=== PATIENT | female | born 1955 | race Caucasian/White ===

== ENCOUNTER 2016-08-08 06:25 | Inpatient (IN) | payer OTHER ==
[2016-07-27 15:34] VITALS: BMI 27.0
[~2016-08-08] VITALS: Ht 154.9 cm; Wt 65.5 kg
[2016-08-08] VITALS (11 sets, daily range): BP systolic 124–140; BP diastolic 70–83; PULSE 58–100; TEMP 36.5–37.1; O2SAT 94–99; Ht 154.9 cm; Wt 65.5 kg
[~2016-08-08 06:25] MED LIST: ALBU1AER9 INH; ASPEC81 PO; CEFAZOLIN 1000MG/55 ML D5W IV SCH; CEFAZOLIN 2000 MG/60 ML D5W IV SCH; DIAZ-165 PO; HYDR500C3 PO; IBUP-1050 PO; LACTATED RINGER'S 1000ML 1,000 ML IV SCH; LACTATED RINGER'S 1000ML 500 ML IV ONE; MOME200A INH; PARO1TAB27 PO; PRMVC TOP; TIOT1SPR INH; TRMO2580 TOP; [UNRECOGNIZED DRUG - CODE] TOP
[2016-08-08] MEDS ORDERED: EYE OPB (07:01)
[2016-08-08] MEDS ORDERED: FENTANYL CITRATE INJ 50 MCG/1 ML 2 ML VIAL ONE (07:54)
[2016-08-08] MEDS ORDERED: MIDAZOLAM HCL 1 MG/ML 2ML VIAL ONE (07:54)
[2016-08-08] MEDS ORDERED: MEPERIDINE HCL 25 MG/ML CARP IV PRN (08:15)
[2016-08-08] MEDS ORDERED: ATROPINE SULFATE 0.1 MG/ML 5ML SYR IV PRN (08:15)
[2016-08-08] MEDS ORDERED: EpHEDrine SULFATE INJ 50 MG/ML AMP IV PRN (08:15)
[2016-08-08] MEDS ORDERED: FENTANYL CITRATE INJ 50 MCG/1 ML 2 ML VIAL IV PRN (08:15)
[2016-08-08] MEDS ORDERED: LABETALOL HCL IV 5 MG/ML 20ML IV PRN (08:15)
[2016-08-08] MEDS ORDERED: ONDANSETRON INJ 2 MG/ML 2 ML VIAL IV PRN (08:15)
[2016-08-08] MEDS ORDERED: HYDROmorphone INJ 1 MG/ML SYR IV PRN (08:15)
--- NOTE | 2016-08-08 08:16 | History & Physical Bridge Note ---
H&P Re-Evaluation Bridge Note: I have examined the patient, reviewed the History & Physical and in the interval since the performance of the History & Physical I have noted the following changes of clinical significance: No changes noted
[2016-08-08] MEDS ORDERED: LIDOCAINE HCL 1% 20 ML VIAL ONE (09:05)
[2016-08-08] MEDS ORDERED: BUPIVACAINE 0.5 % 5 MG/1 ML MPF 30ML VIAL ONE (09:05)
[2016-08-08] MEDS ORDERED: BACITRACIN OINT 15 GM TUBE ONE (09:06)
[2016-08-08] MEDS ORDERED: METRONIDAZOLE / NSS 500 MG in PREMIXED NSS 100 ML IV STA (09:11)
[2016-08-08] MEDS ORDERED: LIDOCAINE HCL 2% 2 ML VIAL (20MG/ML) ONE (09:15)
[2016-08-08] MEDS ORDERED: DEXAMETHASONE SOD INJ 4 MG/ML VIAL ONE (09:15)
[2016-08-08] MEDS ORDERED: NEOSTIGMINE METHYLSULFATE 5 MG/5 ML SYR ONE (09:16)
[2016-08-08] MEDS ORDERED: ROCURONIUM BROMIDE 10 MG/ML 5 ML VIAL ONE ×2 (09:16→12:00)
[2016-08-08] MEDS ORDERED: ONDANSETRON INJ 2 MG/ML 2 ML VIAL ONE (09:16)
[2016-08-08] MEDS ORDERED: PROPOFOL IV EMULSION 10 MG/ML 20 ML VIAL IV ONE (09:16)
[2016-08-08] MEDS ORDERED: MoRPHine SULFATE PF 1 MG/ML 10 ML AMP/VIAL ONE (09:16)
[2016-08-08] MEDS ORDERED: GLYCOPYRROLATE INJ 0.2 MG/ML VIAL ONE (09:16)
[2016-08-08] MEDS ORDERED: LARYING-O-JET KIT (LTA) EXT ONE ×2 (09:16)
[2016-08-08] MEDS ORDERED: METRONIDAZOLE 500MG / NSS IV SCH (09:30)
[2016-08-08] MEDS ORDERED: NURSING VERBAL MED ORDER ONE (10:00)
--- NOTE | 2016-08-08 10:51 | [facility] Post Operative Brief Note ---
Immediate Operative Summary Operative Date August 08, 2016. Pre-Operative Diagnosis Cecum mass Post-Operative Diagnosis same Procedure(s) Performed Exploratory Laparotomy, Small bowel to colon Anastomosis Surgeon Dr. Kaufman Assistant Professor Of Biochemistry Surgeon(s) Tamela Contreras PA-C Estimated Blood Loss 20ml Findings large cecal mass and mesenteric mass fix on back of abdominal wall, could not resection the the masses, Fluids (cc crystalloids) 2800ml Specimens A. small bowel-colon anastomosis Drains none Anesthesia general Complication(s) None Disposition Recovery Room / PACU
--- NOTE | 2016-08-08 11:40 | DIAGNOSTIC IMAGING REPORT ---
KUB CLINICAL HISTORY: NGT Placement COMPARISON STUDY: No previous studies for comparison. FINDINGS: 2 portable studies are provided for interpretation. A nasogastric tube projects over the gastric cardia. There is no pathologic bowel dilatation. Multiple skin cathy are visualized demonstrating a vertical course. IMPRESSION: The recently placed nasogastric tube is positioned with its tip in the stomach Electronically signed by: Deepak Diaz M.D. 08/08/2016 11:39 AM Dictated Date/Time: 08/08/2016 11:38 AM
--- NOTE | 2016-08-08 11:54 | OPERATIVE REPORT ---
DATE OF OPERATION: 08/08/2016 PREOPERATIVE DIAGNOSIS: Cecum cancer, mesenteric mass. POSTOPERATIVE DIAGNOSIS: Cecum cancer with mesenteric mass. OPERATION: Exploratory laparotomy, ileo-small bowel to transverse colon with gykg-ak-elal anastomosis. SURGEON: Dr. Sarah Kaufman. MANAGER RESPIRATORY: Tamela Contreras PA-C. ANESTHESIA: General. ESTIMATED BLOOD LOSS: About 20 mL. IV FLUIDS: 2800 mL. URINE OUTPUT: 500 mL. FINDINGS: Large cecal mass with mesenteric mass fixed on the posterior abdominal wall. The tumor could not resection the bowel. COMPLICATIONS: None. INDICATIONS OF THE PROCEDURE: This is a 61-year-old female who referred for cecum cancer with mesenteric mass and the patient required to do right hemicolectomy, mesenteric measures resection. I did talk to the patient about the benefit and risk, alternate procedure. I indicated the risks may include but not limited such as bleeding, infection, anastomosis leak, myocardial infarction, DVT, stroke, even , could not resect the tumor. The patient understands. She signed informed consent and I answered all questions. OPERATION AND FINDINGS: DETAILS OF PROCEDURE: We brought the patient to the OR, put the patient in the supine position. The patient received SCD on bilateral legs to prevent DVT. Also, the patient received 2 grams Ancef IV for prophylactic antibiotic. The patient received general anesthesia without difficulty. Also, the patient received Pleitez catheter after general anesthesia, the patient's abdomen was prepped and draped in routine sterile fashion. After time out, I made a midline incision about 12 cm, opened fascia, opened peritoneum under direct vision and then once we get abdominal cavity we exposed the abdomen shows no more findings on the liver, diaphragm, ovarian, peritoneal, no free fluid on the peritoneum; however, we found the patient has a large mass of the cecum connected to the mesenteric mass around 8 x 10 cm. The mass is fixed on the posterior wall and we tried to resect the mass but we could not because it was fixed to the posterior wall. There was high risk of injury to the aorta and inferior vena cava if attemp to resection the tumor. At this moment we decided that because the patient thickened tumor is near obstruction and we decided to do ileo small bowel to the transverse bowel [id number] anastomosis, made a small opening on the small bowel about 10 cm from terminal ileum and transverse colon after right branch artery of middle colic artery, passed the 80 mm Endo-KATI staple to create a [id number]-zk-[id number] anastomosis, small bowel to colon and the opening small bowel by closing by the TIA 60 staple. Rechecked no active bleeding, no leak, and then I put a couple of 3-0 Vicryl to secure the anastomosis and rechecked no active bleeding, no leak. At this moment because of the tumor huge could not resection and I feel patient maybe benefit from small bowel to large bowel bypass and get chemo. If chemo can shrink the tumor risk and may take the patient back to do the resection of the tumor. At this moment, hemostasis obtained. I closed the abdominal fascial layer by using #1 PDS continuous running, closed subcutaneous layer by using 2-0 Vicryl, closed skin by using staple. We put the dressing on. The patient tolerated the procedure well and after the procedure the patient transferred to recovery room in stable condition. All the instrument, needle and sponge count correct x2 at the end of case. Anastomosis stoma was sent to pathology and also after procedure, I did talk to the patient and her and daughter about the OR finding and could not resect the tumor, we only did bypass, small bowel to large bowel. They understand. I attest to the content of the Intraoperative Record and any orders documented therein. Any exceptions are noted below. AHSAND
--- NOTE | 2016-08-08 12:15 | Anesthesiology Progress Note ---
Anesthesia Post Op Note Date & Time August 08, 2016 at 12:15 Vital Signs Pain Intensity: 4 Vital Signs Past 12 Hours Date Time Temp Pulse Resp B/P Pulse Ox O2 Delivery O2 Flow Rate FiO2 08/08/16 12:04 36.9 83 20 138/83 96 Nasal Cannula 2.0 08/08/16 11:40 36.4 83 17 140/85 96 Nasal Cannula 2 08/08/16 11:30 84 20 149/85 94 Nasal Cannula 2 08/08/16 11:20 89 16 135/69 93 Nasal Cannula 2 08/08/16 11:10 78 30 138/82 97 Nasal Cannula 2 08/08/16 11:00 85 21 142/87 96 Nasal Cannula 2 08/08/16 10:50 79 14 140/82 96 Mask 10 08/08/16 10:40 86 18 151/86 98 Mask 10 08/08/16 10:33 36.2 89 16 149/97 97 Mask 10 08/08/16 06:50 36.6 58 20 140/79 99 Room Air Notes Mental Status: alert / awake / arousable, participated in evaluation Pt Amnestic to Procedure: Yes Nausea / Vomiting: adequately controlled Pain: adequately controlled Airway Patency, RR, SpO2: stable & adequate BP & HR: stable & adequate Hydration State: stable & adequate Anesthetic Complications: no major complications apparent
[2016-08-08] MEDS: HYDROmorphone INJ 1 MG/ML SYR IV PRN ×3 (13:27→22:42)
[2016-08-08] MEDS: D5W AND 1/2NSS + 20MEQ KCL 1,000 ML IV SCH (13:28)
[2016-08-08] MEDS: CEFAZOLIN IV 1,000 MG in DEXTROSE 5% 50ML 50 ML IV SCH (15:52)
[2016-08-08] MEDS: METRONIDAZOLE / NSS 500 MG in PREMIXED NSS 100 ML IV SCH (17:22)
[2016-08-09] MEDS: D5W AND 1/2NSS + 20MEQ KCL 1,000 ML IV SCH ×3 (00:08→18:45)
[2016-08-09] MEDS: CEFAZOLIN IV 1,000 MG in DEXTROSE 5% 50ML 50 ML IV SCH ×2 (00:08→08:59)
[2016-08-09] MEDS: METRONIDAZOLE / NSS 500 MG in PREMIXED NSS 100 ML IV SCH ×2 (02:24→10:43)
[2016-08-09] MEDS: HYDROmorphone INJ 1 MG/ML SYR IV PRN ×6 (02:27→21:45)
[2016-08-09 04:05] VITALS: BP 125/74; PULSE 78; TEMP 36.9; O2SAT 96
[2016-08-09] MEDS ORDERED: CEFAZOLIN IV 2,000 MG/60 ML D5W IV ONE (06:00)
[2016-08-09 08:27] LABS: BASO % 0.2 %; BASO ABS # 0.01 K/uL (0-0.2); EOS % 0.3 %; IG% 0.3 %; LYMPH % 8.3 %; LYMPH ABS # 0.53 K/uL (1.2-3.4); MEAN CELL VOLUME 116.2 fL (80-100); MEAN CORPUSCULAR HEMOGLOBIN 36.4 pg (25-34); MEAN CORPUSCULAR HGB CONC 31.3 g/dl (32-36); MEAN PLATELET VOLUME 9.3 fL (7.4-10.4); NEUT % 81.9 %; PLATELET COUNT 389 K/uL (130-400); RED BLOOD COUNT 3.27 M/uL (4.2-5.4); WHITE BLOOD COUNT 6.35 K/uL (4.8-10.8)
[2016-08-09 08:30] VITALS: BP 129/78; PULSE 80; TEMP 37.2; O2SAT 93
[2016-08-09 08:57] LABS: CALCIUM 7.8 mg/dl (8.5-10.1)
[2016-08-09 08:58] LABS: CREATININE 0.75 mg/dl (0.60-1.20)
[2016-08-09 08:59] LABS: BUN/CREATININE RATIO 8.3 (10-20); POTASSIUM 3.8 mmol/L (3.5-5.1)
[2016-08-09 09:19] LABS: COMPLETE YES; GIANT PLATELETS 1+
[2016-08-09] MEDS ORDERED: NURSING VERBAL MED ORDER ONE (10:30)
--- NOTE | 2016-08-09 12:10 | Surgery Progress Note ---
Surgery Progress Note Date of Service August 09, 2016. Subjective Post OP Day: 1 + feeling well pt is stable over night, pt denies nausea, no vomiting, good urine output, NG 400ml, Objective Vital Signs: Date Time Temp Pulse Resp B/P Pulse Ox O2 Delivery O2 Flow Rate FiO2 08/09/16 08:30 37.2 80 18 129/78 93 Nasal Cannula 2.0 08/09/16 08:00 Nasal Cannula 2.0 08/09/16 04:05 36.9 78 16 125/74 96 Nasal Cannula 2.0 08/08/16 23:59 Nasal Cannula 2.0 08/08/16 22:55 36.9 85 16 133/79 94 Nasal Cannula 2.0 08/08/16 19:15 37.1 88 16 124/72 95 Nasal Cannula 2.0 08/08/16 16:22 36.5 94 18 130/79 95 Nasal Cannula 2.0 08/08/16 16:00 95 Room Air 2.0 08/08/16 13:57 100 18 138/74 95 Room Air 08/08/16 13:31 36.9 94 20 124/70 95 Room Air 2.0 08/08/16 12:52 96 Room Air 2.0 08/08/16 12:45 36.9 88 20 128/75 96 Nasal Cannula 2.0 General Appearance: WD/WN Head: normocephalic Neck: supple Respiratory/Chest: chest non-tender, lungs clear, normal breath sounds Cardiovascular: regular rate, rhythm, no edema, no gallop, no JVD Abdomen: normal bowel sounds, non distended, soft, + tenderness Incision(s): clean, dry, intact Extremities: normal range of motion, non-tender, normal inspection Laboratory Results: Results Past 24 Hours Test 08/09/16 07:51 Range/Units White Blood Count 6.35 4.8-10.8 K/uL Red Blood Count 3.27 4.2-5.4 M/uL Hemoglobin 11.9 12.0-16.0 g/dL Hematocrit 38.0 37-47 % Mean Corpuscular Volume 116.2 80-100 fL Mean Corpuscular Hemoglobin 36.4 25-34 pg Mean Corpuscular Hemoglobin Concent 31.3 32-36 g/dl Platelet Count 389 130-400 K/uL Mean Platelet Volume 9.3 7.4-10.4 fL Neutrophils (%) (Auto) 81.9 % Lymphocytes (%) (Auto) 8.3 % Monocytes (%) (Auto) 9.0 % Eosinophils (%) (Auto) 0.3 % Basophils (%) (Auto) 0.2 % Neutrophils # (Auto) 5.20 1.4-6.5 K/uL Lymphocytes # (Auto) 0.53 1.2-3.4 K/uL Monocytes # (Auto) 0.57 0.11-0.59 K/uL Eosinophils # (Auto) 0.02 0-0.5 K/uL Basophils # (Auto) 0.01 0-0.2 K/uL RDW Standard Deviation 57.9 36.4-46.3 fL RDW Coefficient of Variation 13.7 11.5-14.5 % Immature Granulocyte % (Auto) 0.3 % Immature Granulocyte # (Auto) 0.02 0.00-0.02 K/uL Giant Platelets 1+ Macrocytosis PRESENT Sodium Level 143 136-145 mmol/L Potassium Level 3.8 3.5-5.1 mmol/L Chloride Level 108 98-107 mmol/L Carbon Dioxide Level 28 21-32 mmol/L Anion Gap 7.0 3-11 mmol/L Blood Urea Nitrogen 6 7-18 mg/dl Creatinine 0.75 0.60-1.20 mg/dl Est Creatinine Clear Calc Drug Dose 69.9 ml/min Estimated GFR () 101.1 Estimated GFR (Non- 87.2 BUN/Creatinine Ratio 8.3 10-20 Random Glucose 121 70-99 mg/dl Calcium Level 7.8 8.5-10.1 mg/dl Total Bilirubin 0.7 0.2-1 mg/dl Aspartate Amino Transf (AST/SGOT) 15 15-37 U/L Alanine Aminotransferase (ALT/SGPT) 24 12-78 U/L Alkaline Phosphatase 65 45-117 U/L Total Protein 5.8 6.4-8.2 gm/dl Albumin 2.9 3.4-5.0 gm/dl Globulin 2.9 2.5-4.0 gm/dl Albumin/Globulin Ratio 1.0 0.9-2 Assessment & Plan S/P Exp lap, small bowel to colon side to side anastomosis, unresectable colon and mesenteric tumors, POD 1, I update information to pt and her about or finding and the procedure pt had, they understood, I answered all questions, pt is doing fine continue treatment, will F/U,
[2016-08-09 13:32] VITALS: BP 114/67; PULSE 76; TEMP 36.8; O2SAT 95
[2016-08-09 15:01] VITALS: BP 108/69; PULSE 73; TEMP 36.9; O2SAT 95
[2016-08-09 18:50] VITALS: BP 96/92; PULSE 81; TEMP 36.5; O2SAT 96
[2016-08-09 23:15] VITALS: BP 116/69; PULSE 81; TEMP 36.6; O2SAT 96
[2016-08-10] VITALS (7 sets, daily range): BP systolic 113–143; BP diastolic 63–84; PULSE 47–80; TEMP 36.6–36.8; O2SAT 91–100
[2016-08-10] MEDS: HYDROmorphone INJ 1 MG/ML SYR IV PRN ×5 (02:45→23:28)
[2016-08-10] MEDS: D5W AND 1/2NSS + 20MEQ KCL 1,000 ML IV SCH ×2 (04:46→14:23)
--- NOTE | 2016-08-10 07:32 | Surgery Progress Note ---
Surgery Progress Note Date of Service Aug 10, 2016. Subjective Post OP Day: 2 + feeling well doing better, no C/O, not pass gas yet, Objective Vital Signs: Date Time Temp Pulse Resp B/P (MAP) Pulse Ox O2 Delivery O2 Flow Rate FiO2 08/09/16 23:15 36.6 81 16 116/69 (85) 96 Nasal Cannula 2.0 08/09/16 22:45 Nasal Cannula 2.0 08/09/16 18:50 36.5 81 18 96/92 (93) 96 Nasal Cannula 2.0 08/09/16 16:10 Nasal Cannula 2.0 08/09/16 15:01 36.9 73 20 108/69 (82) 95 Nasal Cannula 2.0 08/09/16 13:32 36.8 76 18 114/67 (83) 95 Nasal Cannula 2.0 08/09/16 08:30 37.2 80 18 129/78 (95) 93 Nasal Cannula 2.0 08/09/16 08:00 Nasal Cannula 2.0 General Appearance: WD/WN Head: normocephalic Neck: supple, no JVD Respiratory/Chest: chest non-tender, lungs clear, normal breath sounds Cardiovascular: regular rate, rhythm, no edema, no gallop, no JVD Abdomen: normal bowel sounds, non tender, non distended, soft Incision(s): clean, dry, intact Extremities: normal range of motion, non-tender, normal inspection Laboratory Results: Results Past 24 Hours Test 08/09/16 07:51 Range/Units White Blood Count 6.35 4.8-10.8 K/uL Red Blood Count 3.27 4.2-5.4 M/uL Hemoglobin 11.9 12.0-16.0 g/dL Hematocrit 38.0 37-47 % Mean Corpuscular Volume 116.2 80-100 fL Mean Corpuscular Hemoglobin 36.4 25-34 pg Mean Corpuscular Hemoglobin Concent 31.3 32-36 g/dl Platelet Count 389 130-400 K/uL Mean Platelet Volume 9.3 7.4-10.4 fL Neutrophils (%) (Auto) 81.9 % Lymphocytes (%) (Auto) 8.3 % Monocytes (%) (Auto) 9.0 % Eosinophils (%) (Auto) 0.3 % Basophils (%) (Auto) 0.2 % Neutrophils # (Auto) 5.20 1.4-6.5 K/uL Lymphocytes # (Auto) 0.53 1.2-3.4 K/uL Monocytes # (Auto) 0.57 0.11-0.59 K/uL Eosinophils # (Auto) 0.02 0-0.5 K/uL Basophils # (Auto) 0.01 0-0.2 K/uL RDW Standard Deviation 57.9 36.4-46.3 fL RDW Coefficient of Variation 13.7 11.5-14.5 % Immature Granulocyte % (Auto) 0.3 % Immature Granulocyte # (Auto) 0.02 0.00-0.02 K/uL Giant Platelets 1+ Macrocytosis PRESENT Sodium Level 143 136-145 mmol/L Potassium Level 3.8 3.5-5.1 mmol/L Chloride Level 108 98-107 mmol/L Carbon Dioxide Level 28 21-32 mmol/L Anion Gap 7.0 3-11 mmol/L Blood Urea Nitrogen 6 7-18 mg/dl Creatinine 0.75 0.60-1.20 mg/dl Est Creatinine Clear Calc Drug Dose 69.9 ml/min Estimated GFR () 101.1 Estimated GFR (Non- 87.2 BUN/Creatinine Ratio 8.3 10-20 Random Glucose 121 70-99 mg/dl Calcium Level 7.8 8.5-10.1 mg/dl Total Bilirubin 0.7 0.2-1 mg/dl Aspartate Amino Transf (AST/SGOT) 15 15-37 U/L Alanine Aminotransferase (ALT/SGPT) 24 12-78 U/L Alkaline Phosphatase 65 45-117 U/L Total Protein 5.8 6.4-8.2 gm/dl Albumin 2.9 3.4-5.0 gm/dl Globulin 2.9 2.5-4.0 gm/dl Albumin/Globulin Ratio 1.0 0.9-2 Assessment & Plan S/P Exp lap, small bowel to colon side to side anastomosis, unresectable colon and mesenteric tumors, POD 1, I update information to pt and her about or finding and the procedure pt had, they understood, I answered all questions, pt is doing fine continue treatment, will F/U, 08/10/2016 doing better, continue treatment will F/U S/P Exp lap, small bowel to colon side to side anastomosis, unresectable colon and mesenteric tumors, POD 1, I update information to pt and her about or finding and the procedure pt had, they understood, I answered all questions, pt is doing fine continue treatment, will F/U,
[2016-08-10] MEDS: TIOTROPIUM BROMIDE 5 PUFF/90 MCG INH INH SCH (09:15)
[2016-08-10] MEDS: MOMETASONE FUROATE-FORMOTEROL (DULERA) 200mcg/5mcg per inh INH SCH (11:22)
[2016-08-10] MEDS: ONDANSETRON INJ 2 MG/ML 2 ML VIAL IV PRN (23:23)
[2016-08-11] MEDS: D5W AND 1/2NSS + 20MEQ KCL 1,000 ML IV SCH ×3 (00:08→20:37)
[2016-08-11] MEDS: ONDANSETRON INJ 2 MG/ML 2 ML VIAL IV PRN (05:22)
[2016-08-11 07:35] VITALS: BP 126/85; PULSE 90; TEMP 36.5; O2SAT 91
[2016-08-11] MEDS: TIOTROPIUM BROMIDE 5 PUFF/90 MCG INH INH SCH (08:21)
[2016-08-11] MEDS: MOMETASONE FUROATE-FORMOTEROL (DULERA) 200mcg/5mcg per inh INH SCH (08:21)
[2016-08-11 08:58] LABS: HEMATOCRIT 37.9 % (37-47); MEAN CELL VOLUME 117.3 fL (80-100); MEAN CORPUSCULAR HEMOGLOBIN 38.4 pg (25-34); MEAN CORPUSCULAR HGB CONC 32.7 g/dl (32-36); MEAN PLATELET VOLUME 9.5 fL (7.4-10.4); PLATELET COUNT 373 K/uL (130-400); RED BLOOD COUNT 3.23 M/uL (4.2-5.4); WHITE BLOOD COUNT 7.38 K/uL (4.8-10.8)
--- NOTE | 2016-08-11 09:12 | Surgery Progress Note ---
Surgery Progress Note Date of Service Aug 11, 2016. Subjective Post OP Day: 3 + pain controlled, No chest pain, No SOB, No bowel movement, No flatus, No nausea, No vomiting does not like the NGT Objective Vital Signs: Date Time Temp Pulse Resp B/P (MAP) Pulse Ox O2 Delivery O2 Flow Rate FiO2 08/11/16 07:35 36.5 90 18 126/85 (99) 91 Room Air 08/11/16 00:01 Room Air 08/10/16 22:57 36.6 80 17 134/81 (98) 93 Room Air 08/10/16 19:53 36.7 80 16 128/83 (98) 91 Room Air 08/10/16 16:04 94 Room Air 08/10/16 15:30 Nasal Cannula 2.0 08/10/16 15:28 36.8 72 16 120/77 (91) 98 Room Air 08/10/16 12:07 36.6 78 16 113/74 (87) 98 Nasal Cannula 2.0 Physical Exam: nasogastric drainage (greenish brown output) General Appearance: WD/WN, no apparent distress Head: normocephalic, atraumatic Neck: trachea midline Respiratory/Chest: lungs clear, normal breath sounds, no respiratory distress, no accessory muscle use Abdomen: non distended, soft, + tenderness (appropriate post op) Incision(s): clean, dry, intact, no erythema, findings (cathy present) Laboratory Results: Results Past 24 Hours Test 08/11/16 08:30 Range/Units White Blood Count 7.38 4.8-10.8 K/uL Red Blood Count 3.23 4.2-5.4 M/uL Hemoglobin 12.4 12.0-16.0 g/dL Hematocrit 37.9 37-47 % Mean Corpuscular Volume 117.3 80-100 fL Mean Corpuscular Hemoglobin 38.4 25-34 pg Mean Corpuscular Hemoglobin Concent 32.7 32-36 g/dl RDW Standard Deviation 58.4 36.4-46.3 fL RDW Coefficient of Variation 13.5 11.5-14.5 % Platelet Count 373 130-400 K/uL Mean Platelet Volume 9.5 7.4-10.4 fL Assessment & Plan POD # 3 s/p small bowel to colonic side to side ansatomosis bypass, unresectable cecal and mesenteric mass -vitals stable - no return of bowel function yet - NGT with 300 mls output last shift - abdominal pain controlled Plan: D/C NGT today Keep NPO, may start liquids tomorrow continue IV fluids Continue IV pain medication as needed Repeat am labs Dr. Kaufman has seen and examined patient, agrees with above
[2016-08-11 09:35] LABS: BUN/CREATININE RATIO 5.7 (10-20); CREATININE 0.56 mg/dl (0.60-1.20); POTASSIUM 3.9 mmol/L (3.5-5.1)
[2016-08-11 09:36] VITALS: BP 127/78; PULSE 77; TEMP 37; O2SAT 96
[2016-08-11 09:40] LABS: CALCIUM 8.7 mg/dl (8.5-10.1)
[2016-08-11] MEDS ORDERED: PANTOprazole INJ 80 MG in DEXTROSE 5% 100ML 100 ML IV ONE (12:30)
[2016-08-11 14:59] VITALS: BP 116/72; PULSE 80; TEMP 36.9; O2SAT 94
[2016-08-11 19:28] VITALS: BP 138/71; PULSE 92; TEMP 36.7; O2SAT 93
[2016-08-11] MEDS: HYDROmorphone INJ 1 MG/ML SYR IV PRN (19:37)
[2016-08-11] MEDS: PANTOprazole INJ 40 MG in SYRINGE 0 ML IV SCH (20:37)
[2016-08-11 23:11] VITALS: BP 111/71; PULSE 73; TEMP 36.7; O2SAT 93
[2016-08-12] MEDS: HYDROmorphone INJ 1 MG/ML SYR IV PRN ×3 (01:47→20:07)
[2016-08-12] MEDS: D5W AND 1/2NSS + 20MEQ KCL 1,000 ML IV SCH ×2 (06:17→16:57)
[2016-08-12 08:01] VITALS: BP 114/70; PULSE 73; TEMP 36.6; O2SAT 92
[2016-08-12] MEDS: MOMETASONE FUROATE-FORMOTEROL (DULERA) 200mcg/5mcg per inh INH SCH (08:51)
[2016-08-12] MEDS: TIOTROPIUM BROMIDE 5 PUFF/90 MCG INH INH SCH (08:51)
[2016-08-12] MEDS: PANTOprazole INJ 40 MG in SYRINGE 0 ML IV SCH ×2 (08:51→21:01)
[2016-08-12 10:36] VITALS: O2SAT 92
[2016-08-12 11:35] VITALS: BP 120/78; PULSE 73; TEMP 36.5; O2SAT 94
--- NOTE | 2016-08-12 11:52 | Surgery Progress Note ---
Surgery Progress Note Date of Service Aug 12, 2016. Subjective Post OP Day: 4 + feeling well pt is doing better, passed gas, no abdominal pain, no nausea, no vomiting, Objective Vital Signs: Date Time Temp Pulse Resp B/P (MAP) Pulse Ox O2 Delivery O2 Flow Rate FiO2 08/12/16 11:35 36.5 73 16 120/78 (92) 94 Room Air 08/12/16 10:36 92 Room Air 08/12/16 08:01 36.6 73 16 114/70 (85) 92 Room Air 08/12/16 07:20 Room Air 08/11/16 23:30 Room Air 08/11/16 23:11 36.7 73 18 111/71 (84) 93 Room Air 08/11/16 19:28 36.7 92 16 138/71 (93) 93 Room Air 08/11/16 15:45 Room Air 08/11/16 14:59 36.9 80 16 116/72 (87) 94 Room Air General Appearance: WD/WN, no apparent distress Head: normocephalic Neck: supple, no adenopathy, no JVD Respiratory/Chest: chest non-tender, lungs clear Cardiovascular: regular rate, rhythm, no edema, no gallop, no JVD Abdomen: normal bowel sounds, non tender, non distended, soft Incision(s): clean, dry, intact Extremities: normal range of motion, non-tender, normal inspection Assessment & Plan S/P Exp lap, small bowel to colon side to side anastomosis, unresectable colon and mesenteric tumors, POD 1, I update information to pt and her about or finding and the procedure pt had, they understood, I answered all questions, pt is doing fine continue treatment, will F/U, 08/10/2016 doing better, continue treatment will F/U 08/12/2016 pt is doing better, clear diet, will F/U clear liquids S/P Exp lap, small bowel to colon side to side anastomosis, unresectable colon and mesenteric tumors, POD 1, I update information to pt and her about or finding and the procedure pt had, they understood, I answered all questions, pt is doing fine continue treatment, will F/U, 08/10/2016 doing better, continue treatment will F/U
[2016-08-12 15:26] VITALS: BP 120/80; PULSE 79; TEMP 36.6; O2SAT 94
[2016-08-12 22:56] VITALS: BP 121/73; PULSE 76; TEMP 36.6; O2SAT 94
[2016-08-13] MEDS: HYDROmorphone INJ 1 MG/ML SYR IV PRN ×5 (00:06→13:54)
[2016-08-13] MEDS: D5W AND 1/2NSS + 20MEQ KCL 1,000 ML IV SCH ×2 (02:31→13:50)
[2016-08-13 07:35] VITALS: O2SAT 92
[2016-08-13 07:55] VITALS: BP 134/76; PULSE 77; TEMP 36.8; O2SAT 93
[2016-08-13] MEDS: TIOTROPIUM BROMIDE 5 PUFF/90 MCG INH INH SCH (09:03)
[2016-08-13] MEDS: MOMETASONE FUROATE-FORMOTEROL (DULERA) 200mcg/5mcg per inh INH SCH (09:03)
[2016-08-13] MEDS: PANTOprazole INJ 40 MG in SYRINGE 0 ML IV SCH ×2 (09:03→21:26)
--- NOTE | 2016-08-13 10:44 | Surgery Progress Note ---
Surgery Progress Note Date of Service Aug 13, 2016. Subjective Post OP Day: 5 + feeling well pt is doing better, no nausea, no vomiting, she tolerated clear diet, Objective Vital Signs: Date Time Temp Pulse Resp B/P (MAP) Pulse Ox O2 Delivery O2 Flow Rate FiO2 08/13/16 07:55 36.8 77 19 134/76 (95) 93 Room Air 08/13/16 07:35 92 Room Air 08/13/16 00:14 Room Air 08/12/16 22:56 36.6 76 14 121/73 (89) 94 Room Air 08/12/16 15:45 Room Air 08/12/16 15:26 36.6 79 16 120/80 (93) 94 Room Air 08/12/16 11:35 36.5 73 16 120/78 (92) 94 Room Air General Appearance: WD/WN Head: normocephalic Neck: supple, no JVD Respiratory/Chest: chest non-tender, lungs clear Cardiovascular: regular rate, rhythm, no edema, no gallop, no JVD Abdomen: normal bowel sounds, non tender, non distended, soft Incision(s): clean, dry, intact Extremities: normal range of motion, non-tender, normal inspection Assessment & Plan S/P Exp lap, small bowel to colon side to side anastomosis, unresectable colon and mesenteric tumors, POD 1, I update information to pt and her about or finding and the procedure pt had, they understood, I answered all questions, pt is doing fine continue treatment, will F/U, 08/10/2016 doing better, continue treatment will F/U 08/12/2016 pt is doing better, clear diet, will F/U 08/13/2016 doing well, decrease iv fluid full liquid diet labs in am will F/U possible D/C home tomorrow, oncologist consult, S/P Exp lap, small bowel to colon side to side anastomosis, unresectable colon and mesenteric tumors, POD 1, I update information to pt and her about or finding and the procedure pt had, they understood, I answered all questions, pt is doing fine continue treatment, will F/U, 08/10/2016 doing better, continue treatment will F/U 08/12/2016 pt is doing better, clear diet, will F/U
[2016-08-13 15:11] VITALS: BP 143/80; PULSE 78; TEMP 36.6; O2SAT 93
[2016-08-13] MEDS: OXYCODONE/ACETAMINOPHEN 5-325 TAB PO PRN ×2 (17:01→23:11)
[2016-08-13 23:03] VITALS: BP 111/70; PULSE 80; TEMP 36.3; O2SAT 93
[2016-08-14 07:05] VITALS: BP 158/87; PULSE 77; TEMP 36.4; O2SAT 91
[2016-08-14 07:10] VITALS: O2SAT 94
[2016-08-14 07:23] LABS: BASO % 0.4 %; BASO ABS # 0.02 K/uL (0-0.2); EOS % 2.4 %; HEMATOCRIT 35.6 % (37-47); IG% 0.2 %; LYMPH % 11.2 %; LYMPH ABS # 0.56 K/uL (1.2-3.4); MEAN CELL VOLUME 111.9 fL (80-100); MEAN CORPUSCULAR HEMOGLOBIN 35.8 pg (25-34); MEAN PLATELET VOLUME 9.7 fL (7.4-10.4); MONO % 10.4 %; NEUT % 75.4 %; PLATELET COUNT 355 K/uL (130-400); RED BLOOD COUNT 3.18 M/uL (4.2-5.4); WHITE BLOOD COUNT 4.98 K/uL (4.8-10.8)
[2016-08-14 07:52] LABS: BUN/CREATININE RATIO 6.7 (10-20); CALCIUM 8.5 mg/dl (8.5-10.1); CREATININE 0.57 mg/dl (0.60-1.20); POTASSIUM 3.8 mmol/L (3.5-5.1)
[2016-08-14 07:54] LABS: ALB/GLOB RATIO 0.8 (0.9-2)
[2016-08-14 07:55] LABS: COMPLETE YES; LARGE PLATELETS 1+
[2016-08-14] MEDS: MOMETASONE FUROATE-FORMOTEROL (DULERA) 200mcg/5mcg per inh INH SCH (08:37)
[2016-08-14] MEDS: TIOTROPIUM BROMIDE 5 PUFF/90 MCG INH INH SCH (08:38)
[2016-08-14] MEDS: PANTOprazole INJ 40 MG in SYRINGE 0 ML IV SCH (08:40)
[2016-08-14] MEDS: D5W AND 1/2NSS + 20MEQ KCL 1,000 ML IV SCH (09:24)
--- NOTE | 2016-08-14 10:57 | Surgery Progress Note ---
Surgery Progress Note Date of Service Aug 14, 2016. Subjective + feeling well pt is doing better, no nausea, no vomiting, she tolerataed clear diet, pt wants to go home today, oncologist DR. Chung will see pt today, Objective Vital Signs: Date Time Temp Pulse Resp B/P (MAP) Pulse Ox O2 Delivery O2 Flow Rate FiO2 08/14/16 07:10 94 Room Air 08/14/16 07:05 36.4 77 16 158/87 (110) 91 Room Air 08/13/16 23:15 Room Air 08/13/16 23:03 36.3 80 18 111/70 (84) 93 Room Air 08/13/16 15:45 Room Air 08/13/16 15:11 36.6 78 16 143/80 (101) 93 Room Air General Appearance: WD/WN, no apparent distress Head: normocephalic Neck: supple, no JVD Respiratory/Chest: chest non-tender, lungs clear, normal breath sounds Cardiovascular: regular rate, rhythm, no edema, no gallop, no JVD Abdomen: normal bowel sounds, non tender, non distended, soft Incision(s): clean, dry, intact Extremities: normal range of motion, non-tender, normal inspection Laboratory Results: Results Past 24 Hours Test 08/14/16 06:41 Range/Units White Blood Count 4.98 4.8-10.8 K/uL Red Blood Count 3.18 4.2-5.4 M/uL Hemoglobin 11.4 12.0-16.0 g/dL Hematocrit 35.6 37-47 % Mean Corpuscular Volume 111.9 80-100 fL Mean Corpuscular Hemoglobin 35.8 25-34 pg Mean Corpuscular Hemoglobin Concent 32.0 32-36 g/dl Platelet Count 355 130-400 K/uL Mean Platelet Volume 9.7 7.4-10.4 fL Neutrophils (%) (Auto) 75.4 % Lymphocytes (%) (Auto) 11.2 % Monocytes (%) (Auto) 10.4 % Eosinophils (%) (Auto) 2.4 % Basophils (%) (Auto) 0.4 % Neutrophils # (Auto) 3.75 1.4-6.5 K/uL Lymphocytes # (Auto) 0.56 1.2-3.4 K/uL Monocytes # (Auto) 0.52 0.11-0.59 K/uL Eosinophils # (Auto) 0.12 0-0.5 K/uL Basophils # (Auto) 0.02 0-0.2 K/uL RDW Standard Deviation 53.0 36.4-46.3 fL RDW Coefficient of Variation 12.9 11.5-14.5 % Immature Granulocyte % (Auto) 0.2 % Immature Granulocyte # (Auto) 0.01 0.00-0.02 K/uL Large Platelets 1+ Macrocytosis PRESENT Sodium Level 143 136-145 mmol/L Potassium Level 3.8 3.5-5.1 mmol/L Chloride Level 107 98-107 mmol/L Carbon Dioxide Level 28 21-32 mmol/L Anion Gap 8.0 3-11 mmol/L Blood Urea Nitrogen 4 7-18 mg/dl Creatinine 0.57 0.60-1.20 mg/dl Est Creatinine Clear Calc Drug Dose 92.0 ml/min Estimated GFR () 117.6 Estimated GFR (Non- 101.5 BUN/Creatinine Ratio 6.7 10-20 Random Glucose 100 70-99 mg/dl Calcium Level 8.5 8.5-10.1 mg/dl Total Bilirubin 0.6 0.2-1 mg/dl Aspartate Amino Transf (AST/SGOT) 11 15-37 U/L Alanine Aminotransferase (ALT/SGPT) 16 12-78 U/L Alkaline Phosphatase 69 45-117 U/L Total Protein 6.1 6.4-8.2 gm/dl Albumin 2.8 3.4-5.0 gm/dl Globulin 3.3 2.5-4.0 gm/dl Albumin/Globulin Ratio 0.8 0.9-2 Assessment & Plan S/P Exp lap, small bowel to colon side to side anastomosis, unresectable colon and mesenteric tumors, POD 1, I update information to pt and her about or finding and the procedure pt had, they understood, I answered all questions, pt is doing fine continue treatment, will F/U, 08/10/2016 doing better, continue treatment will F/U 08/12/2016 pt is doing better, clear diet, will F/U 08/13/2016 doing well, decrease iv fluid full liquid diet labs in am will F/U possible D/C home tomorrow, oncologist consult, 08/14/2016 D/C home today I gave pt post-op care instruction, F/U 1 week, full liquids S/P Exp lap, small bowel to colon side to side anastomosis, unresectable colon and mesenteric tumors, POD 1, I update information to pt and her about or finding and the procedure pt had, they understood, I answered all questions, pt is doing fine continue treatment, will F/U, 08/10/2016 doing better, continue treatment will F/U 08/12/2016 pt is doing better, clear diet, will F/U 08/13/2016 doing well, decrease iv fluid full liquid diet labs in am will F/U possible D/C home tomorrow, oncologist consult,
[2016-08-14] MEDS ORDERED: DOCU-94 PO (11:03)
[2016-08-14] MEDS ORDERED: OXYC-57 PO (11:03)
--- NOTE | 2016-08-14 11:09 | Discharge Instructions ---
Discharge Instructions Date of Service Aug 14, 2016. Admission Reason for Admission: Colon Cancer Discharge Discharge Diagnosis / Problem: exploratory laparotomy, small bowel-colon naastomosis, Discharge Goals Goal(s): Decrease discomfort, Improve function Activity Recommendations Activity Limitations: per Instructions/Follow-up section Lifting Limitations: no more than 25 pounds Exercise/Sports Limitations: gradually increase as tolerated May Resume Sexual Activity: when tolerated Shower/Bathe: may shower/bathe in 3 days . Instructions / Follow-Up Instructions / Follow-Up keep crow dressing on foe a day, she can take a shower on 08/15/2016, no driving while taking pain medicine, follow up 1 week, Current Hospital Diet Patient's current hospital diet: Full Liquid Diet Discharge Diet Recommended Diet: Full Liquid Diet (full liquid diet today, soft diet tomorrow , ) Procedures Procedures Performed: Exploratory Laparotomy, Small bowel to colon Anastomosis Pending Studies Studies pending at discharge: no Medical Emergencies . Who to Call and When: Medical Emergencies: If at any time you feel your situation is an emergency, please call 911 immediately. . Non-Emergent Contact Non-Emergency issues call your: Surgeon Call Non-Emergent contact if: you have a fever, temperature is above 100.5, your pain is not controlled, your pain is worsening, wound has increased drainage, wound has increased redness . "Provider Documentation" section prepared by Sarah Kaufman. . VTE Core Measure Inpt VTE Proph given/why not?: SCD's [place] Drug Monitoring Program Search Results: no issues identified
[2016-08-14 13:08] VITALS: BP 158/87; PULSE 77; TEMP 36.4; O2SAT 94
--- NOTE | 2016-08-14 13:08 | Medical Consult ---
Consultation Date of Consultation: Aug 14, 2016. 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 Araujo is a 61 yo CF known well to the consulting Medical Oncology Service. She has been under the care of Dr. Chung for essential thrombocythemia, taking Hydrea, since 2005. On 07/19/2016, she reported for routine colonoscopy with Dr. Isaacs. A frondlike /villous infiltrative and ulcerated large mass was found in the cecum. No bleeding was present. Multiple large mouth diverticula in the sigmoid. The pathology from the cecal biopsy revealed invasive adenocarcinoma, moderately to poorly differentiated. MSI negative. CDX2 positive, CK 20 positive, CK7 negative. CEA on 07/19/16 was 1.9 ng/mL (normal). She had a follow-up staging evaluation with CT scans of the chest/ abdomen / pelvis on 07/20/2016: No suspicious lung nodules. No pleural effusions. Nonspecific mildly enlarged superior right hilar lymph node having a short axis measurement of 13 mm. Superior right hilar node has not significantly changed since May 2014. Several small mediastinal lymph nodes noted. Small bilateral axillary lymph nodes. Liver was unremarkable. Slight nodularity of the adrenal glands, unchanged since May 2014. indistinct soft tissue mass in the cecum with adjacent nodularity in the mesentery. Soft tissue stranding adjacent to the cecum and what appears to be a mildly irregular soft tissue mass in the mesentery of the right lower quadrant. This heterogenously enhancing right lower quadrant mesenteric mass measures 5.4 x 3.8 cm. Small retroperitoneal lymph nodes. No bony destructive lesions. She subsequently had exploratory laparotomy on 08/08/2016 at [facility] for a planned right hemicolectomy with mesenteric metastatectomy. It was determined at that time that she was not resectable ; she did undergo ileo small bowel to transverse colon anastomosis at that time. Small bowel partial resection from : Benign colonic and small bowel type mucosa without pathologic change. Negative for malignancy. Medical Oncology has been asked to consult for systemic treatment options. She reports feeling overall well. She has minimal pain from exploratory laparotomy at this time. She states her ostomy is functioning well. She reports a good energy level. She has no cough or dyspnea. She reports a good appetite and has not had nausea or vomiting. Prior to her colon cancer diagnosis incidentally found on routine colonoscopy in July 2016, she reports that she had no major symptoms to indicate an active cancer. She states she was having mild intermittent right lower abdominal pain, but otherwise asymptomatic. She has been off of her Hydrea since the surgery. Social History Smoking Status: Former Smoker Marital Status: Housing Status: lives with family Occupation Status: employed Allergies Coded Allergies: No Known Allergies (Verified , 08/08/16) Current Inpatient Medications Current Inpatient Medications Medications (Trade) Dose Ordered Sig/Yolanda Route Start Time Stop Time Status Last Admin Dose Admin Potassium Chloride/Dextrose/ Sod Cl 1,000 ml @ 50 mls/hr Q20H IV 08/08/16 13:00 09/07/16 12:59 08/14/16 09:24 50 MLS/HR Ondansetron HCl (Zofran Inj) 4 mg Q4H PRN IV 08/08/16 11:00 09/07/16 10:59 08/11/16 05:22 4 MG Hydromorphone HCl (Dilaudid Inj) 0.8 mg Q3H PRN IV 08/08/16 11:00 08/22/16 10:59 08/13/16 13:54 0.8 MG Hydromorphone HCl (Dilaudid Inj) 1 mg Q3H PRN IV 08/08/16 11:00 08/22/16 10:59 08/13/16 07:31 1 MG Tiotropium [place] (Spiriva Handihaler Inhaler) 1 puff QAM INH 08/10/16 09:00 09/09/16 08:59 08/14/16 08:38 1 PUFF Mometasone Furoate/ Formoterol Fumar (Dulera) 2 ea QAM INH 08/10/16 09:00 09/09/16 08:59 08/14/16 08:37 2 EA Pantoprazole Sodium 40 mg/ Syringe 10 ml @ 5 mls/min BID@0900,2100 IV 08/11/16 21:00 09/10/16 20:59 08/14/16 08:40 5 MLS/MIN Oxycodone/ Acetaminophen (Percocet 5-325mg Tab) 1 tab Q4H PRN PO 08/13/16 10:45 08/27/16 10:44 08/13/16 23:11 1 TAB Review of Systems Constitutional: No fever, No chills, No weight loss, No fatigue Respiratory: No cough, No sputum, No shortness of breath Cardiovascular: No chest pain, No edema Abdomen: + pain, No nausea, No vomiting, No diarrhea, No constipation, No GI bleeding Hematologic / Lymphatic: No abnormal bleeding/bruising, No swollen lymph nodes Integumentary: No rash, No itch Physical Exam Date Time Temp Pulse Resp B/P (MAP) Pulse Ox O2 Delivery O2 Flow Rate FiO2 08/14/16 07:10 94 Room Air 08/14/16 07:05 36.4 77 16 158/87 (110) 91 Room Air 08/13/16 23:15 Room Air 08/13/16 23:03 36.3 80 18 111/70 (84) 93 Room Air 08/13/16 15:45 Room Air 08/13/16 15:11 36.6 78 16 143/80 (101) 93 Room Air General Appearance: WD/WN, no apparent distress Head: normocephalic, atraumatic ENT: hearing grossly normal Respiratory/Chest: lungs clear, no respiratory distress, no accessory muscle use Cardiovascular: regular rate, rhythm, no edema Abdomen/GI: normal bowel sounds, non tender, soft Extremities/Musculoskelatal: no pedal edema Neurologic/Psych: alert, normal mood/affect, oriented x 3 Skin: warm/dry, no rash Laboratory Results 08/14/16 06:41 Red Blood Count 3.18, Mean Corpuscular Volume 111.9, Mean Corpuscular Hemoglobin 35.8, Mean Corpuscular Hemoglobin Concent 32.0, Mean Platelet Volume 9.7, Neutrophils (%) (Auto) 75.4, Lymphocytes (%) (Auto) 11.2, Monocytes (%) ( Auto) 10.4, Eosinophils (%) (Auto) 2.4, Basophils (%) (Auto) 0.4, Neutrophils # (Auto) 3.75, Lymphocytes # (Auto) 0.56, Monocytes # (Auto) 0.52, Eosinophils # ( Auto) 0.12, Basophils # (Auto) 0.02 08/14/16 06:41 Test 08/14/16 06:41 White Blood Count 4.98 K/uL (4.8-10.8) Red Blood Count 3.18 M/uL (4.2-5.4) Hemoglobin 11.4 g/dL (12.0-16.0) Hematocrit 35.6 % (37-47) Mean Corpuscular Volume 111.9 fL (80-100) Mean Corpuscular Hemoglobin 35.8 pg (25-34) Mean Corpuscular Hemoglobin Concent 32.0 g/dl (32-36) Platelet Count 355 K/uL (130-400) Mean Platelet Volume 9.7 fL (7.4-10.4) Neutrophils (%) (Auto) 75.4 % Lymphocytes (%) (Auto) 11.2 % Monocytes (%) (Auto) 10.4 % Eosinophils (%) (Auto) 2.4 % Basophils (%) (Auto) 0.4 % Neutrophils # (Auto) 3.75 K/uL (1.4-6.5) Lymphocytes # (Auto) 0.56 K/uL (1.2-3.4) Monocytes # (Auto) 0.52 K/uL (0.11-0.59) Eosinophils # (Auto) 0.12 K/uL (0-0.5) Basophils # (Auto) 0.02 K/uL (0-0.2) RDW Standard Deviation 53.0 fL (36.4-46.3) RDW Coefficient of Variation 12.9 % (11.5-14.5) Immature Granulocyte % (Auto) 0.2 % Immature Granulocyte # (Auto) 0.01 K/uL (0.00-0.02) Large Platelets 1+ Macrocytosis PRESENT Anion Gap 8.0 mmol/L (3-11) Est Creatinine Clear Calc Drug Dose 92.0 ml/min Estimated GFR () 117.6 Estimated GFR (Non- 101.5 BUN/Creatinine Ratio 6.7 (10-20) Calcium Level 8.5 mg/dl (8.5-10.1) Total Bilirubin 0.6 mg/dl (0.2-1) Aspartate Amino Transf (AST/SGOT) 11 U/L (15-37) Alanine Aminotransferase (ALT/SGPT) 16 U/L (12-78) Alkaline Phosphatase 69 U/L (45-117) Total Protein 6.1 gm/dl (6.4-8.2) Albumin 2.8 gm/dl (3.4-5.0) Globulin 3.3 gm/dl (2.5-4.0) Albumin/Globulin Ratio 0.8 (0.9-2) Assessment & Plan 1. Adenocarcinoma of the cecum- locally advanced with tumor deposition in to the mesentery, mesentery tumor measuring up to mid 5 cm range by imaging * Patient not surgically resectable at this time due to mesenteric mass adherent to posterior abdominal wall, risking injury to aorta and/or IVC if resection would have been pursued * Patient has been advised by surgery and by undersigned team to consider for neoadjuvant chemotherapy in hopes that she could eventually undergo surgical resection * Specifics in regards to chemotherapy were not discussed with patient at time of consult, patient has follow in office with Dr. Chung tomorrow to discuss neoadjuvant FOLFOX * CEA level at time of diagnosis normal * No distant metastatic disease on preoperative staging CT scans in 07/2016 * Patient has ileo small bowel to transverse colon anastomosis in place to prevent colonic obstruction by tumor * Patient will need port placement for chemotherapy, will be arranged for outpatient 2. Anemia of multiple mechanisms * Iron studies checked prior to surgery were normal * She is now post ostomy placement so she has component of blood loss anemia * Anemia in malignancy potentially * Mild- Hgb in 11 g/dL range * Continue to monitor 3. Essential Thrombocythemia * Hydrea on hold since surgery * Agree to continue to hold at this time as PLT count is in normal range and patient planning to start chemotherapy in near future, would be too toxic to have Hydrea continued during chemotherapy Thanks for the consult. Dr. Chung is attending medical oncologist on the case. I have discussed the patient's case, impression and plan with Zoraida Patel. Her note reflects my findings and plan. She was discharged before I could see her in the hospital but I am planning to see her in the office on the following day. In summary, she is a known case of essential thrombocythemia for the last 10 years, on hydroxyurea, now newly diagnosed cecal adenocarcinoma, unfortunately it is not resectable at this time, planning for neoadjuvant chemotherapy, she will need a port placement for upcoming chemotherapy. Will hold hydroxyurea at this time as I am expecting bone marrow suppression with chemotherapy treatment. Dr. Fermín Chung Hem/Onc (This note was completed using the dictation program Fluency Direct. As such, there may be misspellings, word substitutions, or other variations that should not change the essence of the clinical content of this encounter note. If there is need for further clarification, please direct questions to the provider listed above.)
--- NOTE | 2016-08-16 11:36 | Discharge Summary ---
Discharge Summary Dates Admission Date / Time: August 08, 2016 at 10:55 Discharge Date: Aug 14, 2016 Dispostion / Condition Discharge Disposition: Home Condition at Discharge: Good Principal Diagnosis (1) Colon cancer Consultations / Procedures Consultations: Medical Oncology Procedures: Exploratory laparotomy and small bowel to transverse colon side to side anastomosis (bypass cecal mass which was unresectable) Pending Studies / Follow-Up None Medication Reconciliation New Medications: Docusate Sodium (Colace) 100 Mg Cap 1 CAP PO BID for 30 Days, #60 CAP 2 Refills Oxycodone/Acetaminophen 5MG/325MG (Percocet 5MG/325MG) Tab 1 TABLET PO Q6H PRN for Pain for 4 Days, #14 TAB Continued Medications: Albuterol (Proair Hfa) Aers 2 PUFFS INH PRN, 0 Refills Aspirin Enteric Coated (Ecotrin Or Generic *) 81 Mg Ectab 81 MG PO HS PER PT TO STOP 7 DAYS BEFORE PER SURGEON Diazepam (Valium) 5 Mg Tab 5 MG PO PRN, TAB Estrogens, Conjugated Vag (Premarin Vag *) Cr 1 DOSE TOP PRN Hydroxyurea (Hydrea Cap) 500 Mg Cap 1000 MG PO HS, CAP PT WILL CHECK WITH RX'ING DR Ibuprofen (Advil) 200 Mg Tab 400 MG PO PRN, TAB Mometasone Furoate-Formoterol (Dulera 200/5 Mcg) 1 Aer Aer 2 PUFFS INH QAM for 30 Days, #1 GM 3 Refills Paroxetine (Paxil) 20 Mg Tab 30 MG PO QAM, 0 Refills Tiotropium [place] Monohydrate (Spiriva Respimat) 2.5 Mcg/Act Spr 1 DOSE INH INH Triamcinolone Acet (Kenelog Dental Paste 0.1% ) Pste 1 DOSE TOP PRN Triamcinolone Acetonide (Topic (Triamcinolone Acet 0.025%) 0.025 % Oin 1 APPLN TOP PRN, #15 GM 1 Refill [otc eye gtts] () 1 DROP OPB QAM Admission HPI Per the Admitting provider: Guadalupe is a 61 year-old female who was referred to Dr. Kaufman for right cecal mass and mesenteric mass found on colonoscopy and PET scan respectively. She was schedule for exploratory laparotomy, right hemicolectomy, excision of mesenteric mass and possible ostomy. Hospital Course (1) Colon cancer Patient was taken to operating room for ex lap, right hemicolectomy, and excision of mesenteric mass by Dr. Kaufman. Unfortunately the tumor was adhered to the posterior abdominal wall and there was concern for injury to IVC or ureter therefore resection was unamenable and a small bowel to transverse colon bypass side to side anastomosis was performed. Patient tolerated procedure well and was transferred to PACU and then Med/Surg floor in stable condition. Post op orders included: Pleitez catheter, IV fluids, IV antibiotics which were Cipro and Flagyl, IV pain medication in the form of Dilaudid, IV Zofran, NGT to low intermittent suction, and NPO. POD # 1 patient was doing well. NGT had 400 mls in 24 hours. Pain controlled. POD # 2 patient improved still did not have any bowel function and moderate amount of NGT output. POD # 3 NGT was discontinued and kept NPO. POD # 4 clear liquids were started. POD # 5 diet advanced to full liquids and IV fluids were discontinued. A medical oncologist consult was placed. Patient was discharged home on POD # 6 in stable condition since she was ambulating, urinating without difficulty, had positive bowel function, and pain was controlled. Overall hospital course was uneventful. She had a follow-up appointment with Dr. Chung on day of discharge. She is expected to get neoadjuvant chemotherapy in the hopes to shrink the tumor and future excision. Discharge Instructions as given to patient Copies To Primary Care Provider: rPetty Norris D.O.. Problem Qualifiers (1) Colon cancer: Colon location: ascending Qualified Codes: C18.2 - Malignant neoplasm of ascending colon
== END 2016-08-14 13:44 | disposition home or self-care (01) | DRG 331 ==
LOC: ENRESERVTM → ENRESERVDT → C.ACU 06:25 → C.MSN 10:55
PROVIDERS: ADMIT Surgery; ATTEND Surgery
PROC: 0D1B0ZL Bypass Ileum to Transverse Colon, Open Approach (ICD-10-PCS; principal; 2016-08-08 08:45)
DX: C18.0 Malignant neoplasm of cecum (principal); R19.03 Right lower quadrant abdominal swelling, mass and lump; J44.9 Chronic obstructive pulmonary disease, unspecified; J45.909 Unspecified asthma, uncomplicated; D47.3 Essential (hemorrhagic) thrombocythemia; L71.9 Rosacea, unspecified; F41.9 Anxiety disorder, unspecified; F43.21 Adjustment disorder with depressed mood; Z79.899 Other long term (current) drug therapy; Z79.82 Long term (current) use of aspirin; Z87.891 Personal history of nicotine dependence; Z80.3 Family history of malignant neoplasm of breast; Z80.42 Family history of malignant neoplasm of prostate; Z80.51 Family history of malignant neoplasm of kidney

== ENCOUNTER 2017-05-14 17:32 | Emergency (ER) | payer OTHER ==
[~2017-05-14] VITALS: Ht 154.9 cm; Wt 63.9 kg
[~2017-05-14 17:32] MED LIST changes: -CEFAZOLIN 1000MG/55 ML D5W IV SCH; -CEFAZOLIN 2000 MG/60 ML D5W IV SCH; +DOCU-94 PO; +EYE OPB; -LACTATED RINGER'S 1000ML 1,000 ML IV SCH; -LACTATED RINGER'S 1000ML 500 ML IV ONE
[2017-05-14 17:46] VITALS: TEMP 36.7; Ht 154.9 cm; Wt 63.9 kg
[2017-05-14] MEDS ORDERED: SODIUM CHLORIDE 0.9% 1000ML 1,000 ML IV STA (18:09)
--- NOTE | 2017-05-14 18:12 | EMERGENCY ROOM VISIT NOTE ---
History Report prepared by Khadijah: Kolby Lawrence Under the Supervision of: Dr. Jairo Moyer M.D. First contact with patient: 18:07 Chief Complaint: ABDOMINAL PAIN Stated Complaint: LT SIDE PAIN Nursing Triage Summary: LLQ abdominal pain for 5 days History of Present Illness The patient is a 62 year old female who presents to the Emergency Room with complaints of intermittent abdominal pain which began 5 days ago. The patient notes that she was referred to the ED for her abdominal pain by her PCP who suspects that she may have diverticulitis. The patient reports that he abdominal pain is currently resolved, but is worsened by movement or pressing on her abdomen. She notes the pain is in the left lower quadrant. The patient states that she has a history of colon cancer, but notes that she is not currently being treated. She reports that she received her last dose of chemotherapy in February, and underwent abdominal surgery on March 23. The patient reports that she was also being treated for a neuroendocrine tumor. The patient denies any fevers, nausea, vomiting, diarrhea, blood in urine, blood in stools, dark black stools, history of diverticulitis, or any known drug allergies. Source of History: patient Onset: 5 days ago. Position: abdomen Timing: intermittent Modifying Factors (Worsening): movement, other (pressure ) Associated Symptoms: No fevers, No nausea, No vomiting, No melena Note: Denies: Blood in urine, dark black stools, history of DVT, or any known drug allergies Review of Systems See HPI for pertinent positives and negatives. A total of ten systems were reviewed and were otherwise negative. Past Medical & Surgical Medical Problems: (1) Colon cancer (2) COPD (chronic obstructive pulmonary disease) (3) Nosebleed (4) Skin problem Family History FH: cancer FH: lung cancer Kidney disease Kidney stones Social History Smoking Status: Never Smoker Marital Status: Housing Status: lives with family Occupation Status: employed Current/Historical Medications Scheduled Albuterol (Proair Hfa), 2 PUFFS INH PRN Diazepam (Valium), 5 MG PO PRN Hydroxyurea (Hydrea Cap), 500 MG PO BID Paroxetine (Paxil), 30 MG PO QAM Triamcinolone Acet (Kenelog Dental Paste 0.1% ), 1 DOSE TOP PRN Scheduled PRN Lorazepam (Lorazepam), 0.5 MG PO DAILY PRN for PRN Allergies Coded Allergies: No Known Allergies (Verified , 05/14/17) Physical Exam Vital Signs Date Time Temp Pulse Resp B/P (MAP) Pulse Ox O2 Delivery O2 Flow Rate FiO2 05/14/17 21:54 60 18 134/86 97 05/14/17 20:07 60 18 148/79 98 Room Air 05/14/17 18:28 58 18 139/93 97 Room Air 05/14/17 17:46 36.7 62 16 159/78 97 Room Air Physical Exam Physical Exam GENERAL: She is oriented to person, place, and time. She appears well- developed and well-nourished. She does not appear distressed. ____ HENT: Exam performed. Head: Normocephalic and atraumatic. Right Ear: External ear normal. No mastoid tenderness. Left Ear: External ear normal. No mastoid tenderness. Mouth/Throat: The oropharynx is clear and moist. No trismus in the jaw. No dental abscesses or uvula swelling. No oropharyngeal exudate or tonsillar abscesses. ____ EYES: Conjunctivae and EOM are normal. Pupils are equal, round, and reactive to light. Right eye exhibits no discharge. Left eye exhibits no discharge. No scleral icterus. ____ NECK: Normal range of motion. Neck supple. No JVD present. No spinous process tenderness present. No carotid bruit present. No rigidity. No tracheal deviation and normal range of motion present. No Brudzinski's sign and no Kernig 's sign noted. ____ CV: Normal rate, regular rhythm, normal heart sounds and intact distal pulses. There is no peripheral edema. Palpable radial pulses bue. ____ PULM/CHEST: Effort normal and breath sounds normal. No respiratory distress. No stridor. She has no wheezes. She has no rales. Chest Wall: She exhibits no tenderness. ____ ABD: The abdomen is soft. Bowel sounds are normal. She has no distension. No mass is present. Pain on palpation of left lower quadrant. There is no rebound, no guarding, no Sexton's sign and no tenderness at McBurney's point. Rovsig negative MUSC/SKEL: Normal range of motion. There is no peripheral edema, tenderness or deformity. LYMPH: No cervical adenopathy. ____ NEURO: She is alert and oriented to person, place, and time. She has normal strength. No cranial nerve deficit or sensory deficit. Coordination and gait normal. GCS eye subscore is 4. GCS verbal subscore is 5. GCS motor subscore is 6. Cerebellar tests wnl. ____ SKIN: Skin is warm and dry. she is not diaphoretic. ____ PSYCH: She has a normal mood and affect. Her behavior is normal. Judgment and thought content normal. ____ Medical Decision & Procedures ER Provider Diagnostic Interpretation: Radiology results as stated below per my review and radiologist interpretation: ABD/PELVIS IV CONTRAST ONLY CT DOSE: 247.73 mGy.cm HISTORY: Pain LLQ pain r/o diverticulitis hx of colon CA recent colectomy TECHNIQUE: Multiaxial CT images of the abdomen and pelvis were performed following the use of intravenous contrast. A dose lowering technique was utilized adhering to the principles of ALARA. COMPARISON STUDY: None. FINDINGS: Small hiatal hernia. Lung bases are clear. Liver spleen and pancreas enhance uniformly. Kidneys negative for hydronephrosis. There are findings of a midline incision. There appears to been a partial segmental colonic resection in the midline. The anastomotic line appears patent. There is no evidence of bowel distention. There are no obstructive characteristics. Sigmoid colon is unremarkable. Bladder is midline. There is no evidence for abnormal mass collection or free air. There is no evidence for pneumatosis. There is perhaps a very minimal reactive ileus. Is considered nonobstructive. IMPRESSION: 1. Somewhat limited exam in terms of diagnostic accuracy due to the absence of prior studies. 2. Operative evidence for a partial colonic resection. 3. No evidence for abscess collection or obstruction. 4. Minimal/mild reactive nonobstructive ileus. The above report was generated using voice recognition software. It may contain grammatical, syntax or spelling errors. Electronically signed by: David Bass M.D. 05/14/2017 7:50 PM Dictated Date/Time: 05/14/2017 7:47 PM GALLBLADDER-ABD LIMITED CLINICAL HISTORY: r/o blu pain. Nausea. TECHNIQUE: Ultrasound COMPARISON STUDY: None FINDINGS: Normal gallbladder. Common bile duct 4 mm. Liver is uniform throughout. Pancreas and right kidney are unremarkable. No evidence for hydronephrosis. IMPRESSION: Normal study The above report was generated using voice recognition software. It may contain grammatical, syntax or spelling errors. Electronically signed by: David Bass M.D. 05/14/2017 9:06 PM Dictated Date/Time: 05/14/2017 9:05 PM Laboratory Results 05/14/17 18:45 Red Blood Count 4.12, Mean Corpuscular Volume 95.9, Mean Corpuscular Hemoglobin 32.0, Mean Corpuscular Hemoglobin Concent 33.4, Mean Platelet Volume 9.2, Neutrophils (%) (Auto) 69.5, Lymphocytes (%) (Auto) 18.3, Monocytes (%) (Auto) 9.9, Eosinophils (%) (Auto) 1.5, Basophils (%) (Auto) 0.6, Neutrophils # (Auto) 3.73, Lymphocytes # (Auto) 0.98, Monocytes # (Auto) 0.53, Eosinophils # (Auto) 0.08, Basophils # (Auto) 0.03 05/14/17 18:45 Test 05/14/17 18:25 05/14/17 18:45 Urine Color YELLOW Urine Appearance CLEAR (CLEAR) Urine pH 6.5 (4.5-7.5) Urine Specific [place] 1.007 (1.000-1.030) Urine Protein NEG (NEG) Urine Glucose (UA) NEG (NEG) Urine Ketones NEG (NEG) Urine Occult Blood NEG (NEG) Urine Nitrite NEG (NEG) Urine Bilirubin NEG (NEG) Urine Urobilinogen NEG (NEG) Urine Leukocyte Esterase NEG (NEG) White Blood Count 5.36 K/uL (4.8-10.8) Red Blood Count 4.12 M/uL (4.2-5.4) Hemoglobin 13.2 g/dL (12.0-16.0) Hematocrit 39.5 % (37-47) Mean Corpuscular Volume 95.9 fL (80-100) Mean Corpuscular Hemoglobin 32.0 pg (25-34) Mean Corpuscular Hemoglobin Concent 33.4 g/dl (32-36) Platelet Count 440 K/uL (130-400) Mean Platelet Volume 9.2 fL (7.4-10.4) Neutrophils (%) (Auto) 69.5 % Lymphocytes (%) (Auto) 18.3 % Monocytes (%) (Auto) 9.9 % Eosinophils (%) (Auto) 1.5 % Basophils (%) (Auto) 0.6 % Neutrophils # (Auto) 3.73 K/uL (1.4-6.5) Lymphocytes # (Auto) 0.98 K/uL (1.2-3.4) Monocytes # (Auto) 0.53 K/uL (0.11-0.59) Eosinophils # (Auto) 0.08 K/uL (0-0.5) Basophils # (Auto) 0.03 K/uL (0-0.2) RDW Standard Deviation 62.2 fL (36.4-46.3) RDW Coefficient of Variation 18.2 % (11.5-14.5) Immature Granulocyte % (Auto) 0.2 % Immature Granulocyte # (Auto) 0.01 K/uL (0.00-0.02) Anion Gap 6.0 mmol/L (3-11) Est Creatinine Clear Calc Drug Dose 71.1 ml/min Estimated GFR () 105.5 Estimated GFR (Non- 91.0 BUN/Creatinine Ratio 17.6 (10-20) Calcium Level 8.9 mg/dl (8.5-10.1) Total Bilirubin 0.4 mg/dl (0.2-1) Aspartate Amino Transf (AST/SGOT) 53 U/L (15-37) Alanine Aminotransferase (ALT/SGPT) 100 U/L (12-78) Alkaline Phosphatase 275 U/L (45-117) Total Protein 7.0 gm/dl (6.4-8.2) Albumin 3.6 gm/dl (3.4-5.0) Globulin 3.4 gm/dl (2.5-4.0) Albumin/Globulin Ratio 1.1 (0.9-2) Lipase 120 U/L (73-393) Laboratory results reviewed by me Medications Administered Medications (Trade) Dose Ordered Sig/Yolanda Route Start Time Stop Time Status Last Admin Dose Admin Sodium Chloride 1,000 ml @ 125 mls/hr Q8H STAT IV 05/14/17 18:09 05/14/17 22:24 DC 05/14/17 18:41 125 MLS/HR ED Course 180: The patient was evaluated in room A3. A complete history and physical exam was performed. 1808: Ordered Sodium Chloride 1000 ml @ 125 mls/hr IV 2199: Ordered Docusate Sodium 100mg PO 1954: I re-evaluated the patient. Her vital signs are stable with labs within normal limits with exception of elevated liver enzymes and alkaline phosphatase levels. The patient continues to have pain in her LLQ and is now experiencing pain in her RUQ. McBurney's and Sexton's sign negative. CT negative for diverticulitis or obstruction. Will obtain ultrasound to rule out cholecystitis. 2153: Vital signs stable. Ultrasound negative for cholecystitis, common bile duct within normal limits. DISCHARGE - Plan of care discussed with patient and questions answered. The patient was given both verbal and printed discharge instructions. The patient verbalized understanding and ability to comply. The patient is to seek outpatient follow up as noted in the discharge instructions. The patient verbalized understanding and ability to comply. The patient is discharged in stable condition. The patient was instructed to return for worsening symptoms. Medical Decision 1954: I re-evaluated the patient. Her vital signs are stable with labs within normal limits with exception of elevated liver enzymes and alkaline phosphatase levels. The patient continues to have pain in her LLQ and is now experiencing pain in her RUQ. McBurney's and Sexton's sign negative. CT negative for diverticulitis or obstruction. Will obtain ultrasound to rule out cholecystitis. 2153: Vital signs stable. Ultrasound negative for cholecystitis, common bile duct within normal limits. DISCHARGE - Plan of care discussed with patient and questions answered. The patient was given both verbal and printed discharge instructions. The patient verbalized understanding and ability to comply. The patient is to seek outpatient follow up as noted in the discharge instructions. The patient verbalized understanding and ability to comply. The patient is discharged in stable condition. The patient was instructed to return for worsening symptoms. Medication Reconcilliation Current Medication List: was personally reviewed by me Blood Pressure Screening Patient's blood pressure: Normal blood pressure Impression Primary Impression: Abdominal pain Scribe Attestation The scribe's documentation has been prepared under my direction and personally reviewed by me in its entirety. I confirm that the note above accurately reflects all work, treatment, procedures, and medical decision making performed by me. The chart was completed utilizing [employer] voice recognition software. Grammatical errors, random word insertions, pronoun errors, and incomplete sentences are an occasional consequence of this system due to software limitations, ambient noise, and hardware issues. Any formal questions or concerns about the content, text, or information contained within the body of this dictation should be directly addressed to the physician for clarification. Departure Information Dispostion Home / Self-Care Referrals No Doctor, Assigned (PCP) Forms Call Back Authorization, HOME CARE DOCUMENTATION FORM, IMPORTANT VISIT INFORMATION Patient Instructions Abdominal Pain - [facility], [facility]
[2017-05-14] MEDS ORDERED: OPTIRAY 320 IV PRN (18:15)
[2017-05-14] MEDS ORDERED: ATV5 PO (18:49)
[2017-05-14 19:00] LABS: BASO % 0.6 %; BASO ABS # 0.03 K/uL (0-0.2); EOS % 1.5 %; EOS ABS # 0.08 K/uL (0-0.5); HEMATOCRIT 39.5 % (37-47); HEMOGLOBIN 13.2 g/dL (12.0-16.0); IG# 0.01 K/uL (0.00-0.02); LYMPH % 18.3 %; LYMPH ABS # 0.98 K/uL (1.2-3.4); MEAN CELL VOLUME 95.9 fL (80-100); MEAN CORPUSCULAR HGB CONC 33.4 g/dl (32-36); MEAN PLATELET VOLUME 9.2 fL (7.4-10.4); MONO % 9.9 %; MONO ABS # 0.53 K/uL (0.11-0.59); NEUT % 69.5 %; NEUT ABS # 3.73 K/uL (1.4-6.5); PLATELET COUNT 440 K/uL (130-400); RED CELL DISTRIBUTION WIDTH CV 18.2 % (11.5-14.5); RED CELL DISTRIBUTION WIDTH SD 62.2 fL (36.4-46.3); WHITE BLOOD COUNT 5.36 K/uL (4.8-10.8)
[2017-05-14 19:15] LABS: ALBUMIN 3.6 gm/dl (3.4-5.0); CALCIUM 8.9 mg/dl (8.5-10.1); CREATININE 0.72 mg/dl (0.60-1.20); POTASSIUM 3.9 mmol/L (3.5-5.1)
--- NOTE | 2017-05-14 19:51 | DIAGNOSTIC IMAGING REPORT ---
ABD/PELVIS IV CONTRAST ONLY CT DOSE: 247.73 mGy.cm HISTORY: Pain LLQ pain r/o diverticulitis hx of colon CA recent colectomy TECHNIQUE: Multiaxial CT images of the abdomen and pelvis were performed following the use of intravenous contrast. A dose lowering technique was utilized adhering to the principles of ALARA. COMPARISON STUDY: None. FINDINGS: Small hiatal hernia. Lung bases are clear. Liver spleen and pancreas enhance uniformly. Kidneys negative for hydronephrosis. There are findings of a midline incision. There appears to been a partial segmental colonic resection in the midline. The anastomotic line appears patent. There is no evidence of bowel distention. There are no obstructive characteristics. Sigmoid colon is unremarkable. Bladder is midline. There is no evidence for abnormal mass collection or free air. There is no evidence for pneumatosis. There is perhaps a very minimal reactive ileus. Is considered nonobstructive. IMPRESSION: 1. Somewhat limited exam in terms of diagnostic accuracy due to the absence of prior studies. 2. Operative evidence for a partial colonic resection. 3. No evidence for abscess collection or obstruction. 4. Minimal/mild reactive nonobstructive ileus. The above report was generated using voice recognition software. It may contain grammatical, syntax or spelling errors. Electronically signed by: David Bass M.D. 05/14/2017 7:50 PM Dictated Date/Time: 05/14/2017 7:47 PM
--- NOTE | 2017-05-14 21:07 | DIAGNOSTIC IMAGING REPORT ---
GALLBLADDER-ABD LIMITED CLINICAL HISTORY: r/o blu pain. Nausea. TECHNIQUE: Ultrasound COMPARISON STUDY: None FINDINGS: Normal gallbladder. Common bile duct 4 mm. Liver is uniform throughout. Pancreas and right kidney are unremarkable. No evidence for hydronephrosis. IMPRESSION: Normal study The above report was generated using voice recognition software. It may contain grammatical, syntax or spelling errors. Electronically signed by: David Bass M.D. 05/14/2017 9:06 PM Dictated Date/Time: 05/14/2017 9:05 PM
[2017-05-14 21:54] VITALS: BP 134/86; PULSE 60; O2SAT 97
[2017-05-14] MEDS ORDERED: DOCUSATE SODIUM 100 MG CAP PO ONE (22:00)
== END 2017-05-14 21:54 | disposition home or self-care (01) ==
LOC: C.EDB 17:33 → C.EDA 21:54
DX: R10.9 Unspecified abdominal pain (principal); J44.9 Chronic obstructive pulmonary disease, unspecified

== ENCOUNTER 2018-04-24 16:42 | Inpatient (IN) ==
[2018-04-24] MEDS ORDERED: FAMOTIDINE 20MG/5ML IV PUSH IV STA (17:13)
[2018-04-24] MEDS ORDERED: ONDANSETRON INJ 2 MG/ML 2 ML VIAL IV STA (17:13)
--- NOTE | 2018-04-24 18:10 | XRay Report ---
XR chest 1V portable CLINICAL HISTORY: Chest Pain pain COMPARISON STUDY: No previous studies for comparison. FINDINGS: Central catheter in superior vena cava. Diaphragms smooth. Lungs are clear. No significant cardiac enlargement. IMPRESSION: Negative chest. The above report was generated using voice recognition software. It may contain grammatical, syntax or spelling errors. Electronically signed by: David Bass M.D. 04/24/2018 6:08 PM
[2018-04-24 19:27] LABS: Basophils # (auto) 0.04 K/uL (0-0.2); Basophils % (auto) 0.8 %; Eosinophils # (auto) 0.11 K/uL (0-0.5); Eosinophils % (auto) 2.3 %; Hematocrit (blood only) 34.9 % (37-47); Hemoglobin 11.5 g/dL (12.0-16.0); Immature Granulocytes # (auto) 0.01 K/uL (0.00-0.02); Immature Granulocytes % (auto) 0.2 %; Lymphocytes # (auto) 0.63 K/uL (1.2-3.4); Lymphocytes % (auto) 13.3 %; Mean Corpuscular Volume 118.3 fL (80-100); Mean Platelet Volume 9.4 fL (7.4-10.4); Monocytes % (auto) 10.6 %; Neutrophils # (auto) 3.44 K/uL (1.4-6.5); Neutrophils % (auto) 72.8 %; Platelet Count 395 K/uL (130-400); RDW Coefficient of Variation 13.4 % (11.5-14.5); RDW Standard Deviation 57.7 fL (36.4-46.3); Red Blood Count 2.95 M/uL (4.2-5.4); White Blood Count 4.73 K/uL (4.8-10.8)
[2018-04-24 19:36] LABS: Prothrombin Time 10.2 Seconds (9.0-12.0)
[2018-04-24 19:40] LABS: Appearance Urine Clear (Clear); Bilirubin Urine Negative (Negative); Color Urine Yellow; Glucose Urine UA Negative (Negative); Ketones Urine Negative (Negative); Leukocyte Esterase Urine Negative (Negative); Nitrite Urine Negative (Negative); Protein Urine Negative (Negative); Specific Gravity Urine 1.015 (1.000-1.030); Urobilinogen Urine Negative (Negative)
[2018-04-24 19:45] LABS: Alanine Aminotransferase 25 U/L (12-78); Albumin Level 3.5 gm/dl (3.4-5.0); Aspartate Aminotransferase 29 U/L (15-37); BUN Creatinine Ratio 19.6 (10-20); Bilirubin Direct 0.1 mg/dl (0-0.2); Blood Urea Nitrogen 23 mg/dl (7-18); Calcium 8.2 mg/dl (8.5-10.1); Carbon Dioxide 25 mmol/L (21-32); Chloride 106 mmol/L (98-107); Creatinine Clr Calc Pharmacy 43.9 ml/min; Est GFR (African American) 57.1; Est GFR (Non-African American) 49.2; Glucose 84 mg/dl (70-99); Magnesium 2.2 mg/dl (1.8-2.4); Potassium 3.9 mmol/L (3.5-5.1); Sodium 136 mmol/L (136-145)
[2018-04-24 19:50] LABS: Alkaline Phosphatase 115 U/L (45-117); Bilirubin,Total 0.4 mg/dl (0.2-1); Globulin 3.6 gm/dl (2.5-4.0); NT Pro B Type Natriuretic Pept 115 pg/ml (0-900); Total Protein 7.1 gm/dl (6.4-8.2); Troponin I < 0.015 ng/ml (0-0.045)
[2018-04-24 19:55] LABS: Macrocytosis Present
[2018-04-24] MEDS ORDERED: IOVERSOL 100ml IV PRN (20:19)
[2018-04-24 20:31] LABS: Lyme Ab IgG w/WB Rflx Negative (Negative); Lyme Ab IgM w/WB Rflx Negative (Negative)
--- NOTE | 2018-04-24 21:03 | CT Scan Report ---
CT OF THE ABDOMEN AND PELVIS WITH CONTRAST CLINICAL HISTORY: abdominal pain, black stool. History of colon cancer. COMPARISON STUDY: CT of the abdomen and pelvis May 14, 2017. Right upper quadrant ultrasound May 14, 2017. TECHNIQUE: Following IV administration of 93 mL of Optiray-320, axial images of the abdomen and pelvi s were obtained from the lung bases to the proximal femurs. Images were reviewed in the axial, sagitt al, and coronal planes. IV contrast was administered without complication. Automated exposure contro l was utilized for the study. A dose lowering technique was utilized adhering to the principles of A FRANKI. CT DOSE: 311.98 mGy.cm FINDINGS: There is a possible small segmental pulmonary embolus within a right lower lobe pulmonary a rtery on image 11 of 376. No pneumatosis, free air or portal venous gas is present. The liver, spleen , adrenal glands, left kidney and pancreas are normal. The patient is status post right hemicolectomy . There has been interval development of severe right hydroureteronephrosis with delayed right nephro gram due to obstruction of the right ureter by a conglomerate retroperitoneal mass that measures appr oximately 6.3 x 4.3 cm. This was not present on CT of May 14, 2017. This encases the aortic bifurcat ion. There is possible thrombus within the IVC at this level. There is no evidence for a bowel obstru ction. There are prominent collaterals along the bladder wall. There are also suspected prominent epi dural veins within the lumbar spine. No suspicious osseous lesions are present. There is no pneumatos is, free air or portal venous gas. IMPRESSION: 1. Interval development of a conglomerate 6.3 x 4.3 cm retroperitoneal mass since CT of May 14, 2017 . This encases the aortic bifurcation and the IVC with suspected extensive deep thrombus within the I VC and right common iliac vein. This results in narrowing of the right ureter with resultant severe r ight hydroureteronephrosis. Given the clinical history, metastatic disease is favored. 2. Suspected small segmental pulmonary embolus within the right lower lobe. A PE protocol CT of the c hest be obtained. 3. No bowel obstruction. Status post right hemicolectomy. 4. Suspected prominent epidural collaterals within the lumbar spine. Epidural tumor could appear jamar lar but is considered less likely. Electronically signed by: Yuri Ojeda M.D. 04/24/2018 9:01 PM
[2018-04-24] MEDS ORDERED: Heparin IV Standard *NO* Bolus IV ONE (22:00)
[2018-04-24] MEDS ORDERED: OPTIRAY 320 125ml IV PRN (22:39)
[2018-04-24] MEDS ORDERED: HEPARIN STANDARD DEXTROSE 25,000 UNITS/500 ML IV SCH (22:44)
--- NOTE | 2018-04-24 22:59 | CT Scan Report ---
CT ANGIOGRAPHY OF THE CHEST, PULMONARY EMBOLUS PROTOCOL CLINICAL HISTORY: Possible pulmonary embolus. COMPARISON STUDY: Chest CT May 13, 2014. TECHNIQUE: Following IV administration of 98 mL of Optiray-320, helical axial images of the chest wer e obtained utilizing the pulmonary embolus protocol. Maximal intensity projections and sagittal and coronal reformats were viewed on an independent 3D workstation. IV contrast was administered without complication. Automated exposure control was utilized for the study. A dose lowering technique was utilized adhering to the principles of ALARA. CT DOSE: 261.28 mGy.cm FINDINGS: There is a small segmental pulmonary embolus within the posterior basilar segment of the r ight lower lobe shown best on axial image 105 of 306. No additional pulmonary emboli are identified i dentified. A right internal jugular [id number] is in place. There is no thoracic or dissection. No enlarged thoracic lymph nodes are present. There is moderate emphysema. Central airways are patent. There is no consolidation to suggest pneumonia. No suspicious osseous lesions are noted. Visualized p ortions of the upper abdomen again demonstrate severe right hydronephrosis which is better depicted o n the abdominal CT performed earlier today. There is a delayed right nephrogram. IMPRESSION: 1. Small segmental pulmonary embolus within the posterior basilar segment of the right lower lobe. 2. Moderate emphysema. 3. Severe right hydronephrosis with delayed right nephrogram better depicted on the CT of the abdomen and pelvis performed earlier today. Electronically signed by: Yuri Ojeda M.D. 04/24/2018 10:57 PM
[2018-04-24] MEDS ORDERED: HEPARIN SOD (PORCINE) 1000 UNIT/ML 10 ML VIAL IV ONE (23:00)
[2018-04-24] MEDS ORDERED: NON-FORMULARY MEDICATION (Albuterol Sulfate 2 PUFFS) INH PRN (23:29)
[2018-04-24] MEDS ORDERED: BISMUTH SUBSALICYLATE SUSP PO PRN (23:29)
--- NOTE | 2018-04-25 00:19 | Emergency Department Note ---
Entered by Laura Brown acting as a scribe for Andres Ames MD History of Present Illness General Chief complaint: GI Assessment Stated complaint: DARK STOOLS, STOMACH PAIN, SWELLING TO LEGS Time Seen by Provider: 04/24/18 16:55 Source: patient History of Present Illness Onset (ago): day(s) 1 Location: abdomen (Dark stool) Pain Consistency: + other (Persistent ) Maximum Pain Intensity: 4 Quality: + other (Dark stool) Relieved By: not by medication (Pepto-Bismol) Associated symptoms: + nausea/vomiting (Positive nausea. Negative vomiting.) and + other (Dark stool, leg numbness and swelling.); no cough and no fever/ chills Treatments prior to arrival: other (TUMS, Pepto-Bismol) The patient is a 63 year old female who presents to the Emergency Room with complaints of persistent dark stool starting 1 day ago. The patient reports that she has been experiencing dark brown/blackish stool. She states that she has been experiencing heart burn and indigestion and because of it has been taking TUMS and Pepto-Bismol. She adds that she did not experience dark stool until after she took the Pepto-Bismol. She notes that there have not been any big changes in her diet and that this heart burn is abnormal. The patient reports that she has been nauseous and that she has been experiencing intermittent leg numbness and swelling for the past 4 days. She states that she had colon cancer which was treated with chemotherapy and past surgeries. She denies fevers, chills, cough, vomiting. Home Medications Home Medications Medication Instructions Recorded Confirmed Type Dulera 2 puff INHALATION BID 04/24/18 04/24/18 History albuterol sulfate [ProAir HFA] 2 puff INHALATION Q6H PRN 04/24/18 04/24/18 History bismuth subsalicylate 524 mg PO QID PRN 04/24/18 04/24/18 History [Pepto-Bismol] calcium carbonate [Tums] 300 mg PO DIRECTED PRN 04/24/18 04/24/18 History hydroxyurea 500 mg PO BID 04/24/18 04/24/18 History lorazepam 0.5 mg PO BID PRN 04/24/18 04/24/18 History paroxetine HCl 30 mg PO QAM 04/24/18 04/24/18 History tiotropium bromide [Spiriva 2 puff INHALATION QAM 04/24/18 04/24/18 History Respimat] Allergies Allergy/AdvReac Type Severity Reaction Status Date / Time No Known Allergies Allergy Verified 04/24/18 18:04 Past Med/Surg History Medical History Thrombocytosis Colon cancer (Chronic) COPD (chronic obstructive pulmonary disease) Surgical History History of partial surgical removal of colon Social History marital status: Current Living Situation: Spouse Other Information That Helps Us Care for You: No Feels Safe at Home: Yes Safety Concerns: Feels Safe At This Time Smoking Status: Former smoker Do You Dip or Chew Tobacco: No Second Hand Exposure: No Tobacco Cessation Education Requested by Patient: No Hx Alcohol Use: Yes Alcohol type: beer Alcohol Intake Frequency: a few times a month Hx Substance Use: No Beliefs That Will Affect Care: None Communication Ability: Effective Review of Systems See HPI for pertinent positives & negatives. and A total of 10 systems reviewed and were otherwise negative Physical Exam Vital Signs Vital Signs - 24 hr 04/24/18 21:30 04/24/18 22:00 04/24/18 23:35 Temperature Temperature Source Pulse Rate 67 71 Pulse Rate [Apical] 64 Pulse Rate [Right Finger] Pulse Rhythm [Apical] Regular Pulse Rhythm [Right Finger] Pulse Strength [Apical] Normal Pulse Strength [Right Finger] Respiratory Rate 15 14 16 Respiratory Effort / Characteristics Non-Labored Spontaneous Respiratory Depth Normal Respiratory Pattern Regular Blood Pressure 165/102 H 172/99 H Blood Pressure [Left Arm] Blood Pressure [Right Arm] 171/84 H Blood Pressure Mean 123 123 Blood Pressure Mean [Left Arm] Blood Pressure Mean [Right Arm] 113 Blood Pressure Position [Left Arm] Blood Pressure Position [Right Arm] Lying Pulse Oximetry 96 98 98 Oxygen Delivery Method Room Air Room Air Room Air 04/25/18 00:42 04/25/18 01:12 04/25/18 03:26 Temperature 36.4 C L 36.7 C Temperature Source Oral Oral Pulse Rate 67 Pulse Rate [Apical] 68 66 Pulse Rate [Right Finger] Pulse Rhythm [Apical] Pulse Rhythm [Right Finger] Pulse Strength [Apical] Normal Pulse Strength [Right Finger] Respiratory Rate 16 18 16 Respiratory Effort / Characteristics Non-Labored Spontaneous Respiratory Depth Normal Respiratory Pattern Regular Blood Pressure 149/65 H Blood Pressure [Left Arm] 166/80 H Blood Pressure [Right Arm] 138/83 Blood Pressure Mean Blood Pressure Mean [Left Arm] 108 Blood Pressure Mean [Right Arm] 101 Blood Pressure Position [Left Arm] Lying Blood Pressure Position [Right Arm] Pulse Oximetry 94 97 97 Oxygen Delivery Method Room Air Room Air 04/25/18 07:55 04/25/18 11:27 04/25/18 15:53 Temperature 36.3 C L 36.5 C 37.0 C Temperature Source Oral Oral Oral Pulse Rate Pulse Rate [Apical] Pulse Rate [Right Finger] 66 66 67 Pulse Rhythm [Apical] Pulse Rhythm [Right Finger] Regular Pulse Strength [Apical] Pulse Strength [Right Finger] Normal Respiratory Rate 19 18 18 Respiratory Effort / Characteristics Non-Labored Respiratory Depth Normal Respiratory Pattern Blood Pressure Blood Pressure [Left Arm] 144/86 H Blood Pressure [Right Arm] 147/87 H 144/80 H Blood Pressure Mean Blood Pressure Mean [Left Arm] 105 Blood Pressure Mean [Right Arm] 107 101 Blood Pressure Position [Left Arm] Sitting Blood Pressure Position [Right Arm] Sitting Lying Pulse Oximetry 97 95 96 Oxygen Delivery Method Room Air Room Air Room Air 04/25/18 16:00 04/25/18 20:00 Temperature 36.7 C Temperature Source Oral Pulse Rate 66 Pulse Rate [Apical] Pulse Rate [Right Finger] 65 Pulse Rhythm [Apical] Pulse Rhythm [Right Finger] Regular Pulse Strength [Apical] Pulse Strength [Right Finger] Normal Respiratory Rate 19 Respiratory Effort / Characteristics Non-Labored Respiratory Depth Normal Respiratory Pattern Blood Pressure Blood Pressure [Left Arm] Blood Pressure [Right Arm] 134/84 Blood Pressure Mean Blood Pressure Mean [Left Arm] Blood Pressure Mean [Right Arm] 100 Blood Pressure Position [Left Arm] Blood Pressure Position [Right Arm] Lying Pulse Oximetry 96 Oxygen Delivery Method Room Air GENERAL: Awake, alert, well-appearing, in no distress HENT: Normocephalic, atraumatic. Oropharynx with dry mucous membranes and otherwise unremarkable. EYES: Normal conjunctiva. Sclera non-icteric. NECK: Supple. No nuchal rigidity. FROM. No JVD. RESPIRATORY: Clear to auscultation. CARDIAC: Regular rate, normal rhythm. Extremities warm and well perfused. Pulses equal. ABDOMEN: Soft, non-distended. No rebound or guarding. No masses. Mild epigastric and RLQ discomfort without discrete tenderness. RECTAL: No stool, melena, or blood on rectal exam. MUSCULOSKELETAL: Chest examination reveals no tenderness. The back is symmetrical on inspection without obvious abnormality. There is no CVA tenderness to palpation. No joint edema. LOWER EXTREMITIES: Calves are equal size bilaterally and non-tender. No edema. No discoloration. NEURO: Normal sensorium. No sensory or motor deficits noted. SKIN: No rash or jaundice noted. Course 1655: Past medical records reviewed. The patient was evaluated in room B3B, and a complete history and physical examination were performed. 2199: I reviewed the patient's case with Dr. Mensah [facility] [address] [facility] hospitalist. He will evaluate the patient for further management. Administered Medications Acetaminophen (Tylenol) 650 mg PO Q4H PRN PRN Reason: Pain or Fever Stop: 05/25/18 01:11 Last Admin: 04/25/18 20:27 Dose: 650 mg Admin: 04/25/18 12:35 Dose: 650 mg Admin: 04/25/18 07:32 Dose: 650 mg Budesonide/Formoterol Fumarate (Symbicort 160mcg/4.5mcg) 2 puffs INH BID [facility] Stop: 05/25/18 08:59 Last Admin: 04/25/18 20:22 Dose: 2 puffs Admin: 04/25/18 07:34 Dose: 2 puffs Hydroxyurea (Hydrea) 500 mg PO BID [facility] Stop: 05/25/18 08:59 Last Admin: 04/25/18 20:22 Dose: 500 mg Admin: 04/25/18 07:36 Dose: 500 mg Sodium Chloride (Nss 1000ml) 1,000 mls @ 75 mls/hr IV .[id number] [facility] Stop: 05/25/18 01:44 Last Admin: 04/25/18 12:32 Dose: 75 mls/hr Infusion: 04/25/18 12:32 Dose: 75 mls/hr Admin: 04/25/18 01:49 Dose: 75 mls/hr Heparin Sodium/Dextrose (Heparin Sodium/Dextrose) 25,000 units in 500 mls @ 22 mls/hr IV .[id number] VERONICA; Protocol Stop: 05/25/18 01:40 Last Titration: 04/25/18 19:18 Dose: 1,100 units/hr, 22 mls/hr Titration: 04/25/18 15:11 Dose: 1,100 units/hr, 22 mls/hr Titration: 04/25/18 14:17 Dose: 1,100 units/hr, 22 mls/hr Titration: 04/25/18 07:28 Dose: 1,200 units/hr, 24 mls/hr Admin: 04/25/18 01:49 Dose: 1,000 units/hr, 20 mls/hr Paroxetine HCl (Paxil) 30 mg PO QAM VERONICA Stop: 05/25/18 08:59 Last Admin: 04/25/18 07:33 Dose: 30 mg Tiotropium [place] (Spiriva) 2 puffs INH DAILY VERONICA Stop: 05/25/18 08:59 Last Admin: 04/25/18 07:35 Dose: 2 puffs Discontinued Medications Famotidine (Pepcid 20mg Iv Push) 20 mg IV ONE STA Stop: 04/24/18 17:14 Last Admin: 04/24/18 19:11 Dose: 20 mg Heparin Sodium/Dextrose () 1 ea IV ONE ONE; Protocol Stop: 04/24/18 22:01 Last Admin: 04/24/18 23:33 Dose: Not Given Heparin Sodium/Dextrose (Heparin Sodium/Dextrose) 25,000 units in 500 mls @ 20 mls/hr IV .Q24H VERONICA; Protocol Stop: 05/24/18 22:43 Last Titration: 04/25/18 10:23 Dose: 0 units/hr, 0 mls/hr Admin: 04/24/18 23:32 Dose: 1,000 units/hr, 20 mls/hr Heparin Sodium (Porcine) 4,000 (units/ Syringe) 4 mls @ 1 mls/min IV 0645 ONE; Protocol Stop: 04/25/18 06:48 Last Admin: 04/25/18 07:27 Dose: 1 mls/min Ioversol (Optiray 320 100ml) 93 ml IV ONCE PRN PRN Reason: Interaction Checking Stop: 04/28/18 20:18 Last Admin: 04/24/18 20:19 Dose: 93 ml Ioversol (Optiray 320 125ml) 125 ml IV ONCE PRN PRN Reason: Interaction Checking Stop: 04/28/18 22:38 Last Admin: 04/24/18 22:39 Dose: 98 ml Ondansetron HCl (Zofran) 4 mg IV NOW STA Stop: 04/24/18 17:14 Last Admin: 04/24/18 19:11 Dose: 4 mg Medical Decision Making Differential Diagnosis Differential diagnosis: Etiologies such as appendicitis, diverticulitis, PUD, biliary pathology, UTI, pancreatitis, obstruction, mesenteric ischemia, aortic pathology, infections, inflammatory bowel disease, renal colic, as well as others were entertained. Medical Records Attestation: I reviewed the patient's medical records. Home Medications Current Medication List: was personally reviewed by me Laboratory Data Attestation: I reviewed the patient's lab results. Result diagrams: 04/25/18 05:12 04/25/18 05:12 Lab Results 04/24/18 04/24/18 04/24/18 Range/Units 19:08 19:08 19:08 WBC 4.73 L (4.8-10.8) K/uL RBC 2.95 L (4.2-5.4) M/uL Hgb 11.5 L (12.0-16.0) g/dL Hct 34.9 L (37-47) % MCV 118.3 H (80-100) fL MCH 39.0 H (25-34) pg MCHC 33.0 (32-36) g/dL RDW Std Deviation 57.7 H (36.4-46.3) fL RDW Coeff of Ysabel 13.4 (11.5-14.5) % Plt Count 395 (130-400) K/uL MPV 9.4 (7.4-10.4) fL Immature Gran % (Auto) 0.2 % Neut % (Auto) 72.8 % Lymph % (Auto) 13.3 % [place] % (Auto) 10.6 % Eos % (Auto) 2.3 % Baso % (Auto) 0.8 % Immature Gran # (Auto) 0.01 (0.00-0.02) K/uL Neut # (Auto) 3.44 (1.4-6.5) K/uL Lymph # (Auto) 0.63 L (1.2-3.4) K/uL [place] # (Auto) 0.50 (0.11-0.59) K/uL Eos # (Auto) 0.11 (0-0.5) K/uL Baso # (Auto) 0.04 (0-0.2) K/uL Hypersegmented Neuts 2+ Macrocytosis Present PT 10.2 (9.0-12.0) Seconds INR 1.0 (0.9-1.1) APTT (21.0-31.0) Seconds PTT Ratio Sodium 136 (136-145) mmol/L Potassium 3.9 (3.5-5.1) mmol/L Chloride 106 (98-107) mmol/L Carbon Dioxide 25 (21-32) mmol/L Anion Gap 5.0 (3-11) BUN 23 H (7-18) mg/dl Creatinine 1.19 (0.6-1.2) mg/dl Est Cr Clr Drug Dosing 43.9 ml/min Est GFR ( Amer) 57.1 Est GFR (Non-Af Amer) 49.2 BUN/Creatinine Ratio 19.6 (10-20) Glucose 84 (70-99) mg/dl Calcium 8.2 L (8.5-10.1) mg/dl Magnesium 2.2 (1.8-2.4) mg/dl Total Bilirubin 0.4 (0.2-1) mg/dl Direct Bilirubin 0.1 (0-0.2) mg/dl AST 29 (15-37) U/L ALT 25 (12-78) U/L Alkaline Phosphatase 115 (45-117) U/L Troponin I < 0.015 (0-0.045) ng/ml NT-Pro-B Natriuret Pep 115 (0-900) pg/ml Total Protein 7.1 (6.4-8.2) gm/dl Albumin 3.5 (3.4-5.0) gm/dl Globulin 3.6 (2.5-4.0) gm/dl Albumin/Globulin Ratio 1.0 (0.9-2) Lipase 92 (73-393) U/L Carcinoembryonic Ag (0-2.5) ng/ml Urine Color Urine Appearance (Clear) Urine pH (4.5-7.5) Ur Specific [place]atum (1.000-1.030) Urine Protein (Negative) Urine Glucose (UA) (Negative) Urine Ketones (Negative) Urine Blood (Negative) Urine Nitrite (Negative) Urine Bilirubin (Negative) Urine Urobilinogen (Negative) Ur Leukocyte Esterase (Negative) POC Stool Occult Blood (Negative) Lyme Disease IgG Ab (Negative) Lyme Disease IgM Ab (Negative) 04/24/18 04/24/18 04/24/18 Range/Units 19:08 19:20 19:28 WBC (4.8-10.8) K/uL RBC (4.2-5.4) M/uL Hgb (12.0-16.0) g/dL Hct (37-47) % MCV (80-100) fL MCH (25-34) pg MCHC (32-36) g/dL RDW Std Deviation (36.4-46.3) fL RDW Coeff of Ysabel (11.5-14.5) % Plt Count (130-400) K/uL MPV (7.4-10.4) fL Immature Gran % (Auto) % Neut % (Auto) % Lymph % (Auto) % [place] % (Auto) % Eos % (Auto) % Baso % (Auto) % Immature Gran # (Auto) (0.00-0.02) K/uL Neut # (Auto) (1.4-6.5) K/uL Lymph # (Auto) (1.2-3.4) K/uL [place] # (Auto) (0.11-0.59) K/uL Eos # (Auto) (0-0.5) K/uL Baso # (Auto) (0-0.2) K/uL Hypersegmented Neuts Macrocytosis PT (9.0-12.0) Seconds INR (0.9-1.1) APTT (21.0-31.0) Seconds PTT Ratio Sodium (136-145) mmol/L Potassium (3.5-5.1) mmol/L Chloride (98-107) mmol/L Carbon Dioxide (21-32) mmol/L Anion Gap (3-11) BUN (7-18) mg/dl Creatinine (0.6-1.2) mg/dl Est Cr Clr Drug Dosing ml/min Est GFR ( Amer) Est GFR (Non-Af Amer) BUN/Creatinine Ratio (10-20) Glucose (70-99) mg/dl Calcium (8.5-10.1) mg/dl Magnesium (1.8-2.4) mg/dl Total Bilirubin (0.2-1) mg/dl Direct Bilirubin (0-0.2) mg/dl AST (15-37) U/L ALT (12-78) U/L Alkaline Phosphatase (45-117) U/L Troponin I (0-0.045) ng/ml NT-Pro-B Natriuret Pep (0-900) pg/ml Total Protein (6.4-8.2) gm/dl Albumin (3.4-5.0) gm/dl Globulin (2.5-4.0) gm/dl Albumin/Globulin Ratio (0.9-2) Lipase (73-393) U/L Carcinoembryonic Ag (0-2.5) ng/ml Urine Color Yellow Urine Appearance Clear (Clear) Urine pH 5.0 (4.5-7.5) Ur Specific [place]atum 1.015 (1.000-1.030) Urine Protein Negative (Negative) Urine Glucose (UA) Negative (Negative) Urine Ketones Negative (Negative) Urine Blood Negative (Negative) Urine Nitrite Negative (Negative) Urine Bilirubin Negative (Negative) Urine Urobilinogen Negative (Negative) Ur Leukocyte Esterase Negative (Negative) POC Stool Occult Blood Negative (Negative) Lyme Disease IgG Ab Negative (Negative) Lyme Disease IgM Ab Negative (Negative) 04/25/18 04/25/18 04/25/18 Range/Units 05:12 05:12 05:12 WBC 4.26 L (4.8-10.8) K/uL RBC 2.95 L (4.2-5.4) M/uL Hgb 11.6 L (12.0-16.0) g/dL Hct 35.2 L (37-47) % MCV 119.3 H (80-100) fL MCH 39.3 H (25-34) pg MCHC 33.0 (32-36) g/dL RDW Std Deviation 58.3 H (36.4-46.3) fL RDW Coeff of Ysabel 13.5 (11.5-14.5) % Plt Count 360 (130-400) K/uL MPV 9.5 (7.4-10.4) fL Immature Gran % (Auto) 0.2 % Neut % (Auto) 68.9 % Lymph % (Auto) 14.8 % [place] % (Auto) 12.9 % Eos % (Auto) 2.3 % Baso % (Auto) 0.9 % Immature Gran # (Auto) 0.01 (0.00-0.02) K/uL Neut # (Auto) 2.93 (1.4-6.5) K/uL Lymph # (Auto) 0.63 L (1.2-3.4) K/uL [place] # (Auto) 0.55 (0.11-0.59) K/uL Eos # (Auto) 0.10 (0-0.5) K/uL Baso # (Auto) 0.04 (0-0.2) K/uL Hypersegmented Neuts 2+ Macrocytosis Present PT (9.0-12.0) Seconds INR (0.9-1.1) APTT 33.6 H (21.0-31.0) Seconds PTT Ratio 1.3 Sodium 139 (136-145) mmol/L Potassium 3.9 (3.5-5.1) mmol/L Chloride 108 H (98-107) mmol/L Carbon Dioxide 27 (21-32) mmol/L Anion Gap 4.0 (3-11) BUN 18 (7-18) mg/dl Creatinine 1.17 (0.6-1.2) mg/dl Est Cr Clr Drug Dosing 44.4 ml/min Est GFR ( Amer) 58.2 Est GFR (Non-Af Amer) 50.3 BUN/Creatinine Ratio 15.2 (10-20) Glucose 84 (70-99) mg/dl Calcium 8.1 L (8.5-10.1) mg/dl Magnesium 2.3 (1.8-2.4) mg/dl Total Bilirubin (0.2-1) mg/dl Direct Bilirubin (0-0.2) mg/dl AST (15-37) U/L ALT (12-78) U/L Alkaline Phosphatase (45-117) U/L Troponin I (0-0.045) ng/ml NT-Pro-B Natriuret Pep (0-900) pg/ml Total Protein (6.4-8.2) gm/dl Albumin (3.4-5.0) gm/dl Globulin (2.5-4.0) gm/dl Albumin/Globulin Ratio (0.9-2) Lipase (73-393) U/L Carcinoembryonic Ag (0-2.5) ng/ml Urine Color Urine Appearance (Clear) Urine pH (4.5-7.5) Ur Specific [place] (1.000-1.030) Urine Protein (Negative) Urine Glucose (UA) (Negative) Urine Ketones (Negative) Urine Blood (Negative) Urine Nitrite (Negative) Urine Bilirubin (Negative) Urine Urobilinogen (Negative) Ur Leukocyte Esterase (Negative) POC Stool Occult Blood (Negative) Lyme Disease IgG Ab (Negative) Lyme Disease IgM Ab (Negative) 04/25/18 04/25/18 Range/Units 13:34 18:30 WBC (4.8-10.8) K/uL RBC (4.2-5.4) M/uL Hgb (12.0-16.0) g/dL Hct (37-47) % MCV (80-100) fL MCH (25-34) pg MCHC (32-36) g/dL RDW Std Deviation (36.4-46.3) fL RDW Coeff of Ysabel (11.5-14.5) % Plt Count (130-400) K/uL MPV (7.4-10.4) fL Immature Gran % (Auto) % Neut % (Auto) % Lymph % (Auto) % [place] % (Auto) % Eos % (Auto) % Baso % (Auto) % Immature Gran # (Auto) (0.00-0.02) K/uL Neut # (Auto) (1.4-6.5) K/uL Lymph # (Auto) (1.2-3.4) K/uL [place] # (Auto) (0.11-0.59) K/uL Eos # (Auto) (0-0.5) K/uL Baso # (Auto) (0-0.2) K/uL Hypersegmented Neuts Macrocytosis PT (9.0-12.0) Seconds INR (0.9-1.1) APTT 78.3 H* (21.0-31.0) Seconds PTT Ratio 3.0 Sodium (136-145) mmol/L Potassium (3.5-5.1) mmol/L Chloride (98-107) mmol/L Carbon Dioxide (21-32) mmol/L Anion Gap (3-11) BUN (7-18) mg/dl Creatinine (0.6-1.2) mg/dl Est Cr Clr Drug Dosing ml/min Est GFR ( Amer) Est GFR (Non-Af Amer) BUN/Creatinine Ratio (10-20) Glucose (70-99) mg/dl Calcium (8.5-10.1) mg/dl Magnesium (1.8-2.4) mg/dl Total Bilirubin (0.2-1) mg/dl Direct Bilirubin (0-0.2) mg/dl AST (15-37) U/L ALT (12-78) U/L Alkaline Phosphatase (45-117) U/L Troponin I (0-0.045) ng/ml NT-Pro-B Natriuret Pep (0-900) pg/ml Total Protein (6.4-8.2) gm/dl Albumin (3.4-5.0) gm/dl Globulin (2.5-4.0) gm/dl Albumin/Globulin Ratio (0.9-2) Lipase (73-393) U/L Carcinoembryonic Ag 0.9 (0-2.5) ng/ml Urine Color Urine Appearance (Clear) Urine pH (4.5-7.5) Ur Specific [place] (1.000-1.030) Urine Protein (Negative) Urine Glucose (UA) (Negative) Urine Ketones (Negative) Urine Blood (Negative) Urine Nitrite (Negative) Urine Bilirubin (Negative) Urine Urobilinogen (Negative) Ur Leukocyte Esterase (Negative) POC Stool Occult Blood (Negative) Lyme Disease IgG Ab (Negative) Lyme Disease IgM Ab (Negative) Imaging Data Radiologist's Impression: Radiology results as stated below per my review and the radiologist's interpretation: CT OF THE ABDOMEN AND PELVIS WITH CONTRAST CLINICAL HISTORY: abdominal pain, black stool. History of colon cancer. COMPARISON STUDY: CT of the abdomen and pelvis May 14, 2017. Right upper quadrant ultrasound May 14, 2017. TECHNIQUE: Following IV administration of 93 mL of Optiray-320, axial images of the abdomen and pelvis were obtained from the lung bases to the proximal femurs. Images were reviewed in the axial, sagittal, and coronal planes. IV contrast was administered without complication. Automated exposure control was utilized for the study. A dose lowering technique was utilized adhering to the principles of ALARA. CT DOSE: 311.98 mGy.cm FINDINGS: There is a possible small segmental pulmonary embolus within a right lower lobe pulmonary artery on image 11 of 376. No pneumatosis, free air or portal venous gas is present. The liver, spleen, adrenal glands, left kidney and pancreas are normal. The patient is status post right hemicolectomy. There has been interval development of severe right hydroureteronephrosis with delayed right nephrogram due to obstruction of the right ureter by a conglomerate retroperitoneal mass that measures approximately 6.3 x 4.3 cm. This was not present on CT of May 14, 2017. This encases the aortic bifurcation. There is possible thrombus within the IVC at this level. There is no evidence for a bowel obstruction. There are prominent collaterals along the bladder wall. There are also suspected prominent epidural veins within the lumbar spine. No suspicious osseous lesions are present. There is no pneumatosis , free air or portal venous gas. IMPRESSION: 1. Interval development of a conglomerate 6.3 x 4.3 cm retroperitoneal mass since CT of May 14, 2017. This encases the aortic bifurcation and the IVC with suspected extensive deep thrombus within the IVC and right common iliac vein. This results in narrowing of the right ureter with resultant severe right hydroureteronephrosis. Given the clinical history, metastatic disease is favored. 2. Suspected small segmental pulmonary embolus within the right lower lobe. A PE protocol CT of the chest be obtained. 3. No bowel obstruction. Status post right hemicolectomy. 4. Suspected prominent epidural collaterals within the lumbar spine. Epidural tumor could appear similar but is considered less likely. Electronically signed by: Yuri Ojeda M.D. 04/24/2018 9:01 PM XR chest 1V portable CLINICAL HISTORY: Chest Pain pain COMPARISON STUDY: No previous studies for comparison. FINDINGS: Central catheter in superior vena cava. Diaphragms smooth. Lungs are clear. No significant cardiac enlargement. IMPRESSION: Negative chest. The above report was generated using voice recognition software. It may contain grammatical, syntax or spelling errors. Electronically signed by: David Bass M.D. 04/24/2018 6:08 PM ECG Data Attestation: I personally reviewed and interpreted this ECG as follows: Indication: abdominal pain Rate (beats per minute): 68 Rhythm: normal sinus Findings: + other (Normal axis); no acute ischemic change Blood Pressure Blood Pressure Findings: Elevated blood pressure Blood Pressure Disposition: further management by hospitalist JACINTO Arreola The patient is a pleasant 63-year-old woman with a past medical history of thrombocytosis, history of colon cancer status post radiation and resection who presents emergency department with concern for black stools with associated abdominal pain and lower extremity swelling over the past couple of days per hpi. On arrival patient is in no acute distress, afebrile stable vital signs. On exam the patient has mild epigastric and right lower quadrant discomfort without discrete tenderness. Rectal exam demonstrates no stool, melena or blood at this time. Stool sample of black stool brought in by patient was guaiac negative and this likely related to her recent use of Pepto-Bismol. She has 1+ bilateral lower extremity edema. EKG without acute ischemia. Chest x- ray negative. WBC 4.7, H/H 11.5/34.9 and platelets 395 without recent values for comparison. Chemistry without acidosis. BUN 23 consistent with the patient 's clinically dry appearance. Troponin negative. UA negative for infection. Lyme screen negative, which is ordered given the patient's report of intermittent nonspecific rashes and a history of tick exposures. CT abdomen pelvis demonstrates numerous findings concerning for possible metastatic disease including 6.3 x 4.3 retro-peritoneal mass which encases the aortic bifurcation and the IVC with suspected deep thrombus within the IVC and right common iliac vein. With this is associated narrowing of the right ureter with associated right hydro-ureter nephrosis. Note is made of segmental pulmonary emboli of the right lower lobe which was further clarified on CTA of the chest. Suspected prominent epidural collaterals of the lumbar spine could be suggestive of epidural tumor though considered less likely per radiology report. Given the patient's extensive findings including PE and IVC thrombus reasonable to admit the patient for further management. Will begin anticoagulation with heparin drip without bolus. Case was discussed with Dr. Mensah, [facility] hosptialist, who will evaluate the patient for admission. Impression & Plan Metastatic disease, IVC thrombosis, Pulmonary embolism Critical Care Time I have personally spent greater than 35 minutes of critical care time in the direct management of this patient. This includes bedside care, interpretation of diagnostic studies, and testing, discussion with consultants, patient, and family members, and other required patient management activities. This 35 minutes is in excess of all separately billable procedures. Critical Care Time: Yes Total Critical Care Time: 35 Discharge Plan Visit Data *Final* Discharge Date/Time: 04/25/18 00:42 Chief Complaint: GI Assessment Stated Complaint: DARK STOOLS, STOMACH PAIN, SWELLING TO LEGS ED Provider: Andres Ames Discharge Problem: Metastatic disease, IVC thrombosis, Pulmonary embolism Patient Disposition: Admitted As Inpatient Discharge Instructions Interventions: ED Discharge Assessment Last Done: 04/25/18 00:42 The scribe's documentation has been prepared under my direction and personally reviewed by me in its entirety. I confirm that the note above accurately reflects all work, treatment, procedures, and medical decision making performed by me.
[2018-04-25] MEDS ORDERED: POLYETHYLENE (MIRALAX) 17 GM PACK PO PRN (01:12)
[2018-04-25] MEDS ORDERED: ALUMINUM/MAGNESIUM SUSP 30 ML UDC PO PRN (01:12)
[2018-04-25] MEDS ORDERED: Heparin IV Standard *NO* Bolus ONE (01:12)
[2018-04-25] MEDS ORDERED: ONDANSETRON INJ 2 MG/ML 2 ML VIAL IV PRN (01:12)
[2018-04-25] MEDS ORDERED: NITROGLYCERIN SL 0.4 MG/TAB TAB SL PRN (01:12)
[2018-04-25] MEDS ORDERED: LORazepam 0.5 MG TAB PO PRN (01:12)
[2018-04-25] MEDS ORDERED: BISMUTH SUBSALICYLATE SUSP PO PRN (01:17)
[2018-04-25] MEDS ORDERED: ALBUTEROL HFA 8 GM INHALER INH PRN (01:41)
[2018-04-25] MEDS: SODIUM CHLORIDE 0.9% 1000ML 1,000 ML IV SCH ×2 (01:49→12:32)
[2018-04-25] MEDS: HEPARIN STANDARD DEXTROSE 25,000 UNITS/500 ML IV SCH ×2 (01:49→23:06)
[2018-04-25] MEDS ORDERED: CALCIUM CARBONATE 500 MG CHEWABLE TAB PO PRN (02:02)
[2018-04-25 06:04] LABS: Basophils # (auto) 0.04 K/uL (0-0.2); Basophils % (auto) 0.9 %; Eosinophils % (auto) 2.3 %; Hematocrit (blood only) 35.2 % (37-47); Hemoglobin 11.6 g/dL (12.0-16.0); Immature Granulocytes # (auto) 0.01 K/uL (0.00-0.02); Immature Granulocytes % (auto) 0.2 %; Lymphocytes # (auto) 0.63 K/uL (1.2-3.4); Lymphocytes % (auto) 14.8 %; Mean Corpuscular Volume 119.3 fL (80-100); Mean Platelet Volume 9.5 fL (7.4-10.4); Monocytes # (auto) 0.55 K/uL (0.11-0.59); Monocytes % (auto) 12.9 %; Neutrophils # (auto) 2.93 K/uL (1.4-6.5); Neutrophils % (auto) 68.9 %; Platelet Count 360 K/uL (130-400); RDW Coefficient of Variation 13.5 % (11.5-14.5); RDW Standard Deviation 58.3 fL (36.4-46.3); Red Blood Count 2.95 M/uL (4.2-5.4); White Blood Count 4.26 K/uL (4.8-10.8)
[2018-04-25 06:22] LABS: Partial Thromboplastin Ratio 1.3; Partial Thromboplastin Time 33.6 Seconds (21.0-31.0)
[2018-04-25 06:31] LABS: Macrocytosis Present
[2018-04-25 06:41] LABS: BUN Creatinine Ratio 15.2 (10-20); Calcium 8.1 mg/dl (8.5-10.1); Creatinine Clr Calc Pharmacy 44.4 ml/min; Est GFR (African American) 58.2; Est GFR (Non-African American) 50.3; Magnesium 2.3 mg/dl (1.8-2.4); Potassium 3.9 mmol/L (3.5-5.1)
[2018-04-25] MEDS ORDERED: HEPARIN IV BOLUS 4,000 UNITS in SYRINGE 0 ML IV ONE (06:45)
[2018-04-25] MEDS: ACETAMINOPHEN 325 MG TAB PO PRN ×3 (07:32→20:27)
[2018-04-25] MEDS: PARoxetine HCl 20 MG TAB PO SCH (07:33)
[2018-04-25] MEDS: BUDESONIDE/FORMOTEROL FUMARATE 160/4.5 60 PUFFS/INHALER INH SCH ×2 (07:34→20:22)
[2018-04-25] MEDS: TIOTROPIUM BROMIDE 5 PUFF/90 MCG INH INH SCH (07:35)
[2018-04-25] MEDS: HYDROXYUREA 500 MG CAP PO SCH ×2 (07:36→20:22)
--- NOTE | 2018-04-25 08:12 | History and Physical Report ---
DATE OF ADMISSION: 04/24/2018 CHIEF COMPLAINT: Abdominal discomfort and lower extremity edema. HISTORY OF PRESENT ILLNESS: This is a 63-year-old female with past medical history significant for COPD, moderate allergic rhinitis, essential thrombocytosis, history of tobacco abuse, history of depression, history of cecal adenocarcinoma, status post exploratory laparotomy and she was found to have unresectable disease, underwent ileal small bowel to transverse colon side to side anastomosis on 08/08/2016, status post neoadjuvant modified [id number] chemotherapy x5, then again after chemo status post right hemicolectomy in 03/2017. 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 She had another followup whole body PET scan in late 10/2017 and once again no metabolic disease was noted elsewhere and she was doing well with no symptoms. Because of dizziness, MRI scan done in 10/2017 which was also unremarkable. She comes because of abdominal discomfort and bloating in belly in the last few days and also noticed swelling in the lower extremity. She thinks she also had black stools yesterday and today, which prompted her to come to the ER. In the ER, CAT scan of the abdomen and pelvis was done which shows interval development of conglomerate of 6.3 x 4.3 retroperitoneal mass and this encases aortic bifurcation and IVC.Suspected, extensive deep thrombosis in IVC right common iliac vein. This results in narrowing of the right ureter with resultant severe right hydroureteronephrosis. Given the clinical history metastatic disease is suspected. Suspected prominent epidural collateral within the lumbar spine, epidural tumor could appear similar, but is considered less likely. CT of the chest was also done which showed small segmental pulmonary embolus in the right mid and posterior basilar segment of the right lower lobe. The patient is currently resting comfortable and hemoglobin stable. Abdominal pain is okay now. Denies any chest pain, no shortness of breath, no cough. Appetite is okay. She is sleeping okay. Ambulation is okay. No nausea, no vomiting. Normal bladder movements.Patient is aware of the CAT scan findings. ALLERGIES: No known allergies. PAST MEDICAL HISTORY: As mentioned above. PAST SURGICAL HISTORY: Colonoscopy, knee arthroscopy, partial colectomy with anastomosis performed by Dr. Uribe, right ovarian cyst. MEDICATIONS: Currently, the patient is on Ativan 0.5 mg p.o. b.i.d. p.r.n., Flexeril 30 mg p.o. daily, hydroxyurea 500 mg p.o. b.i.d., Dulera 100/5 mcg two puffs b.i.d., Spiriva 18 mcg inhalation daily, ProAir 2 puffs 4 hours p.r.n., Premarin x 0.625 mg 2 times a week. FAMILY HISTORY: Significant for father had prostate cancer. Mother had breast cancer. Father's side had kidney cancer. SOCIAL HISTORY: , lives with her . Former smoker, quit in 2004. Prior to that smoked 2 packs a day for 25 years. Alcohol occasionally. No drug use. REVIEW OF SYMPTOMS: As per HPI. Rest of review of systems negative. PHYSICAL EXAMINATION: GENERAL: The patient is of moderate build, not in acute distress. VITAL SIGNS: Temperature 36.5, pulse 64, respiratory rate 16, blood pressure 171/84, oxygen 90% room air. HEENT: No pallor, no icterus. Pupils equal, round, and reactive to light. NECK: No JVD, no neck masses, no carotid bruits. CARDIOVASCULAR: S1, S2 heard, regular rate and rhythm, no murmur, no gallop. RESPIRATORY SYSTEM: Normal AP diameter. No accessory muscle use. No wheezing, no crackles. ABDOMEN: Soft, bowel sounds present. Nontender. No distention. CENTRAL NERVOUS SYSTEM: Cranial nerves II-XII grossly intact. Nonfocal. EXTREMITIES: Lower extremity edema present, no erythema seen. LABORATORIES: WBC 4.7, hemoglobin 11.5, hematocrit 34.9, platelets 395. PT 10.2, INR 1. Sodium 136, potassium 3.9, chloride 106, bicarbonate 25, BUN 23, creatinine 1.1, serum glucose 84, calcium 8.2, magnesium 2.2, total bilirubin 0.4, direct bilirubin 0.1, AST 29, ALT 25, alkaline phosphatase 115. Troponin I less than 0.015. BNP 115. Total protein 7.1. Lipase 92. Urinalysis negative. Stool occult negative. Lyme disease IgG and IgM negative. Chest x-ray, negative chest. CT of the abdomen and pelvis shows interval development of conglomerate 6.3 x 4.3 cm retroperitoneal mass seen on CT of 05/14/2017. This encases the aortic bifurcation and the IVC with suspected extensive deep vein thrombosis in IVC and common iliac vein. This results in narrowing of the right ureter with resultant severe right hydroureteronephrosis. Given the clinical history metastatic disease is suspected. No bowel obstruction status post right hemicolectomy, suspected prominent epidural collaterals within the lumbar spine, epidural tumor could appear similar, but is considered less likely. CT of the chest shows small segmental pulmonary embolus within the posterior basilar segment of the right lower lobe, moderate emphysema, EKG shows normal sinus rhythm with rate of 68, no acute ST changes seen. 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 1. Inferior vena cava, deep venous thrombosis and lower lobe pulmonary embolism. We will start on IV heparin. The patient complains of some black stools yesterday and today but her Hemoccult was negative in the ER. We will closely monitor for any bleeding and we will consult vascular surgery for possible IVC filter placement if any bleeding happens. 2. Retroperitoneal mass. 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 . We will consult Hematology/Oncology and Surgery for further recommendations. 3. Severe right hydroureteronephrosis secondary to above mass. Currently, patient's renal function is okay. We will consult Urology for further recommendations. 4. History of chronic obstructive pulmonary disease, history of tobacco abuse in the past. Continue home inhaler, currently stable. 5. History of depression and anxiety. Continue home Paxil and Ativan p.r.n. 6. History of thrombocytosis, platelets are okay. Continue hydroxyurea. 7. Deep venous thrombosis prophylaxis, on IV heparin. 8. Disposition. Close monitoring in tele floor. Level 1 full code. MTDD
[2018-04-25] MEDS ORDERED: DULERA INH SCH (09:00)
[2018-04-25 14:15] LABS: Partial Thromboplastin Time 78.3 Seconds (21.0-31.0)
--- NOTE | 2018-04-25 14:26 | Surgery Consultation ---
Date of Consultation April 25, 2018 Assessment & Plan (1) Abdominal mass: CT scan concerning for metastatic disease given history. Mass is encasing the aortic bifurcation as well as IVC which is causing narrowing of the right ureter causing severe right hydroureteronephrosis. + Thrombus in IVC as well as small pulmonary embolus in RLL Plan: As there is no evidence of bowel obstruction and since the mass is encasing the aortic bifurcation and IVC, no immediate surgical intervention recommended at this time. Will await oncology recommendations for chemotherapy. She still has aport for access. Await urology input as well given severe hydroureteronephrosis She should follow-up with her surgeon Dr. Cheng (Colorectal surgeon, [facility]) once treatment plan is established. Continue Heparin for pulmonary embolus Continue Medical management Our services signing off, please call with questions and concerns Dr. Kaufman has seen patient, developed assessment and plan. (2) Metastatic disease: (3) IVC thrombosis: (4) Pulmonary embolism: History of Present Illness Reason for Consultation: Abdominal mass Requesting Physician: Dr. Mensah Attending Physician: Rahat Pacheco MD History of Present Illness Guadalupe is a very pleasant 63-year-old female with past medical history significant for COPD, moderate allergic rhinitis, essential thrombocytosis, tobacco abuse, depression, and cecal adenocarcinoma who underwent exploratory lapartomy by Dr. Kaufman in July of 2016 in which she was found to have a unresectable colon mass in the RLQ to the posterior abdomen and required small bowel to transverse colon bypass. She then underwent neoadjuvant modified FOLFOX6 chemotherapy x5. She had response from chemotherpay and underwent right hemicolectomy by Dr. Cheng at [facility] in March of 2017. 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 She had a follow-up CT scan which showed positive response and she was seen by Medical Oncology at [facility] and suggested a whole body PET scan with no suspicious finding noted in the PET scan in 06/2017 and she had normal endocrine markers in he blood and urine. She had another followup whole body PET scan in late 10/2017 and once again no metabolic disease was noted elsewhere. Guadalupe presented to emergency department with complaint of abdominal pain and bloating, lower extremity swelling, and black stools for 2 days. CAT scan of the abdomen and pelvis was done which shows interval development of conglomerate of 6.3 x 4.3 retroperitoneal mass and this encases aortic bifurcation and IVC. Suspected, extensive deep thrombosis in IVC right common iliac vein. This results in narrowing of the right ureter with resultant severe right hydroureteronephrosis. CT of the chest was also done which showed small segmental pulmonary embolus in the right mid and posterior basilar segment of the right lower lobe. Allergies Allergy/AdvReac Type Severity Reaction Status Date / Time No Known Allergies Allergy Verified 04/24/18 18:04 Home Medications Home Medications Medication Instructions Recorded Confirmed Type Dulera 2 puff INHALATION BID 04/24/18 04/24/18 History albuterol sulfate [ProAir HFA] 2 puff INHALATION Q6H PRN 04/24/18 04/24/18 History bismuth subsalicylate 524 mg PO QID PRN 04/24/18 04/24/18 History [Pepto-Bismol] calcium carbonate [Tums] 300 mg PO DIRECTED PRN 04/24/18 04/24/18 History hydroxyurea 500 mg PO BID 04/24/18 04/24/18 History lorazepam 0.5 mg PO BID PRN 04/24/18 04/24/18 History paroxetine HCl 30 mg PO QAM 04/24/18 04/24/18 History tiotropium bromide [Spiriva 2 puff INHALATION QAM 04/24/18 04/24/18 History Respimat] Patient History Medical History Thrombocytosis Colon cancer (Chronic) COPD (chronic obstructive pulmonary disease) Surgical History History of partial surgical removal of colon Social History Current Living Situation: Spouse Other Information That Helps Us Care for You: No Feels Safe at Home: Yes Safety Concerns: Feels Safe At This Time Smoking Status: Former smoker Do You Dip or Chew Tobacco: No Second Hand Exposure: No Tobacco Cessation Education Requested by Patient: No Hx Alcohol Use: Yes Alcohol type: beer Alcohol Intake Frequency: a few times a month Hx Substance Use: No Beliefs That Will Affect Care: None Preferred Language: Upper Sorbian Communication Ability: Effective Director Database Required: No Review of Systems Constitutional: as per Subjective / HPI Physical Exam 2 Vital Signs (Past 24 Hours): Last Vital Signs Temp 36.5 C 04/25/18 11:27 Pulse 66 04/25/18 11:27 Resp 18 04/25/18 11:27 BP 144/86 H 04/25/18 11:27 Pulse Ox 95 04/25/18 11:27 Constitutional: WD/WN, vitals as above no acute distress Neck: normal visual inspection and trachea midline Respiratory: normal respiratory effort; no respiratory distress Gastrointestinal (Abdomen): Inspection/Auscultation: abdomen normal to inspection, normal bowel sounds and + abdominal surgical scar (midline laparotomy scar present); abdomen not distended Percussion/Palpation: + abdomen tender (mildly tender in the L mid abdomen and RLQ) Skin: no rashes, warm and dry Psychiatric: A+Ox3, euthymic affect Results & Data Laboratory Results 04/25/18 04/25/18 04/25/18 Range/Units 13:34 05:12 05:12 WBC (4.8-10.8) K/uL RBC (4.2-5.4) M/uL Hgb (12.0-16.0) g/dL Hct (37-47) % MCV (80-100) fL MCH (25-34) pg MCHC (32-36) g/dL RDW Std Deviation (36.4-46.3) fL RDW Coeff of Ysabel (11.5-14.5) % Plt Count (130-400) K/uL MPV (7.4-10.4) fL Immature Gran % (Auto) % Neut % (Auto) % Lymph % (Auto) % Lamb % (Auto) % Eos % (Auto) % Baso % (Auto) % Immature Gran # (Auto) (0.00-0.02) K/uL Neut # (Auto) (1.4-6.5) K/uL Lymph # (Auto) (1.2-3.4) K/uL Lamb # (Auto) (0.11-0.59) K/uL Eos # (Auto) (0-0.5) K/uL Baso # (Auto) (0-0.2) K/uL Hypersegmented Neuts Macrocytosis PT (9.0-12.0) Seconds INR (0.9-1.1) APTT 78.3 H* 33.6 H (21.0-31.0) Seconds PTT Ratio 3.0 1.3 Sodium 139 (136-145) mmol/L Potassium 3.9 (3.5-5.1) mmol/L Chloride 108 H (98-107) mmol/L Carbon Dioxide 27 (21-32) mmol/L Anion Gap 4.0 (3-11) BUN 18 (7-18) mg/dl Creatinine 1.17 (0.6-1.2) mg/dl Est Cr Clr Drug Dosing 44.4 ml/min Est GFR ( Amer) 58.2 Est GFR (Non-Af Amer) 50.3 BUN/Creatinine Ratio 15.2 (10-20) Glucose 84 (70-99) mg/dl Calcium 8.1 L (8.5-10.1) mg/dl Magnesium 2.3 (1.8-2.4) mg/dl Total Bilirubin (0.2-1) mg/dl Direct Bilirubin (0-0.2) mg/dl AST (15-37) U/L ALT (12-78) U/L Alkaline Phosphatase (45-117) U/L Troponin I (0-0.045) ng/ml NT-Pro-B Natriuret Pep (0-900) pg/ml Total Protein (6.4-8.2) gm/dl Albumin (3.4-5.0) gm/dl Globulin (2.5-4.0) gm/dl Albumin/Globulin Ratio (0.9-2) Lipase (73-393) U/L Urine Color Urine Appearance (Clear) Urine pH (4.5-7.5) Ur Specific [place] (1.000-1.030) Urine Protein (Negative) Urine Glucose (UA) (Negative) Urine Ketones (Negative) Urine Blood (Negative) Urine Nitrite (Negative) Urine Bilirubin (Negative) Urine Urobilinogen (Negative) Ur Leukocyte Esterase (Negative) POC Stool Occult Blood (Negative) Lyme Disease IgG Ab (Negative) Lyme Disease IgM Ab (Negative) 04/25/18 04/24/18 04/24/18 Range/Units 05:12 19:28 19:20 WBC 4.26 L (4.8-10.8) K/uL RBC 2.95 L (4.2-5.4) M/uL Hgb 11.6 L (12.0-16.0) g/dL Hct 35.2 L (37-47) % MCV 119.3 H (80-100) fL MCH 39.3 H (25-34) pg MCHC 33.0 (32-36) g/dL RDW Std Deviation 58.3 H (36.4-46.3) fL RDW Coeff of Ysabel 13.5 (11.5-14.5) % Plt Count 360 (130-400) K/uL MPV 9.5 (7.4-10.4) fL Immature Gran % (Auto) 0.2 % Neut % (Auto) 68.9 % Lymph % (Auto) 14.8 % Lamb % (Auto) 12.9 % Eos % (Auto) 2.3 % Baso % (Auto) 0.9 % Immature Gran # (Auto) 0.01 (0.00-0.02) K/uL Neut # (Auto) 2.93 (1.4-6.5) K/uL Lymph # (Auto) 0.63 L (1.2-3.4) K/uL Lamb # (Auto) 0.55 (0.11-0.59) K/uL Eos # (Auto) 0.10 (0-0.5) K/uL Baso # (Auto) 0.04 (0-0.2) K/uL Hypersegmented Neuts 2+ Macrocytosis Present PT (9.0-12.0) Seconds INR (0.9-1.1) APTT (21.0-31.0) Seconds PTT Ratio Sodium (136-145) mmol/L Potassium (3.5-5.1) mmol/L Chloride (98-107) mmol/L Carbon Dioxide (21-32) mmol/L Anion Gap (3-11) BUN (7-18) mg/dl Creatinine (0.6-1.2) mg/dl Est Cr Clr Drug Dosing ml/min Est GFR ( Amer) Est GFR (Non-Af Amer) BUN/Creatinine Ratio (10-20) Glucose (70-99) mg/dl Calcium (8.5-10.1) mg/dl Magnesium (1.8-2.4) mg/dl Total Bilirubin (0.2-1) mg/dl Direct Bilirubin (0-0.2) mg/dl AST (15-37) U/L ALT (12-78) U/L Alkaline Phosphatase (45-117) U/L Troponin I (0-0.045) ng/ml NT-Pro-B Natriuret Pep (0-900) pg/ml Total Protein (6.4-8.2) gm/dl Albumin (3.4-5.0) gm/dl Globulin (2.5-4.0) gm/dl Albumin/Globulin Ratio (0.9-2) Lipase (73-393) U/L Urine Color Yellow Urine Appearance Clear (Clear) Urine pH 5.0 (4.5-7.5) Ur Specific [place] 1.015 (1.000-1.030) Urine Protein Negative (Negative) Urine Glucose (UA) Negative (Negative) Urine Ketones Negative (Negative) Urine Blood Negative (Negative) Urine Nitrite Negative (Negative) Urine Bilirubin Negative (Negative) Urine Urobilinogen Negative (Negative) Ur Leukocyte Esterase Negative (Negative) POC Stool Occult Blood Negative (Negative) Lyme Disease IgG Ab (Negative) Lyme Disease IgM Ab (Negative) 04/24/18 04/24/18 04/24/18 Range/Units 19:08 19:08 19:08 WBC (4.8-10.8) K/uL RBC (4.2-5.4) M/uL Hgb (12.0-16.0) g/dL Hct (37-47) % MCV (80-100) fL MCH (25-34) pg MCHC (32-36) g/dL RDW Std Deviation (36.4-46.3) fL RDW Coeff of Ysabel (11.5-14.5) % Plt Count (130-400) K/uL MPV (7.4-10.4) fL Immature Gran % (Auto) % Neut % (Auto) % Lymph % (Auto) % Lamb % (Auto) % Eos % (Auto) % Baso % (Auto) % Immature Gran # (Auto) (0.00-0.02) K/uL Neut # (Auto) (1.4-6.5) K/uL Lymph # (Auto) (1.2-3.4) K/uL Lamb # (Auto) (0.11-0.59) K/uL Eos # (Auto) (0-0.5) K/uL Baso # (Auto) (0-0.2) K/uL Hypersegmented Neuts Macrocytosis PT 10.2 (9.0-12.0) Seconds INR 1.0 (0.9-1.1) APTT (21.0-31.0) Seconds PTT Ratio Sodium 136 (136-145) mmol/L Potassium 3.9 (3.5-5.1) mmol/L Chloride 106 (98-107) mmol/L Carbon Dioxide 25 (21-32) mmol/L Anion Gap 5.0 (3-11) BUN 23 H (7-18) mg/dl Creatinine 1.19 (0.6-1.2) mg/dl Est Cr Clr Drug Dosing 43.9 ml/min Est GFR ( Amer) 57.1 Est GFR (Non-Af Amer) 49.2 BUN/Creatinine Ratio 19.6 (10-20) Glucose 84 (70-99) mg/dl Calcium 8.2 L (8.5-10.1) mg/dl Magnesium 2.2 (1.8-2.4) mg/dl Total Bilirubin 0.4 (0.2-1) mg/dl Direct Bilirubin 0.1 (0-0.2) mg/dl AST 29 (15-37) U/L ALT 25 (12-78) U/L Alkaline Phosphatase 115 (45-117) U/L Troponin I < 0.015 (0-0.045) ng/ml NT-Pro-B Natriuret Pep 115 (0-900) pg/ml Total Protein 7.1 (6.4-8.2) gm/dl Albumin 3.5 (3.4-5.0) gm/dl Globulin 3.6 (2.5-4.0) gm/dl Albumin/Globulin Ratio 1.0 (0.9-2) Lipase 92 (73-393) U/L Urine Color Urine Appearance (Clear) Urine pH (4.5-7.5) Ur Specific [place] (1.000-1.030) Urine Protein (Negative) Urine Glucose (UA) (Negative) Urine Ketones (Negative) Urine Blood (Negative) Urine Nitrite (Negative) Urine Bilirubin (Negative) Urine Urobilinogen (Negative) Ur Leukocyte Esterase (Negative) POC Stool Occult Blood (Negative) Lyme Disease IgG Ab Negative (Negative) Lyme Disease IgM Ab Negative (Negative) 04/24/18 Range/Units 19:08 WBC 4.73 L (4.8-10.8) K/uL RBC 2.95 L (4.2-5.4) M/uL Hgb 11.5 L (12.0-16.0) g/dL Hct 34.9 L (37-47) % MCV 118.3 H (80-100) fL MCH 39.0 H (25-34) pg MCHC 33.0 (32-36) g/dL RDW Std Deviation 57.7 H (36.4-46.3) fL RDW Coeff of Ysabel 13.4 (11.5-14.5) % Plt Count 395 (130-400) K/uL MPV 9.4 (7.4-10.4) fL Immature Gran % (Auto) 0.2 % Neut % (Auto) 72.8 % Lymph % (Auto) 13.3 % Lamb % (Auto) 10.6 % Eos % (Auto) 2.3 % Baso % (Auto) 0.8 % Immature Gran # (Auto) 0.01 (0.00-0.02) K/uL Neut # (Auto) 3.44 (1.4-6.5) K/uL Lymph # (Auto) 0.63 L (1.2-3.4) K/uL Lamb # (Auto) 0.50 (0.11-0.59) K/uL Eos # (Auto) 0.11 (0-0.5) K/uL Baso # (Auto) 0.04 (0-0.2) K/uL Hypersegmented Neuts 2+ Macrocytosis Present PT (9.0-12.0) Seconds INR (0.9-1.1) APTT (21.0-31.0) Seconds PTT Ratio Sodium (136-145) mmol/L Potassium (3.5-5.1) mmol/L Chloride (98-107) mmol/L Carbon Dioxide (21-32) mmol/L Anion Gap (3-11) BUN (7-18) mg/dl Creatinine (0.6-1.2) mg/dl Est Cr Clr Drug Dosing ml/min Est GFR ( Amer) Est GFR (Non-Af Amer) BUN/Creatinine Ratio (10-20) Glucose (70-99) mg/dl Calcium (8.5-10.1) mg/dl Magnesium (1.8-2.4) mg/dl Total Bilirubin (0.2-1) mg/dl Direct Bilirubin (0-0.2) mg/dl AST (15-37) U/L ALT (12-78) U/L Alkaline Phosphatase (45-117) U/L Troponin I (0-0.045) ng/ml NT-Pro-B Natriuret Pep (0-900) pg/ml Total Protein (6.4-8.2) gm/dl Albumin (3.4-5.0) gm/dl Globulin (2.5-4.0) gm/dl Albumin/Globulin Ratio (0.9-2) Lipase (73-393) U/L Urine Color Urine Appearance (Clear) Urine pH (4.5-7.5) Ur Specific [place] (1.000-1.030) Urine Protein (Negative) Urine Glucose (UA) (Negative) Urine Ketones (Negative) Urine Blood (Negative) Urine Nitrite (Negative) Urine Bilirubin (Negative) Urine Urobilinogen (Negative) Ur Leukocyte Esterase (Negative) POC Stool Occult Blood (Negative) Lyme Disease IgG Ab (Negative) Lyme Disease IgM Ab (Negative) Diagnostic Findings CT OF THE ABDOMEN AND PELVIS WITH CONTRAST CLINICAL HISTORY: abdominal pain, black stool. History of colon cancer. COMPARISON STUDY: CT of the abdomen and pelvis May 14, 2017. Right upper quadrant ultrasound May 14, 2017. TECHNIQUE: Following IV administration of 93 mL of Optiray-320, axial images of the abdomen and pelvis were obtained from the lung bases to the proximal femurs. Images were reviewed in the axial, sagittal, and coronal planes. IV contrast was administered without complication. Automated exposure control was utilized for the study. A dose lowering technique was utilized adhering to the principles of ALARA. CT DOSE: 311.98 mGy.cm FINDINGS: There is a possible small segmental pulmonary embolus within a right lower lobe pulmonary artery on image 11 of 376. No pneumatosis, free air or portal venous gas is present. The liver, spleen, adrenal glands, left kidney and pancreas are normal. The patient is status post right hemicolectomy. There has been interval development of severe right hydroureteronephrosis with delayed right nephrogram due to obstruction of the right ureter by a conglomerate retroperitoneal mass that measures approximately 6.3 x 4.3 cm. This was not present on CT of May 14, 2017. This encases the aortic bifurcation. There is possible thrombus within the IVC at this level. There is no evidence for a bowel obstruction. There are prominent collaterals along the bladder wall. There are also suspected prominent epidural veins within the lumbar spine. No suspicious osseous lesions are present. There is no pneumatosis , free air or portal venous gas. IMPRESSION: 1. Interval development of a conglomerate 6.3 x 4.3 cm retroperitoneal mass since CT of May 14, 2017. This encases the aortic bifurcation and the IVC with suspected extensive deep thrombus within the IVC and right common iliac vein. This results in narrowing of the right ureter with resultant severe right hydroureteronephrosis. Given the clinical history, metastatic disease is favored. 2. Suspected small segmental pulmonary embolus within the right lower lobe. A PE protocol CT of the chest be obtained. 3. No bowel obstruction. Status post right hemicolectomy. 4. Suspected prominent epidural collaterals within the lumbar spine. Epidural tumor could appear similar but is considered less likely. CT ANGIOGRAPHY OF THE CHEST, PULMONARY EMBOLUS PROTOCOL CLINICAL HISTORY: Possible pulmonary embolus. COMPARISON STUDY: Chest CT May 13, 2014. TECHNIQUE: Following IV administration of 98 mL of Optiray-320, helical axial images of the chest were obtained utilizing the pulmonary embolus protocol. Maximal intensity projections and sagittal and coronal reformats were viewed on an independent 3D workstation. IV contrast was administered without complication. Automated exposure control was utilized for the study. A dose lowering technique was utilized adhering to the principles of ALARA. CT DOSE: 261.28 mGy.cm FINDINGS: There is a small segmental pulmonary embolus within the posterior basilar segment of the right lower lobe shown best on axial image 105 of 306. No additional pulmonary emboli are identified identified. A right internal jugular [id number]-u-Obke is in place. There is no thoracic or dissection. No enlarged thoracic lymph nodes are present. There is moderate emphysema. Central airways are patent. There is no consolidation to suggest pneumonia. No suspicious osseous lesions are noted. Visualized portions of the upper abdomen again demonstrate severe right hydronephrosis which is better depicted on the abdominal CT performed earlier today. There is a delayed right nephrogram. IMPRESSION: 1. Small segmental pulmonary embolus within the posterior basilar segment of the right lower lobe. 2. Moderate emphysema. 3. Severe right hydronephrosis with delayed right nephrogram better depicted on the CT of the abdomen and pelvis performed earlier today. _ (1) Pulmonary embolism Acute cor pulmonale presence: without acute cor pulmonale Chronicity: acute Pulmonary embolism type: unspecified Qualified Code(s): I26.99 - Other pulmonary embolism without acute cor pulmonale
--- NOTE | 2018-04-25 17:04 | Oncology Consultation ---
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 She was followed by observation after surgery. She is admitted with RLL Pulmonary embolism, and retroperitoneal mass encasing aortic bifurcation and IVC with suspected thrombosis in IVC and right common iliac vein and severe right hydronephrosis. I discussed the CT scan findings with the patient and that given her history that the the findings are suspicious for metastasis recommend check CEA and chromogranin A recommend urology consult for severe right hydronephrosis headaches - recommend check MRI brain recommend continue heparin drip for PE and consult vascular concerning IVC thrombosis check venous doppler of lower extremities upon discharge would recommend teaching for lovenox 1mg/kg SC Q12. monitor for any bleeding symptoms recommend consultation at tertiary center for evaluation with surgical oncology and GI oncologist to evaluate for biopsy to confirm metastatic malignancy and to evaluate her treatment options as to whether she would be a candidate for cytoreductive surgery with HIPEC. and chemotherapy options clinical trial options. If she is not a candidate for those options, 5FU/LV based chemotherapy like she had in the past would be reasonable to consider. gallium 68 DOTATATE PET scan can be considered outpatient. I called [facility] to discuss with Dr Ld Post since she was seen there previously but he was not available but left message for covering physician Dr Daniels to call me to discuss. support provided thank you for consult reason for consult: retroperitoneal mass, prior history of cecal mass with biopsy showing adenocarcinoma and high grade neuroendocrine carcinoma s/p neoadjuvant FOLFOX and right hemicolectomy in the past History of Present Illness Attending Physician: Rahat Pacheco MD HPI:63 year old female with history of cecal mass had biopsy at that time that showed adenocarcinoma. She was found to be unresectable upfront and underwent neoadjuvant chemotherapy with mFOLFOX6 x 5 cycles, oxaliplatin was discontinued due to liver injury, then she continued 5FU/LV x 7 cycles. She underwent right hemicolectomy and pathology showed high grade neuroendocrine carcinoma, pT3-4 pN1 She was followed by observation She is admitted with abd pain and swelling of her legs. she states she had noticed some nausea and urinary frequency for a few week. She had some dyspnea on exertion this week and states that she felt this while shoveling snow. She also noticed frequent headaches recently. CT abd and pelvis showed conglomerate 6.3x4.3 cm retroperitoneal mass encasing the aortic bifurcation and IVC with suspected extensive deep thrombus within the IVC and right common iliac vein and narrowing of right ureter with severe right hydronephrosis concerning for metastatic disease given her history.Suspected prominent epidural collaterals within the lumbar spine. Epidural tumor could appear similar but is considered less likely. Also suspected PE on CT abd within RLL and chest chest PE protocol showing RLL PE. no bowel obstruction. she is on heparin drip she has a history of CELESTE 2 positive Essential thrombocytosis and has been on hydrea and aspirin but states that she had stopped her baby aspirin for about 3 weeks due to stomach upset she states that she was taking pepto bismol and she had noticed black stool came to ER due to these symptoms Allergies Allergy/AdvReac Type Severity Reaction Status Date / Time No Known Allergies Allergy Verified 04/24/18 18:04 Home Medications Home Medications Medication Instructions Recorded Confirmed Type Dulera 2 puff INHALATION BID 04/24/18 04/24/18 History albuterol sulfate [ProAir HFA] 2 puff INHALATION Q6H PRN 04/24/18 04/24/18 History bismuth subsalicylate 524 mg PO QID PRN 04/24/18 04/24/18 History [Pepto-Bismol] calcium carbonate [Tums] 300 mg PO DIRECTED PRN 04/24/18 04/24/18 History hydroxyurea 500 mg PO BID 04/24/18 04/24/18 History lorazepam 0.5 mg PO BID PRN 04/24/18 04/24/18 History paroxetine HCl 30 mg PO QAM 04/24/18 04/24/18 History tiotropium bromide [Spiriva 2 puff INHALATION QAM 04/24/18 04/24/18 History Respimat] Patient History Medical History Thrombocytosis Colon cancer (Chronic) COPD (chronic obstructive pulmonary disease) Surgical History History of partial surgical removal of colon Social History marital status: Current Living Situation: Spouse Other Information That Helps Us Care for You: No Feels Safe at Home: Yes Safety Concerns: Feels Safe At This Time Smoking Status: Former smoker Do You Dip or Chew Tobacco: No Second Hand Exposure: No Tobacco Cessation Education Requested by Patient: No Hx Alcohol Use: Yes Alcohol type: beer Alcohol Intake Frequency: a few times a month Hx Substance Use: No Beliefs That Will Affect Care: None Communication Ability: Effective Review of Systems as stated per HPI otherwise negative Physical Exam 2 Vital Signs (Past 24 Hours): Last Vital Signs Temp 37.0 C 04/25/18 15:53 Pulse 67 04/25/18 15:53 Resp 18 04/25/18 15:53 BP 144/80 H 04/25/18 15:53 Pulse Ox 96 04/25/18 15:53 Gen: awake and alert, well developed well nourished female NAD HEENT: Anicteric, no pallor neck: supple no palpable adenopathy Lungs: CTAB no wheezes rales or rhonchi CV: S1 S2 RRR no Murmurs abd: +BS soft ND, mild epigastric and left sided tenderness no guarding or rebound Ext: 1+Edema bilaterally, R>L neuro: alert and oriented x3 grossly nonfocal Results & Data Laboratory Results cbc w/ diff CMP reviewed
--- NOTE | 2018-04-25 18:16 | Hospitalist Progress Note ---
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 IVC Thrombus and Small segmental PE In setting of H/O Essential thrombocytosis and high grade neuroendocrine carcinoma --CTA: Small segmental pulmonary embolus within the posterior basilar segment of the right lower lobe. Moderate emphysema. Severe right hydronephrosis with delayed right nephrogram better depicted on the CT of the abdomen and pelvis. --Continue IV heparin FOBT Negative No bleeding issues Check Venous Doppler Consulted Vascular for possible IVC filter placement Retroperitoneal mass: H/O high grade neuroendocrine carcinoma of appendix S/P surgery with hemicolectomy and Chemotherapy Followed with [facility]: PET scan done in 06/2007 and 10/[address] abd suggestive of mass encases the aortic bifurcation and the IVC metastatic disease is favored. Appreciate Surgery Input--No immediate surgical intervention recommended at this time. Needs FU with Dr. Cheng (Colorectal surgeon, [facility]) Appreciate Oncology Input Check MRI Brain to R/O metastasis Severe right hydroureteronephrosis secondary to above mass No problems with Urination Monitor renal Function Urology consulted H/O COPD H/O Tobacco use in past No signs of exacerbation Continue home inhalers Depression/Anxiety Continue Paxil, Ativan H/O Essential thrombocytosis monitor platelets Continue hydroxyurea DVT Px: on IV heparin Code Status: Full Code Disposition: To be determined Subjective Patient is seen and examined at bedside Reports mild headache, leg swelling R>L, mild abdominal pain Denies chest pain, dyspnea Offers no other complaints Family at bedside Physical Exam 2 Vital Signs (Past 24 Hours): Last Vital Signs Temp 37.0 C 04/25/18 15:53 Pulse 67 04/25/18 15:53 Resp 18 04/25/18 15:53 BP 144/80 H 04/25/18 15:53 Pulse Ox 96 04/25/18 15:53 Physical Exam: Physical Exam: Vitals signs as noted above General Appearance:Moderately built and nourished, no apparent distress Head: normocephalic, Atraumatic Eyes: normal inspection, EOMI Neck: supple, Trachea midline Respiratory/Chest: Normal breath sounds, CTA, Port on right side of chest Cardiovascular: S1, S2, No murmur Abdomen/GI:Soft, mild RLQ and LLQ tender, Bowel sounds present Extremities/Musculoskelatal:normal inspection, B/L LE edema R>L Neurologic/Psych:AAOX3, grossly no focal neurological deficits Skin: normal color, warm Results & Data Laboratory Results Short CBC 04/24/18 04/25/18 Range/Units 19:08 05:12 WBC 4.73 L 4.26 L (4.8-10.8) K/uL Hgb 11.5 L 11.6 L (12.0-16.0) g/dL Hct 34.9 L 35.2 L (37-47) % Plt Count 395 360 (130-400) K/uL BMP 04/24/18 04/25/18 19:08 05:12 Sodium 136 139 Potassium 3.9 3.9 Chloride 106 108 H Carbon Dioxide 25 27 BUN 23 H 18 Creatinine 1.19 1.17 Glucose 84 84 Calcium 8.2 L 8.1 L Cardiac Enzymes 04/24/18 Range/Units 19:08 Troponin I < 0.015 (0-0.045) ng/ml Liver Function 04/24/18 Range/Units 19:08 Total Bilirubin 0.4 (0.2-1) mg/dl Direct Bilirubin 0.1 (0-0.2) mg/dl AST 29 (15-37) U/L ALT 25 (12-78) U/L Alkaline Phosphatase 115 (45-117) U/L Albumin 3.5 (3.4-5.0) gm/dl Urine 04/24/18 Range/Units 19:20 Urine Color Yellow Urine Appearance Clear (Clear) Urine pH 5.0 (4.5-7.5) Ur Specific Aston 1.015 (1.000-1.030) Urine Protein Negative (Negative) Urine Glucose (UA) Negative (Negative) _ (1) Abdominal mass Abdominal location:
[2018-04-25 21:10] LABS: Partial Thromboplastin Ratio 2.3
[2018-04-25 21:14] LABS: Partial Thromboplastin Time 58.7 Seconds (21.0-31.0)
[2018-04-25] MEDS ORDERED: HEPARIN 100 UNIT/ML 5ML FLUSH FLUSH PRN (23:00)
--- NOTE | 2018-04-25 23:14 | Consultation Report ---
DATE OF CONSULTATION: 04/25/2018 REASON FOR THE CONSULT: Right hydronephrosis. 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 The patient had been followed had a negative PET scan apparently in October but more recently had been having some leg swelling, some nausea and some dyspnea on exertion this week. She also has been having frequent headaches. She came to the hospital when she also saw some black tarry stools and she was having some mild stomach upset. On the CAT scan, she had a 6.3 x 4.3 retroperitoneal mass encasing the aortic bifurcation and the inferior vena cava with suspect of extensive DVT with an IVC and common iliac vein and she also has narrowing of the right ureter with severe right hydronephrosis. Of note, the patient denies any flank pain. Her urine is clear. She has had no history of dysuria to my questioning, no history of bladder infection. Her creatinine is within a normal range at 1.17, although this is up from a year ago when it was 0.72. Again, urine is without any evidence of pyuria or bacteriuria or hematuria. I did examine the patient and she did not have any flank pain. PHYSICAL EXAMINATION: HEENT is unremarkable. She has no respiratory distress at this time at bed rest. Abdomen was soft. Her skin is normal. HEENT is unremarkable. Neurologically, she is alert and oriented without any focal sensory deficits. Extremities are remarkable for bilateral lower legs, right greater than left swelling. MEDICATIONS: Please review her history for medications. ALLERGIES: She has no known drug allergies. REVIEW OF SYSTEMS: Please review the admitting history and physical for review of systems. ASSESSMENT: Right hydronephrosis. RECOMMENDATIONS: Given DVT, I do not think she should have anesthesia for stent placement, possibly the stent could be placed under sedation, but there is no indication. The patient has no flank pain to percussion and no obvious evidence of infection and her creatinine is within normal range. Would monitor the creatinine and certainly if she needs a renal function for chemotherapy, consideration could be given attempted to place a stent, but the stent, also could be subject to extrinsic compression and may not drain properly and then she would need a port. In addition, the stent could cause discomfort, which could impair quality of life. Obviously, she would have fever and suspected sepsis from obstruction, we would need to place a stent and/or percutaneous nephrostomy. Again, a percutaneous nephrostomy would impair her quality of life. Given the fact that I do not think that this is causing her pain as it has been slow in onset, again, would not aggressively pursue stent placement at this time, would be glad to follow this patient, creatinine, and urinalysis and symptoms, and certainly would place a stent for palliative purposes. It is unclear, where she is headed with regard to future chemotherapy given the note from oncology tonight and certainly would defer to any request they had to maximize renal function with possible stent placement. At a future time, assuming that the risk of anesthesia and/or placing the patient in dorsal lithotomy position for stent placement would not exceed any benefit placing a stent. We will be glad to follow along for the time being. If we can be of any help, please reconsult us. MTDD
[2018-04-26] MEDS: SODIUM CHLORIDE 0.9% 1000ML 1,000 ML IV SCH (01:59)
[2018-04-26] MEDS ORDERED: GADOBUTROL 65ML VIAL IV PRN (03:32)
[2018-04-26 04:43] VITALS: O2SAT 96
[2018-04-26 04:52] LABS: Basophils # (auto) 0.06 K/uL (0-0.2); Basophils % (auto) 1.5 %; Eosinophils % (auto) 2.4 %; Hemoglobin 11.2 g/dL (12.0-16.0); Immature Granulocytes # (auto) 0.01 K/uL (0.00-0.02); Immature Granulocytes % (auto) 0.2 %; Lymphocytes # (auto) 0.49 K/uL (1.2-3.4); Lymphocytes % (auto) 11.9 %; Mean Corpuscular Hgb Conc 32.9 g/dL (32-36); Mean Corpuscular Volume 119.3 fL (80-100); Mean Platelet Volume 9.2 fL (7.4-10.4); Monocytes # (auto) 0.47 K/uL (0.11-0.59); Monocytes % (auto) 11.4 %; Neutrophils % (auto) 72.6 %; Platelet Count 332 K/uL (130-400); RDW Coefficient of Variation 13.4 % (11.5-14.5); RDW Standard Deviation 58.3 fL (36.4-46.3); Red Blood Count 2.85 M/uL (4.2-5.4); White Blood Count 4.13 K/uL (4.8-10.8)
[2018-04-26 05:11] LABS: Macrocytosis Present
[2018-04-26 05:14] LABS: Partial Thromboplastin Ratio 2.8
[2018-04-26 05:22] LABS: BUN Creatinine Ratio 11.5 (10-20); Calcium 7.5 mg/dl (8.5-10.1); Creatinine Clr Calc Pharmacy 53.6 ml/min; Est GFR (African American) 73.1; Potassium 3.5 mmol/L (3.5-5.1)
[2018-04-26 05:23] LABS: Partial Thromboplastin Time 72.8 Seconds (21.0-31.0)
--- NOTE | 2018-04-26 06:32 | Ultrasound Report ---
US venous doppler LE BI HISTORY: Pain. Edema. DVT COMPARISON STUDY: None. FINDINGS: There is normal compressibility, flow, and augmentation within the bilateral lower extremit y deep venous systems. IMPRESSION: No DVT within the right or left lower extremity. The above report was generated using voice recognition software. It may contain grammatical, syntax or spelling errors. Electronically signed by: David Bass M.D. 04/26/2018 6:31 AM
--- NOTE | 2018-04-26 06:35 | Magnetic Resonance Report ---
MR brain wo/w con CLINICAL HISTORY: R/O metastasis COMPARISON STUDY: No previous studies for comparison. TECHNIQUE: Utilizing a 1.5 Katya magnet and dedicated coil, multiplanar, multiecho imaging of the br ain was performed pre and postcontrast administration. IV administration of 6.7 mL of Gadavist contr ast was uneventful. FINDINGS: Diffusion images are considered negative for an acute ischemic insult. Several small foci o f increased signal within the periventricular and deep white matter regions consistent with chronic s mall vessel change. Ventricular system is midline. There is no evidence for an enhancing lesion. IMPRESSION: Negative MRI of the brain for age The above report was generated using voice recognition software. It may contain grammatical, syntax or spelling errors. Electronically signed by: David Bass M.D. 04/26/2018 6:34 AM
[2018-04-26 06:54] VITALS: TEMP 98.2
[2018-04-26] MEDS: TIOTROPIUM BROMIDE 5 PUFF/90 MCG INH INH SCH (07:34)
[2018-04-26] MEDS: BUDESONIDE/FORMOTEROL FUMARATE 160/4.5 60 PUFFS/INHALER INH SCH (07:35)
--- NOTE | 2018-04-26 10:17 | Consultation ---
Date of Consultation April 26, 2018 Assessment & Plan (1) IVC thrombosis: Pt with DVT and PE, no contraindications to AC. Pt discussed with Dr Vang. Would not recommend IVC filter at this time. Recommend treatment with AC for DVT/PE. Please call if needed. Patient was seen, examined, and chart reviewed. Agree with exam and treatment plan of the Vascular PA. Present on Admission?: Yes History of Present Illness Reason for Consultation: IVC thrombus, PE Attending Physician: Rahat Pacheco MD History of Present Illness 63 yo f with multiple medical problems, including essential thrombocytosis, colon ca, COPD, admitted with low abd pain and found to have metastatic mass encasing her IVC and aorta and compressing her R ureter, seen in consultation today for possible IVC filter. Pt also noted to have PE. No hx of previous DVT per pt. Did not take AC prior to this admission. Has hx of partial colectomy d/t colon ca. Denies SOB, chest pain, GORDON, fever, recent illness, N/V , rest pain, claudication, edema, other complaints. Allergies Allergy/AdvReac Type Severity Reaction Status Date / Time No Known Allergies Allergy Verified 04/24/18 18:04 Home Medications Home Medications Medication Instructions Recorded Confirmed Type Dulera 2 puff INHALATION BID 04/24/18 04/24/18 History albuterol sulfate [ProAir HFA] 2 puff INHALATION Q6H PRN 04/24/18 04/24/18 History bismuth subsalicylate 524 mg PO QID PRN 04/24/18 04/24/18 History [Pepto-Bismol] calcium carbonate [Tums] 300 mg PO DIRECTED PRN 04/24/18 04/24/18 History hydroxyurea 500 mg PO BID 04/24/18 04/24/18 History lorazepam 0.5 mg PO BID PRN 04/24/18 04/24/18 History paroxetine HCl 30 mg PO QAM 04/24/18 04/24/18 History tiotropium bromide 2 puff INHALATION QAM 04/24/18 04/24/18 History Patient History Medical History Thrombocytosis Colon cancer (Chronic) COPD (chronic obstructive pulmonary disease) Surgical History History of partial surgical removal of colon Social History marital status: Current Living Situation: Spouse Other Information That Helps Us Care for You: No Feels Safe at Home: Yes Safety Concerns: Feels Safe At This Time Smoking Status: Former smoker Do You Dip or Chew Tobacco: No Second Hand Exposure: No Tobacco Cessation Education Requested by Patient: No Hx Alcohol Use: Yes Alcohol type: beer Alcohol Intake Frequency: a few times a month Hx Substance Use: No Beliefs That Will Affect Care: None Preferred Language: Divehi Review of Systems Constitutional: no fever, no chills, no sweats, no fatigue, no malaise and no weight loss Eyes: no blind spots and no problem reported Ear, Nose, Mouth, Throat: no hearing loss and no sore throat Respiratory: no cough, no dyspnea, no dyspnea on exertion and no hemoptysis Cardiovascular: no chest pain, no palpitations, no syncope, no claudication and no problem reported Gastrointestinal: + abdominal pain (improved); no early satiety, no nausea, no vomiting, no cramping, no change in bowel habits, no diarrhea/loose stools and no blood in stools Musculoskeletal: no back pain, no joint pain, no swelling and no muscle weakness Integumentary: no rash, no non-healing lesions, no skin ulcer, no wounds and no erythema Neurologic: no localized weakness, no generalized weakness, no paralysis, no loss of sensation, no tingling, no numbness, no paresthesia, no seizure-like activity, no syncope, no headache(s) and no confusion Psychiatric: as per Subjective / HPI Hematologic / Lymphatic: no easy bleeding, no easy bruising, no coagulopathy, no night sweats and no unexplained weight loss Physical Exam 2 Vital Signs (Past 24 Hours): Last Vital Signs Temp 36.8 C 04/26/18 06:54 Pulse 81 04/26/18 06:54 Resp 18 04/26/18 06:54 BP 142/99 H 04/26/18 06:54 Pulse Ox 96 04/26/18 06:54 Constitutional: WD/WN, vitals as above well developed, well nourished, + obese, healthy appearing, well groomed, cooperative and comfortable; not in distress Eyes: PERRL, conjunctivae normal, anicteric sclerae EOM intact bilaterally ENMT: Ears: no hearing impairment Nose: no nasal discharge Neck: trachea midline, no thyromegaly no tracheal deviation, no neck crepitus and neck nontender Respiratory: normal respiratory effort, lungs clear to auscultation able to speak in complete sentences; does not use accessory muscles, no cough, not tachypneic and no audible wheezes Auscultation: lungs clear to auscultation bilaterally and + diminished lung sounds; no rhonchi and no wheezes Cardiovascular: RRR, no murmur, no edema Heart Sounds: no gallop Vessels : femoral pulses present, posterior tibial pulses present, dorsalis pedis pulses present, brachial pulses present and radial pulses present; no carotid bruit, no femoral bruit and + abnormal peripheral pulses Extremities: normal capillary refill; no edema Chest (Breasts): Chest: normal inspection of chest Gastrointestinal (Abdomen): normal bowel sounds, soft, nontender, no hepatosplenomegaly Inspection/Auscultation: abdomen normal to inspection and normal bowel sounds; abdomen not distended Percussion/Palpation: abdomen soft ; abdomen nontender, no guarding and abdomen not rigid Musculoskeletal: no cyanosis or clubbing, extremities motor strength 5/5 Head/Neck/Chest: normocephalic, head atraumatic and neck supple Extremities: extremities normal to inspection and strength 5/5 throughout; full ROM of extremities and normal strength Skin: no rashes, warm and dry normal turgor; no rashes, no lesions, no ulcers and no induration Neurologic: moves all extremities and awake; no focal motor deficits and not confused Speech / Cognition: no expressive aphasia and no receptive aphasia Motor/Sensory: no tremor and no sensory deficit Cranial Nerves: EOM intact bilaterally and normal facial strength Gait: not gait assisted Psychiatric: Orientation: alert, oriented x 3, oriented to person, oriented to place, oriented to time and cooperative Apperance: appropriately dressed, appropriately groomed and appeared stated age Affect: euthymic affect Thought Process: goal directed thought process, linear/logical thought process and clear/coherent thought process Cognition: recent memory grossly intact, remote memory grossly intact, attention grossly intact and language grossly intact Estimated Intelligence: average estimated intelligence Lymphatic: no lymphedema
[2018-04-26] MEDS: HYDROXYUREA 500 MG CAP PO SCH (11:05)
[2018-04-26] MEDS: PARoxetine HCl 20 MG TAB PO SCH (11:05)
--- NOTE | 2018-04-26 14:04 | Hospitalist Progress Note ---
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 IVC Thrombus and Small segmental PE In setting of H/O Essential thrombocytosis and high grade neuroendocrine carcinoma --CTA: Small segmental pulmonary embolus within the posterior basilar segment of the right lower lobe. Moderate emphysema. Severe right hydronephrosis with delayed right nephrogram better depicted on the CT of the abdomen and pelvis. --Continue IV heparin FOBT Negative No bleeding issues Venous Doppler:No DVT within the right or left lower extremity. Consulted Vascular for possible IVC filter placement-- No indication for IVC filter currently Plan to continue IV heparin Retroperitoneal mass: H/O high grade neuroendocrine carcinoma of appendix S/P surgery with hemicolectomy and Chemotherapy Followed with [facility]: PET scan done in 06/2007 and 10/[address] abd suggestive of mass encases the aortic bifurcation and the IVC metastatic disease is favored. Appreciate Surgery Input--No immediate surgical intervention recommended at this time. Needs FU with Dr. Cheng (Colorectal surgeon, [facility]) Appreciate Oncology Input MRI Brain: Negative MRI of the brain for age Discussed with (discussed with [facility])--recommends Biopsy of the retroperitoneal mass by IR Patient is accepted at [facility] for further management Severe right hydroureteronephrosis secondary to above mass No problems with Urination Monitor renal Function Urology consulted--No plan for stenting at this time H/O COPD H/O Tobacco use in past No signs of exacerbation Continue home inhalers Depression/Anxiety Continue Paxil, Ativan H/O Essential thrombocytosis monitor platelets Continue hydroxyurea DVT Px: on IV heparin Code Status: Full Code Disposition: Plan to Transfer to [facility] for suther management Accepting Physician: Dr.Aadil Silva Subjective Patient is seen and examined at bedside Leg swelling is better Mild intermittent abdominal pain No new complaints Discussed with Oncology -- Needs IR to do biopsy to the retroperitoneal mass Denies chest pain, dyspnea Physical Exam 2 Vital Signs (Past 24 Hours): Last Vital Signs Temp 36.8 C 04/26/18 12:15 Pulse 82 04/26/18 12:15 Resp 16 04/26/18 12:15 BP 142/81 H 04/26/18 12:15 Pulse Ox 96 04/26/18 12:15 Physical Exam: Physical Exam: Vitals signs as noted above General Appearance:Moderately built and nourished, no apparent distress Head: normocephalic, Atraumatic Eyes: normal inspection, EOMI Neck: supple, Trachea midline Respiratory/Chest: Normal breath sounds, CTA, Port on right side of chest Cardiovascular: S1, S2, No murmur Abdomen/GI:Soft, mild RLQ and LLQ tender, Bowel sounds present Extremities/Musculoskelatal:normal inspection, B/L LE edema R>L Neurologic/Psych:AAOX3, grossly no focal neurological deficits Skin: normal color, warm Results & Data Laboratory Results Short CBC 04/26/18 Range/Units 04:40 WBC 4.13 L (4.8-10.8) K/uL Hgb 11.2 L (12.0-16.0) g/dL Hct 34.0 L (37-47) % Plt Count 332 (130-400) K/uL BMP 04/26/18 04:40 Sodium 141 Potassium 3.5 Chloride 111 H Carbon Dioxide 25 BUN 11 Creatinine 0.97 Glucose 85 Calcium 7.5 L Diagnostic Findings MRI Brain: Negative MRI of the brain for age _ (1) Abdominal mass Abdominal location:
--- NOTE | 2018-04-26 14:22 | Discharge Summary ---
Date of Service April 26, 2018 Admission HPI Per Admitting Provider CHIEF COMPLAINT: Abdominal discomfort and lower extremity edema. HISTORY OF PRESENT ILLNESS: This is a 63-year-old female with past medical history significant for COPD, moderate allergic rhinitis, essential thrombocytosis, history of tobacco abuse, history of depression, history of cecal adenocarcinoma, status post exploratory laparotomy and she was found to have unresectable disease, underwent ileal small bowel to transverse colon side to side anastomosis on 08/08/2016, status post neoadjuvant modified [id number] chemotherapy x5, then again after chemo status post right hemicolectomy in 03/2017. 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 She had another followup whole body PET scan in late 10/2017 and once again no metabolic disease was noted elsewhere and she was doing well with no symptoms. Because of dizziness, MRI scan done in 10/2017 which was also unremarkable. She comes because of abdominal discomfort and bloating in belly in the last few days and also noticed swelling in the lower extremity. She thinks she also had black stools yesterday and today, which prompted her to come to the ER. In the ER, CAT scan of the abdomen and pelvis was done which shows interval development of conglomerate of 6.3 x 4.3 retroperitoneal mass and this encases aortic bifurcation and IVC.Suspected, extensive deep thrombosis in IVC right common iliac vein. This results in narrowing of the right ureter with resultant severe right hydroureteronephrosis. Given the clinical history metastatic disease is suspected. Suspected prominent epidural collateral within the lumbar spine, epidural tumor could appear similar, but is considered less likely. CT of the chest was also done which showed small segmental pulmonary embolus in the right mid and posterior basilar segment of the right lower lobe. The patient is currently resting comfortable and hemoglobin stable. Abdominal pain is okay now. Denies any chest pain, no shortness of breath, no cough. Appetite is okay. She is sleeping okay. Ambulation is okay. No nausea, no vomiting. Normal bladder movements.Patient is aware of the CAT scan findings. Admission Exam Per Admitting Provider PHYSICAL EXAMINATION: GENERAL: The patient is of moderate build, not in acute distress. VITAL SIGNS: Temperature 36.5, pulse 64, respiratory rate 16, blood pressure 171/84, oxygen 90% room air. HEENT: No pallor, no icterus. Pupils equal, round, and reactive to light. NECK: No JVD, no neck masses, no carotid bruits. CARDIOVASCULAR: S1, S2 heard, regular rate and rhythm, no murmur, no gallop. RESPIRATORY SYSTEM: Normal AP diameter. No accessory muscle use. No wheezing, no crackles. ABDOMEN: Soft, bowel sounds present. Nontender. No distention. CENTRAL NERVOUS SYSTEM: Cranial nerves II-XII grossly intact. Nonfocal. EXTREMITIES: Lower extremity edema present, no erythema seen. Principal Diagnosis Discharge Information Discharge Diagnosis Retroperitoneal Mass, IVC Thrombus and Small segmental PE, Severe right hydroureteronephrosis Discharge Goals Decrease discomfort,Improve function,Improve disease control Discharge Activity Limitations Per instructions/follow-up Discharge Data Allergies Allergy/AdvReac Type Severity Reaction Status Date / Time No Known Allergies Allergy Verified 04/24/18 18:04 Consultations 04/24/18 21:48 ED Decision to Admit Stat 04/25/18 01:12 Consult Case Management - Discharge Planning Routine 04/25/18 08:00 Consult General Surgery Routine Consult Oncology Routine Consult Urology Routine 04/25/18 15:10 Consult Vascular Surgery Routine 04/26/18 13:44 Burn CD for patient Routine Procedures Performed Brain MRI: Negative MRI of the brain for age Venous Doppler: No DVT within the right or left lower extremity. CTA: 1. Small segmental pulmonary embolus within the posterior basilar segment of the right lower lobe. 2. Moderate emphysema. 3. Severe right hydronephrosis with delayed right nephrogram better depicted on the CT of the abdomen and pelvis performed earlier today. CT ABD: 1. Interval development of a conglomerate 6.3 x 4.3 cm retroperitoneal mass since CT of May 14, 2017. This encases the aortic bifurcation and the IVC with suspected extensive deep thrombus within the IVC and right common iliac vein. This results in narrowing of the right ureter with resultant severe right hydroureteronephrosis. Given the clinical history, metastatic disease is favored. 2. Suspected small segmental pulmonary embolus within the right lower lobe. A PE protocol CT of the chest be obtained. 3. No bowel obstruction. Status post right hemicolectomy. 4. Suspected prominent epidural collaterals within the lumbar spine. Epidural tumor could appear similar but is considered less likely. 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 IVC Thrombus and Small segmental PE In setting of H/O Essential thrombocytosis and high grade neuroendocrine carcinoma --CTA: Small segmental pulmonary embolus within the posterior basilar segment of the right lower lobe. Moderate emphysema. Severe right hydronephrosis with delayed right nephrogram better depicted on the CT of the abdomen and pelvis. --Continue IV heparin FOBT Negative No bleeding issues Venous Doppler:No DVT within the right or left lower extremity. Consulted Vascular for possible IVC filter placement-- No indication for IVC filter currently Plan to continue IV heparin Retroperitoneal mass: H/O high grade neuroendocrine carcinoma of appendix S/P surgery with hemicolectomy and Chemotherapy Followed with [facility]: PET scan done in 06/2007 and 10/[address] abd suggestive of mass encases the aortic bifurcation and the IVC metastatic disease is favored. Appreciate Surgery Input--No immediate surgical intervention recommended at this time. Needs FU with Dr. Cheng (Colorectal surgeon, [facility]) Appreciate Oncology Input MRI Brain: Negative MRI of the brain for age Chromogranin A Levels: Pending Carcinoembryonic A.9 Discussed with (discussed with [facility])--recommends Biopsy of the retroperitoneal mass by IR Patient is accepted at [facility] for further management Severe right hydroureteronephrosis secondary to above mass No problems with Urination Monitor renal Function Urology consulted--No plan for stenting at this time H/O COPD H/O Tobacco use in past No signs of exacerbation Continue home inhalers Depression/Anxiety Continue Paxil, Ativan H/O Essential thrombocytosis monitor platelets Continue hydroxyurea DVT Px: on IV heparin Code Status: Full Code Disposition: Plan to Transfer to [facility] for suther management Accepting Physician: Dr.Aadil Silva Total Time Total Time Spent Total Time Spent (In Minutes): 45 minutes Total Time Includes: Examination of the Patient, Discharge Planning, Medication Reconciliation, Communication With Other Providers and Other Discharge Plan Discharge Items Patient Disposition: Transfer Acute Care Hospital Reason For Visit: ABD DISCOMFORT, LOWER EXTREMITY SWELLING Discharge Diagnosis: Retroperitoneal Mass, IVC Thrombus and Small segmental PE , Severe right hydroureteronephrosis Discharge Goals: Decrease discomfort, Improve disease control and Improve function Activity: Per 'Additional Instructions' section Non-emergency contact: Primary Care Provider, Surgeon, Oncologist and Urologist Call non-emergency contact if: you have any medication questions, your symptoms worsen, your pain is not controlled, your pain is worsening, your pain is unusual for you, your pain is concerning for you and you have a fever Diet: Heart Healthy Addtl Provider Instructions: Follow up with Dr.Aadil Silva at [facility] for further management Follow up with your Surgeon , Oncologist, Urologist (Dr. Decker) as advised Seek immediate medical attention if your symptoms reoccur or worsen Prescriptions: Continue hydroxyurea 500 mg capsule 500 mg PO BID RF: 0 lorazepam 0.5 mg tablet 0.5 mg PO BID PRN (Reason: Anxiety) RF: 0 paroxetine HCl 20 mg tablet 30 mg PO QAM RF: 0 bismuth subsalicylate [Pepto-Bismol] 262 mg/15 mL Suspension 524 mg PO QID PRN (Reason: Indigestion) RF: 0 tiotropium bromide 2.5 mcg/actuation mist 2 puff Inhalation QAM RF: 0 calcium carbonate [Tums] 300 mg (750 mg) Tablet,Chewable 300 mg PO DIRECTED PRN (Reason: Indigestion) RF: 0 albuterol sulfate [ProAir HFA] 90 mcg/actuation Hfa Aerosol Inhaler 2 puff INHALATION Q6H PRN (Reason: Shortness Of Breath Or Wheezing) RF: 0 Dulera 100 mcg 2 puff Inhalation BID RF: 0 Stand-Alone Forms: [facility] Discharge Orders: Discharge Order (Routine); Ordered 04/26/18 Ordered By: Rahat Pacheco Admission Data Admit Date/Time: 04/24/18 23:20 Attending Provider: Rahat Pacheco Admit Provider: Satish Mensah Primary Care Provider: Pretty Norris Other Providers: Satish Mensah ; David Espitia ; Davina Huynh ; Ema Mendze ; Desean Cabrera ; Bryant Lugo ; Ivette Henderson ; Orlando Otero ; Davon Telles ; Catrina Dickerson ; Alexys Rawls ; Tamela Clifford ; Oscar Zimmerman ; Thomas Bassett Jr ; Sarah Kaufman ; Radha Duenas ; Fermín Chung ; aBbs Downs ; Kizzy Castanon ; Kenji Vang Service: Telemetry Other Pending Studies at Discharge: Yes Studies:: Chromogranin A levels
[2018-04-26 14:54] VITALS: BP 123/71; PULSE 66
--- NOTE | 2018-04-26 15:07 | Hematology/Oncology Prog Note ---
Date of Service April 26, 2018 Subjective Patient was rounded on at bedside. Physical Exam 2 Vital Signs (Past 24 Hours): Last Vital Signs Temp 36.8 C 04/26/18 14:46 Pulse 66 04/26/18 14:46 Resp 16 04/26/18 14:46 BP 123/71 04/26/18 14:46 Pulse Ox 96 04/26/18 14:46
== END 2018-04-26 15:20 | disposition short-term general hospital (02) | DRG 294 ==
LOC: ED 16:42 → 2S 23:20

== ENCOUNTER 2018-05-25 16:48 | Inpatient (IN) ==
[2018-05-25] MEDS ORDERED: ONDANSETRON INJ 2 MG/ML 2 ML VIAL IV STA (17:04)
[2018-05-25] MEDS ORDERED: SODIUM CHLORIDE 0.9% 1000ML 1,000 ML IV SCH (17:15)
[2018-05-25] MEDS: MoRPHine SULFATE 4 MG/ML 1 ML CARP\\VIAL IV PRN ×2 (17:22→20:01)
[2018-05-25 17:26] LABS: Hematocrit (blood only) 30.2 % (37-47); Hemoglobin 10.1 g/dL (12.0-16.0); Mean Corpuscular Hgb Conc 33.4 g/dL (32-36); Mean Corpuscular Volume 118.4 fL (80-100); Mean Platelet Volume 9.8 fL (7.4-10.4); Nucleated RBC # (auto) 0.07 K/uL (0-0); Nucleated RBC % (auto) 1.8 %; Platelet Count 165 K/uL (130-400); RDW Coefficient of Variation 12.9 % (11.5-14.5); RDW Standard Deviation 56.3 fL (36.4-46.3); Red Blood Count 2.55 M/uL (4.2-5.4); White Blood Count 3.85 K/uL (4.8-10.8)
[2018-05-25 17:39] LABS: Partial Thromboplastin Time 26.5 Seconds (21.0-31.0); Prothrombin Time 9.8 Seconds (9.0-12.0)
--- NOTE | 2018-05-25 17:44 | XRay Report ---
SINGLE VIEW CHEST CLINICAL HISTORY: Atypical chest pain. FINDINGS: An AP, portable, upright chest radiograph is compared to chest x-ray and chest CT dated 04/12. A right internal jugular central venous infusion port is unchanged from previous. The cardiom ediastinal silhouette is unremarkable. Emphysema and chronic interstitial thickening are similar to p revious. There is mild bibasilar atelectasis. No airspace consolidation or large pleural effusion is identified. No pneumothorax is seen. The skeletal structures are osteopenic. The bony thorax is gross ly intact. A catheter is partially visualized in the right upper quadrant of the abdomen. IMPRESSION: Emphysematous change with no acute cardiopulmonary abnormality. Electronically signed by: Willy Chahal M.D. 05/25/2018 5:42 PM
[2018-05-25 17:46] LABS: Alanine Aminotransferase 52 U/L (12-78); Albumin Level 3.1 gm/dl (3.4-5.0); Aspartate Aminotransferase 20 U/L (15-37); BUN Creatinine Ratio 14.8 (10-20); Blood Urea Nitrogen 14 mg/dl (7-18); C Reactive Protein 1.46 mg/dl (0-0.29); Carbon Dioxide 26 mmol/L (21-32); Chloride 110 mmol/L (98-107); Creatinine Clr Calc Pharmacy 54.6 ml/min; Est GFR (African American) 76.9; Est GFR (Non-African American) 66.3; Glucose 93 mg/dl (70-99); Potassium 4.1 mmol/L (3.5-5.1); Sodium 141 mmol/L (136-145)
[2018-05-25 17:51] LABS: Albumin Globulin Ratio 0.9 (0.9-2); Alkaline Phosphatase 326 U/L (45-117); Bilirubin,Total 0.2 mg/dl (0.2-1); Globulin 3.4 gm/dl (2.5-4.0); Total Protein 6.5 gm/dl (6.4-8.2); Troponin I < 0.015 ng/ml (0-0.045)
--- NOTE | 2018-05-25 18:02 | Emergency Department Note ---
Entered by May Chaves acting as a scribe for History of Present Illness General Chief complaint: Chest Pain Stated complaint: CHEST PAIN, LOWER BACK PAIN Source: patient History of Present Illness Onset (ago): hour(s) (0300 this morning) Location: chest, back (lower) and abdomen Radiation: back (lower) and abdomen Maximum Pain Intensity: 10 Quality: + other (chest pain) Exacerbated By: + other (lying down) Associated symptoms: + shortness of breath and + other (Positive bilateral leg swelling. Negative heart history, stress test, catheterization) The patient is a 63 year old female who presents to the Emergency Room with complaints of chest pain beginning at 0300 this morning. She states when she lies down, her pain goes through her abdomen and radiates to her lower back. She rates her chest pain as a 7/10 in severity and her back pain as a 10/10 in severity. She notes that lying down worsens her pain. Pt has bilateral leg swelling and some SOB but does not have a heart history, stress test, catheterization. Pt regularly takes Lovanox shots for blood clots in her pelvis. Home Medications Home Medications Medication Instructions Recorded Confirmed Type albuterol sulfate [ProAir HFA] 2 puff INHALATION Q6H PRN 04/24/18 05/25/18 History calcium carbonate [Tums] 300 mg PO DIRECTED PRN 04/24/18 05/25/18 History lorazepam 0.5 mg PO BID PRN 04/24/18 05/25/18 History paroxetine HCl 30 mg PO QAM 04/24/18 05/25/18 History allopurinol 300 mg PO QAM 05/25/18 05/25/18 History budesonide-formoterol [Symbicort] 2 puff INHALATION Q12H 05/25/18 05/25/18 History enoxaparin 0.6 ml SUBCUT Q12H 05/25/18 05/25/18 History ondansetron HCl 8 mg PO Q8H PRN 05/25/18 05/25/18 History pegfilgrastim [Neulasta] 6 mg SUBCUT UD 05/25/18 05/25/18 History prochlorperazine maleate 10 mg PO Q6H PRN 05/25/18 05/25/18 History tiotropium bromide [Spiriva 2 puff INHALATION DAILY 05/25/18 05/25/18 History Respimat] Allergies Allergy/AdvReac Type Severity Reaction Status Date / Time No Known Allergies Allergy Verified 05/25/18 17:18 Past Med/Surg History Medical History 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 S/P neoadjuvant modified FOLFOX 6 chemotherapy x 5 -Oxaliplatin induced the liver toxicity, received 5-Fluorouracil leucovorin x 7. Last cycle received on 02/12/2018. S/P right hemicolectomy on 03/23/2017 (by Dr. Cheng). 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 KRAS and BRAF mutation-->negative. 04/2018: -recurrent high-grade neuroendocrine carcinoma involving the retroperitoneal lymph regan region causing right hydronephrosis, S/P percutaneous nephrostomy drainage. -IVC thrombus, pulmonary embolism. - Essential thrombocythemia diagnosed in 2005, JAK2 mutation positive platelet count was over 1 million at that time the diagnosis. She is on hydro xyurea for that." Metastatic disease (Chronic) IVC thrombosis (Chronic) Pulmonary embolism (Chronic) Thrombocytosis (Chronic) Colon cancer (Chronic) S/P right hemicolectomy on 03/23/2017 (by Dr. Long). 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 and A total of 10 systems reviewed and were otherwise negative Physical Exam Vital Signs Vital Signs - 24 hr 05/26/18 15:00 05/26/18 19:00 05/27/18 00:22 Temperature 36.7 C 37.2 C 36.9 C Temperature Source Oral Oral Oral Pulse Rate [Finger] 73 81 82 Pulse Strength [Finger] Normal Respiratory Rate 16 18 18 Respiratory Depth Normal Blood Pressure [Left Arm] 109/69 Blood Pressure [Right Arm] 95/57 L 123/74 Blood Pressure Mean [Left Arm] 82 Blood Pressure Mean [Right Arm] 69 90 Blood Pressure Position [Left Arm] Sitting Blood Pressure Position [Right Arm] Lying Lying Pulse Oximetry 97 97 96 Oxygen Delivery Method Room Air Room Air Room Air 05/27/18 03:27 05/27/18 08:22 05/27/18 11:31 Temperature 36.7 C 36.7 C 36.7 C Temperature Source Oral Oral Oral Pulse Rate [Finger] 70 67 83 Pulse Strength [Finger] Respiratory Rate 18 16 16 Respiratory Depth Blood Pressure [Left Arm] 103/66 Blood Pressure [Right Arm] 125/74 123/74 Blood Pressure Mean [Left Arm] 78 Blood Pressure Mean [Right Arm] 91 90 Blood Pressure Position [Left Arm] Lying Blood Pressure Position [Right Arm] Lying Lying Pulse Oximetry 95 96 97 Oxygen Delivery Method Room Air Room Air Room Air GENERAL: Patient is awake alert in no acute distress patient is resting comfortably and showing no signs of anxiety EYES: The conjunctivae are clear. The pupils are round and reactive. EARS, NOSE, MOUTH AND THROAT: The nose is without any evidence of any deformity. Mucous membranes are moist tongue is midline NECK: The neck is nontender and supple. RESPIRATORY: Diminished breath sounds were noted at both bases. There is no ta chypnea or conversational dyspnea appreciated. CARDIOVASCULAR: Regular rate and rhythm noted there no murmurs rubs or gallops normal S1 normal S2 GASTROINTESTINAL: The abdomen is mildly distended with upper abdominal tenderness to palpation. There is no guarding or rigidity noted. There was right sided tenderness to palpation. BACK: There was right CVA tenderness to percussion. There was a nephrostomy tube noted in the right flank. No swelling was noted around the tube. MUSCULOSKELETAL/EXTREMITIES: There is no evidence of gross deformity full range of motion is noted in the hips and shoulders SKIN: There is no obvious evidence of any rash. Trace pedal edema was noted bilaterally. NEUROLOGIC: Patient is awake alert and oriented x3 strength is symmetric patellar reflexes are 2+ bilaterally Course 1659: Past medical records reviewed. The patient was evaluated in room A9, and a complete history and physical examination were performed. 0813: I checked on the patient at this time and discussed their findings. 0822: I reviewed the patient's case with Hazel Sigala. He recommends speaking to a urologist. 0831: I reviewed the patient's case with Paddy Cui. He recommends medical management and a follow up with the patient. 0835: I reviewed the patient's case with Hazel Sigala. He will evaluate the patient for further management. Consultations Consultation #1: I reviewed the patient's case with Hazel Sigala. He recommends speaking to a urologist. Time: 08:22 Consultation #2: I reviewed the patient's case with Paddy Cui. He recommends medical management and a follow up with the patient. Time: 08:31 Consultation #3: I reviewed the patient's case with Hazel Sigala. He will evaluate the patient for further management. Time: 08:35 Administered Medications Allopurinol (Zyloprim) 300 mg PO QAM [facility] Stop: 06/25/18 08:59 Last Admin: 05/27/18 08:34 Dose: 300 mg Documented by: [id number] Admin: 05/26/18 08:43 Dose: 300 mg Documented by: [id number] Budesonide/Formoterol Fumarate (Symbicort 160mcg/4.5mcg) 2 puffs INH Q12H VERONICA Stop: 06/25/18 08:59 Last Admin: 05/27/18 08:35 Dose: 2 puffs Documented by: [id number] Admin: 05/26/18 20:11 Dose: Not Given Documented by: [id number] Admin: 05/26/18 08:45 Dose: 2 puffs Documented by: [id number] Enoxaparin Sodium (Lovenox) 60 mg SQ Q12H VERONICA Stop: 06/25/18 08:59 Last Admin: 05/27/18 08:34 Dose: 60 mg Documented by: [id number] Admin: 05/26/18 20:12 Dose: 60 mg Documented by: [id number] Admin: 05/26/18 08:43 Dose: 60 mg Documented by: [id number] Ceftriaxone Sodium 1,000 mg/ (Dextrose) 50 mls @ 100 mls/hr IV Q24H VERONICA Stop: 06/05/18 00:00 Last Infusion: 05/27/18 00:03 Dose: 0 mls/hr Documented by: [id number] Admin: 05/26/18 23:27 Dose: 100 mls/hr Documented by: [id number] Infusion: 05/26/18 00:50 Dose: 0 mls/hr Documented by: [id number] Admin: 05/26/18 00:18 Dose: 100 mls/hr Documented by: [id number] Paroxetine HCl (Paxil) 30 mg PO QAM VERONICA Stop: 06/25/18 08:59 Last Admin: 05/27/18 08:34 Dose: 30 mg Documented by: [id number] Admin: 05/26/18 08:43 Dose: 30 mg Documented by: [id number] Tiotropium [place] (Spiriva) 1 puffs INH DAILY VERONICA Stop: 06/25/18 08:59 Last Admin: 05/27/18 08:35 Dose: 1 puffs Documented by: [id number] Admin: 05/26/18 08:45 Dose: 1 puffs Documented by: [id number] Tramadol HCl (Ultram) 25 - 50 mg PO Q4H PRN PRN Reason: Pain Stop: 06/24/18 22:15 Last Admin: 05/26/18 00:22 Dose: 50 mg Documented by: [id number] Discontinued Medications Enoxaparin Sodium (Lovenox) 60 mg SQ NOW STA Stop: 05/25/18 21:15 Last Admin: 05/25/18 21:35 Dose: 60 mg Documented by: [id number] Enoxaparin Sodium (Lovenox) Confirm Administered Dose 100 mg .ROUTE .STK-MED ONE Stop: 05/25/18 21:33 Last Admin: 05/25/18 21:35 Dose: Not Given Documented by: [id number] Sodium Chloride (Nss 1000ml) 1,000 mls @ 999 mls/hr IV .Q1H1M VERONICA Stop: 05/25/18 18:15 Last Infusion: 05/25/18 18:24 Dose: 0 mls/hr Documented by: [id number] Admin: 05/25/18 17:21 Dose: 999 mls/hr Documented by: [id number] Piperacillin Sod/Tazobactam Sod (Zosyn) 4.5 gm in 120 mls @ 240 mls/hr IV NOW ONE Stop: 05/25/18 20:44 Last Infusion: 05/25/18 21:26 Dose: 0 mls/hr Documented by: [id number] Admin: 05/25/18 20:35 Dose: 240 mls/hr Documented by: [id number] Sodium Chloride (1/2 Nss) 1,000 mls @ 80 mls/hr IV .[id number] ONE Stop: 05/26/18 11:44 Last Infusion: 05/26/18 12:46 Dose: 0 mls/hr Documented by: [id number] Admin: 05/25/18 23:56 Dose: 80 mls/hr Documented by: [id number] Ioversol (Optiray 320 100ml) 94 ml IV ONCE PRN PRN Reason: Interaction Checking Stop: 05/29/18 19:37 Last Admin: 05/25/18 19:39 Dose: 94 ml Documented by: [id number] Morphine Sulfate (Morphine Sulfate) 4 mg IV Q15M PRN PRN Reason: Pain Stop: 06/08/18 17:03 Last Admin: 05/25/18 20:01 Dose: 4 mg Documented by: [id number] Admin: 05/25/18 17:22 Dose: 4 mg Documented by: [id number] Ondansetron HCl (Zofran) 4 mg IV NOW STA Stop: 05/25/18 17:05 Last Admin: 05/25/18 17:21 Dose: 4 mg Documented by: [id number] Medical Decision Making Differential Diagnosis Differential diagnosis: Etiologies such as cardiac ischemia, aortic dissection, pulmonary embolism, pneumonia, pneumothorax, musculoskeletal, infections, pericarditis, myocarditis, esophageal rupture, gastrointestinal, as well as others were entertained. Medical Records Attestation: I reviewed the patient's medical records. Home Medications Current Medication List: was personally reviewed by me Laboratory Data Result diagrams: 05/27/18 06:49 05/27/18 06:49 Lab Results 05/25/18 05/25/18 05/25/18 Range/Units 17:15 17:15 17:15 WBC 3.85 L (4.8-10.8) K/uL RBC 2.55 L (4.2-5.4) M/uL Hgb 10.1 L (12.0-16.0) g/dL Hct 30.2 L (37-47) % MCV 118.4 H (80-100) fL MCH 39.6 H (25-34) pg MCHC 33.4 (32-36) g/dL RDW Std Deviation 56.3 H (36.4-46.3) fL RDW Coeff of Ysabel 12.9 (11.5-14.5) % Plt Count 165 (130-400) K/uL MPV 9.8 (7.4-10.4) fL Absolute Nucleated RBC 0.07 H (0-0) K/uL Nucleated RBC % (auto) 1.8 % Neutrophils % (Manual) 74.8 % Lymphocytes % (Manual) 16.5 % Monocytes % (Manual) 3.5 % Eosinophils % (Manual) % Basophils % (Manual) 2.6 % Metamyelocytes % (Man) % Myelocytes % (Man) 0.9 % Blast Cells % (Manual) 1.7 % Neutrophils # (Manual) 2.88 (1.4-6.5) K/uL Total Absolute Neuts 2.88 (1.4-6.5) K/uL Lymphocytes # (Manual) 0.64 L (1.2-3.4) K/uL Total Abs Lymphocytes 0.64 L (1.2-3.4) K/uL Monocytes # (Manual) 0.13 (0.11-0.59) K/uL Eosinophils # (Manual) (0-0.5) K/uL Basophils # (Manual) 0.10 (0-0.2) K/uL Metamyelocytes # (Man) (0-0) K/uL Myelocytes # (Manual) 0.03 H (0-0) K/uL Blast Cells # (Man) 0.07 H (0-0) K/uL Blood Smear Review Toxic Granulation 2+ Dohle Bodies 1+ PT 9.8 (9.0-12.0) Seconds INR 1.0 (0.9-1.1) APTT 26.5 (21.0-31.0) Seconds PTT Ratio 1.0 Sodium 141 (136-145) mmol/L Potassium 4.1 (3.5-5.1) mmol/L Chloride 110 H (98-107) mmol/L Carbon Dioxide 26 (21-32) mmol/L Anion Gap 5.0 (3-11) BUN 14 (7-18) mg/dl Creatinine 0.93 (0.6-1.2) mg/dl Est Cr Clr Drug Dosing 54.6 ml/min Est GFR ( Amer) 76.9 Est GFR (Non-Af Amer) 66.3 BUN/Creatinine Ratio 14.8 (10-20) Glucose 93 (70-99) mg/dl Calcium 8.0 L (8.5-10.1) mg/dl Magnesium 1.9 (1.8-2.4) mg/dl Total Bilirubin 0.2 (0.2-1) mg/dl AST 20 (15-37) U/L ALT 52 (12-78) U/L Alkaline Phosphatase 326 H (45-117) U/L Troponin I < 0.015 (0-0.045) ng/ml C-Reactive Protein 1.46 H (0-0.29) mg/dl Total Protein 6.5 (6.4-8.2) gm/dl Albumin 3.1 L (3.4-5.0) gm/dl Globulin 3.4 (2.5-4.0) gm/dl Albumin/Globulin Ratio 0.9 (0.9-2) Lipase 114 (73-393) U/L Urine Color Urine Appearance (Clear) Urine pH (4.5-7.5) Ur Specific [place] (1.000-1.030) Urine Protein (Negative) Urine Glucose (UA) (Negative) Urine Ketones (Negative) Urine Blood (Negative) Urine Nitrite (Negative) Urine Bilirubin (Negative) Urine Urobilinogen (Negative) Ur Leukocyte Esterase (Negative) Urine WBC (Auto) (0-5) /hpf Urine RBC (Auto) (0-4) /hpf U Hyaline Cast (Auto) (0-5) /lpf U Epithel Cells (Auto) (0-5) /lpf Urine Bacteria (Auto) (Negative) Ur Renal Epithelial Cell 05/25/18 05/25/18 05/25/18 Range/Units 17:15 18:30 20:24 WBC (4.8-10.8) K/uL RBC (4.2-5.4) M/uL Hgb (12.0-16.0) g/dL Hct (37-47) % MCV (80-100) fL MCH (25-34) pg MCHC (32-36) g/dL RDW Std Deviation (36.4-46.3) fL RDW Coeff of Ysabel (11.5-14.5) % Plt Count (130-400) K/uL MPV (7.4-10.4) fL Absolute Nucleated RBC (0-0) K/uL Nucleated RBC % (auto) % Neutrophils % (Manual) % Lymphocytes % (Manual) % Monocytes % (Manual) % Eosinophils % (Manual) % Basophils % (Manual) % Metamyelocytes % (Man) % Myelocytes % (Man) % Blast Cells % (Manual) % Neutrophils # (Manual) (1.4-6.5) K/uL Total Absolute Neuts (1.4-6.5) K/uL Lymphocytes # (Manual) (1.2-3.4) K/uL Total Abs Lymphocytes (1.2-3.4) K/uL Monocytes # (Manual) (0.11-0.59) K/uL Eosinophils # (Manual) (0-0.5) K/uL Basophils # (Manual) (0-0.2) K/uL Metamyelocytes # (Man) (0-0) K/uL Myelocytes # (Manual) (0-0) K/uL Blast Cells # (Man) (0-0) K/uL Blood Smear Review Toxic Granulation Dohle Bodies PT (9.0-12.0) Seconds INR (0.9-1.1) APTT (21.0-31.0) Seconds PTT Ratio Sodium (136-145) mmol/L Potassium (3.5-5.1) mmol/L Chloride (98-107) mmol/L Carbon Dioxide (21-32) mmol/L Anion Gap (3-11) BUN (7-18) mg/dl Creatinine (0.6-1.2) mg/dl Est Cr Clr Drug Dosing ml/min Est GFR ( Amer) Est GFR (Non-Af Amer) BUN/Creatinine Ratio (10-20) Glucose (70-99) mg/dl Calcium (8.5-10.1) mg/dl Magnesium Cancelled (1.8-2.4) mg/dl Total Bilirubin (0.2-1) mg/dl AST (15-37) U/L ALT (12-78) U/L Alkaline Phosphatase (45-117) U/L Troponin I (0-0.045) ng/ml C-Reactive Protein (0-0.29) mg/dl Total Protein (6.4-8.2) gm/dl Albumin (3.4-5.0) gm/dl Globulin (2.5-4.0) gm/dl Albumin/Globulin Ratio (0.9-2) Lipase (73-393) U/L Urine Color Yellow Yellow Urine Appearance Cloudy H Clear (Clear) Urine pH 8.0 H 5.5 (4.5-7.5) Ur Specific [place] 1.006 1.037 H (1.000-1.030) Urine Protein 2+ H Negative (Negative) Urine Glucose (UA) Negative Negative (Negative) Urine Ketones Negative Negative (Negative) Urine Blood 3+ H Negative (Negative) Urine Nitrite Negative Negative (Negative) Urine Bilirubin Negative Negative (Negative) Urine Urobilinogen Negative Negative (Negative) Ur Leukocyte Esterase 2+ H Negative (Negative) Urine WBC (Auto) 5-10 H (0-5) /hpf Urine RBC (Auto) 5-10 H (0-4) /hpf U Hyaline Cast (Auto) 1-5 (0-5) /lpf U Epithel Cells (Auto) >30 H (0-5) /lpf Urine Bacteria (Auto) Negative (Negative) Ur Renal Epithelial Cell Not Reportable 05/26/18 05/26/18 05/27/18 Range/Units 05:33 05:33 06:49 WBC 5.31 (4.8-10.8) K/uL RBC 2.43 L (4.2-5.4) M/uL Hgb 9.3 L (12.0-16.0) g/dL Hct 28.8 L (37-47) % MCV 118.5 H (80-100) fL MCH 38.3 H (25-34) pg MCHC 32.3 (32-36) g/dL RDW Std Deviation 56.9 H (36.4-46.3) fL RDW Coeff of Ysabel 13.2 (11.5-14.5) % Plt Count 143 (130-400) K/uL MPV 9.9 (7.4-10.4) fL Absolute Nucleated RBC 0.07 H (0-0) K/uL Nucleated RBC % (auto) 1.3 % Neutrophils % (Manual) 69.2 % Lymphocytes % (Manual) 13.7 % Monocytes % (Manual) 3.4 % Eosinophils % (Manual) 0.9 % Basophils % (Manual) 1.7 % Metamyelocytes % (Man) 1.7 % Myelocytes % (Man) 6.0 % Blast Cells % (Manual) 3.4 % Neutrophils # (Manual) 3.67 (1.4-6.5) K/uL Total Absolute Neuts 3.67 (1.4-6.5) K/uL Lymphocytes # (Manual) 0.73 L (1.2-3.4) K/uL Total Abs Lymphocytes 0.73 L (1.2-3.4) K/uL Monocytes # (Manual) 0.18 (0.11-0.59) K/uL Eosinophils # (Manual) 0.05 (0-0.5) K/uL Basophils # (Manual) 0.09 (0-0.2) K/uL Metamyelocytes # (Man) 0.09 H (0-0) K/uL Myelocytes # (Manual) 0.32 H (0-0) K/uL Blast Cells # (Man) 0.18 H (0-0) K/uL Blood Smear Review Toxic Granulation 3+ Dohle Bodies 2+ PT (9.0-12.0) Seconds INR (0.9-1.1) APTT (21.0-31.0) Seconds PTT Ratio Sodium 140 144 (136-145) mmol/L Potassium 4.2 4.1 (3.5-5.1) mmol/L Chloride 110 H 112 H (98-107) mmol/L Carbon Dioxide 27 27 (21-32) mmol/L Anion Gap 3.0 5.0 (3-11) BUN 9 D 8 (7-18) mg/dl Creatinine 1.05 1.00 (0.6-1.2) mg/dl Est Cr Clr Drug Dosing 48.6 50.9 ml/min Est GFR ( Amer) 66.4 70.4 Est GFR (Non-Af Amer) 57.3 60.8 BUN/Creatinine Ratio 8.8 L 7.6 L (10-20) Glucose 85 90 (70-99) mg/dl Calcium 7.9 L 8.2 L (8.5-10.1) mg/dl Magnesium 2.1 (1.8-2.4) mg/dl Total Bilirubin (0.2-1) mg/dl AST (15-37) U/L ALT (12-78) U/L Alkaline Phosphatase (45-117) U/L Troponin I (0-0.045) ng/ml C-Reactive Protein (0-0.29) mg/dl Total Protein (6.4-8.2) gm/dl Albumin (3.4-5.0) gm/dl Globulin (2.5-4.0) gm/dl Albumin/Globulin Ratio (0.9-2) Lipase (73-393) U/L Urine Color Urine Appearance (Clear) Urine pH (4.5-7.5) Ur Specific [place] (1.000-1.030) Urine Protein (Negative) Urine Glucose (UA) (Negative) Urine Ketones (Negative) Urine Blood (Negative) Urine Nitrite (Negative) Urine Bilirubin (Negative) Urine Urobilinogen (Negative) Ur Leukocyte Esterase (Negative) Urine WBC (Auto) (0-5) /hpf Urine RBC (Auto) (0-4) /hpf U Hyaline Cast (Auto) (0-5) /lpf U Epithel Cells (Auto) (0-5) /lpf Urine Bacteria (Auto) (Negative) Ur Renal Epithelial Cell 05/27/18 Range/Units 06:49 WBC 7.98 (4.8-10.8) K/uL RBC 2.56 L (4.2-5.4) M/uL Hgb 9.9 L (12.0-16.0) g/dL Hct 30.3 L (37-47) % MCV 118.4 H (80-100) fL MCH 38.7 H (25-34) pg MCHC 32.7 (32-36) g/dL RDW Std Deviation 58.6 H (36.4-46.3) fL RDW Coeff of Ysabel 13.6 (11.5-14.5) % Plt Count 163 (130-400) K/uL MPV 10.3 (7.4-10.4) fL Absolute Nucleated RBC 0.07 H (0-0) K/uL Nucleated RBC % (auto) 0.9 % Neutrophils % (Manual) % Lymphocytes % (Manual) % Monocytes % (Manual) % Eosinophils % (Manual) % Basophils % (Manual) % Metamyelocytes % (Man) % Myelocytes % (Man) % Blast Cells % (Manual) % Neutrophils # (Manual) (1.4-6.5) K/uL Total Absolute Neuts (1.4-6.5) K/uL Lymphocytes # (Manual) (1.2-3.4) K/uL Total Abs Lymphocytes (1.2-3.4) K/uL Monocytes # (Manual) (0.11-0.59) K/uL Eosinophils # (Manual) (0-0.5) K/uL Basophils # (Manual) (0-0.2) K/uL Metamyelocytes # (Man) (0-0) K/uL Myelocytes # (Manual) (0-0) K/uL Blast Cells # (Man) (0-0) K/uL Blood Smear Review Toxic Granulation Dohle Bodies PT (9.0-12.0) Seconds INR (0.9-1.1) APTT (21.0-31.0) Seconds PTT Ratio Sodium (136-145) mmol/L Potassium (3.5-5.1) mmol/L Chloride (98-107) mmol/L Carbon Dioxide (21-32) mmol/L Anion Gap (3-11) BUN (7-18) mg/dl Creatinine (0.6-1.2) mg/dl Est Cr Clr Drug Dosing ml/min Est GFR ( Amer) Est GFR (Non-Af Amer) BUN/Creatinine Ratio (10-20) Glucose (70-99) mg/dl Calcium (8.5-10.1) mg/dl Magnesium (1.8-2.4) mg/dl Total Bilirubin (0.2-1) mg/dl AST (15-37) U/L ALT (12-78) U/L Alkaline Phosphatase (45-117) U/L Troponin I (0-0.045) ng/ml C-Reactive Protein (0-0.29) mg/dl Total Protein (6.4-8.2) gm/dl Albumin (3.4-5.0) gm/dl Globulin (2.5-4.0) gm/dl Albumin/Globulin Ratio (0.9-2) Lipase (73-393) U/L Urine Color Urine Appearance (Clear) Urine pH (4.5-7.5) Ur Specific [place] (1.000-1.030) Urine Protein (Negative) Urine Glucose (UA) (Negative) Urine Ketones (Negative) Urine Blood (Negative) Urine Nitrite (Negative) Urine Bilirubin (Negative) Urine Urobilinogen (Negative) Ur Leukocyte Esterase (Negative) Urine WBC (Auto) (0-5) /hpf Urine RBC (Auto) (0-4) /hpf U Hyaline Cast (Auto) (0-5) /lpf U Epithel Cells (Auto) (0-5) /lpf Urine Bacteria (Auto) (Negative) Ur Renal Epithelial Cell Imaging Data Radiologist's Impression: Radiology results as stated below per my review and the radiologist's interpretation: SINGLE VIEW CHEST CLINICAL HISTORY: Atypical chest pain. FINDINGS: An AP, portable, upright chest radiograph is compared to chest x-ray and chest CT dated 04/24/2018. A right internal jugular central venous infusion port is unchanged from previous. The cardiomediastinal silhouette is unremarkable. Emphysema and chronic interstitial thickening are similar to previous. There is mild bibasilar atelectasis. No airspace consolidation or large pleural effusion is identified. No pneumothorax is seen. The skeletal structures are osteopenic. The bony thorax is grossly intact. A catheter is partially visualized in the right upper quadrant of the abdomen. IMPRESSION: Emphysematous change with no acute cardiopulmonary abnormality. Electronically signed by: Willy Chahal M.D. 05/25/2018 5:[address] SCAN OF THE ABDOMEN AND PELVIS WITH IV CONTRAST CLINICAL HISTORY: Right-sided abdominal pain. History of colon cancer. COMPARISON STUDY: Abdominal CT dated 04/24/2018. TECHNIQUE: Following the IV administration of 94 cc of Optiray 320, CT scan of the abdomen and pelvis is performed from the lung bases to the proximal femora. Images are reviewed in the axial, sagittal, and coronal planes. IV contrast was administered without complication. A dose lowering technique was utilized adhering to the principles of ALARA. CT DOSE: 285.06 mGy.cm FINDINGS: Lung bases: The heart is normal in size and without pericardial effusion. Emphysematous change is seen at the lung bases. There is bibasilar scarring/atelectasis. No airspace consolidation or pleural effusion is identified. There is a small hiatal hernia. Liver: The contrast-enhanced liver is normal in size, contour, and attenuation. There is no intrahepatic biliary ductal dilatation. The hepatic veins and portal veins are patent. Gallbladder: Unremarkable. Spleen: Normal in size and attenuation. Pancreas: Unremarkable. Adrenal glands: Unremarkable. Kidneys: The left kidney is normal in size and without hydronephrosis. The left kidney enhances homogeneously. There is asymmetric cortical atrophy of the right kidney as compared to left. A percutaneous nephrostomy tube is in place on the right and in appropriate position. Right-sided hydronephrosis has resolved as compared to the 04/24/2018 examination. There is heterogeneously diminished perfusion of the right kidney as compared to the left. There is mild right-sided perinephric stranding, as well as inflammatory change identified around the right renal pelvis and around the right ureter. Abdominal vasculature: The abdominal aorta is normal in course and caliber noting moderate atherosclerotic calcification. 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 Thrombus is also seen within the right common iliac vein. Bowel: There are postoperative changes from right hemicolectomy with ileocolic anastomosis. No bowel obstruction is seen. Peritoneum/retroperitoneum: There is no intraperitoneal free air or abdominal ascites. There is a fat-containing umbilical hernia, as well as a fat-containing supraumbilical hernia. A heterogeneous mass is again seen within the retroperitoneum. This encases the aortic bifurcation the IVC as well as the right ureter. This is best seen on image #209 and measures approximately 6 x 5 cm. Lymphadenopathy: None. Pelvic viscera: The bladder wall appears mildly thickened and hyperemic, and there is pericystic inflammatory stranding. The uterus is heterogeneous. No adnexal lesion is clearly identified. Prominent pelvic veins are noted. Skeletal structures: The skeletal structures are osteopenic. There is moderate l umbosacral spondylosis as well as mild scoliosis. No lytic or blastic lesions are seen. Prominent epidural veins are again suggested in the lower lumbar region anteriorly. IMPRESSION: 1. A right-sided percutaneous nephrostomy tube is new from 04/24/2018. Hydronephrosis of the right kidney has resolved. 2. There is heterogeneously diminished enhancement of the right kidney as compared to the left with surrounding inflammatory change. Additionally, there is inflammation around the right renal pelvis and the right ureter with associated urothelial thickening and enhancement. Correlate clinically for evidence of urinary tract infection/pyelonephritis. 3. The appearance of the bladder suggests cystitis. Correlation with clinical findings and urinalysis will be required. 4. A heterogeneous retroperitoneal mass lesion is unchanged and encases the aortic bifurcation, the IVC, and the right ureter. 5. Thrombus is again seen within the IVC and the right common iliac vein. 6. There are postoperative changes from right hemicolectomy with ileocolic anastomosis. No bowel obstruction is identified. 7. Prominent epidural collaterals are again suggested within the lumbar region. Epidural tumor is considered less likely but would be impossible to completely exclude. 8. Emphysema. 9. Additional findings as above. Electronically signed by: Willy Chahal M.D. 05/25/2018 8:11 PM ECG Data Attestation: I personally reviewed and interpreted this ECG as follows: Indication: chest pain Rate (beats per minute): 71 Rhythm: normal sinus Findings: + other (no acute ST segments); no ectopy Comparison ECG Date: from (04/24/18) Change: no significant change Blood Pressure Blood Pressure Findings: Normal blood pressure Blood Pressure Disposition: did not require urgent referral MDM Narrative The patient is a 63-year-old female who presented to the emergency department for an evaluation of right-sided pain. The patient initially described her discomfort as chest discomfort. She does have a history of a PE and is currently taking anticoagulation. The patient appeared to have more right-sided pain including right flank and right abdomen pain on physical exam. She has a history of a retroperitoneal mass which resulted in hydronephrosis. The patient was transferred to [facility] last month for these problems and had a nephrostomy tube. The patient had a urinalysis sent from the emergency department which does appear to be consistent with infection. Radiographic studies do appear to be consistent with pyelonephritis and cystitis. The patient was treated with IV fluids IV pain medicine and IV antiemetics. She was also treated with IV antibiotics for presumed urinary tract infection. I discussed her case with the on-call [facility] urology group as they had seen her on her recent visit for the hydronephrosis. I also discussed her case with the on-call [facility] hospitalist group. They have agreed to evaluate patient in the emergency department for further management and disposition. The patient's EKG did not show any definite ischemic changes and her cardiac biomarker was negative despite having ongoing pain since 3:00 this morning. She was feeling much better on subsequent reevaluation. She was reevaluated multiple times. Impression & Plan Pyelonephritis, Chest pain, Right flank pain, Retroperitoneal mass Discharge Plan Visit Data *Final* Discharge Date/Time: 05/25/18 22:52 Chief Complaint: Chest Pain Stated Complaint: CHEST PAIN, LOWER BACK PAIN ED Provider: Ben Walsh Discharge Problem: Pyelonephritis, Chest pain, Right flank pain, Retroperitoneal mass Patient Disposition: Admitted As Inpatient Discharge Instructions Interventions: ED Discharge Assessment Last Done: 05/25/18 22:52 Discharge Problem: Chest pain Qualifiers: Chest pain type: unspecified Qualified Code(s): R07.9 - Chest pain, unspecified The scribe's documentation has been prepared under my direction and personally reviewed by me in its entirety. I confirm that the note above accurately reflects all work, treatment, procedures, and medical decision making performed by me.
[2018-05-25 18:31] LABS: Dohle Bodies 1+; Toxic Granulation 2+
[2018-05-25 18:33] LABS: ALC (manual) 0.64 K/uL (1.2-3.4); Basophils % (manual) 2.6 %; Blast # (manual) 0.07 K/uL (0-0); Blast Cells % (manual) 1.7 %; Lymphocytes # (manual) 0.64 K/uL (1.2-3.4); Lymphocytes % (manual) 16.5 %; Monocytes # (manual) 0.13 K/uL (0.11-0.59); Monocytes % (manual) 3.5 %; Myelocytes # (manual) 0.03 K/uL (0-0); Myelocytes % (manual) 0.9 %; Neutrophils % (manual) 74.8 %
[2018-05-25 19:06] LABS: Appearance Urine Cloudy (Clear); Bacteria Urine Automated Negative (Negative); Bilirubin Urine Negative (Negative); Blood Urine 3+ (Negative); Color Urine Yellow; Epithelial Cell Urine Auto >30 /lpf (0-5); Glucose Urine UA Negative (Negative); Ketones Urine Negative (Negative); Leukocyte Esterase Urine 2+ (Negative); Nitrite Urine Negative (Negative); Specific Gravity Urine 1.006 (1.000-1.030); Urobilinogen Urine Negative (Negative)
[2018-05-25 19:20] LABS: Protein Urine 2+ (Negative)
[2018-05-25] MEDS ORDERED: IOVERSOL 100ml IV PRN (19:38)
--- NOTE | 2018-05-25 20:13 | CT Scan Report ---
CT SCAN OF THE ABDOMEN AND PELVIS WITH IV CONTRAST CLINICAL HISTORY: Right-sided abdominal pain. History of colon cancer. COMPARISON STUDY: Abdominal CT dated 04/24/2018. TECHNIQUE: Following the IV administration of 94 cc of Optiray 320, CT scan of the abdomen and pelvi s is performed from the lung bases to the proximal femora. Images are reviewed in the axial, sagittal , and coronal planes. IV contrast was administered without complication. A dose lowering technique wa s utilized adhering to the principles of ALARA. CT DOSE: 285.06 mGy.cm FINDINGS: Lung bases: The heart is normal in size and without pericardial effusion. Emphysematous change is see n at the lung bases. There is bibasilar scarring/atelectasis. No airspace consolidation or pleural ef fusion is identified. There is a small hiatal hernia. Liver: The contrast-enhanced liver is normal in size, contour, and attenuation. There is no intrahepa tic biliary ductal dilatation. The hepatic veins and portal veins are patent. Gallbladder: Unremarkable. Spleen: Normal in size and attenuation. Pancreas: Unremarkable. Adrenal glands: Unremarkable. Kidneys: The left kidney is normal in size and without hydronephrosis. The left kidney enhances homog eneously. There is asymmetric cortical atrophy of the right kidney as compared to left. A percutaneou s nephrostomy tube is in place on the right and in appropriate position. Right-sided hydronephrosis h as resolved as compared to the 04/24/2018 examination. There is heterogeneously diminished perfusion o f the right kidney as compared to the left. There is mild right-sided perinephric stranding, as well as inflammatory change identified around the right renal pelvis and around the right ureter. Abdominal vasculature: The abdominal aorta is normal in course and caliber noting moderate atheroscle rotic calcification. Extensive thrombus is again seen within the inferior vena cava, best seen on agustina ge #125. Thrombus is also seen within the right common iliac vein. Bowel: There are postoperative changes from right hemicolectomy with ileocolic anastomosis. No bowel obstruction is seen. Peritoneum/retroperitoneum: There is no intraperitoneal free air or abdominal ascites. There is a fat -containing umbilical hernia, as well as a fat-containing supraumbilical hernia. A heterogeneous mass is again seen within the retroperitoneum. This encases the aortic bifurcation the IVC as well as the right ureter. This is best seen on image #209 and measures approximately 6 x 5 cm. Lymphadenopathy: None. Pelvic viscera: The bladder wall appears mildly thickened and hyperemic, and there is pericystic infl ammatory stranding. The uterus is heterogeneous. No adnexal lesion is clearly identified. Prominent p elvic veins are noted. Skeletal structures: The skeletal structures are osteopenic. There is moderate lumbosacral spondylosi s as well as mild scoliosis. No lytic or blastic lesions are seen. Prominent epidural veins are again suggested in the lower lumbar region anteriorly. IMPRESSION: 1. A right-sided percutaneous nephrostomy tube is new from 04/24/2018. Hydronephrosis of the right kid eduardo has resolved. 2. There is heterogeneously diminished enhancement of the right kidney as compared to the left with s urrounding inflammatory change. Additionally, there is inflammation around the right renal pelvis and the right ureter with associated urothelial thickening and enhancement. Correlate clinically for cyndie dence of urinary tract infection/pyelonephritis. 3. The appearance of the bladder suggests cystitis. Correlation with clinical findings and urinalysis will be required. 4. A heterogeneous retroperitoneal mass lesion is unchanged and encases the aortic bifurcation, the I VC, and the right ureter. 5. Thrombus is again seen within the IVC and the right common iliac vein. 6. There are postoperative changes from right hemicolectomy with ileocolic anastomosis. No bowel obst ruction is identified. 7. Prominent epidural collaterals are again suggested within the lumbar region. Epidural tumor is con sidered less likely but would be impossible to completely exclude. 8. Emphysema. 9. Additional findings as above. Electronically signed by: Willy Chahal M.D. 05/25/2018 8:11 PM
[2018-05-25] MEDS ORDERED: PIPERACILL/TAZOBAC CONSULT ACTIVE PRN (20:15)
[2018-05-25] MEDS ORDERED: PIPERACILLIN/TAZOBACTAM 4.5 GM/120 ML BAG IV ONE (20:15)
[2018-05-25 20:38] LABS: Appearance Urine Clear (Clear); Bilirubin Urine Negative (Negative); Blood Urine Negative (Negative); Color Urine Yellow; Glucose Urine UA Negative (Negative); Ketones Urine Negative (Negative); Leukocyte Esterase Urine Negative (Negative); Nitrite Urine Negative (Negative); Protein Urine Negative (Negative); Specific Gravity Urine 1.037 (1.000-1.030); Urobilinogen Urine Negative (Negative); pH Urine 5.5 (4.5-7.5)
[2018-05-25] MEDS ORDERED: ENOXAPARIN INJ 60 MG/0.6 ML SYR SQ STA (21:14)
[2018-05-25 21:20] LABS: Magnesium 1.9 mg/dl (1.8-2.4)
[2018-05-25] MEDS ORDERED: ENOXAPARIN 100 MG/1ML SYR ONE (21:32)
--- NOTE | 2018-05-25 21:32 | History & Physical Report ---
Date of Service May 25, 2018 Assessment & Plan (1) Pyelonephritis: This is a 63-year-old female who has a significant past medical history of recurrent neuroendocrine carcinoma, moderate COPD, history of PE, IVC thrombus, essential thrombocytosis, retroperitoneal mass status post core needle biopsy positive for neuroendocrine tumor, depression and anxiety who presents to [facility] secondary to chest pain that radiated to abdomen and right lower back since 3 AM. While in ED initial workup revealed WBC 3.85, hemoglobin 10.1, hematocrit 30.2, platelet 165, sodium 141, potassium 4.1, chloride 110, BUN 14, creatinine 0.93, alk phos 326, troponin WNL, CRP 1.46, urinalysis significant for WBC, RBC and epithelial cells. Chest x-ray negative for acute cardiopulmonary abnormality. CT scan of abdomen pelvis concerning for cystitis and/or pyelonephritis. Previously seen retroperitoneal mass still present however right hydronephrosis has resolved secondary to percutaneous nephrostomy tube in place. Patient is being admitted secondary to suspected pyelonephritis/cystitis complicated by immunocompromise state given metastatic neuroendocrine carcinoma Please refer to Dr. Marsh's addendum further details regarding assessment and plan. 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 Chung, received cisplatin and etoposide cycle , with Neulasta injection on 05/18 to help prevent neutropenia -Continue allopurinol to help prevent tumor lysis syndrome -Continue to follow oncology (3) Pulmonary embolism: -Continue Lovenox 60 mg subcu every 12 hours for treatment of acute PE with concurrent metastatic neuroendocrine carcinoma (4) IVC thrombosis: (5) Anemia: -Hemoglobin and hematocrit 10.1 and 30.2 -Indices reveal macrocytic hyperchromic -Would recommend vitamin B12, MMA folic acid eval -Trend CBC (6) COPD (chronic obstructive pulmonary disease): -No acute exacerbation, continue Symbicort and Spiriva (7) Full code status: DVT ppx: Continue Lovenox 60 mg subcu every 12 hours for acute PE Disposition: Discharge to home when able Follow-up: PCP Dr. Mcgill on discharge along with appropriate follow-up oncology Dr. Chung, next scheduled chemo 06/05 - 06/07 Patient was seen and examined in collaboration with Dr. Briceño, please see addendum History of Present Illness Chief Complaint: Chest pain, R sided low back pain since 299. Primary Care Provider: Pretty Norris DO This is a 63-year-old female who has a significant past medical history of recurrent neuroendocrine carcinoma, moderate COPD, history of PE, IVC thrombus, essential thrombocytosis, retroperitoneal mass status post core needle biopsy positive for neuroendocrine tumor, depression and anxiety who presents to [facility] secondary to chest pain that radiated to abdomen and right lower back since 3 AM. Pain awoke patient from sleep was rated as 10/10. Symptoms initially started in chest then went to abdomen and right side low back. Pain was worse with movement but improved with sitting. Also complained of trace lower extremity swelling. Denies any recent fever, chills, sweats, lightheadedness, dizziness, shortness of breath, palpitations, hemoptysis, cough, nausea, vomiting, diarrhea, dysuria, hematuria, frequency or urgency with urination. Patient recently confided [facility] 04/26 due to in which at that time she was diagnosed with right lower lobe PE and noted to have new retroperitoneal mass that encompassed right ureter and IVC in which subsequently developed right-sided hydronephrosis. She was transferred to [place] and underwent a right percutaneous nephrostomy tube. She follows with Dr. Fermín Chung for oncology it which she already started her first round of chemo on 05/15-10/28 and had Neulasta on 05/18/18. She does have a history of essential thrombocytosis however her to hydroxyurea was discontinued given concurrent chemotherapy treatment. She was also placed on allopurinol due to being at risk for tumor lysis syndrome. Allergies Allergy/AdvReac Type Severity Reaction Status Date / Time No Known Allergies Allergy Verified 05/25/18 17:18 Home Medications Home Medications Medication Instructions Recorded Confirmed Type albuterol sulfate [ProAir HFA] 2 puff INHALATION Q6H PRN 04/24/18 05/25/18 History calcium carbonate [Tums] 300 mg PO DIRECTED PRN 04/24/18 05/25/18 History lorazepam 0.5 mg PO BID PRN 04/24/18 05/25/18 History paroxetine HCl 30 mg PO QAM 04/24/18 05/25/18 History allopurinol 300 mg PO QAM 05/25/18 05/25/18 History budesonide-formoterol [Symbicort] 2 puff INHALATION Q12H 05/25/18 05/25/18 History enoxaparin 0.6 ml SUBCUT Q12H 05/25/18 05/25/18 History ondansetron HCl 8 mg PO Q8H PRN 05/25/18 05/25/18 History pegfilgrastim [Neulasta] 6 mg SUBCUT UD 05/25/18 05/25/18 History prochlorperazine maleate 10 mg PO Q6H PRN 05/25/18 05/25/18 History tiotropium bromide [Spiriva 2 puff INHALATION DAILY 05/25/18 05/25/18 History Respimat] Past Med/Surg History Medical History 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 S/P neoadjuvant modified FOLFOX 6 chemotherapy x 5 -Oxaliplatin induced the liver toxicity, received 5-Fluorouracil leucovorin x 7. Last cycle received on 02/12/2018. S/P right hemicolectomy on 03/23/2017 (by Dr. Cheng). 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 KRAS and BRAF mutation-->negative. 04/2018: -recurrent high-grade neuroendocrine carcinoma involving the retroperitoneal lymph regan region causing right hydronephrosis, S/P percutaneous nephrostomy drainage. -IVC thrombus, pulmonary embolism. - Essential thrombocythemia diagnosed in 2005, JAK2 mutation positive platelet count was over 1 million at that time the diagnosis. She is on hydroxyurea for that." Metastatic disease (Chronic) IVC thrombosis (Chronic) Pulmonary embolism (Chronic) Thrombocytosis (Chronic) Colon cancer (Chronic) S/P right hemicolectomy on 03/23/2017 (by Dr. Cheng). 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 COPD (chronic obstructive pulmonary disease) (Chronic) Social History Preferred Language: Tajik Communication Ability: Effective Check Out Clerk Required: No Beliefs That Will Affect Care: None marital status: Current Living Situation: Spouse Other Information That Helps Us Care for You: No Feels Safe at Home: Yes Safety Concerns: Feels Safe At This Time Smoking Status: Former smoker Hx Alcohol Use: Yes Hx Substance Use: No Review of Systems All systems reviewed & are unremarkable except as noted in HPI & below Physical Exam Vital Signs (Past 24 Hours): Last Vital Signs Temp 36.5 C 05/25/18 16:49 Pulse 75 05/25/18 21:03 Resp 18 05/25/18 21:03 BP 135/73 05/25/18 19:45 Pulse Ox 97 05/25/18 21:03 Physical Exam: Gen: WD/WN, F, NAD, sitting up in bed, pleasant, conversing easily Head: Normocephalic, Atraumatic Eyes: Sclera normal, no conjunctival injection, PERRLA, EOMI ENT: Gross hearing intact, normal pharynx, mucous membranes moist Neck: supple, no adenopathy, No JVD, no bruit, Resp: Clear to auscultation b/l, no wheeze, rales, rhonchi. Normal insp/exp effort, no accessory muscle use CV: Regular rate, regular rhythm, no murmur, rub, gallop, or ectopy Abd: +BS x 4, soft, nontender, nondistended, mild R CVA tenderness, R lower back perc nephrostomy tube in place, CDI, draining clear yellow urine Musculoskeletal: moves extremities active rom x 4, strength intact, good diversity specialist strength Extremities: No edema bilaterally Skin: warm, moist, no rash, negative turgor, cap refill < 2sec Neuro: Alert and oriented x 3, speech normal, good mood/affect, cran nerve 2-12 intact grossly : Right percutaneous nephrostomy tube intact Results & Data Laboratory Results Short CBC 05/25/18 Range/Units 17:15 WBC 3.85 L (4.8-10.8) K/uL Hgb 10.1 L (12.0-16.0) g/dL Hct 30.2 L (37-47) % Plt Count 165 (130-400) K/uL BMP 05/25/18 17:15 Sodium 141 Potassium 4.1 Chloride 110 H Carbon Dioxide 26 BUN 14 Creatinine 0.93 Glucose 93 Calcium 8.0 L Cardiac Enzymes 05/25/18 Range/Units 17:15 Troponin I < 0.015 (0-0.045) ng/ml Liver Function 05/25/18 Range/Units 17:15 Total Bilirubin 0.2 (0.2-1) mg/dl AST 20 (15-37) U/L ALT 52 (12-78) U/L Alkaline Phosphatase 326 H (45-117) U/L Albumin 3.1 L (3.4-5.0) gm/dl Urine 05/25/18 05/25/18 Range/Units 18:30 20:24 Urine Color Yellow Yellow Urine Appearance Cloudy H Clear (Clear) Urine pH 8.0 H 5.5 (4.5-7.5) Ur Specific [place] 1.006 1.037 H (1.000-1.030) Urine Protein 2+ H Negative (Negative) Urine Glucose (UA) Negative Negative (Negative) Diagnostic Findings CXR: IMPRESSION: Emphysematous change with no acute cardiopulmonary abnormality. CT Abd/Pelvis IMPRESSION: 1. A right-sided percutaneous nephrostomy tube is new from 04/24/2018. Hydronephrosis of the right kidney has resolved. 2. There is heterogeneously diminished enhancement of the right kidney as compared to the left with surrounding inflammatory change. Additionally, there is inflammation around the right renal pelvis and the right ureter with associated urothelial thickening and enhancement. Correlate clinically for evidence of urinary tract infection/pyelonephritis. 3. The appearance of the bladder suggests cystitis. Correlation with clinical findings and urinalysis will be required. 4. A heterogeneous retroperitoneal mass lesion is unchanged and encases the aortic bifurcation, the IVC, and the right ureter. 5. Thrombus is again seen within the IVC and the right common iliac vein. 6. There are postoperative changes from right hemicolectomy with ileocolic anastomosis. No bowel obstruction is identified. 7. Prominent epidural collaterals are again suggested within the lumbar region. Epidural tumor is considered less likely but would be impossible to completely exclude. 8. Emphysema. 9. Additional findings as above. Medications Administered Ioversol (Optiray 320 100ml) 94 ml IV ONCE PRN PRN Reason: Interaction Checking Stop: 05/29/18 19:37 Last Admin: 05/25/18 19:39 Dose: 94 ml Documented by: [id number] Morphine Sulfate (Morphine Sulfate) 4 mg IV Q15M PRN PRN Reason: Pain Stop: 06/08/18 17:03 Last Admin: 05/25/18 20:01 Dose: 4 mg Documented by: [id number] Admin: 05/25/18 17:22 Dose: 4 mg Documented by: [id number] Discontinued Medications Enoxaparin Sodium (Lovenox) 60 mg SQ NOW STA Stop: 05/25/18 21:15 Last Admin: 05/25/18 21:35 Dose: 60 mg Documented by: [id number] Enoxaparin Sodium (Lovenox) Confirm Administered Dose 100 mg .ROUTE .STK-MED ONE Stop: 05/25/18 21:33 Last Admin: 05/25/18 21:35 Dose: Not Given Documented by: [id number] Sodium Chloride (Nss 1000ml) 1,000 mls @ 999 mls/hr IV .Q1H1M VERONICA Stop: 05/25/18 18:15 Last Infusion: 05/25/18 18:24 Dose: 0 mls/hr Documented by: [id number] Admin: 05/25/18 17:21 Dose: 999 mls/hr Documented by: [id number] Piperacillin Sod/Tazobactam Sod (Zosyn) 4.5 gm in 120 mls @ 240 mls/hr IV NOW ONE Stop: 05/25/18 20:44 Last Infusion: 05/25/18 21:26 Dose: 0 mls/hr Documented by: [id number] Admin: 05/25/18 20:35 Dose: 240 mls/hr Documented by: [id number] Ondansetron HCl (Zofran) 4 mg IV NOW STA Stop: 05/25/18 17:05 Last Admin: 05/25/18 17:21 Dose: 4 mg Documented by: [id number] Code Status & VTE Plan Code Status Full Code VTE Prophylaxis Plan VTE Prophylaxis will be ordered: Yes Supervising Physician Co-Signing Physician Notes IM ATTENDING : Patient seen and examined. History obtained from patient and records. Preceding documentation by Miss Anne Marsh PA-C reviewed. FINAL ASSESSMENT AND PLAN as follows : Complicated UTI hx recurrent neuroendocrine intra-abdominal carcinoma causing hydronephrosis status post nephrostomy tube placement, R Ongoing chemotherapy UA somewhat bland although potentially infected no sepsis for now History PE/DVT/IVC thrombus on therapeutic Lovenox anticoagulation COPD, past tobacco abuse as per records Pulmo status at baseline Chronic anemia, hemoglobin at baseline GMF Follow urine cultures, IV Ceftriaxone IVF DVT prophylaxis. Lovenox subcutaneous Full code (1) Pulmonary embolism Acute cor pulmonale presence: without acute cor pulmonale Chronicity: acute Pulmonary embolism type: unspecified Qualified Code(s): I26.99 - Other pulmonary embolism without acute cor pulmonale
[2018-05-25] MEDS ORDERED: TRAMADOL HCL 50 MG TABLET PO PRN (22:16)
[2018-05-25] MEDS ORDERED: MoRPHine SULFATE 4 MG/ML 1 ML CARP\\VIAL IV PRN (22:16)
[2018-05-25] MEDS ORDERED: ACETAMINOPHEN 325 MG TAB PO PRN (22:16)
[2018-05-25] MEDS ORDERED: PROCHLORPERAZINE 5 MG in SYRINGE 4 ML IV PRN (22:16)
[2018-05-25] MEDS ORDERED: SODIUM CHLORIDE 0.45 % 1,000 ML IV ONE (23:15)
[2018-05-25] MEDS ORDERED: LORazepam 0.5 MG TAB PO PRN (23:50)
[2018-05-26] MEDS: cefTRIAXone SODIUM 1,000 MG in DEXTROSE 5% 50 ML IV SCH ×2 (00:18→23:27)
[2018-05-26 06:10] LABS: Hematocrit (blood only) 28.8 % (37-47); Hemoglobin 9.3 g/dL (12.0-16.0); Mean Corpuscular Hgb Conc 32.3 g/dL (32-36); Mean Corpuscular Volume 118.5 fL (80-100); Mean Platelet Volume 9.9 fL (7.4-10.4); Nucleated RBC # (auto) 0.07 K/uL (0-0); Nucleated RBC % (auto) 1.3 %; Platelet Count 143 K/uL (130-400); RDW Coefficient of Variation 13.2 % (11.5-14.5); RDW Standard Deviation 56.9 fL (36.4-46.3); Red Blood Count 2.43 M/uL (4.2-5.4); White Blood Count 5.31 K/uL (4.8-10.8)
[2018-05-26 06:40] LABS: BUN Creatinine Ratio 8.8 (10-20); Calcium 7.9 mg/dl (8.5-10.1); Creatinine Clr Calc Pharmacy 48.6 ml/min; Est GFR (African American) 66.4; Est GFR (Non-African American) 57.3; Potassium 4.2 mmol/L (3.5-5.1)
[2018-05-26 06:59] LABS: ALC (manual) 0.73 K/uL (1.2-3.4); Basophils # (manual) 0.09 K/uL (0-0.2); Basophils % (manual) 1.7 %; Blast # (manual) 0.18 K/uL (0-0); Blast Cells % (manual) 3.4 %; Dohle Bodies 2+; Eosinophils # (manual) 0.05 K/uL (0-0.5); Eosinophils % (manual) 0.9 %; Lymphocytes # (manual) 0.73 K/uL (1.2-3.4); Lymphocytes % (manual) 13.7 %; Metamyelocytes # (manual) 0.09 K/uL (0-0); Metamyelocytes % (manual) 1.7 %; Monocytes # (manual) 0.18 K/uL (0.11-0.59); Monocytes % (manual) 3.4 %; Myelocytes # (manual) 0.32 K/uL (0-0); Neutrophils % (manual) 69.2 %; Toxic Granulation 3+
[2018-05-26] MEDS: ALLOPURINOL 300 MG TAB PO SCH (08:43)
[2018-05-26] MEDS: ENOXAPARIN INJ 60 MG/0.6 ML SYR SQ SCH ×2 (08:43→20:12)
[2018-05-26] MEDS: PARoxetine HCl 20 MG TAB PO SCH (08:43)
[2018-05-26] MEDS: TIOTROPIUM BROMIDE 5 PUFF/90 MCG INH INH SCH (08:45)
[2018-05-26] MEDS: BUDESONIDE/FORMOTEROL FUMARATE 160/4.5 60 PUFFS/INHALER INH SCH ×2 (08:45→20:11)
--- NOTE | 2018-05-26 14:49 | Hospitalist Progress Note ---
Date of Service May 26, 2018 Assessment & Plan (1) Pyelonephritis: Patient is a 63 yr female with H/O recurrent neuroendocrine carcinoma, moderate COPD, PE, IVC thrombus, essential thrombocytosis, retroperitoneal mass S/P core needle biopsy positive for neuroendocrine tumor, depression and anxiety who presents with chest pain that radiates to abdomen and right lower back. Acute Pyelonephritis: H/O Obstructive Uropathy S/P Nephrostomy tubes --CT ABD: right-sided percutaneous nephrostomy tube. Findings suggestive of Pyelonephritis, cystitis. Heterogeneous retroperitoneal mass lesion is unchanged and encases the aortic bifurcation, the IVC, and the right ureter. Thrombus is seen within the IVC and the right common iliac vein. Postoperative changes from right hemicolectomy with ileocolic anastomosis. No bowel obstruction is identified. Prominent epidural collaterals are again suggested within the lumbar region. Epidural tumor is considered less likely but would be impossible to completely exclude. Emphysema. 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 Chung, received cisplatin and etoposide cycle , with Neulasta injection on 05/18 to help prevent neutropenia Continue allopurinol Follow up with Oncology as outpatient Next Chemo scheduled-- 06/05 - 06/07 (3) Pulmonary embolism: IVC and Common Illiac Vein Thrombus: In setting of metastatic neuroendocrine carcinoma Continue Lovenox 60 mg SQ Q12H subcu every 12 hours (4) IVC thrombosis: (5) Anemia: Anemia of Chronic disease Monitor Hb (6) COPD (chronic obstructive pulmonary disease): No signs of exacerbation continue Symbicort, Spiriva (7) Full code status: DVT Px: SQ Lovenox Code Status Full Code Disposition: Expect to discharge home when stable Subjective Patient is seen and examined at bedside Doing well today Denies chest pain, SOB, dizziness, dysuria, abd pain Offers no other complaints Family at bedside Physical Exam Vital Signs (Past 24 Hours): Last Vital Signs Temp 36.4 C L 05/26/18 11:00 Pulse 68 05/26/18 11:00 Resp 18 05/26/18 11:00 BP 119/84 05/26/18 11:00 Pulse Ox 95 05/26/18 11:00 Physical Exam: Physical Exam: Vitals signs as noted above General Appearance:Moderately built and nourished, no apparent distress Head: normocephalic, Atraumatic Eyes: normal inspection, EOMI Neck: supple, Trachea midline Respiratory/Chest: Normal breath sounds, CTA Cardiovascular: S1, S2, No murmur Abdomen/GI:Soft, Non tender, Bowel sounds present, +Nephrostomy tube Extremities/Musculoskelatal:normal inspection, Trace edema Neurologic/Psych:AAOX3, grossly no focal neurological deficits Skin: normal color, warm (1) Pulmonary embolism Acute cor pulmonale presence: without acute cor pulmonale Chronicity: acute Pulmonary embolism type: unspecified Qualified Code(s): I26.99 - Other pulmonary embolism without acute cor pulmonale
[2018-05-26] MEDS ORDERED: Nursing to Pharmacy Communication ONE (20:10)
[2018-05-27 03:27] VITALS: TEMP 98.1
[2018-05-27 07:14] LABS: Hematocrit (blood only) 30.3 % (37-47); Hemoglobin 9.9 g/dL (12.0-16.0); Mean Corpuscular Hgb Conc 32.7 g/dL (32-36); Mean Corpuscular Volume 118.4 fL (80-100); Mean Platelet Volume 10.3 fL (7.4-10.4); Nucleated RBC # (auto) 0.07 K/uL (0-0); Nucleated RBC % (auto) 0.9 %; Platelet Count 163 K/uL (130-400); RDW Coefficient of Variation 13.6 % (11.5-14.5); RDW Standard Deviation 58.6 fL (36.4-46.3); Red Blood Count 2.56 M/uL (4.2-5.4); White Blood Count 7.98 K/uL (4.8-10.8)
[2018-05-27 07:50] LABS: BUN Creatinine Ratio 7.6 (10-20); Calcium 8.2 mg/dl (8.5-10.1); Creatinine Clr Calc Pharmacy 50.9 ml/min; Est GFR (African American) 70.4; Est GFR (Non-African American) 60.8; Magnesium 2.1 mg/dl (1.8-2.4); Potassium 4.1 mmol/L (3.5-5.1)
[2018-05-27] MEDS: PARoxetine HCl 20 MG TAB PO SCH (08:34)
[2018-05-27] MEDS: ALLOPURINOL 300 MG TAB PO SCH (08:34)
[2018-05-27] MEDS: ENOXAPARIN INJ 60 MG/0.6 ML SYR SQ SCH (08:34)
[2018-05-27] MEDS: BUDESONIDE/FORMOTEROL FUMARATE 160/4.5 60 PUFFS/INHALER INH SCH (08:35)
[2018-05-27] MEDS: TIOTROPIUM BROMIDE 5 PUFF/90 MCG INH INH SCH (08:35)
[2018-05-27 11:31] VITALS: O2SAT 97
--- NOTE | 2018-05-27 13:07 | Hospitalist Progress Note ---
Date of Service May 27, 2018 Assessment & Plan (1) Pyelonephritis: Patient is a 63 yr female with H/O recurrent neuroendocrine carcinoma, moderate COPD, PE, IVC thrombus, essential thrombocytosis, retroperitoneal mass S/P core needle biopsy positive for neuroendocrine tumor, depression and anxiety who presents with chest pain that radiates to abdomen and right lower back. Acute Pyelonephritis: H/O Obstructive Uropathy S/P Nephrostomy tubes --CT ABD: right-sided percutaneous nephrostomy tube. Findings suggestive of Pyelonephritis, cystitis. Heterogeneous retroperitoneal mass lesion is unchanged and encases the aortic bifurcation, the IVC, and the right ureter. Thrombus is seen within the IVC and the right common iliac vein. Postoperative changes from right hemicolectomy with ileocolic anastomosis. No bowel obstruction is identified. Prominent epidural collaterals are again suggested within the lumbar region. Epidural tumor is considered less likely but would be impossible to completely exclude. Emphysema. 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 Chung, received cisplatin and etoposide cycle , with Neulasta injection on 05/18 to help prevent neutropenia Continue allopurinol Follow up with Oncology as outpatient Next Chemo scheduled-- 06/05 - 06/07 (3) Pulmonary embolism: IVC and Common Illiac Vein Thrombus: In setting of metastatic neuroendocrine carcinoma Continue Lovenox 60 mg SQ Q12H subcu every 12 hours (4) IVC thrombosis: (5) Anemia: Anemia of Chronic disease Monitor Hb (6) COPD (chronic obstructive pulmonary disease): No signs of exacerbation continue Symbicort, Spiriva (7) Full code status: DVT Px: SQ Lovenox Code Status Full Code Disposition: Expect to discharge home when stable Subjective Patient is seen and examined at bedside Back pain resolved Offers no complaints Denies chest pain, SOB, dizziness, dysuria, abd pain, hematuria Family at bedside Physical Exam Vital Signs (Past 24 Hours): Last Vital Signs Temp 36.7 C 05/27/18 11:31 Pulse 83 05/27/18 11:31 Resp 16 05/27/18 11:31 BP 123/74 05/27/18 11:31 Pulse Ox 97 03/18/19 11:31 Physical Exam: Physical Exam: Vitals signs as noted above General Appearance:Moderately built and nourished, no apparent distress Head: normocephalic, Atraumatic Eyes: normal inspection, EOMI Neck: supple, Trachea midline Respiratory/Chest: Normal breath sounds, CTA Cardiovascular: S1, S2, No murmur Abdomen/GI:Soft, Non tender, Bowel sounds present, +Nephrostomy tube Extremities/Musculoskelatal:normal inspection, Trace edema Neurologic/Psych:AAOX3, grossly no focal neurological deficits Skin: normal color, warm (1) Pulmonary embolism Acute cor pulmonale presence: without acute cor pulmonale Chronicity: acute Pulmonary embolism type: unspecified Qualified Code(s): I26.99 - Other pulmonary embolism without acute cor pulmonale
--- NOTE | 2018-05-27 13:15 | Discharge Summary ---
Date of Service May 27, 2018 Admission HPI Per Admitting Provider This is a 63-year-old female who has a significant past medical history of recurrent neuroendocrine carcinoma, moderate COPD, history of PE, IVC thrombus, essential thrombocytosis, retroperitoneal mass status post core needle biopsy positive for neuroendocrine tumor, depression and anxiety who presents to [facility] secondary to chest pain that radiated to abdomen and right lower back since 3 AM. Pain awoke patient from sleep was rated as 10/10. Symptoms initially started in chest then went to abdomen and right side low back. Pain was worse with movement but improved with sitting. Also complained of trace lower extremity swelling. Denies any recent fever, chills, sweats, lightheadedness, dizziness, shortness of breath, palpitations, hemoptysis, cough, nausea, vomiting, diarrhea, dysuria, hematuria, frequency or urgency with urination. Patient recently confided [facility] 04/26 due to in which at that time she was diagnosed with right lower lobe PE and noted to have new retroperitoneal mass that encompassed right ureter and IVC in which subsequently developed right-sided hydronephrosis. She was transferred to [place] and underwent a right percutaneous nephrostomy tube. She follows with Dr. Fermín Chung for oncology it which she already started her first round of chemo on 05/15-10/28 and had Neulasta on 05/18/18. She does have a history of essential thrombocytosis however her to hydroxyurea was discontinued given concurrent chemotherapy treatment. She was also placed on allopurinol due to being at risk for tumor lysis syndrome. Admission Exam Per Admitting Provider PHYSICAL EXAMINATION: GENERAL: The patient is of moderate build, not in acute distress. VITAL SIGNS: Temperature 36.5, pulse 64, respiratory rate 16, blood pressure 171/84, oxygen 90% room air. HEENT: No pallor, no icterus. Pupils equal, round, and reactive to light. NECK: No JVD, no neck masses, no carotid bruits. CARDIOVASCULAR: S1, S2 heard, regular rate and rhythm, no murmur, no gallop. RESPIRATORY SYSTEM: Normal AP diameter. No accessory muscle use. No wheezing, no crackles. ABDOMEN: Soft, bowel sounds present. Nontender. No distention. CENTRAL NERVOUS SYSTEM: Cranial nerves II-XII grossly intact. Nonfocal. EXTREMITIES: Lower extremity edema present, no erythema seen. Principal Diagnosis Discharge Information Discharge Diagnosis Complicated UTI Discharge Goals Decrease discomfort,Improve disease control, Improve function Discharge Activity Limitations Resume your previous activity Discharge Data Allergies Allergy/AdvReac Type Severity Reaction Status Date / Time No Known Allergies Allergy Verified 05/25/18 17:18 Consultations 05/25/18 20:33 ED Decision to Admit Stat Procedures Performed CT ABD: 1. A right-sided percutaneous nephrostomy tube is new from 04/24/2018. Hydronephrosis of the right kidney has resolved. 2. There is heterogeneously diminished enhancement of the right kidney as compared to the left with surrounding inflammatory change. Additionally, there is inflammation around the right renal pelvis and the right ureter with associated urothelial thickening and enhancement. Correlate clinically for evidence of urinary tract infection/pyelonephritis. 3. The appearance of the bladder suggests cystitis. Correlation with clinical findings and urinalysis will be required. 4. A heterogeneous retroperitoneal mass lesion is unchanged and encases the aortic bifurcation, the IVC, and the right ureter. 5. Thrombus is again seen within the IVC and the right common iliac vein. 6. There are postoperative changes from right hemicolectomy with ileocolic anastomosis. No bowel obstruction is identified. 7. Prominent epidural collaterals are again suggested within the lumbar region. Epidural tumor is considered less likely but would be impossible to completely exclude. 8. Emphysema. 9. Additional findings as above. CXR: Emphysematous change with no acute cardiopulmonary abnormality. Ordered Studies 05/25/18 17:04 CT abd pelvis IV con only Stat Hospital Course (1) Pyelonephritis: Patient is a 63 yr female with H/O recurrent neuroendocrine carcinoma, moderate COPD, PE, IVC thrombus, essential thrombocytosis, retroperitoneal mass S/P core needle biopsy positive for neuroendocrine tumor, depression and anxiety who presents with chest pain that radiates to abdomen and right lower back. Acute Pyelonephritis: H/O Obstructive Uropathy S/P Nephrostomy tubes --CT ABD: right-sided percutaneous nephrostomy tube. Findings suggestive of Pyelonephritis, cystitis. Heterogeneous retroperitoneal mass lesion is unchanged and encases the aortic bifurcation, the IVC, and the right ureter. Thrombus is seen within the IVC and the right common iliac vein. Postoperative changes from right hemicolectomy with ileocolic anastomosis. No bowel obstruction is identified. Prominent epidural collaterals are again suggested within the lumbar region. Epidural tumor is considered less likely but would be impossible to completely exclude. Emphysema. 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 Chung, received cisplatin and etoposide cycle , with Neulasta injection on 05/18 to help prevent neutropenia Continue allopurinol Follow up with Oncology as outpatient Next Chemo scheduled-- 06/05 - 06/07 (3) Pulmonary embolism: IVC and Common Illiac Vein Thrombus: In setting of metastatic neuroendocrine carcinoma Continue Lovenox 60 mg SQ Q12H subcu every 12 hours (4) IVC thrombosis: (5) Anemia: Anemia of Chronic disease Monitor Hb (6) COPD (chronic obstructive pulmonary disease): No signs of exacerbation continue Symbicort, Spiriva (7) Full code status: DVT Px: SQ Lovenox Code Status Full Code Disposition: Expect to discharge home when stable Total Time Total Time Spent Total Time Spent (In Minutes): 36 minutes Total Time Includes: Examination of the Patient, Discharge Planning, Medication Reconciliation and Other Discharge Plan Discharge Items Patient Disposition: Home - Self-Care Reason For Visit: COMPLICATED UTI Discharge Diagnosis: Complicated UTI Discharge Goals: Decrease discomfort, Improve disease control and Improve func tion Activity: Resume your previous activity Exercise/Sports: Gradually increase as tolerated Non-emergency contact: Primary Care Provider and Urologist Call non-emergency contact if: you have any medication questions, your symptoms worsen, your pain is not controlled, your pain is worsening, your pain is unusual for you, your pain is concerning for you, you have a fever and your temperature is above 100.5 Follow-up/Referrals: Zahida Mcgill [Primary Care Provider] - Diet: Heart Healthy Addtl Provider Instructions: Follow up with your PCP on 05/31/18 at 1:00pm Follow up with your Urologist in [facility] as advised Complete the antibiotic course as prescribed--Start taking Ciprofloxacin from 05/28/18 as your already received IV antibiotic today Seek immediate medical attention if your symptoms reoccur or worsen Prescriptions: New ciprofloxacin HCl 500 mg tablet 500 mg PO Q12H 5 Days Qty: 10 RF: 0 Continued lorazepam 0.5 mg tablet 0.5 mg PO BID PRN (Reason: Anxiety) RF: 0 paroxetine HCl 20 mg tablet 30 mg PO QAM RF: 0 calcium carbonate [Tums] 300 mg (750 mg) Tablet,Chewable 300 mg PO DIRECTED PRN (Reason: Indigestion) RF: 0 albuterol sulfate [ProAir HFA] 90 mcg/actuation Hfa Aerosol Inhaler 2 puff INHALATION Q6H PRN (Reason: Shortness Of Breath Or Wheezing) RF: 0 ondansetron HCl 8 mg tablet 8 mg PO Q8H PRN (Reason: Nausea) RF: 0 prochlorperazine maleate 10 mg tablet 10 mg PO Q6H PRN (Reason: Nausea) RF: 0 allopurinol 300 mg tablet 300 mg PO QAM RF: 0 Neulasta 6 mg/0.6mL syringe 6 mg subcut UD RF: 0 enoxaparin 80 mg/0.8 mL syringe 0.6 ml subcut Q12H RF: 0 Symbicort 160-4.5 mcg/actuation Hfa Aerosol Inhaler 2 puff INHALATION Q12H RF: 0 Spiriva Respimat 2.5 mcg/actuation Mist 2 puff INHALATION DAILY RF: 0 Stand-Alone Forms: Call Back Authorization, [facility] Discharge Orders: Discharge Order (Routine); Ordered 05/27/18 Ordered By: Rahat Pacheco Admission Data Admit Date/Time: 05/25/18 22:13 Attending Provider: Rahat Pacheco Admit Provider: Bryant Crawley Primary Care Provider: Zahida Mcgill Other Providers: Bryant Crawley Service: Medical Other Interventions: Discharge Summary Assessment (RN) Last Done: 05/27/18 13:30 Pending Studies at Discharge: No DC Date/Time DO NOT enter until pt leaves facility: 05/27/18 13:45
[2018-05-27 13:31] VITALS: BP 103/66; PULSE 75
== END 2018-05-27 13:45 | disposition home or self-care (01) | DRG 689 ==
LOC: ED 16:48 → 4E 22:13

== ENCOUNTER 2018-10-13 15:05 | Inpatient (IN) ==
[2018-10-13] MEDS ORDERED: SODIUM CHLORIDE 0.9% 1000ML 1,000 ML IV ONE (15:31)
[2018-10-13] MEDS ORDERED: ONDANSETRON INJ 2 MG/ML 2 ML VIAL IV STA (15:31)
[2018-10-13] MEDS: MoRPHine SULFATE 4 MG/ML 1 ML CARP\\VIAL IV PRN ×3 (16:06→21:12)
[2018-10-13 16:15] LABS: Basophils # (auto) 0.01 K/uL (0-0.2); Basophils % (auto) 0.1 %; Eosinophils # (auto) 0.01 K/uL (0-0.5); Eosinophils % (auto) 0.1 %; Hematocrit (blood only) 31.9 % (37-47); Hemoglobin 10.2 g/dL (12.0-16.0); Immature Granulocytes # (auto) 0.02 K/uL (0.00-0.02); Immature Granulocytes % (auto) 0.2 %; Lymphocytes # (auto) 0.18 K/uL (1.2-3.4); Lymphocytes % (auto) 2.2 %; Mean Corpuscular Volume 89.4 fL (80-100); Mean Platelet Volume 9.4 fL (7.4-10.4); Monocytes % (auto) 3.7 %; Neutrophils # (auto) 7.64 K/uL (1.4-6.5); Neutrophils % (auto) 93.7 %; Platelet Count 289 K/uL (130-400); RDW Coefficient of Variation 18.1 % (11.5-14.5); RDW Standard Deviation 59.2 fL (36.4-46.3); Red Blood Count 3.57 M/uL (4.2-5.4); White Blood Count 8.16 K/uL (4.8-10.8)
[2018-10-13 16:29] LABS: Prothrombin Time 10.4 Seconds (9.0-12.0)
[2018-10-13 16:40] LABS: Alanine Aminotransferase 74 U/L (12-78); Albumin Level 2.8 gm/dl (3.4-5.0); Aspartate Aminotransferase 47 U/L (15-37); Blood Urea Nitrogen 11 mg/dl (7-18); Carbon Dioxide 23 mmol/L (21-32); Chloride 104 mmol/L (98-107); Est GFR (African American) 88.2; Est GFR (Non-African American) 76.1; Glucose 98 mg/dl (70-99); Magnesium 1.8 mg/dl (1.8-2.4); Potassium 3.4 mmol/L (3.5-5.1); Sodium 136 mmol/L (136-145)
[2018-10-13 16:42] LABS: Albumin Globulin Ratio 0.9 (0.9-2); Alkaline Phosphatase 487 U/L (45-117); Bilirubin,Total 0.8 mg/dl (0.2-1); Globulin 3.1 gm/dl (2.5-4.0); Total Protein 5.9 gm/dl (6.4-8.2)
[2018-10-13] MEDS ORDERED: IOVERSOL 100ml IV PRN (17:44)
[2018-10-13 18:08] LABS: Appearance Urine Clear (Clear); Bilirubin Urine Negative (Negative); Blood Urine Negative (Negative); Color Urine Orange; Glucose Urine UA Negative (Negative); Ketones Urine 1+ (Negative); Leukocyte Esterase Urine Negative (Negative); Nitrite Urine Negative (Negative); Protein Urine Negative (Negative); Specific Gravity Urine 1.016 (1.000-1.030); Urobilinogen Urine Negative (Negative)
[2018-10-13 18:12] LABS: Appearance Urine Cloudy (Clear); Bacteria Urine Automated 1+ (Negative); Bilirubin Urine Negative (Negative); Blood Urine Trace (Negative); Color Urine Yellow; Epithelial Cell Urine Auto 0-5 /lpf (0-5); Glucose Urine UA Negative (Negative); Ketones Urine 1+ (Negative); Leukocyte Esterase Urine 3+ (Negative); Nitrite Urine Positive (Negative); Protein Urine 1+ (Negative); Specific Gravity Urine 1.011 (1.000-1.030); Urobilinogen Urine Negative (Negative); WBC Urine Automated >30 /hpf (0-5)
--- NOTE | 2018-10-13 18:27 | CT Scan Report ---
ABDOMEN AND PELVIS CT WITH IV CONTRAST CT DOSE: 248.12 mGy.cm HISTORY: Lower abdominal pain. History of malignancy. TECHNIQUE: Multiaxial CT images of the abdomen and pelvis were performed following the use of intrave nous contrast. A dose lowering technique was utilized adhering to the principles of ALARA. COMPARISON STUDY: PET/CT 07/15/2018. Abdomen and pelvis CT 07/09/2018. FINDINGS: Emphysema. No pneumoperitoneum. No pneumatosis. No suspicious lytic or blastic osseous lesi ons. Retrocrural lymphadenopathy has progressed. Dominant retrocrural lymph node measures 13 mm. No h epatic or splenic masses. The adrenal glands, pancreas, and gallbladder are unremarkable. Right-sided percutaneous nephrostomy tube appears in good position. Slight delayed right-sided nephrogram. Mild- to-moderate dilatation of right renal pelvis which has progressed. However, the right ureter is tanya l in caliber. The bladder is unremarkable. The IVC and right common iliac vein thrombosis is not sign ificantly changed. The infiltrative retroperitoneal mass at the aortic bifurcation is also similar to the prior study. Left gonadal/pelvic vein varicosities persist. Some of these demonstrate central hy podensity and could be partially thrombosed. The main portal vein remains patent. Trace ascites. Evid ence for prior bowel anastomosis. Perirectal inflammatory change/edema. There is abnormal thickening in the sigmoid colon and rectum. Is also a focal area of narrowing at the rectosigmoid junction best seen image 267. The proximal sigmoid colon which is mildly distended and filled with stool colon prox imal to this area of narrowing is mildly distended and stool-filled. Areas of subtle nodularity along the peritoneal linings concerning for developing peritoneal carcinomatosis. Dominant enhancing nodul ar density within the right lower quadrant on image 261 measures 5 mm. IMPRESSION: 1. Abnormal thickening involving the sigmoid colon and rectum. This favors a proctocolitis. There is also focal narrowing at the rectosigmoid junction with mild dilatation the colon proximal to this loc ation. Therefore, this is concerning for developing large bowel obstruction. Of note, the focal area of narrowing at the rectosigmoid junction could be due to the inflammatory/infectious change or a pos sible lesion. 2. The heterogeneous retroperitoneal mass is again noted and similar to the prior study. There is ass ociated thrombus within the IVC and right iliac vein. 3. Progressive retrocrural lymphadenopathy. 4. Trace ascites. There is also suggestion of subtle nodularity along the peritoneal linings as descr ibed above. Therefore, this is concerning for developing perineal carcinomatosis. 5. Left gonadal/pelvic pain varicosities. These demonstrate central hypodensity raising the possibili ty of partial thrombosis. The hypodensity could also be related to spread of tumor. This bears watchi ng on future examinations. 6. Mild to moderate dilatation of the right renal pelvis which has progressed. However, the right ure ter is normal in caliber. In addition, the percutaneous nephrostomy tube appears in good position. 7. Additional findings as described above. Electronically signed by: Rush Matthews M.D. 10/13/2018 6:25 PM
[2018-10-13 18:34] LABS: RBC Urine Automated 0-4 /hpf (0-4)
[2018-10-13] MEDS ORDERED: cefTRIAXone SODIUM 1,000 MG/50 ML BAG IV STA (18:48)
[2018-10-13] MEDS ORDERED: POTASSIUM CHLORIDE 20 MEQ TABCR PO STA (19:35)
--- NOTE | 2018-10-13 20:19 | Emergency Department Note ---
Entered by Marla Melgar acting as a scribe for Willy Connelly MD History of Present Illness General Chief complaint: GI Assessment Stated complaint: HURTING BELLY,BOWELS,VAGINA Time Seen by Provider: 10/13/18 15:20 Source: patient History of Present Illness Onset (ago): day(s) 1 Location: abdomen Pain Consistency: + other (worsening) Maximum Pain Intensity: 8 Quality: + other ("pressure") Associated symptoms: + fever/chills and + other (diarrhea, weight loss, blood in stools, bowel pressure, and vaginal pressure); no nausea/vomiting The patient is a 63 year old F who presents to the Emergency Room with complaints of worsening abdominal pain that started 1 day ago. She describes her abdominal pain as a pressure. She states that she has been experiencing severe diarrhea, weight loss, fevers, blood in stools, bowel pressure, and vaginal pressure. She states that her bowel pressure has been keeping her up all night. She adds that she has tried to push her bowels to have a bowel movement, but not es that little stool comes out. She states that this is also what occurs with her urinary system. She notes that she tries to push, but little urine comes out. She denies currently experiencing nausea and vomiting. She states that she did not try to push hard, yesterday night, because she felt that her vagina and colon would come out if she pushed too hard. She notes that she has been eating and drinking regularly. She states that she is currently getting Lovenox injections for a blood clot. She adds that she has a nephrostomy in place. She notes that she normally takes oxycodone for pain. A review of the patients records show that the patient has a high-grade neuroendocrine carcinoma of the cecum. The records state that the patients cancere is unresectable. The records show that the patient gets radiation treatment, with her last documented treatment on September 27. Home Medications Home Medications Medication Instructions Recorded Confirmed Type albuterol sulfate [ProAir HFA] 2 puff INHALATION Q6H PRN 04/24/18 10/13/18 History lorazepam 0.5 mg PO BID PRN 04/24/18 10/13/18 History paroxetine HCl 30 mg PO QAM 04/24/18 10/13/18 History Spiriva Respimat 2 puff INHALATION DAILY 05/25/18 10/13/18 History Symbicort 2 puff INHALATION DAILY 05/25/18 10/13/18 History allopurinol 300 mg PO HS 05/25/18 10/13/18 History prochlorperazine maleate 10 mg PO Q6H PRN 05/25/18 10/13/18 History oxycodone 5 mg tablet 5 mg PO Q4H PRN tab 08/12/18 10/13/18 History morphine ER 15 mg tablet,extended 15 mg PO Q12H PRN 08/26/18 10/13/18 History release diphenoxylate-atropine 2.5 1 tab PO Q6H PRN #60 tab 09/23/18 10/13/18 Rx mg-0.025 mg tablet enoxaparin 55 mg SUBCUT Q12H 10/13/18 10/13/18 History simethicone [Gas Relief] 80 mg PO DIRECTED PRN 10/13/18 10/13/18 History Allergies Allergy/AdvReac Type Severity Reaction Status Date / Time No Known Allergies Allergy Verified 10/13/18 16:01 Past Med/Surg History Medical History 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 S/P neoadjuvant modified FOLFOX 6 chemotherapy x 5 -Oxaliplatin induced the liver toxicity, received 5-Fluorouracil leucovorin x 7. Last cycle received on 02/12/2018. S/P right hemicolectomy on 03/23/2017 (by Dr. Cheng). 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 KRAS and BRAF mutation-->negative. 04/2018: -recurrent high-grade neuroendocrine carcinoma involving the retroperitoneal lymph regan region causing right hydronephrosis, S/P percutaneous nephrostomy drainage. -IVC thrombus, pulmonary embolism. - Essential thrombocythemia diagnosed in 2005, JAK2 mutation positive platelet count was over 1 million at that time the diagnosis. She is on hydroxyurea for that." Metastatic disease (Chronic) IVC thrombosis (Chronic) Pulmonary embolism (Chronic) Thrombocytosis (Chronic) Colon cancer (Chronic) S/P right hemicolectomy on 03/23/2017 (by Dr. Cheng). 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 COPD (chronic obstructive pulmonary disease) (Chronic) Surgical History H/O rotator cuff surgery (Chronic) History of arthroscopy of left knee (Chronic) S/P removal of right ovary (Chronic) History of partial surgical removal of colon (Chronic) Family History Grandmother (Paternal) , of childbirth No problems noted. Grandfather (Paternal) , of lung cancer at age 7 No problems noted. Father , of protsate cancer No problems noted. Mother , of breas cancer with metastasis to lung and brain No problems noted. Brother Age: 63 Prostate cancer Brother Age: 57 Prostate cancer Sister Age: 50 No problems noted. Daughter Age: 27 No problems noted. 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 and A total of 10 systems reviewed and were otherwise negative Physical Exam Vital Signs Vital Signs - 24 hr 10/13/18 15:17 10/13/18 16:11 10/13/18 18:03 Temperature 37.2 C Temperature Source Oral Sepsis Recent Fever Within 48 Hours No Sepsis Action Taken by Nursing No Action Required Pulse Rate 95 H Pulse Rate [Finger] 81 81 Respiratory Rate 20 22 16 Respiratory Effort / Characteristics Non-Labored Non-Labored Respiratory Depth Normal Normal Blood Pressure 102/69 Blood Pressure [Right Arm] 119/72 101/61 Blood Pressure Mean 80 Blood Pressure Mean [Right Arm] 87 74 Pulse Oximetry 96 93 95 Oxygen Delivery Method Room Air Room Air Room Air 10/13/18 19:22 10/13/18 19:54 10/13/18 21:09 Temperature Temperature Source Sepsis Recent Fever Within 48 Hours Sepsis Action Taken by Nursing Pulse Rate Pulse Rate [Finger] 78 91 H 75 Respiratory Rate 22 20 19 Respiratory Effort / Characteristics Respiratory Depth Blood Pressure Blood Pressure [Right Arm] 101/55 L 102/63 113/62 Blood Pressure Mean Blood Pressure Mean [Right Arm] 70 76 79 Pulse Oximetry 94 94 94 Oxygen Delivery Method Room Air Room Air Room Air GENERAL: Patient is in no acute distress. HEENT: No acute trauma, normocephalic atraumatic, mucous membranes moist, no nasal congestion, no scleral icterus. NECK: No stridor, no adenopathy, no meningismus, trachea is midline. LUNGS: Clear to auscultation bilaterally, no wheeze, no rhonchi, breath sounds equal. HEART: Without murmurs gallops or rubs, regular rate and rhythm. ABDOMEN: Diffusely tender, no true peritonitis, bowel sounds positive, abdominal wall contusions consistent with Lovenox injections, no obvious hernia, mild distention noted. BACK: Right-sided percutaneous nephrostomy noted. EXTREMITIES: No cyanosis or edema, full range of motion of all the joints without pain or difficulty, no signs for acute trauma. NEUROLOGIC: Oriented x 3, no acute motor or sensory deficits, no focal weakness. SKIN: No rash, no jaundice, no diaphoresis. Course 152: The patient was evaluated in room B5. A complete history and physical exam was performed. 1854: I updated the patient on her test results and the plan. The patient is agreeable for admission. 1918: I reviewed the patient's case with BLANCA Benavidez Hospitalist. She will evaluate the patient for further management. Consultations Consultation #1: I reviewed the patient's case with BLANCA Benavidezist. She will evaluate the patient for further management. Time: 19:18 Administered Medications Metronidazole (Flagyl) 500 mg in 100 mls @ 100 mls/hr IV ONE STA Stop: 10/13/18 22:02 Last Admin: 10/13/18 21:06 Dose: 100 mls/hr Documented by: [id number] Ioversol (Optiray 320 100ml) 90 ml IV ONCE PRN PRN Reason: Interaction Checking Stop: 10/17/18 17:43 Last Admin: 10/13/18 17:44 Dose: 90 ml Documented by: [id number] Morphine Sulfate (Morphine Sulfate) 4 mg IV Q15M PRN PRN Reason: Pain Stop: 10/27/18 15:30 Last Admin: 10/13/18 21:12 Dose: 4 mg Documented by: [id number] Admin: 10/13/18 19:18 Dose: 4 mg Documented by: [id number] Admin: 10/13/18 16:06 Dose: 4 mg Documented by: [id number] Discontinued Medications Sodium Chloride (Nss 1000ml) 1,000 mls @ 999 mls/hr IV .Q1H1M ONE Stop: 10/13/18 16:31 Last Infusion: 10/13/18 17:09 Dose: 0 mls/hr Documented by: [id number] Admin: 10/13/18 16:06 Dose: 999 mls/hr Documented by: [id number] Ceftriaxone Sodium (Rocephin) 1,000 mg in 50 mls @ 100 mls/hr IV NOW STA Stop: 10/13/18 19:17 Last Infusion: 10/13/18 19:56 Dose: 0 mls/hr Documented by: [id number] Admin: 10/13/18 19:18 Dose: 100 mls/hr Documented by: [id number] Ondansetron HCl (Zofran) 4 mg IV NOW STA Stop: 10/13/18 15:32 Last Admin: 10/13/18 16:06 Dose: 4 mg Documented by: [id number] Potassium Chloride (Klor-Con M20) 40 meq PO NOW STA Stop: 10/13/18 19:36 Last Admin: 10/13/18 19:52 Dose: 40 meq Documented by: [id number] Medical Decision Making Differential Diagnosis Differential diagnosis includes: worsening malignancy, urinary infection, urinary retention, abscess, diverticulitis, fistula, dehydration, pancreatitis, partial bowel obstruction Medical Records Attestation: I reviewed the patient's medical records. Home Medications Current Medication List: was personally reviewed by me Laboratory Data Attestation: I reviewed the patient's lab results. Result diagrams: 10/13/18 15:49 10/13/18 15:49 Lab Results 10/13/18 10/13/18 10/13/18 Range/Units 15:49 15:49 15:49 WBC 8.16 (4.8-10.8) K/uL RBC 3.57 L (4.2-5.4) M/uL Hgb 10.2 L (12.0-16.0) g/dL Hct 31.9 L (37-47) % MCV 89.4 (80-100) fL MCH 28.6 (25-34) pg MCHC 32.0 (32-36) g/dL RDW Std Deviation 59.2 H (36.4-46.3) fL RDW Coeff of Ysabel 18.1 H (11.5-14.5) % Plt Count 289 (130-400) K/uL MPV 9.4 (7.4-10.4) fL Immature Gran % (Auto) 0.2 % Neut % (Auto) 93.7 % Lymph % (Auto) 2.2 % [place] % (Auto) 3.7 % Eos % (Auto) 0.1 % Baso % (Auto) 0.1 % Immature Gran # (Auto) 0.02 (0.00-0.02) K/uL Neut # (Auto) 7.64 H (1.4-6.5) K/uL Lymph # (Auto) 0.18 L (1.2-3.4) K/uL [place] # (Auto) 0.30 (0.11-0.59) K/uL Eos # (Auto) 0.01 (0-0.5) K/uL Baso # (Auto) 0.01 (0-0.2) K/uL PT 10.4 (9.0-12.0) Seconds INR 1.0 (0.9-1.1) APTT (21.0-31.0) Seconds PTT Ratio Sodium 136 (136-145) mmol/L Potassium 3.4 L (3.5-5.1) mmol/L Chloride 104 (98-107) mmol/L Carbon Dioxide 23 (21-32) mmol/L Anion Gap 9.0 (3-11) BUN 11 (7-18) mg/dl Creatinine 0.83 (0.6-1.2) mg/dl Est Cr Clr Drug Dosing Not Reportable Est GFR ( Amer) 88.2 Est GFR (Non-Af Amer) 76.1 BUN/Creatinine Ratio 13.0 (10-20) Glucose 98 (70-99) mg/dl Lactate (0.4-2.0) mmol/L Calcium 8.0 L (8.5-10.1) mg/dl Magnesium 1.8 (1.8-2.4) mg/dl Total Bilirubin 0.8 (0.2-1) mg/dl AST 47 H (15-37) U/L ALT 74 (12-78) U/L Alkaline Phosphatase 487 H (45-117) U/L Total Protein 5.9 L (6.4-8.2) gm/dl Albumin 2.8 L (3.4-5.0) gm/dl Globulin 3.1 (2.5-4.0) gm/dl Albumin/Globulin Ratio 0.9 (0.9-2) Lipase 19 L (73-393) U/L Urine Color Urine Appearance (Clear) Urine pH (4.5-7.5) Ur Specific [place] (1.000-1.030) Urine Protein (Negative) Urine Glucose (UA) (Negative) Urine Ketones (Negative) Urine Blood (Negative) Urine Nitrite (Negative) Urine Bilirubin (Negative) Urine Urobilinogen (Negative) Ur Leukocyte Esterase (Negative) Urine WBC (Auto) (0-5) /hpf Urine RBC (Auto) (0-4) /hpf U Hyaline Cast (Auto) (0-5) /lpf U Epithel Cells (Auto) (0-5) /lpf Urine Bacteria (Auto) (Negative) 10/13/18 10/13/1810/13/19 Range/Units 15:49 15:49 17:15 WBC (4.8-10.8) K/uL RBC (4.2-5.4) M/uL Hgb (12.0-16.0) g/dL Hct (37-47) % MCV (80-100) fL MCH (25-34) pg MCHC (32-36) g/dL RDW Std Deviation (36.4-46.3) fL RDW Coeff of Ysabel (11.5-14.5) % Plt Count (130-400) K/uL MPV (7.4-10.4) fL Immature Gran % (Auto) % Neut % (Auto) % Lymph % (Auto) % [place] % (Auto) % Eos % (Auto) % Baso % (Auto) % Immature Gran # (Auto) (0.00-0.02) K/uL Neut # (Auto) (1.4-6.5) K/uL Lymph # (Auto) (1.2-3.4) K/uL [place] # (Auto) (0.11-0.59) K/uL Eos # (Auto) (0-0.5) K/uL Baso # (Auto) (0-0.2) K/uL PT (9.0-12.0) Seconds INR (0.9-1.1) APTT 42.1 H (21.0-31.0) Seconds PTT Ratio 1.6 Sodium (136-145) mmol/L Potassium (3.5-5.1) mmol/L Chloride (98-107) mmol/L Carbon Dioxide (21-32) mmol/L Anion Gap (3-11) BUN (7-18) mg/dl Creatinine (0.6-1.2) mg/dl Est Cr Clr Drug Dosing Est GFR ( Amer) Est GFR (Non-Af Amer) BUN/Creatinine Ratio (10-20) Glucose (70-99) mg/dl Lactate 0.5 (0.4-2.0) mmol/L Calcium (8.5-10.1) mg/dl Magnesium (1.8-2.4) mg/dl Total Bilirubin (0.2-1) mg/dl AST (15-37) U/L ALT (12-78) U/L Alkaline Phosphatase (45-117) U/L Total Protein (6.4-8.2) gm/dl Albumin (3.4-5.0) gm/dl Globulin (2.5-4.0) gm/dl Albumin/Globulin Ratio (0.9-2) Lipase (73-393) U/L Urine Color [place] Urine Appearance Clear (Clear) Urine pH 5.0 (4.5-7.5) Ur Specific [place] 1.016 (1.000-1.030) Urine Protein Negative (Negative) Urine Glucose (UA) Negative (Negative) Urine Ketones 1+ H (Negative) Urine Blood Negative (Negative) Urine Nitrite Negative (Negative) Urine Bilirubin Negative (Negative) Urine Urobilinogen Negative (Negative) Ur Leukocyte Esterase Negative (Negative) Urine WBC (Auto) (0-5) /hpf Urine RBC (Auto) (0-4) /hpf U Hyaline Cast (Auto) (0-5) /lpf U Epithel Cells (Auto) (0-5) /lpf Urine Bacteria (Auto) (Negative) 10/13/18 Range/Units 17:15 WBC (4.8-10.8) K/uL RBC (4.2-5.4) M/uL Hgb (12.0-16.0) g/dL Hct (37-47) % MCV (80-100) fL MCH (25-34) pg MCHC (32-36) g/dL RDW Std Deviation (36.4-46.3) fL RDW Coeff of Ysabel (11.5-14.5) % Plt Count (130-400) K/uL MPV (7.4-10.4) fL Immature Gran % (Auto) % Neut % (Auto) % Lymph % (Auto) % [place] % (Auto) % Eos % (Auto) % Baso % (Auto) % Immature Gran # (Auto) (0.00-0.02) K/uL Neut # (Auto) (1.4-6.5) K/uL Lymph # (Auto) (1.2-3.4) K/uL [place] # (Auto) (0.11-0.59) K/uL Eos # (Auto) (0-0.5) K/uL Baso # (Auto) (0-0.2) K/uL PT (9.0-12.0) Seconds INR (0.9-1.1) APTT (21.0-31.0) Seconds PTT Ratio Sodium (136-145) mmol/L Potassium (3.5-5.1) mmol/L Chloride (98-107) mmol/L Carbon Dioxide (21-32) mmol/L Anion Gap (3-11) BUN (7-18) mg/dl Creatinine (0.6-1.2) mg/dl Est Cr Clr Drug Dosing Est GFR ( Amer) Est GFR (Non-Af Amer) BUN/Creatinine Ratio (10-20) Glucose (70-99) mg/dl Lactate (0.4-2.0) mmol/L Calcium (8.5-10.1) mg/dl Magnesium (1.8-2.4) mg/dl Total Bilirubin (0.2-1) mg/dl AST (15-37) U/L ALT (12-78) U/L Alkaline Phosphatase (45-117) U/L Total Protein (6.4-8.2) gm/dl Albumin (3.4-5.0) gm/dl Globulin (2.5-4.0) gm/dl Albumin/Globulin Ratio (0.9-2) Lipase (73-393) U/L Urine Color Yellow Urine Appearance Cloudy A (Clear) Urine pH 5.0 (4.5-7.5) Ur Specific [place] 1.011 (1.000-1.030) Urine Protein 1+ H (Negative) Urine Glucose (UA) Negative (Negative) Urine Ketones 1+ H (Negative) Urine Blood Trace H (Negative) Urine Nitrite Positive A (Negative) Urine Bilirubin Negative (Negative) Urine Urobilinogen Negative (Negative) Ur Leukocyte Esterase 3+ H (Negative) Urine WBC (Auto) >30 H (0-5) /hpf Urine RBC (Auto) 0-4 (0-4) /hpf U Hyaline Cast (Auto) 1-5 (0-5) /lpf U Epithel Cells (Auto) 0-5 (0-5) /lpf Urine Bacteria (Auto) 1+ H (Negative) Imaging Data Radiologist's Impression: Radiology results as stated below per my review and the radiologist's interpretation: ABDOMEN AND PELVIS CT WITH IV CONTRAST CT DOSE: 248.12 mGy.cm HISTORY: Lower abdominal pain. History of malignancy. TECHNIQUE: Multiaxial CT images of the abdomen and pelvis were performed following the use of intravenous contrast. A dose lowering technique was utilized adhering to the principles of ALARA. COMPARISON STUDY: PET/CT 07/15/2018. Abdomen and pelvis CT 07/09/2018. FINDINGS: Emphysema. No pneumoperitoneum. No pneumatosis. No suspicious lytic or blastic osseous lesions. Retrocrural lymphadenopathy has progressed. Dominant retrocrural lymph node measures 13 mm. No hepatic or splenic masses. The adrenal glands, pancreas, and gallbladder are unremarkable. Right-sided percutaneous nephrostomy tube appears in good position. Slight delayed right-sided nephrogram. [id number]-dy-[id number] dilatation of right renal pelvis which has progressed. However, the right ureter is normal in caliber. The bladder is unremarkable. The IVC and right common iliac vein thrombosis is not significantly changed. The infiltrative retroperitoneal mass at the aortic bifurcation is also similar to the prior study. Left gonadal/pelvic vein v aricosities persist. Some of these demonstrate central hypodensity and could be partially thrombosed. The main portal vein remains patent. Trace ascites. Evidence for prior bowel anastomosis. Perirectal inflammatory change/edema. There is abnormal thickening in the sigmoid colon and rectum. Is also a focal area of narrowing at the rectosigmoid junction best seen image 267. The proximal sigmoid colon which is mildly distended and filled with stool colon proximal to this area of narrowing is mildly distended and stool-filled. Areas of subtle nodularity along the peritoneal linings concerning for developing peritoneal carcinomatosis. Dominant enhancing nodular density within the right lower melania drant on image 261 measures 5 mm. IMPRESSION: 1. Abnormal thickening involving the sigmoid colon and rectum. This favors a proctocolitis. There is also focal narrowing at the rectosigmoid junction with mild dilatation the colon proximal to this location. Therefore, this is concerning for developing large bowel obstruction. Of note, the focal area of narrowing at the rectosigmoid junction could be due to the inflammatory/infectious change or a possible lesion. 2. The heterogeneous retroperitoneal mass is again noted and similar to the prior study. There is associated thrombus within the IVC and right iliac vein. 3. Progressive retrocrural lymphadenopathy. 4. Trace ascites. There is also suggestion of subtle nodularity along the peritoneal linings as described above. Therefore, this is concerning for developing perineal carcinomatosis. 5. Left gonadal/pelvic pain varicosities. These demonstrate central hypodensity raising the possibility of partial thrombosis. The hypodensity could also be related to spread of tumor. This bears watching on future examinations. 6. Mild to moderate dilatation of the right renal pelvis which has progressed. However, the right ureter is normal in caliber. In addition, the percutaneous nephrostomy tube appears in good position. 7. Additional findings as described above. Electronically signed by: Rush Matthews M.D. 10/13/2018 6:25 PM Blood Pressure Blood Pressure Findings: Normal blood pressure Blood Pressure Disposition: did not require urgent referral MDM Narrative There is no leukocytosis. The patient is anemic but this is baseline looking back at previous testing. INR is not elevated. Potassium slightly low at 3.4. No kidney failure. Liver enzymes were somewhat elevated, the bilirubin though was normal. Patient did not have pancreatitis by our testing. The urine from the right nephrostomy tube does appear to show infection. The urine from the bladder does not appear to show infection. Abdominal and pelvis CT shows a potential partial large bowel obstruction. Findings consistent with her cancer were noted. There was no abscess seen. The right nephrostomy tube was in proper position. Patient received IV saline for hydration. She received IV morphine for pain, IV Zofran for nausea. She was given IV ceftriaxone as antibiotic coverage. The patient presents with abdominal distention and increasing abdominal pain. She has had a lot of pressure to have a bowel movement. On work-up, she has what appears to be a partial large bowel obstruction. She has evidence for an infection to the right kidney. I do think a hospital stay is warranted. I spoke to the patient and case management director. The on-call hospitalist was consulted. Impression & Plan Large bowel obstruction, Pyelonephritis of right kidney, Abdominal pain, lower, Bowel cancer Discharge Plan Visit Data Chief Complaint: GI Assessment Stated Complaint: HURTING BELLY,BOWELS,VAGINA ED Provider: Willy Connelly Discharge Problem: Large bowel obstruction, Pyelonephritis of right kidney, Abdominal pain, lower, Bowel cancer Patient Disposition: Admitted As Inpatient Forms Stand Alone Forms: My [facility] [employer] Prescriptions Prescriptions: No Action oxycodone 5 mg tablet 5 mg PO Q4H PRN (Reason: pain) RF: 0 morphine 15 mg tablet extended release 15 mg PO Q12H PRN (Reason: pain) RF: 0 diphenoxylate-atropine [Lomotil] 2.5-0.025 mg tablet 1 tab PO Q6H PRN (Reason: diarrhea) Qty: 60 RF: 2 lorazepam 0.5 mg tablet 0.5 mg PO BID PRN (Reason: Anxiety) RF: 0 paroxetine HCl 20 mg tablet 30 mg PO QAM RF: 0 albuterol sulfate [ProAir HFA] 90 mcg/actuation Hfa Aerosol Inhaler 2 puff INHALATION Q6H PRN (Reason: Shortness Of Breath Or Wheezing) RF: 0 prochlorperazine maleate 10 mg tablet 10 mg PO Q6H PRN (Reason: Nausea) RF: 0 allopurinol 300 mg tablet 300 mg PO HS RF: 0 Symbicort 160-4.5 mcg/actuation Hfa Aerosol Inhaler 2 puff INHALATION DAILY RF: 0 Spiriva Respimat 2.5 mcg/actuation Mist 2 puff INHALATION DAILY RF: 0 simethicone [Gas Relief] 80 mg Tablet,Chewable 80 mg PO DIRECTED PRN (Reason: FOR GAS RELIEF) RF: 0 enoxaparin 60 mg/0.6 mL Syringe 55 mg SUBCUT Q12H RF: 0 Referrals Referrals: Zahida Mcgill, DO [Primary Care Provider] - The scribe's documentation has been prepared under my direction and personally reviewed by me in its entirety. I confirm that the note above accurately reflects all work, treatment, procedures, and medical decision making performed by me.
--- NOTE | 2018-10-13 20:24 | History & Physical Report ---
Date of Service October 13, 2018 Assessment & Plan (1) Abdominal pain: Multifactorial : Complicated UTI proctocolitis possibly secondary to radiation rule out C. 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 difficile Follow urine cultures Ceftriaxone, Flagyl GI consult RE proctocolitis Surgery consult RE bowel obstruction Replace potassium IV heparin in place of Lovenox subcutaneous injections for patient's PE/DVT hx RE possible procedural intervention Full code History of Present Illness Chief Complaint: Abdominal pain Primary Care Provider: Zahida Mcgill, History obtained from patient and records. 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 Recent confinement May 2018 for complicated UTI. Patient found to have recurrent neuroendocrine cecal/appendiceal carcinoma last April 2018. Also found to have PE DVT at that time. Therapeutic Lovenox shots eventually initiated outpatient. Nephrostomy tube placed on the right for hydronephrosis. No response to chemotherapy as per records. Patient also completed salvage radiation therapy last month. Last month, patient noted diarrhea symptoms, occasionally bloody. Last night patient noted lower abdominal pain like spasm-like. Persistent loose stools, occasionally bloody. No fever, no chills. Patient denies chest pain. Short of breath due to abdominal pain. At the ER, patient received IV ceftriaxone for possible UTI. Medical History as above Surgical History : Partial colectomy, anastomosis, knee surgery, vascular procedure, oophorectomy, nephrostomy tube placement Family History : Kidney cancer, prostate cancer, breast cancer Personal/Social history : Past tobacco abuse, occasional EtOH intake, retired [employer] Allergies Allergy/AdvReac Type Severity Reaction Status Date / Time No Known Allergies Allergy Verified 10/13/18 16:01 Home Medications Home Medications Medication Instructions Recorded Confirmed Type albuterol sulfate [ProAir HFA] 2 puff INHALATION Q6H PRN 04/24/18 10/13/18 History lorazepam 0.5 mg PO BID PRN 04/24/18 10/13/18 History paroxetine HCl 30 mg PO QAM 04/24/18 10/13/18 History Spiriva Respimat 2 puff INHALATION DAILY 05/25/18 10/13/18 History Symbicort 2 puff INHALATION DAILY 05/25/18 10/13/18 History allopurinol 300 mg PO HS 05/25/18 10/13/18 History prochlorperazine maleate 10 mg PO Q6H PRN 05/25/18 10/13/18 History oxycodone 5 mg tablet 5 mg PO Q4H PRN tab 08/12/18 10/13/18 History morphine ER 15 mg tablet,extended 15 mg PO Q12H PRN 08/26/18 10/13/18 History release diphenoxylate-atropine 2.5 1 tab PO Q6H PRN #60 tab 09/23/18 10/13/18 Rx mg-0.025 mg tablet enoxaparin 55 mg SUBCUT Q12H 10/13/18 10/13/18 History simethicone [Gas Relief] 80 mg PO DIRECTED PRN 10/13/18 10/13/18 History Past Med/Surg History Medical History 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, found to have extensive retroperitoneal disease, IVC thrombus, pulmonary embolism, core needle biopsy of the retroperitoneal mass confirmed high-grade neuroendocrine carcinoma recurrent Dr Chung progress note "DIAGNOSIS: - Cecal adenocarcinoma, S/P exploratory laparotomy, found to have unresectable disease underwent ileo- small bowel to transverse colon [id number] anastomosis on 08/08/2016. S/P neoadjuvant modified FOLFOX 6 chemotherapy x 5 -Oxaliplatin induced the liver toxicity, received 5-Fluorouracil leucovorin x 7. Last cycle received on 02/12/2018. S/P right hemicolectomy on 03/23/2017 (by Dr. Cheng). 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 KRAS and BRAF mutation-->negative. 04/2018: -recurrent high-grade neuroendocrine carcinoma involving the retroperitoneal lymph regan region causing right hydronephrosis, S/P percutaneous nephrostomy drainage. -IVC thrombus, pulmonary embolism. - Essential thrombocythemia diagnosed in 2005, JAK2 mutation positive platelet count was over 1 million at that time the diagnosis. She is on hydroxyurea for that." Metastatic disease (Chronic) IVC thrombosis (Chronic) Pulmonary embolism (Chronic) Thrombocytosis (Chronic) Colon cancer (Chronic) S/P right hemicolectomy on 03/23/2017 (by Dr. Cheng). 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 COPD (chronic obstructive pulmonary disease) (Chronic) Surgical History H/O rotator cuff surgery (Chronic) History of arthroscopy of left knee (Chronic) S/P removal of right ovary (Chronic) History of partial surgical removal of colon (Chronic) Family History Grandmother (Paternal) , of childbirth No problems noted. Grandfather (Paternal) , of lung cancer at age 7 No problems noted. Father , of protsate cancer No problems noted. Mother , of breas cancer with metastasis to lung and brain No problems noted. Brother Age: 63 Prostate cancer Brother Age: 57 Prostate cancer Sister Age: 50 No problems noted. Daughter Age: 27 No problems noted. 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 Required: No Beliefs That Will Affect Care: None marital status: Current Living Situation: Spouse Other Information That Helps Us Care for You: No Feels Safe at Home: Yes Safety Concerns: Feels Safe At This Time Smoking Status: Former smoker Tobacco Type: cigarettes ; Do You Dip or Chew Tobacco: No ; Smoking End Date: 1998 ; Second Hand Exposure: No ; Tobacco Cessation Education Requested by Patient: No Hx Alcohol Use: Yes Alcohol type: beer Hx Substance Use: No Review of Systems Review of Systems: As per HPI, all 10 systems reviewed, all other ROS negative Physical Exam Physical Exam: GENERAL: Comfortable, pleasant, no respiratory distress SKIN: Pallor , warm HEENT: Sparse hair, pale palpebral conjunctivae, no ptosis, dry buccal mucosa NECK : Supple, no tenderness CHEST : Decreased breath sounds , no tenderness HEART : RRR, no obvious murmurs ABDOMEN: Some distention, hypogastric tenderness BACK : nephrostomy tube in the right flank EXTREMITIES : Minimal LE swelling, no LE tenderness, no other conspicuous deformities noted NEUROLOGIC : Coherent, no facial asymmetry, no other gross focality Results & Data Vital Signs (Past 12 Hours) Vital Signs Temp Pulse Pulse Resp BP BP Pulse Ox 10/13/18 19:54 91 H 20 102/63 94 10/13/18 19:22 78 22 101/55 L 94 10/13/18 18:03 81 16 101/61 95 10/13/18 16:11 81 22 119/72 93 10/13/18 15:17 37.2 C 95 H 20 102/69 96 Laboratory Results Laboratory Results WBC 8.16 K/uL (4.8-10.8) 10/13/18 15:49 RBC 3.57 M/uL (4.2-5.4) L 10/13/18 15:49 Hgb 10.2 g/dL (12.0-16.0) L 10/13/18 15:49 Hct 31.9 % (37-47) L 10/13/18 15:49 MCV 89.4 fL (80-100) 10/13/18 15:49 MCH 28.6 pg (25-34) 10/13/18 15:49 MCHC 32.0 g/dL (32-36) 10/13/18 15:49 RDW Std Deviation 59.2 fL (36.4-46.3) H 10/13/18 15:49 RDW Coeff of Ysabel 18.1 % (11.5-14.5) H 10/13/18 15:49 Plt Count 289 K/uL (130-400) 10/13/18 15:49 MPV 9.4 fL (7.4-10.4) 10/13/18 15:49 Immature Gran % (Auto) 0.2 % 10/13/18 15:49 Neut % (Auto) 93.7 % 10/13/18 15:49 Lymph % (Auto) 2.2 % 10/13/18 15:49 Simpson % (Auto) 3.7 % 10/13/18 15:49 Eos % (Auto) 0.1 % 10/13/18 15:49 Baso % (Auto) 0.1 % 10/13/18 15:49 Immature Gran # (Auto) 0.02 K/uL (0.00-0.02) 10/13/18 15:49 Neut # (Auto) 7.64 K/uL (1.4-6.5) H 10/13/18 15:49 Lymph # (Auto) 0.18 K/uL (1.2-3.4) L 10/13/18 15:49 Simpson # (Auto) 0.30 K/uL (0.11-0.59) 10/13/18 15:49 Eos # (Auto) 0.01 K/uL (0-0.5) 10/13/18 15:49 Baso # (Auto) 0.01 K/uL (0-0.2) 10/13/18 15:49 PT 10.4 Seconds (9.0-12.0) 10/13/18 15:49 INR 1.0 (0.9-1.1) 10/13/18 15:49 Sodium 136 mmol/L (136-145) 10/13/18 15:49 Potassium 3.4 mmol/L (3.5-5.1) L 10/13/18 15:49 Chloride 104 mmol/L (98-107) 10/13/18 15:49 Carbon Dioxide 23 mmol/L (21-32) 10/13/18 15:49 Anion Gap 9.0 (3-11) 10/13/18 15:49 BUN 11 mg/dl (7-18) 10/13/18 15:49 Creatinine 0.83 mg/dl (0.6-1.2) 10/13/18 15:49 Est Cr Clr Drug Dosing Not Reportable 10/13/18 15:49 Est GFR ( Amer) 88.2 10/13/18 15:49 Est GFR (Non-Af Amer) 76.1 10/13/18 15:49 BUN/Creatinine Ratio 13.0 (10-20) 10/13/18 15:49 Glucose 98 mg/dl (70-99) 10/13/18 15:49 Lactate 0.5 mmol/L (0.4-2.0) 10/13/18 15:49 Calcium 8.0 mg/dl (8.5-10.1) L 10/13/18 15:49 Magnesium 1.8 mg/dl (1.8-2.4) 10/13/18 15:49 Total Bilirubin 0.8 mg/dl (0.2-1) 10/13/18 15:49 AST 47 U/L (15-37) H 10/13/18 15:49 ALT 74 U/L (12-78) 10/13/18 15:49 Alkaline Phosphatase 487 U/L (45-117) H 10/13/18 15:49 Total Protein 5.9 gm/dl (6.4-8.2) L 10/13/18 15:49 Albumin 2.8 gm/dl (3.4-5.0) L 10/13/18 15:49 Globulin 3.1 gm/dl (2.5-4.0) 10/13/18 15:49 Albumin/Globulin Ratio 0.9 (0.9-2) 10/13/18 15:49 Lipase 19 U/L (73-393) L 10/13/18 15:49 Urine Color Duncan 10/13/18 17:15 Urine Color Yellow 10/13/18 17:15 Urine Appearance Clear (Clear) 10/13/18 17:15 Urine Appearance Cloudy (Clear) A 10/13/18 17:15 Urine pH 5.0 (4.5-7.5) 10/13/18 17:15 Urine pH 5.0 (4.5-7.5) 10/13/18 17:15 Ur Specific Schneider 1.011 (1.000-1.030) 10/13/18 17:15 Ur Specific Schneider 1.016 (1.000-1.030) 10/13/18 17:15 Urine Protein 1+ (Negative) H 10/13/18 17:15 Urine Protein Negative (Negative) 10/13/18 17:15 Urine Glucose (UA) Negative (Negative) 10/13/18 17:15 Urine Glucose (UA) Negative (Negative) 10/13/18 17:15 Urine Ketones 1+ (Negative) H 10/13/18 17:15 Urine Ketones 1+ (Negative) H 10/13/18 17:15 Urine Blood Negative (Negative) 10/13/18 17:15 Urine Blood Trace (Negative) H 10/13/18 17:15 Urine Nitrite Negative (Negative) 10/13/18 17:15 Urine Nitrite Positive (Negative) A 10/13/18 17:15 Urine Bilirubin Negative (Negative) 10/13/18 17:15 Urine Bilirubin Negative (Negative) 10/13/18 17:15 Urine Urobilinogen Negative (Negative) 10/13/18 17:15 Urine Urobilinogen Negative (Negative) 10/13/18 17:15 Ur Leukocyte Esterase 3+ (Negative) H 10/13/18 17:15 Ur Leukocyte Esterase Negative (Negative) 10/13/18 17:15 Urine WBC (Auto) >30 /hpf (0-5) H 10/13/18 17:15 Urine RBC (Auto) 0-4 /hpf (0-4) 10/13/18 17:15 U Hyaline Cast (Auto) 1-5 /lpf (0-5) 10/13/18 17:15 U Epithel Cells (Auto) 0-5 /lpf (0-5) 10/13/18 17:15 Urine Bacteria (Auto) 1+ (Negative) H 10/13/18 17:15 Diagnostic Findings Chest x-ray: No pneumothorax. No pleural effusions. The heart is normal in size. Emphysema. Increased markings at the lung bases favors vascular crowding from the emphysema. Otherwise, no focal lung consolidations to suggest pneumonia. No evidence for pulmonary edema. Right jugular Port-A-Cath terminates at the SVC. CT abdomen pelvis: 1. Abnormal thickening involving the sigmoid colon and rectum. This favors a proctocolitis. There is also focal narrowing at the rectosigmoid junction with mild dilatation the colon proximal to this location. Therefore, this is concerning for developing large bowel obstruction. Of note, the focal area of narrowing at the rectosigmoid junction could be due to the inflammatory/infectious change or a possible lesion. 2. The heterogeneous retroperitoneal mass is again noted and similar to the prior study. There is associated thrombus within the IVC and right iliac vein. 3. Progressive retrocrural lymphadenopathy. 4. Trace ascites. There is also suggestion of subtle nodularity along the peritoneal linings as described above. Therefore, this is concerning for developing perineal carcinomatosis. 5. Left gonadal/pelvic pain varicosities. These demonstrate central hypodensity raising the possibility of partial thrombosis. The hypodensity could also be related to spread of tumor. This bears watching on future examinations. 6. Mild to moderate dilatation of the right renal pelvis which has progressed. However, the right ureter is normal in caliber. In addition, the percutaneous nephrostomy tube appears in good position.
[2018-10-13 20:46] LABS: Partial Thromboplastin Ratio 1.6; Partial Thromboplastin Time 42.1 Seconds (21.0-31.0)
--- NOTE | 2018-10-13 20:46 | XRay Report ---
XR chest 1V portable HISTORY: Shortness of breath. COMPARISON: Chest 05/25/2018. FINDINGS: No pneumothorax. No pleural effusions. The heart is normal in size. Emphysema. Increased ma rkings at the lung bases favors vascular crowding from the emphysema. Otherwise, no focal lung consol idations to suggest pneumonia. No evidence for pulmonary edema. Right jugular Port-A-Cath terminates at the SVC. IMPRESSION: No significant change compared to the prior study. No acute process. Electronically signed by: Rush Matthews M.D. 10/13/2018 8:44 PM
[2018-10-13] MEDS ORDERED: metroNIDAZOLE 500 MG/100 ML BAG IV STA (21:03)
[2018-10-13] MEDS ORDERED: PROMETHAZINE HCL 12.5 MG in SODIUM CHLORIDE 0.9% 50 ML IV PRN (22:09)
[2018-10-13] MEDS ORDERED: LORazepam 0.5 MG TAB PO PRN (22:09)
[2018-10-13] MEDS ORDERED: Heparin IV Low Dose *NO* Bolus IV STA (22:09)
[2018-10-13] MEDS ORDERED: ACETAMINOPHEN 325 MG TAB PO PRN (22:09)
[2018-10-13] MEDS ORDERED: NSS + 20MEQ KCL 20 MEQ/1,000 ML BAG IV SCH (22:30)
[2018-10-13 22:34] LABS: Hematocrit (blood only) 32.3 % (37-47); Hemoglobin 10.4 g/dL (12.0-16.0)
[2018-10-13] MEDS: ALLOPURINOL 300 MG TAB PO SCH (23:27)
[2018-10-13] MEDS: OXYCODONE HCL IR 5 MG TAB (IMMEDIATE RELEASE) PO PRN (23:33)
[2018-10-13] MEDS: Heparin Adult LOW DOSE Wt-Based Dextrose 5% 25,000 units/500 mL IV SCH (23:37)
[2018-10-13] MEDS ORDERED: ALBUT/IPRATROP 3MG/0.5MG NEB 3 ML VIAL NEB PRN (23:40)
[2018-10-14] MEDS: MoRPHine SULFATE 2 MG/ML CARP IV PRN ×4 (04:10→21:01)
[2018-10-14] MEDS: metroNIDAZOLE 500 MG/100 ML BAG IV SCH ×3 (05:45→21:02)
[2018-10-14 05:59] LABS: Basophils # (auto) 0.01 K/uL (0-0.2); Basophils % (auto) 0.2 %; Eosinophils # (auto) 0.03 K/uL (0-0.5); Eosinophils % (auto) 0.5 %; Hematocrit (blood only) 29.5 % (37-47); Hemoglobin 9.5 g/dL (12.0-16.0); Lymphocytes # (auto) 0.32 K/uL (1.2-3.4); Lymphocytes % (auto) 5.1 %; Mean Corpuscular Hgb Conc 32.2 g/dL (32-36); Mean Corpuscular Volume 88.9 fL (80-100); Mean Platelet Volume 9.4 fL (7.4-10.4); Monocytes # (auto) 0.52 K/uL (0.11-0.59); Monocytes % (auto) 8.4 %; Neutrophils # (auto) 5.34 K/uL (1.4-6.5); Neutrophils % (auto) 85.8 %; Platelet Count 263 K/uL (130-400); RDW Coefficient of Variation 18.6 % (11.5-14.5); RDW Standard Deviation 60.7 fL (36.4-46.3); Red Blood Count 3.32 M/uL (4.2-5.4); White Blood Count 6.22 K/uL (4.8-10.8)
[2018-10-14 06:20] LABS: Partial Thromboplastin Ratio 1.4; Partial Thromboplastin Time 37.4 Seconds (21.0-31.0)
[2018-10-14 06:38] LABS: BUN Creatinine Ratio 11.8 (10-20); Calcium 8.4 mg/dl (8.5-10.1); Creatinine Clr Calc Pharmacy 54.4 ml/min; Est GFR (African American) 89.5; Est GFR (Non-African American) 77.2; Potassium 4.3 mmol/L (3.5-5.1)
[2018-10-14] MEDS ORDERED: HEPARIN IV BOLUS 4,000 UNITS in SYRINGE 0 ML IV ONE (06:45)
[2018-10-14] MEDS: TIOTROPIUM BROMIDE 5 PUFF/90 MCG INH INH SCH (08:27)
[2018-10-14] MEDS: PARoxetine HCl 20 MG TAB PO SCH (08:28)
[2018-10-14] MEDS: BUDESONIDE/FORMOTEROL FUMARATE 160/4.5 60 PUFFS/INHALER INH SCH (08:28)
[2018-10-14] MEDS: D5W AND NSS 1,000 ML IV SCH ×2 (08:30→16:22)
--- NOTE | 2018-10-14 10:16 | Surgery Consultation ---
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 Can be treated per GI, oncology recs. If no additional procedures or imaging are planned, can resume diet. History of Present Illness Attending Physician: Oli Doyle MD History of Present Illness 63 y/o female h/o colectomy (04/2017) for cecal/appendix neuroendocrine tumor admitted last night for pelvic pressure, pain. She finished radiation last month for retroperitoneal tumor deposit encasing the aortic bifurcation which did not respond to chemo. She had diarrhea during therapy, not having currently. Had small BM yesterday, no blood or mucus and is passing flatus. No nausea or vomiting. Last colonoscopy 2016. Allergies Allergy/AdvReac Type Severity Reaction Status Date / Time No Known Allergies Allergy Verified 10/13/18 16:01 Home Medications Home Medications Medication Instructions Recorded Confirmed Type albuterol sulfate [ProAir HFA] 2 puff INHALATION Q6H PRN 04/24/18 10/13/18 History lorazepam 0.5 mg PO BID PRN 04/24/18 10/13/18 History paroxetine HCl 30 mg PO QAM 04/24/18 10/13/18 History Spiriva Respimat 2 puff INHALATION DAILY 05/25/18 10/13/18 History Symbicort 2 puff INHALATION DAILY 05/25/18 10/13/18 History allopurinol 300 mg PO HS 05/25/18 10/13/18 History prochlorperazine maleate 10 mg PO Q6H PRN 05/25/18 10/13/18 History oxycodone 5 mg tablet 5 mg PO Q4H PRN tab 08/12/18 10/13/18 History morphine ER 15 mg tablet,extended 15 mg PO Q12H PRN 08/26/18 10/13/18 History release diphenoxylate-atropine 2.5 1 tab PO Q6H PRN #60 tab 09/23/18 10/13/18 Rx mg-0.025 mg tablet enoxaparin 55 mg SUBCUT Q12H 10/13/18 10/13/18 History simethicone [Gas Relief] 80 mg PO DIRECTED PRN 10/13/18 10/13/18 History Patient History Medical History 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 S/P neoadjuvant modified FOLFOX 6 chemotherapy x 5 -Oxaliplatin induced the liver toxicity, received 5-Fluorouracil leucovorin x 7. Last cycle received on 02/12/2018. S/P right hemicolectomy on 03/23/2017 (by Dr. Cheng). 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 KRAS and BRAF mutation-->negative. 04/2018: -recurrent high-grade neuroendocrine carcinoma involving the retroperitoneal lymph regan region causing right hydronephrosis, S/P percutaneous nephrostomy drainage. -IVC thrombus, pulmonary embolism. - Essential thrombocythemia diagnosed in 2005, JAK2 mutation positive platelet count was over 1 million at that time the diagnosis. She is on hydroxyurea for that." Metastatic disease (Chronic) IVC thrombosis (Chronic) Pulmonary embolism (Chronic) Thrombocytosis (Chronic) Colon cancer (Chronic) S/P right hemicolectomy on 03/23/2017 (by Dr. Cheng). 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 COPD (chronic obstructive pulmonary disease) (Chronic) Surgical History H/O rotator cuff surgery (Chronic) History of arthroscopy of left knee (Chronic) S/P removal of right ovary (Chronic) History of partial surgical removal of colon (Chronic) Family History Grandmother (Paternal) , of childbirth No problems noted. Grandfather (Paternal) , of lung cancer at age 7 No problems noted. Father , of protsate cancer No problems noted. Mother , of breas cancer with metastasis to lung and brain No problems noted. Brother Age: 63 Prostate cancer Brother Age: 57 Prostate cancer Sister Age: 50 No problems noted. Daughter Age: 27 No problems noted. 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 Beliefs That Will Affect Care: None marital status: Current Living Situation: Spouse Other Information That Helps Us Care for You: No Feels Safe at Home: Yes Safety Concerns: Feels Safe At This Time Smoking Status: Former smoker Tobacco Type: cigarettes ; Do You Dip or Chew Tobacco: No ; Smoking End Date: 1998 ; Second Hand Exposure: No ; Tobacco Cessation Education Requested by Patient: No Hx Alcohol Use: Yes Alcohol type: beer Hx Substance Use: No Review of Systems Constitutional: + fever, + chills and + weight loss Gastrointestinal: + abdominal pain and + bloating; no nausea and no vomiting Physical Exam Constitutional: WD/WN, vitals as above Respiratory: normal respiratory effort, lungs clear to auscultation Cardiovascular: RRR, no murmur, no edema Gastrointestinal (Abdomen): Inspection/Auscultation: + abdomen distended (mild) Percussion/Palpation: abdomen soft; abdomen nontender Results & Data Vital Signs (Past 12 Hours) Vital Signs Temp Pulse Pulse Resp BP BP Pulse Ox 10/14/18 07:44 36.7 C 68 14 92/47 L 94 10/14/18 04:01 36.7 C 67 16 98/69 L 92 10/13/18 23:13 36.4 C L 71 16 112/67 92 Diagnostic Findings ABDOMEN AND PELVIS CT WITH IV CONTRAST CT DOSE: 248.12 mGy.cm HISTORY: Lower abdominal pain. History of malignancy. TECHNIQUE: Multiaxial CT images of the abdomen and pelvis were performed following the use of intravenous contrast. A dose lowering technique was utilized adhering to the principles of ALARA. COMPARISON STUDY: PET/CT 07/15/2018. Abdomen and pelvis CT 07/09/2018. FINDINGS: Emphysema. No pneumoperitoneum. No pneumatosis. No suspicious lytic or blastic osseous lesions. Retrocrural lymphadenopathy has progressed. Dominant retrocrural lymph node measures 13 mm. No hepatic or splenic masses. The adrenal glands, pancreas, and gallbladder are unremarkable. Right-sided percutaneous nephrostomy tube appears in good position. Slight delayed right-sided nephrogram. Umme-cw-[id number] dilatation of right renal pelvis which has progressed. However, the right ureter is normal in caliber. The bladder is unremarkable. The IVC and right common iliac vein thrombosis is not significantly changed. The infiltrative retroperitoneal mass at the aortic bifurcation is also similar to the prior study. Left gonadal/pelvic vein varicosities persist. Some of these demonstrate central hypodensity and could be partially thrombosed. The main portal vein remains patent. Trace ascites. Evidence for prior bowel anastomosis. Perirectal inflammatory change/edema. There is abnormal thickening in the sigmoid colon and rectum. Is also a focal area of narrowing at the rectosigmoid junction best seen image [id number]. The proximal sigmoid colon which is mildly distended and filled with stool colon proximal to this area of narrowing is mildly distended and stool-filled. Areas of subtle nodularity along the peritoneal linings concerning for developing peritoneal carcinomatosis. Dominant enhancing nodular density within the right lower quadrant on image 261 measures 5 mm. IMPRESSION: 1. Abnormal thickening involving the sigmoid colon and rectum. This favors a proctocolitis. There is also focal narrowing at the rectosigmoid junction with mild dilatation the colon proximal to this location. Therefore, this is concerning for developing large bowel obstruction. Of note, the focal area of narrowing at the rectosigmoid junction could be due to the infla mmatory/infectious change or a possible lesion. 2. The heterogeneous retroperitoneal mass is again noted and similar to the prior study. There is associated thrombus within the IVC and right iliac vein. 3. Progressive retrocrural lymphadenopathy. 4. Trace ascites. There is also suggestion of subtle nodularity along the peritoneal linings as described above. Therefore, this is concerning for develo ping perineal carcinomatosis. 5. Left gonadal/pelvic pain varicosities. These demonstrate central hypodensity raising the possibility of partial thrombosis. The hypodensity could also be related to spread of tumor. This bears watching on future examinations. 6. Mild to moderate dilatation of the right renal pelvis which has progressed. However, the right ureter is normal in caliber. In addition, the percutaneous nephrostomy tube appears in good position. 7. Additional findings as described above. Electronically signed by: Rush Matthews M.D. 10/13/2018 6:25 PM Dictated: 10/13/181809 Transcribed: 10/13/181809
[2018-10-14 12:55] LABS: Partial Thromboplastin Ratio 1.8
--- NOTE | 2018-10-14 13:06 | Gastrointestinal Consultation ---
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 Recurrence of tumore noted w extension to retroperitoneal area, involving IVC, and surrounding lymph nodes. She presented w lower crampy, abd pain, bloating and BRBPR, soft stools. CT w signs of sigmoid/rectum area thickening w rectosigmoid junction narrowing ? inflammatory/infectious in nature vs underlying lesion. She also just completed radiation 1 month ago ? radiation colitis. - Check stool cx, and Cdiff - May continue IV antibx for now - CL diet today - NPO after midnight for flexible sigmoidscopy tomorrow. Will give tap water enema tomorrow AM for prep - Symtomatic managment otherwise. Attg add: I interviewed and examined pt, reviewed chart and labs. Pt with colon ca, neuroendorcirne CA s/p recent XRt completed in September now with diffuse abd pain, lack of appetite. CT shows inflammatory changes in pelvis. Unclear cause of pain -- time course is not quite consistent with XRT enteritis. Plan flex sig to r.o obstruction and to look for changes of colitis; if unremarkable, would consider possibilty that pain may be from urinary obstruction or directly related to malignancy. History of Present Illness Reason for Consultation: Colitis Requesting Physician: Dr. Oli Doyle Attending Physician: Dr. Sathish Infante History of Present Illness Pt is a 63 y/o female seen for colitis. She has PMHx of neuroendocrine cecal, appendiceal carcinoma s/p R hemicolectomy in 2016, s/p chemoradiation, hx of PE and DVT. She had recurrence of her cancer in April involving now to retroperi toneal and surrounding lympho nodes area. Attempted repeat chemo w/o response. Had radiation started, ended 1 month ago. She also had R nephrostomy tube placement for R hydroneprhosis. She reports rectal bleeding since about 1 week into radiation. Had been having pressure and crampy like pain mostly on lower abd areas for weeks. Stools have been little to pass. She feels bloated. Denies any n/v, fever, chills. On evaluation, CT abd/pelvis showed sigmoid colon and rectum thickening favoring proctocolitis. There's a focal narrowing in the rectosigmoid junction w mild dilatation of colon proximal to this concerning for developing large bowel obstruction. ? narrowing related to inflammatory vs infecious or lesion. Otherwise again visualized retroperitoneal mass w associated thrombus in IVC and R iliac vein, retrocrural lymphadenopathy, trace ascites, L gonadal pelvic varicosities ? partial thrombosis or spread of tumor. R renal pelvis dilation had also progressed. Allergies Allergy/AdvReac Type Severity Reaction Status Date / Time No Known Allergies Allergy Verified 10/13/18 16:01 Home Medications Home Medications Medication Instructions Recorded Confirmed Type albuterol sulfate [ProAir HFA] 2 puff INHALATION Q6H PRN 04/24/18 10/13/18 History lorazepam 0.5 mg PO BID PRN 04/24/18 10/13/18 History paroxetine HCl 30 mg PO QAM 04/24/18 10/13/18 History Spiriva Respimat 2 puff INHALATION DAILY 05/25/18 10/13/18 History Symbicort 2 puff INHALATION DAILY 05/25/18 10/13/18 History allopurinol 300 mg PO HS 05/25/18 10/13/18 History prochlorperazine maleate 10 mg PO Q6H PRN 05/25/18 10/13/18 History oxycodone 5 mg tablet 5 mg PO Q4H PRN tab 08/12/18 10/13/18 History morphine ER 15 mg tablet,extended 15 mg PO Q12H PRN 08/26/18 10/13/18 History release diphenoxylate-atropine 2.5 1 tab PO Q6H PRN #60 tab 09/23/18 10/13/18 Rx mg-0.025 mg tablet enoxaparin 55 mg SUBCUT Q12H 10/13/18 10/13/18 History simethicone [Gas Relief] 80 mg PO DIRECTED PRN 10/13/18 10/13/18 History Patient History Medical History 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 S/P neoadjuvant modified FOLFOX 6 chemotherapy x 5 -Oxaliplatin induced the liver toxicity, received 5-Fluorouracil leucovorin x 7. Last cycle received on 02/12/2018. S/P right hemicolectomy on 03/23/2017 (by Dr. Cheng). -Final pathology showed high-grade neuroendocrine carcinoma extending into the pericolonic adipose tissue, negative margin, lymphovascular and perine ural invasion noted, multiple tumor deposits identified throughout the mesentery, 3/12 lymph nodes positive for metastatic neuroendocrine carcinoma T3 N1c. KRAS and BRAF mutation-->negative. 04/2018: -recurrent high-grade neuroendocrine carcinoma involving the retroperitoneal lymph regan region causing right hydronephrosis, S/P percutaneous nephrostomy drainage. -IVC thrombus, pulmonary embolism. - Essential thrombocythemia diagnosed in 2005, JAK2 mutation positive platelet count was over 1 million at that time the diagnosis. She is on hydroxyurea for that." Metastatic disease (Chronic) IVC thrombosis (Chronic) Pulmonary embolism (Chronic) Thrombocytosis (Chronic) Colon cancer (Chronic) S/P right hemicolectomy on 03/23/2017 (by Dr. Cheng). 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 COPD (chronic obstructive pulmonary disease) (Chronic) Surgical History H/O rotator cuff surgery (Chronic) History of arthroscopy of left knee (Chronic) S/P removal of right ovary (Chronic) History of partial surgical removal of colon (Chronic) Family History Grandmother (Paternal) , of childbirth No problems noted. Grandfather (Paternal) , of lung cancer at age 7 No problems noted. Father , of protsate cancer No problems noted. Mother , of breas cancer with metastasis to lung and brain No problems noted. Brother Age: 63 Prostate cancer Brother Age: 57 Prostate cancer Sister Age: 50 No problems noted. Daughter Age: 27 No problems noted. 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 Beliefs That Will Affect Care: None marital status: Current Living Situation: Spouse Other Information That Helps Us Care for You: No Feels Safe at Home: Yes Safety Concerns: Feels Safe At This Time Smoking Status: Former smoker Tobacco Type: cigarettes ; Do You Dip or Chew Tobacco: No ; Smoking End Date: 1998 ; Second Hand Exposure: No ; Tobacco Cessation Education Requested by Patient: No Hx Alcohol Use: Yes Alcohol type: beer Hx Substance Use: No Review of Systems Review of Systems: All systems reviewed & are unremarkable except as noted in HPI & below Physical Exam Constitutional: WD/WN, vitals as above well groomed, cooperative and comfortable Eyes: PERRL, conjunctivae normal, anicteric sclerae ENMT: external ear and nose normal, oropharynx normal Respiratory: normal respiratory effort, lungs clear to auscultation Cardiovascular: RRR, no murmur, no edema Gastrointestinal (Abdomen): Inspection/Auscultation: + abdomen distended and normal bowel sounds Percussion/Palpation: + abdomen tender (diffuse) Skin: no rashes, warm and dry no jaundice Neurologic: Motor/Sensory: no asterixis Psychiatric: A+Ox3, euthymic affect Lymphatic: no lymphedema Results & Data Vital Signs (Past 12 Hours) Vital Signs Temp Pulse Pulse Resp BP BP Pulse Ox 10/14/18 07:44 36.7 C 68 14 92/47 L 94 10/14/18 04:01 36.7 C 67 16 98/69 L 92
[2018-10-14 13:12] LABS: Partial Thromboplastin Time 47.5 Seconds (21.0-31.0)
--- NOTE | 2018-10-14 14:27 | Hospitalist Progress Note ---
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 hx recurrent neuroendocrine cecal/appendiceal carcinoma status post surgery, chemoradiation, progressive disease - possible colon obstruction - GI and Gen Surg consulted on Ceftriaxone + Flagyl IV NPO, IV fluids r/o Complicated UTI -- Urine cultures pending -- on antibiotics as noted above hx PE/DVT ongoing Lovenox Rx -- presently on heparin drip for possible procedures right hydronephrosis secondary to retroperitoneal tumor status post nephrostomy tube placement -- stable COPD, past tobacco abuse, status at baseline Hypokalemia secondary to diarrheal illness -- resolved Disposition pending Subjective ff up for abdominal pain seen resting in bed, sitting up, not in distress states abdominal pain is still present, adequately controlled so far denies nausea, fever/chills no chest pain, dyspnea, palpitations, dizziness no other symptoms Review of Systems Review of Systems: All systems reviewed & are unremarkable except as noted in HPI & below Physical Exam Physical Exam: General- oriented x 3, not in distress, speaks in sentences with no effort or accessory muscle use Eyes- anicteric Neck- no JVD Lungs- clear breath sounds bilaterally, no rales/wheezes Heart- normal rate, regular rhythm; no murmurs Abdomen- normal bowel sounds, nondistended, soft, moderate tenderness on all quadrants Extremities- no pretibial edema, no calf tenderness Neuro- alert, oriented x 3; no gross focal neurologic deficits Skin- warm & dry Results & Data Vital Signs (Past 12 Hours) Vital Signs Temp Pulse Pulse Resp BP BP Pulse Ox 10/14/18 07:44 36.7 C 68 14 92/47 L 94 10/14/18 04:01 36.7 C 67 16 98/69 L 92 Laboratory Results Laboratory Results - last 24 hr 10/13/18 10/13/18 10/13/18 15:49 15:49 15:49 WBC 8.16 RBC 3.57 L Hgb 10.2 L Hct 31.9 L MCV 89.4 MCH 28.6 MCHC 32.0 RDW Std Deviation 59.2 H RDW Coeff of [place] 18.1 H Plt Count 289 MPV 9.4 Immature Gran % (Auto) 0.2 Neut % (Auto) 93.7 Lymph % (Auto) 2.2 [place] % (Auto) 3.7 Eos % (Auto) 0.1 Baso % (Auto) 0.1 Immature Gran # (Auto) 0.02 Neut # (Auto) 7.64 H Lymph # (Auto) 0.18 L [place] # (Auto) 0.30 Eos # (Auto) 0.01 Baso # (Auto) 0.01 PT 10.4 INR 1.0 APTT PTT Ratio Sodium 136 Potassium 3.4 L Chloride 104 Carbon Dioxide 23 Anion Gap 9.0 BUN 11 Creatinine 0.83 Est Cr Clr Drug Dosing Not Reportable Est GFR ( Amer) 88.2 Est GFR (Non-Af Amer) 76.1 BUN/Creatinine Ratio 13.0 Glucose 98 Lactate Calcium 8.0 L Magnesium 1.8 Total Bilirubin 0.8 AST 47 H ALT 74 Alkaline Phosphatase 487 H Total Protein 5.9 L Albumin 2.8 L Globulin 3.1 Albumin/Globulin Ratio 0.9 Lipase 19 L Urine Color Urine Appearance Urine pH Ur Specific [place] Urine Protein Urine Glucose (UA) Urine Ketones Urine Blood Urine Nitrite Urine Bilirubin Urine Urobilinogen Ur Leukocyte Esterase Urine WBC (Auto) Urine RBC (Auto) U Hyaline Cast (Auto) U Epithel Cells (Auto) Urine Bacteria (Auto) Stl C. diff Tox B Gene Blood Type Antibody Screen 10/13/18 10/13/18 10/13/18 15:49 15:49 17:15 WBC RBC Hgb Hct MCV MCH MCHC RDW Std Deviation RDW Coeff of [place] Plt Count MPV Immature Gran % (Auto) Neut % (Auto) Lymph % (Auto) [place] % (Auto) Eos % (Auto) Baso % (Auto) Immature Gran # (Auto) Neut # (Auto) Lymph # (Auto) [place] # (Auto) Eos # (Auto) Baso # (Auto) PT INR APTT 42.1 H PTT Ratio 1.6 Sodium Potassium Chloride Carbon Dioxide Anion Gap BUN Creatinine Est Cr Clr Drug Dosing Est GFR ( Amer) Est GFR (Non-Af Amer) BUN/Creatinine Ratio Glucose Lactate 0.5 Calcium Magnesium Total Bilirubin AST ALT Alkaline Phosphatase Total Protein Albumin Globulin Albumin/Globulin Ratio Lipase Urine Color [place] Urine Appearance Clear Urine pH 5.0 Ur Specific [place] 1.016 Urine Protein Negative Urine Glucose (UA) Negative Urine Ketones 1+ H Urine Blood Negative Urine Nitrite Negative Urine Bilirubin Negative Urine Urobilinogen Negative Ur Leukocyte Esterase Negative Urine WBC (Auto) Urine RBC (Auto) U Hyaline Cast (Auto) U Epithel Cells (Auto) Urine Bacteria (Auto) Stl C. diff Tox B Gene Blood Type Antibody Screen 10/13/18 10/13/18 10/13/18 17:15 22:19 22:19 WBC RBC Hgb 10.4 L Hct 32.3 L MCV MCH MCHC RDW Std Deviation RDW Coeff of [place] Plt Count MPV Immature Gran % (Auto) Neut % (Auto) Lymph % (Auto) [place] % (Auto) Eos % (Auto) Baso % (Auto) Immature Gran # (Auto) Neut # (Auto) Lymph # (Auto) [place] # (Auto) Eos # (Auto) Baso # (Auto) PT INR APTT PTT Ratio Sodium Potassium Chloride Carbon Dioxide Anion Gap BUN Creatinine Est Cr Clr Drug Dosing Est GFR ( Amer) Est GFR (Non-Af Amer) BUN/Creatinine Ratio Glucose Lactate Calcium Magnesium Total Bilirubin AST ALT Alkaline Phosphatase Total Protein Albumin Globulin Albumin/Globulin Ratio Lipase Urine Color Yellow Urine Appearance Cloudy A Urine pH 5.0 Ur Specific [place] 1.011 Urine Protein 1+ H Urine Glucose (UA) Negative Urine Ketones 1+ H Urine Blood Trace H Urine Nitrite Positive A Urine Bilirubin Negative Urine Urobilinogen Negative Ur Leukocyte Esterase 3+ H Urine WBC (Auto) >30 H Urine RBC (Auto) 0-4 U Hyaline Cast (Auto) 1-5 U Epithel Cells (Auto) 0-5 Urine Bacteria (Auto) 1+ H Stl C. diff Tox B Gene Blood Type A Positive Antibody Screen NEGATIVE 10/14/18 10/14/18 10/14/18 05:38 05:38 05:38 WBC 6.22 RBC 3.32 L Hgb 9.5 L Hct 29.5 L MCV 88.9 MCH 28.6 MCHC 32.2 RDW Std Deviation 60.7 H RDW Coeff of [place] 18.6 H Plt Count 263 MPV 9.4 Immature Gran % (Auto) 0.0 Neut % (Auto) 85.8 Lymph % (Auto) 5.1 [place] % (Auto) 8.4 Eos % (Auto) 0.5 Baso % (Auto) 0.2 Immature Gran # (Auto) 0.00 Neut # (Auto) 5.34 Lymph # (Auto) 0.32 L [place] # (Auto) 0.52 Eos # (Auto) 0.03 Baso # (Auto) 0.01 PT INR APTT 37.4 H PTT Ratio 1.4 Sodium 140 Potassium 4.3 D Chloride 111 H Carbon Dioxide 23 Anion Gap 7.0 BUN 10 Creatinine 0.82 Est Cr Clr Drug Dosing 54.4 Est GFR ( Amer) 89.5 Est GFR (Non-Af Amer) 77.2 BUN/Creatinine Ratio 11.8 Glucose 91 Lactate Calcium 8.4 L Magnesium Total Bilirubin AST ALT Alkaline Phosphatase Total Protein Albumin Globulin Albumin/Globulin Ratio Lipase Urine Color Urine Appearance Urine pH Ur Specific [place] Urine Protein Urine Glucose (UA) Urine Ketones Urine Blood Urine Nitrite Urine Bilirubin Urine Urobilinogen Ur Leukocyte Esterase Urine WBC (Auto) Urine RBC (Auto) U Hyaline Cast (Auto) U Epithel Cells (Auto) Urine Bacteria (Auto) Stl C. diff Tox B Gene Blood Type Antibody Screen 10/14/18 10/14/18 09:35 12:22 WBC RBC Hgb Hct MCV MCH MCHC RDW Std Deviation RDW Coeff of [place] Plt Count MPV Immature Gran % (Auto) Neut % (Auto) Lymph % (Auto) [place] % (Auto) Eos % (Auto) Baso % (Auto) Immature Gran # (Auto) Neut # (Auto) Lymph # (Auto) [place] # (Auto) Eos # (Auto) Baso # (Auto) PT INR APTT 47.5 H* PTT Ratio 1.8 Sodium Potassium Chloride Carbon Dioxide Anion Gap BUN Creatinine Est Cr Clr Drug Dosing Est GFR ( Amer) Est GFR (Non-Af Amer) BUN/Creatinine Ratio Glucose Lactate Calcium Magnesium Total Bilirubin AST ALT Alkaline Phosphatase Total Protein Albumin Globulin Albumin/Globulin Ratio Lipase Urine Color Urine Appearance Urine pH Ur Specific [place] Urine Protein Urine Glucose (UA) Urine Ketones Urine Blood Urine Nitrite Urine Bilirubin Urine Urobilinogen Ur Leukocyte Esterase Urine WBC (Auto) Urine RBC (Auto) U Hyaline Cast (Auto) U Epithel Cells (Auto) Urine Bacteria (Auto) Stl C. diff Tox B Gene Negative Cdiff Gene Blood Type Antibody Screen
[2018-10-14] MEDS: OXYCODONE HCL IR 5 MG TAB (IMMEDIATE RELEASE) PO PRN (17:35)
[2018-10-14] MEDS: cefTRIAXone SODIUM 1,000 MG in DEXTROSE 5% 50 ML IV SCH (18:21)
[2018-10-14] MEDS: ALLOPURINOL 300 MG TAB PO SCH (19:57)
[2018-10-14] MEDS: Heparin Adult LOW DOSE Wt-Based Dextrose 5% 25,000 units/500 mL IV SCH (22:58)
[2018-10-15] MEDS: D5W AND NSS 1,000 ML IV SCH ×3 (00:06→18:36)
[2018-10-15] MEDS: MoRPHine SULFATE 2 MG/ML CARP IV PRN ×3 (02:57→19:52)
[2018-10-15] MEDS: metroNIDAZOLE 500 MG/100 ML BAG IV SCH ×3 (05:47→21:35)
[2018-10-15 06:48] LABS: Partial Thromboplastin Ratio 1.4; Partial Thromboplastin Time 38.6 Seconds (21.0-31.0)
[2018-10-15] MEDS ORDERED: HEPARIN IV BOLUS 4,000 UNITS in SYRINGE 0 ML IV ONE (07:30)
[2018-10-15] MEDS: PARoxetine HCl 20 MG TAB PO SCH (07:36)
[2018-10-15] MEDS: BUDESONIDE/FORMOTEROL FUMARATE 160/4.5 60 PUFFS/INHALER INH SCH (07:37)
[2018-10-15] MEDS: TIOTROPIUM BROMIDE 5 PUFF/90 MCG INH INH SCH (07:37)
--- NOTE | 2018-10-15 08:48 | Surgery Progress Note ---
Date of Service October 15, 2018 Assessment & Plan (1) Colitis: (2) Abdominal pain: appears to be possible stricture of rectosigmoid. for sigmoidoscoy today pt poor surgical candidate and surgery would be as last resort only. pending endoscopy findings, may be a candidate for a stent? will follow along. no urgent surgical findings currently. clinically improved. (3) Bowel cancer: (4) IVC thrombosis: Subjective pt feeling better today. denies pain currently. continues to have loose bm's. Physical Exam Physical Exam: alert/oriented. nad. mm's moist. abd: soft. nt. nd. no g/r/r. Results & Data Vital Signs (Past 12 Hours) Vital Signs Temp Pulse Pulse Resp BP BP Pulse Ox 10/15/18 07:29 36.8 C 71 16 117/69 95 10/14/18 23:02 36.8 C 71 15 112/63 93 PG Care Time/CCT Total # of Minutes Spent Total Time Spent with Patient: Total time spent is greater than 50% in coordination of care (as documented) at patient's floor/unit and/or counseling patient:
--- NOTE | 2018-10-15 11:54 | History & Physical Bridge Note ---
Date of Service October 15, 2018 History & Physical Bridge Note I have examined the patient, reviewed the History & Physical and in the interval since the performance of the History & Physical I have noted the following changes of clinical significance: no changes noted Pt had been NPO for flex sigmoidscopy today. Unable to tolerate tap water enema. Still putting out semi soft stools w some rectal bleeding. Abd pain only slightly improved. Denies any N/V. VS, labs reviewed. Cdiff negative, stool cx pending. Exam: AAOx3, in NAD CTA lungs bilaterally HRR no murmur or gallops Abd w mild distension, diffusely tender, hypoactive bowel sounds No edema on extremities x 4 GI will give further recs after sigmoidscopy is completed Attg add: I interviewed and examined pt, reviewed chart and labs, agree with plan as above.
[2018-10-15 13:25] LABS: Partial Thromboplastin Ratio 1.7
--- NOTE | 2018-10-15 13:55 | Anesthesiology Consultation ---
Date of Service October 15, 2018 Assessment & Plan (1) Encounter for pre-operative examination: Chart Review Chart Review: Acceptable Risk for Surgery and Patient NOT seen in Pre Admission Testing Consults Requested none History Surgery Operation Date: 10/15/18 09:30 Proposed Procedures p Flexible Sigmoidoscopy Dr Rivero - Sathish Rivero Height/Weight Height: 5 ft 1 in Weight: 56.8 kg Allergies Allergy/AdvReac Type Severity Reaction Status Date / Time No Known Allergies Allergy Verified 10/13/18 16:01 Medications Home Medications Medication Instructions Recorded Confirmed Last Taken albuterol sulfate [ProAir HFA] 2 puff INHALATION Q6H PRN 04/24/18 10/13/18 Unknown lorazepam 0.5 mg PO BID PRN 04/24/18 10/13/18 Unknown paroxetine HCl 30 mg PO QAM 04/24/18 10/13/18 10/13/18 Spiriva Respimat 2 puff INHALATION DAILY 05/25/18 10/13/18 10/13/18 Symbicort 2 puff INHALATION DAILY 05/25/18 10/13/18 10/13/18 allopurinol 300 mg PO HS 05/25/18 10/13/18 10/12/18 prochlorperazine maleate 10 mg PO Q6H PRN 05/25/18 10/13/18 Unknown oxycodone 5 mg tablet 5 mg PO Q4H PRN tab 08/12/18 10/13/18 Unknown morphine ER 15 mg tablet,extended 15 mg PO Q12H PRN 08/26/18 10/13/18 Unknown release diphenoxylate-atropine 2.5 1 tab PO Q6H PRN #60 tab 09/23/18 10/13/18 10/13/18 14:00 mg-0.025 mg tablet enoxaparin 55 mg SUBCUT Q12H 10/13/18 10/13/18 10/13/18 08:30 simethicone [Gas Relief] 80 mg PO DIRECTED PRN 10/13/18 10/13/18 Unknown Active Medications Generic Name Dose Route Start Last Admin Trade Name Freq PRN Reason Stop Dose Admin Allopurinol 300 mg 10/13/18 22:09 10/14/18 19:57 Zyloprim PO 11/12/18 22:08 300 mg HS VERONICA Administration Budesonide/Formoterol Fumarate 2 puffs 10/14/18 09:00 10/15/18 07:37 Symbicort 160mcg/4.5mcg INH 11/13/18 08:59 2 puffs DAILY VERONICA Administration Metronidazole 500 mg in 100 mls @ 100 mls/hr 10/14/18 06:00 10/15/18 06:52 Flagyl IV 10/24/18 05:59 Infused Q8H VERONICA Infusion Ceftriaxone Sodium 1,000 mg/ 50 mls @ 100 mls/hr 10/14/18 19:00 10/14/18 19:54 Dextrose IV 10/24/18 18:59 Infused Q24H VERONICA Infusion Protocol Heparin Sodium/Dextrose 25,000 units in 500 mls @ 0 mls/hr 10/13/18 23:00 10/15/18 13:04 Heparin Sodium/Dextrose IV 11/12/18 22:59 0 units/hr .Q0M VERONICA 0 mls/hr Titration Protocol 0 UNITS/HR Dextrose/Sodium Chloride 1,000 mls @ 125 mls/hr 10/14/18 08:15 10/15/18 13:03 D5w And Nss IV 11/13/18 08:14 0 mls/hr .Q8H VERONICA Infusion Morphine Sulfate 2 mg 10/13/18 22:09 10/15/18 02:57 Morphine Sulfate IV 10/27/18 22:08 2 mg Q4H PRN Administration Pain Oxycodone HCl 5 mg 10/13/18 22:09 10/14/18 17:35 Roxicodone Immediate Rel PO 10/27/18 22:08 5 mg Q4H PRN Administration pain Paroxetine HCl 30 mg 10/14/18 09:00 10/15/18 07:36 Paxil PO 11/13/18 08:59 30 mg QAM VERONICA Administration Tiotropium [place] 2 puffs 10/14/18 09:00 10/15/18 07:37 Spiriva INH 11/13/18 08:59 2 puffs DAILY VERONICA Administration NPO Date Last Intake of Fluids: 10/15/18 Time Last Intake of Fluids: 12:00 Last Intake of Fluids Comment: sip of water Date Last Intake of Solids: 10/12/18 Time Last Intake of Solids: 18:00 Past Medical History Medical History 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 S/P neoadjuvant modified FOLFOX 6 chemotherapy x 5 -Oxaliplatin induced the liver toxicity, received 5-Fluorouracil leucovorin x 7. Last cycle received on 02/12/2018. S/P right hemicolectomy on 03/23/2017 (by Dr. Cheng). 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 KRAS and BRAF mutation-->negative. 04/2018: -recurrent high-grade neuroendocrine carcinoma involving the retroperitoneal lymph regan region causing right hydronephrosis, S/P percutaneous nephrostomy drainage. -IVC thrombus, pulmonary embolism. - Essential thrombocythemia diagnosed in 2005, JAK2 mutation positive platelet count was over 1 million at that time the diagnosis. She is on hydroxyurea for that." Metastatic disease (Chronic) IVC thrombosis (Chronic) Pulmonary embolism (Chronic) Thrombocytosis (Chronic) Colon cancer (Chronic) S/P right hemicolectomy on 03/23/2017 (by Dr. Cheng). 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 COPD (chronic obstructive pulmonary disease) (Chronic) Past Family History Family History Grandmother (Paternal) , of childbirth No problems noted. Grandfather (Paternal) , of lung cancer at age 7 No problems noted. Father , of protsate cancer No problems noted. Mother , of breas cancer with metastasis to lung and brain No problems noted. Brother Age: 63 Prostate cancer Brother Age: 57 Prostate cancer Sister Age: 50 No problems noted. Daughter Age: 27 No problems noted. Other No pertinent family history Past Surgical History Surgical History H/O rotator cuff surgery (Chronic) History of arthroscopy of left knee (Chronic) S/P removal of right ovary (Chronic) History of partial surgical removal of colon (Chronic) Social History Smoking Status: Former smoker tobacco type: cigarettes Do You Dip or Chew Tobacco: No Smoking End Date: 1998 Hx Alcohol Use: Yes Alcohol type: beer alcohol intake frequency: holidays/special occasions only Hx Substance Use: No substance use type: does not use Physical Exam Vital Signs Last Vital Signs Temp 36.4 C L 10/15/18 13:31 Pulse 68 10/15/18 13:31 Resp 20 10/15/18 13:31 BP 137/68 10/15/18 13:31 Pulse Ox 97 10/15/18 13:31 Testing Laboratory Results 10/14/18 05:38 10/14/18 05:38 PT 10.4 Seconds (9.0-12.0) 10/13/18 15:49 INR 1.0 (0.9-1.1) 10/13/18 15:49 APTT 47.0 Seconds (21.0-31.0) H* 10/15/18 12:56 Urine Color [place] 10/13/18 17:15 Urine Color Yellow 10/13/18 17:15 Urine Appearance Clear (Clear) 10/13/18 17:15 Urine Appearance Cloudy (Clear) A 10/13/18 17:15 Urine pH 5.0 (4.5-7.5) 10/13/18 17:15 Urine pH 5.0 (4.5-7.5) 10/13/18 17:15 Ur Specific [place] 1.011 (1.000-1.030) 10/13/18 17:15 Ur Specific [place] 1.016 (1.000-1.030) 10/13/18 17:15 Urine Protein 1+ (Negative) H 10/13/18 17:15 Urine Protein Negative (Negative) 10/13/18 17:15 Urine Glucose (UA) Negative (Negative) 10/13/18 17:15 Urine Glucose (UA) Negative (Negative) 10/13/18 17:15 Urine Ketones 1+ (Negative) H 10/13/18 17:15 Urine Ketones 1+ (Negative) H 10/13/18 17:15 Urine Nitrite Negative (Negative) 10/13/18 17:15 Urine Nitrite Positive (Negative) A 10/13/18 17:15 Ur Leukocyte Esterase 3+ (Negative) H 10/13/18 17:15 Ur Leukocyte Esterase Negative (Negative) 10/13/18 17:15 Urine WBC (Auto) >30 /hpf (0-5) H 10/13/18 17:15 Urine RBC (Auto) 0-4 /hpf (0-4) 10/13/18 17:15 U Hyaline Cast (Auto) 1-5 /lpf (0-5) 10/13/18 17:15 U Epithel Cells (Auto) 0-5 /lpf (0-5) 10/13/18 17:15 Urine Bacteria (Auto) 1+ (Negative) H 10/13/18 17:15 Blood Type A Positive 10/13/18 22:19 Antibody Screen NEGATIVE 10/13/18 22:19 10/13/18 17:15 Urine Culture - Preliminary Urine,Kidney Streptococcus species Staphylococcus species 10/13/18 16:52 Aerobic Blood Culture - Preliminary Blood No growth in Aerobic bottle after 24 hours. Anaerobic Blood Culture - Preliminary No growth in Anaerobic bottle after 24 hours. 10/13/18 16:44 Aerobic Blood Culture - Preliminary Blood No growth in Aerobic bottle after 24 hours. Anaerobic Blood Culture - Preliminary No growth in Anaerobic bottle after 24 hours.
[2018-10-15] MEDS ORDERED: PROPOFOL IV EMULSION 10 MG/ML 20 ML VIAL IV ONE (14:24)
[2018-10-15] MEDS ORDERED: LIDOCAINE HCL 2% 2 ML VIAL/AMP(20MG/ML) INFIL ONE (14:24)
[2018-10-15] MEDS ORDERED: ONDANSETRON INJ 2 MG/ML 2 ML VIAL ONE (14:35)
--- NOTE | 2018-10-15 15:18 | Anesthesiology Progress Note ---
Date of Service October 15, 2018 Anesthesia Post Procedure Vital Signs Vital Signs: Temp Pulse Pulse Resp BP BP Pulse Ox 10/15/18 15:03 61 20 106/59 L 96 10/15/18 13:31 36.4 C L 68 20 137/68 97 10/15/18 07:29 36.8 C 71 16 117/69 95 10/14/18 23:02 36.8 C 71 15 112/63 93 10/14/18 15:44 36.4 C L 69 16 109/62 94 Pain Intensity Abdomen: Pain Intensity: 3 Transfer of Care Handoff Completed per policy Notes Mental Status: alert / awake / arousable Patient Amnestic to Procedure: Yes Nausea / Vomiting: adequately controlled Pain: adequately controlled Airway Patency, RR, SpO2: stable & adequate BP & HR: stable & adequate Hydration State: stable & adequate Anesthetic Complications: no major complications apparent and Pt Satisfied with anesthetic care
--- NOTE | 2018-10-15 15:38 | GI REPORT ---
Patient Name: Guadalupe Araujo Procedure Date: 10/15/2018 2:33 PM Date of : 1955 Admit Type: Inpatient Age: 63 Gender: Female Attending MD: Sathish Rivero MD Procedure: Flexible Sigmoidoscopy Providers: Sathish Rivero MD Referring MD: Oli Doyle Indications: Abdominal pain Medicines: None Complications: No immediate complications. Estimated Blood Loss: Estimated blood loss: none. Procedure: Pre-Anesthesia Assessment: - ASA Grade Assessment: III - A patient with severe systemic disease. After obtaining informed consent, the endoscope was passed under direct vision. Throughout the procedure, the patient's blood pressure, pulse, and oxygen saturations were monitored continuously. The Endoscope was introduced through the anus and advanced to 10 cm from the anal verge. The Endoscope was introduced through the and advanced to. The flexible sigmoidoscopy was accomplished without difficulty. The patient tolerated the procedure well. The quality of the bowel preparation was adequate. Findings: The perianal and digital rectal examinations were normal. The mucosa of the rectum was normal. There was a ulcerated obstructing stricture from 10-12 cm that could not be intubated with an upper endoscope. Biopsies taken from stricture. The ultra-thin scope had to be used to intubate the stricture. Proximal to the stricture, there was solid stool and the colonic mucosa was normal. 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 I suspect that this is secondary to malignancy, rather than radiation, given time course and focal nature of stricture. Recommendation: Discharge patient to floor. Discuss management with surgery - a colonic stent may be possible, but she is at high risk for slippage of stent given distal location and short stricture. Sathish Rivero M.D. Sathish Rivero MD 10/15/2018 3:37:49 PM This report has been signed electronically. Note Initiated On: 10/15/2018 2:33 PM Number of Addenda: 0 I attest to the content of the Intraoperative Record and orders documented therein, exceptions below {[id number]}
--- NOTE | 2018-10-15 15:46 | Anesthesiology Progress Note ---
Date of Service October 15, 2018 Anesthesia Post Procedure Vital Signs Vital Signs: Temp Pulse Pulse Resp BP BP Pulse Ox 10/15/18 15:35 63 20 137/77 96 10/15/18 15:18 63 20 111/69 97 10/15/18 15:03 61 20 106/59 L 96 10/15/18 13:31 36.4 C L 68 20 137/68 97 10/15/18 07:29 36.8 C 71 16 117/69 95 10/14/18 23:02 36.8 C 71 15 112/63 93 Pain Intensity Abdomen: Pain Intensity: 3 Transfer of Care Handoff Completed per policy Notes Mental Status: alert / awake / arousable Patient Amnestic to Procedure: Yes Nausea / Vomiting: adequately controlled Pain: adequately controlled Airway Patency, RR, SpO2: stable & adequate BP & HR: stable & adequate Hydration State: stable & adequate Anesthetic Complications: no major complications apparent
[2018-10-15] MEDS: cefTRIAXone SODIUM 1,000 MG in DEXTROSE 5% 50 ML IV SCH (18:37)
--- NOTE | 2018-10-15 19:24 | Hospitalist Progress Note ---
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 I suspect that this is secondary to malignancy, rather than radiation, given time course and focal nature of stricture. Recommendation: Discharge patient to floor. Discuss management with surgery - a colonic stent may be possible, but she is at high risk for slippage of stent given distal location and short stricture. - Awaiting further recommendation by general surgery - Advance to full liquids on Ceftriaxone + Flagyl IV for possible proctocolitis - consult radiation oncology for evaluation, patient supposed to follow-up with them this week Complicated UTI -- Urine cultures: Staph and Streptococcus -- on antibiotics as noted above hx PE/DVT ongoing Lovenox Rx -- presently on heparin drip for possible procedures right hydronephrosis secondary to retroperitoneal tumor status post nephrostomy tube placement -- stable COPD, past tobacco abuse, status at baseline Hypokalemia secondary to diarrheal illness -- resolved Disposition pending usually lives at home Subjective Follow-up for large bowel obstruction seen resting in bed, comfortable Status post flex sigmoidoscopy today Abdominal pain improving No abdominal pain No fevers or chills No chest pain, shortness of breath no palpitation dizziness No other symptoms Review of Systems Review of Systems: All systems reviewed & are unremarkable except as noted in HPI & below Physical Exam Physical Exam: General- oriented x 3, not in distress, speaks in sentences with no effort or accessory muscle use Eyes- anicteric Neck- no JVD Lungs- clear breath sounds bilaterally No wheezing no crackles Heart- normal rate, regular rhythm; no murmurs Abdomen- normal bowel sounds, nondistended, soft, nontender Extremities- no pretibial edema, no calf tenderness Neuro- alert, oriented x 3; no gross focal neurologic deficits Skin- warm & dry Results & Data Vital Signs (Past 12 Hours) Vital Signs Temp Pulse Pulse Resp BP BP Pulse Ox 10/15/18 17:48 36.3 C L 64 18 151/96 H 97 10/15/18 16:47 36.5 C 64 16 117/73 97 10/15/18 16:17 36.4 C L 63 16 130/71 98 10/15/18 15:45 36.5 C 74 18 144/68 H 94 10/15/18 15:35 63 20 137/77 96 10/15/18 15:18 63 20 111/69 97 10/15/18 15:03 61 20 106/59 L 96 10/15/18 13:31 36.4 C L 68 20 137/68 97 10/15/18 07:29 36.8 C 71 16 117/69 95 Laboratory Results Laboratory Results - last 24 hr 10/15/18 10/15/18 06:07 12:56 APTT 38.6 H 47.0 H* PTT Ratio 1.4 1.7
[2018-10-15] MEDS: ALLOPURINOL 300 MG TAB PO SCH (21:35)
[2018-10-15] MEDS: Heparin Adult LOW DOSE Wt-Based Dextrose 5% 25,000 units/500 mL IV SCH (23:24)
[2018-10-15 23:32] LABS: Partial Thromboplastin Ratio 1.4; Partial Thromboplastin Time 36.7 Seconds (21.0-31.0)
[2018-10-16] MEDS ORDERED: HEPARIN IV BOLUS 4,000 UNITS in SYRINGE 0 ML IV ONE (00:15)
[2018-10-16] MEDS ORDERED: Nursing to Pharmacy Communication ONE (03:43)
[2018-10-16] MEDS: MoRPHine SULFATE 2 MG/ML CARP IV PRN (05:24)
[2018-10-16] MEDS: metroNIDAZOLE 500 MG/100 ML BAG IV SCH (05:25)
[2018-10-16 06:50] LABS: Hematocrit (blood only) 29.8 % (37-47); Hemoglobin 9.4 g/dL (12.0-16.0); Mean Corpuscular Hgb Conc 31.5 g/dL (32-36); Mean Platelet Volume 9.6 fL (7.4-10.4); Platelet Count 302 K/uL (130-400); RDW Coefficient of Variation 18.8 % (11.5-14.5); RDW Standard Deviation 61.7 fL (36.4-46.3); Red Blood Count 3.35 M/uL (4.2-5.4); White Blood Count 4.34 K/uL (4.8-10.8)
[2018-10-16 07:17] LABS: Partial Thromboplastin Time 54.8 Seconds (21.0-31.0)
[2018-10-16] MEDS: Heparin Adult LOW DOSE Wt-Based Dextrose 5% 25,000 units/500 mL IV SCH (07:25)
[2018-10-16 07:31] LABS: BUN Creatinine Ratio 3.8 (10-20); Calcium 8.1 mg/dl (8.5-10.1); Creatinine Clr Calc Pharmacy 63.7 ml/min; Est GFR (African American) 108.4; Est GFR (Non-African American) 93.5; Potassium 3.8 mmol/L (3.5-5.1)
[2018-10-16] MEDS: TIOTROPIUM BROMIDE 5 PUFF/90 MCG INH INH SCH (08:11)
[2018-10-16] MEDS: BUDESONIDE/FORMOTEROL FUMARATE 160/4.5 60 PUFFS/INHALER INH SCH (08:11)
[2018-10-16] MEDS: PARoxetine HCl 20 MG TAB PO SCH (08:11)
--- NOTE | 2018-10-16 09:20 | Surgery Progress Note ---
Date of Service October 16, 2018 Assessment & Plan (1) Stricture of colon: colonic stricture. etiology unclear at this point. bx pending regardless of etiology, surgery would be last resort and would like require permanent colostomy recommend colonic stent or dilation will d/w GI and primary team will continue to follow Subjective pt doing ok but still having lower abdominal colicky cramping c/w found colonic stricture. no n/v Physical Exam Physical Exam: alert/oriented. nad abd: soft. mild distension. mild lower abdominal ttp. no g/r/r Results & Data Vital Signs (Past 12 Hours) Vital Signs Temp Pulse Pulse Resp BP BP Pulse Ox 10/16/18 07:41 36.8 C 63 16 116/68 95 10/16/18 03:17 36.8 C 71 14 108/67 93 10/15/18 23:30 36.7 C 65 14 112/70 96 PG Care Time/CCT Total # of Minutes Spent Total Time Spent with Patient: Total time spent is greater than 50% in coordination of care (as documented) at patient's floor/unit and/or counseling patient:
--- NOTE | 2018-10-16 09:42 | Radiation OncologyConsultation ---
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 Araujo is a 63-year-old female who presents with locally advanced/unresectable neuroendocrine carcinoma. The patient has undergone multiple treatment regimens underneath the supervision of Dr. Fermín Chung and more recently was treated with external beam radiation therapy to 5040 cGy in 28 fractions which completed in September 2018. The patient was admitted to the hospital due to a bowel obstruction and underwent a colonoscopy by Dr. Rivero; during the procedure, Dr. Rivero was unable to pass the scope beyond 10 to 12 cm from the anal verge due to an obstruction. Dr. Rivero's assessment was that the obstruction was potentially more likely related to progressive or metastatic disease versus radiation changes given regional findings and timing of symptoms. Dr. Gray has also seen the patient from general surgery and has discussed options including a endoluminal stent as well as palliative diversion. I have been asked to evaluate the patient regarding her previous radiation therapy. Recommendations: After reviewing the previous imaging studies and our previous radiation therapy treatment, I agree with Dr. Rivero that it is a lower probability that the obstruction is due to her previous radiation therapy. The dose of radiation therapy delivered to the large bowel and sigmoid colon was not higher than what is normally administered for most patients in this region and it is uncommon to see bowel obstructions at this time point following the completion of radiation therapy. Additionally, the colonoscopy findings also support potential progression of disease which is also reflected on the CT of abdomen/pelvis. At this point, I favor that the patient most likely has progression or newly diagnosed metastatic disease involving the sigmoid colon. If the patient does have biopsy-proven disease and does not undergo resection, the patient should be stented and seen by both medical oncology and radiation oncology for discussion of further treatment options. Please note, I have concern about delivering further radiation therapy to palliate the obstruction given previous overlap and would prefer the patient undergo systemic therapy with or without a palliative resection or stenting. If it is felt that no other options are viable for therapy, we could discuss external beam radiation therapy as a last resort for palliation. Plan: 1. Follow-up biopsy results to confirm progression of disease. 2. Consider medical oncology consultation in the inpatient or outpatient setting. 3. Defer therapeutic management and intervention for obstruction to gastroenterology and general surgery. 4. No further intervention required from radiation oncology. We will continue to follow the patient intermittently and would like to see the patient in the outpatient setting. Can see the patient in the inpatient setting again if needed. Please call us with any further questions or concerns. History of Present Illness Attending Physician: Barbara Almaraz MD History of Present Illness 01/19/2006. Patient undergoes screening colonoscopy which was unremarkable. 07/19/2016. Patient underwent her follow-up routine colonoscopy. This showed an ulcerated cecal mass that was highly suspicious for a malignancy. Biopsies were taken. This confirmed an invasive adenocarcinoma moderate to poorly differentiated. There was intact expression of mismatch repair gene protein (MLH1, MSH 2, MSH 6 and PMS 2) noted. 07/19/2016. CEA level 1.9. 07/20/2016. Patient undergoes staging CT scan of the chest abdomen and pelvis. This study showed soft tissue mass involving the cecum with adjacent soft tissue stranding and nodularity. Additional mesenteric soft tissue mass was noted in the right lower quadrant with small retroperitoneal lymph nodes appreciated. There was no evidence of liver lesions. A 1.6 cm splenic lesion was appreciated. There were there was a mildly enlarged hilar lymph node on the right side which was unchanged compared to prior study of 2015. 08/08/2016. Dr. Kaufman performed exploratory laparotomy. He noted a large soft tissue mass in the right lower quadrant. This lesion was deemed unresectable because of adherence to the posterior abdominal wall. He performed a an ileo--small bowel to transverse colon [id number] anastomosis. 08/18/2016. Patient was seen by Dr. Fermín Chung who initiated modified FOLFOX 6. 10/23/2016. Decision was made to discontinue the oxaliplatin at that time. 12/18/2016. Oxaliplatin was again restarted after improvement of LFTs but again discontinued due to recurrent changes in LFTs. 02/12/2017. Patient completed the 5 fluorouracil and leucovorin. 02/26/2017. Patient underwent a restaging CT scan of the chest abdomen and pelvis. This showed no suspicious findings in the chest with interval decrease in the size of the mesenteric mass. It previously measured 3.6 x 2.5 cm and had decreased to 2.2 x 1.4 cm. There was improvement in the masslike thickening of the cecal wall and significant reduction in the previously noted hypodensity in the spleen from 1.6 cm down to 3 mm. No evidence of bony metastatic disease was appreciated. 03/23/2017. Dr. Cheng performed a right hemicolectomy and ileotransverse anastomosis. Final pathology confirmed a high-grade neuroendocrine carcinoma extending into the pericolonic adipose tissue. Margins were negative. There was evidence of lymphovascular and perineural invasion. Multiple tumor deposits were identified throughout the mesentery. 12 lymph nodes were identified 3 of which were positive for metastatic neuroendocrine carcinoma. The final staging was pT3 pN1c. 07/03/2017. Whole body PET CT scan with gallium-68 showed no evidence of somatostatin receptor positive peritoneal or non-peritoneal disease. Low level of uptake was noted in the ileocolic anastomotic site. 11/07/2017. Repeat gallium PET CT scan was performed and again showed no evidence of recurrent or metastatic disease. 04/24/2018. Patient was admitted to [facility] for abdominal pain and lower extremity edema. CT scan of the chest was performed showing small segmental pulmonary embolus within the posterior basilar segment of the right lower lobe. There was moderate emphysema. There was severe right hydronephrosis with delayed right nephrogram better seen on the CT scan of the abdomen and pelvis. CT scan of the abdomen and pelvis showed interval development of a conglomerate 6.3 x 4.3 cm retroperitoneal mass not seen on prior CT of May 14, 2017. This encased the aortic bifurcation and the IVC with suspected extensive deep thrombus within the IVC and right common iliac vein. This resulted in narrowing of the right ureter with resultant severe right hydronephrosis. This is consistent with metastatic disease. Suspected small segmental pulmonary embolus within the right lower lobe was noted. 04/26/2018. Patient transferred to [place]. A brain MRI was performed showing no evidence of malignancies. 04/29/2018. A core needle biopsy of the retroperitoneal mass was performed. This confirmed recurrent high-grade neuroendocrine carcinoma. Accession #: [id number]. A right nephrostomy tube was placed. Patient was started on Lovenox and discharged. 05/10/2018. Patient seen by Dr. Chung he recommended reinitiation of systemic chemotherapy consisting of cisplatin 75 mg/m on day 1, etoposide at 80 mg/m daily for 3 days and repeating every 21 days with prophylactic Neulasta. The hydroxyurea was discontinued. 05/21/2018. Bone scan was negative for metastatic disease. 06/05/2018. Patient is seen for her second cycle of systemic chemotherapy. 06/25/2018. Patient is seen for her third cycle of systemic chemotherapy. 07/09/2018. CT scan of the abdomen and pelvis with IV contrast. A heterogeneous mass is again seen within the retroperitoneum measuring approximately 6.0 x 5.0 cm. There was enlarged left-sided retroperitoneal lymph node seen measuring up to 1.1 cm in short axis. Bony structures are osteopenic with no evidence of metastatic disease. Again seen is extensive thrombus within the IVC as well as clot within the right iliac pain. 07/15/2018. Restaging PET CT scan performed. The large retroperitoneal mass was again noted and dimensions are unchanged from prior CT scan. SUV characteristics extend to 20. It appears to involve the inferior vena cava with the inferior extent of the mass having an SUV of 11. Right iliac nodes are present as previously described with several low pelvic nodes measuring 2 cm and SUV characteristics of 3.3. All findings within the abdomen are progressive compared to the patient's prior PET/CT scan and unchanged compared to the prior CT scan. 07/17/2018. Patient return to see Zoraida Eli PA-C. Given the lack of response to recent systemic chemotherapy it was decided by Dr. Chung to hold off on additional systemic chemotherapy at this time. He recommended a radiation oncology referral for consideration of possible salvage radiation. 07/24/2018. Patient seen in radiation oncology to discuss the role of salvage radiation. 08/07/2018 - 09/17/2018. External beam radiation therapy to the abdomen. Patient received 5040 cGy in 28 fractions at 180 cGy per fraction. 10/13/2018. Patient presents to emergency room for complaints of abdominal distention and fevers and increased bowel movements with pain. Patient admitted to hospital for further work-up and evaluation. 10/13/2018. CT of abdomen/pelvis. IMPRESSION: 1. Abnormal thickening involving the sigmoid colon and rectum. This favors a proctocolitis. There is also focal narrowing at the rectosigmoid junction with mild dilatation the colon proximal to this location. Therefore, this is concerning for developing large bowel obstruction. Of note, the focal area of narrowing at the rectosigmoid junction could be due to the inflammatory/infectious change or a possible lesion. 2. The heterogeneous retroperitoneal mass is again noted and similar to the prior study. There is associated thrombus within the IVC and right iliac vein. 3. Progressive retrocrural lymphadenopathy. 4. Trace ascites. There is also suggestion of subtle nodularity along the peritoneal linings as described above. Therefore, this is concerning for developing perineal carcinomatosis. 5. Left gonadal/pelvic pain varicosities. These demonstrate central hypodensity raising the possibility of partial thrombosis. The hypodensity could also be related to spread of tumor. This bears watching on future examinations. 6. Mild to moderate dilatation of the right renal pelvis which has progressed. However, the right ureter is normal in caliber. In addition, the percutaneous nephrostomy tube appears in good position. 7. Additional findings as described above. 10/15/2018. Sigmoidoscopy by Dr. Rivero. Impression: Obstructing ulcerated stricture 10 to 12 cm. "I suspect that this is secondary to malignancy rather than radiation, given time course and focal nature of stricture." Biopsies taken. Results pending. 10/16/2018. General surgery follow-up with Dr. Gray. Dr. Gray is recommended preference of stenting prior to permanent colostomy for therapeutic relief and diagnosis. Allergies Allergy/AdvReac Type Severity Reaction Status Date / Time No Known Allergies Allergy Verified 10/13/18 16:01 Home Medications Home Medications Medication Instructions Recorded Confirmed Type albuterol sulfate [ProAir HFA] 2 puff INHALATION Q6H PRN 04/24/18 10/13/18 History lorazepam 0.5 mg PO BID PRN 04/24/18 10/13/18 History paroxetine HCl 30 mg PO QAM 04/24/18 10/13/18 History Spiriva Respimat 2 puff INHALATION DAILY 05/25/18 10/13/18 History Symbicort 2 puff INHALATION DAILY 05/25/18 10/13/18 History allopurinol 300 mg PO HS 05/25/18 10/13/18 History prochlorperazine maleate 10 mg PO Q6H PRN 05/25/18 10/13/18 History oxycodone 5 mg tablet 5 mg PO Q4H PRN tab 08/12/18 10/13/18 History morphine ER 15 mg tablet,extended 15 mg PO Q12H PRN 08/26/18 10/13/18 History release diphenoxylate-atropine 2.5 1 tab PO Q6H PRN #60 tab 09/23/18 10/13/18 Rx mg-0.025 mg tablet enoxaparin 55 mg SUBCUT Q12H 10/13/18 10/13/18 History simethicone [Gas Relief] 80 mg PO DIRECTED PRN 10/13/18 10/13/18 History Patient History Medical History 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 S/P neoadjuvant modified FOLFOX 6 chemotherapy x 5 -Oxaliplatin induced the liver toxicity, received 5-Fluorouracil leucovorin x 7. Last cycle received on 02/12/2018. S/P right hemicolectomy on 03/23/2017 (by Dr. Cheng). 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 KRAS and BRAF mutation-->negative. 04/2018: -recurrent high-grade neuroendocrine carcinoma involving the retroperitoneal lymph regan region causing right hydronephrosis, S/P percutaneous nephrostomy drainage. -IVC thrombus, pulmonary embolism. - Essential thrombocythemia diagnosed in 2005, JAK2 mutation positive platelet count was over 1 million at that time the diagnosis. She is on hydroxyurea for that." Metastatic disease (Chronic) IVC thrombosis (Chronic) Pulmonary embolism (Chronic) Thrombocytosis (Chronic) Colon cancer (Chronic) S/P right hemicolectomy on 03/23/2017 (by Dr. Cheng). 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 COPD (chronic obstructive pulmonary disease) (Chronic) Surgical History H/O rotator cuff surgery (Chronic) History of arthroscopy of left knee (Chronic) S/P removal of right ovary (Chronic) History of partial surgical removal of colon (Chronic) Family History Grandmother (Paternal) , of childbirth No problems noted. Grandfather (Paternal) , of lung cancer at age 7 No problems noted. Father , of protsate cancer No problems noted. Mother , of breas cancer with metastasis to lung and brain No problems noted. Brother Age: 63 Prostate cancer Brother Age: 57 Prostate cancer Sister Age: 50 No problems noted. Daughter Age: 27 No problems noted. 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 She states she does continue to have some abdominal distention and has some discomfort however she feels a little bit better overall. Physical Exam Constitutional: WD/WN, vitals as above Results Laboratory Results: were reviewed and pertinent findings noted in HPI Pathology Results: were reviewed and pertinent findings noted in HPI Imaging Studies: were reviewed and pertinent findings noted in HPI Additional Studies 10/13/18 15:31 CT abd pelvis IV con only Stat 10/13/18 20:22 XR chest 1V portable Urgent Time Spent Attending I spent 40 minutes for this consultation, which included obtaining clinical information, performing a physical exam, recommending a plan of action and answering questions. Greater than 50% of the time spent was direct face to face interaction with the patient.
[2018-10-16] MEDS: HYDROmorphone INJ 1 MG/ML SYRINGE IV PRN ×3 (09:43→20:49)
[2018-10-16] MEDS ORDERED: VANCOMYCIN CONSULT ACTIVE PRN (10:13)
[2018-10-16] MEDS ORDERED: VANCOMYCIN HCL 1,000 MG in SODIUM CHLORIDE 0.9% 250 ML IV SCH (10:15)
--- NOTE | 2018-10-16 10:33 | Anesthesiology Progress Note ---
Date of Service October 16, 2018 Anesthesia Post Procedure Vital Signs Vital Signs: Temp Pulse Pulse Resp BP BP Pulse Ox 10/16/18 07:41 36.8 C 63 16 116/68 95 10/16/18 03:17 36.8 C 71 14 108/67 93 10/15/18 23:30 36.7 C 65 14 112/70 96 10/15/18 19:25 36.3 C L 76 16 105/50 L 97 10/15/18 17:48 36.3 C L 64 18 151/96 H 97 10/15/18 16:47 36.5 C 64 16 117/73 97 10/15/18 16:17 36.4 C L 63 16 130/71 98 10/15/18 15:45 36.5 C 74 18 144/68 H 94 10/15/18 15:35 63 20 137/77 96 10/15/18 15:18 63 20 111/69 97 10/15/18 15:03 61 20 106/59 L 96 10/15/18 13:31 36.4 C L 68 20 137/68 97 Pain Intensity Abdomen: Pain Intensity: 3 Notes Mental Status: alert / awake / arousable and participated in evaluation Nausea / Vomiting: adequately controlled Pain: adequately controlled Airway Patency, RR, SpO2: stable & adequate BP & HR: stable & adequate Hydration State: stable & adequate
[2018-10-16] MEDS ORDERED: PIPERACILL/TAZOBAC CONSULT ACTIVE PRN (10:35)
--- NOTE | 2018-10-16 10:53 | Hospitalist Progress Note ---
Date of Service October 16, 2018 Assessment & Plan (1) Intractable lower abdominal pain: Due to metastatic malignancy, large bowel obstruction secondary to meds, with pelvic and gonadal vein thrombosis Pain medication changed to IV Dilaudid P.o. meds discontinued with concern of possible poor absorption in the setting of bowel obstruction/widespread abdominal metastasis Patient will need continued titration of pain medication, as given the presentation of very advanced aggressive malignancy pain control will be very challenging in future Pain management consulted for further input (2) Large bowel obstruction: Large bowel obstruction, colonic ulcerative obstruction 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 focal narrowing at the rectosigmoid junction with mild dilatation the colon proximal to this location- concerning for developing large bowel obstruction. 2. The heterogeneous retroperitoneal mass is again noted and similar to the prior study. There is associated thrombus within the IVC and right iliac vein. 3. Progressive retrocrural lymphadenopathy. 4. Trace ascites. There is also suggestion of subtle nodularity along the peritoneal linings as described above. Therefore, this is concerning for developing perineal carcinomatosis. 5. Left gonadal/pelvic pain varicosities. These demonstrate central hypodensity raising the possibility of partial thrombosis. The hypodensity could also be related to spread of tumor. This bears watching on future examinations. Appreciate input from general surgery, and [facility] GI team -Status post flexible sigmoidoscopy October 15, 2018 by GI Impression: Obstructing ulcerated stricture 10-12 cm. suspect that this is secondary to malignancy, rather than radiation, given time course and focal nature of stricture. Discuss management with surgery - a colonic stent may be possible, but she is at high risk for slippage of stent given distal location and short stricture. - Awaiting further recommendation by general surgery -Patient is on full liquid diet, has been tolerating with, no nausea vomiting, having small bowel movement Has been getting IV metronidazole, Rocephin changed to Zosyn, for complicated UTI -Patient had a follow-up appointment with radiation oncology this week, radiation oncology consulted, appreciate input, no role of radiation at this point, advanced metastatic cancer Overall prognosis remains very poor (3) Pyelonephritis of right kidney: Complicated UTI Patient is status post right-sided percutaneous nephrostomy-secondary to cancer invasion to the right ureter -- Urine cultures: Staph and Streptococcus --Antibiotic changed to Zosyn (4) Abdominal pain: hx PE/DVT ongoing Lovenox Rx -- presently on heparin drip for possible procedures/Large bowel obstruction from metastatic ca CT abdomen pelvis shows: Possible IVC/right iliac vein thrombus, pelvic and gonadal vein thrombus Patient will need to be on anticoagulation indefinitely right hydronephrosis secondary to retroperitoneal tumor status post nephrostomy tube placement --CT abdomen pelvis shows: Mild to moderate dilatation of the right renal pelvis which has progressed. However, the right ureter is normal in caliber. In addition, the percutaneous nephrostomy tube appears in good position. Urine specimen: Positive for Streptococcus/enterococcus-antibiotic adjusted to IV Zosyn COPD, past tobacco abuse, status at baseline Hypokalemia secondary to diarrheal illness -- resolved Disposition Patient lives at home, independent in her ADLs Expected to be discharged home when medically stable Subjective Patient seen in room 354 bed 2 Sitting up on edge of bed, states that she had 2 episode of small liquid bowel movement earlier today, Finished her full liquid breakfast, with no nausea or vomiting Having severe intermittent cramps/pain on left lower quadrant At present 8 of the 10 Current pain medication only reducing the pain down to 6-but" did not stay in that level for long" No fever or chills, Cough or shortness of breath Patient appears to be in good spirit, despite of severe medical issues Physical Exam Constitutional: WD/WN, vitals as above + ill appearing Eyes: PERRL, conjunctivae normal, anicteric sclerae ENMT: external ear and nose normal, oropharynx normal Neck: trachea midline, no thyromegaly Respiratory: normal respiratory effort, lungs clear to auscultation Cardiovascular: RRR, no murmur, no edema Gastrointestinal (Abdomen): Percussion/Palpation: + abdomen tender (Left lower quadrant) and abdomen soft Tenderness on left lower quadrant, Prior healing surgical scar on mid abdomen Bowel sounds hypoactive Nephrostomy tube on right upper quadrant Musculoskeletal: +2 pedal edema bilaterally Skin: no rashes, warm and dry Neurologic: PERRL, EOMI, accommodation nl, no face palsy, no dysarthria Psychiatric: A+Ox3, euthymic affect Results & Data Vital Signs (Past 12 Hours) Vital Signs Temp Pulse Pulse Resp BP BP Pulse Ox 10/16/18 07:41 36.8 C 63 16 116/68 95 10/16/18 03:17 36.8 C 71 14 108/67 93 10/15/18 23:30 36.7 C 65 14 112/70 96 (1) Abdominal pain Abdominal location: left lower quadrant Qualified Code(s): R10.32 - Left lower quadrant pain
[2018-10-16] MEDS ORDERED: PIPERACILLIN/TAZOBACTAM 3.375 GM in DEXTROSE 5% 100 ML IV ONE (11:00)
[2018-10-16] MEDS ORDERED: POLYETHYLENE (MIRALAX) 17 GM PACK PO ONE (11:27)
--- NOTE | 2018-10-16 11:42 | Gastroenterology Progress Note ---
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 Recurrence of tumor noted w extension to retroperitoneal area, involving IVC, and surrounding lymph nodes. She presented w lower crampy, abd pain, bloating and BRBPR, soft stools. CT w signs of sigmoid/rectum area thickening w rectosigmoid junction narrowing ? inflammatory/infectious in nature vs underlying lesion. Stool cx and Cdiff negative. Flex sigmoidscopy done yesterday showed obstructing stricture 10-12cm, suspected to be malignant in nature. Path pending. - Plan for colonic stent placement tomorrow. Will keep her on CL diet. Start Miralax prep, no Dulcolax. NPO after midnight. Should also hold Heparin gtt at midnight. - Pain management per primary team Attg add: I interviewed and examined pt, reviewed chart and labs. Pt cont with abd pressure, mild distended and firm on exam. D/w Dr Gray - pt is at high risk for diverting ostomy. Will plan colon stent tomorrow. Subjective Pt c/o rectal pain and pressure. LLQ pressure as well. Still passing out small amts of stools w/o rectal bleeding now. No n/v, tolerating FL diet. Review of Systems Review of Systems: All systems reviewed & are unremarkable except as noted in HPI & below Physical Exam Constitutional: WD/WN, vitals as above well groomed, cooperative and comfortable Eyes: PERRL, conjunctivae normal, anicteric sclerae ENMT: external ear and nose normal, oropharynx normal Respiratory: normal respiratory effort, lungs clear to auscultation Cardiovascular: RRR, no murmur, no edema Gastrointestinal (Abdomen): Inspection/Auscultation: + abdomen distended (improved from prior days) and normal bowel sounds Percussion/Palpation: + abdomen tender (LLQ) Skin: no rashes, warm and dry no jaundice Neurologic: Motor/Sensory: no asterixis Psychiatric: A+Ox3, euthymic affect Lymphatic: no lymphedema Results & Data Vital Signs (Past 12 Hours) Vital Signs Temp Pulse Pulse Resp BP BP Pulse Ox 10/16/18 07:41 36.8 C 63 16 116/68 95 10/16/18 03:17 36.8 C 71 14 108/67 93
[2018-10-16] MEDS: D5W AND NSS 1,000 ML IV SCH (12:30)
[2018-10-16] MEDS: PIPERACILLIN/TAZOBACTAM 3.375 GM in DEXTROSE 5% 100 ML IV SCH ×2 (15:25→23:48)
[2018-10-16] MEDS: ALLOPURINOL 300 MG TAB PO SCH (20:53)
[2018-10-17] MEDS: HYDROmorphone INJ 1 MG/ML SYRINGE IV PRN ×2 (02:45→08:06)
[2018-10-17] MEDS: HEPARIN 100 UNIT/ML 5ML FLUSH FLUSH PRN ×2 (03:49→20:20)
[2018-10-17 06:21] LABS: Partial Thromboplastin Ratio > 5.1
[2018-10-17 06:28] LABS: Partial Thromboplastin Time > 139.0 Seconds (21.0-31.0)
[2018-10-17 06:34] LABS: Calcium 8.9 mg/dl (8.5-10.1); Creatinine Clr Calc Pharmacy 45.5 ml/min; Est GFR (African American) 72.2; Est GFR (Non-African American) 62.3; Potassium 3.6 mmol/L (3.5-5.1)
--- NOTE | 2018-10-17 07:25 | XRay Report ---
XR KUB/Abdomen 1 view CLINICAL HISTORY: 63 years-old Female presenting with sbo?. TECHNIQUE: Single supine view of the abdomen was obtained. COMPARISON: CT from 10/13/2018. FINDINGS: Right nephrostomy tube remains in place. Paucity of bowel gas, nonspecific. Anastomotic suture margin is noted in the left mid abdomen and central abdomen. No gross pneumoperitoneum. Added density of th e abdomen could suggest ascites. Allowing for bowel gas and stool, no calcifications to suggest nephrolithiasis. Scoliosis and degenerative changes of the spine. Lung bases clear. IMPRESSION: 1. Possibly of bowel gas, nonspecific. Obstruction cannot be excluded. Electronically signed by: Hunter Ochoa M.D. 10/17/2018 7:24 AM
[2018-10-17] MEDS: PIPERACILLIN/TAZOBACTAM 3.375 GM in DEXTROSE 5% 100 ML IV SCH ×3 (07:59→23:38)
[2018-10-17] MEDS: PARoxetine HCl 20 MG TAB PO SCH (08:00)
[2018-10-17] MEDS: TIOTROPIUM BROMIDE 5 PUFF/90 MCG INH INH SCH (08:01)
[2018-10-17] MEDS: BUDESONIDE/FORMOTEROL FUMARATE 160/4.5 60 PUFFS/INHALER INH SCH (08:01)
--- NOTE | 2018-10-17 08:17 | Anesthesiology Consultation ---
Date of Service October 17, 2018 Assessment & Plan (1) Encounter for pre-operative examination: Chart Review Chart Review: Acceptable Risk for Surgery Consults Requested none ASA ASA4 Proposed Anesthesia Anesthesia Type: General Risk / Benefits Reviewed With: PT / POA / Parent / Guardian, Accepts Plan and Informed Consent Obtained History Surgery Operation Date: 10/15/18 09:30 Proposed Procedures p Flexible Sigmoidoscopy Dr Rivero - Sathish Rivero Operation Date: 10/17/18 12:00 Proposed Procedures p Colonoscopy with Colonic Stent under Fluoro - Irphan Ubaldo Talleylightsharona Height/Weight Height: 5 ft 1 in Weight: 56.8 kg Allergies Allergy/AdvReac Type Severity Reaction Status Date / Time No Known Allergies Allergy Verified 10/13/18 16:01 Medications Home Medications Medication Instructions Recorded Confirmed Last Taken albuterol sulfate [ProAir HFA] 2 puff INHALATION Q6H PRN 04/24/18 10/13/18 Unknown lorazepam 0.5 mg PO BID PRN 04/24/18 10/13/18 Unknown paroxetine HCl 30 mg PO QAM 04/24/18 10/13/18 10/13/18 Spiriva Respimat 2 puff INHALATION DAILY 05/25/18 10/13/18 10/13/18 Symbicort 2 puff INHALATION DAILY 05/25/18 10/13/18 10/13/18 allopurinol 300 mg PO HS 05/25/18 10/13/18 10/12/18 prochlorperazine maleate 10 mg PO Q6H PRN 05/25/18 10/13/18 Unknown oxycodone 5 mg tablet 5 mg PO Q4H PRN tab 08/12/18 10/13/18 Unknown morphine ER 15 mg tablet,extended 15 mg PO Q12H PRN 08/26/18 10/13/18 Unknown release diphenoxylate-atropine 2.5 1 tab PO Q6H PRN #60 tab 09/23/18 10/13/18 10/13/18 14:00 mg-0.025 mg tablet enoxaparin 55 mg SUBCUT Q12H 10/13/18 10/13/18 10/13/18 08:30 simethicone [Gas Relief] 80 mg PO DIRECTED PRN 10/13/18 10/13/18 Unknown Active Medications Generic Name Dose Route Start Last Admin Trade Name Freq PRN Reason Stop Dose Admin Allopurinol 300 mg 10/13/18 22:09 10/16/18 20:53 Zyloprim PO 11/12/18 22:08 300 mg HS VERONICA Administration Budesonide/Formoterol Fumarate 2 puffs 10/14/18 09:00 10/17/18 08:01 Symbicort 160mcg/4.5mcg INH 11/13/18 08:59 2 puffs DAILY VERONICA Administration Heparin Sodium (Porcine) 5 ml 10/14/18 00:36 10/17/18 03:49 Heparin Sod 100 Unit/Ml Flush FLUSH 11/13/18 00:44 5 ml PRN PRN Administration Flush Hydromorphone HCl 1 mg 10/16/18 09:23 10/17/18 08:06 Dilaudid IV 10/30/18 09:22 1 mg Q2H PRN Administration Pain Heparin Sodium/Dextrose 25,000 units in 500 mls @ 0 mls/hr 10/13/18 23:00 10/16/18 23:48 Heparin Sodium/Dextrose IV 11/12/18 22:59 0 units/hr .Q0M VERONICA 0 mls/hr Titration Protocol 0 UNITS/HR Piperacillin Sod/Tazobactam 115 mls @ 28.75 mls/hr 10/16/18 16:00 10/17/18 11:28 Sod 3.375 gm/ Dextrose IV 10/26/18 15:59 Infused Q8H VERONICA Infusion Protocol Paroxetine HCl 30 mg 10/14/18 09:00 10/17/18 08:00 Paxil PO 11/13/18 08:59 30 mg QAM VERONICA Administration Tiotropium [place] 2 puffs 10/14/18 09:00 10/17/18 08:01 Spiriva INH 11/13/18 08:59 2 puffs DAILY VERONICA Administration NPO Date Last Intake of Fluids: 10/16/18 Time Last Intake of Fluids: 23:00 Last Intake of Fluids Comment: sip of water Date Last Intake of Solids: 10/16/18 Time Last Intake of Solids: 23:00 Past Medical History Medical History 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, found to have extensive retroperitoneal disease, IVC thrombus, pulmonary embolism, core needle biopsy of the retroperitoneal mass confirmed high-grade neuroendocrine carcinoma recurrent Dr Sheldon progress note "DIAGNOSIS: - Cecal adenocarcinoma, S/P exploratory laparotomy, found to have unresectable disease underwent ileo- small bowel to transverse colon [id number] anastomosis on 08/08/2016. S/P neoadjuvant modified FOLFOX 6 chemotherapy x 5 -Oxaliplatin induced the liver toxicity, received 5-Fluorouracil leucovorin x 7. Last cycle received on 02/12/2018. S/P right hemicolectomy on 03/23/2017 (by Dr. Cheng). 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 KRAS and BRAF mutation-->negative. 04/2018: -recurrent high-grade neuroendocrine carcinoma involving the retroperitoneal lymph regan region causing right hydronephrosis, S/P percutaneous nephrostomy drainage. -IVC thrombus, pulmonary embolism. - Essential thrombocythemia diagnosed in 2005, JAK2 mutation positive platelet count was over 1 million at that time the diagnosis. She is on hydroxyurea for that." Metastatic disease (Chronic) IVC thrombosis (Chronic) Pulmonary embolism (Chronic) Thrombocytosis (Chronic) Colon cancer (Chronic) S/P right hemicolectomy on 03/23/2017 (by Dr. Cheng). 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 COPD (chronic obstructive pulmonary disease) (Chronic) Exercise / Class Metabolic Activity II 4-5 Yardwork/Stairs/Walk up hill Past Family History Family History Grandmother (Paternal) , of childbirth No problems noted. Grandfather (Paternal) , of lung cancer at age 7 No problems noted. Father , of protsate cancer No problems noted. Mother , of breas cancer with metastasis to lung and brain No problems noted. Brother Age: 63 Prostate cancer Brother Age: 57 Prostate cancer Sister Age: 50 No problems noted. Daughter Age: 27 No problems noted. Other No pertinent family history Past Surgical History Surgical History H/O rotator cuff surgery (Chronic) History of arthroscopy of left knee (Chronic) S/P removal of right ovary (Chronic) History of partial surgical removal of colon (Chronic) Past Anesthesia History No Hx of Anesthesia Complications and No Family Hx of Anesthesia Complications History of PONV No Hx of PONV and No Hx of Motion Sickness Social History Smoking Status: Former smoker tobacco type: cigarettes Do You Dip or Chew Tobacco: No Smoking End Date: 1998 Hx Alcohol Use: Yes Alcohol type: beer alcohol intake frequency: holidays/special occasions only Hx Substance Use: No substance use type: does not use Physical Exam Vital Signs Last Vital Signs Temp 97.9 F 10/17/18 07:10 Pulse 73 10/17/18 07:10 Resp 16 10/17/18 07:10 BP 133/70 10/17/18 07:10 Pulse Ox 98 10/17/18 07:10 ENMT Mouth: no dentition abnormality Thyromental Distance: > or= 3.5 Finger Breadths Mallampati Class: I Neck normal visual inspection Respiratory normal respiratory effort Auscultation: lungs clear to auscultation bilaterally Cardiovascular Rate/Rhythm: regular rate and regular rhythm Testing Laboratory Results 10/16/18 06:38 10/17/18 05:34 PT 10.4 Seconds (9.0-12.0) 10/13/18 15:49 INR 1.0 (0.9-1.1) 10/13/18 15:49 APTT > 139.0 Seconds (21.0-31.0) H* 10/17/18 05:34 Urine Color Faulkner 10/13/18 17:15 Urine Color Yellow 10/13/18 17:15 Urine Appearance Clear (Clear) 10/13/18 17:15 Urine Appearance Cloudy (Clear) A 10/13/18 17:15 Urine pH 5.0 (4.5-7.5) 10/13/18 17:15 Urine pH 5.0 (4.5-7.5) 10/13/18 17:15 Ur Specific Geary 1.011 (1.000-1.030) 10/13/18 17:15 Ur Specific Geary 1.016 (1.000-1.030) 10/13/18 17:15 Urine Protein 1+ (Negative) H 10/13/18 17:15 Urine Protein Negative (Negative) 10/13/18 17:15 Urine Glucose (UA) Negative (Negative) 10/13/18 17:15 Urine Glucose (UA) Negative (Negative) 10/13/18 17:15 Urine Ketones 1+ (Negative) H 10/13/18 17:15 Urine Ketones 1+ (Negative) H 10/13/18 17:15 Urine Nitrite Negative (Negative) 10/13/18 17:15 Urine Nitrite Positive (Negative) A 10/13/18 17:15 Ur Leukocyte Esterase 3+ (Negative) H 10/13/18 17:15 Ur Leukocyte Esterase Negative (Negative) 10/13/18 17:15 Urine WBC (Auto) >30 /hpf (0-5) H 10/13/18 17:15 Urine RBC (Auto) 0-4 /hpf (0-4) 10/13/18 17:15 U Hyaline Cast (Auto) 1-5 /lpf (0-5) 10/13/18 17:15 U Epithel Cells (Auto) 0-5 /lpf (0-5) 10/13/18 17:15 Urine Bacteria (Auto) 1+ (Negative) H 10/13/18 17:15 Blood Type A Positive 10/13/18 22:19 Antibody Screen NEGATIVE 10/13/18 22:19 10/14/18 15:48 Escherichia coli Shiga Toxins Test - Final Stool Stool Culture - Final No Salmonella isolated, No Shigella isolated, No Campylobacter jejuni isolated. 10/13/18 17:15 Urine Culture - Preliminary Urine,Kidney Enterococcus faecalis Staphylococcus lugdunensis Staphylococcus species 10/13/18 16:52 Aerobic Blood Culture - Preliminary Blood No growth in Aerobic bottle after 48 hours. Anaerobic Blood Culture - Preliminary No growth in Anaerobic bottle after 48 hours. 10/13/18 16:44 Aerobic Blood Culture - Preliminary Blood No growth in Aerobic bottle after 48 hours. Anaerobic Blood Culture - Preliminary No growth in Anaerobic bottle after 48 hours. Electrocardiogram Date: 05/25/18 Findings: + NSR @ (71 bpm) Chest X-Ray Date: 10/13/18 Findings: + NAD
--- NOTE | 2018-10-17 08:47 | Pain Management Consultation ---
Date of Consultation October 17, 2018 Assessment & Plan (1) Intractable lower abdominal pain: 1. Due to the patient's nausea, would recommend the initiation of Fentanyl patch at 12mcg for pain relief. 2. Continue IV Dilaudid PRN breakthrough pain. 3. She may be a candidate for a superior hypogastric nerve block on an outpatient basis to further diminish lower abdominal pain. 4. May consider exchanging Paroxetine for Cymbalta to further diminish pain burden but the patient has been stable on Paroxetine for a long period of time. 5. Thank you for the consultation. 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 Araujo is a 63-year-old female who presents with neuroendocrine carcinoma with metastasis. Patient does have a bowel obstruction due to a stricture. She is scheduled for a stent placement into the distal colon today. Patient does continue to have small amounts of loose watery stools and emesis. She describes an aching and cramping pain in the abdomen, mostly in the lower region. She does also experience an intermittent pain in the rectum but has not had that pain for the last 24 hours. Pain is currently rated 3/10. She has been previously prescribed Oxycodone and was taking at sparingly at home. She denied any side effects from Oxycodone. As the patient is nauseated and vomiting, she has not been able to keep the Oxycodone down long enough to take effect. Patient has been receiving IV Dilaudid with moderate pain relief. Patient denies any constitutional complaints. Case discussed with Dr. Kizzy Palomino Allergies Allergy/AdvReac Type Severity Reaction Status Date / Time No Known Allergies Allergy Verified 10/13/18 16:01 Home Medications Home Medications Medication Instructions Recorded Confirmed Type albuterol sulfate [ProAir HFA] 2 puff INHALATION Q6H PRN 04/24/18 10/13/18 History lorazepam 0.5 mg PO BID PRN 04/24/18 10/13/18 History paroxetine HCl 30 mg PO QAM 04/24/18 10/13/18 History Spiriva Respimat 2 puff INHALATION DAILY 05/25/18 10/13/18 History Symbicort 2 puff INHALATION DAILY 05/25/18 10/13/18 History allopurinol 300 mg PO HS 05/25/18 10/13/18 History prochlorperazine maleate 10 mg PO Q6H PRN 05/25/18 10/13/18 History oxycodone 5 mg tablet 5 mg PO Q4H PRN tab 08/12/18 10/13/18 History morphine ER 15 mg tablet,extended 15 mg PO Q12H PRN 08/26/18 10/13/18 History release diphenoxylate-atropine 2.5 1 tab PO Q6H PRN #60 tab 09/23/18 10/13/18 Rx mg-0.025 mg tablet enoxaparin 55 mg SUBCUT Q12H 10/13/18 10/13/18 History simethicone [Gas Relief] 80 mg PO DIRECTED PRN 10/13/18 10/13/18 History Pain History Pain Intensity [facility] Combined Pain Scale: 3-Mild - Interferes with pleasures of life. 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 S/P neoadjuvant modified FOLFOX 6 chemotherapy x 5 -Oxaliplatin induced the liver toxicity, received 5-Fluorouracil leucovorin x 7. Last cycle received on 02/12/2018. S/P right hemicolectomy on 03/23/2017 (by Dr. Cheng). 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 KRAS and BRAF mutation-->negative. 04/2018: -recurrent high-grade neuroendocrine carcinoma involving the retroperitoneal lymph regan region causing right hydronephrosis, S/P percutaneous nephrostomy drainage. -IVC thrombus, pulmonary embolism. - Essential thrombocythemia diagnosed in 2005, JAK2 mutation positive platelet count was over 1 million at that time the diagnosis. She is on hydroxyurea for that." Metastatic disease (Chronic) IVC thrombosis (Chronic) Pulmonary embolism (Chronic) Thrombocytosis (Chronic) Colon cancer (Chronic) S/P right hemicolectomy on 03/23/2017 (by Dr. Cheng). 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 COPD (chronic obstructive pulmonary disease) (Chronic) Surgical History H/O rotator cuff surgery (Chronic) History of arthroscopy of left knee (Chronic) S/P removal of right ovary (Chronic) History of partial surgical removal of colon (Chronic) Family History Grandmother (Paternal) , of childbirth No problems noted. Grandfather (Paternal) , of lung cancer at age 7 No problems noted. Father , of protsate cancer No problems noted. Mother , of breas cancer with metastasis to lung and brain No problems noted. Brother Age: 63 Prostate cancer Brother Age: 57 Prostate cancer Sister Age: 50 No problems noted. Daughter Age: 27 No problems noted. Other No pertinent family history Social History Preferred Language: Kazakh Communication Ability: Effective Glass Curvature Gauger Required: No Beliefs That Will Affect Care: None marital status: Current Living Situation: Spouse Other Information That Helps Us Care for You: No Feels Safe at Home: Yes Safety Concerns: Feels Safe At This Time Smoking Status: Former smoker Tobacco Type: cigarettes ; Do You Dip or Chew Tobacco: No ; Smoking End Date: 1998 ; Second Hand Exposure: No ; Tobacco Cessation Education Requested by Patient: No Hx Alcohol Use: Yes Alcohol type: beer Hx Substance Use: No Physical Exam Physical Exam: GENERAL: 63 year old white female. Speech and cognition is intact. Mood and affect is appropriate. In no acute distress. HEAD: Normocephalic; atraumatic. EYES: Pupils are round, equal, and reactive to light; EOM intact. ENT: No external ear discharge or lesions. No rhinorrhea or epistaxis. No mucosal lesions. NECK: Full ROM; trachea is midline; no TTP; no cervical lymphadenopathy. CHEST: Regular chest respiration and excursion. ABDOMEN: Abdomen is distended. Tenderness and palpable masses in the lower abdomen. No rebound tenderness or peritoneal signs. EXTREMITIES: Using extremities appropriately. NEURO: CN II-XII grossly intact with no focal deficits noted. Ambulating well around the room. SKIN: No lesions, erythema, or rashes noted. Results Diagnostic Review CT Findings: ABDOMEN AND PELVIS CT WITH IV CONTRAST CT DOSE: 248.12 mGy.cm HISTORY: Lower abdominal pain. History of malignancy. TECHNIQUE: Multiaxial CT images of the abdomen and pelvis were performed following the use of intravenous contrast. A dose lowering technique was utilized adhering to the principles of ALARA. COMPARISON STUDY: PET/CT 07/15/2018. Abdomen and pelvis CT 07/09/2018. FINDINGS: Emphysema. No pneumoperitoneum. No pneumatosis. No suspicious lytic or blastic osseous lesions. Retrocrural lymphadenopathy has progressed. Dominant retrocrural lymph node measures 13 mm. No hepatic or splenic masses. The adrenal glands, pancreas, and gallbladder are unremarkable. Right-sided percutaneous nephrostomy tube appears in good position. Slight delayed right-sided nephrogram. [id number] dilatation of right renal pelvis which has progressed. However, the right ureter is normal in caliber. The bladder is unremarkable. The IVC and right common iliac vein thrombosis is not significantly changed. The infiltrative retroperitoneal mass at the aortic bifurcation is also similar to the prior study. Left gonadal/pelvic vein varicosities persist. Some of these demonstrate central hypodensity and could be partially thrombosed. The main portal vein remains patent. Trace ascites. Evidence for prior bowel anastomosis. Perirectal inflammatory change/edema. There is abnormal thickening in the sigmoid colon and rectum. Is also a focal area of narrowing at the rectosigmoid junction best seen image [id number]. The proximal sigmoid colon which is mildly distended and filled with stool colon proximal to this area of narrowing is mildly distended and stool-filled. Areas of subtle nodularity along the peritoneal linings concerning for developing peritoneal carcinomatosis. Dominant enhancing nodular density within the right lower quadrant on image 261 measures 5 mm. IMPRESSION: 1. Abnormal thickening involving the sigmoid colon and rectum. This favors a proctocolitis. There is also focal narrowing at the rectosigmoid junction with mild dilatation the colon proximal to this location. Therefore, this is concerning for developing large bowel obstruction. Of note, the focal area of narrowing at the rectosigmoid junction could be due to the inflammatory/infectious change or a possible lesion. 2. The heterogeneous retroperitoneal mass is again noted and similar to the prior study. There is associated thrombus within the IVC and right iliac vein. 3. Progressive retrocrural lymphadenopathy. 4. Trace ascites. There is also suggestion of subtle nodularity along the peritoneal linings as described above. Therefore, this is concerning for developing perineal carcinomatosis. 5. Left gonadal/pelvic pain varicosities. These demonstrate central hypodensity raising the possibility of partial thrombosis. The hypodensity could also be related to spread of tumor. This bears watching on future examinations. 6. Mild to moderate dilatation of the right renal pelvis which has progressed. However, the right ureter is normal in caliber. In addition, the percutaneous nephrostomy tube appears in good position. 7. Additional findings as described above. Electronically signed by: Rush Matthews M.D. 10/13/2018 6:25 PM
--- NOTE | 2018-10-17 10:26 | Gastroenterology Progress Note ---
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 Recurrence of tumor noted w extension to retroperitoneal area, involving IVC, and surrounding lymph nodes. She presented w lower crampy, abd pain, bloating and BRBPR, soft stools. CT w signs of sigmoid/rectum area thickening w rectosigmoid junction narrowing ? inflammatory/infectious in nature vs underlying lesion. Stool cx and Cdiff negative. Flex sigmoidscopy done yesterday showed obstructing stricture 10-12cm, suspected to be malignant in nature. Path pending. - Place NGT to Low intermittent suction given N/V - Keep NPO - Plan for colonic stent placement in OR today by Dr. Rivero. Attg add: I interviewed and examined pt, reviewed chart and labs. Pt w n/v last night, incr abd distention. + BM's this am. NGt placed with 250 cc suctioned. Plan stent / flex sig today. Subjective Pt completed Miralax prep yesterday. Passing liquid brown stools but also having a lot of n/v, increased abd distension Review of Systems Review of Systems: All systems reviewed & are unremarkable except as noted in HPI & below Physical Exam Constitutional: WD/WN, vitals as above well groomed, cooperative and comfortable Eyes: PERRL, conjunctivae normal, anicteric sclerae ENMT: external ear and nose normal, oropharynx normal Respiratory: normal respiratory effort, lungs clear to auscultation Cardiovascular: RRR, no murmur, no edema Gastrointestinal (Abdomen): Inspection/Auscultation: + abdomen distended (improved from prior days) and + hypoactive bowel sounds Percussion/Palpation: + abdomen tender (diffuse) Skin: no rashes, warm and dry no jaundice Neurologic: Motor/Sensory: no asterixis Psychiatric: A+Ox3, euthymic affect Lymphatic: no lymphedema Results & Data Vital Signs (Past 12 Hours) Vital Signs Temp Pulse Resp BP BP Pulse Ox 10/17/18 07:10 36.6 C 73 16 133/70 98 10/16/18 23:06 36.8 C 82 16 158/99 H 94
[2018-10-17] MEDS ORDERED: MIDAZOLAM HCL 1 MG/ML 2ML VIAL ONE (12:14)
[2018-10-17] MEDS ORDERED: LIDOCAINE HCL 2% 2 ML VIAL/AMP(20MG/ML) INFIL ONE (12:14)
[2018-10-17] MEDS ORDERED: fentaNYL citrate 100 MCG/2 ML VIAL ONE (12:14)
[2018-10-17] MEDS ORDERED: PROPOFOL IV EMULSION 10 MG/ML 20 ML VIAL IV ONE (12:14)
[2018-10-17] MEDS ORDERED: ROCURONIUM BROMIDE 10 MG/ML 5 ML VIAL ONE (13:45)
[2018-10-17] MEDS ORDERED: NEOSTIGMINE METHYLSULFATE 5 MG/5 ML SYR ONE (13:45)
[2018-10-17] MEDS ORDERED: SUCCINYLCHOLINE CHLORIDE 20 MG/ML 10 ML VIAL ONE (13:45)
[2018-10-17] MEDS ORDERED: ONDANSETRON INJ 2 MG/ML 2 ML VIAL ONE (13:45)
[2018-10-17] MEDS ORDERED: GLYCOPYRROLATE 0.2 MG/ML VIAL ONE (13:45)
--- NOTE | 2018-10-17 14:14 | Fluoroscopy Report ---
[place] [facility] CLINICAL HISTORY: 63 years-old Female presenting with COLONIC STENT. TECHNIQUE: 5 fluoroscopic image(s) recorded as part of an intraoperative procedure. COMPARISON: CT from 10/13/2018 and plain radiograph from 10/17/2018. FINDINGS/IMPRESSION: A guidewire was introduced into the colon across the site of stenosis in the rectosigmoid junction. C ontrast was injected into the colon. Subsequently, a stent was placed at the rectosigmoid junction. Please see surgical report for further details. Dose area product (mGy.cm^2): 19.949. Fluoroscopy time: 3 minutes 47.9 seconds. Number or time of high level fluoroscopy (HLF), digital spot, or digital subtraction images: 0. Electronically signed by: Hunter Ochoa M.D. 10/17/2018 2:12 PM
--- NOTE | 2018-10-17 14:15 | GI REPORT ---
Patient Name: Guadalupe Araujo Procedure Date: 10/17/2018 12:06 PM Date of : 1955 Admit Type: Inpatient Age: 63 Gender: Female Attending MD: Sathish Rivero MD Procedure: Colonoscopy Providers: Sathish Rivero MD Referring MD: Sathish Rivero MD, Barbara Almaraz Indications: Therapeutic procedure; pt with malignant str Medicines: See the Anesthesia note for documentation of the administered medications Complications: . No immediate complications. Estimated Blood Loss: Estimated blood loss: none. Procedure: Pre-Anesthesia Assessment: - ASA Grade Assessment: IV - A patient with severe systemic disease that is a constant threat to life. - After reviewing the risks and benefits, the patient was deemed in satisfactory condition to undergo the procedure. After I obtained informed consent, the scope was passed under direct vision. Throughout the procedure, the patient's blood pressure, pulse, and oxygen saturations were monitored continuously. The Endoscope was introduced through the anus and advanced to the descending colon for evaluation. This was the intended extent. The scope was introduced through the anus and advanced to the rectum. The colonoscopy was performed without difficulty. The patient tolerated the procedure well. The quality of the bowel preparation was adequate. Findings: The perianal and digital rectal examinations wnced ere normal. There was an ulcerated stricture approximate 10 cm from the anus. This was crossed with a ultra thin endoscope. A .035" Jagwire was advanced beyond the area of the stricture. The tip of the wire was advanced into the descending colon under endoscopic and fluoroscopic guidance. The ultra thin endoscope was then withdrawn and the wire was left in place. A therapeutic upper endoscope was backloaded onto the wire, and advanced to the distal end of the stricture. A clip was placed to cooper the distal end of the stricture. The stricture was then biopsied. A 24 mm x 10 cm stent was advanced under fluoroscopic guidance and positioned so that the middle of the stent was at the waist of the stricture. The stent was then deployed under fluoroscopic guidance. The stent bridged the stricture, and there was a large amount of stool that was seen to pass through the open stent. Recommendation: - Discharge patient to floor. Clear liquids only. Sathish Rivero M.D. Sathish Rivero MD 10/17/2018 2:14:41 PM This report has been signed electronically. Note Initiated On: 10/17/2018 12:06 PM Number of Addenda: 0 I attest to the content of the Intraoperative Record and orders documented therein, exceptions below {[id number]}
[2018-10-17] MEDS ORDERED: PROCHLORPERAZINE MALEATE 10 MG TAB PO PRN (15:11)
[2018-10-17] MEDS ORDERED: SIMETHICONE 80 MG CHEW PO PRN (15:11)
[2018-10-17] MEDS ORDERED: DIPHENOXYLATE/ATROPINE 2.5/0.025MG TAB PO PRN (15:11)
[2018-10-17] MEDS ORDERED: MoRPHine SULFATE CR 15 MG TABCR PO PRN (15:11)
[2018-10-17] MEDS ORDERED: ALBUTEROL HFA 8 GM INHALER INH PRN (15:30)
[2018-10-17 16:09] LABS: Partial Thromboplastin Ratio 1.3; Partial Thromboplastin Time 33.9 Seconds (21.0-31.0)
[2018-10-17] MEDS ORDERED: ENOXAPARIN INJ 60 MG/0.6 ML SYR SQ SCH (17:00)
--- NOTE | 2018-10-17 18:13 | Hospitalist Progress Note ---
Date of Service October 17, 2018 Assessment & Plan (1) Intractable lower abdominal pain: Due to metastatic malignancy, large bowel obstruction secondary to meds, with pelvic and gonadal vein thrombosis Pain medication changed to IV Dilaudid P.o. meds discontinued with concern of possible poor absorption in the setting of bowel obstruction/widespread abdominal metastasis Patient will need continued titration of pain medication, as given the presentation of very advanced aggressive malignancy pain control will be very challenging in future Pain management consulted for further input (2) Large bowel obstruction: Large bowel obstruction, colonic ulcerative obstruction 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 focal narrowing at the rectosigmoid junction with mild dilatation the colon proximal to this location- concerning for developing large bowel obstruction. 2. The heterogeneous retroperitoneal mass is again noted and similar to the prior study. There is associated thrombus within the IVC and right iliac vein. 3. Progressive retrocrural lymphadenopathy. 4. Trace ascites. There is also suggestion of subtle nodularity along the peritoneal linings as described above. Therefore, this is concerning for developing perineal carcinomatosis. 5. Left gonadal/pelvic pain varicosities. These demonstrate central hypodensity raising the possibility of partial thrombosis. The hypodensity could also be related to spread of tumor. This bears watching on future examinations. Appreciate input from general surgery, and [facility] GI team -Status post flexible sigmoidoscopy October 15, 2018 by GI Impression: Obstructing ulcerated stricture 10-12 cm. suspect that this is secondary to malignancy, rather than radiation, given time course and focal nature of stricture. Discuss management with surgery - a colonic stent may be possible, but she is at high risk for slippage of stent given distal location and short stricture. Appreciate input from GI, status post colonic stent placed today (3) Pyelonephritis of right kidney: Complicated UTI Patient is status post right-sided percutaneous nephrostomy-secondary to cancer invasion to the right ureter -- Urine cultures: Staph and Streptococcus --Antibiotic changed to Zosyn Change to p.o. Augmentin tomorrow if no further nausea vomiting, able to tolerate p.o. intake (4) Abdominal pain: hx PE/DVT ongoing Lovenox Rx -- presently on heparin drip for possible procedures/Large bowel obstruction from metastatic ca CT abdomen pelvis shows: Possible IVC/right iliac vein thrombus, pelvic and gonadal vein thrombus Patient will need to be on anticoagulation indefinitely right hydronephrosis secondary to retroperitoneal tumor status post nephrostomy tube placement --CT abdomen pelvis shows: Mild to moderate dilatation of the right renal pelvis which has progressed. However, the right ureter is normal in caliber. In addition, the percutaneous nephrostomy tube appears in good position. Urine specimen: Positive for Streptococcus/enterococcus-antibiotic adjusted to IV Zosyn COPD, past tobacco abuse, status at baseline Hypokalemia secondary to diarrheal illness -- resolved Disposition Patient lives at home, independent in her ADLs Expected to be discharged home when medically stable Subjective Status post colonic stent placement by GI today Started to have loose bowel movement, reports of improvement of lower abdominal pain and discomfort after procedure Noted to have nausea vomiting yesterday requiring NG tube placement Started on clears postprocedure, no nausea vomiting noted so far NG tube clamped Plan to discontinue NG tube tomorrow if no further episode of vomiting Physical Exam Constitutional: WD/WN, vitals as above + ill appearing Eyes: PERRL, conjunctivae normal, anicteric sclerae ENMT: external ear and nose normal, oropharynx normal Neck: trachea midline, no thyromegaly Respiratory: normal respiratory effort, lungs clear to auscultation Cardiovascular: RRR, no murmur, no edema Gastrointestinal (Abdomen): Percussion/Palpation: + abdomen tender (Left lower quadrant) and abdomen soft Skin: no rashes, warm and dry Neurologic: PERRL, EOMI, accommodation nl, no face palsy, no dysarthria Psychiatric: A+Ox3, euthymic affect Results & Data Vital Signs (Past 12 Hours) Vital Signs Temp Pulse Pulse Resp BP BP Pulse Ox 10/17/18 18:10 77 16 142/84 H 99 10/17/18 17:10 36.4 C L 71 16 135/83 94 10/17/18 16:16 90 16 145/85 H 95 10/17/18 15:44 74 16 152/90 H 94 10/17/18 14:50 37.3 C 72 16 147/91 H 93 10/17/18 14:40 37.3 C 77 16 149/91 H 94 10/17/18 14:30 36.2 C L 73 20 148/75 H 100 10/17/18 14:20 36.2 C L 76 21 153/96 H 100 10/17/18 14:10 36.2 C L 74 16 160/95 H 100 10/17/18 14:02 36.2 C L 89 18 156/97 H 100 10/17/18 11:57 36.7 C 83 21 162/90 H 95 10/17/18 07:10 36.6 C 73 16 133/70 98 (1) Abdominal pain Abdominal location: left lower quadrant Qualified Code(s): R10.32 - Left lower quadrant pain
[2018-10-17] MEDS: ENOXAPARIN INJ 60 MG/0.6 ML SYR SQ SCH (20:17)
[2018-10-17] MEDS: ALLOPURINOL 300 MG TAB PO SCH (20:18)
[2018-10-18] MEDS: HEPARIN 100 UNIT/ML 5ML FLUSH FLUSH PRN ×5 (03:14→23:15)
[2018-10-18 06:17] LABS: Hematocrit (blood only) 30.7 % (37-47); Hemoglobin 9.7 g/dL (12.0-16.0); Mean Corpuscular Hgb Conc 31.6 g/dL (32-36); Mean Corpuscular Volume 90.8 fL (80-100); Mean Platelet Volume 9.6 fL (7.4-10.4); Platelet Count 358 K/uL (130-400); RDW Coefficient of Variation 18.7 % (11.5-14.5); RDW Standard Deviation 62.4 fL (36.4-46.3); Red Blood Count 3.38 M/uL (4.2-5.4); White Blood Count 4.22 K/uL (4.8-10.8)
[2018-10-18 06:42] LABS: BUN Creatinine Ratio 4.6 (10-20); Calcium 8.1 mg/dl (8.5-10.1); Creatinine Clr Calc Pharmacy 50.1 ml/min; Est GFR (African American) 81.1; Potassium 3.4 mmol/L (3.5-5.1)
[2018-10-18 07:20] LABS: Partial Thromboplastin Ratio 1.1; Partial Thromboplastin Time 29.1 Seconds (21.0-31.0)
--- NOTE | 2018-10-18 07:59 | XRay Report ---
KUB HISTORY: s/p colonic stent placement, reeval colonic disten COMPARISON: KUB 10/17/2018. FINDINGS: Interval placement of a stent at the expected location of the sigmoid colon. Focal narrowin g within the mid aspect of the stent. Mildly dilated gas-filled loops of large and small bowel are no naveed. Nasogastric tube terminates in the proximal stomach. Right-sided percutaneous nephrostomy cathet er is unchanged in position. No renal calculi. No ureteral calculi. No pneumoperitoneum or pneumatos is. IMPRESSION: 1. Interval placement of a stent within the expected location of the sigmoid colon. There is focal na rrowing within the mid aspect of the stent. There are a few mildly dilated gas-filled loops of large and small bowel within the abdomen. 2. Nasogastric tube terminates in the proximal stomach. This could be advanced by approximately 5 to 10 cm. Electronically signed by: Rush Matthews M.D. 10/18/2018 7:58 AM
[2018-10-18] MEDS: ENOXAPARIN INJ 60 MG/0.6 ML SYR SQ SCH ×2 (08:07→20:10)
[2018-10-18] MEDS: PIPERACILLIN/TAZOBACTAM 3.375 GM in DEXTROSE 5% 100 ML IV SCH (08:07)
[2018-10-18] MEDS: PARoxetine HCl 20 MG TAB PO SCH (08:08)
[2018-10-18] MEDS: BUDESONIDE/FORMOTEROL FUMARATE 160/4.5 60 PUFFS/INHALER INH SCH (08:08)
[2018-10-18] MEDS: TIOTROPIUM BROMIDE 5 PUFF/90 MCG INH INH SCH (08:09)
--- NOTE | 2018-10-18 08:38 | Gastroenterology Progress Note ---
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 Recurrence of tumor noted w extension to retroperitoneal area, involving IVC, and surrounding lymph nodes. She presented w lower crampy, abd pain, bloating and BRBPR, soft stools. CT w signs of sigmoid/rectum area thickening w rectosigmoid junction narrowing ? inflammatory/infectious in nature vs underlying lesion. Stool cx and Cdiff negative. Flex sigmoidscopy showed obstructing stricture 10- 12cm, suspected to be malignant in nature. Path pending. Colonic stent placed yesterday. She is symptomatically improved, passing stools. KUB showed mild focal narrowing in mid stent w gas in colon, small bowel - OK to DC NGT - CL diet; will give information for colon stent diet to follow on DC - Continue to monitor Supervising Physician Co-Signing Physician Notes I have performed a history and physical examination of this patient and reviewed the electronic medical record. Specifically, on history the patient had voluminous stools overnight, and on physical examination there is mild distention and no tenderness. I have discussed the case with DEJUAN Pham. The above note reflects my findings, conclusions, and recommendations. Ben Isaacs MD Subjective Pt reports less abd pain and rectal pressure. Does have some suprapubic pressure. She has been putting out liquid stools overnight. Denies n/v. Colonic stent placed yesterday. Kub: 1. Interval placement of a stent within the expected location of the sigmoid colon. There is focal narrowing within the mid aspect of the stent. There are a few mildly dilated gas-filled loops of large and small bowel within the abdomen. 2. Nasogastric tube terminates in the proximal stomach. This could be advanced by approximately 5 to 10 cm. Review of Systems Review of Systems: All systems reviewed & are unremarkable except as noted in HPI & below Physical Exam Constitutional: WD/WN, vitals as above well groomed, cooperative and comfortable Eyes: PERRL, conjunctivae normal, anicteric sclerae ENMT: external ear and nose normal, oropharynx normal Respiratory: normal respiratory effort, lungs clear to auscultation Cardiovascular: RRR, no murmur, no edema Gastrointestinal (Abdomen): Inspection/Auscultation: + abdomen distended (improved from prior days) and normal bowel sounds Percussion/Palpation: abdomen nontender Skin: no rashes, warm and dry no jaundice Psychiatric: A+Ox3, euthymic affect Lymphatic: no lymphedema Results & Data Vital Signs (Past 12 Hours) Vital Signs Temp Pulse Pulse Resp BP BP Pulse Ox 10/18/18 07:44 36.6 C 69 11 L 136/78 95 10/18/18 07:15 36.8 C 68 14 107/65 96 10/18/18 03:04 36.7 C 67 16 100/55 L 97 10/17/18 23:35 36.8 C 67 16 138/81 97
--- NOTE | 2018-10-18 08:41 | Surgery Progress Note ---
Date of Service October 18, 2018 Assessment & Plan (1) Stricture of colon: doing well clinically stent appears to be working would check NGT residuals, if less than 100 cc's would pull NGT and start diet xray improving/no sbo [facility] surgeons covering for weekend if any concerns. Subjective pt feeling better. prior lower abdominal cramping has resolved. multiple bm's overnight no nausea. ngt clamped Physical Exam Physical Exam: alert/oriented. nad abd: soft. mild distension. nt. no g/r/r Results & Data Vital Signs (Past 12 Hours) Vital Signs Temp Pulse Pulse Resp BP BP Pulse Ox 10/18/18 07:44 36.6 C 69 11 L 136/78 95 10/18/18 07:15 36.8 C 68 14 107/65 96 10/18/18 03:04 36.7 C 67 16 100/55 L 97 10/17/18 23:35 36.8 C 67 16 138/81 97 PG Care Time/CCT Total # of Minutes Spent Total Time Spent with Patient: Total time spent is greater than 50% in coordination of care (as documented) at patient's floor/unit and/or counseling patient:
[2018-10-18] MEDS ORDERED: fentaNYL 12 MCG/HR TDSY TD SCH (09:00)
--- NOTE | 2018-10-18 09:18 | Pain Management Progress Note ---
Date of Service October 18, 2018 Assessment & Plan (1) Intractable lower abdominal pain: 1. MS Contin was switched to Fentanyl 12mcg. 2. Keep IV Dilaudid for PRN breakthrough pain. 3. On discharge she does have Oxycodone to take in place of IV Dilaudid for breakthrough pain. 4. She may be a candidate for a superior hypogastric nerve block on an outpatient basis. Subjective Ms. Araujo did receive a colon stent placed yesterday with good results. She has been having bowel movements. She does have an NG tube still in place but nausea has improved since yesterday. She does continue to have lower abdominal pain. She did trial Ms Contin 15mg last night which she states is slightly helpful towards diminishing the pain. She does continue to report 5/10 pain currently. She states that the Ms Contin helps takes the edge off of a little but does not give adequate relief. She did continue to use IV Dilaudid x3 overnight for pain relief. She denies any drowsiness. Pain Assessment Pain Assessment [facility] Combined Pain Scale: 5-Moderate - Cannot perform normal tasks without increase in pain Physical Exam Physical Exam: GENERAL: 63 year old white female. Speech and cognition is intact. Mood and affect is appropriate. In no acute distress. NG tube in place. CHEST: Regular chest respiration and excursion. ABDOMEN: Abdomen distention is slightly improved since yesterday. Tenderness and palpable masses in the lower abdomen. No rebound tenderness or peritoneal signs. NEURO: CN II-XII grossly intact with no focal deficits noted.
[2018-10-18] MEDS: HYDROmorphone INJ 1 MG/ML SYRINGE IV PRN ×4 (11:59→23:15)
[2018-10-18] MEDS: CHECK FENTANYL PATCH PLACEMENT SCH ×2 (16:32→23:24)
[2018-10-18] MEDS: AMOXICILLIN/CLAVULANATE 875 MG TAB PO SCH (17:54)
--- NOTE | 2018-10-18 19:20 | Hospitalist Progress Note ---
Date of Service October 18, 2018 Assessment & Plan (1) Intractable lower abdominal pain: Due to metastatic malignancy, large bowel obstruction secondary to meds, with pelvic and gonadal vein thrombosis Pain relieves with IV Dilaudid Patient will need continued titration of pain medication, as given the presentation of very advanced aggressive malignancy pain control will be very challenging in future Pain management consulted for further input-appreciate input (2) Large bowel obstruction: Status post colonic stent placed by GI Patient continues to have loose bowel movement after procedure, with improvement of lower abdominal pain and discomfort Large bowel obstruction, colonic ulcerative obstruction 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 focal narrowing at the rectosigmoid junction with mild dilatation the colon proximal to this location- concerning for developing large bowel obstruction. 2. The heterogeneous retroperitoneal mass is again noted and similar to the prior study. There is associated thrombus within the IVC and right iliac vein. 3. Progressive retrocrural lymphadenopathy. 4. Trace ascites. There is also suggestion of subtle nodularity along the peritoneal linings as described above. Therefore, this is concerning for developing perineal carcinomatosis. 5. Left gonadal/pelvic pain varicosities. These demonstrate central hypodensity raising the possibility of partial thrombosis. The hypodensity could also be related to spread of tumor. This bears watching on future examinations. Appreciate input from general surgery, and [facility] GI team -Status post flexible sigmoidoscopy October 15, 2018 by GI Impression: Obstructing ulcerated stricture 10-12 cm. suspect that this is secondary to malignancy, rather than radiation, given time course and focal nature of stricture. Discuss management with surgery - a colonic stent may be possible, but she is at high risk for slippage of stent given distal location and short stricture. Appreciate input from GI, status post colonic stent placed on 10/17/2018 (3) Pyelonephritis of right kidney: Complicated UTI Patient is status post right-sided percutaneous nephrostomy-secondary to cancer invasion to the right ureter -- Urine cultures: Staph and Streptococcus Patient continued p.o. Augmentin, complete total 7 (4) Abdominal pain: hx PE/DVT ongoing Lovenox Rx -- presently on heparin drip for possible procedures/Large bowel obstruction from metastatic ca CT abdomen pelvis shows: Possible IVC/right iliac vein thrombus, pelvic and gonadal vein thrombus Patient will need to be on anticoagulation indefinitely right hydronephrosis secondary to retroperitoneal tumor status post nephrostomy tube placement --CT abdomen pelvis shows: Mild to moderate dilatation of the right renal pelvis which has progressed. However, the right ureter is normal in caliber. In addition, the percutaneous nephrostomy tube appears in good position. Urine specimen: Positive for Streptococcus/enterococcus-antibiotic adjusted to IV Zosyn COPD, past tobacco abuse, status at baseline Hypokalemia secondary to diarrheal illness -- resolved Disposition Patient lives at home, independent in her ADLs Expected to be discharged home when medically stable Subjective Status post colonic stent placement by GI Continues to have frequent loose bowel movement, Lower abdominal pain and discomfort had improved somewhat No fever chills Physical Exam Constitutional: WD/WN, vitals as above + ill appearing Eyes: PERRL, conjunctivae normal, anicteric sclerae ENMT: external ear and nose normal, oropharynx normal Neck: trachea midline, no thyromegaly Respiratory: normal respiratory effort, lungs clear to auscultation Cardiovascular: RRR, no murmur, no edema Gastrointestinal (Abdomen): Percussion/Palpation: + abdomen tender (Left lower quadrant) and abdomen soft Skin: no rashes, warm and dry Neurologic: PERRL, EOMI, accommodation nl, no face palsy, no dysarthria Psychiatric: A+Ox3, euthymic affect Results & Data Vital Signs (Past 12 Hours) Vital Signs Temp Pulse Pulse Pulse Resp BP BP 10/18/18 15:12 36.7 C 74 18 138/86 10/18/18 11:49 36.5 C 70 12 147/78 H 10/18/18 07:44 36.6 C 69 11 L 136/78 Pulse Ox 10/18/18 15:12 96 10/18/18 11:49 96 10/18/18 07:44 95 (1) Abdominal pain Abdominal location: left lower quadrant Qualified Code(s): R10.32 - Left lower quadrant pain
[2018-10-18] MEDS: ALLOPURINOL 300 MG TAB PO SCH (20:10)
[2018-10-19] MEDS: HEPARIN 100 UNIT/ML 5ML FLUSH FLUSH PRN ×2 (05:26→21:29)
[2018-10-19 06:42] LABS: Partial Thromboplastin Ratio > 5.1
[2018-10-19 06:44] LABS: Partial Thromboplastin Time > 139.0 Seconds (21.0-31.0)
[2018-10-19 06:45] LABS: BUN Creatinine Ratio 3.3 (10-20); Calcium 8.2 mg/dl (8.5-10.1); Creatinine Clr Calc Pharmacy 60.2 ml/min; Est GFR (African American) 101.3; Est GFR (Non-African American) 87.4; Potassium 3.3 mmol/L (3.5-5.1)
[2018-10-19] MEDS: HYDROmorphone INJ 1 MG/ML SYRINGE IV PRN ×3 (07:13→21:22)
[2018-10-19 07:29] LABS: Partial Thromboplastin Ratio 1.1; Partial Thromboplastin Time 29.7 Seconds (21.0-31.0)
[2018-10-19] MEDS: AMOXICILLIN/CLAVULANATE 875 MG TAB PO SCH ×2 (09:14→18:23)
[2018-10-19] MEDS: CHECK FENTANYL PATCH PLACEMENT SCH ×2 (09:14→20:15)
[2018-10-19] MEDS: BUDESONIDE/FORMOTEROL FUMARATE 160/4.5 60 PUFFS/INHALER INH SCH (09:15)
[2018-10-19] MEDS: ENOXAPARIN INJ 60 MG/0.6 ML SYR SQ SCH ×2 (09:15→20:06)
[2018-10-19] MEDS: PARoxetine HCl 20 MG TAB PO SCH (09:17)
--- NOTE | 2018-10-19 09:21 | Surgery Progress Note ---
Date of Service October 19, 2018 Assessment & Plan (1) Stricture of colon: Pain has resolved Bowels are functioning Consider advancing diet No indication for surgical intervention at this time Present on Admission?: Yes Subjective Status post placement of stent for colonic obstruction secondary to recurrent carcinoid Bowels are moving Pressure that she had as a result of the stricture has seemed to resolve Denies nausea and vomiting Tolerating full liquid diet Physical Exam Gastrointestinal (Abdomen): Inspection/Auscultation: abdomen not distended Percussion/Palpation: abdomen soft; abdomen nontender Results & Data Vital Signs (Past 12 Hours) Vital Signs Temp Pulse Pulse Resp BP Pulse Ox 10/19/18 07:29 36.9 C 73 16 126/70 93 10/18/18 23:27 36.8 C 82 16 129/81 96 Laboratory Results 10/19/18 10/19/18 10/19/18 Range/Units 07:01 05:26 05:26 APTT 29.7 > 139.0 H* (21.0-31.0) Seconds PTT Ratio 1.1 > 5.1 Sodium 141 (136-145) mmol/L Potassium 3.3 L (3.5-5.1) mmol/L Chloride 106 (98-107) mmol/L Carbon Dioxide 29 (21-32) mmol/L Anion Gap 6.0 (3-11) BUN 2 L (7-18) mg/dl Creatinine 0.74 (0.6-1.2) mg/dl Est Cr Clr Drug Dosing 60.2 ml/min Est GFR ( Amer) 101.3 Est GFR (Non-Af Amer) 87.4 BUN/Creatinine Ratio 3.3 L (10-20) Glucose 85 (70-99) mg/dl Calcium 8.2 L (8.5-10.1) mg/dl
--- NOTE | 2018-10-19 09:27 | XRay Report ---
ABDOMEN 2 VIEWS CLINICAL HISTORY: Rectal carcinoma with rectal stent in place. FINDINGS: AP and lateral views of the abdomen are compared to study dated 10/18/2018 and correlated wit h abdominal CT dated 10/13/2018. There is mild gaseous distention of the proximal colon with no evidenc e of high-grade bowel obstruction. Distention of the small bowel loops as improved from yesterday. Ospina ture material projects over the left midabdomen. A rectal stent is unchanged in position from yesterd ay. There is mild narrowing of the mid to distal portions of the stent seen on the lateral view, like ly at the level of the patient's known rectal mass lesion. No evidence of intraperitoneal free air is seen. A right-sided percutaneous nephrostomy tube is unchanged in position. The skeletal structures are osteopenic. Degenerative change and mild scoliosis are noted in the lumbar spine. The lung bases are clear as imaged. IMPRESSION: 1. A rectal stent is unchanged in position from yesterday. 2. There is mild gaseous distention of the proximal colon with no radiographic evidence of high-grade bowel obstruction. 3. Gaseous distention of the small bowel loops has improved from yesterday. 4. No evidence of intraperitoneal free air is seen. Electronically signed by: Willy Chahal M.D. 10/19/2018 9:26 AM
[2018-10-19] MEDS ORDERED: POLYETHYLENE (MIRALAX) 17 GM PACK PO SCH (10:00)
--- NOTE | 2018-10-19 10:01 | Gastroenterology Progress Note ---
Date of Service October 19, 2018 Subjective Pt with mult large vol liqud stools. Her abd pain is improved with titration of narcotics. She is eloy full liquids. On exam, VS stable. She is pleasant and appears comfortable. Her abd is distended, but improved from prior to stent, and dull to percuss. Labs reviewed. 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 Cont full diet for now, adv to low res/mech soft tomorrow. At present, her stool is frequent; however, she may be at high risk for constipation given peritoneal carcinomatosis and narcotic use. I have prescribed Miralax BID to help prevent narcotic induced constipation and stent obstruction. Results & Data Vital Signs (Past 12 Hours) Vital Signs Temp Pulse Pulse Resp BP Pulse Ox 10/19/18 07:29 36.9 C 73 16 126/70 93 10/18/18 23:27 36.8 C 82 16 129/81 96
[2018-10-19] MEDS: TIOTROPIUM BROMIDE 5 PUFF/90 MCG INH INH SCH (10:30)
[2018-10-19] MEDS ORDERED: OXYCODONE HCL IR 5 MG TAB (IMMEDIATE RELEASE) PO PRN (11:42)
[2018-10-19] MEDS ORDERED: fentaNYL 25 MCG/HR TDSY TD SCH (12:00)
[2018-10-19] MEDS ORDERED: LOPERAMIDE HCL 2 MG CAP PO STA (17:46)
[2018-10-19] MEDS ORDERED: LOPERAMIDE HCL 2 MG CAP PO PRN (17:57)
[2018-10-19] MEDS ORDERED: HYDROCORTISONE HC 2.5% CRM 30GM TUBE EXT PRN (17:58)
[2018-10-19] MEDS ORDERED: POTASSIUM CHLORIDE 20 MEQ TABCR PO STA (18:02)
--- NOTE | 2018-10-19 19:35 | Hospitalist Progress Note ---
Date of Service October 19, 2018 Assessment & Plan (1) Intractable lower abdominal pain: Due to metastatic malignancy, large bowel obstruction secondary to meds, with pelvic and gonadal vein thrombosis Getting pain relief with IV Dilaudid, Unable to tolerate fentanyl patch secondary to ongoing nausea, does not believe it is giving her any benefit Will DC fentanyl patch We will try p.o. 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 focal narrowing at the rectosigmoid junction with mild dilatation the colon proximal to this location- concerning for developing large bowel obstruction. 2. The heterogeneous retroperitoneal mass is again noted and similar to the prior study. There is associated thrombus within the IVC and right iliac vein. 3. Progressive retrocrural lymphadenopathy. 4. Trace ascites. There is also suggestion of subtle nodularity along the peritoneal linings as described above. Therefore, this is concerning for developing perineal carcinomatosis. 5. Left gonadal/pelvic pain varicosities. These demonstrate central hypodensity raising the possibility of partial thrombosis. The hypodensity could also be related to spread of tumor. This bears watching on future examinations. 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 suspect that this is secondary to malignancy, rather than radiation, given time course and focal nature of stricture. Discuss management with surgery - a colonic stent may be possible, but she is at high risk for slippage of stent given distal location and short stricture. Appreciate input from GI, status post colonic stent placed on 10/17/2018 Obstruction has relieved, has been having ongoing liquid bowel movement possible secondary to post obstructive diarrhea (3) Pyelonephritis of right kidney: Complicated UTI Patient is status post right-sided percutaneous nephrostomy-secondary to cancer invasion to the right ureter -- Urine cultures: Staph and Streptococcus Patient continued p.o. Augmentin, complete total 7 (4) Abdominal pain: hx PE/DVT ongoing Lovenox Rx -- presently on heparin drip for possible procedures/Large bowel obstruction from metastatic ca CT abdomen pelvis shows: Possible IVC/right iliac vein thrombus, pelvic and gonadal vein thrombus Patient will need to be on anticoagulation indefinitely right hydronephrosis secondary to retroperitoneal tumor status post nephrostomy tube placement --CT abdomen pelvis shows: Mild to moderate dilatation of the right renal pelvis which has progressed. However, the right ureter is normal in caliber. In addition, the percutaneous nephrostomy tube appears in good position. Urine specimen: Positive for Streptococcus/enterococcus-antibiotic adjusted to IV Zosyn COPD, past tobacco abuse, status at baseline Hypokalemia secondary to diarrheal illness -- resolved Disposition Patient lives at home, independent in her ADLs Expected to be discharged home when medically stable Subjective was unable to sleep last night, exhausted, as having small liquid bowel movement every 10-20 minutes Does not think fentanyl patch is helping with her pain other than causing her more nauseous Pain relief with IV Dilaudid only IV fentanyl patch discontinued, Titrated IV Dilaudid MiraLAX discontinued, started on Imodium-plan discussed with GI Physical Exam Constitutional: WD/WN, vitals as above + ill appearing Eyes: PERRL, conjunctivae normal, anicteric sclerae ENMT: external ear and nose normal, oropharynx normal Neck: trachea midline, no thyromegaly Respiratory: normal respiratory effort, lungs clear to auscultation Cardiovascular: RRR, no murmur, no edema Gastrointestinal (Abdomen): Percussion/Palpation: + abdomen tender (Left lower quadrant) and abdomen soft Skin: no rashes, warm and dry Neurologic: PERRL, EOMI, accommodation nl, no face palsy, no dysarthria Psychiatric: A+Ox3, euthymic affect Results & Data Vital Signs (Past 12 Hours) Vital Signs Temp Pulse Resp BP Pulse Ox 10/19/18 15:34 36.4 C L 74 17 164/86 H 96 (1) Abdominal pain Abdominal location: left lower quadrant Qualified Code(s): R10.32 - Left lower quadrant pain
[2018-10-19] MEDS ORDERED: ONDANSETRON INJ 2 MG/ML 2 ML VIAL IV PRN (20:51)
[2018-10-19] MEDS: ALLOPURINOL 300 MG TAB PO SCH ×2 (21:22→21:30)
[2018-10-20] MEDS: HYDROmorphone INJ 1 MG/ML SYRINGE IV PRN ×3 (00:08→07:38)
[2018-10-20] MEDS: HEPARIN 100 UNIT/ML 5ML FLUSH FLUSH PRN ×3 (03:13→17:12)
--- NOTE | 2018-10-20 09:05 | Surgery Progress Note ---
Date of Service October 20, 2018 Assessment & Plan (1) Stricture of colon: Patient continues to bowels with stent is functioning well to relieve stricture Lower abdominal pain has resolved Can advance to low fiber diet Continue ambulation Present on Admission?: Yes Subjective Feeling well today Ambulating Bowels continue to move Tolerating full liquid diet without nausea and vomiting Physical Exam Gastrointestinal (Abdomen): Inspection/Auscultation: abdomen not distended Percussion/Palpation: abdomen soft; abdomen nontender Results & Data Vital Signs (Past 12 Hours) Vital Signs Temp Pulse Resp BP Pulse Ox 10/19/18 23:12 36.8 C 83 14 125/74 92
--- NOTE | 2018-10-20 09:08 | XRay Report ---
XR KUB/Abdomen 1 view CLINICAL HISTORY: 63 years-old Female presenting with check stent placement. TECHNIQUE: Single supine view of the abdomen was obtained. COMPARISON: 10/19/2018. FINDINGS: Right nephrostomy tube in place. Stent in place at the rectosigmoid junction. Nonobstructive bowel ga s pattern. No gross pneumoperitoneum. Anastomotic suture lines project over the left midabdomen. Allowing for bowel gas and stool, no calcifications to suggest nephrolithiasis. Few pelvic phlebolith s noted. Degenerative changes of the spine. Scoliosis. Lung bases clear. IMPRESSION: 1. No significant change in the configuration of the stent of the rectosigmoid junction to suggest m igration. No bowel obstruction. Electronically signed by: Hunter Ochoa M.D. 10/20/2018 9:06 AM
[2018-10-20] MEDS: ENOXAPARIN INJ 60 MG/0.6 ML SYR SQ SCH (09:33)
[2018-10-20] MEDS: BUDESONIDE/FORMOTEROL FUMARATE 160/4.5 60 PUFFS/INHALER INH SCH (09:34)
[2018-10-20] MEDS: TIOTROPIUM BROMIDE 5 PUFF/90 MCG INH INH SCH (09:35)
[2018-10-20] MEDS: AMOXICILLIN/CLAVULANATE 875 MG TAB PO SCH ×2 (09:36→16:03)
[2018-10-20] MEDS: PARoxetine HCl 20 MG TAB PO SCH (09:36)
--- NOTE | 2018-10-20 10:17 | Gastroenterology Progress Note ---
Date of Service October 20, 2018 Subjective Continues to have multiple loose liquid stools throughout the day, vary in volum e; also with frequent tensesmus and urgency. No n/v, eloy PO well. Her pain regimen was changed; she has pain relief with dilaudid. Comfortable, pleasant CV: RRR Resp: CTA Abd: soft NT X ray review - sten remains in place A/P: Colon obstruction from peritoneal carcinomatosis - She continues to have tenesmus and stool frequency, which may be related to stent, or from tumor. She is o/w asymptomatic and ok for d/c home today from my standpoint. Please d/c home on Immoidum one tab qD and Bentyl 10 mg twice daily; she may increase Immodium to twice daily if needed. She is aware of the risk of stent obstruction or migration. She should also remain on low residue diet. Please call with questions. Results & Data Vital Signs (Past 12 Hours) Vital Signs Temp Pulse Resp BP Pulse Ox 10/19/18 23:12 36.8 C 83 14 125/74 92
[2018-10-20 11:10] VITALS: TEMP 97.5; O2SAT 95
[2018-10-20] MEDS ORDERED: DICYCLOMINE HCL 10 MG CAP PO SCH (11:45)
--- NOTE | 2018-10-20 11:45 | Hospitalist Progress Note ---
Date of Service October 20, 2018 Assessment & Plan (1) Intractable lower abdominal pain: Due to metastatic malignancy, large bowel obstruction secondary to metastasis, with pelvic and gonadal vein thrombosis Patient will need continued titration of pain medication, as given the presentation of very advanced aggressive malignancy pain control will be very challenging in future Pain management consulted for further input-appreciate input Patient will continue to follow up with pain management clinic as needed is not Was having good pain control with IV Dilaudid PRN, changed to p.o. as per patient's request for trial Patient will be utilizing p.o. 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 focal narrowing at the rectosigmoid junction with mild dilatation the colon proximal to this location- concerning for developing large bowel obstruction. 2. The heterogeneous retroperitoneal mass is again noted and similar to the prior study. There is associated thrombus within the IVC and right iliac vein. 3. Progressive retrocrural lymphadenopathy. 4. Trace ascites. There is also suggestion of subtle nodularity along the peritoneal linings as described above. Therefore, this is concerning for developing perineal carcinomatosis. 5. Left gonadal/pelvic pain varicosities. These demonstrate central hypodensity raising the possibility of partial thrombosis. The hypodensity could also be related to spread of tumor. This bears watching on future examinations. Appreciate input from general surgery, and [facility] GI team -Status post flexible sigmoidoscopy October 15, 2018 by GI Impression: Obstructing ulcerated stricture 10-12 cm. suspect that this is secondary to malignancy, rather than radiation, given time course and focal nature of stricture. Discuss management with surgery - a colonic stent may be possible, but she is at high risk for slippage of stent given distal location and short stricture. Appreciate input from GI, status post colonic stent placed on 10/17/2018 Obstruction has relieved, has been having ongoing liquid bowel movement possible secondary to post obstructive diarrhea She is asked to utilize as needed Imodium at home for frequent loose bowel movement (3) Pyelonephritis of right kidney: Complicated UTI Patient is status post right-sided percutaneous nephrostomy-secondary to cancer invasion to the right ureter -- Urine cultures: Staph and Streptococcus Patient continued p.o. Augmentin, complete total 7 (4) Abdominal pain: Improved after titration of pain medication, as outlined above hx PE/DVT ongoing Lovenox Rx -- presently on heparin drip for possible procedures/Large bowel obstruction from metastatic ca CT abdomen pelvis shows: Possible IVC/right iliac vein thrombus, pelvic and gonadal vein thrombus Patient will need to be on anticoagulation indefinitely right hydronephrosis secondary to retroperitoneal tumor status post nephrostomy tube placement --CT abdomen pelvis shows: Mild to moderate dilatation of the right renal pelvis which has progressed. However, the right ureter is normal in caliber. In addition, the percutaneous nephrostomy tube appears in good position. Urine specimen: Positive for Streptococcus/enterococcus-antibiotic adjusted to IV Zosyn COPD, past tobacco abuse, status at baseline Hypokalemia secondary to diarrheal illness -- resolved Disposition Patient lives at home, independent in her ADLs Patient is appeared to return back to her baseline functional status, Tolerating diet, abdominal pain has reasonably improved with p.o. meds Plan to discharge home later today Subjective Still having multiple loose bowel movement, but symptom improved after initiation of as needed Imodium/loperamide Diet advanced to low fiber, tolerating well Abdominal pain is better controlled, IV Dilaudid changed to p.o. Will observe for few hours to assess adequate pain control with p.o. meds Plan is to discharge home later today Physical Exam Constitutional: WD/WN, vitals as above + ill appearing Eyes: PERRL, conjunctivae normal, anicteric sclerae ENMT: external ear and nose normal, oropharynx normal Neck: trachea midline, no thyromegaly Respiratory: normal respiratory effort, lungs clear to auscultation Cardiovascular: RRR, no murmur, no edema Gastrointestinal (Abdomen): Percussion/Palpation: + abdomen tender (Left lower quadrant) and abdomen soft Skin: no rashes, warm and dry Neurologic: PERRL, EOMI, accommodation nl, no face palsy, no dysarthria Psychiatric: A+Ox3, euthymic affect Results & Data Vital Signs (Past 12 Hours) Vital Signs Temp Pulse Resp BP Pulse Ox 10/20/18 08:00 36.4 C L 71 16 149/77 H 95 (1) Abdominal pain Abdominal location: left lower quadrant Qualified Code(s): R10.32 - Left lower quadrant pain
[2018-10-20] MEDS: HYDROmorphone HCL 2 MG TAB PO PRN ×2 (13:04→16:02)
[2018-10-20] MEDS ORDERED: HYDROmorphone INJ 1 MG/ML SYRINGE IV PRN (13:54)
[2018-10-20] MEDS ORDERED: MoRPHine SULFATE 10 MG/0.5 ML UDP PO PRN ×2 (13:55→17:00)
[2018-10-20 15:39] VITALS: BP 125/74; PULSE 83
[2018-10-20] MEDS ORDERED: HYDROmorphone INJ 1 MG/ML SYRINGE IV SCH (16:30)
[2018-10-20] MEDS ORDERED: HYDROmorphone HCL 2 MG TAB PO PRN (17:01)
[2018-10-20] MEDS ORDERED: HYDROmorphone HCL 2 MG TAB PO SCH (17:02)
[2018-10-20] MEDS ORDERED: MoRPHine SULFATE 10 MG/0.5 ML UDP PO SCH (17:05)
--- NOTE | 2018-10-21 10:13 | Discharge Summary ---
Date of Service October 21, 2018 Admission HPI Per Admitting Provider History obtained from patient and records. 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 Recent confinement May 2018 for complicated UTI. Patient found to have recurrent neuroendocrine cecal/appendiceal carcinoma last April 2018. Also found to have PE DVT at that time. Therapeutic Lovenox shots eventually initiated outpatient. Nephrostomy tube placed on the right for hydronephrosis. No response to chemotherapy as per records. Patient also completed salvage radiation therapy last month. Last month, patient noted diarrhea symptoms, occasionally bloody. Last night patient noted lower abdominal pain like spasm-like. Persistent loose stools, occasionally bloody. No fever, no chills. Patient denies chest pain. Short of breath due to abdominal pain. At the ER, patient received IV ceftriaxone for possible UTI. Medical History as above Surgical History : Partial colectomy, anastomosis, knee surgery, vascular procedure, oophorectomy, nephrostomy tube placement Family History : Kidney cancer, prostate cancer, breast cancer Personal/Social history : Past tobacco abuse, occasional EtOH intake, retired [employer] Principal Diagnosis LARGE BOWEL OBSTRUCTION /METASTATIC NEUROENDOCRINE TUMOR Discharge Exam Constitutional WD/WN, vitals as above + ill appearing Eyes PERRL, conjunctivae normal, anicteric sclerae ENMT external ear and nose normal, oropharynx normal Neck trachea midline, no thyromegaly Respiratory normal respiratory effort, lungs clear to auscultation Cardiovascular RRR, no murmur, no edema Gastrointestinal (Abdomen) Percussion/Palpation: + abdomen tender (Left lower quadrant) and abdomen soft Skin no rashes, warm and dry Neurologic PERRL, EOMI, accommodation nl, no face palsy, no dysarthria Psychiatric A+Ox3, euthymic affect Discharge Data Allergies Allergy/AdvReac Type Severity Reaction Status Date / Time No Known Allergies Allergy Verified 10/13/18 16:01 Consultations 10/13/18 19:19 ED Decision to Admit Stat 10/13/18 22:09 Consult Gastroenterology Routine Consult General Surgery Routine 10/15/18 19:34 Consult Radiation Oncology Routine 10/16/18 09:25 Consult Pain Management Routine Procedures Performed Operation Date: 10/15/18 09:30 Actual Procedures p Flexible Sigmoidoscopy Biopsy - Irphan E Gaslightwala Operation Date: 10/17/18 12:00 Actual Procedures p Colonoscopy with biopsy and Colonic Stent under Fluoro - Irphan E Gaslightwala Ordered Studies 10/13/18 15:31 CT abd pelvis IV con only Stat 10/17/18 12:00 FL KUB Routine FL fluoroscopy <1hr Routine Hospital Course (1) Intractable lower abdominal pain: Due to metastatic malignancy, large bowel obstruction secondary to metastasis, with pelvic and gonadal vein thrombosis Patient will need continued titration of pain medication, as given the pre sentation of very advanced aggressive malignancy pain control will be very challenging in future Pain management consulted for further input-appreciate input Patient will continue to follow up with pain management clinic as needed is not Was having good pain control with IV Dilaudid PRN, changed to p.o. as per patient's request for trial Patient will be utilizing p.o. 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 focal narrowing at the rectosigmoid junction with mild dilatation the colon proximal to this location- concerning for developing large bowel obstruction. 2. The heterogeneous retroperitoneal mass is again noted and similar to the prior study. There is associated thrombus within the IVC and right iliac vein. 3. Progressive retrocrural lymphadenopathy. 4. Trace ascites. There is also suggestion of subtle nodularity along the peritoneal linings as described above. Therefore, this is concerning for developing perineal carcinomatosis. 5. Left gonadal/pelvic pain varicosities. These demonstrate central hypodensity raising the possibility of partial thrombosis. The hypodensity could also be related to spread of tumor. This bears watching on future examinations. 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 suspect that this is secondary to malignancy, rather than radiation, given time course and focal nature of stricture. Discuss management with surgery - a colonic stent may be possible, but she is at high risk for slippage of stent given distal location and short stricture. Appreciate input from GI, status post colonic stent placed on 10/17/2018 Obstruction has relieved, has been having ongoing liquid bowel movement possible secondary to post obstructive diarrhea She is asked to utilize as needed Imodium at home for frequent loose bowel movement (3) Pyelonephritis of right kidney: Complicated UTI Patient is status post right-sided percutaneous nephrostomy-secondary to cancer invasion to the right ureter -- Urine cultures: Staph and Streptococcus Patient continued p.o. Augmentin, complete total 7 (4) Abdominal pain: Improved after titration of pain medication, as outlined above hx PE/DVT ongoing Lovenox Rx -- presently on heparin drip for possible procedures/Large bowel obstruction from metastatic ca CT abdomen pelvis shows: Possible IVC/right iliac vein thrombus, pelvic and gonadal vein thrombus Patient will need to be on anticoagulation indefinitely right hydronephrosis secondary to retroperitoneal tumor status post nephrostomy tube placement --CT abdomen pelvis shows: Mild to moderate dilatation of the right renal pelvis which has progressed. However, the right ureter is normal in caliber. In addition, the percutaneous nephrostomy tube appears in good position. Urine specimen: Positive for Streptococcus/enterococcus-antibiotic adjusted to IV Zosyn COPD, past tobacco abuse, status at baseline Hypokalemia secondary to diarrheal illness -- resolved Disposition Patient lives at home, independent in her ADLs Patient is appeared to return back to her baseline functional status, Tolerating diet, abdominal pain has reasonably improved with p.o. meds Patient is discharged home today Total Time Total Time Spent Total Time Spent (In Minutes): Approximately 50 minutes Total Time Includes: Examination of the Patient, Discharge Planning, Medication Reconciliation and Communication With Other Providers Discharge Plan Discharge Items Patient Disposition: Home - Self-Care Reason For Visit: COLITIS Discharge Diagnosis: LARGE BOWEL OBSTRUCTION /METASTATIC NEUROENDOCRINE TUMOR Discharge Goals: Decrease discomfort Activity: Resume your previous activity Non-emergency contact: Primary Care Provider Call non-emergency contact if: you have any medication questions Follow-up/Referrals: Zahida Mcgill DO [Primary Care Provider] - 10/24/18 12:45 pm Fermín Chung MD [Surgeon] - (APPOINTMENT IS SCHEDULED ON 10/31/18 ) Diet: Low Fiber Addtl Provider Instructions: NEW MEDICATIONS: 1.FLEXERIL /CYCLOBENAZPRINE 1 TAB THREE TIME DAILY NEEDED FOR MUSCLE SPASM (Cyclobenzaprine (, Flexeril) is a drug prescribed for the short-term relief of muscle spasms associated with acute painful muscle and skeletal conditions.) 2.ZOFRAN 4 MG 1 TAB THREE TIMES NEEDED FOR NAUSEA 3.MORPHINE LIQUID CONCENTRATE: 0.5 ML BY MOUTH EVERY 4 HRS NEEDED FOR PAIN 4.DILAUDID ( HYDROMORPHONE) 2 MG TAB TAKE EVERY 6 HRS NEEDED FOR PAIN NARCOTICS PAIN MEDICATIONS CAN CAUSE CONSTIPATION , -UTILIZE OVER THE COUNTER STOOL SOFTENER ( COLACE/MIRALAX/SENNA/DULCULAX NEEDED FOR CONSTIPATION ) STAY ON LOW FIBER DIET SMALL FREQUENT MEALS CAN UTILIZE EITHER ZOFRAN OR COMPAZINE NEEDED FOR NAUSEA /VOMITING FOLLOW UP WITH DR MCGILL ON 10/24/18 @ 12: 45 PM FOLLOW UP AT THE PAIN CLINIC NEEDED IF YOU PAIN IS NOT CONTROLLED WITH CURRENT REGIMEN OF PAIN MEDS [facility] : [facility] Address: [address] [place] [address] [address], [place] [address] Prescriptions: New morphine concentrate 100 mg/5 mL (20 mg/mL) Solution 0.5 ml PO Q4 PRN (Reason: PAIN) Qty: 30 RF: 0 ondansetron HCl [Zofran] 4 mg tablet 4 mg PO Q8H PRN (Reason: nausea and vomiting) 30 Days Qty: 90 RF: 3 cyclobenzaprine 10 mg tablet 10 mg PO TID PRN (Reason: muscle spasm) Qty: 90 RF: 3 hydromorphone [Dilaudid] 4 mg tablet 4 mg PO Q6H PRN (Reason: pain) Qty: 60 RF: 0 Continued diphenoxylate-atropine [Lomotil] 2.5-0.025 mg tablet 1 tab PO Q6H PRN (Reason: diarrhea) Qty: 60 RF: 2 paroxetine HCl 20 mg tablet 30 mg PO QAM RF: 0 albuterol sulfate [ProAir HFA] 90 mcg/actuation Hfa Aerosol Inhaler 2 puff INHALATION Q6H PRN (Reason: Shortness Of Breath Or Wheezing) RF: 0 prochlorperazine maleate 10 mg tablet 10 mg PO Q6H PRN (Reason: Nausea) RF: 0 allopurinol 300 mg tablet 300 mg PO HS RF: 0 Symbicort 160-4.5 mcg/actuation Hfa Aerosol Inhaler 2 puff INHALATION DAILY RF: 0 Spiriva Respimat 2.5 mcg/actuation Mist 2 puff INHALATION DAILY RF: 0 simethicone [Gas Relief] 80 mg Tablet,Chewable 80 mg PO DIRECTED PRN (Reason: FOR GAS RELIEF) RF: 0 enoxaparin 60 mg/0.6 mL Syringe 55 mg SUBCUT Q12H RF: 0 lorazepam 0.5 mg tablet 0.5 mg PO BID PRN (Reason: Anxiety) Qty: 20 RF: 0 morphine 15 mg tablet extended release 15 mg PO Q12H PRN (Reason: pain) Qty: 10 RF: 0 oxycodone 5 mg tablet 5 mg PO Q4H PRN (Reason: pain) Qty: 20 RF: 0 Stand-Alone Forms: [facility] [employer] [facility]/Other Patient Handouts: Diet Low Residue Discharge Orders: Discharge Order (Routine); Ordered 10/20/18 Ordered By: Barbara Almaraz Admission Data Admit Date/Time: 10/13/18 20:26 Attending Provider: Barbara Almaraz Admit Provider: Bryant Crawley Primary Care Provider: Zahida Mcgill Other Providers: Oli Doyle ; Bryant Crawley ; David Anton ; Darren Villalba ; Malissa Julio ; Medardo Honeycutt ; Shayan Henderson ; Sathish Rivero ; Chery Tee ; Ben Isaacs ; Aneesh Post ; Deyanira Chu ; Iesha Quinones ; Juanita Law ; Loan Correa ; Senia Woodward ; Sarah Kaufman ; Whitney Chung ; Artemio Pearce Service: Medical Other Interventions: Discharge Summary Assessment (RN) Last Done: 10/20/18 15:34 DC Date/Time DO NOT enter until pt leaves facility: 10/20/18 17:32
== END 2018-10-20 17:32 | disposition home or self-care (01) | DRG 843 ==
LOC: ED 15:05 → 3W 20:26 → SUATTDRO 20:26 → 3W 21:37

== ENCOUNTER 2018-12-28 02:40 | Inpatient (IN) ==
[2018-12-28 04:12] LABS: Basophils # (auto) 0.02 K/uL (0-0.2); Basophils % (auto) 0.3 %; Eosinophils # (auto) 0.11 K/uL (0-0.5); Eosinophils % (auto) 1.5 %; Hematocrit (blood only) 35.5 % (37-47); Hemoglobin 11.4 g/dL (12.0-16.0); Immature Granulocytes # (auto) 0.01 K/uL (0.00-0.02); Immature Granulocytes % (auto) 0.1 %; Lymphocytes # (auto) 0.58 K/uL (1.2-3.4); Lymphocytes % (auto) 7.7 %; Mean Corpuscular Hemoglobin 28.7 pg (25-34); Mean Corpuscular Hgb Conc 32.1 g/dL (32-36); Mean Corpuscular Volume 89.4 fL (80-100); Mean Platelet Volume 9.5 fL (7.4-10.4); Monocytes # (auto) 0.82 K/uL (0.11-0.59); Monocytes % (auto) 10.9 %; Neutrophils # (auto) 5.95 K/uL (1.4-6.5); Neutrophils % (auto) 79.5 %; Platelet Count 525 K/uL (130-400); RDW Standard Deviation 52.1 fL (36.4-46.3); Red Blood Count 3.97 M/uL (4.2-5.4); White Blood Count 7.49 K/uL (4.8-10.8)
[2018-12-28] MEDS: HYDROmorphone INJ 0.5 MG/0.5 ML SYR IV PRN ×7 (04:17→21:49)
[2018-12-28 04:20] LABS: Calcium 8.6 mg/dl (8.5-10.1); Creatinine Clr Calc Pharmacy 55.7 ml/min; Est GFR (African American) 99.7; Magnesium 1.9 mg/dl (1.8-2.4); Potassium 2.8 mmol/L (3.5-5.1)
[2018-12-28 04:23] LABS: Albumin Globulin Ratio 0.9 (0.9-2); Bilirubin,Total 0.5 mg/dl (0.2-1); Globulin 3.5 gm/dl (2.5-4.0); Total Protein 6.5 gm/dl (6.4-8.2)
[2018-12-28] MEDS ORDERED: POTASSIUM CHLORIDE 20 MEQ TABCR PO STA ×2 (05:18→09:26)
[2018-12-28 07:25] LABS: Appearance Urine Clear (Clear); Blood Urine Negative (Negative); Color Urine Yellow; Glucose Urine UA Negative (Negative); Leukocyte Esterase Urine Negative (Negative); Nitrite Urine Negative (Negative); Protein Urine Trace (Negative); Urobilinogen Urine Negative (Negative); pH Urine 5.5 (4.5-7.5)
[2018-12-28 07:27] LABS: Ketones Urine 3+ (Negative)
[2018-12-28 07:28] LABS: Bilirubin Urine Negative (Negative); Ictotest Urine Negative (Negative)
[2018-12-28 07:40] LABS: Bacteria Urine 1+ (Negative); RBC Urine 0-4 /hpf (0-4)
--- NOTE | 2018-12-28 09:13 | Emergency Department Note ---
Entered by Marla Melgar acting as a scribe for Palak Myers DO History of Present Illness General Chief complaint: Pain (Generalized) Stated complaint: PAIN (CANCER) Time Seen by Provider: 12/28/18 03:28 Source: patient History of Present Illness Onset (ago): day(s) 3 Location: left (left-sided pain) Pain Consistency: + other (worsening) Maximum Pain Intensity: 9 Relieved By: + none Associated symptoms: + nausea/vomiting (vomiting) and + other (diarrhea); no fever/chills The patient is a 63 year old F who presents to the Emergency Room with complaints of worsening generalized pain that started 3 days ago. The patient states that she has cancer of her abdomen, pelvis, kidneys and lungs. She notes that her oncologist is Dr. Chung. She adds that Dr. Chung scanned her and told her that her cancer was spreading. She notes that she is currently experiencing left-sided pain, vomiting, and diarrhea. She states that she is trying to eat and stay hydrated but has not been able to keep anything down. She notes that she has not urinated since 12 hours ago. She adds that she has been losing weight due to her vomiting and radiation treatment. She states that blood has appeared in her stool, starting 2 days ago. She adds that she has a nephrostomy bag on the right-side of her body. Patient states she finished radiation proximal month ago. Patient states her port has been functioning well. Patient denies any sick contacts or medication changes. She denies experiencing a fever. She notes that Dr. Chung referred her to [facility] for additional evaluation. She adds that her appointment is next Sunday. She notes that she also has a blood clot in her groin area and is getting Lovenox shots for it. Home Medications Home Medications Medication Instructions Recorded Confirmed Type albuterol sulfate [ProAir HFA] 2 puff INHALATION Q6H PRN 04/24/18 12/28/18 History paroxetine HCl 30 mg PO QAM 04/24/18 12/28/18 History Symbicort 1 puff INHALATION QAM 05/25/18 12/28/18 History allopurinol 300 mg PO HS 05/25/18 12/28/18 History enoxaparin 55 mg SUBCUT Q12H 10/13/18 12/28/18 History simethicone [Gas Relief] 80 mg PO DIRECTED PRN 10/13/18 12/28/18 History cyclobenzaprine 10 mg PO TID PRN #90 tab 10/20/18 12/28/18 Rx morphine concentrate 0.5 ml PO Q4 PRN #30 ml 10/20/18 12/28/18 Rx lorazepam 0.5 mg PO BID PRN 11/04/18 12/28/18 History tiotropium bromide 2.5 2 puff INHALATION DAILY #4 gm 12/13/18 12/28/18 Rx mcg/actuation mist for inhalation morphine 15 mg PO Q12H 12/28/18 12/28/18 History Allergies Allergy/AdvReac Type Severity Reaction Status Date / Time No Known Allergies Allergy Verified 12/28/18 05:47 Past Med/Surg History Social History Preferred Language: Bengali Communication Ability: Effective Bindery Operator Required: No Beliefs That Will Affect Care: None marital status: Current Living Situation: Spouse Feels Safe at Home: Yes Safety Concerns: Feels Safe At This Time Smoking Status: Former smoker Tobacco Type: cigarettes ; Smoking End Date: 1999 ; Second Hand Exposure: Yes ; Tobacco Cessation Education Requested by Patient: No Hx Alcohol Use: Yes Alcohol type: beer Hx Substance Use: No Review of Systems See HPI for pertinent positives & negatives. and A total of 10 systems reviewed and were otherwise negative Physical Exam Vital Signs Vital Signs - 24 hr 12/28/18 02:45 12/28/18 04:40 12/28/18 06:00 Temperature 36.7 C Temperature Source Oral Sepsis Recent Fever Within 48 Hours No Sepsis New/Unexplained Change in Mental Status No Sepsis Action Taken by Nursing No Action Required Pulse Rate 89 Pulse Rate [Finger] 68 62 Respiratory Rate 18 18 18 Blood Pressure 138/87 Blood Pressure [Right Arm] 136/78 129/81 Blood Pressure Mean 104 Blood Pressure Mean [Right Arm] 97 97 Pulse Oximetry 100 94 94 Oxygen Delivery Method Room Air Room Air Room Air GENERAL: cachectic, ill-appearing, port noted on right superior chest wall EYE EXAM: normal conjunctiva, PERRL and EOM's grossly intact OROPHARYNX: no exudate, no erythema, lips, buccal mucosa, and tongue normal and mucous membranes are moist NECK: supple, no nuchal rigidity, no adenopathy, non-tender LUNGS: Clear to auscultation. Normal chest wall mechanics, no w/r/r HEART: no murmurs, S1 normal and S2 normal ABDOMEN: abdomen soft, mild pain with palpation over left lateral abdomen and left flank, normo-active bowel sounds, no masses, no rebound or guarding. Right flank nephrostomy tube noted, no drainage from site. BACK: Back is symmetrical on inspection and there is no deformity, no midline tenderness, no CVA tenderness. SKIN: no rashes and no bruising UPPER EXTREMITIES: upper extremities are grossly normal. FROM, nml pulses b/l. LOWER EXTREMITIES: No pitting edema. FROM, nml pulses b/l. NEURO EXAM: Normal sensorium, cranial nerves II-XII grossly intact, normal speech, no gross weakness of arms, no gross weakness of legs. Course 0355: The patient was evaluated in room C9. A complete history and physical exam was performed. 1604: I reviewed the patient's scan from December 24. 1809: The patient received multiple rounds of pain medications. While patient's pain is improved, I am concerned about the ability to control her pain at home despite her usual medications in addition to recurrent nausea vomiting. 1817: I reviewed the patient's [facility] He will evaluate the patient for further management. Consultations Consultation #1: I reviewed the patient's case with [facility] He will evaluate the patient for further management. Time: 18:18 Administered Medications Hydromorphone HCl (Dilaudid) 0.5 mg IV Q15M PRN PRN Reason: Pain Stop: 01/11/19 04:02 Last Admin: 12/28/18 07:54 Dose: 0.5 mg Documented by: [id number] Admin: 12/28/18 05:42 Dose: 0.5 mg Documented by: [id number] Admin: 12/28/18 04:58 Dose: 0.5 mg Documented by: [id number] Admin: 12/28/18 04:17 Dose: 0.5 mg Documented by: [id number] Discontinued Medications Potassium Chloride (Klor-Con M20) 40 meq PO NOW STA Stop: 12/28/18 05:19 Last Admin: 12/28/18 05:42 Dose: 40 meq Documented by: [id number] Medical Decision Making Differential Diagnosis Differential diagnoses includes but is not limited to gastritis, peptic ulcer disease, GERD, gallbladder disease, pancreatitis, small bowel obstruction, acute coronary syndrome, pericarditis, ischemic bowel, irritable bowel disease, irritable bowel syndrome, appendicitis, diverticulitis, malignancy, hernia, urinary tract infection, torsion, perforation, trauma, infectious. Medical Records Attestation: I reviewed the patient's medical records. Home Medications Current Medication List: was personally reviewed by me Laboratory Data Attestation: I reviewed the patient's lab results. Result diagrams: 12/28/18 03:50 12/28/18 03:50 Lab Results 12/28/18 12/28/18 Range/Units 03:50 03:50 WBC 7.49 (4.8-10.8) K/uL RBC 3.97 L (4.2-5.4) M/uL Hgb 11.4 L (12.0-16.0) g/dL Hct 35.5 L (37-47) % MCV 89.4 (80-100) fL MCH 28.7 (25-34) pg MCHC 32.1 (32-36) g/dL RDW Std Deviation 52.1 H (36.4-46.3) fL RDW Coeff of Ysabel 16.0 H (11.5-14.5) % Plt Count 525 H (130-400) K/uL MPV 9.5 (7.4-10.4) fL Immature Gran % (Auto) 0.1 % Neut % (Auto) 79.5 % Lymph % (Auto) 7.7 % [place] % (Auto) 10.9 % Eos % (Auto) 1.5 % Baso % (Auto) 0.3 % Immature Gran # (Auto) 0.01 (0.00-0.02) K/uL Neut # (Auto) 5.95 (1.4-6.5) K/uL Lymph # (Auto) 0.58 L (1.2-3.4) K/uL [place] # (Auto) 0.82 H (0.11-0.59) K/uL Eos # (Auto) 0.11 (0-0.5) K/uL Baso # (Auto) 0.02 (0-0.2) K/uL Sodium 132 L (136-145) mmol/L Potassium 2.8 L (3.5-5.1) mmol/L Chloride 92 L (98-107) mmol/L Carbon Dioxide 30 (21-32) mmol/L Anion Gap 10.0 (3-11) BUN 13 (7-18) mg/dl Creatinine 0.75 (0.6-1.2) mg/dl Est Cr Clr Drug Dosing 55.7 ml/min Est GFR ( Amer) 99.7 Est GFR (Non-Af Amer) 86.0 BUN/Creatinine Ratio 17.0 (10-20) Glucose 92 (70-99) mg/dl Calcium 8.6 (8.5-10.1) mg/dl Magnesium 1.9 (1.8-2.4) mg/dl Total Bilirubin 0.5 (0.2-1) mg/dl AST 22 (15-37) U/L ALT 21 (12-78) U/L Alkaline Phosphatase 225 H (45-117) U/L Total Protein 6.5 (6.4-8.2) gm/dl Albumin 3.0 L (3.4-5.0) gm/dl Globulin 3.5 (2.5-4.0) gm/dl Albumin/Globulin Ratio 0.9 (0.9-2) Lipase 21 L (73-393) U/L Blood Pressure Blood Pressure Findings: Elevated blood pressure Blood Pressure Disposition: further management by hospitalist JACINTO Narrative Patient here presenting with worsening abdominal pain and known significant metastatic colon cancer. Patient found to have hypokalemia likely secondary to poor into intake as well as intermittent diarrhea. This was repleted orally. Patient had a CT performed on Sunday. I do not feel patient required repeat imaging due to this recent scan. Patient's labs otherwise reassuring, patient afebrile. Patient received 3 doses of IV Dilaudid in the emergency room and did have improvement of pain, although I am concerned about ongoing pain management, GI symptoms, and weight loss. Discussed with patient options and she was in agreement with plan for additional inpatient monitoring and treatment. Case discussed with hospitalist. I do not suspect occult infectious etiology at this time, bowel obstruction, or mesenteric ischemia. No evidence of perforation or GI bleed. Patient states she has had intermittent bleeding from her bowel movements suspected to be due to her Lovenox injections for her known thrombus. UA pending at the time of discussion with the hospitalist. Impression & Plan Intractable pain, Metastatic colon cancer in female, Hypokalemia, Vomiting, Weight loss Discharge Plan Visit Data *Final* Discharge Date/Time: 12/28/18 08:24 Chief Complaint: Pain (Generalized) Stated Complaint: PAIN (CANCER) ED Provider: Palak Myers Discharge Problem: Intractable pain, Metastatic colon cancer in female, Hypokalemia, Vomiting, Weight loss Patient Disposition: Admitted As Inpatient Discharge Instructions Interventions: ED Discharge Assessment Last Done: 12/28/18 08:24 Discharge Problem: Vomiting Qualifiers: Vomiting type: unspecified Vomiting Intractability: non-intractable Nausea presence: with nausea Qualified Code(s): R11.2 - Nausea with vomiting, unspecified The scribe's documentation has been prepared under my direction and personally reviewed by me in its entirety. I confirm that the note above accurately r eflects all work, treatment, procedures, and medical decision making performed by me.
[2018-12-28] MEDS ORDERED: CYCLOBENZAPRINE HCL 10 MG TAB PO PRN (09:26)
[2018-12-28] MEDS ORDERED: SIMETHICONE 80 MG CHEW PO PRN (09:26)
[2018-12-28] MEDS ORDERED: LORazepam 0.5 MG TAB PO PRN (09:26)
[2018-12-28] MEDS ORDERED: ACETAMINOPHEN 325 MG TAB PO PRN (09:26)
--- NOTE | 2018-12-28 09:43 | History and Physical Report ---
DATE OF ADMISSION: 12/28/2018 CHIEF COMPLAINT: Severe abdominal pain. HISTORY OF PRESENT ILLNESS: This is a 63-year-old female with past medical history significant for recurrent neuroendocrine cecal appendiceal carcinoma, status post surgery and chemoradiation, PE/DVT - on Lovenox treatment, right hydronephrosis, status post nephrostomy tube placement, COPD, history of chronic anemia with baseline hemoglobin of 9-10, history of UTI. The patient was in the hospital in October with large bowel obstruction with colonic ulcer . 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 Then, she developed diarrhea. She is on Imodium p.r.n. She also is status post right hemicolectomy. Currently, she is on vectibix treatment every 2 weeks. She recently on 12/23/2018 had a CAT scan of the abdomen and pelvis and also chest CT, which showed progression of the disease and as per the patient, she has an appointment at [facility] this coming week for further plan of care.Today she comes to the ER because of severe lower abdominal pain, and her last bowel movement was yesterday in the afternoon, it was more of formed stools and she also has less urine output in her nephrostomy bag and she did not micturate by herself and she also had nausea, vomiting, . She has on and off blood in the stools, on and off blood in the nephrostomy bag and her heme/oncologist was checking the Lovenox level to adjust the Lovenox dose, the result is supposed to come today. The patient has some mild headache, no dizziness, no blurred visions. Has some mild ear irritation, no sore throat, no difficulty swallowing. Appetite is okay, but lost significant weight since her radiation treatments. Denies any chest pain. She gets some shortness of breath says because she is weak. No cough, no fever. Feeling cold. No swelling in the legs. Has some mild macular rash on extremities and some itchiness thinks from the medications. ALLERGIES: No known drug allergies. PAST MEDICAL HISTORY: As mentioned above. PAST SURGICAL HISTORY: Colonoscopy, colposcopy, insertion of a tunneled catheter, arthroscopy of the knee, partial colectomy with anastomosis, right side removal of the ovary and cyst status post exploratory laparotomy, underwent ileal small bowel to transverse colon side to side anastomosis. MEDICATIONS: The patient is on albuterol 2 puffs every 6 hours p.r.n., allopurinol 300 mg p.o. at bedtime, cyclobenzaprine 10 mg p.o. t.i.d. p.r.n., Lovenox 55 mg subcutaneously q.12 hours, Ativan 0.5 mg p.o. b.i.d. p.r.n., morphine 50 mg p.o. q.12 hours, morphine concentrate 0.5 mL p.o. q.6 hours p.r.n., paroxetine 30 mg p.o. in a.m., simethicone 80 mg as directed, Symbicort 1 puff inhalation in a.m., Spiriva 2 puffs inhalation daily. FAMILY HISTORY: Significant for father had prostate cancer. Mother had breast cancer. Aunt on father's side has kidney cancer. Brother has prostate cancer. SOCIAL HISTORY: , lives with her . Former smoker, quit in 1999. Alcohol, occasional beer. No drug use. REVIEW OF SYMPTOMS: As per HPI. Rest of review of symptoms negative. PHYSICAL EXAMINATION: GENERAL: The patient is weak and frail, not in acute distress. VITAL SIGNS: Temperature 36.7, pulse 62, respiratory rate 18, blood pressure 129/81, oxygen 94% on room air. HEENT: No pallor, no icterus. Pupils equal, round, reactive to light. Ears; mild erythema seen on the right eardrum. NECK: No JVD, no neck masses, no carotid bruits. CARDIOVASCULAR: S1, S2 heard, regular rate and rhythm, no murmur, no gallop. RESPIRATORY SYSTEM: Normal AP diameter. No thyromegaly. No wheezing, no crackles. ABDOMEN: Soft, bowel sounds very sluggish, mild discomfort. No guarding, no rigidity. No distention. CENTRAL NERVOUS SYSTEM: Cranial nerves II-XII grossly intact. Nonfocal. EXTREMITIES: No edema, no erythema. LABORATORY DATA: WBC 7.4, hemoglobin 11.4, hematocrit 33.5, platelets 525. Sodium 132, potassium 2.8, chloride 92, CO2 of 30, BUN 13, creatinine 0.75, serum glucose 92, calcium 8.6, magnesium 1.9, total bilirubin 0.5, AST 22, ALT 21, alkaline phosphatase 225, lipase 21. ASSESSMENT AND PLAN: This is a 63-year-old female with metastatic recurrent neuroendocrine tumor, presents with severe abdominal pain. 1. Severe abdominal pain. The patient has history of high-grade recurrent neuroendocrine carcinoma, recent CAT scan showed progression of disease. She has an appointment in [facility] coming week and she has history of colonic obstruction in October when a colonic stent was placed. We will do another CAT scan. We will keep her on clear liquid diet for now. Continue her home pain medication, place her on IV Dilaudid p.r.n. Based on CAT scan results, further management, may need to consult pain management. 2. History of pulmonary embolism and deep venous thrombosis, also possible IVC/Right iliac vein thrombosis , on Lovenox shots. Follow the Lovenox level done as an outpatient to adjust the Lovenox dose. 3. History of chronic obstructive pulmonary disease. Continue home inhalers. 4. Hypokalemia, possibly from diarrhea and also from her nausea and vomiting today. We will replace and follow the laboratories. 5. Recurrent neuroendocrine carcinoma, status post exploratory laparotomy, status post ileal small bowel to transverse colon [id number] anastomosis on 08/08/2016, status post neoadjuvant modified FOLFOX 6 chemotherapy, status post right hemicolectomy on 03/23/2017 and currently she is on Vectibix treatment every 2 weeks, recent CAT scan showing progression of disease and there is a plan to see in [facility]. We will follow up the CT scan of the abdomen and pelvis ordered today.Will consider heme/onco consult. 6. History of diarrhea, on Lomotil p.r.n. Yesterday, she had formed stools. 7. History of thrombocytosis, currently hydroxyurea on hold. 8. Otitis media? will give ear drops. 9. Deep venous thrombosis prophylaxis, on Lovenox. DISPOSITION: Admit to medical floor. Expect discharge home and follow with her family doctor and heme-oncology. CODE STATUS: Full code as per my discussion with the patient. MTDD
[2018-12-28] MEDS: SODIUM CHLORIDE 0.9% 1000ML 1,000 ML IV SCH ×2 (10:30→20:43)
--- NOTE | 2018-12-28 11:12 | CT Scan Report ---
CT abd pelvis wo con CT DOSE: 217.69 mGy.cm HISTORY: Pain abdominal pain, hx of neuroendocrine cancer TECHNIQUE: Multiaxial CT images of the abdomen and pelvis were performed without contrast. A dose lo wering technique was utilized adhering to the principles of ALARA. COMPARISON STUDY: 12/23/2018 FINDINGS: Similar examination compared to the prior study. Slight basilar nodularity unaltered. Metas tatic liver lesions similar within limitations of an unenhanced scan. Trace amount of perihepatic asc ites. Mild increase in gastric distention. Potential carcinomatosis is again noted and is similar. Rectosigmoid stent unchanged in position. Soft tissue narrowing of the proximal aspect of the stent w ith mild distention of the bowel proximal to this level. Moderate increase in colonic fecal load compared to prior study. Kidneys negative for hydronephrosis. IMPRESSION: 1. Similar study compared to the prior exam. 2. Mild increase in gastric distention as well as mild increase in colonic fecal load. 3. Soft tissue at the proximal aspect of the rectosigmoid stent, similar to and are slightly progress linden compared to the prior study. 4. This is creating early evidence for colonic distention/partial obstructive change.. 5. Probable early carcinomatosis unchanged. The above report was generated using voice recognition software. It may contain grammatical, syntax or spelling errors. Electronically signed by: David Bass M.D. 12/28/2018 11:10 AM
[2018-12-28] MEDS ORDERED: ALBUTEROL HFA 8 GM INHALER INH PRN (11:15)
[2018-12-28] MEDS: ONDANSETRON INJ 2 MG/ML 2 ML VIAL IV PRN (11:16)
[2018-12-28] MEDS: PARoxetine HCl 20 MG TAB PO SCH (11:19)
[2018-12-28] MEDS: MoRPHine SULFATE CR 15 MG TABCR PO SCH ×2 (11:19→21:49)
[2018-12-28] MEDS: TIOTROPIUM BROMIDE 5 PUFF/90 MCG INH INH SCH (11:20)
[2018-12-28] MEDS: BUDESONIDE/FORMOTEROL FUMARATE 160/4.5 60 PUFFS/INHALER INH SCH (11:20)
[2018-12-28] MEDS: ENOXAPARIN INJ 40 MG/0.4 ML SYR SQ SCH (14:15)
--- NOTE | 2018-12-28 15:55 | Hospitalist Progress Note ---
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 Chung Recent CT abdomen and pelvis/CT chest shows progression of disease Admitted yesterday with abdominal pain nausea vomiting ongoing diarrhea CT abdomen pelvis: Shows no evidence of bowel obstruction/abdominal carcinomatosis Started on clear liquid diet, tolerating well Patient is scheduled to have follow-up with hematology oncology at [facility] next 01/01/2019 Will have copy of medical records including latest CT scan and CD copy prior to discharge for continuation of care Patient's overall prognosis remains extremely poor Poor p.o. intake/dehydration Secondary to metastatic malignancy Symptom improved with IV fluids, Which will be continued Very poor prognosis Severe protein calorie malnutrition Significant weight loss, BMI 17 secondary to widespread metastatic malignancy recent bowel obstruction, ongoing secondary diarrhea secondary to neuroendocrine tumor Very poor prognosis Nutrition consult requested for diet supplement Hypokalemia Secondary to ongoing GI loss For displacement, repeat labs in a.m. History of DVT/PE with ongoing Lovenox treatment Lovenox therapeutic dose continued Due to significant weight loss, does will be adjusted based on factor X a level Appreciate input from pharmacy Disposition: Plan to discharge home on Sunday, as patient has scheduled follow-up with hematology oncology department in [facility] on 01/01/2019 Subjective Denies of any abdominal pain or discomfort, diarrhea/loose motion has improved Tolerating clear liquid diet well, Does not want to advance diet Not had any nausea vomiting since admission Feels much better after starting with IV fluids No dizzy spell or lightheadedness, no fever chills Physical Exam 2 Constitutional: + thin and + cachectic; no acute distress Eyes: + anicteric sclerae ENMT: external ear and nose normal, oropharynx normal Neck: trachea midline, no thyromegaly Respiratory: normal respiratory effort, lungs clear to auscultation Cardiovascular: RRR, no murmur, no edema Gastrointestinal (Abdomen): Percussion/Palpation: abdomen soft; abdomen nontender Musculoskeletal: no cyanosis or clubbing, extremities motor strength 5/5 Skin: no rashes, warm and dry Neurologic: PERRL, EOMI, accommodation nl, no face palsy, no dysarthria Psychiatric: A+Ox3, euthymic affect Results & Data Vital Signs (Past 12 Hours) Vital Signs Temp Pulse Resp BP BP Pulse Ox 12/28/18 14:59 36.3 C L 63 18 130/77 99 12/28/18 08:45 36.3 C L 75 18 136/86 100 12/28/18 08:15 71 16 123/73 96 12/28/18 07:55 78 16 141/80 H 98 12/28/18 07:22 68 18 150/88 H 100 12/28/18 06:00 62 18 129/81 94 12/28/18 04:40 68 18 136/78 94
[2018-12-28] MEDS: MoRPHine SULFATE 10 MG/0.5 ML UDP PO PRN (20:01)
[2018-12-28] MEDS: allopurinoL 300 MG TAB PO SCH (20:43)
[2018-12-28] MEDS ORDERED: HYDROmorphone INJ 0.5 MG/0.5 ML SYR IV STA (22:54)
[2018-12-28] MEDS ORDERED: HEPARIN 100 UNIT/ML 5ML FLUSH FLUSH PRN (23:50)
[2018-12-29] MEDS: ENOXAPARIN INJ 40 MG/0.4 ML SYR SQ SCH ×2 (05:18→17:51)
[2018-12-29 05:55] LABS: Basophils # (auto) 0.01 K/uL (0-0.2); Basophils % (auto) 0.2 %; Eosinophils # (auto) 0.08 K/uL (0-0.5); Eosinophils % (auto) 1.3 %; Hematocrit (blood only) 30.7 % (37-47); Hemoglobin 9.8 g/dL (12.0-16.0); Immature Granulocytes # (auto) 0.01 K/uL (0.00-0.02); Immature Granulocytes % (auto) 0.2 %; Lymphocytes # (auto) 0.51 K/uL (1.2-3.4); Lymphocytes % (auto) 8.2 %; Mean Corpuscular Hemoglobin 28.7 pg (25-34); Mean Corpuscular Hgb Conc 31.9 g/dL (32-36); Monocytes # (auto) 0.72 K/uL (0.11-0.59); Monocytes % (auto) 11.6 %; Neutrophils # (auto) 4.87 K/uL (1.4-6.5); Neutrophils % (auto) 78.5 %; Platelet Count 465 K/uL (130-400); RDW Coefficient of Variation 15.9 % (11.5-14.5); RDW Standard Deviation 52.9 fL (36.4-46.3); Red Blood Count 3.41 M/uL (4.2-5.4)
[2018-12-29 06:43] LABS: BUN Creatinine Ratio 15.6 (10-20); Calcium 7.6 mg/dl (8.5-10.1); Creatinine Clr Calc Pharmacy 64.5 ml/min; Est GFR (African American) 114.7; Est GFR (Non-African American) 98.9; Magnesium 1.8 mg/dl (1.8-2.4); Potassium 3.3 mmol/L (3.5-5.1)
[2018-12-29] MEDS: SODIUM CHLORIDE 0.9% 1000ML 1,000 ML IV SCH (06:48)
[2018-12-29] MEDS: ONDANSETRON INJ 2 MG/ML 2 ML VIAL IV PRN ×3 (08:36→22:52)
[2018-12-29] MEDS: HYDROmorphone INJ 0.5 MG/0.5 ML SYR IV PRN ×2 (08:38→20:30)
[2018-12-29] MEDS: PARoxetine HCl 20 MG TAB PO SCH (08:42)
[2018-12-29] MEDS ORDERED: POTASSIUM CHLORIDE 20 MEQ TABCR PO STA (08:42)
[2018-12-29] MEDS: MoRPHine SULFATE CR 15 MG TABCR PO SCH ×2 (08:42→20:30)
[2018-12-29] MEDS: BUDESONIDE/FORMOTEROL FUMARATE 160/4.5 60 PUFFS/INHALER INH SCH (08:43)
[2018-12-29] MEDS: TIOTROPIUM BROMIDE 5 PUFF/90 MCG INH INH SCH (08:43)
[2018-12-29] MEDS: D5NSS + 20MEQ KCL 20 MEQ/1,000 ML BAG IV SCH ×2 (09:13→21:40)
[2018-12-29] MEDS ORDERED: HYDROmorphone HCL 2 MG TAB PO PRN (13:37)
[2018-12-29] MEDS: MoRPHine SULFATE 10 MG/0.5 ML UDP PO PRN (16:03)
--- NOTE | 2018-12-29 16:20 | Hospitalist Progress Note ---
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 Chung Recent CT abdomen and pelvis/CT chest shows progression of disease Admitted yesterday with abdominal pain nausea vomiting ongoing diarrhea CT abdomen pelvis: Shows no evidence of bowel obstruction/abdominal carcinomatosis Started on clear liquid diet, tolerating well Diet advanced to solid as per patient's request Patient is scheduled to have follow-up with hematology oncology at [facility] next 01/01/2019 Will have copy of medical records including latest CT scan and CD copy prior to discharge for continuation of care Patient's overall prognosis remains extremely poor Secondary to metastatic malignancy Symptom improved with IV fluids, Very poor prognosis Severe protein calorie malnutrition Significant weight loss, BMI 17 secondary to widespread metastatic malignancy recent bowel obstruction, ongoing secondary diarrhea secondary to neuroendocrine tumor Very poor prognosis Nutrition consult requested for diet supplement Hypokalemia Secondary to ongoing GI loss Ordered p.o. supplement, repeat lab in the morning Patient will be given prescription for daily scheduled potassium tablet History of DVT/PE with ongoing Lovenox treatment Lovenox therapeutic dose continued Dose adjusted based on factor X a level Appreciate input from pharmacy Disposition: Plan to discharge home possible tomorrow 12/30/2018 patient has scheduled follow-up with hematology oncology department in [facility] on 01/01/2019 Subjective Diet advanced to solid, tolerating well Lower abdominal pain/cramps controlled with PRN Dilaudid Will be discharged on p.o. Dilaudid tablet Has not had any vomiting, episodes of nausea which was resolved with PRN Zofran No loose bowel movement today Possible discharge home tomorrow if remains medically stable Patient's present at bedside, updated Review of Systems Review of Systems: All systems reviewed & are unremarkable except as noted in HPI & below Physical Exam Constitutional: + thin and + cachectic; no acute distress Eyes: + anicteric sclerae ENMT: external ear and nose normal, oropharynx normal Neck: trachea midline, no thyromegaly Respiratory: normal respiratory effort, lungs clear to auscultation Cardiovascular: RRR, no murmur, no edema Gastrointestinal (Abdomen): Percussion/Palpation: abdomen soft; abdomen nontender Musculoskeletal: no cyanosis or clubbing, extremities motor strength 5/5 Skin: no rashes, warm and dry Neurologic: PERRL, EOMI, accommodation nl, no face palsy, no dysarthria Psychiatric: A+Ox3, euthymic affect Results & Data Vital Signs (Past 12 Hours) Vital Signs Temp Pulse Resp BP BP Pulse Ox 12/29/18 15:03 36.8 C 74 20 112/70 92 12/29/18 07:44 36.7 C 86 16 96/60 L 95
[2018-12-29] MEDS: allopurinoL 300 MG TAB PO SCH (20:35)
[2018-12-30] MEDS: ENOXAPARIN INJ 40 MG/0.4 ML SYR SQ SCH ×2 (05:55→18:44)
[2018-12-30] MEDS: ONDANSETRON INJ 2 MG/ML 2 ML VIAL IV PRN ×2 (06:16→13:58)
[2018-12-30] MEDS: MoRPHine SULFATE CR 15 MG TABCR PO SCH ×2 (08:48→20:31)
[2018-12-30] MEDS: TIOTROPIUM BROMIDE 5 PUFF/90 MCG INH INH SCH (08:48)
[2018-12-30] MEDS: POTASSIUM CHLORIDE 20 MEQ TABCR PO SCH (08:48)
[2018-12-30] MEDS: PARoxetine HCl 20 MG TAB PO SCH (08:49)
[2018-12-30] MEDS: BUDESONIDE/FORMOTEROL FUMARATE 160/4.5 60 PUFFS/INHALER INH SCH (08:50)
[2018-12-30] MEDS ORDERED: LOPERAMIDE HCL 2 MG CAP PO STA (09:23)
[2018-12-30] MEDS ORDERED: POTASSIUM CHLORIDE 20 MEQ TABCR PO STA (09:24)
[2018-12-30] MEDS: SACCHAROMYCES BOULARDII 250 MG CAP PO SCH (09:30)
[2018-12-30] MEDS: D5NSS + 20MEQ KCL 20 MEQ/1,000 ML BAG IV SCH ×2 (10:26→22:40)
--- NOTE | 2018-12-30 11:51 | Hospitalist Progress Note ---
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: Nausea vomiting Admitted with intractable nausea vomiting, diarrhea CT abdomen pelvis on admission showed mildly distended stomach, no evidence of bowel obstruction, progression of metastatic disease High risk for recurrent bowel obstruction secondary to peritoneal carcinomatosis( recent admission with bowel obstruction s/p sigmoid stent placement by Hazel BAUM ) Bowel rest/ IV fluids Will need repeat CT abdomen pelvis if patient becomes symptomatic with abdominal pain distention, persistent nausea vomiting Metastatic neuroendocrine carcinoma Metastatic neuro endocrine tumor of cecum and pancreas with widespread metastatic liver/lung/lymph nodes/inferior vena cava/vascular structures/ureter Status post adjuvant chemo treatment surgery, radiation treatment with continued progression of malignancy Recent admission with chronic obstruction secondary to metastatic disease status post sigmoid colon stent placement Patient has been getting immune therapy at [facility] hematology oncology under care of Dr. Chung Recent CT abdomen and pelvis/CT chest shows progression of disease Admitted yesterday with abdominal pain nausea vomiting ongoing diarrhea CT abdomen pelvis: Shows no evidence of bowel obstruction/abdominal carcinomatosis Started on clear liquid diet, tolerating well Diet advanced to solid as per patient's request Developed vomiting episode today, ordered for bowel rest IV fluids Patient's overall prognosis remains very poor Patient is scheduled to have follow-up with hematology oncology at [facility] next 01/01/2019-for second opinion Will have copy of medical records including latest CT scan and CD copy prior to discharge for continuation of care Patient's overall prognosis remains extremely poor Dehydration -secondary to metastatic malignancy Symptom improved with IV fluids, Very poor prognosis Severe protein calorie malnutrition Significant weight loss, BMI 17 secondary to widespread metastatic malignancy recent bowel obstruction, ongoing secondary diarrhea secondary to neuroendocrine tumor Very poor prognosis Nutrition consult requested for diet supplement Hypokalemia Secondary to ongoing GI loss-diarrhea/episode of vomiting Added IV potassium supplement to maintenance fluids Follow BMP History of DVT/PE with ongoing Lovenox treatment Lovenox therapeutic dose continued Dose adjusted based on factor X a level Appreciate input from pharmacy Disposition: Plan to discharge home possible tomorrow 12/31/2018 if remains medically stable patient has scheduled follow-up with hematology oncology department in [facility] on 01/01/2019 Subjective Patient vomited large amount (approximately 1 L) liquid, undigested food this afternoon, Denies of abdominal pain, did not had any prodromal symptoms, nausea Developed projectile vomiting Patient states for the last 2 days felt her food was sitting in the mid/lower abdomen Feels much better after vomiting No complaint of abdominal pain or distention Had loose bowel movement earlier today Given patient's metastatic cancer with peritoneal carcinomatosis, prior admission with small bowel obstruction Highly likelihood of recurrent bowel obstruction again Ordered bowel rest, IV fluids Will need repeat imaging: CT abdomen pelvis if develops abdominal pain, distentio persistent nausea vomitingn Physical Exam Constitutional: + thin and + cachectic; no acute distress Eyes: + anicteric sclerae ENMT: external ear and nose normal, oropharynx normal Neck: trachea midline, no thyromegaly Respiratory: normal respiratory effort, lungs clear to auscultation Cardiovascular: RRR, no murmur, no edema Gastrointestinal (Abdomen): Percussion/Palpation: abdomen soft; abdomen nontender Musculoskeletal: no cyanosis or clubbing, extremities motor strength 5/5 Skin: no rashes, warm and dry Neurologic: PERRL, EOMI, accommodation nl, no face palsy, no dysarthria Psychiatric: A+Ox3, euthymic affect Results & Data Vital Signs (Past 12 Hours) Vital Signs Temp Pulse Resp BP Pulse Ox 12/30/18 07:47 36.5 C 91 H 18 126/81 96 12/30/18 04:49 36.7 C 91 H 20 116/76 95
[2018-12-30] MEDS ORDERED: ONDANSETRON INJ 2 MG/ML 2 ML VIAL IV STA (17:22)
[2018-12-30] MEDS ORDERED: PROMETHAZINE HCL 12.5 MG in SODIUM CHLORIDE 0.9% 50 ML IV PRN (17:26)
[2018-12-30] MEDS: allopurinoL 300 MG TAB PO SCH (20:31)
[2018-12-30] MEDS: LOPERAMIDE HCL 2 MG CAP PO PRN (20:31)
[2018-12-30] MEDS: HYDROmorphone INJ 0.5 MG/0.5 ML SYR IV PRN (20:31)
[2018-12-30] MEDS ORDERED: METOCLOPRAMIDE HCL INJ 5 MG/ML 2 ML VIAL IV PRN (22:21)
[2018-12-30] MEDS ORDERED: IOVERSOL 100ml IV PRN (23:05)
[2018-12-30 23:53] LABS: Basophils # (auto) 0.01 K/uL (0-0.2); Basophils % (auto) 0.2 %; Eosinophils # (auto) 0.07 K/uL (0-0.5); Eosinophils % (auto) 1.2 %; Hematocrit (blood only) 33.7 % (37-47); Hemoglobin 10.5 g/dL (12.0-16.0); Immature Granulocytes # (auto) 0.01 K/uL (0.00-0.02); Immature Granulocytes % (auto) 0.2 %; Lymphocytes # (auto) 0.55 K/uL (1.2-3.4); Lymphocytes % (auto) 9.3 %; Mean Corpuscular Hemoglobin 27.9 pg (25-34); Mean Corpuscular Hgb Conc 31.2 g/dL (32-36); Mean Corpuscular Volume 89.4 fL (80-100); Mean Platelet Volume 9.2 fL (7.4-10.4); Monocytes # (auto) 1.14 K/uL (0.11-0.59); Monocytes % (auto) 19.2 %; Neutrophils # (auto) 4.15 K/uL (1.4-6.5); Neutrophils % (auto) 69.9 %; Platelet Count 473 K/uL (130-400); RDW Coefficient of Variation 16.1 % (11.5-14.5); RDW Standard Deviation 52.9 fL (36.4-46.3); Red Blood Count 3.77 M/uL (4.2-5.4); White Blood Count 5.93 K/uL (4.8-10.8)
[2018-12-31 00:12] LABS: Albumin Level 2.5 gm/dl (3.4-5.0); BUN Creatinine Ratio 5.9 (10-20); Calcium 8.3 mg/dl (8.5-10.1); Creatinine Clr Calc Pharmacy 54.4 ml/min; Est GFR (African American) 89.5; Est GFR (Non-African American) 77.2; Magnesium 1.8 mg/dl (1.8-2.4); Potassium 3.4 mmol/L (3.5-5.1)
[2018-12-31 00:15] LABS: Albumin Globulin Ratio 0.8 (0.9-2); Bilirubin,Total 0.3 mg/dl (0.2-1); Globulin 3.3 gm/dl (2.5-4.0); Total Protein 5.8 gm/dl (6.4-8.2)
--- NOTE | 2018-12-31 00:27 | Hospitalist Progress Note ---
Date of Service December 31, 2018 Subjective Made aware by RN of increased nausea, emesis symptoms, abdominal distention. CT abdomen pelvis initial read: Bowel obstruction. Previous bowel resection. Thickened mass lesion rectosigmoid colon. Underlying stent. Gastric distention. Hepatic mets. Fluid in the peritoneal cavity. Right percutaneous nephrostomy. No hydronephrosis. Retroperitoneal/pelvic adenopathy. Sacral edema/infiltration. Nodules right lung base. AP Recurrent bowel obstruction History bowel surgery for recurrent neuroendocrine tumor Bowel rest NGT decompression Surgery consult in a.m. RE recurrent bowel obstruction Change Lovenox SQ for PE/DVT to IV heparin for now in anticipation of any procedure. Will relay to AM provider. Results & Data Vital Signs (Past 12 Hours) Vital Signs Temp Pulse Resp BP BP Pulse Ox 12/30/18 23:28 36.6 C 91 H 20 122/78 93 12/30/18 14:49 36.4 C L 84 18 119/75 96
[2018-12-31] MEDS ORDERED: MAGNESIUM SULFATE / D5W 1 GM/100 ML BAG IV ONE (00:30)
[2018-12-31] MEDS ORDERED: POTASSIUM CHLORIDE / WTR 10 MEQ/100 ML PLCT IV ONE (00:30)
[2018-12-31] MEDS: POTASSIUM CHLORIDE 40 MEQ in D5W AND NSS 1,000 ML IV SCH ×2 (00:56→18:31)
[2018-12-31] MEDS ORDERED: Heparin IV Standard *NO* Bolus IV SCH (01:00)
[2018-12-31 01:33] LABS: Basophils # (auto) 0.01 K/uL (0-0.2); Basophils % (auto) 0.1 %; Eosinophils % (auto) 1.4 %; Hematocrit (blood only) 32.6 % (37-47); Hemoglobin 10.6 g/dL (12.0-16.0); Immature Granulocytes # (auto) 0.01 K/uL (0.00-0.02); Immature Granulocytes % (auto) 0.1 %; Lymphocytes # (auto) 0.69 K/uL (1.2-3.4); Lymphocytes % (auto) 9.5 %; Mean Corpuscular Hemoglobin 28.8 pg (25-34); Mean Corpuscular Volume 88.6 fL (80-100); Mean Platelet Volume 8.6 fL (7.4-10.4); Monocytes # (auto) 1.14 K/uL (0.11-0.59); Monocytes % (auto) 15.7 %; Neutrophils % (auto) 73.2 %; Platelet Count 451 K/uL (130-400); RDW Standard Deviation 51.7 fL (36.4-46.3); Red Blood Count 3.68 M/uL (4.2-5.4); White Blood Count 7.25 K/uL (4.8-10.8)
[2018-12-31 01:42] LABS: Mean Corpuscular Hgb Conc 32.5 g/dL (32-36)
[2018-12-31 01:47] LABS: INR 1.1 (0.9-1.1); Partial Thromboplastin Ratio 1.2; Partial Thromboplastin Time 31.6 Seconds (21.0-31.0); Prothrombin Time 11.3 Seconds (9.0-12.0)
[2018-12-31] MEDS: HEPARIN SODIUM/DEXTROSE 25,000 UNITS/500 ML BAG IV SCH ×2 (02:20→18:30)
[2018-12-31] MEDS: LOPERAMIDE HCL 2 MG CAP PO PRN (04:56)
[2018-12-31 06:17] LABS: Basophils # (auto) 0.01 K/uL (0-0.2); Basophils % (auto) 0.2 %; Eosinophils # (auto) 0.12 K/uL (0-0.5); Eosinophils % (auto) 1.9 %; Hematocrit (blood only) 33.1 % (37-47); Hemoglobin 10.4 g/dL (12.0-16.0); Immature Granulocytes # (auto) 0.01 K/uL (0.00-0.02); Immature Granulocytes % (auto) 0.2 %; Mean Corpuscular Hemoglobin 28.4 pg (25-34); Mean Corpuscular Hgb Conc 31.4 g/dL (32-36); Mean Corpuscular Volume 90.4 fL (80-100); Mean Platelet Volume 9.8 fL (7.4-10.4); Monocytes # (auto) 1.21 K/uL (0.11-0.59); Monocytes % (auto) 19.1 %; Neutrophils % (auto) 67.6 %; Platelet Count 534 K/uL (130-400); RDW Coefficient of Variation 16.2 % (11.5-14.5); RDW Standard Deviation 53.5 fL (36.4-46.3); Red Blood Count 3.66 M/uL (4.2-5.4); White Blood Count 6.35 K/uL (4.8-10.8)
--- NOTE | 2018-12-31 06:35 | CT Scan Report ---
CT abd pelvis IV con only CT DOSE: 231.86 mGy.cm HISTORY: worsening abd distension/vomiting TECHNIQUE: Multiaxial CT images of the abdomen and pelvis were performed following the use of intrave nous contrast. A dose lowering technique was utilized adhering to the principles of ALARA. COMPARISON STUDY: 12/28/2018 FINDINGS: Unchanged nodularity right lung base. Hepatic metastatic disease is again noted. Right-sided nephrostomy in good position. Atrophic right kidney. Left kidney is negative for hydronephrosis. Mildly progressive gastric as well as small bowel distention. Rectosigmoid stent with evidence for so me progressive narrowing at its superior and/or proximal extent. Slightly progressive abdominal and pelvic ascites. IMPRESSION: 1. Mildly progressive small bowel obstructive change and gastric distention. 2. Similar basilar nodularity and metastatic changes to the liver. 3. Potential developing carcinomatosis including presacral soft tissue prominence The above report was generated using voice recognition software. It may contain grammatical, syntax or spelling errors. Electronically signed by: David Bass M.D. 12/31/2018 6:34 AM
[2018-12-31 06:59] LABS: Calcium 8.2 mg/dl (8.5-10.1); Creatinine Clr Calc Pharmacy 56.2 ml/min; Est GFR (African American) 95.1; Est GFR (Non-African American) 82.1; Potassium 3.5 mmol/L (3.5-5.1)
[2018-12-31 08:55] LABS: INR 1.1 (0.9-1.1); Prothrombin Time 11.1 Seconds (9.0-12.0)
[2018-12-31] MEDS: TIOTROPIUM BROMIDE 5 PUFF/90 MCG INH INH SCH (09:00)
[2018-12-31] MEDS: BUDESONIDE/FORMOTEROL FUMARATE 160/4.5 60 PUFFS/INHALER INH SCH (09:00)
[2018-12-31 11:11] LABS: Partial Thromboplastin Ratio 1.7
[2018-12-31 11:17] LABS: Partial Thromboplastin Time 46.3 Seconds (21.0-31.0)
--- NOTE | 2018-12-31 11:45 | Surgery Consultation ---
Date of Consultation December 31, 2018 Assessment & Plan (1) Metastatic colon cancer in female: Guadalupe is a very pleasant 63 year-old female with history significant for recurrent neuroendocrine cecal appendiceal carcinoma, status post small bowel bypass originally to transverse colon (07/2016)followed by chemoradiation (02/2017) and then right hemicolectomy (03/2017). History of large bowel obstruction in October , status post colonic stent placement. She currently is receiving immunotherapy by Dr. Chung every other week. She recently on 12/23/2018 had a CAT scan of the abdomen and pelvis and also chest CT, which showed progression of the disease and she has appointment at [facility] tomorrow for second opinion. CT scan of abdomen and pelvis on 12/28/2018 showed narrowing of the proximal colonic stent and now with findings of bowel obstructive change on CT scan. -NGT placed last evening 900 cc output Plan: Patient currently has extensive metastatic disease to liver and lungs with carcinomatosis. There is narrowing of the proximal stent which is likely causing colonic obstruction. She is still having bowel function therefore no immediate surgical intervention required however may warrant further evaluation by gastroenterology to evaluate colonic stent for possible replacement/adjustment. She has appointment at [facility] with medical oncologist tomorrow for second opinion regarding her treatment, unfortunately she will have to reschedule. Adjustment of colonic stent could give her some time to get her second opinion in regards to further treatment/management. From surgical standpoint could consider loop ileostomy depending on GI recommendations however given extent of disease she would likely need tertiary center management. Continue current conservative management of bowel obstruction: NPO, NGT to LIS, Pain management and antiemetics as needed. (2) Large bowel obstruction: Plan as above (3) Stricture of colon: Plan as above Dr. Espitia has seen and examined patient, please see addendum for further recommendations/plan Supervising Physician Co-Signing Physician Notes I interviewed and examined this patient I agree with the above note. This is a readmission for was most likely partial obstruction. She is moving her bowels. There is seems to be narrowing at the superior aspect of the previously placed colonic stent. Surgical intervention for this narrowing would in my mind only leave ileostomy as an option. This might be a difficult procedure as well considering that she may have intra-abdominal carcinomatosis. Since she is moving her bowels consider removing the NG tube tomorrow. If surgical intervention is warranted may wish to consider tertiary care center. History of Present Illness Reason for Consultation: Bowel obstruction Requesting Physician: Barbara Almaraz Attending Physician: Barbara Almaraz MD History of Present Illness Guadalupe is a very pleasant 63 year-old female with history significant for recurrent neuroendocrine cecal appendiceal carcinoma, status post small bowel bypass originally to transverse colon (08/08/[address] Kaufman) follow by chemoradiation (02/2017) and then right hemicolectomy (03/[address] Cheng at [facility]). She also has nephrostomy tube placement for hydronephrosis secondary retroperitoneal lymphadenopathy causing right hydroneprosis. Extensive metastatic disease to liver and lungs with carcinomatosis. The patient was in the hospital in October with large bowel obstruction with colonic ulcer . 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 She currently is receiving immunotherapy by Dr. Chung every other week. She recently on 12/23/2018 had a CAT scan of the abdomen and pelvis and also chest CT, which showed progression of the disease and she has appointment at [facility] tomorrow for second opinion. Guadalupe present to hospital late Sunday evening with increased abdominal pain, nausea, and vomiting. States her pain is pretty well controlled with daily Morphine however pain increased Sunday night. She had a CT scan which showed narrowing at the level of the proximal stent and some gastric distention which was slightly progressed from her previous CT scan on 12/23/18. Her diet was originally clear liquids and then advanced for dinner last evening and then she developed nausea, abdominal bloating and vomiting. NGT was placed and repeat CT scan again showed similar findings but small bowel and stomach distention again. Since last evening and NGT placement she is feeling better. No nausea. No vomiting. Abdomen is not distended. Had episodes of diarrhea this morning. Allergies Allergy/AdvReac Type Severity Reaction Status Date / Time No Known Allergies Allergy Verified 12/28/18 05:47 Home Medications Home Medications Medication Instructions Recorded Confirmed Type albuterol sulfate [ProAir HFA] 2 puff INHALATION Q6H PRN 04/24/18 12/28/18 History paroxetine HCl 30 mg PO QAM 04/24/18 12/28/18 History Symbicort 1 puff INHALATION QAM 05/25/18 12/28/18 History allopurinol 300 mg PO HS 05/25/18 12/28/18 History enoxaparin 55 mg SUBCUT Q12H 10/13/18 12/28/18 History simethicone [Gas Relief] 80 mg PO DIRECTED PRN 10/13/18 12/28/18 History cyclobenzaprine 10 mg PO TID PRN #90 tab 10/20/18 12/28/18 Rx morphine concentrate 0.5 ml PO Q4 PRN #30 ml 10/20/18 12/28/18 Rx lorazepam 0.5 mg PO BID PRN 11/04/18 12/28/18 History tiotropium bromide 2.5 2 puff INHALATION DAILY #4 gm 12/13/18 12/28/18 Rx mcg/actuation mist for inhalation morphine 15 mg PO Q12H 12/28/18 12/28/18 History enoxaparin 40 mg SUBCUT Q12 30 Days #24 ml 12/29/18 Rx hydromorphone 2 mg PO Q4 PRN #60 tab 12/29/18 Rx ondansetron HCl [Zofran] 4 mg PO Q6H PRN 30 Days #120 tab 12/29/18 Rx potassium chloride [Klor-Con M20] 20 meq PO QAM 30 Days #30 tab 12/29/18 Rx Patient History Medical History Neuroendocrine carcinoma metastatic to intra-abdominal lymph node (Chronic) 04/2018 [facility], [place], found to have extensive retroperitoneal disease, IVC thrombus, pulmonary embolism, core needle biopsy of the retroperitoneal mass confirmed high-grade neuroendocrine carcinoma recurrent Dr Chung progress note "DIAGNOSIS: - Cecal adenocarcinoma, S/P exploratory laparotomy, found to have unresectable disease underwent ileo- small bowel to transverse colon [id number] anastomosis on 08/08/2016. S/P neoadjuvant modified FOLFOX 6 chemotherapy x 5 -Oxaliplatin induced the liver toxicity, received 5-Fluorouracil leucovorin x 7. Last cycle received on 02/12/2018. S/P right hemicolectomy on 03/23/2017 (by Dr. Cheng). 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 KRAS and BRAF mutation-->negative. 04/2018: -recurrent high-grade neuroendocrine carcinoma involving the retroperitoneal lymph regan region causing right hydronephrosis, S/P percutaneous nephrostomy drainage. -IVC thrombus, pulmonary embolism. - Essential thrombocythemia diagnosed in 2005, JAK2 mutation positive platelet count was over 1 million at that time the diagnosis. She is on hydroxyurea for that." Metastatic disease (Chronic) IVC thrombosis (Chronic) Pulmonary embolism (Chronic) Thrombocytosis (Chronic) Colon cancer (Chronic) S/P right hemicolectomy on 03/23/2017 (by Dr. Cheng). 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 COPD (chronic obstructive pulmonary disease) (Chronic) Surgical History H/O rotator cuff surgery (Chronic) History of arthroscopy of left knee (Chronic) S/P removal of right ovary (Chronic) History of partial surgical removal of colon (Chronic) Family History Grandmother (Paternal) , of childbirth No problems noted. Grandfather (Paternal) , of lung cancer at age 7 No problems noted. Father , of protsate cancer No problems noted. Mother , of breas cancer with metastasis to lung and brain No problems noted. Brother Age: 63 Prostate cancer Brother Age: 57 Prostate cancer Sister Age: 50 No problems noted. Daughter Age: 27 No problems noted. 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 Beliefs That Will Affect Care: None marital status: Current Living Situation: Spouse Feels Safe at Home: Yes Safety Concerns: Feels Safe At This Time Smoking Status: Former smoker Tobacco Type: cigarettes ; Smoking End Date: 1999 ; Second Hand Exposure: Yes ; Tobacco Cessation Education Requested by Patient: No Hx Alcohol Use: Yes Alcohol type: beer Hx Substance Use: No Review of Systems Review of Systems: All systems reviewed & are unremarkable except as noted in HPI & below Physical Exam Constitutional: + thin and + frail appearing; no acute distress and no altered mental status Respiratory: normal respiratory effort Gastrointestinal (Abdomen): Inspection/Auscultation: abdomen normal to inspection and + abdominal surgical scar (midline laparotomy scar present); abdomen not distended Percussion/Palpation: abdomen soft; abdomen nontender, no guarding and abdomen not rigid Results & Data Vital Signs (Past 12 Hours) Vital Signs Temp Pulse Resp BP Pulse Ox 12/31/18 07:15 36.6 C 80 20 118/76 95 12/31/18 04:18 36.4 C L 81 18 130/83 93 Laboratory Results 12/31/18 12/31/18 12/31/18 Range/Units 10:32 08:25 05:11 WBC (4.8-10.8) K/uL RBC (4.2-5.4) M/uL Hgb (12.0-16.0) g/dL Hct (37-47) % MCV (80-100) fL MCH (25-34) pg MCHC (32-36) g/dL RDW Std Deviation (36.4-46.3) fL RDW Coeff of [place]sabel (11.5-14.5) % Plt Count (130-400) K/uL MPV (7.4-10.4) fL Immature Gran % (Auto) % Neut % (Auto) % Lymph % (Auto) % [place] % (Auto) % Eos % (Auto) % Baso % (Auto) % Immature Gran # (Auto) (0.00-0.02) K/uL Neut # (Auto) (1.4-6.5) K/uL Lymph # (Auto) (1.2-3.4) K/uL [place] # (Auto) (0.11-0.59) K/uL Eos # (Auto) (0-0.5) K/uL Baso # (Auto) (0-0.2) K/uL PT 11.1 (9.0-12.0) Seconds INR 1.1 (0.9-1.1) APTT 46.3 H* (21.0-31.0) Seconds PTT Ratio 1.7 Sodium 135 L (136-145) mmol/L Potassium 3.5 (3.5-5.1) mmol/L Chloride 101 (98-107) mmol/L Carbon Dioxide 29 (21-32) mmol/L Anion Gap 5.0 (3-11) BUN 5 L (7-18) mg/dl Creatinine 0.78 (0.6-1.2) mg/dl Est Cr Clr Drug Dosing 56.2 ml/min Est GFR ( Amer) 95.1 Est GFR (Non-Af Amer) 82.1 BUN/Creatinine Ratio 6.0 L (10-20) Glucose 101 H (70-99) mg/dl Calcium 8.2 L (8.5-10.1) mg/dl Magnesium (1.8-2.4) mg/dl Total Bilirubin (0.2-1) mg/dl AST (15-37) U/L ALT (12-78) U/L Alkaline Phosphatase (45-117) U/L Total Protein (6.4-8.2) gm/dl Albumin (3.4-5.0) gm/dl Globulin (2.5-4.0) gm/dl Albumin/Globulin Ratio (0.9-2) Lipase (73-393) U/L Stl C. diff Tox B Gene (Neg) Blood Type Antibody Screen 12/31/18 12/31/18 12/31/18 Range/Units 05:11 01:21 01:21 WBC 6.35 7.25 (4.8-10.8) K/uL RBC 3.66 L 3.68 L (4.2-5.4) M/uL Hgb 10.4 L 10.6 L (12.0-16.0) g/dL Hct 33.1 L 32.6 L (37-47) % MCV 90.4 88.6 (80-100) fL MCH 28.4 28.8 (25-34) pg MCHC 31.4 L 32.5 (32-36) g/dL RDW Std Deviation 53.5 H 51.7 H (36.4-46.3) fL RDW Coeff of [place]sabel 16.2 H 16.0 H (11.5-14.5) % Plt Count 534 H 451 H (130-400) K/uL MPV 9.8 8.6 (7.4-10.4) fL Immature Gran % (Auto) 0.2 0.1 % Neut % (Auto) 67.6 73.2 % Lymph % (Auto) 11.0 9.5 % [place] % (Auto) 19.1 15.7 % Eos % (Auto) 1.9 1.4 % Baso % (Auto) 0.2 0.1 % Immature Gran # (Auto) 0.01 0.01 (0.00-0.02) K/uL Neut # (Auto) 4.30 5.30 (1.4-6.5) K/uL Lymph # (Auto) 0.70 L 0.69 L (1.2-3.4) K/uL [place] # (Auto) 1.21 H 1.14 H (0.11-0.59) K/uL Eos # (Auto) 0.12 0.10 (0-0.5) K/uL Baso # (Auto) 0.01 0.01 (0-0.2) K/uL PT 11.3 (9.0-12.0) Seconds INR 1.1 (0.9-1.1) APTT 31.6 H (21.0-31.0) Seconds PTT Ratio 1.2 Sodium (136-145) mmol/L Potassium (3.5-5.1) mmol/L Chloride (98-107) mmol/L Carbon Dioxide (21-32) mmol/L Anion Gap (3-11) BUN (7-18) mg/dl Creatinine (0.6-1.2) mg/dl Est Cr Clr Drug Dosing ml/min Est GFR ( Amer) Est GFR (Non-Af Amer) BUN/Creatinine Ratio (10-20) Glucose (70-99) mg/dl Calcium (8.5-10.1) mg/dl Magnesium (1.8-2.4) mg/dl Total Bilirubin (0.2-1) mg/dl AST (15-37) U/L ALT (12-78) U/L Alkaline Phosphatase (45-117) U/L Total Protein (6.4-8.2) gm/dl Albumin (3.4-5.0) gm/dl Globulin (2.5-4.0) gm/dl Albumin/Globulin Ratio (0.9-2) Lipase (73-393) U/L Stl C. diff Tox B Gene (Neg) Blood Type Antibody Screen 12/30/18 12/30/18 12/30/18 Range/Units 23:24 23:24 23:24 WBC 5.93 (4.8-10.8) K/uL RBC 3.77 L (4.2-5.4) M/uL Hgb 10.5 L (12.0-16.0) g/dL Hct 33.7 L (37-47) % MCV 89.4 (80-100) fL MCH 27.9 (25-34) pg MCHC 31.2 L (32-36) g/dL RDW Std Deviation 52.9 H (36.4-46.3) fL RDW Coeff of Ysabel 16.1 H (11.5-14.5) % Plt Count 473 H (130-400) K/uL MPV 9.2 (7.4-10.4) fL Immature Gran % (Auto) 0.2 % Neut % (Auto) 69.9 % Lymph % (Auto) 9.3 % [place] % (Auto) 19.2 % Eos % (Auto) 1.2 % Baso % (Auto) 0.2 % Immature Gran # (Auto) 0.01 (0.00-0.02) K/uL Neut # (Auto) 4.15 (1.4-6.5) K/uL Lymph # (Auto) 0.55 L (1.2-3.4) K/uL [place] # (Auto) 1.14 H (0.11-0.59) K/uL Eos # (Auto) 0.07 (0-0.5) K/uL Baso # (Auto) 0.01 (0-0.2) K/uL PT (9.0-12.0) Seconds INR (0.9-1.1) APTT (21.0-31.0) Seconds PTT Ratio Sodium 136 (136-145) mmol/L Potassium 3.4 L (3.5-5.1) mmol/L Chloride 98 (98-107) mmol/L Carbon Dioxide 33 H (21-32) mmol/L Anion Gap 5.0 (3-11) BUN 5 L (7-18) mg/dl Creatinine 0.82 (0.6-1.2) mg/dl Est Cr Clr Drug Dosing 54.4 ml/min Est GFR ( Amer) 89.5 Est GFR (Non-Af Amer) 77.2 BUN/Creatinine Ratio 5.9 L (10-20) Glucose 96 (70-99) mg/dl Calcium 8.3 L (8.5-10.1) mg/dl Magnesium 1.8 (1.8-2.4) mg/dl Total Bilirubin 0.3 (0.2-1) mg/dl AST 22 (15-37) U/L ALT 14 (12-78) U/L Alkaline Phosphatase 153 H (45-117) U/L Total Protein 5.8 L (6.4-8.2) gm/dl Albumin 2.5 L (3.4-5.0) gm/dl Globulin 3.3 (2.5-4.0) gm/dl Albumin/Globulin Ratio 0.8 L (0.9-2) Lipase 20 L (73-393) U/L Stl C. diff Tox B Gene (Neg) Blood Type A Positive Antibody Screen NEGATIVE 12/30/18 Range/Units 10:30 WBC (4.8-10.8) K/uL RBC (4.2-5.4) M/uL Hgb (12.0-16.0) g/dL Hct (37-47) % MCV (80-100) fL MCH (25-34) pg MCHC (32-36) g/dL RDW Std Deviation (36.4-46.3) fL RDW Coeff of Ysabel (11.5-14.5) % Plt Count (130-400) K/uL MPV (7.4-10.4) fL Immature Gran % (Auto) % Neut % (Auto) % Lymph % (Auto) % [place] % (Auto) % Eos % (Auto) % Baso % (Auto) % Immature Gran # (Auto) (0.00-0.02) K/uL Neut # (Auto) (1.4-6.5) K/uL Lymph # (Auto) (1.2-3.4) K/uL [place] # (Auto) (0.11-0.59) K/uL Eos # (Auto) (0-0.5) K/uL Baso # (Auto) (0-0.2) K/uL PT (9.0-12.0) Seconds INR (0.9-1.1) APTT (21.0-31.0) Seconds PTT Ratio Sodium (136-145) mmol/L Potassium (3.5-5.1) mmol/L Chloride (98-107) mmol/L Carbon Dioxide (21-32) mmol/L Anion Gap (3-11) BUN (7-18) mg/dl Creatinine (0.6-1.2) mg/dl Est Cr Clr Drug Dosing ml/min Est GFR ( Amer) Est GFR (Non-Af Amer) BUN/Creatinine Ratio (10-20) Glucose (70-99) mg/dl Calcium (8.5-10.1) mg/dl Magnesium (1.8-2.4) mg/dl Total Bilirubin (0.2-1) mg/dl AST (15-37) U/L ALT (12-78) U/L Alkaline Phosphatase (45-117) U/L Total Protein (6.4-8.2) gm/dl Albumin (3.4-5.0) gm/dl Globulin (2.5-4.0) gm/dl Albumin/Globulin Ratio (0.9-2) Lipase (73-393) U/L Stl C. diff Tox B Gene Negative Cdiff Gene (Neg) Blood Type Antibody Screen Diagnostic Findings CT abd pelvis wo con 12/28/2018 CT DOSE: 217.69 mGy.cm HISTORY: Pain abdominal pain, hx of neuroendocrine cancer TECHNIQUE: Multiaxial CT images of the abdomen and pelvis were performed without contrast. A dose lowering technique was utilized adhering to the principles of ALARA. COMPARISON STUDY: 12/23/2018 FINDINGS: Similar examination compared to the prior study. Slight basilar nodularity unaltered. Metastatic liver lesions similar within limitations of an unenhanced scan. Trace amount of perihepatic ascites. Mild increase in gastric distention. Potential carcinomatosis is again noted and is similar. Rectosigmoid stent unchanged in position. Soft tissue narrowing of the proximal aspect of the stent with mild distention of the bowel proximal to this level. Moderate increase in colonic fecal load compared to prior study. Kidneys negative for hydronephrosis. IMPRESSION: 1. Similar study compared to the prior exam. 2. Mild increase in gastric distention as well as mild increase in colonic fecal load. 3. Soft tissue at the proximal aspect of the rectosigmoid stent, similar to and are slightly progressive compared to the prior study. 4. This is creating early evidence for colonic distention/partial obstructive change.. 5. Probable early carcinomatosis unchanged. CT abd pelvis IV con only 12/30/2018 CT DOSE: 231.86 mGy.cm HISTORY: worsening abd distension/vomiting TECHNIQUE: Multiaxial CT images of the abdomen and pelvis were performed following the use of intravenous contrast. A dose lowering technique was utilized adhering to the principles of ALARA. COMPARISON STUDY: 12/28/2018 FINDINGS: Unchanged nodularity right lung base. Hepatic metastatic disease is again noted. Right-sided nephrostomy in good position. Atrophic right kidney. Left kidney is negative for hydronephrosis. Mildly progressive gastric as well as small bowel distention. Rectosigmoid stent with evidence for some progressive narrowing at its superior and/or proximal extent. Slightly progressive abdominal and pelvic ascites. IMPRESSION: 1. Mildly progressive small bowel obstructive change and gastric distention. 2. Similar basilar nodularity and metastatic changes to the liver. 3. Potential developing carcinomatosis including presacral soft tissue prominence
[2018-12-31] MEDS: SACCHAROMYCES BOULARDII 250 MG CAP PO SCH (12:37)
[2018-12-31] MEDS: POTASSIUM CHLORIDE 20 MEQ TABCR PO SCH (12:37)
[2018-12-31] MEDS: PARoxetine HCl 20 MG TAB PO SCH (12:38)
--- NOTE | 2018-12-31 14:07 | Gastrointestinal Consultation ---
Date of Consultation December 31, 2018 Assessment & Plan (1) Metastatic colon cancer in female: (2) Large bowel obstruction: Pt w hx of neuroendocrine cecal, appendiceal carcinoma s/p R hemicolectomy in 2017, chemoradiation. Recurrence of tumor noted w extension to liver, retroperitoneal area, involving IVC, and surrounding lymph nodes. Had tumor obstruction of sigmoid region in October s/p colonic stent placement on 10/17/18. Currently presenting w partial obstruction symptoms again and CT imaging studies showed progression of mass in proximal aspect of stent. - Keep NGT in LIS - NPO - Will discuss case with Dr. Rivero for possible placement of another colonic stent. Supervising Physician Co-Signing Physician Notes I have personally seen and examined the patient with DEJUAN Pham. Her note reflects my exam and findings. I agree with her impression and plan. Findings concerning for progressive disease. Will discuss with Dr. Rivero potential/usefulness of restenting. Aneesh Post M.D. History of Present Illness Reason for Consultation: Bowel obstruction; hx of colonic stent placement Requesting Physician: Dr. Barbara Almaraz Attending Physician: Dr. Aneesh Post History of Present Illness Pt is a 63 y/o female w hx of neuroendocrine cecal, appendiceal carcinoma s/p R hemicolectomy in 2017, chemoradiation. Recurrence of tumor noted w extension to liver, retroperitoneal area, involving IVC, and surrounding lymph nodes. She was admitted in October w tumor obstruction of sigmoid area. She had colonic stent placed by Dr. Rivero on 10/17/18 and did quite well. She had been undergoing chemo every other week per directive of Dr. Chung. She has appt set up at [facility] for second opinion. She presented 2 days ago w c/o nausea, abd distension, pain. CT abd/pelvis showed signs of obstruction w also progression of soft tissue mass at proximal aspect of the rectosigmoid stent. Currently she is NPO and has NGT w LIS in place. 900mL output today. She is passing some diarrhea and flatus. Allergies Allergy/AdvReac Type Severity Reaction Status Date / Time No Known Allergies Allergy Verified 12/28/18 05:47 Home Medications Home Medications Medication Instructions Recorded Confirmed Type albuterol sulfate [ProAir HFA] 2 puff INHALATION Q6H PRN 04/24/18 12/28/18 History paroxetine HCl 30 mg PO QAM 04/24/18 12/28/18 History Symbicort 1 puff INHALATION QAM 05/25/18 12/28/18 History allopurinol 300 mg PO HS 05/25/18 12/28/18 History enoxaparin 55 mg SUBCUT Q12H 10/13/18 12/28/18 History simethicone [Gas Relief] 80 mg PO DIRECTED PRN 10/13/18 12/28/18 History cyclobenzaprine 10 mg PO TID PRN #90 tab 10/20/18 12/28/18 Rx morphine concentrate 0.5 ml PO Q4 PRN #30 ml 10/20/18 12/28/18 Rx lorazepam 0.5 mg PO BID PRN 11/04/18 12/28/18 History tiotropium bromide 2.5 2 puff INHALATION DAILY #4 gm 12/13/18 12/28/18 Rx mcg/actuation mist for inhalation morphine 15 mg PO Q12H 12/28/18 12/28/18 History enoxaparin 40 mg SUBCUT Q12 30 Days #24 ml 12/29/18 Rx hydromorphone 2 mg PO Q4 PRN #60 tab 12/29/18 Rx ondansetron HCl [Zofran] 4 mg PO Q6H PRN 30 Days #120 tab 12/29/18 Rx potassium chloride [Klor-Con M20] 20 meq PO QAM 30 Days #30 tab 12/29/18 Rx Patient History Medical History 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 S/P neoadjuvant modified FOLFOX 6 chemotherapy x 5 -Oxaliplatin induced the liver toxicity, received 5-Fluorouracil leucovorin x 7. Last cycle received on 02/12/2018. S/P right hemicolectomy on 03/23/2017 (by Dr. Cheng). 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 KRAS and BRAF mutation-->negative. 04/2018: -recurrent high-grade neuroendocrine carcinoma involving the retroperitoneal lymph regan region causing right hydronephrosis, S/P percutaneous nephrostomy drainage. -IVC thrombus, pulmonary embolism. - Essential thrombocythemia diagnosed in 2005, JAK2 mutation positive platelet count was over 1 million at that time the diagnosis. She is on hydroxyurea for that." Metastatic disease (Chronic) IVC thrombosis (Chronic) Pulmonary embolism (Chronic) Thrombocytosis (Chronic) Colon cancer (Chronic) S/P right hemicolectomy on 03/23/2017 (by Dr. Cheng). 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 COPD (chronic obstructive pulmonary disease) (Chronic) Surgical History H/O rotator cuff surgery (Chronic) History of arthroscopy of left knee (Chronic) S/P removal of right ovary (Chronic) History of partial surgical removal of colon (Chronic) Family History Grandmother (Paternal) , of childbirth No problems noted. Grandfather (Paternal) , of lung cancer at age 7 No problems noted. Father , of protsate cancer No problems noted. Mother , of breas cancer with metastasis to lung and brain No problems noted. Brother Age: 63 Prostate cancer Brother Age: 57 Prostate cancer Sister Age: 50 No problems noted. Daughter Age: 27 No problems noted. Other No pertinent family history Social History Preferred Language: Citizen Of [place] Communication Ability: Effective Doffer Required: No Beliefs That Will Affect Care: None marital status: Current Living Situation: Spouse Feels Safe at Home: Yes Safety Concerns: Feels Safe At This Time Smoking Status: Former smoker Tobacco Type: cigarettes ; Smoking End Date: 1999 ; Second Hand Exposure: Yes ; Tobacco Cessation Education Requested by Patient: No Hx Alcohol Use: Yes Alcohol type: beer Hx Substance Use: No Review of Systems Review of Systems: All systems reviewed & are unremarkable except as noted in HPI & below Physical Exam Constitutional: + thin, well groomed, cooperative and comfortable Eyes: PERRL, conjunctivae normal, anicteric sclerae ENMT: external ear and nose normal, oropharynx normal Respiratory: normal respiratory effort, lungs clear to auscultation Cardiovascular: RRR, no murmur, no edema Gastrointestinal (Abdomen): Inspection/Auscultation: + hypoactive bowel sounds Percussion/Palpation: abdomen soft; abdomen nontender Skin: no rashes, warm and dry no jaundice Neurologic: Motor/Sensory: no asterixis Psychiatric: A+Ox3, euthymic affect Lymphatic: no lymphedema Results & Data Vital Signs (Past 12 Hours) Vital Signs Temp Pulse Resp BP Pulse Ox 12/31/18 07:15 36.6 C 80 20 118/76 95 12/31/18 04:18 36.4 C L 81 18 130/83 93
[2018-12-31] MEDS: MoRPHine SULFATE CR 15 MG TABCR PO SCH ×2 (14:09→20:06)
--- NOTE | 2018-12-31 15:47 | Anesthesiology Consultation ---
Date of Service December 31, 2018 Assessment & Plan (1) Encounter for pre-operative examination: Chart Review Chart Review: Acceptable Risk for Surgery History Surgery Operation Date: 12/31/18 13:50 Proposed Procedures p Colonoscopy Dr Rivero - Sathish Rivero Height/Weight Height: 5 ft 1 in Weight: 47 kg Allergies Allergy/AdvReac Type Severity Reaction Status Date / Time No Known Allergies Allergy Verified 12/28/18 05:47 Medications Home Medications Medication Instructions Recorded Confirmed Last Taken albuterol sulfate [ProAir HFA] 2 puff INHALATION Q6H PRN 04/24/18 12/28/18 11/04/18 paroxetine HCl 30 mg PO QAM 04/24/18 12/28/18 12/27/18 Symbicort 1 puff INHALATION QAM 05/25/18 12/28/18 12/27/18 allopurinol 300 mg PO HS 05/25/18 12/28/18 12/27/18 enoxaparin 55 mg SUBCUT Q12H 10/13/18 12/28/18 12/27/18 simethicone [Gas Relief] 80 mg PO DIRECTED PRN 10/13/18 12/28/18 Unknown cyclobenzaprine 10 mg PO TID PRN #90 tab 10/20/18 12/28/18 Unknown morphine concentrate 0.5 ml PO Q4 PRN #30 ml 10/20/18 12/28/18 12/28/18 lorazepam 0.5 mg PO BID PRN 11/04/18 12/28/18 Unknown tiotropium bromide 2.5 2 puff INHALATION DAILY #4 gm 12/13/18 12/28/18 12/27/18 mcg/actuation mist for inhalation morphine 15 mg PO Q12H 12/28/18 12/28/18 12/27/18 enoxaparin 40 mg SUBCUT Q12 30 Days #24 ml 12/29/18 Unknown hydromorphone 2 mg PO Q4 PRN #60 tab 12/29/18 Unknown ondansetron HCl [Zofran] 4 mg PO Q6H PRN 30 Days #120 tab 12/29/18 Unknown potassium chloride [Klor-Con M20] 20 meq PO QAM 30 Days #30 tab 12/29/18 Unk nown Active Medications Generic Name Dose Route Start Last Admin Trade Name Freq PRN Reason Stop Dose Admin Allopurinol 300 mg 12/28/18 21:00 12/30/18 20:31 Zyloprim PO 01/27/19 20:59 300 mg HS VERONICA Administration Budesonide/Formoterol Fumarate 1 puffs 12/28/18 09:26 12/31/18 09:00 Symbicort 160mcg/4.5mcg INH 01/27/19 09:25 1 puffs QAM VERONICA Administration Cyclobenzaprine HCl 10 mg 12/28/18 09:26 12/28/18 20:43 Flexeril PO 01/27/19 09:25 10 mg TID PRN Administration muscle spasm Enoxaparin Sodium 40 mg 12/28/18 14:00 12/30/18 18:44 Lovenox SQ 01/27/19 13:59 40 mg Q12@0600,1800 VERONICA Administration Hydromorphone HCl 0.5 mg 12/28/18 09:26 12/30/18 20:31 Dilaudid IV 01/11/19 09:25 0.5 mg Q3H PRN Administration Pain Promethazine HCl 12.5 mg/ 50.5 mls @ 202 mls/hr 12/30/18 17:26 12/30/18 19:02 Sodium Chloride IV 01/29/19 17:25 Infused Q4 PRN Infusion Nausea And Vomiting Heparin Sodium/Dextrose 25,000 units in 500 mls @ 17 mls/hr 12/31/18 02:00 1 12:42 Heparin Sodium/Dextrose IV 01/30/19 01:59 850 units/hr .Q24H VERONICA 17 mls/hr Titration Protocol 850 UNITS/HR Potassium Chloride 40 meq/ 1,020 mls @ 60 mls/hr 12/31/18 01:00 12/31/18 00:56 Dextrose/Sodium Chloride IV 01/30/19 00:59 60 mls/hr .Q17H VERONICA Administration Ioversol 100 ml 12/30/18 23:05 12/30/18 23:06 Optiray 320 100ml IV 01/03/19 23:04 91 ml ONCE PRN Administration Interaction Checking Loperamide HCl 2 mg 12/30/18 19:29 12/31/18 04:56 Imodium PO 01/29/19 19:28 2 mg UD PRN Administration Diarrhea Metoclopramide HCl 5 mg 12/30/18 22:21 12/30/18 22:37 Reglan IV 01/29/19 22:20 5 mg Q6H PRN Administration Nausea Morphine Sulfate 15 mg 12/28/18 11:30 12/31/18 14:09 Ms Contin PO 01/11/19 11:29 Not Given Q12 VERONICA Morphine Sulfate 10 mg 12/28/18 09:26 12/29/18 16:03 Roxanol PO 01/11/19 09:25 10 mg Q4H PRN Administration Pain Ondansetron HCl 4 mg 12/28/18 09:26 12/30/18 13:58 Zofran IV 01/27/19 09:25 4 mg Q6H PRN Administration Nausea Paroxetine HCl 30 mg 12/28/18 09:26 12/31/18 12:38 Paxil PO 01/27/19 09:25 Not Given QAM VERONICA Potassium Chloride 20 meq 12/30/18 09:00 12/31/18 12:37 Klor-Con M20 PO 01/29/19 08:59 Not Given QAM VERONICA Saccharomyces Boulardii 250 mg 12/30/18 09:30 12/31/18 12:37 Florastor PO 01/29/19 09:29 Not Given DAILY VERONICA Tiotropium [place] 1 puffs 12/28/18 09:26 12/31/18 09:00 Spiriva INH 01/27/19 09:25 1 puffs DAILY VERONICA Administration Past Medical History Medical History 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 S/P neoadjuvant modified FOLFOX 6 chemotherapy x 5 -Oxaliplatin induced the liver toxicity, received 5-Fluorouracil leucovorin x 7. Last cycle received on 02/12/2018. S/P right hemicolectomy on 03/23/2017 (by Dr. Cheng). 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 KRAS and BRAF mutation-->negative. 04/2018: -recurrent high-grade neuroendocrine carcinoma involving the retroperitoneal lymph regan region causing right hydronephrosis, S/P percutaneous nephrostomy drainage. -IVC thrombus, pulmonary embolism. - Essential thrombocythemia diagnosed in 2005, JAK2 mutation positive platelet count was over 1 million at that time the diagnosis. She is on hydroxyurea for that." Metastatic disease (Chronic) IVC thrombosis (Chronic) Pulmonary embolism (Chronic) Thrombocytosis (Chronic) Colon cancer (Chronic) S/P right hemicolectomy on 03/23/2017 (by Dr. Cheng). 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 COPD (chronic obstructive pulmonary disease) (Chronic) Past Family History Family History Grandmother (Paternal) , of childbirth No problems noted. Grandfather (Paternal) , of lung cancer at age 7 No problems noted. Father , of protsate cancer No problems noted. Mother , of breas cancer with metastasis to lung and brain No problems noted. Brother Age: 63 Prostate cancer Brother Age: 57 Prostate cancer Sister Age: 50 No problems noted. Daughter Age: 27 No problems noted. Other No pertinent family history Past Surgical History Surgical History H/O rotator cuff surgery (Chronic) History of arthroscopy of left knee (Chronic) S/P removal of right ovary (Chronic) History of partial surgical removal of colon (Chronic) Social History Smoking Status: Former smoker tobacco type: cigarettes Smoking End Date: 1999 Hx Alcohol Use: Yes Alcohol type: beer alcohol intake frequency: a few times a week Hx Substance Use: No substance use type: opiates, painkillers and prescription drug Last Used Substance: Hours (ago) Last Used Substance Other:: Morphine Physical Exam Vital Signs Last Vital Signs Temp 36.4 C L 12/31/18 15:15 Pulse 81 12/31/18 15:15 Resp 18 12/31/18 15:15 BP 121/76 12/31/18 15:15 Pulse Ox 98 12/31/18 15:15 Testing Laboratory Results 12/31/18 05:11 12/31/18 05:11 PT 11.1 Seconds (9.0-12.0) 12/31/18 08:25 INR 1.1 (0.9-1.1) 12/31/18 08:25 APTT 46.3 Seconds (21.0-31.0) H* 12/31/18 10:32 Urine Color Yellow 12/28/18 07:11 Urine Appearance Clear (Clear) 12/28/18 07:11 Urine pH 5.5 (4.5-7.5) 12/28/18 07:11 Ur Specific [place] 1.020 (1.000-1.030) 12/28/18 07:11 Urine Protein Trace (Negative) H 12/28/18 07:11 Urine Glucose (UA) Negative (Negative) 12/28/18 07:11 Urine Ketones 3+ (Negative) H 12/28/18 07:11 Urine Nitrite Negative (Negative) 12/28/18 07:11 Ur Leukocyte Esterase Negative (Negative) 12/28/18 07:11 Urine RBC 0-4 /hpf (0-4) 12/28/18 07:11 Urine WBC 5-10 /hpf (0-5) H 12/28/18 07:11 Ur Epithelial Cells 10-20 /lpf (0-5) H 12/28/18 07:11 Blood Type A Positive 12/30/18 23:24 Antibody Screen NEGATIVE 12/30/18 23:24 12/28/18 07:11 Urine Culture - Final Urine,Clean Catch More than three types of organisms present, all moderate counts mixed probable skin mechelle. No further identifications or sensitivities to follow.
--- NOTE | 2018-12-31 16:08 | History & Physical Bridge Note ---
Date of Service December 31, 2018 History & Physical Bridge Note I have examined the patient, reviewed the History & Physical and in the interval since the performance of the History & Physical I have noted the following changes of clinical significance: no changes noted
[2018-12-31] MEDS ORDERED: CIPROFLOXACIN 400MG / 200ML D5W IV ONE (16:11)
[2018-12-31] MEDS ORDERED: ONDANSETRON INJ 2 MG/ML 2 ML VIAL IV PRN (16:20)
[2018-12-31] MEDS ORDERED: ePHEDrine sulfate 50 MG/ML AMP IV PRN (16:20)
[2018-12-31] MEDS ORDERED: ATROPINE SULFATE 0.1 MG/ML 10ML SYR IV PRN (16:20)
[2018-12-31] MEDS ORDERED: fentaNYL citrate 100 MCG/2 ML VIAL IV PRN (16:20)
[2018-12-31] MEDS ORDERED: PHENYLEPHRINE HCL 10 MG/ML VIAL ONE (16:25)
[2018-12-31] MEDS ORDERED: PROPOFOL IV EMULSION 10 MG/ML 20 ML VIAL IV ONE (16:25)
[2018-12-31] MEDS ORDERED: SUCCINYLCHOLINE 100MG/5ML SYR ONE (16:25)
[2018-12-31] MEDS ORDERED: LARYING-O-JET KIT (LTA) ONE (16:25)
[2018-12-31] MEDS ORDERED: ONDANSETRON INJ 2 MG/ML 2 ML VIAL ONE (16:25)
[2018-12-31] MEDS ORDERED: LIDOCAINE HCL 2% 2 ML VIAL/AMP(20MG/ML) INFIL ONE (16:25)
[2018-12-31] MEDS ORDERED: ALBUTEROL HFA INHALER 8.5 GM ONE (17:09)
--- NOTE | 2018-12-31 17:37 | GI REPORT ---
Patient Name: Guadalupe Araujo Procedure Date: 12/31/2018 4:36 PM Date of : 1955 Admit Type: Inpatient Age: 63 Gender: Female Attending MD: Sathish Rivero MD Procedure: Colonoscopy Providers: Sathish Rivero MD Referring MD: Referred Self Indications: Abnormal CT of the GI tract, Follow-up of colonic obstruction Medicines: See the Anesthesia note for documentation of the administered medications Complications: No immediate complications. Estimated Blood Loss: Estimated blood loss: none. Procedure: Pre-Anesthesia Assessment: - ASA Grade Assessment: IV - A patient with severe systemic disease that is a constant threat to life. After I obtained informed consent, the scope was passed under direct vision. Throughout the procedure, the patient's blood pressure, pulse, and oxygen saturations were monitored continuously. The Endoscope was introduced through the anus and advanced to the ileocolonic anastomosis. The scope was introduced through the and advanced to. The colonoscopy was performed without difficulty. The patient tolerated the procedure well. The quality of the bowel preparation was adequate. Findings: Hemorrhoids were found on perianal exam. The ultrathin upper scope was used for the entire exam. There was stool in the rectum. The previously placed colonic stent was well placed over the tumor in the recto sigmoid colon. There was mild tumor ingrowth, most prominent along the proximal edge of the stent; however, there was no evidence of colonic obstruction. The stent was widely patent. The remainder of the colon and the ileocolonic anastamosis was widely patent. There was stool throughout the colon. Impression: Widely patent colonic stent in rectosigmoid colon. Recommendation: - Discharge patient to floor. Clamp NGT overnight. Repeat obstructive series in am. Jordon Ca MD 12/31/2018 5:36:50 PM This report has been signed electronically. Note Initiated On: 12/31/2018 4:36 PM Number of Addenda: 0 I attest to the content of the Intraoperative Record and orders documented therein, exceptions below {[id number]}
--- NOTE | 2018-12-31 18:09 | Hospitalist Progress Note ---
Date of Service December 31, 2018 Assessment & Plan (1) Neuroendocrine carcinoma metastatic to intra-abdominal lymph node: Small Bowel obstruction Due to metastatic malignancy with carcinomatosis Developed worsening of abdominal pain, nausea vomiting-Last night CT abdomen pelvis shows: 1. Mildly progressive small bowel obstructive change and gastric distention. 2. Similar basilar nodularity and metastatic changes to the liver. 3. Potential developing carcinomatosis including presacral soft tissue prominence Patient started on NG suction,With large amount of bilious drainage, leading to improvement of symptoms, surgery consulted, appreciate input, very poor prognosis, secondary to metastatic malignancy poor candidate for surgery, GI consulted to assess for sigmoid stent Status post colonoscopy today: Shows widely patent sigmoid stent, with progression of tumor growth Patient continue with bowel rest, Ordered for TPN To be started tomorrow Nausea vomiting Secondary to bowel obstruction Management as outlined above Metastatic neuroendocrine carcinoma Metastatic neuro endocrine tumor of cecum and pancreas with widespread metastatic liver/lung/lymph nodes/inferior vena cava/vascular structures/ureter Status post adjuvant chemo treatment surgery, radiation treatment with continued progression of malignancy Recent admission with chronic obstruction secondary to metastatic disease status post sigmoid colon stent placement Patient has been getting immune therapy at [facility] hematology oncology under care of Dr. Chung Recent CT abdomen and pelvis/CT chest shows progression of disease Develop worsening of abdominal pain nausea vomiting overnight, CT abdomen pelvis shows bowel obstruction Management as outlined above Patient is scheduled to have follow-up with hematology oncology at [facility] next 01/01/2019-for second opinion Patient will need continued hospital stay for bowel obstruction Appointment rescheduled for January Will have copy of medical records including latest CT scan and CD copy prior to discharge for continuation of care Patient's overall prognosis remains extremely poor Dehydration -secondary to metastatic malignancy Symptom improved with IV fluids, Very poor prognosis Severe protein calorie malnutrition Significant weight loss, BMI 17 secondary to widespread metastatic malignancy recent bowel obstruction, ongoing secondary diarrhea secondary to neuroendocrine tumor Very poor prognosis Nutrition consult requested for diet supplement Patient will be started on TPN tomorrow Hypokalemia Secondary to ongoing GI loss-diarrhea/episode of vomiting Added IV potassium supplement to maintenance fluids Follow BMP History of DVT/PE with ongoing Lovenox treatment Lovenox therapeutic dose continued Dose adjusted based on factor X a level Appreciate input from pharmacy CODE STATUS : FULL CODE needs to be re addressed as pt's over all prognosis remains very poor will be non favorable out come with aggressive resuscitation attempt :CPR/intubation Disposition: Continue hospital stay for bowel obstruction Subjective Status post colonoscopy earlier, showed widely patent sigmoid stent On NG tube, at present on clamp, Patient reports of feeling much better now, does not have abdominal pain or discomfort, Patient to schedule MS Contin 50 mg tablet at night Feels tablet got stuck on her throat, Patient is encouraged to take sips of water, Will order To hold p.o. meds Okay for sips of water and ice chips Will be started with TPN tomorrow to allow bowel rest-Appreciate Dietary input Pharmacy consulted for TPN Patient's appointment for [facility] rescheduled for January 15 Physical Exam Constitutional: + thin and + cachectic; no acute distress Eyes: + anicteric sclerae ENMT: Nose: no external nose abnormality (NG tube present draining dark bilious gastric fluid) Neck: trachea midline, no thyromegaly Respiratory: normal respiratory effort, lungs clear to auscultation Cardiovascular: RRR, no murmur, no edema Gastrointestinal (Abdomen): Percussion/Palpation: abdomen soft; abdomen nontender Musculoskeletal: no cyanosis or clubbing, extremities motor strength 5/5 Skin: no rashes, warm and dry Neurologic: PERRL, EOMI, accommodation nl, no face palsy, no dysarthria Psychiatric: A+Ox3, euthymic affect Results & Data Vital Signs (Past 12 Hours) Vital Signs Temp Pulse Pulse Resp BP BP Pulse Ox 12/31/18 17:55 80 17 145/84 H 100 12/31/18 17:45 81 16 139/80 100 12/31/18 17:38 36.7 C 85 20 139/80 100 12/31/18 16:40 36.6 C 86 18 128/82 91 12/31/18 15:15 36.4 C L 81 18 121/76 98 12/31/18 07:15 36.6 C 80 20 118/76 95
[2018-12-31] MEDS ORDERED: TPN/PPN CONSULT PHARMACY PRN (18:11)
--- NOTE | 2018-12-31 18:40 | Anesthesiology Progress Note ---
Date of Service December 31, 2018 Anesthesia Post Procedure Vital Signs Vital Signs: Temp Pulse Pulse Resp BP BP Pulse Ox 12/31/18 18:27 36.4 C L 76 18 133/80 99 12/31/18 18:15 37.0 C 74 18 140/84 100 12/31/18 18:05 84 20 142/86 H 100 12/31/18 17:55 80 17 145/84 H 100 12/31/18 17:45 81 16 139/80 100 12/31/18 17:38 36.7 C 85 20 139/80 100 12/31/18 16:40 36.6 C 86 18 128/82 91 12/31/18 15:15 36.4 C L 81 18 121/76 98 12/31/18 07:15 36.6 C 80 20 118/76 95 12/31/18 04:18 36.4 C L 81 18 130/83 93 12/30/18 23:28 36.6 C 91 H 20 122/78 93 Pain Intensity Left Flank: Pain Intensity: 5 Back: Pain Intensity: 7 Generalized: Pain Intensity: 5 Transfer of Care Handoff Completed per policy Notes Mental Status: alert / awake / arousable and participated in evaluation Patient Amnestic to Procedure: Yes Nausea / Vomiting: adequately controlled Pain: adequately controlled Airway Patency, RR, SpO2: stable & adequate BP & HR: stable & adequate Hydration State: stable & adequate Anesthetic Complications: no major complications apparent and Pt Satisfied with anesthetic care
--- NOTE | 2018-12-31 19:18 | Fluoroscopy Report ---
FL KUB CLINICAL HISTORY: COLONIC STENT PLACEMENT. NG tube placement. COMPARISON STUDY: Abdomen and pelvis CT 12/30/2018. FLUOROSCOPY TIME: 1 second. FINDINGS: A single fluoroscopic spot image of the left upper quadrant. Nasogastric tube terminates be low the diaphragm and appears to be within the fundus of the stomach. IMPRESSION: Tip of the nasogastric tube terminates in the fundus of the stomach. Electronically signed by: Rush Matthews M.D. 12/31/2018 7:16 PM
[2019-01-01] MEDS: HEPARIN SODIUM/DEXTROSE 25,000 UNITS/500 ML BAG IV SCH ×3 (01:29→13:55)
[2019-01-01] MEDS ORDERED: CIPROFLOXACIN 400 MG/200 ML BAG IV SCH (06:00)
[2019-01-01 06:10] LABS: Basophils # (auto) 0.02 K/uL (0-0.2); Basophils % (auto) 0.3 %; Eosinophils # (auto) 0.17 K/uL (0-0.5); Eosinophils % (auto) 2.9 %; Hematocrit (blood only) 29.8 % (37-47); Hemoglobin 9.7 g/dL (12.0-16.0); Immature Granulocytes # (auto) 0.01 K/uL (0.00-0.02); Immature Granulocytes % (auto) 0.2 %; Lymphocytes # (auto) 0.55 K/uL (1.2-3.4); Lymphocytes % (auto) 9.4 %; Mean Corpuscular Hemoglobin 28.9 pg (25-34); Mean Corpuscular Hgb Conc 32.6 g/dL (32-36); Mean Corpuscular Volume 88.7 fL (80-100); Mean Platelet Volume 9.1 fL (7.4-10.4); Monocytes % (auto) 13.7 %; Neutrophils # (auto) 4.28 K/uL (1.4-6.5); Neutrophils % (auto) 73.5 %; Platelet Count 420 K/uL (130-400); RDW Coefficient of Variation 16.3 % (11.5-14.5); RDW Standard Deviation 52.8 fL (36.4-46.3); Red Blood Count 3.36 M/uL (4.2-5.4); White Blood Count 5.83 K/uL (4.8-10.8)
[2019-01-01 06:27] LABS: Partial Thromboplastin Ratio 1.7; Partial Thromboplastin Time 44.9 Seconds (21.0-31.0)
[2019-01-01] MEDS ORDERED: HEPARIN IV BOLUS 2,000 UNITS in SYRINGE 0 ML IV STA (06:36)
[2019-01-01 06:44] LABS: Albumin Level 2.3 gm/dl (3.4-5.0); BUN Creatinine Ratio 6.4 (10-20); Creatinine Clr Calc Pharmacy 67.9 ml/min; Est GFR (African American) 111.6; Est GFR (Non-African American) 96.3; Magnesium 1.9 mg/dl (1.8-2.4); Potassium 3.7 mmol/L (3.5-5.1)
[2019-01-01 06:47] LABS: Albumin Globulin Ratio 0.8 (0.9-2); Bilirubin,Total 0.3 mg/dl (0.2-1); Globulin 2.8 gm/dl (2.5-4.0); Phosphorus 3.1 mg/dl (2.5-4.9); Total Protein 5.1 gm/dl (6.4-8.2)
[2019-01-01] MEDS: BUDESONIDE/FORMOTEROL FUMARATE 160/4.5 60 PUFFS/INHALER INH SCH (08:21)
[2019-01-01] MEDS: CIPROFLOXACIN 400 MG/200 ML BAG IV SCH ×2 (08:21→20:31)
[2019-01-01] MEDS: TIOTROPIUM BROMIDE 5 PUFF/90 MCG INH INH SCH (08:22)
--- NOTE | 2019-01-01 09:51 | Gastroenterology Progress Note ---
Date of Service January 01, 2019 Assessment & Plan (1) Metastatic colon cancer in female: (2) Large bowel obstruction: Pt w hx of neuroendocrine cecal, appendiceal carcinoma s/p R hemicolectomy in 2017, chemoradiation. Recurrence of tumor noted w extension to liver, retroperitoneal area, involving IVC, and surrounding lymph nodes. Had tumor obstruction of sigmoid region in October s/p colonic stent placement on 10/17/18. Currently presenting w partial obstruction symptoms again and CT imaging studies showed progression of mass in proximal aspect of stent. Colonoscopy performed 12/31 w evidence of patent stent and also remainder of colon, including ileocolonic anastomosis. On exam today abd soft, non tender, little bowel sounds on RUQ area. She is passing little flatus but no BMs this AM yet - Keep NGT clamped, ok for ice chips and sips - Obtain abd obstructive series this AM - Reviewed w pt diet to follow after placement of enteral stent. She admitted to recently had some steak and salad. So wonder if it may contribute to partial obstruction? I will print out diet guidelines and give it to her to follow. She may also try Miralax 17g (1 capful) on daily basis to keep stools soft and bowels moving daily. Supervising Physician Co-Signing Physician Notes I have personally seen and examined the patient with DEJUAN Pham. Her note reflects my exam and finding. I agree with her impression and plan. Try slowly advancing diet with NGT clamped. Picture c/w progressive disease. I recommended the patient's daughter; at bedside, get a colonoscopy at her earliest convenience. Aneesh Post M.D. Subjective Pt underwent colonoscopy yesterday - thought noted mild tumor ingrowth, colonic stent widely patent, remainder of colon and ileocolonic anastomosis also widely patent. Stool throughout colon NGT clamped last night. She did have some loose BMs last night after colonoscopy but non this AM yet. She denies feeling nauseous or bloated. Passing little flatus Review of Systems Review of Systems: All systems reviewed & are unremarkable except as noted in HPI & below Physical Exam Constitutional: + thin, well groomed, cooperative and comfortable Eyes: PERRL, conjunctivae normal, anicteric sclerae ENMT: external ear and nose normal, oropharynx normal Respiratory: normal respiratory effort, lungs clear to auscultation Cardiovascular: RRR, no murmur, no edema Gastrointestinal (Abdomen): Inspection/Auscultation: + hypoactive bowel sounds Percussion/Palpation: abdomen soft; abdomen nontender Skin: no rashes, warm and dry no jaundice Neurologic: Motor/Sensory: no asterixis Psychiatric: A+Ox3, euthymic affect Lymphatic: no lymphedema Results & Data Vital Signs (Past 12 Hours) Vital Signs Temp Pulse Pulse Resp BP Pulse Ox 01/01/19 07:19 86 16 115/62 95 01/01/19 04:00 36.8 C 82 18 116/67 95 12/31/18 22:59 36.8 C 89 19 118/76 93
--- NOTE | 2019-01-01 11:07 | XRay Report ---
PA CHEST RADIOGRAPH AND UPRIGHT AND SUPINE AP RADIOGRAPHS OF THE ABDOMEN CLINICAL HISTORY: Abdominal pain. History of bowel obstruction. COMPARISON STUDY: Chest CT December 23, 2018. CT of the abdomen and pelvis December 30, 2018. FINDINGS: Tip of nasogastric tube is within the body of the stomach. A right internal jugular Infuse -a-Port is in place. Right nephrostomy catheter is unchanged in position. No consolidation is noted. Small pulmonary nodules are better depicted on PET/CT of December 23, 2018. There is no evidence for p ulmonary edema. Cardiac size is normal. Mediastinal contours are normal. No free air is present. A di stal colonic stent is in place. Bowel anastomosis is noted. Several air-fluid levels are noted on the upright projection. Small bowel dilatation is suspected although suboptimally assessed as the loops are likely fluid-filled. Gastric distention has resolved. IMPRESSION: 1. No free air. 2. Interval improvement in gastric distention following nasogastric tube placement. Persistent but i mproved small bowel dilatation which is difficult to assess by radiography as the loops are largely f luid-filled. 3. No acute cardiopulmonary findings. Electronically signed by: Yuri Ojeda M.D. 01/01/2019 11:05 AM
[2019-01-01] MEDS: POTASSIUM CHLORIDE 40 MEQ in D5W AND NSS 1,000 ML IV SCH ×2 (11:31→17:42)
--- NOTE | 2019-01-01 11:34 | Pharmacy Report ---
Pharmacy PN Initial Consult - Date of Service January 01, 2019 - Scope Pharmacy has been consulted to manage parenteral nutrition orders and order appropriate labs. As part of the Nutrition Support Team guidelines, pharmacy will work in conjunction with dietary when determining the patients caloric needs. - Subjective The patient is a 63 year old F admitted on 12/28/18 07:04 for ABD PAIN. Patient is to receive parenteral nutrition for severe protein/calorie malnutrition 2nd metastatic colon CA and bowel obstruction - Objective Height: 5 ft 1 in Weight: 46.6 kg Diet: NPO Vascular Access:: Implanted port Intake & Output (Last 24Hrs): Intake & Output 12/30/18 12/31/18 01/01/19 01/02/19 06:59 06:59 06:59 06:59 Intake Total 2157.667 / 2157.667 3407.167 / 3407.167 1856.601 / 1856.601 405.800 / 405.800 Output Total 425 / 425 3150 / 3150 1089 / 1089 Balance 1732.667 / 1732.667 257.167 / 257.167 767.601 / 767.601 405.800 / 405.800 Weight 47 kg 46.6 kg Laboratory Data (Last 24 Hrs):: 01/01/19 05:22 Sodium 139 Potassium 3.7 Chloride 106 Carbon Dioxide 28 BUN 4 L Creatinine 0.64 Glucose 94 Calcium 8.0 L Phosphorus 3.1 Magnesium 1.9 Total Bilirubin 0.3 AST 20 ALT 11 L Alkaline Phosphatase 137 H Albumin 2.3 L Nutrition Assessment:: Please refer to the Notes section of the EMR for the most recent workers compensation adjuster note. - Assessment * Patient is at high risk for re-feeding * Will start at very low dextrose content to minimize risk * Will give more K than is typical for initial bag (note - patient received ~70 mEq KCL via rider x1 and LVP yesterday and K only increased from 3.5 to 3.7) * Will slightly increase magnesium * Hesitant to be too aggressive with phos, especially in such a small patient * Will add an additional electrolyte check this PM about 6 hours after TPN initiation to assess for significant changes in electrolytes * No repletion of electrolytes needed today prior to TPN initiation. Patient may require tomorrow * Per Dr. Doyle * OK to use implanted port * Will discontinue LVP @ 60 mL/hr when TPN starts * Volume of TPN will be fixed at 1440 mL (provides 60 mL/hr) - Plan For day 1 of PN administration, the following will be ordered: Macronutrients Amino acids 40 grams/day Dextrose 100 grams/day Lipids 25 grams/day Micronutrients Sodium chloride 100 mEq Potassium phosphate 21 mMol Potassium acetate 40 mEq Magnesium sulfate 12.18 mEq Calcium gluconate 4.65 mEq Multivitamins 10 mL Trace Elements 1 mL Folic acid 1 mg Thiamine 100 mg Famotidine 20 mg Total volume 1440 mL to be infused over 24 hrs will provide 750 kcal/day Labs to be ordered per PN order protocol Pharmacy will follow and adjust parenteral nutrition orders on a daily basis. Thank you.
[2019-01-01] MEDS ORDERED: TPN/PPN CONSULT PHARMACY STA (12:46)
[2019-01-01] MEDS ORDERED: DEXTROSE 10% 1,000 ML IV PRN (13:00)
[2019-01-01 13:41] LABS: Partial Thromboplastin Ratio 2.3
[2019-01-01 13:51] LABS: Partial Thromboplastin Time 61.1 Seconds (21.0-31.0)
[2019-01-01] MEDS ORDERED: CENTRAL PN IV SCH (16:00)
--- NOTE | 2019-01-01 16:52 | Surgery Progress Note ---
Date of Service January 01, 2019 Assessment & Plan (1) Metastatic colon cancer in female: Guadalupe is a very pleasant 63 year-old female with history significant for recurrent neuroendocrine cecal appendiceal carcinoma, status post small bowel bypass originally to transverse colon (07/2016)followed by chemoradiation (02/2017) and then right hemicolectomy (03/2017). History of large bowel obstruction in October , status post colonic stent placement. She currently is receiving immunotherapy by Dr. Chung every other week. She recently on 12/23/2018 had a CAT scan of the abdomen and pelvis and also chest CT, which showed progression of the disease and she has appointment at [facility] for second opinion. CT scan of abdomen and pelvis on 12/28/2018 showed narrowing of the proximal colonic stent and now with findings of bowel obstructive change on CT scan. -Colonoscopy yesterday 12/31/18 showed patent stent - Abdominal series today showing improved small bowel distention Plan: Again would want to avoid any surgical intervention given extent of disease. Stent is patent. Would continue current management and hopefully can increase diet slowly and remove NGT possibly tomorrow. She has appointment at [facility] on 01/15/19 for second opinion She should adhere to strict diet and take Miralax daily to avoid any constipation and keep stools soft as per GI recommendations. Continue medical management Our services signing off, thank you for allowing us to see this patient in consultation. please call with any questions or concerns Dr. Espitia has seen patient, agrees with above. Subjective feeling good today NGT has been clamped and no n/v passing gas but no bowel movement today have some ice chips and sips currently Physical Exam Constitutional: WD/WN, vitals as above + thin; no acute distress Skin: no rashes, warm and dry Psychiatric: A+Ox3, euthymic affect Results & Data Vital Signs (Past 12 Hours) Vital Signs Temp Pulse Pulse Resp BP BP Pulse Ox 01/01/19 16:34 36.3 C L 83 18 122/81 96 01/01/19 07:19 86 16 115/62 95 Laboratory Results 01/01/19 01/01/19 01/01/19 Range/Units 13:11 05:22 05:22 WBC 5.83 (4.8-10.8) K/uL RBC 3.36 L (4.2-5.4) M/uL Hgb 9.7 L (12.0-16.0) g/dL Hct 29.8 L (37-47) % MCV 88.7 (80-100) fL MCH 28.9 (25-34) pg MCHC 32.6 (32-36) g/dL RDW Std Deviation 52.8 H (36.4-46.3) fL RDW Coeff of Ysabel 16.3 H (11.5-14.5) % Plt Count 420 H (130-400) K/uL MPV 9.1 (7.4-10.4) fL Immature Gran % (Auto) 0.2 % Neut % (Auto) 73.5 % Lymph % (Auto) 9.4 % [place] % (Auto) 13.7 % Eos % (Auto) 2.9 % Baso % (Auto) 0.3 % Immature Gran # (Auto) 0.01 (0.00-0.02) K/uL Neut # (Auto) 4.28 (1.4-6.5) K/uL Lymph # (Auto) 0.55 L (1.2-3.4) K/uL [place] # (Auto) 0.80 H (0.11-0.59) K/uL Eos # (Auto) 0.17 (0-0.5) K/uL Baso # (Auto) 0.02 (0-0.2) K/uL APTT 61.1 H* (21.0-31.0) Seconds PTT Ratio 2.3 Sodium 139 (136-145) mmol/L Potassium 3.7 (3.5-5.1) mmol/L Chloride 106 (98-107) mmol/L Carbon Dioxide 28 (21-32) mmol/L Anion Gap 5.0 (3-11) BUN 4 L (7-18) mg/dl Creatinine 0.64 (0.6-1.2) mg/dl Est Cr Clr Drug Dosing 67.9 ml/min Est GFR ( Amer) 111.6 Est GFR (Non-Af Amer) 96.3 BUN/Creatinine Ratio 6.4 L (10-20) Glucose 94 (70-99) mg/dl Calcium 8.0 L (8.5-10.1) mg/dl Phosphorus 3.1 (2.5-4.9) mg/dl Magnesium 1.9 (1.8-2.4) mg/dl Total Bilirubin 0.3 (0.2-1) mg/dl AST 20 (15-37) U/L ALT 11 L (12-78) U/L Alkaline Phosphatase 137 H (45-117) U/L Total Protein 5.1 L (6.4-8.2) gm/dl Albumin 2.3 L (3.4-5.0) gm/dl Globulin 2.8 (2.5-4.0) gm/dl Albumin/Globulin Ratio 0.8 L (0.9-2) 01/01/19 Range/Units 05:22 WBC (4.8-10.8) K/uL RBC (4.2-5.4) M/uL Hgb (12.0-16.0) g/dL Hct (37-47) % MCV (80-100) fL MCH (25-34) pg MCHC (32-36) g/dL RDW Std Deviation (36.4-46.3) fL RDW Coeff of Ysabel (11.5-14.5) % Plt Count (130-400) K/uL MPV (7.4-10.4) fL Immature Gran % (Auto) % Neut % (Auto) % Lymph % (Auto) % [place] % (Auto) % Eos % (Auto) % Baso % (Auto) % Immature Gran # (Auto) (0.00-0.02) K/uL Neut # (Auto) (1.4-6.5) K/uL Lymph # (Auto) (1.2-3.4) K/uL [place] # (Auto) (0.11-0.59) K/uL Eos # (Auto) (0-0.5) K/uL Baso # (Auto) (0-0.2) K/uL APTT 44.9 H (21.0-31.0) Seconds PTT Ratio 1.7 Sodium (136-145) mmol/L Potassium (3.5-5.1) mmol/L Chloride (98-107) mmol/L Carbon Dioxide (21-32) mmol/L Anion Gap (3-11) BUN (7-18) mg/dl Creatinine (0.6-1.2) mg/dl Est Cr Clr Drug Dosing ml/min Est GFR ( Amer) Est GFR (Non-Af Amer) BUN/Creatinine Ratio (10-20) Glucose (70-99) mg/dl Calcium (8.5-10.1) mg/dl Phosphorus (2.5-4.9) mg/dl Magnesium (1.8-2.4) mg/dl Total Bilirubin (0.2-1) mg/dl AST (15-37) U/L ALT (12-78) U/L Alkaline Phosphatase (45-117) U/L Total Protein (6.4-8.2) gm/dl Albumin (3.4-5.0) gm/dl Globulin (2.5-4.0) gm/dl Albumin/Globulin Ratio (0.9-2)
[2019-01-01] MEDS: ENOXAPARIN INJ 60 MG/0.6 ML SYR SQ SCH (17:44)
--- NOTE | 2019-01-01 19:07 | Hospitalist Progress Note ---
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 Almaraz notes: Due to metastatic malignancy with carcinomatosis CT abdomen pelvis shows: 1. Mildly progressive small bowel obstructive change and gastric distention. 2. Similar basilar nodularity and metastatic changes to the liver. 3. Potential developing carcinomatosis including presacral soft tissue prominence Patient started on NG suction,With large amount of bilious drainage, leading to improvement of symptoms, surgery consulted, appreciate input, very poor prognosis, secondary to metasta tic malignancy poor candidate for surgery, Status post colonoscopy: Shows widely patent sigmoid stent, with progression of tumor growth -- advance diet to clear liquids per GI monitor Nausea vomiting Secondary to bowel obstruction Management as outlined above Metastatic neuroendocrine carcinoma per Dr. Almaraz notes: Metastatic neuro endocrine tumor of cecum and pancreas with widespread metastatic liver/lung/lymph nodes/inferior vena cava/vascular structures/ureter Status post adjuvant chemo treatment surgery, radiation treatment with continued progression of malignancy Recent admission with chronic obstruction secondary to metastatic disease status post sigmoid colon stent placement Patient has been getting immune therapy at [facility] hematology oncology under care of Dr. Chung Recent CT abdomen and pelvis/CT chest shows progression of disease Develop worsening of abdominal pain nausea vomiting overnight, CT abdomen pelvis shows bowel obstruction Management as outlined above Patient is scheduled to have follow-up with hematology oncology at [facility] next 01/01/2019-for second opinion Appointment rescheduled for January Will have copy of medical records including latest CT scan and CD copy prior to discharge for continuation of care Dehydration -secondary to metastatic malignancy Symptom improved with IV fluids Severe protein calorie malnutrition Significant weight loss, BMI 17 secondary to widespread metastatic malignancy recent bowel obstruction, ongoing secondary diarrhea secondary to neuroendocrine tumor Nutrition consult requested for diet supplement Patient will be started on TPN tomorrow -- will discuss with GI Hypokalemia Secondary to ongoing GI loss-diarrhea/episode of vomiting Added IV potassium supplement to maintenance fluids improving History of DVT/PE with ongoing Lovenox treatment Lovenox therapeutic dose continued Dose adjusted based on factor X a level Appreciate input from pharmacy CODE STATUS : FULL CODE Disposition: Continue hospital stay for bowel obstruction Subjective ff up for bowel obstruction seen resting in bed, comfortable states she feels improved today no nausea/vomiting, abdominal pain no flatus or BM yet denies other symptoms Review of Systems Review of Systems: All systems reviewed & are unremarkable except as noted in HPI & below Physical Exam Physical Exam: General- oriented x 3, not in distress, speaks in sentences with no effort or accessory muscle use Head- atraumatic Eyes- PERRL, EOMI, anicteric ENT- oropharynx clear Neck- supple, no JVD, no adenopathy, no thyromegaly; carotids +2/2, no bruits appreciated Lungs- clear to auscultation bilaterally, no rales/wheezes Heart- normal rate, regular rhythm; no murmur, no gallop, no rub appreciated Abdomen- normal bowel sounds, nondistended, soft, nontender, no masses or hepatosplenomegaly Nephrostomy tube, left- draining clear, light yellow urine Extremities- no pretibial edema, no calf tenderness; peripheral pulses intact Neuro- alert, oriented x 3; CN 2-12 grossly intact; motor 5/5 bilaterally;sensation 100% on all extremities; no other gross focal neurologic deficits Skin- warm & dry Results & Data Vital Signs (Past 12 Hours) Vital Signs Temp Pulse Pulse Resp BP BP Pulse Ox 01/01/19 16:34 36.3 C L 83 18 122/81 96 01/01/19 07:19 86 16 115/62 95 Laboratory Results Laboratory Results - last 24 hr 01/01/19 01/01/19 01/01/19 05:22 05:22 05:22 WBC 5.83 RBC 3.36 L Hgb 9.7 L Hct 29.8 L MCV 88.7 MCH 28.9 MCHC 32.6 RDW Std Deviation 52.8 H RDW Coeff of Ysabel 16.3 H Plt Count 420 H MPV 9.1 Immature Gran % (Auto) 0.2 Neut % (Auto) 73.5 Lymph % (Auto) 9.4 [place] % (Auto) 13.7 Eos % (Auto) 2.9 Baso % (Auto) 0.3 Immature Gran # (Auto) 0.01 Neut # (Auto) 4.28 Lymph # (Auto) 0.55 L [place] # (Auto) 0.80 H Eos # (Auto) 0.17 Baso # (Auto) 0.02 APTT 44.9 H PTT Ratio 1.7 Sodium 139 Potassium 3.7 Chloride 106 Carbon Dioxide 28 Anion Gap 5.0 BUN 4 L Creatinine 0.64 Est Cr Clr Drug Dosing 67.9 Est GFR ( Amer) 111.6 Est GFR (Non-Af Amer) 96.3 BUN/Creatinine Ratio 6.4 L Glucose 94 Calcium 8.0 L Phosphorus 3.1 Magnesium 1.9 Total Bilirubin 0.3 AST 20 ALT 11 L Alkaline Phosphatase 137 H Total Protein 5.1 L Albumin 2.3 L Globulin 2.8 Albumin/Globulin Ratio 0.8 L 01/01/19 13:11 WBC RBC Hgb Hct MCV MCH MCHC RDW Std Deviation RDW Coeff of Ysabel Plt Count MPV Immature Gran % (Auto) Neut % (Auto) Lymph % (Auto) [place] % (Auto) Eos % (Auto) Baso % (Auto) Immature Gran # (Auto) Neut # (Auto) Lymph # (Auto) [place] # (Auto) Eos # (Auto) Baso # (Auto) APTT 61.1 H* PTT Ratio 2.3 Sodium Potassium Chloride Carbon Dioxide Anion Gap BUN Creatinine Est Cr Clr Drug Dosing Est GFR ( Amer) Est GFR (Non-Af Amer) BUN/Creatinine Ratio Glucose Calcium Phosphorus Magnesium Total Bilirubin AST ALT Alkaline Phosphatase Total Protein Albumin Globulin Albumin/Globulin Ratio
[2019-01-01] MEDS: HYDROmorphone INJ 0.5 MG/0.5 ML SYR IV PRN (20:29)
[2019-01-01 22:41] LABS: BUN Creatinine Ratio 6.7 (10-20); Calcium 7.7 mg/dl (8.5-10.1); Creatinine Clr Calc Pharmacy 67.9 ml/min; Est GFR (African American) 111.6; Est GFR (Non-African American) 96.3; Magnesium 1.7 mg/dl (1.8-2.4); Potassium 4.1 mmol/L (3.5-5.1)
[2019-01-01 22:42] LABS: Phosphorus 2.5 mg/dl (2.5-4.9)
[2019-01-02] MEDS: ENOXAPARIN INJ 60 MG/0.6 ML SYR SQ SCH ×2 (05:15→18:09)
[2019-01-02 06:21] LABS: Partial Thromboplastin Ratio 1.2; Partial Thromboplastin Time 32.9 Seconds (21.0-31.0)
[2019-01-02 06:38] LABS: BUN Creatinine Ratio 5.6 (10-20); Calcium 8.4 mg/dl (8.5-10.1); Creatinine Clr Calc Pharmacy 63.9 ml/min; Est GFR (African American) 109.4; Est GFR (Non-African American) 94.4; Magnesium 1.8 mg/dl (1.8-2.4); Potassium 4.4 mmol/L (3.5-5.1)
[2019-01-02 06:39] LABS: Phosphorus 2.9 mg/dl (2.5-4.9)
[2019-01-02] MEDS: CIPROFLOXACIN 400 MG/200 ML BAG IV SCH ×2 (09:05→19:29)
[2019-01-02] MEDS: BUDESONIDE/FORMOTEROL FUMARATE 160/4.5 60 PUFFS/INHALER INH SCH (09:05)
[2019-01-02] MEDS: TIOTROPIUM BROMIDE 5 PUFF/90 MCG INH INH SCH (09:05)
[2019-01-02] MEDS: POTASSIUM CHLORIDE 40 MEQ in D5W AND NSS 1,000 ML IV SCH (10:14)
[2019-01-02] MEDS ORDERED: D5W AND NSS 1,000 ML IV SCH (15:34)
[2019-01-02] MEDS ORDERED: TPN/PPN CONSULT PHARMACY PRN (16:06)
[2019-01-02] MEDS ORDERED: DEXTROSE 10% 1,000 ML IV PRN (16:10)
[2019-01-02] MEDS ORDERED: CENTRAL PN IV SCH (17:00)
[2019-01-02] MEDS: PARoxetine HCl 20 MG TAB PO SCH (18:32)
--- NOTE | 2019-01-02 19:23 | XRay Report ---
XR chest 1V portable CLINICAL HISTORY: shortness of breath COMPARISON STUDY: Chest CT December 23, 2018. Chest radiograph January 01, 2019. FINDINGS: Lung volumes are normal. Lungs are clear. There is no pneumothorax. Cardiac size is normal. Mediastinal contours are normal. There is no evidence for pulmonary edema. A right internal jugular [id number] and right nephrostomy are noted. Pulmonary nodules are better depicted on chest CT of O ct2018. A trace right pleural effusion is present. IMPRESSION: Trace right pleural effusion. Electronically signed by: Yuri Ojeda M.D. 01/02/2019 7:22 PM
[2019-01-02] MEDS: MoRPHine SULFATE CR 15 MG TABCR PO SCH (21:01)
--- NOTE | 2019-01-02 21:22 | Hospitalist Progress Note ---
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 Almaraz notes: Due to metastatic malignancy with carcinomatosis CT abdomen pelvis shows: 1. Mildly progressive small bowel obstructive change and gastric distention. 2. Similar basilar nodularity and metastatic changes to the liver. 3. Potential developing carcinomatosis including presacral soft tissue prominence Patient started on NG suction,With large amount of bilious drainage, leading to improvement of symptoms, surgery consulted, appreciate input, secondary to metastatic malignancy poor c andidate for surgery, Status post colonoscopy: Shows widely patent sigmoid stent, with progression of tumor growth -- advance diet to clear liquids per GI tolerating well -- TPN started per [employer] recommendations Nausea vomiting Secondary to bowel obstruction Management as outlined above Metastatic neuroendocrine carcinoma per Dr. Almaraz notes: Metastatic neuro endocrine tumor of cecum and pancreas with widespread metastatic liver/lung/lymph nodes/inferior vena cava/vascular structures/ureter Status post adjuvant chemo treatment surgery, radiation treatment with continued progression of malignancy Recent admission with chronic obstruction secondary to metastatic disease status post sigmoid colon stent placement Patient has been getting immune therapy at [facility] hematology oncology under care of Dr. Chung Recent CT abdomen and pelvis/CT chest shows progression of disease Develop worsening of abdominal pain nausea vomiting overnight, CT abdomen pelvis shows bowel obstruction Management as outlined above Patient is scheduled to have follow-up with hematology oncology at [facility] next 01/01/2019-for second opinion Appointment rescheduled for January Will have copy of medical records including latest CT scan and CD copy prior to discharge for continuation of care Dehydration -secondary to metastatic malignancy Symptom improved with IV fluids Severe protein calorie malnutrition Significant weight loss, BMI 17 secondary to widespread metastatic malignancy recent bowel obstruction, ongoing secondary diarrhea secondary to neuroendocrine tumor Nutrition consult requested for diet supplement Patient started on TPN Hypokalemia Secondary to ongoing GI loss-diarrhea/episode of vomiting Added IV potassium supplement to maintenance fluids resolved History of DVT/PE with ongoing Lovenox treatment Lovenox therapeutic dose continued confirmed current dose with Dr. Fermín Chung CODE STATUS : FULL CODE Disposition: Continue hospital stay for bowel obstruction plan of care discussed again with patient and her today in detail and at length (with patient's daughter yesterday as well) all questions answered they are understanding, agreeable and comfortable with the plan of care Subjective ff up for SBO seen resting in bed, at bedside visiting states she feels better today tolerating clears well no nausea/vomiting, abdominal pain, (+) BMs no other symptoms Review of Systems Review of Systems: All systems reviewed & are unremarkable except as noted in HPI & below Physical Exam Physical Exam: General- oriented x 3, not in distress, speaks in sentences with no effort or accessory muscle use Eyes- anicteric Neck- no JVD Lungs- clear breath sounds bilaterally Heart- normal rate, regular rhythm; no murmurs Abdomen- normal bowel sounds, nondistended, soft, nontender Nephrostomy tube in place Extremities- no pretibial edema, no calf tenderness Neuro- alert, oriented x 3; no gross focal neurologic deficits Skin- warm & dry Results & Data Vital Signs (Past 12 Hours) Vital Signs Temp Pulse Pulse Resp BP Pulse Ox 01/02/19 18:58 36.5 C 84 18 117/71 98 01/02/19 15:09 36.5 C 79 16 109/72 99 Laboratory Results Laboratory Results - last 24 hr 01/01/19 01/02/19 01/02/19 22:15 05:40 05:40 APTT 32.9 H PTT Ratio 1.2 Sodium 138 140 Potassium 4.1 4.4 Chloride 108 H 110 H Carbon Dioxide 26 25 Anion Gap 4.0 5.0 BUN 4 L 4 L Creatinine 0.64 0.68 Est Cr Clr Drug Dosing 67.9 63.9 Est GFR ( Amer) 111.6 109.4 Est GFR (Non-Af Amer) 96.3 94.4 BUN/Creatinine Ratio 6.7 L 5.6 L Glucose 129 H 93 Calcium 7.7 L 8.4 L Phosphorus 2.5 2.9 Magnesium 1.7 L 1.8 Triglycerides 146
[2019-01-03] MEDS: ENOXAPARIN INJ 60 MG/0.6 ML SYR SQ SCH ×2 (05:28→18:55)
[2019-01-03 06:18] LABS: Basophils # (auto) 0.04 K/uL (0-0.2); Basophils % (auto) 0.8 %; Eosinophils % (auto) 5.8 %; Hematocrit (blood only) 30.2 % (37-47); Hemoglobin 9.7 g/dL (12.0-16.0); Immature Granulocytes # (auto) 0.02 K/uL (0.00-0.02); Immature Granulocytes % (auto) 0.4 %; Lymphocytes # (auto) 0.51 K/uL (1.2-3.4); Lymphocytes % (auto) 9.9 %; Mean Corpuscular Hemoglobin 28.4 pg (25-34); Mean Corpuscular Hgb Conc 32.1 g/dL (32-36); Mean Corpuscular Volume 88.6 fL (80-100); Monocytes # (auto) 0.77 K/uL (0.11-0.59); Monocytes % (auto) 14.9 %; Neutrophils # (auto) 3.52 K/uL (1.4-6.5); Neutrophils % (auto) 68.2 %; Platelet Count 373 K/uL (130-400); RDW Coefficient of Variation 16.2 % (11.5-14.5); RDW Standard Deviation 52.4 fL (36.4-46.3); Red Blood Count 3.41 M/uL (4.2-5.4); White Blood Count 5.16 K/uL (4.8-10.8)
[2019-01-03 06:30] LABS: Partial Thromboplastin Ratio 1.3; Partial Thromboplastin Time 35.1 Seconds (21.0-31.0)
[2019-01-03 06:48] LABS: BUN Creatinine Ratio 6.5 (10-20); Calcium 7.9 mg/dl (8.5-10.1); Creatinine Clr Calc Pharmacy 75.6 ml/min; Est GFR (African American) 114.7; Est GFR (Non-African American) 98.9; Magnesium 1.9 mg/dl (1.8-2.4); Phosphorus 3.4 mg/dl (2.5-4.9); Potassium 4.1 mmol/L (3.5-5.1)
[2019-01-03] MEDS: MoRPHine SULFATE CR 15 MG TABCR PO SCH ×2 (08:44→20:10)
[2019-01-03] MEDS: PARoxetine HCl 20 MG TAB PO SCH (08:45)
[2019-01-03] MEDS: BUDESONIDE/FORMOTEROL FUMARATE 160/4.5 60 PUFFS/INHALER INH SCH (08:47)
[2019-01-03] MEDS: TIOTROPIUM BROMIDE 5 PUFF/90 MCG INH INH SCH (10:16)
--- NOTE | 2019-01-03 14:45 | Pharmacy Report ---
PHA: Parenteral Nutrition Con - Date of Service January 03, 2019 - Scope Pharmacy was consulted on 01/02 to manage parenteral nutrition orders for this patient. - Subjective The patient is currently on day 2 of central parenteral nutrition for large bowel obstruction/Severe protein calorie malnutrition - Objective Height: 5 ft 1 in Weight: 48.9 kg Diet: NPO Intake & Output (24hrs):: Intake & Output 01/01/19 01/02/19 01/03/19 01/04/19 06:59 06:59 06:59 06:59 Intake Total 1856.601 / 0051.341 3890.600 / 2217.600 3539.967 / 3539.967 1536 / 1536 Output Total 1089 / 1089 225 / 225 Balance 767.601 / 439.096 1840.600 / 6402.028 2005.967 / 3539.967 1536 / 1536 Weight 46.6 kg 47.9 kg 48.9 kg 48.9 kg Laboratory Data (Last 24 Hr):: 01/03/19 05:49 Sodium 140 Potassium 4.1 Chloride 111 H Carbon Dioxide 23 BUN 4 L Creatinine 0.59 L Glucose 93 Calcium 7.9 L Phosphorus 3.4 Magnesium 1.9 Nutrition Assessment:: Please refer to the Notes section of the EMR for the most recent clinical rehabilitation liaison note. - Assessment Patient is receiving parenteral nutrition for severe protein/calorie malnutrition 2nd metastatic colon CA and bowel obstruction. Patient requesting to be discharged, did discuss with provider that patient is not at goal with macronutrients and labs will need to be monitoring while titrating up which would be easiest done inpatient. Patient could be discharged if outpatient tpn provider is monitoring/adjusting the tpn daily for the first few days. Patient will be advancing to full liquids. Therefore per clinical rehabilitation liaison recs goal for macronutrients will be reached today with 1150 kcal. Discussed with showcase maker patient will not be discharged today as [facility] is not able to use our tpn with our pumps and will not be able to set it up today but they will be coming tomorrow. Received call from [facility] pharmacist asking about cycling tpn- explained that today is only day 2 of TPN and unsure of tolerance/refeeding possibility. Will check labs in AM. Per [facility] they only check labs weekly- therefore if labs are changing tomorrow, electrolytes may need adjusted/not stable may need to stay longer and would recommend patient stays until electrolytes in tpn are stable or safe to be discharged on formula for 1 week. Patient's tpn formula currently does not contain any chloride due to high chloride levels. - Plan For day 2 of PN administration, the following will be ordered: Macronutrients Amino acids 60 grams/day Dextrose 150 grams/day Lipids 40 grams/day Micronutrients Sodium phosphate 21 MMol Potassium acetate 60 mEq Magnesium sulfate 12.18 mEq Calcium gluconate 4.65 mEq Multivitamins 10 mL Trace Elements 1 mL Additional additives: Thiamine 100 mg, Folic Acid 1 mg Total volume 1140 mL to be infused over 24 hrs will provide 1150 kcal/day Labs, as indicated, will be ordered per protocol Pharmacy will continue to follow and adjust parenteral nutrition orders on a daily basis. Thank you for allowing us to participate in the care of this patient.
[2019-01-03] MEDS ORDERED: CENTRAL PN IV SCH (16:00)
[2019-01-03] MEDS ORDERED: Nursing to Pharmacy Communication ONE (18:43)
[2019-01-04 00:55] LABS: BUN Creatinine Ratio 14.8 (10-20); Creatinine Clr Calc Pharmacy 79.6 ml/min; Est GFR (African American) 116.6; Est GFR (Non-African American) 100.6; Magnesium 2.1 mg/dl (1.8-2.4); Phosphorus 3.4 mg/dl (2.5-4.9); Potassium 4.2 mmol/L (3.5-5.1)
[2019-01-04] MEDS: HYDROmorphone INJ 0.5 MG/0.5 ML SYR IV PRN (04:06)
[2019-01-04] MEDS ORDERED: [UNRECOGNIZED DRUG - REMARK] IV ONE (06:00)
[2019-01-04] MEDS: ENOXAPARIN INJ 60 MG/0.6 ML SYR SQ SCH (06:17)
[2019-01-04] MEDS ORDERED: HEPARIN 100 UNIT/ML 5ML FLUSH FLUSH PRN (07:15)
[2019-01-04] MEDS ORDERED: Nursing to Pharmacy Communication ONE (07:49)
[2019-01-04] MEDS: BUDESONIDE/FORMOTEROL FUMARATE 160/4.5 60 PUFFS/INHALER INH SCH (08:50)
[2019-01-04] MEDS: TIOTROPIUM BROMIDE 5 PUFF/90 MCG INH INH SCH (08:50)
[2019-01-04] MEDS: MoRPHine SULFATE CR 15 MG TABCR PO SCH (08:50)
[2019-01-04] MEDS: PARoxetine HCl 20 MG TAB PO SCH (08:51)
[2019-01-04 09:16] LABS: Partial Thromboplastin Ratio 1.5; Partial Thromboplastin Time 40.9 Seconds (21.0-31.0)
[2019-01-04 09:39] LABS: Albumin Level 2.6 gm/dl (3.4-5.0); BUN Creatinine Ratio 17.7 (10-20); Calcium 8.4 mg/dl (8.5-10.1); Creatinine Clr Calc Pharmacy 74.3 ml/min; Est GFR (Non-African American) 98.4; Magnesium 2.2 mg/dl (1.8-2.4); Potassium 4.5 mmol/L (3.5-5.1)
[2019-01-04 09:42] LABS: Albumin Globulin Ratio 0.8 (0.9-2); Bilirubin,Total 0.3 mg/dl (0.2-1); Globulin 3.3 gm/dl (2.5-4.0); Phosphorus 3.6 mg/dl (2.5-4.9); Total Protein 5.9 gm/dl (6.4-8.2)
--- NOTE | 2019-01-04 10:39 | Hospitalist Progress Note ---
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 Almaraz notes: Due to metastatic malignancy with carcinomatosis CT abdomen pelvis shows: 1. Mildly progressive small bowel obstructive change and gastric distention. 2. Similar basilar nodularity and metastatic changes to the liver. 3. Potential developing carcinomatosis including presacral soft tissue prominence Patient started on NG suction,With large amount of bilious drainage, leading to improvement of symptoms, surgery consulted, secondary to metastatic malignancy poor candidate for surgery, GI consulted Status post colonoscopy: Shows widely patent sigmoid stent, with progression of tumor growth -- advanced diet to clear liquids tolerating well advance diet to full liquids as tolerated, then soft, low fiber per GI Miralax daily per GI -- TPN started per [employer]ment Knitter recommendations patient to continue TPN until ff up with [facility] on January 15, 2019 Nausea vomiting Secondary to bowel obstruction Management as outlined above Metastatic neuroendocrine carcinoma per Dr. 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 Chung Recent CT abdomen and pelvis/CT chest shows progression of disease Develop worsening of abdominal pain nausea vomiting overnight, CT abdomen pelvis shows bowel obstruction Management as outlined above Patient is scheduled to have follow-up with hematology oncology at [facility] next 01/01/2019-for second opinion Appointment rescheduled for January Will have copy of medical records including latest CT scan and CD copy prior to discharge for continuation of care Dehydration -secondary to metastatic malignancy Symptom improved with IV fluids Severe protein calorie malnutrition Significant weight loss, BMI 17 secondary to widespread metastatic malignancy recent bowel obstruction, ongoing secondary diarrhea secondary to neuroendocrine tumor Nutrition consult requested for diet supplement Patient started on TPN, patient to continue TPN until ff up with [facility] on January 15, 2019 Brie will be managing patient's TPN at home Patient to ff up with Dr. Lisa Hopkins, [facility], on 01/09/19 Hypokalemia Secondary to ongoing GI loss-diarrhea/episode of vomiting Added IV potassium supplement to maintenance fluids resolved History of DVT/PE with ongoing Lovenox treatment Lovenox 50mg q12h continued confirmed current dose with Dr. Fermín Chung CODE STATUS : FULL CODE Disposition: d/c home with TPN ff up with PCP next week ff up GI Nutrition next week patient to have 2nd opinion from [facility] 01/15/19 Subjective ff up for bowel obstruction seen resting in bed, comfortable, in good spirits tolerating clear/full liquids diet well denies nausea, abdominal pain had BMs yesterday no chest pain, dyspnea, dizziness, palpitations ambulating with no problems states she is ready and would like to be discharged today Review of Systems Review of Systems: All systems reviewed & are unremarkable except as noted in HPI & below Physical Exam Physical Exam: General- oriented x 3, not in distress, speaks in sentences with no effort or accessory muscle use Eyes- anicteric Neck- no JVD Lungs- clear breath sounds , no crackles/wheezing bilaterally Heart- normal rate, regular rhythm; no murmurs Abdomen- normal bowel sounds, nondistended, soft, nontender Extremities- no pretibial edema, no calf tenderness Neuro- alert, oriented x 3; no gross focal neurologic deficits Skin- warm & dry Results & Data Vital Signs (Past 12 Hours) Vital Signs Temp Pulse Pulse Resp BP BP Pulse Ox 01/04/19 07:16 36.7 C 82 18 131/74 97 01/04/19 03:56 36.6 C 82 18 125/79 96 01/03/19 23:37 36.6 C 74 19 135/70 96 Laboratory Results Laboratory Results - last 24 hr 01/04/19 01/04/19 01/04/19 00:34 08:53 08:53 APTT 40.9 H PTT Ratio 1.5 Sodium 139 Potassium 4.2 Chloride 108 H Carbon Dioxide 28 Anion Gap 3.0 BUN 8 Creatinine 0.56 L Est Cr Clr Drug Dosing 79.6 Est GFR ( Amer) 116.6 Est GFR (Non-Af Amer) 100.6 BUN/Creatinine Ratio 14.8 Glucose 108 H Calcium 8.0 L Phosphorus 3.4 Cancelled Magnesium 2.1 Cancelled Total Bilirubin AST ALT Alkaline Phosphatase Total Protein Albumin Globulin Albumin/Globulin Ratio 01/04/19 08:53 APTT PTT Ratio Sodium 136 Potassium 4.5 Chloride 104 Carbon Dioxide 29 Anion Gap 3.0 BUN 11 Creatinine 0.60 Est Cr Clr Drug Dosing 74.3 Est GFR ( Amer) 114.0 Est GFR (Non-Af Amer) 98.4 BUN/Creatinine Ratio 17.7 Glucose 106 H Calcium 8.4 L Phosphorus 3.6 Magnesium 2.2 Total Bilirubin 0.3 AST 18 ALT 17 Alkaline Phosphatase 194 H Total Protein 5.9 L Albumin 2.6 L Globulin 3.3 Albumin/Globulin Ratio 0.8 L
--- NOTE | 2019-01-04 10:43 | Discharge Summary ---
Date of Service January 04, 2019 Admission HPI Per Admitting Provider CHIEF COMPLAINT: Severe abdominal pain. HISTORY OF PRESENT ILLNESS: This is a 63-year-old female with past medical history significant for recurrent neuroendocrine cecal appendiceal carcinoma, status post surgery and chemoradiation, PE/DVT - on Lovenox treatment, right hydronephrosis, status post nephrostomy tube placement, COPD, history of chronic anemia with baseline hemoglobin of 9-10, history of UTI. The patient was in the hospital in October with large bowel obstruction with colonic ulcer . 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 Then, she developed diarrhea. She is on Imodium p.r.n. She also is status post right hemicolectomy. Currently, she is on vectibix treatment every 2 weeks. She recently on 12/23/2018 had a CAT scan of the abdomen and pelvis and also chest CT, which showed progression of the disease and as per the patient, she has an appointment at [facility] this coming week for further plan of care.Today she comes to the ER because of severe lower abdominal pain, and her last bowel movement was yesterday in the afternoon, it was more of formed stools and she also has less urine output in her nephrostomy bag and she did not micturate by herself and she also had nausea, vomiting, . She has on and off blood in the stools, on and off blood in the nephrostomy bag and her heme/oncologist was checking the Lovenox level to adjust the Lovenox dose, the result is supposed to come today. The patient has some mild headache, no dizziness, no blurred visions. Has some mild ear irritation, no sore throat, no difficulty swallowing. Appetite is okay, but lost significant weight since her radiation treatments. Denies any chest pain. She gets some shortness of breath says because she is weak. No cough, no fever. Feeling cold. No swelling in the legs. Has some mild macular rash on extremities and some itchiness thinks from the medications. ALLERGIES: No known drug allergies. PAST MEDICAL HISTORY: As mentioned above. PAST SURGICAL HISTORY: Colonoscopy, colposcopy, insertion of a tunneled catheter, arthroscopy of the knee, partial colectomy with anastomosis, right side removal of the ovary and cyst status post exploratory laparotomy, underwent ileal small bowel to transverse colon side to side anastomosis. MEDICATIONS: The patient is on albuterol 2 puffs every 6 hours p.r.n., allopurinol 300 mg p.o. at bedtime, cyclobenzaprine 10 mg p.o. t.i.d. p.r.n., Lovenox 55 mg subcutaneously q.12 hours, Ativan 0.5 mg p.o. b.i.d. p.r.n., morphine 50 mg p.o. q.12 hours, morphine concentrate 0.5 mL p.o. q.6 hours p.r.n., paroxetine 30 mg p.o. in a.m., simethicone 80 mg as directed, Symbicort 1 puff inhalation in a.m., Spiriva 2 puffs inhalation daily. FAMILY HISTORY: Significant for father had prostate cancer. Mother had breast cancer. Aunt on father's side has kidney cancer. Brother has prostate cancer. SOCIAL HISTORY: , lives with her . Former smoker, quit in 1999. Alcohol, occasional beer. No drug use. REVIEW OF SYMPTOMS: As per HPI. Rest of review of symptoms negative. Admission Exam Per Admitting Provider PHYSICAL EXAMINATION: GENERAL: The patient is weak and frail, not in acute distress. VITAL SIGNS: Temperature 36.7, pulse 62, respiratory rate 18, blood pressure 129/81, oxygen 94% on room air. HEENT: No pallor, no icterus. Pupils equal, round, reactive to light. Ears; mild erythema seen on the right eardrum. NECK: No JVD, no neck masses, no carotid bruits. CARDIOVASCULAR: S1, S2 heard, regular rate and rhythm, no murmur, no gallop. RESPIRATORY SYSTEM: Normal AP diameter. No thyromegaly. No wheezing, no crackles. ABDOMEN: Soft, bowel sounds very sluggish, mild discomfort. No guarding, no rigidity. No distention. CENTRAL NERVOUS SYSTEM: Cranial nerves II-XII grossly intact. Nonfocal. EXTREMITIES: No edema, no erythema. Principal Diagnosis SMALL BOWEL OBSTRUCTION, RESOLVED Discharge Exam General- oriented x 3, not in distress, speaks in sentences with no effort or accessory muscle use Eyes- anicteric Neck- no JVD Lungs- clear breath sounds , no crackles/wheezing bilaterally Heart- normal rate, regular rhythm; no murmurs Abdomen- normal bowel sounds, nondistended, soft, nontender Extremities- no pretibial edema, no calf tenderness Neuro- alert, oriented x 3; no gross focal neurologic deficits Skin- warm & dry Discharge Data Allergies Allergy/AdvReac Type Severity Reaction Status Date / Time No Known Allergies Allergy Verified 12/28/18 05:47 Consultations 12/28/18 06:20 ED Decision to Admit Stat 12/28/18 09:26 Consult Case Management - Discharge Planning Routine 12/30/18 10:39 Burn CD for patient Routine 12/31/18 00:22 Consult General Surgery Routine 12/31/18 12:01 Consult Gastroenterology Routine Procedures Performed Operation Date: 12/31/18 13:50 Actual Procedures p Colonoscopy - Irphan E Gaslightwala Findings: Hemorrhoids were found on perianal exam. The ultrathin upper scope was used for the entire exam. There was stool in the rectum. The previously placed colonic stent was well placed over the tumor in the recto sigmoid colon. There was mild tumor ingrowth, most prominent along the proximal edge of the stent; however, there was no evidence of colonic obstruction. The stent was widely patent. The remainder of the colon and the ileocolonic anastamosis was widely patent. There was stool throughout the colon. Impression: Widely patent colonic stent in rectosigmoid colon. Recommendation: - Discharge patient to floor. Clamp NGT overnight. Repeat obstructive series in am. Ordered Studies 12/28/18 09:26 CT abd pelvis wo con Urgent IMPRESSION: 1. Similar study compared to the prior exam. 2. Mild increase in gastric distention as well as mild increase in colonic fecal load. 3. Soft tissue at the proximal aspect of the rectosigmoid stent, similar to and are slightly progressive compared to the prior study. 4. This is creating early evidence for colonic distention/partial obstructive change.. 5. Probable early carcinomatosis unchanged. 12/30/18 22:21 CT abd pelvis IV con only Urgent FINDINGS: Unchanged nodularity right lung base. Hepatic metastatic disease is again noted. Right-sided nephrostomy in good position. Atrophic right kidney. Left kidney is negative for hydronephrosis. Mildly progressive gastric as well as small bowel distention. Rectosigmoid stent with evidence for some progressive narrowing at its superior and/or proximal extent. Slightly progressive abdominal and pelvic ascites. IMPRESSION: 1. Mildly progressive small bowel obstructive change and gastric distention. 2. Similar basilar nodularity and metastatic changes to the liver. 3. 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 Almaraz notes: Due to metastatic malignancy with carcinomatosis CT abdomen pelvis shows: 1. Mildly progressive small bowel obstructive change and gastric distention. 2. Similar basilar nodularity and metastatic changes to the liver. 3. Potential developing carcinomatosis including presacral soft tissue prominence Patient started on NG suction,With large amount of bilious drainage, leading to improvement of symptoms, surgery consulted, secondary to metastatic malignancy poor candidate for surgery, GI consulted Status post colonoscopy: Shows widely patent sigmoid stent, with progression of tumor growth -- advanced diet to clear liquids tolerating well advance diet to full liquids as tolerated, then soft, low fiber per GI Miralax daily per GI -- TPN started per Venereal Disease Investigator recommendations patient to continue TPN until ff up with [facility] on January 15, 2019 Nausea vomiting Secondary to bowel obstruction Management as outlined above Metastatic neuroendocrine carcinoma per Dr. 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 Chung Recent CT abdomen and pelvis/CT chest shows progression of disease Develop worsening of abdominal pain nausea vomiting overnight, CT abdomen pelvis shows bowel obstruction Management as outlined above Patient is scheduled to have follow-up with hematology oncology at [facility] next 01/01/2019-for second opinion Appointment rescheduled for January Will have copy of medical records including latest CT scan and CD copy prior to discharge for continuation of care Dehydration -secondary to metastatic malignancy Symptom improved with IV fluids Severe protein calorie malnutrition Significant weight loss, BMI 17 secondary to widespread metastatic malignancy recent bowel obstruction, ongoing secondary diarrhea secondary to neuroendocrine tumor Nutrition consult requested for diet supplement Patient started on TPN, patient to continue TPN until ff up with [facility] on January 15, 2019 Brie will be managing patient's TPN at home Patient to ff up with Dr. Lisa Hopkins, SARIK[facility], on 01/09/19 Hypokalemia Secondary to ongoing GI loss-diarrhea/episode of vomiting Added IV potassium supplement to maintenance fluids resolved History of DVT/PE with ongoing Lovenox treatment Lovenox 50mg q12h continued confirmed current dose with Dr. Fermín Chung CODE STATUS : FULL CODE Disposition: d/c home with TPN ff up with PCP next week ff up GI Nutrition next week patient to have 2nd opinion from [facility] 01/15/19 plan of care discussed with patient and her in detail and at length all questions answered they are understanding, comfortable, agreeable with the plan of care Total Time Total Time Spent Total Time Spent (In Minutes): 80 minutes Discharge Plan Discharge Items Patient Disposition: Home - Home Health Services Reason For Visit: ABD PAIN Discharge Diagnosis: Small Bowel Obstruction Severe protein calorie malnutrition Activity: As commented below Activity Comment: Resume activity gradually as tolerated Exercise/Sports: Wait until after follow-up appointment Driving/Machine Use: No Driving Non-emergency contact: Primary Care Provider Call non-emergency contact if: you have any medication questions, your symptoms worsen, your pain is not controlled, your pain is worsening, your pain is unusual for you, your pain is concerning for you and you have a fever Follow-up/Referrals: Zahida Mcgill, DO [Primary Care Provider] - Diet: Regular Addtl Attending Provider Instructions: Take Miralax once daily. Advance diet very slowly to full liquids, then soft, low fiber as tolerated. Follow up with Dr. Mcgill this coming week. The clinic will call you for the appointment. Follow up with GI Nutrition for TPN management - Dr. Lisa Hopkins at [facility] on January 09, 2019 at 1:00PM. tel # [facility] will be managing your TPN along with Dr. Hopkins. Please call their office for questions. Follow-up with hematology oncology at [facility] per schedule Call Primary Care Physician or return to the ER immediately if with recurrence or worsening of symptoms. Pending Studies at Discharge: Yes Studies:: Bloodwork to be done this week c/o [place] Stand-Alone Forms: My [facility], Smoking Cessation Medications and DC Order Prescriptions: New enoxaparin 60 mg/0.6 mL Syringe 50 mg subcut Q12H 30 Days Qty: 30 RF: 2 Continued Spiriva Respimat 2.5 mcg/actuation mist 2 puff INHALATION DAILY Qty: 4 RF: 11 paroxetine HCl 20 mg tablet 30 mg PO QAM RF: 0 albuterol sulfate [ProAir HFA] 90 mcg/actuation Hfa Aerosol Inhaler 2 puff INHALATION Q6H PRN (Reason: Shortness Of Breath Or Wheezing) RF: 0 allopurinol 300 mg tablet 300 mg PO HS RF: 0 Symbicort 160-4.5 mcg/actuation Hfa Aerosol Inhaler 1 puff INHALATION QAM RF: 0 simethicone [Gas Relief] 80 mg Tablet,Chewable 80 mg PO DIRECTED PRN (Reason: FOR GAS RELIEF) RF: 0 morphine concentrate 100 mg/5 mL (20 mg/mL) Solution 0.5 ml PO Q4 PRN (Reason: PAIN) Qty: 30 RF: 0 cyclobenzaprine 10 mg tablet 10 mg PO TID PRN (Reason: muscle spasm) Qty: 90 RF: 3 lorazepam 0.5 mg tablet 0.5 mg PO BID PRN (Reason: Sleep) RF: 0 Changed morphine 15 mg tablet extended release 15 mg PO Q8H Qty: 0 RF: 0 Discontinued enoxaparin 60 mg/0.6 mL Syringe 55 mg SUBCUT Q12H RF: 0 Discharge Orders: Discharge Order (Routine); Ordered 01/04/19 Ordered By: Oli Doyle Admission Data Admit Date/Time: 12/28/18 07:04 Attending Provider: Oli Doyle Admit Provider: Satish Mensah Primary Care Provider: Zahida Mcgill Other Providers: Satish Mensah ; David Espitia ; David Anton ; Darren Villalba ; Malissa Julio ; Medardo Honeycutt ; Shayan Henderson ; Sathish Rivero ; Chery Tee ; Ben Isaacs ; Aneesh Post ; Deyanira Chu ; Iesha Quinones ; Juanita Law ; Loan Correa ; Senia Woodward ; Barbara Almaraz. ; [facility]
[2019-01-04 11:21] VITALS: TEMP 97.9; O2SAT 98
[2019-01-04 12:55] VITALS: BP 135/70; PULSE 82
== END 2019-01-04 13:52 | disposition home health service (06) | DRG 374 ==
LOC: ED 02:40 → 4W 07:04 → SUATTDRO 07:04 → 4W 08:24

== ENCOUNTER 2019-02-28 11:58 | Inpatient (IN) ==
[2019-02-28] MEDS ORDERED: MoRPHine SULFATE 4 MG/ML 1 ML CARP\\VIAL IV STA ×3 (12:24→15:42)
[2019-02-28] MEDS ORDERED: SODIUM CHLORIDE 0.9% 1000ML 1,000 ML IV ONE (12:24)
[2019-02-28] MEDS ORDERED: DiphenhydrAMINE HCL 50 MG/ML VIAL IV STA (12:39)
[2019-02-28] MEDS ORDERED: METOCLOPRAMIDE HCL INJ 5 MG/ML 2 ML VIAL IV ONE (12:39)
[2019-02-28 13:01] LABS: Hematocrit (blood only) 28.7 % (37-47); Hemoglobin 9.2 g/dL (12.0-16.0); Mean Corpuscular Hemoglobin 26.8 pg (25-34); Mean Corpuscular Hgb Conc 32.1 g/dL (32-36); Mean Corpuscular Volume 83.7 fL (80-100); Mean Platelet Volume 9.6 fL (7.4-10.4); Nucleated RBC # (auto) 0.07 K/uL (0-0); Nucleated RBC % (auto) 0.7 %; Platelet Count 474 K/uL (130-400); RDW Coefficient of Variation 16.6 % (11.5-14.5); RDW Standard Deviation 49.9 fL (36.4-46.3); Red Blood Count 3.43 M/uL (4.2-5.4)
[2019-02-28 13:12] LABS: INR 1.1 (0.9-1.1); Partial Thromboplastin Ratio 1.2; Partial Thromboplastin Time 32.2 Seconds (21.0-31.0); Prothrombin Time 11.3 Seconds (9.0-12.0)
[2019-02-28 13:18] LABS: Albumin Level 1.8 gm/dl (3.4-5.0); BUN Creatinine Ratio 49.8 (10-20); Bilirubin Direct 0.2 mg/dl (0-0.2); Calcium 8.3 mg/dl (8.5-10.1); Creatinine Clr Calc Pharmacy 41.8 ml/min; Est GFR (African American) 69.9; Est GFR (Non-African American) 60.3; Magnesium 2.5 mg/dl (1.8-2.4); Potassium 3.6 mmol/L (3.5-5.1)
[2019-02-28 13:21] LABS: Bilirubin,Total 0.5 mg/dl (0.2-1); Total Protein 6.2 gm/dl (6.4-8.2)
[2019-02-28] MEDS ORDERED: IOVERSOL 100ml IV PRN (13:29)
[2019-02-28 13:36] LABS: ALC (manual) 0.24 K/uL (1.2-3.4); ANC (manual) 7.93 K/uL (1.4-6.5); Dohle Bodies 1+; Lymphocytes # (manual) 0.24 K/uL (1.2-3.4); Lymphocytes % (manual) 2.6 %; Metamyelocytes # (manual) 0.16 K/uL (0-0); Metamyelocytes % (manual) 1.7 %; Monocytes # (manual) 0.97 K/uL (0.11-0.59); Monocytes % (manual) 10.4 %; Neutrophils # (manual) 7.93 K/uL (1.4-6.5); Neutrophils % (manual) 85.3 %
--- NOTE | 2019-02-28 13:54 | CT Scan Report ---
CT SCAN OF THE ABDOMEN AND PELVIS WITH IV CONTRAST CLINICAL HISTORY: Generalized abdominal pain. History of metastatic colon cancer. COMPARISON STUDY: Abdominal CT dated 12/30/2018. TECHNIQUE: Following the IV administration of 95 cc of Optiray 320, CT scan of the abdomen and pelvi s is performed from the lung bases to the proximal femora. Images are reviewed in the axial, sagittal , and coronal planes. IV contrast was administered without complication. A dose lowering technique wa s utilized adhering to the principles of ALARA. CT DOSE: 257.48 mGy.cm FINDINGS: Lung bases: The heart is normal in size and without pericardial effusion. Advanced emphysematous sosa ge is present at the lung bases. There is no airspace consolidation or pleural effusion. There is pro gressive multifocal pulmonary metastatic disease as compared to 12/30/2018. There are numerous (great er than 10) pulmonary lesions which measure up to 11 mm (right lower lobe image #26). There is a smal l hiatal hernia. Esophageal varices are noted. Liver: The contrast-enhanced liver is normal in size and contour. There is no intrahepatic biliary du ctal dilatation. The hepatic veins and portal veins are patent. There has been marked progression of multifocal hepatic metastatic disease as compared to 12/30/2018. There are greater than 20 hepatic ma sses. The largest is in the left lobe seen on image #62 and measures approximately 6 x 6 cm. Gallbladder: The gallbladder is distended but otherwise normal in appearance. Spleen: Normal in size and attenuation. Pancreas: Moderately atrophic and grossly unremarkable. Adrenal glands: Adrenal glands appear hyperemic which can be seen in the setting of hypovolemia/shock . No adrenal lesion is identified. Kidneys: There is asymmetric cortical atrophy of the right kidney as compared to left. A percutaneous nephrostomy tube is in place on the right. There is no right-sided hydronephrosis. There is moderate left hydroureteronephrosis. This is new from 12/30/2018. There is slightly heterogeneous enhancement of the renal parenchyma. Abdominal vasculature: The abdominal aorta is normal in course and caliber noting moderate atheroscle rotic calcification. Extensive thrombus is suggested within the inferior vena cava, best seen on imag e #191. Bowel: There is postoperative change of right hemicolectomy with ileocolic anastomosis. A stent is pr esent in the rectosigmoid region. The rectal mucosa below the stent appears thickened, heterogeneous, and hyperemic and a rectal mass lesion is suspected. There is also soft tissue thickening identified around the stent. There is marked dilatation of the left colon upstream from the stent. The left col on measures up to 6 cm in diameter. The small bowel across the distended and fluid-filled measuring u p to 5 cm. The appearance is consistent with a small bowel obstruction, likely at or just above the l evel of the colonic stent. There is mild diffuse wall thickening and hyperemia seen throughout the lauri wel involving both the small bowel and colon. There is no pneumatosis intestinalis or portal venous g as. Peritoneum: There is a small volume of abdominal ascites. No intraperitoneal free air is seen. Lymphadenopathy: Mildly enlarged left cardiophrenic lymph nodes measure up to 11 mm. A large right ex ternal iliac chain regan aggregate on image #301 has markedly increased in size, now measuring 3.4 x 3.1 cm (previously measuring 2.2 cm). Presumed confluent retroperitoneal lymphadenopathy is similar t o previous. A retrocrural node on image #78 has increased in size measuring 2.3 x 2.1 cm. Pelvic viscera: The bladder, uterus, and adnexa are normal as visualized. Skeletal structures: The skeletal structures are osteopenic. No lytic or blastic lesions are seen. Soft tissues: The patient is cachectic. There is mild body wall edema. IMPRESSION: 1. There is postoperative change from right hemicolectomy with ileocolic anastomosis and stenting of the rectosigmoid colon. 2. There is evidence of high-grade colonic obstruction, at or just above the level of the rectosigmoi d stent. There is also significant upstream distention of the small bowel. 3. There is a small volume of abdominopelvic ascites. No intraperitoneal free air is seen. Peritoneal carcinomatosis is not excluded. 4. There has been marked progression of multifocal metastatic disease. Progressive pulmonary, hepatic , and regan metastatic disease is detailed above. 5. There is mild diffuse wall thickening and hyperemia seen throughout the bowel. This is nonspecific and could be related to obstruction, hypovolemia, or possibly hypoproteinemia. Clinical correlation will be essential. 6. Hyperemia of the adrenal glands also suggests hypovolemia. Clinical correlation will be required. 7. Extensive thrombus is again seen within the IVC. 8. Moderate left hydronephrosis is new from 12/30/2018. 9. A percutaneous nephrostomy tube is seen on the right. There is no right-sided hydronephrosis. 10. Rectal wall thickening, irregularity, and hyperemia is noted below the stent and may represent a rectal mass. 11. Emphysema. 12. Additional findings as above. ACT 112: Positive. There are findings on this exam that require communication between the performing entity and the patient following Patient Test Result Information Act ([place] Act 112) guidelines. Electronically signed by: Willy Chahal M.D. 02/28/2019 1:53 PM
--- NOTE | 2019-02-28 15:55 | History & Physical Report ---
Date of Service February 28, 2019 History of Present Illness Primary Care Provider: Zahida Mcgill DO Allergies Allergy/AdvReac Type Severity Reaction Status Date / Time No Known Allergies Allergy Verified 02/28/19 13:40 Home Medications Home Medications Medication Instructions Recorded Confirmed Type albuterol sulfate [ProAir HFA] 2 puff INHALATION Q6H PRN 04/24/18 02/28/19 History paroxetine HCl 30 mg PO QAM 04/24/18 02/28/19 History Symbicort 1 puff INHALATION QAM 05/25/18 02/28/19 History simethicone [Gas Relief] 80 mg PO DIRECTED PRN 10/13/18 02/28/19 History cyclobenzaprine 10 mg PO TID PRN #90 tab 10/20/18 02/28/19 Rx lorazepam 0.5 mg PO BID PRN 11/04/18 02/28/19 History enoxaparin 50 mg SUBCUT Q12H 30 Days #30 ml 01/04/19 02/28/19 Rx Spiriva Respimat 2 puff INHALATION QAM 02/28/19 02/28/19 History allopurinol 300 mg PO DAILY 02/28/19 02/28/19 History diphenoxylate-atropine 1 tab PO Q4H PRN 02/28/19 02/28/19 History fentanyl 12 mcg TRANSDERMAL Q72H 02/28/19 02/28/19 History loperamide [Imodium A-D] 2 mg PO Q4H PRN 02/28/19 02/28/19 History oxycodone 0.25 mg PO Q4H PRN 02/28/19 02/28/19 History Past Med/Surg History Medical History (Updated 02/28/19 @ 15:43 by DEJUAN Sandoval) Colon cancer (Chronic) S/P right hemicolectomy on 03/23/2017 (by Dr. Cheng). 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 S/P neoadjuvant modified FOLFOX 6 chemotherapy x 5 -Oxaliplatin induced the liver toxicity, received 5-Fluorouracil leucovorin x 7. Last cycle received on 02/12/2018. S/P right hemicolectomy on 03/23/2017 (by Dr. Cheng). 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 KRAS and BRAF mutation-->negative. 04/2018: -recurrent high-grade neuroendocrine carcinoma involving the retroperitoneal lymph regan region causing right hydronephrosis, S/P percutaneous nephrostomy drainage. -IVC thrombus, pulmonary embolism. - Essential thrombocythemia diagnosed in 2005, JAK2 mutation positive platelet count was over 1 million at that time the diagnosis. She is on hydroxyurea for that." Pulmonary embolism (Chronic) Stenosis colon s/p colonic stent Stricture of colon Thrombocytosis (Chronic) Surgical History H/O rotator cuff surgery (Chronic) History of arthroscopy of left knee (Chronic) History of partial surgical removal of colon (Chronic) S/P removal of right ovary (Chronic) Family History Grandmother (Paternal) , of childbirth No problems noted. Grandfather (Paternal) , of lung cancer at age 7 No problems noted. Father , of protsate cancer No problems noted. Mother , of breas cancer with metastasis to lung and brain No problems noted. Brother Age: 63 Prostate cancer Brother Age: 57 Prostate cancer Sister Age: 50 No problems noted. Daughter Age: 27 No problems noted. 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 Beliefs That Will Affect Care: None marital status: Current Living Situation: Spouse Other Information That Helps Us Care for You: No Feels Safe at Home: Yes Safety Concerns: Feels Safe At This Time Smoking Status: Former smoker Tobacco Type: cigarettes ; Cigarettes Per Day: 1.5 ppd X 20 years ; Do You Dip or Chew Tobacco: No ; Smoking End Date: 1999 ; Second Hand Exposure: No ; Tobacco Cessation Education Requested by Patient: No Hx Alcohol Use: Yes Alcohol type: beer Hx Substance Use: Yes substance use type: opiates, painkillers, prescription drug and other Substance Use Type Other:: Morphine Last Used Substance: Unknown Results & Data Vital Signs (Past 12 Hours) Vital Signs Temp Pulse Pulse Resp BP BP Pulse Ox 02/28/19 15:47 96 H 25 H 115/72 98 02/28/19 14:45 101 H 22 108/68 98 02/28/19 14:14 95 H 24 110/68 98 02/28/19 13:10 101 H 22 119/71 99 02/28/19 12:28 96 02/28/19 12:14 36.4 C L 104 H 18 129/79 99 Code Status & VTE Plan VTE Prophylaxis Plan VTE Prophylaxis will be ordered: Yes
[2019-02-28] MEDS ORDERED: ONDANSETRON INJ 2 MG/ML 2 ML VIAL IV PRN (17:17)
[2019-02-28] MEDS ORDERED: ACETAMINOPHEN 325 MG TAB PO PRN (17:17)
--- NOTE | 2019-02-28 17:32 | Surgery Consultation ---
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 Guadalupe was last admitted in December with bowel obstruction and underwent colonoscopy which showed patent colonic stent. She was treated conservatively. She has since seen oncologist at [facility] for second opinion who recommended immunotherapy. She follows with Dr. Chung. CT scan today showing progression of disease compared to CT in December as well as concern for possible stricture of proximal stent (similar to last CT scan). Lactic acid mildly elevated at 2.6 --> 2.3 (may be dehydrated, no oral intake for 3.5 weeks just TPN) Plan: Patient currently has extensive metastatic disease to liver and lungs with carcinomatosis which has progressed from prior CT scan in December. She is still having bowel function so her obstruction is not complete and does not need immediate surgical intervention. Given extent of disease, if she were to need surgical exploration/management would recommend transfer to tertiary center. Question of possible stricture of proximal colonic stent (this was similar finding on CT scan in December in which colonoscopy showed patent stent). GI recommending transfer to [place] for intervention. Her response to immunotherapy likely insufficient as her disease burden has progressed. Believe it is prudent for palliative care consult to discuss goals of care with patient and as she states she has thought about home hospice and that her quality of life has been poor in past few weeks. Would recommend conservative management with IV fluids, bowel rest, NGT if has increasing nausea or any vomiting , Pain management and antiemetics as needed. Would continue her TPN (2) Neuroendocrine carcinoma metastatic to liver: plan as above Dr. Telles has seen patient, agrees with above. History of Present Illness Reason for Consultation: SBO Requesting Physician: Dr. Schneider Attending Physician: Shea Schneider MD History of Present Illness Guadalupe is a very pleasant 64 year-old female with history significant for recurrent neuroendocrine cecal appendiceal carcinoma, status post small bowel bypass originally to transverse colon (08/08/[address] Kaufman) follow by chemoradiation (02/2017) and then right hemicolectomy (03/[address] Cheng at [facility]). She also has nephrostomy tube placement for hydronephrosis secondary to retroperitoneal lymphadenopathy causing right hydronephrosis. Extensive metastatic disease to liver and lungs with carcinomatosis. The patient was in the hospital in October with large bowel obstruction with colonic ulcer . 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 She then was admitted again in December with bowel obstruction and possible narrowing of the superior aspect of colonic stent. She underwent colonoscopy which showed a patent colonic stent. She was managed conservatively and was discharged. She went to [facility] for second opinion with oncologist who recommended immunotherapy which she is currently on. Guadalupe presented to emergency department today with complaint of increase abdominal distention, nausea, vomiting, and diarrhea in the last week. States she has been on TPN for the past 3.5 weeks and has not taken anything in orally. She is still having diarrhea/loose stools, last bowel movement was this morning. Repeat CT scan of abd/pelvis showing progression of disease with increased pulmonary and liver disease burden. There may be a narrowing of the proximal stent as well (however this was seen on last CT scan in December and stent patent by colonoscopy). She last saw Dr. Chung on 02[facility]20/[facility] and was to continue on her immunotherapy. Allergies Allergy/AdvReac Type Severity Reaction Status Date / Time No Known Allergies Allergy Verified 02/28/19 13:40 Home Medications Home Medications Medication Instructions Recorded Confirmed Type albuterol sulfate [ProAir HFA] 2 puff INHALATION Q6H PRN 04/24/18 02/28/19 History paroxetine HCl 30 mg PO QAM 04/24/18 02/28/19 History Symbicort 1 puff INHALATION QAM 05/25/18 02/28/19 History simethicone [Gas Relief] 80 mg PO DIRECTED PRN 10/13/18 02/28/19 History cyclobenzaprine 10 mg PO TID PRN #90 tab 10/20/18 02/28/19 Rx lorazepam 0.5 mg PO BID PRN 11/04/18 02/28/19 History enoxaparin 50 mg SUBCUT Q12H 30 Days #30 ml 01/04/19 02/28/19 Rx Spiriva Respimat 2 puff INHALATION QAM 02/28/19 02/28/19 History allopurinol 300 mg PO DAILY 02/28/19 02/28/19 History diphenoxylate-atropine 1 tab PO Q4H PRN 02/28/19 02/28/19 History fentanyl 12 mcg TRANSDERMAL Q72H 02/28/19 02/28/19 History loperamide [Imodium A-D] 2 mg PO Q4H PRN 02/28/19 02/28/19 History oxycodone 0.25 mg PO Q4H PRN 02/28/19 02/28/19 History Patient History Medical History (Updated 02/28/19 @ 17:34 by Tamela Clifford PA-C) Colon cancer (Chronic) S/P right hemicolectomy on 03/23/2017 (by Dr. Cheng). 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 S/P neoadjuvant modified FOLFOX 6 chemotherapy x 5 -Oxaliplatin induced the liver toxicity, received 5-Fluorouracil leucovorin x 7. Last cycle received on 02/12/2018. S/P right hemicolectomy on 03/23/2017 (by Dr. Cheng). 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 KRAS and BRAF mutation-->negative. 04/2018: -recurrent high-grade neuroendocrine carcinoma involving the retroperitoneal lymph regan region causing right hydronephrosis, S/P percutaneous nephrostomy drainage. -IVC thrombus, pulmonary embolism. - Essential thrombocythemia diagnosed in 2005, JAK2 mutation positive platelet count was over 1 million at that time the diagnosis. She is on hydroxyurea for that." Pulmonary embolism (Chronic) Stenosis colon s/p colonic stent Stricture of colon Thrombocytosis (Chronic) Surgical History H/O rotator cuff surgery (Chronic) History of arthroscopy of left knee (Chronic) History of partial surgical removal of colon (Chronic) S/P removal of right ovary (Chronic) Family History Grandmother (Paternal) , of childbirth No problems noted. Grandfather (Paternal) , of lung cancer at age 7 No problems noted. Father , of protsate cancer No problems noted. Mother , of breas cancer with metastasis to lung and brain No problems noted. Brother Age: 63 Prostate cancer Brother Age: 57 Prostate cancer Sister Age: 50 No problems noted. Daughter Age: 27 No problems noted. Other No pertinent family history Social History Preferred Language: Kittitian Communication Ability: Effective Corporate Communications Manager Required: No Beliefs That Will Affect Care: None marital status: Current Living Situation: Spouse Other Information That Helps Us Care for You: No Feels Safe at Home: Yes Safety Concerns: Feels Safe At This Time Smoking Status: Former smoker Tobacco Type: cigarettes ; Cigarettes Per Day: 1.5 ppd X 20 years ; Do You Dip or Chew Tobacco: No ; Smoking End Date: 1999 ; Second Hand Exposure: No ; Tobacco Cessation Education Requested by Patient: No Hx Alcohol Use: Yes Alcohol type: beer Hx Substance Use: Yes substance use type: opiates, painkillers, prescription drug and other Substance Use Type Other:: Morphine Last Used Substance: Unknown Review of Systems Review of Systems: All systems reviewed & are unremarkable except as noted in HPI & below Physical Exam Constitutional: + ill appearing, + thin and + cachectic; no acute distress Respiratory: normal respiratory effort; no respiratory distress Gastrointestinal (Abdomen): Inspection/Auscultation: + abdomen distended (moderately distended); + abnormal bowel sounds (hypoactive sounds but some present in RLQ, no high pitch sounds) Percussion/Palpation: + abdomen rigid (given distention); abdomen nontender, no guarding and + abdomen not soft Skin: no rashes, warm and dry Psychiatric: A+Ox3, euthymic affect Results & Data Vital Signs (Past 12 Hours) Vital Signs Temp Pulse Pulse Resp BP BP Pulse Ox 02/28/19 17:24 103 H 18 116/70 02/28/19 16:56 97 H 28 H 113/70 97 02/28/19 15:47 96 H 25 H 115/72 98 02/28/19 14:45 101 H 22 108/68 98 02/28/19 14:14 95 H 24 110/68 98 02/28/19 13:10 101 H 22 119/71 99 02/28/19 12:28 96 02/28/19 12:14 36.4 C L 104 H 18 129/79 99 Laboratory Results 02/28/19 02/28/19 02/28/19 Range/Units 13:52 12:45 12:45 WBC (4.8-10.8) K/uL RBC (4.2-5.4) M/uL Hgb (12.0-16.0) g/dL Hct (37-47) % MCV (80-100) fL MCH (25-34) pg MCHC (32-36) g/dL RDW Std Deviation (36.4-46.3) fL RDW Coeff of Ysabel (11.5-14.5) % Plt Count (130-400) K/uL MPV (7.4-10.4) fL Absolute Nucleated RBC (0-0) K/uL Nucleated RBC % (auto) % Neutrophils % (Manual) % Lymphocytes % (Manual) % Monocytes % (Manual) % Metamyelocytes % (Man) % Neutrophils # (Manual) (1.4-6.5) K/uL Total Absolute Neuts (1.4-6.5) K/uL Lymphocytes # (Manual) (1.2-3.4) K/uL Total Abs Lymphocytes (1.2-3.4) K/uL Monocytes # (Manual) (0.11-0.59) K/uL Metamyelocytes # (Man) (0-0) K/uL Dohle Bodies PT (9.0-12.0) Seconds INR (0.9-1.1) APTT (21.0-31.0) Seconds PTT Ratio Sodium 139 (136-145) mmol/L Potassium 3.6 (3.5-5.1) mmol/L Chloride 105 (98-107) mmol/L Carbon Dioxide 28 (21-32) mmol/L Anion Gap 7.0 (3-11) BUN 50 H (7-18) mg/dl Creatinine 1.00 (0.6-1.2) mg/dl Est Cr Clr Drug Dosing 41.8 ml/min Est GFR ( Amer) 69.9 Est GFR (Non-Af Amer) 60.3 BUN/Creatinine Ratio 49.8 H (10-20) Glucose 138 H (70-99) mg/dl Lactate 2.3 H* 2.6 H* (0.4-2.0) mmol/L Calcium 8.3 L (8.5-10.1) mg/dl Magnesium 2.5 H (1.8-2.4) mg/dl Total Bilirubin 0.5 (0.2-1) mg/dl Direct Bilirubin 0.2 (0-0.2) mg/dl AST 50 H (15-37) U/L ALT 21 (12-78) U/L Alkaline Phosphatase 379 H (45-117) U/L Total Protein 6.2 L (6.4-8.2) gm/dl Albumin 1.8 L (3.4-5.0) gm/dl Lipase 19 L (73-393) U/L 02/28/19 02/28/19 Range/Units 12:45 12:45 WBC 9.30 (4.8-10.8) K/uL RBC 3.43 L (4.2-5.4) M/uL Hgb 9.2 L (12.0-16.0) g/dL Hct 28.7 L (37-47) % MCV 83.7 (80-100) fL MCH 26.8 (25-34) pg MCHC 32.1 (32-36) g/dL RDW Std Deviation 49.9 H (36.4-46.3) fL RDW Coeff of Ysabel 16.6 H (11.5-14.5) % Plt Count 474 H (130-400) K/uL MPV 9.6 (7.4-10.4) fL Absolute Nucleated RBC 0.07 H (0-0) K/uL Nucleated RBC % (auto) 0.7 % Neutrophils % (Manual) 85.3 % Lymphocytes % (Manual) 2.6 % Monocytes % (Manual) 10.4 % Metamyelocytes % (Man) 1.7 % Neutrophils # (Manual) 7.93 H (1.4-6.5) K/uL Total Absolute Neuts 7.93 H (1.4-6.5) K/uL Lymphocytes # (Manual) 0.24 L (1.2-3.4) K/uL Total Abs Lymphocytes 0.24 L (1.2-3.4) K/uL Monocytes # (Manual) 0.97 H (0.11-0.59) K/uL Metamyelocytes # (Man) 0.16 H (0-0) K/uL Dohle Bodies 1+ PT 11.3 (9.0-12.0) Seconds INR 1.1 (0.9-1.1) APTT 32.2 H (21.0-31.0) Seconds PTT Ratio 1.2 Sodium (136-145) mmol/L Potassium (3.5-5.1) mmol/L Chloride (98-107) mmol/L Carbon Dioxide (21-32) mmol/L Anion Gap (3-11) BUN (7-18) mg/dl Creatinine (0.6-1.2) mg/dl Est Cr Clr Drug Dosing ml/min Est GFR ( Amer) Est GFR (Non-Af Amer) BUN/Creatinine Ratio (10-20) Glucose (70-99) mg/dl Lactate (0.4-2.0) mmol/L Calcium (8.5-10.1) mg/dl Magnesium (1.8-2.4) mg/dl Total Bilirubin (0.2-1) mg/dl Direct Bilirubin (0-0.2) mg/dl AST (15-37) U/L ALT (12-78) U/L Alkaline Phosphatase (45-117) U/L Total Protein (6.4-8.2) gm/dl Albumin (3.4-5.0) gm/dl Lipase (73-393) U/L Diagnostic Findings CT SCAN OF THE ABDOMEN AND PELVIS WITH IV CONTRAST CLINICAL HISTORY: Generalized abdominal pain. History of metastatic colon cancer. COMPARISON STUDY: Abdominal CT dated 12/30/2018. TECHNIQUE: Following the IV administration of 95 cc of Optiray 320, CT scan of the abdomen and pelvis is performed from the lung bases to the proximal femora. Images are reviewed in the axial, sagittal, and coronal planes. IV contrast was administered without complication. A dose lowering technique was utilized adhering to the principles of ALARA. CT DOSE: 257.48 mGy.cm FINDINGS: Lung bases: The heart is normal in size and without pericardial effusion. Advanced emphysematous change is present at the lung bases. There is no airspace consolidation or pleural effusion. There is progressive multifocal pulmonary metastatic disease as compared to 12/30/2018. There are numerous (greater than 10) pulmonary lesions which measure up to 11 mm (right lower lobe image #26). There is a small hiatal hernia. Esophageal varices are noted. Liver: The contrast-enhanced liver is normal in size and contour. There is no intrahepatic biliary ductal dilatation. The hepatic veins and portal veins are patent. There has been marked progression of multifocal hepatic metastatic disease as compared to 12/30/2018. There are greater than 20 hepatic masses. The largest is in the left lobe seen on image #62 and measures approximately 6 x 6 cm. Gallbladder: The gallbladder is distended but otherwise normal in appearance. Spleen: Normal in size and attenuation. Pancreas: Moderately atrophic and grossly unremarkable. Adrenal glands: Adrenal glands appear hyperemic which can be seen in the setting of hypovolemia/shock. No adrenal lesion is identified. Kidneys: There is asymmetric cortical atrophy of the right kidney as compared to left. A percutaneous nephrostomy tube is in place on the right. There is no right-sided hydronephrosis. There is moderate left hydroureteronephrosis. This is new from 12/30/2018. There is slightly heterogeneous enhancement of the renal parenchyma. Abdominal vasculature: The abdominal aorta is normal in course and caliber noting moderate atherosclerotic calcification. Extensive thrombus is suggested within the inferior vena cava, best seen on image #191. Bowel: There is postoperative change of right hemicolectomy with ileocolic anastomosis. A stent is present in the rectosigmoid region. The rectal mucosa below the stent appears thickened, heterogeneous, and hyperemic and a rectal mass lesion is suspected. There is also soft tissue thickening identified around the stent. There is marked dilatation of the left colon upstream from the stent. The left colon measures up to 6 cm in diameter. The small bowel across the distended and fluid-filled measuring up to 5 cm. The appearance is consistent with a small bowel obstruction, likely at or just above the level of the colonic stent. There is mild diffuse wall thickening and hyperemia seen throughout the bowel involving both the small bowel and colon. There is no pneumatosis intestinalis or portal venous gas. Peritoneum: There is a small volume of abdominal ascites. No intraperitoneal free air is seen. Lymphadenopathy: Mildly enlarged left cardiophrenic lymph nodes measure up to 11 mm. A large right external iliac chain regan aggregate on image #301 has markedly increased in size, now measuring 3.4 x 3.1 cm (previously measuring 2.2 cm). Presumed confluent retroperitoneal lymphadenopathy is similar to previous. A retrocrural node on image #78 has increased in size measuring 2.3 x 2.1 cm. Pelvic viscera: The bladder, uterus, and adnexa are normal as visualized. Skeletal structures: The skeletal structures are osteopenic. No lytic or blastic lesions are seen. Soft tissues: The patient is cachectic. There is mild body wall edema. IMPRESSION: 1. There is postoperative change from right hemicolectomy with ileocolic anastomosis and stenting of the rectosigmoid colon. 2. There is evidence of high-grade colonic obstruction, at or just above the level of the rectosigmoid stent. There is also significant upstream distention of the small bowel. 3. There is a small volume of abdominopelvic ascites. No intraperitoneal free air is seen. Peritoneal carcinomatosis is not excluded. 4. There has been marked progression of multifocal metastatic disease. Progressive pulmonary, hepatic, and regan metastatic disease is detailed above. 5. There is mild diffuse wall thickening and hyperemia seen throughout the bowel. This is nonspecific and could be related to obstruction, hypovolemia, or possibly hypoproteinemia. Clinical correlation will be essential. 6. Hyperemia of the adrenal glands also suggests hypovolemia. Clinical correlation will be required. 7. Extensive thrombus is again seen within the IVC. 8. Moderate left hydronephrosis is new from 12/30/2018. 9. A percutaneous nephrostomy tube is seen on the right. There is no right-sided hydronephrosis. 10. Rectal wall thickening, irregularity, and hyperemia is noted below the stent and may represent a rectal mass. 11. Emphysema. 12. Additional findings as above.
[2019-02-28] MEDS ORDERED: fentaNYL 12 MCG/HR TDSY TD SCH (18:00)
--- NOTE | 2019-02-28 18:03 | History & Physical Report ---
Date of Service February 28, 2019 Assessment & Plan (1) Bowel obstruction: (2) Stricture of colon: (3) Neuroendocrine carcinoma: -Admit to MedSurg -Patient presenting from home reports of increased vomiting and abdominal pain -In the ED, CT ABD/pelvis showing high-grade obstruction at the level of her just above previously placed colonic stent -Patient with history of neuroendocrine carcinoma with diffuse metastases; currently receiving immunotherapy with Opdivo and Yervoy -Patient has very poor p.o. intake and has been TPN dependent; TPN to be continued -Lactic acid 2.6 -> 2.3; give IVF and continue to trend -Hemodynamically stable, does not appear septic -General surgery consulted and given extent of disease, would need transfer to tertiary care center if surgical intervention is needed -Given that obstruction is located around colonic stent, case was discussed with GI who will be taking the patient to the OR tonight for colonoscopy and urgent decompression -Continue supportive care with n.p.o., IVF, pain and nausea control (4) Hydronephrosis, left: -CT ABD/pelvis showing moderate hydronephrosis on the left; likely secondary to tumor burden -Has nephrostomy tube on the right that was placed for obstruction secondary to tumor burden -Will consult urology for patient to establish care for follow-up of left hydronephrosis (5) IVC thrombosis: (6) Pulmonary embolism: -On therapeutic dose Lovenox, will continue (7) COPD (chronic obstructive pulmonary disease): -No signs of acute exacerbation -Continue home inhalers (8) DVT prophylaxis: -On therapeutic dose Lovenox History of Present Illness Chief Complaint: Vomiting, abdominal pain Primary Care Provider: Zahida Mcgill DO 64-year-old female who presents the ED for evaluation of vomiting and abdominal pain. Patient has history of diffusely metastatic neuroendocrine carcinoma with extensive tumor burden on the colon s/p prior colonic stent. Patient also has very minimal p.o. intake and has been TPN dependent. Patient reports she always has some degree of nausea and vomiting at baseline however it has been increasing over the past 1 week. She also has noted increasing abdominal distention. She reports multiple episodes of diarrhea. She has been having some bright red bleeding per rectum however reports this is chronic for her secondary to her colonic stent. Bleeding has not increased from baseline. She denies hematemesis and coffee-ground emesis. No chest pain or shortness of breath. Denies lightheadedness, dizziness, diaphoresis, syncopal events. No fevers or chills. Patient has right nephrostomy tube, reports that urine has been somewhat darker in color however not cloudy or foul-smelling. Denies any other urinary symptoms. In the ED, CT ABD/pelvis shows high-grade obstruction at or just above colonic stent. Patient is hemodynamically stable. Initial lactate mildly elevated 2.6 with repeat being 2.3. Patient was given IV diphenhydramine, IV Reglan, IV morphine, IVF. Allergies Allergy/AdvReac Type Severity Reaction Status Date / Time No Known Allergies Allergy Verified 02/28/19 13:40 Home Medications Home Medications Medication Instructions Recorded Confirmed Type albuterol sulfate [ProAir HFA] 2 puff INHALATION Q6H PRN 04/24/18 02/28/19 History paroxetine HCl 30 mg PO QAM 04/24/18 02/28/19 History Symbicort 1 puff INHALATION QAM 05/25/18 02/28/19 History simethicone [Gas Relief] 80 mg PO DIRECTED PRN 10/13/18 02/28/19 History cyclobenzaprine 10 mg PO TID PRN #90 tab 10/20/18 02/28/19 Rx lorazepam 0.5 mg PO BID PRN 11/04/18 02/28/19 History enoxaparin 50 mg SUBCUT Q12H 30 Days #30 ml 01/04/19 02/28/19 Rx Spiriva Respimat 2 puff INHALATION QAM 02/28/19 02/28/19 History allopurinol 300 mg PO DAILY 02/28/19 02/28/19 History diphenoxylate-atropine 1 tab PO Q4H PRN 02/28/19 02/28/19 History fentanyl 12 mcg TRANSDERMAL Q72H 02/28/19 02/28/19 History loperamide [Imodium A-D] 2 mg PO Q4H PRN 02/28/19 02/28/19 History oxycodone 0.25 mg PO Q4H PRN 02/28/19 02/28/19 History Past Med/Surg History Medical History (Updated 02/28/19 @ 18:08 by DEJUAN Sandoval) Colon cancer (Chronic) S/P right hemicolectomy on 03/23/2017 (by Dr. Cheng). 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 S/P neoadjuvant modified FOLFOX 6 chemotherapy x 5 -Oxaliplatin induced the liver toxicity, received 5-Fluorouracil leucovorin x 7. Last cycle received on 02/12/2018. S/P right hemicolectomy on 03/23/2017 (by Dr. Cheng). 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 KRAS and BRAF mutation-->negative. 04/2018: -recurrent high-grade neuroendocrine carcinoma involving the retroperitoneal lymph regan region causing right hydronephrosis, S/P percutaneous nephrostomy drainage. -IVC thrombus, pulmonary embolism. - Essential thrombocythemia diagnosed in 2005, JAK2 mutation positive platelet count was over 1 million at that time the diagnosis. She is on hydroxyurea for that." Pulmonary embolism (Chronic) Stenosis colon s/p colonic stent Stricture of colon Thrombocytosis (Chronic) Surgical History (Updated 02/28/19 @ 18:08 by DEJUAN Sandoval) H/O rotator cuff surgery (Chronic) History of arthroscopy of left knee (Chronic) History of partial surgical removal of colon (Chronic) Nephrostomy status Right nephrostomy tube in place S/P removal of right ovary (Chronic) Family History Grandmother (Paternal) , of childbirth No problems noted. Grandfather (Paternal) , of lung cancer at age 7 No problems noted. Father , of protsate cancer No problems noted. Mother , of breas cancer with metastasis to lung and brain No problems noted. Brother Age: 63 Prostate cancer Brother Age: 57 Prostate cancer Sister Age: 50 No problems noted. Daughter Age: 27 No problems noted. 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 Beliefs That Will Affect Care: None marital status: Current Living Situation: Spouse Other Information That Helps Us Care for You: No Feels Safe at Home: Yes Safety Concerns: Feels Safe At This Time Smoking Status: Former smoker Tobacco Type: cigarettes ; Cigarettes Per Day: 1.5 ppd X 20 years ; Do You Dip or Chew Tobacco: No ; Smoking End Date: 1999 ; Second Hand Exposure: No ; Tobacco Cessation Education Requested by Patient: No Hx Alcohol Use: No Hx Substance Use: No Review of Systems Review of Systems: ROS per HPI, all other systems reviewed and negative Physical Exam Constitutional: + thin; no acute distress Eyes: PERRL, conjunctivae normal, anicteric sclerae ENMT: external ear and nose normal, oropharynx normal Respiratory: normal respiratory effort, lungs clear to auscultation Cardiovascular: Rate/Rhythm: regular rate and regular rhythm Vessels: normal peripheral pulses Extremities: + edema (+2 edema BLE) Gastrointestinal (Abdomen): Inspection/Auscultation: + abdomen distended; + abnormal bowel sounds (Minimal bowel sounds present) Percussion/Palpation: + abdomen tender (Diffuse) and + abdomen rigid; no guarding and no hepatosplenomegaly Musculoskeletal: no cyanosis or clubbing, extremities motor strength 5/5 Skin: no rashes, warm and dry Neurologic: PERRL, EOMI, accommodation nl, no face palsy, no dysarthria Psychiatric: A+Ox3, euthymic affect Results & Data Vital Signs (Past 12 Hours) Vital Signs Temp Pulse Pulse Resp BP BP Pulse Ox 02/28/19 17:24 103 H 18 116/70 02/28/19 16:56 97 H 28 H 113/70 97 02/28/19 15:47 96 H 25 H 115/72 98 02/28/19 14:45 101 H 22 108/68 98 02/28/19 14:14 95 H 24 110/68 98 02/28/19 13:10 101 H 22 119/71 99 02/28/19 12:28 96 02/28/19 12:14 36.4 C L 104 H 18 129/79 99 Laboratory Results Short CBC 02/28/19 02/28/19 02/28/19 Range/Units 12:45 12:45 13:52 WBC 9.30 (4.8-10.8) K/uL Hgb 9.2 L (12.0-16.0) g/dL Hct 28.7 L (37-47) % Plt Count 474 H (130-400) K/uL Lactate 2.6 H* 2.3 H* (0.4-2.0) mmol/L BMP 02/28/19 12:45 Sodium 139 Potassium 3.6 Chloride 105 Carbon Dioxide 28 BUN 50 H Creatinine 1.00 Glucose 138 H Calcium 8.3 L Liver Function 02/28/19 Range/Units 12:45 Total Bilirubin 0.5 (0.2-1) mg/dl Direct Bilirubin 0.2 (0-0.2) mg/dl AST 50 H (15-37) U/L ALT 21 (12-78) U/L Alkaline Phosphatase 379 H (45-117) U/L Albumin 1.8 L (3.4-5.0) gm/dl Diagnostic Findings CT ABD/PELVIS IMPRESSION: 1. There is postoperative change from right hemicolectomy with ileocolic anastomosis and stenting of the rectosigmoid colon. 2. There is evidence of high-grade colonic obstruction, at or just above the level of the rectosigmoid stent. There is also significant upstream distention of the small bowel. 3. There is a small volume of abdominopelvic ascites. No intraperitoneal free air is seen. Peritoneal carcinomatosis is not excluded. 4. There has been marked progression of multifocal metastatic disease. Progressive pulmonary, hepatic, and regan metastatic disease is detailed above. 5. There is mild diffuse wall thickening and hyperemia seen throughout the bowel. This is nonspecific and could be related to obstruction, hypovolemia, or possibly hypoproteinemia. Clinical correlation will be essential. 6. Hyperemia of the adrenal glands also suggests hypovolemia. Clinical correlation will be required. 7. Extensive thrombus is again seen within the IVC. 8. Moderate left hydronephrosis is new from 12/30/2018. 9. A percutaneous nephrostomy tube is seen on the right. There is no right-sided hydronephrosis. 10. Rectal wall thickening, irregularity, and hyperemia is noted below the stent and may represent a rectal mass. 11. Emphysema. 12. Additional findings as above. Code Status & VTE Plan Code Status Patient is a full code as per my discussion with her. VTE Prophylaxis Plan VTE Prophylaxis will be ordered: Yes Supervising Physician Co-Signing Physician Notes Pt was seen and examined . Agreed with Anya ZAIDI exam, assessment and plan. 64-year-old female with PMH of metastatic neuroendocrine carcinoma s/p colonic stent, COPD, PE, bowel obstruction, hydronephrosis who presents the ED for vomiting and abdominal pain. Pt was in the hospital 2 months ago for bowel obstruction. She was discharged on TPN. Pt said that she has not been able to tolerate anything by months in the past 3 weeks due to vomiting. She said that she also has diarrhea. She continues to be in TPN. She said that she saw Oncology at [facility] and recommended to continue the immunotherapy with Dr. Chung. Pt said that her abdomen feels the same today like when she was admitting 2 months ago. She said that she is having discomfort in the left lower abdomen as well. CT abd/pelvis showed a stent is present in the rectosigmoid region. The rectal mucosa below the stent appears thickened, heterogeneous, and hyperemic and a rectal mass lesion is suspected. There is also soft tissue thickening identified around the stent. There is marked dilatation of the left colon upstream from the stent; and marked progression of multifocal metastatic disease. Progressive pulmonary, hepatic, and regan metastatic disease; Moderate left hydronephrosis is new from 12/30/2018. Surgery on board and recommended conservative management for now, but if pt will need surgery, given extent of disease, she will need to transfer to tertiary center. GI was consulted and at first recommended to transfer to [place] to get eval by intervention radiology. Case discussed with IR in [place] that recommended to discuss the case with GI in [place]. then, case discussed with GI in [place] who was ok to evaluate pt, but does not guarantee if they will take the pt to OR over the weekend since she is stable. Pt does not want to transfer to [facility] if she is not going to undergo any surgical procedure. She does not want to go to [place] and when she gets there and places only under observation. We discussed the case again with GI team at our facility who contacted Dr. Woodward who is available tonight to take her to OR for colonoscopy and urgent decompression. Pt agreed to stay at [facility]. NG tube placed as per GI recommendation. Continue supportive care with IVF, antiemetic, pain control and keep NPO. Continue monitor closely. (1) Pulmonary embolism Acute cor pulmonale presence: without acute cor pulmonale Chronicity: acute Pulmonary embolism type: unspecified Qualified Code(s): I26.99 - Other pulmonar y embolism without acute cor pulmonale
[2019-02-28] MEDS: SODIUM CHLORIDE 0.9% 1000ML 1,000 ML IV SCH (18:46)
--- NOTE | 2019-02-28 18:47 | Emergency Department Note ---
Entered by Ioana Uribe acting as a scribe for History of Present Illness General Chief complaint: Referred by Doctor Stated complaint: REFERRED BY DOCTOR Time Seen by Provider: 02/28/19 12:24 Source: patient History of Present Illness Onset (ago): minute(s) (prior to arrival) Location: abdomen Pain Consistency: + other (episode) Maximum Pain Intensity: 8 Quality: + other (referral by a doctor) Associated symptoms: + denies other symptoms (hematemesis, melena), + loss of appetite, + nausea/vomiting and + other (diarrhea, abdominal pain); no chest pain, no fever/chills (fever) and no shortness of breath The patient is a 64 year old female who presents to the Emergency Room with complaints of an episode of a referral by a doctor occurring prior to arrival. The patient states that she has colon cancer that has metastasized to other parts of her abdomen and lungs. She states that she has done chemotherapy and radiation, but is no longer. She notes that she is currently taking immunotherapy. She reports that over the last 3 weeks she has been having increased abdominal pain. She states that along with it she has been having vomiting and diarrhea. She reports that she has not been able to eat in the past 3 weeks, but has been using TPN feedings. The patient notes that she does have some blood in her stool, but was told that may be normal given the stent in her rectum. She reports that she has been having lab work done regularly and her albumin level was elevated 2 days ago. The patient denies hematemesis, melena, chest pain, new shortness of breath, fever, and recent falls. Home Medications Home Medications Medication Instructions Recorded Confirmed Type albuterol sulfate [ProAir HFA] 2 puff INHALATION Q6H PRN 04/24/18 02/28/19 History paroxetine HCl 30 mg PO QAM 04/24/18 02/28/19 History Symbicort 1 puff INHALATION QAM 05/25/18 02/28/19 History simethicone [Gas Relief] 80 mg PO DIRECTED PRN 10/13/18 02/28/19 History cyclobenzaprine 10 mg PO TID PRN #90 tab 10/20/18 02/28/19 Rx lorazepam 0.5 mg PO BID PRN 11/04/18 02/28/19 History enoxaparin 50 mg SUBCUT Q12H 30 Days #30 ml 01/04/19 02/28/19 Rx Spiriva Respimat 2 puff INHALATION QAM 02/28/19 02/28/19 History allopurinol 300 mg PO DAILY 02/28/19 02/28/19 History diphenoxylate-atropine 1 tab PO Q4H PRN 02/28/19 02/28/19 History fentanyl 12 mcg TRANSDERMAL Q72H 02/28/19 02/28/19 History loperamide [Imodium A-D] 2 mg PO Q4H PRN 02/28/19 02/28/19 History oxycodone 0.25 mg PO Q4H PRN 02/28/19 02/28/19 History Allergies Allergy/AdvReac Type Severity Reaction Status Date / Time No Known Allergies Allergy Verified 02/28/19 13:40 Past Med/Surg History Medical History (Updated 02/28/19 @ 18:08 by DEJUAN Sandoval) Colon cancer (Chronic) S/P right hemicolectomy on 03/23/2017 (by Dr. Cheng). 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 S/P neoadjuvant modified FOLFOX 6 chemotherapy x 5 -Oxaliplatin induced the liver toxicity, received 5-Fluorouracil leucovorin x 7. Last cycle received on 02/12/2018. S/P right hemicolectomy on 03/23/2017 (by Dr. Cheng). 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 KRAS and BRAF mutation-->negative. 04/2018: -recurrent high-grade neuroendocrine carcinoma involving the retroperitoneal lymph regan region causing right hydronephrosis, S/P percutaneous nephrostomy drainage. -IVC thrombus, pulmonary embolism. - Essential thrombocythemia diagnosed in 2005, JAK2 mutation positive platelet count was over 1 million at that time the diagnosis. She is on hydroxyurea for that." Pulmonary embolism (Chronic) Stenosis colon s/p colonic stent Stricture of colon Thrombocytosis (Chronic) Surgical History (Updated 02/28/19 @ 18:08 by DEJUAN Sandoval) H/O rotator cuff surgery (Chronic) History of arthroscopy of left knee (Chronic) History of partial surgical removal of colon (Chronic) Nephrostomy status Right nephrostomy tube in place S/P removal of right ovary (Chronic) Family History Grandmother (Paternal) , of childbirth No problems noted. Grandfather (Paternal) , of lung cancer at age 7 No problems noted. Father , of protsate cancer No problems noted. Mother , of breas cancer with metastasis to lung and brain No problems noted. Brother Age: 63 Prostate cancer Brother Age: 57 Prostate cancer Sister Age: 50 No problems noted. Daughter Age: 27 No problems noted. Other No pertinent family history Social History Preferred Language: Tanzanian Communication Ability: Effective Bioinformatics Analyst Required: No Beliefs That Will Affect Care: None marital status: Current Living Situation: Spouse Other Information That Helps Us Care for You: No Feels Safe at Home: Yes Safety Concerns: Feels Safe At This Time Smoking Status: Former smoker Tobacco Type: cigarettes ; Cigarettes Per Day: 1.5 ppd X 20 years ; Do You Dip or Chew Tobacco: No ; Smoking End Date: 1999 ; Second Hand Exposure: No ; Tobacco Cessation Education Requested by Patient: No Hx Alcohol Use: No Hx Substance Use: No Review of Systems See HPI for pertinent positives & negatives. and A total of 10 systems reviewed and were otherwise negative Physical Exam Vital Signs Vital Signs - 24 hr 02/28/19 12:14 02/28/19 12:28 02/28/19 13:10 Temperature 36.4 C L Temperature Source Oral Pulse Rate 104 H Pulse Rate [Left Finger] 101 H Respiratory Rate 18 22 Blood Pressure 129/79 Blood Pressure [Right Arm] 119/71 Blood Pressure Mean 95 Blood Pressure Mean [Right Arm] 87 Pulse Oximetry 99 96 99 Oxygen Delivery Method Room Air Room Air Room Air Sepsis Recent Fever Within 48 Hours No Sepsis New/Unexplained Change in Mental Status No Sepsis Action Taken by Nursing No Action Required 02/28/19 14:14 02/28/19 14:45 Temperature Temperature Source Pulse Rate Pulse Rate [Left Finger] 95 H 101 H Respiratory Rate 24 22 Blood Pressure Blood Pressure [Right Arm] 110/68 108/68 Blood Pressure Mean Blood Pressure Mean [Right Arm] 82 81 Pulse Oximetry 98 98 Oxygen Delivery Method Room Air Room Air Sepsis Recent Fever Within 48 Hours Sepsis New/Unexplained Change in Mental Status Sepsis Action Taken by Nursing GENERAL: She is oriented to person, place, and time. She appears cachectic. She does not appear distressed. HENT: Exam performed. - Head: Normocephalic and atraumatic. - Right Ear: External ear normal. No mastoid tenderness. - Left Ear: External ear normal. No mastoid tenderness. - Mouth/Throat: The oropharynx is clear and moist. No trismus in the jaw. No dental abscesses or uvula swelling. No oropharyngeal exudate or tonsillar abscesses. EYES: Conjunctivae and EOM are normal. Pupils are equal, round, and reactive to light. Right eye exhibits no discharge. Left eye exhibits no discharge. No scleral icterus. NECK: Normal range of motion. Neck supple. No JVD present. No spinous process tenderness present. No carotid bruit present. No rigidity. No tracheal deviation and normal range of motion present. No Brudzinski's sign and no Kernig's sign noted. CV: Normal rate, regular rhythm, normal heart sounds and intact distal pulses. There is no peripheral edema. Palpable radial pulses bue. PULM/CHEST: Effort normal and breath sounds normal. No respiratory distress. No stridor. She has no wheezes. She has no rales. Chest Wall: She exhibits no tenderness. Port in her right anterior chest with no surrounding erythema. ABD: There are many abdominal scars. Ecchymosis over the abdomen presumed from Lovenox shots. Abdomen is distended and diffuse pain on palpation of the abdomen. MUSC/SKEL: Normal range of motion. There is no peripheral edema, tenderness or deformity. LYMPH: No cervical adenopathy. NEURO: She is alert and oriented to person, place, and time. She has normal strength. No cranial nerve deficit or sensory deficit. Coordination and gait normal. GCS eye subscore is 4. GCS verbal subscore is 5. GCS motor subscore is 6. cerbellar tests wnl. SKIN: Skin is warm and dry. She is not diaphoretic. PSYCH: She has a normal mood and affect. Her behavior is normal. Judgment and thought content normal. Course Course 1232: The patient was evaluated in room A10. A complete history and physical exam was performed. 1256: Records were reviewed from [facility]. The patient is a patient of Dr. Chung's - Hematology Oncology. The patient was diagnosed with cecal adenocarcinoma status post exploratory laparotomy. She was found to have unresectable disease. She has a high grade neuroendocrine carcinoma extending to the pericolonic adipose tissue. 1346: I went to reevaluate the patient and she feels much better after getting Reglan and Morphine. Labs are within normal limits with the exception of an elevated lactic acid of 2.6. She has no reported fever. No leukocytosis. We are going to repeat her lactic acid after her fluid bolus is complete. Once her CT results are back, we will discuss the results with her oncology team. 1407: I reevaluated the patient and updated her on her test results. Her imaging showed a bowel obstruction. I discussed the patint's case with DEJUAN Sandoval -[facility] Hospitalist. She will evaluate the patient for further management u adrianna Schneider's service. She would like me to speak with surgery to have on consult. 1412: I discussed the patient's case with Tamela Clifford PA-C- General Surgery. She states that they will be on consult for the patient. Administered Medications Sodium Chloride (Nss 1000ml) 1,000 mls @ 100 mls/hr IV .Q10H VERONICA Stop: 03/30/19 17:16 Last Admin: 02/28/19 18:46 Dose: 100 mls/hr Documented by: [id number] Discontinued Medications Diphenhydramine HCl (Benadryl) 12.5 mg IV NOW STA Stop: 02/28/19 12:40 Last Admin: 02/28/19 12:47 Dose: 12.5 mg Documented by: [id number] Sodium Chloride (Nss 1000ml) 1,000 mls @ 999 mls/hr IV .Q1H1M ONE Stop: 02/28/19 13:24 Last Infusion: 02/28/19 13:40 Dose: 0 mls/hr Documented by: [id number] Admin: 02/28/19 12:46 Dose: 999 mls/hr Documented by: [id number] Ioversol (Optiray 320 100ml) 95 ml IV ONCE PRN PRN Reason: Interaction Checking Stop: 03/04/19 13:28 Last Admin: 02/28/19 13:30 Dose: 95 ml Documented by: [id number] Metoclopramide HCl (Reglan) 5 mg IV ONE ONE Stop: 02/28/19 12:40 Last Admin: 02/28/19 12:47 Dose: 5 mg Documented by: [id number] Morphine Sulfate (Morphine Sulfate) 4 mg IV NOW STA Stop: 02/28/19 12:25 Last Admin: 02/28/19 12:47 Dose: 4 mg Documented by: [id number] Morphine Sulfate (Morphine Sulfate) 4 mg IV NOW STA Stop: 02/28/19 14:14 Last Admin: 02/28/19 14:19 Dose: 4 mg Documented by: [id number] Morphine Sulfate (Morphine Sulfate) 4 mg IV NOW STA Stop: 02/28/19 15:43 Last Admin: 02/28/19 15:46 Dose: 4 mg Documented by: [id number] Medical Decision Making Medical Records Attestation: I reviewed the patient's medical records. Home Medications Current Medication List: was personally reviewed by me Laboratory Data Attestation: I reviewed the patient's lab results. Result diagrams: 02/28/19 12:45 02/28/19 12:45 Lab Results 02/28/19 02/28/19 02/28/19 Range/Units 12:45 12:45 12:45 WBC 9.30 (4.8-10.8) K/uL RBC 3.43 L (4.2-5.4) M/uL Hgb 9.2 L (12.0-16.0) g/dL Hct 28.7 L (37-47) % MCV 83.7 (80-100) fL MCH 26.8 (25-34) pg MCHC 32.1 (32-36) g/dL RDW Std Deviation 49.9 H (36.4-46.3) fL RDW Coeff of Ysabel 16.6 H (11.5-14.5) % Plt Count 474 H (130-400) K/uL MPV 9.6 (7.4-10.4) fL Absolute Nucleated RBC 0.07 H (0-0) K/uL Nucleated RBC % (auto) 0.7 % Neutrophils % (Manual) 85.3 % Lymphocytes % (Manual) 2.6 % Monocytes % (Manual) 10.4 % Metamyelocytes % (Man) 1.7 % Neutrophils # (Manual) 7.93 H (1.4-6.5) K/uL Total Absolute Neuts 7.93 H (1.4-6.5) K/uL Lymphocytes # (Manual) 0.24 L (1.2-3.4) K/uL Total Abs Lymphocytes 0.24 L (1.2-3.4) K/uL Monocytes # (Manual) 0.97 H (0.11-0.59) K/uL Metamyelocytes # (Man) 0.16 H (0-0) K/uL Dohle Bodies 1+ PT 11.3 (9.0-12.0) Seconds INR 1.1 (0.9-1.1) APTT 32.2 H (21.0-31.0) Seconds PTT Ratio 1.2 Sodium 139 (136-145) mmol/L Potassium 3.6 (3.5-5.1) mmol/L Chloride 105 (98-107) mmol/L Carbon Dioxide 28 (21-32) mmol/L Anion Gap 7.0 (3-11) BUN 50 H (7-18) mg/dl Creatinine 1.00 (0.6-1.2) mg/dl Est Cr Clr Drug Dosing 41.8 ml/min Est GFR ( Amer) 69.9 Est GFR (Non-Af Amer) 60.3 BUN/Creatinine Ratio 49.8 H (10-20) Glucose 138 H (70-99) mg/dl Lactate (0.4-2.0) mmol/L Calcium 8.3 L (8.5-10.1) mg/dl Magnesium 2.5 H (1.8-2.4) mg/dl Total Bilirubin 0.5 (0.2-1) mg/dl Direct Bilirubin 0.2 (0-0.2) mg/dl AST 50 H (15-37) U/L ALT 21 (12-78) U/L Alkaline Phosphatase 379 H (45-117) U/L Total Protein 6.2 L (6.4-8.2) gm/dl Albumin 1.8 L (3.4-5.0) gm/dl Lipase 19 L (73-393) U/L 02/28/19 02/28/19 Range/Units 12:45 13:52 WBC (4.8-10.8) K/uL RBC (4.2-5.4) M/uL Hgb (12.0-16.0) g/dL Hct (37-47) % MCV (80-100) fL MCH (25-34) pg MCHC (32-36) g/dL RDW Std Deviation (36.4-46.3) fL RDW Coeff of Ysabel (11.5-14.5) % Plt Count (130-400) K/uL MPV (7.4-10.4) fL Absolute Nucleated RBC (0-0) K/uL Nucleated RBC % (auto) % Neutrophils % (Manual) % Lymphocytes % (Manual) % Monocytes % (Manual) % Metamyelocytes % (Man) % Neutrophils # (Manual) (1.4-6.5) K/uL Total Absolute Neuts (1.4-6.5) K/uL Lymphocytes # (Manual) (1.2-3.4) K/uL Total Abs Lymphocytes (1.2-3.4) K/uL Monocytes # (Manual) (0.11-0.59) K/uL Metamyelocytes # (Man) (0-0) K/uL Dohle Bodies PT (9.0-12.0) Seconds INR (0.9-1.1) APTT (21.0-31.0) Seconds PTT Ratio Sodium (136-145) mmol/L Potassium (3.5-5.1) mmol/L Chloride (98-107) mmol/L Carbon Dioxide (21-32) mmol/L Anion Gap (3-11) BUN (7-18) mg/dl Creatinine (0.6-1.2) mg/dl Est Cr Clr Drug Dosing ml/min Est GFR ( Amer) Est GFR (Non-Af Amer) BUN/Creatinine Ratio (10-20) Glucose (70-99) mg/dl Lactate 2.6 H* 2.3 H* (0.4-2.0) mmol/L Calcium (8.5-10.1) mg/dl Magnesium (1.8-2.4) mg/dl Total Bilirubin (0.2-1) mg/dl Direct Bilirubin (0-0.2) mg/dl AST (15-37) U/L ALT (12-78) U/L Alkaline Phosphatase (45-117) U/L Total Protein (6.4-8.2) gm/dl Albumin (3.4-5.0) gm/dl Lipase (73-393) U/L Imaging Data Radiologist's Impression: Radiology results as stated below per my review and the radiologist's interpretation: CT SCAN OF THE ABDOMEN AND PELVIS WITH IV CONTRAST CLINICAL HISTORY: Generalized abdominal pain. History of metastatic colon cancer. COMPARISON STUDY: Abdominal CT dated 12/30/2018. TECHNIQUE: Following the IV administration of 95 cc of Optiray 320, CT scan of the abdomen and pelvis is performed from the lung bases to the proximal femora. Images are reviewed in the axial, sagittal, and coronal planes. IV contrast was administered without complication. A dose lowering technique was utilized adhering to the principles of ALARA. CT DOSE: 257.48 mGy.cm FINDINGS: Lung bases: The heart is normal in size and without pericardial effusion. Advanced emphysematous change is present at the lung bases. There is no airspace consolidation or pleural effusion. There is progressive multifocal pulmonary metastatic disease as compared to 12/30/2018. There are numerous (greater than 10) pulmonary lesions which measure up to 11 mm (right lower lobe image #26). There is a small hiatal hernia. Esophageal varices are noted. Liver: The contrast-enhanced liver is normal in size and contour. There is no intrahepatic biliary ductal dilatation. The hepatic veins and portal veins are patent. There has been marked progression of multifocal hepatic metastatic disease as compared to 12/30/2018. There are greater than 20 hepatic masses. The largest is in the left lobe seen on image #62 and measures approximately 6 x 6 cm. Gallbladder: The gallbladder is distended but otherwise normal in appearance. Spleen: Normal in size and attenuation. Pancreas: Moderately atrophic and grossly unremarkable. Adrenal glands: Adrenal glands appear hyperemic which can be seen in the setting of hypovolemia/shock. No adrenal lesion is identified. Kidneys: There is asymmetric cortical atrophy of the right kidney as compared to left. A percutaneous nephrostomy tube is in place on the right. There is no right-sided hydronephrosis. There is moderate left hydroureteronephrosis. This is new from 12/30/2018. There is slightly heterogeneous enhancement of the renal parenchyma. Abdominal vasculature: The abdominal aorta is normal in course and caliber noting moderate atherosclerotic calcification. Extensive thrombus is suggested within the inferior vena cava, best seen on image #191. Bowel: There is postoperative change of right hemicolectomy with ileocolic anastomosis. A stent is present in the rectosigmoid region. The rectal mucosa below the stent appears thickened, heterogeneous, and hyperemic and a rectal mass lesion is suspected. There is also soft tissue thickening identified around the stent. There is marked dilatation of the left colon upstream from the stent. The left colon measures up to 6 cm in diameter. The small bowel across the distended and fluid-filled measuring up to 5 cm. The appearance is consistent with a small bowel obstruction, likely at or just above the level of the colonic stent. There is mild diffuse wall thickening and hyperemia seen throughout the bowel involving both the small bowel and colon. There is no pneumatosis intestinalis or portal venous gas. Peritoneum: There is a small volume of abdominal ascites. No intraperitoneal free air is seen. Lymphadenopathy: Mildly enlarged left cardiophrenic lymph nodes measure up to 11 mm. A large right external iliac chain regan aggregate on image #301 has markedly increased in size, now measuring 3.4 x 3.1 cm (previously measuring 2.2 cm). Presumed confluent retroperitoneal lymphadenopathy is similar to previous. A retrocrural node on image #78 has increased in size measuring 2.3 x 2.1 cm. Pelvic viscera: The bladder, uterus, and adnexa are normal as visualized. Skeletal structures: The skeletal structures are osteopenic. No lytic or blastic lesions are seen. Soft tissues: The patient is cachectic. There is mild body wall edema. IMPRESSION: 1. There is postoperative change from right hemicolectomy with ileocolic anastomosis and stenting of the rectosigmoid colon. 2. There is evidence of high-grade colonic obstruction, at or just above the level of the rectosigmoid stent. There is also significant upstream distention of the small bowel. 3. There is a small volume of abdominopelvic ascites. No intraperitoneal free air is seen. Peritoneal carcinomatosis is not excluded. 4. There has been marked progression of multifocal metastatic disease. Progressive pulmonary, hepatic, and regan metastatic disease is detailed above. 5. There is mild diffuse wall thickening and hyperemia seen throughout the bowel. This is nonspecific and could be related to obstruction, hypovolemia, or possibly hypoproteinemia. Clinical correlation will be essential. 6. Hyperemia of the adrenal glands also suggests hypovolemia. Clinical correlation will be required. 7. Extensive thrombus is again seen within the IVC. 8. Moderate left hydronephrosis is new from 12/30/2018. 9. A percutaneous nephrostomy tube is seen on the right. There is no right-sided hydronephrosis. 10. Rectal wall thickening, irregularity, and hyperemia is noted below the stent and may represent a rectal mass. 11. Emphysema. 12. Additional findings as above. ACT 112: Positive. There are findings on this exam that require communication between the performing entity and the patient following Patient Test Result Information Act ([place] Act 112) guidelines. Electronically signed by: Willy Chahal M.D. 02/28/2019 1:53 PM ECG Data Attestation: I personally reviewed and interpreted this ECG as follows: Indication: + abdominal pain Rate (beats per minute): 106 Rhythm: + sinus tachycardia ECG Intervals/blocks: + Normal QRS, + Normal OK and + Normal QT-c ECG ST segments: no ST depression and no ST elevation Blood Pressure Blood Pressure Findings: Normal blood pressure Blood Pressure Disposition: did not require urgent referral MDM Narrative 1232: The patient was evaluated in room A10. A complete history and physical exam was performed. 1256: Records were reviewed from [facility]. The patient is a patient of Dr. Chung's - Hematology Oncology. The patient was diagnosed with cecal adenocarcinoma status post exploratory laparotomy. She was found to have unresectable disease. She has a high grade neuroendocrine carcinoma extending to the pericolonic adipose tissue. 1346: I went to reevaluate the patient and she feels much better after getting Reglan and Morphine. Labs are within normal limits with the exception of an elevated lactic acid of 2.6. She has no reported fever. No leukocytosis. We are going to repeat her lactic acid after her fluid bolus is complete. Once her CT results are back, we will discuss the results with her oncology team. 1407: I reevaluated the patient and updated her on her test results. Her imaging showed a bowel obstruction. I discussed the patint's case with DEJUAN Sandoval -[facility] Hospitalist. She will evaluate the patient for further management under Dr. Schneider's service. She would like me to speak with surgery to have on consult. 1412: I discussed the patient's case with Tamela Clifford PA-C- General Surgery. She states that they will be on consult for the patient. Impression & Plan Bowel obstruction Discharge Plan Visit Data *Final* Discharge Date/Time: 02/28/19 15:48 Chief Complaint: Referred by Doctor Stated Complaint: REFERRED BY DOCTOR ED Provider: Jairo Moyer Discharge Problem: Bowel obstruction Patient Disposition: Admitted As Inpatient Discharge Instructions Interventions: ED Discharge Assessment Last Done: 02/28/19 15:48 The scribe's documentation has been prepared under my direction and personally reviewed by me in its entirety. I confirm that the note above accurately reflects all work, treatment, procedures, and medical decision making performed by me.
[2019-02-28 18:54] LABS: Appearance Urine Clear (Clear); Bacteria Urine Automated Negative (Negative); Blood Urine Negative (Negative); Color Urine Dark Yellow; Glucose Urine UA Negative (Negative); Ketones Urine Negative (Negative); Leukocyte Esterase Urine Trace (Negative); Nitrite Urine Negative (Negative); Protein Urine Trace (Negative); Specific Gravity Urine > 1.045 (1.000-1.030); Urobilinogen Urine Negative (Negative)
[2019-02-28 18:57] LABS: Bilirubin Urine Negative (Negative); Ictotest Urine Negative (Negative)
[2019-02-28 19:06] LABS: RBC Urine Automated 0-4 /hpf (0-4)
[2019-02-28] MEDS: MoRPHine SULFATE 4 MG/ML 1 ML CARP\\VIAL IV PRN (20:06)
[2019-02-28] MEDS: ENOXAPARIN INJ 60 MG/0.6 ML SYR SQ SCH (20:06)
[2019-02-28] MEDS ORDERED: MINERAL OIL 30 ML UDC ONE (21:21)
--- NOTE | 2019-02-28 22:01 | History & Physical Bridge Note ---
Date of Service February 28, 2019 History & Physical Bridge Note I have examined the patient, reviewed the History & Physical and in the interval since the performance of the History & Physical I have noted the following changes of clinical significance: no changes noted
--- NOTE | 2019-02-28 22:01 | Gastrointestinal Consultation ---
Date of Consultation February 28, 2019 Assessment & Plan (1) Obstruction, colon: History of Present Illness Attending Physician: Shea Schneider MD 64 years old female patient with metastatic neuroendocrine tumor, Colonic obstruction due to rectosigmoid mass, s/p colonic stenting in the past, presenting with abdominal pain, distention, nausea and vomiting. CT scan showed high grade colonic obstruction at the prior colonic stent. Allergies Allergy/AdvReac Type Severity Reaction Status Date / Time No Known Allergies Allergy Verified 02/28/19 13:40 Home Medications Home Medications Medication Instructions Recorded Confirmed Type albuterol sulfate [ProAir HFA] 2 puff INHALATION Q6H PRN 04/24/18 02/28/19 History paroxetine HCl 30 mg PO QAM 04/24/18 02/28/19 History Symbicort 1 puff INHALATION QAM 05/25/18 02/28/19 History simethicone [Gas Relief] 80 mg PO DIRECTED PRN 10/13/18 02/28/19 History cyclobenzaprine 10 mg PO TID PRN #90 tab 10/20/18 02/28/19 Rx lorazepam 0.5 mg PO BID PRN 11/04/18 02/28/19 History enoxaparin 50 mg SUBCUT Q12H 30 Days #30 ml 01/04/19 02/28/19 Rx Spiriva Respimat 2 puff INHALATION QAM 02/28/19 02/28/19 History allopurinol 300 mg PO DAILY 02/28/19 02/28/19 History diphenoxylate-atropine 1 tab PO Q4H PRN 02/28/19 02/28/19 History fentanyl 12 mcg TRANSDERMAL Q72H 02/28/19 02/28/19 History loperamide [Imodium A-D] 2 mg PO Q4H PRN 02/28/19 02/28/19 History oxycodone 0.25 mg PO Q4H PRN 02/28/19 02/28/19 History Patient History Medical History (Updated 02/28/19 @ 22:01 by Senia Woodward MD) Colon cancer (Chronic) S/P right hemicolectomy on 03/23/2017 (by Dr. Cheng). 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 S/P neoadjuvant modified FOLFOX 6 chemotherapy x 5 -Oxaliplatin induced the liver toxicity, received 5-Fluorouracil leucovorin x 7. Last cycle received on 02/12/2018. S/P right hemicolectomy on 03/23/2017 (by Dr. Cheng). 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 KRAS and BRAF mutation-->negative. 04/2018: -recurrent high-grade neuroendocrine carcinoma involving the retroperitoneal lymph regan region causing right hydronephrosis, S/P percutaneous nephrostomy drainage. -IVC thrombus, pulmonary embolism. - Essential thrombocythemia diagnosed in 2005, JAK2 mutation positive platelet count was over 1 million at that time the diagnosis. She is on hydroxyurea for that." Pulmonary embolism (Chronic) Stenosis colon s/p colonic stent Stricture of colon Thrombocytosis (Chronic) Surgical History (Updated 02/28/19 @ 18:08 by DEJUAN Sandoval) H/O rotator cuff surgery (Chronic) History of arthroscopy of left knee (Chronic) History of partial surgical removal of colon (Chronic) Nephrostomy status Right nephrostomy tube in place S/P removal of right ovary (Chronic) Family History Grandmother (Paternal) , of childbirth No problems noted. Grandfather (Paternal) , of lung cancer at age 7 No problems noted. Father , of protsate cancer No problems noted. Mother , of breas cancer with metastasis to lung and brain No problems noted. Brother Age: 63 Prostate cancer Brother Age: 57 Prostate cancer Sister Age: 50 No problems noted. Daughter Age: 27 No problems noted. Other No pertinent family history Social History Preferred Language: Pashto Communication Ability: Effective [place] Applier Required: No Beliefs That Will Affect Care: None marital status: Current Living Situation: Spouse Other Information That Helps Us Care for You: No Feels Safe at Home: Yes Safety Concerns: Feels Safe At This Time Smoking Status: Former smoker Tobacco Type: cigarettes ; Cigarettes Per Day: 1.5 ppd X 20 years ; Do You Dip or Chew Tobacco: No ; Smoking End Date: 1999 ; Second Hand Exposure: No ; Tobacco Cessation Education Requested by Patient: No Hx Alcohol Use: No Hx Substance Use: No Review of Systems Eyes: no eye pain and no worsening vision Ear, Nose, Mouth, Throat: no tinnitus, no dizziness, no nasal discharge and no epistaxis Respiratory: no cough, no dyspnea, no dyspnea on exertion and no wheezing Cardiovascular: no chest pain, no orthopnea, no palpitations and no edema Gastrointestinal: as per Subjective / HPI Musculoskeletal: no stiffness and no myalgia Neurologic: no localized weakness, no paralysis, no tremor(s) and no headache(s) Endocrine: no polydipsia and no polyuria Physical Exam Eyes: PERRL, conjunctivae normal, anicteric sclerae ENMT: external ear and nose normal, oropharynx normal Neck: normal visual inspection and trachea midline Respiratory: normal respiratory effort, lungs clear to auscultation Auscultation: no wheezes Cardiovascular: RRR, no murmur, no edema Gastrointestinal (Abdomen): normal bowel sounds, soft, nontender, no hepatosplenomegaly Skin: no rashes, warm and dry Results & Data Vital Signs (Past 12 Hours) Vital Signs Temp Pulse Pulse Resp BP BP Pulse Ox 02/28/19 17:24 103 H 18 116/70 02/28/19 16:56 97 H 28 H 113/70 97 02/28/19 15:47 96 H 25 H 115/72 98 02/28/19 14:45 101 H 22 108/68 98 02/28/19 14:14 95 H 24 110/68 98 02/28/19 13:10 101 H 22 119/71 99 02/28/19 12:28 96 02/28/19 12:14 36.4 C L 104 H 18 129/79 99
--- NOTE | 2019-02-28 22:07 | Anesthesiology Consultation ---
Date of Service February 28, 2019 Assessment & Plan Chart Review Chart Review: Acceptable Risk for Surgery and Patient NOT seen in Pre Admission Testing Consults Requested none ASA ASA4 Proposed Anesthesia Anesthesia Type: MAC Risk / Benefits Reviewed With: PT / POA / Parent / Guardian, Accepts Plan and Informed Consent Obtained History Surgery Operation Date: 02/28/19 09:20 Proposed Procedures p Colonoscopy with Urgent Decompression - Senia Woodward MD Height/Weight Height: 5 ft 1 in Weight: 45.4 kg Allergies Allergy/AdvReac Type Severity Reaction Status Date / Time No Known Allergies Allergy Verified 02/28/19 13:40 Medications Home Medications Medication Instructions Recorded Confirmed Last Taken albuterol sulfate [ProAir HFA] 2 puff INHALATION Q6H PRN 04/24/18 02/28/19 11/04/18 paroxetine HCl 30 mg PO QAM 04/24/18 02/28/19 02/28/19 Symbicort 1 puff INHALATION QAM 05/25/18 02/28/19 02/28/19 simethicone [Gas Relief] 80 mg PO DIRECTED PRN 10/13/18 02/28/19 Unknown cyclobenzaprine 10 mg PO TID PRN #90 tab 10/20/18 02/28/19 02/27/19 lorazepam 0.5 mg PO BID PRN 11/04/18 02/28/19 Unknown enoxaparin 50 mg SUBCUT Q12H 30 Days #30 ml 01/04/19 02/28/19 02/28/19 Spiriva Respimat 2 puff INHALATION QAM 02/28/19 02/28/19 02/28/19 allopurinol 300 mg PO DAILY 02/28/19 02/28/19 Unknown diphenoxylate-atropine 1 tab PO Q4H PRN 02/28/19 02/28/19 02/28/19 01:30 fentanyl 12 mcg TRANSDERMAL Q72H 02/28/19 02/28/19 02/25/19 loperamide [Imodium A-D] 2 mg PO Q4H PRN 02/28/19 02/28/19 02/28/19 05:30 oxycodone 0.25 mg PO Q4H PRN 02/28/19 02/28/19 02/28/19 05:00 Active Medications Generic Name Dose Route Start Last Admin Trade Name Freq PRN Reason Stop Dose Admin Enoxaparin Sodium 50 mg 02/28/19 21:00 02/28/19 20:06 Lovenox SQ 03/30/19 20:59 Not Given Q12H VERONICA Fentanyl 12 mcg 02/28/19 18:00 02/28/19 20:05 Duragesic TD 03/14/19 17:59 12 mcg Q72H VERONICA Administration Sodium Chloride 1,000 mls @ 100 mls/hr 02/28/19 17:17 02/28/19 18:46 Nss 1000ml IV 03/30/19 17:16 100 mls/hr .Q10H VERONICA Administration Morphine Sulfate 4 mg 02/28/19 17:17 02/28/19 20:06 Morphine Sulfate IV 03/14/19 17:16 4 mg Q4H PRN Administration Pain Past Medical History Medical History Colon cancer (Chronic) S/P right hemicolectomy on 03/23/2017 (by Dr. Cheng). -Final pathology showed high-grade neuroendocrine carcinoma extending into the pericolonic adipose tissue, negative margin, lymphovascular and perineu ral invasion noted, multiple tumor deposits identified throughout the mesentery, 3/12 lymph nodes positive for metastatic neuroendocrine carcinoma T3 N1c. 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 S/P neoadjuvant modified FOLFOX 6 chemotherapy x 5 -Oxaliplatin induced the liver toxicity, received 5-Fluorouracil leucovorin x 7. Last cycle received on 02/12/2018. S/P right hemicolectomy on 03/23/2017 (by Dr. Cheng). 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 KRAS and BRAF mutation-->negative. 04/2018: -recurrent high-grade neuroendocrine carcinoma involving the retroperitoneal lymph regan region causing right hydronephrosis, S/P percutaneous nephrostomy drainage. -IVC thrombus, pulmonary embolism. - Essential thrombocythemia diagnosed in 2005, JAK2 mutation positive platelet count was over 1 million at that time the diagnosis. She is on hydroxyurea for that." Pulmonary embolism (Chronic) Stenosis colon s/p colonic stent Stricture of colon Thrombocytosis (Chronic) Exercise / Class Metabolic Activity II 4-5 Yardwork/Stairs/Walk up hill Past Family History Family History Grandmother (Paternal) , of childbirth No problems noted. Grandfather (Paternal) , of lung cancer at age 7 No problems noted. Father , of protsate cancer No problems noted. Mother , of breas cancer with metastasis to lung and brain No problems noted. Brother Age: 63 Prostate cancer Brother Age: 57 Prostate cancer Sister Age: 50 No problems noted. Daughter Age: 27 No problems noted. Other No pertinent family history Past Surgical History Surgical History H/O rotator cuff surgery (Chronic) History of arthroscopy of left knee (Chronic) History of partial surgical removal of colon (Chronic) Nephrostomy status Right nephrostomy tube in place S/P removal of right ovary (Chronic) Past Anesthesia History No Hx of Anesthesia Complications and No Family Hx of Anesthesia Complications History of PONV No Hx of PONV and No Hx of Motion Sickness Social History Smoking Status: Former smoker tobacco type: cigarettes Smoking cigarettes per day: 1.5 ppd X 20 years Do You Dip or Chew Tobacco: No Smoking End Date: 1999 Hx Alcohol Use: No Alcohol type: beer alcohol intake frequency: a few times a week Hx Substance Use: No substance use type: opiates, painkillers, prescription drug and other Substance Use Type Other:: Morphine Last Used Substance: Unknown Physical Exam Vital Signs Last Vital Signs Temp 36.4 C L 02/28/19 12:14 Pulse 103 H 02/28/19 17:24 Resp 18 02/28/19 17:24 BP 116/70 02/28/19 17:24 Pulse Ox 97 02/28/19 16:56 Constitutional underweight ENMT Mouth: + dentures (upper plate) Thyromental Distance: > or= 3.5 Finger Breadths Mallampati Class: II NG Tube in place Neck normal visual inspection Respiratory normal respiratory effort Auscultation: lungs clear to auscultation bilaterally Cardiovascular Rate/Rhythm: regular rate and regular rhythm Psychiatric Orientation: alert Testing Laboratory Results 02/28/19 12:45 02/28/19 12:45 PT 11.3 Seconds (9.0-12.0) 02/28/19 12:45 INR 1.1 (0.9-1.1) 02/28/19 12:45 APTT 32.2 Seconds (21.0-31.0) H 02/28/19 12:45 Urine Color Dark Yellow 02/28/19 17:30 Urine Appearance Clear (Clear) 02/28/19 17:30 Urine pH 5.0 (4.5-7.5) 02/28/19 17:30 Ur Specific [place] > 1.045 (1.000-1.030) H 02/28/19 17:30 Urine Protein Trace (Negative) H 02/28/19 17:30 Urine Glucose (UA) Negative (Negative) 02/28/19 17:30 Urine Ketones Negative (Negative) 02/28/19 17:30 Urine Nitrite Negative (Negative) 02/28/19 17:30 Ur Leukocyte Esterase Trace (Negative) H 02/28/19 17:30 Urine WBC (Auto) 1-5 /hpf (0-5) 02/28/19 17:30 Urine RBC (Auto) 0-4 /hpf (0-4) 02/28/19 17:30 U Hyaline Cast (Auto) 1-5 /lpf (0-5) 02/28/19 17:30 U Epithel Cells (Auto) 10-20 /lpf (0-5) H 02/28/19 17:30 Urine Bacteria (Auto) Negative (Negative) 02/28/19 17:30 Electrocardiogram Date: 02/28/19 Findings: + T wave inversion and + ST @
[2019-02-28] MEDS ORDERED: MIDAZOLAM HCL 1 MG/ML 2ML VIAL ONE (22:13)
--- NOTE | 2019-02-28 23:00 | Operative Report ---
Post Operative Report Pre & Post Diagnosis Operation Date: 02/28/19 09:20 Pre-Op Diagnosis: Colon Obstruction Post-Op Diagnosis: Colon Obstruction I identified the patient and participated in the time-out.: Yes Procedure Operation Date: 02/28/19 09:20 Actual Procedures p Colonoscopy with Urgent Decompression, with Stent Placement(Not Applicable) - Senia Woodward MD Surgeon Senia Woodward MD Product Development Specialist None Estimated Blood Loss 0 Findings See Below (Colonic obstruction due to tumor in growth/over growth over the prior stent ) Specimens None Description of Procedure Flex sig I attest to the content of the Intraoperative Record and any orders documented therein. Any exceptions are noted below.
--- NOTE | 2019-02-28 23:18 | Anesthesiology Progress Note ---
Date of Service February 28, 2019 Anesthesia Post Procedure Vital Signs Vital Signs: Temp Pulse Pulse Resp BP BP Pulse Ox 02/28/19 17:24 103 H 18 116/70 02/28/19 16:56 97 H 28 H 113/70 97 02/28/19 15:47 96 H 25 H 115/72 98 02/28/19 14:45 101 H 22 108/68 98 02/28/19 14:14 95 H 24 110/68 98 02/28/19 13:10 101 H 22 119/71 99 02/28/19 12:28 96 02/28/19 12:14 36.4 C L 104 H 18 129/79 99 Pain Intensity Abdomen: Pain Intensity: 8 Transfer of Care Handoff Completed per policy Notes Mental Status: alert / awake / arousable Patient Amnestic to Procedure: Yes Nausea / Vomiting: adequately controlled Pain: adequately controlled Airway Patency, RR, SpO2: stable & adequate BP & HR: stable & adequate Hydration State: stable & adequate Anesthetic Complications: no major complications apparent
--- NOTE | 2019-02-28 23:56 | GI REPORT ---
Patient Name: Guadalupe Araujo Procedure Date: 02/28/2019 9:47 PM Date of : 1955 Admit Type: Inpatient Age: 64 Gender: Female Attending MD: Senia Woodward MD Procedure: Flex Sig Providers: Senia Woodward MD Referring MD: Medardo LOGAN MD Indications: Abnormal CT of the GI tract, For therapy of colonic obstruction Medicines: Propofol per Anesthesia Complications: No immediate complications. Estimated Blood Loss: Estimated blood loss: none. Procedure: Pre-Anesthesia Assessment: - Prior to the procedure, a History and Physical was performed, and patient medications, allergies and sensitivities were reviewed. The patient's tolerance of previous anesthesia was reviewed. - The risks and benefits of the procedure and the sedation options and risks were discussed with the patient. All questions were answered and informed consent was obtained. - Patient identification and proposed procedure were verified prior to the procedure by the physician and the nurse. The procedure was verified in the procedure room. - Pre-procedure physical examination revealed no contraindications to sedation. After I obtained informed consent, the scope was passed under direct vision. Throughout the procedure, the patient's blood pressure, pulse, and oxygen saturations were monitored continuously. The Endoscope was introduced through the anus and advanced to the rectosigmoid junction. After I obtained informed consent, the scope was passed under direct vision. Throughout the procedure, the patient's blood pressure, pulse, and oxygen saturations were monitored continuously.The flexible sigmoidoscopy was accomplished without difficulty. The patient tolerated the procedure well. The quality of the bowel preparation was fair. Findings: The perianal and digital rectal examinations were normal. A previously placed colonic stent was found in the recto-sigmoid colon. The stent has an unusual shap on county health officer film by fluroscopy likely due to the axis pointing anteriorly. The distal end of the stent was patent. Scope was advanced slightly inside the stent and there is complete occlusion of the lumen of the stent due to heavy tumor in growth. A 0.035 straight Acrobat wire was advanced and extended into the decending colon. An occlusion balloon catheter was advanced over the wire, the balloon was inflated to 20 mm and contrast was injected, the decending colon was significantly dilated. There is a long stricture extending from the proximal end of the stent to around 2/3 of the length of the stent. The catheter was removed and a 25 mm x 10 cm Lettuce[employer] colonic stent was advanced over the wire and deployed inside the prior stent under fluoroscopic guidance. The stent was in excellent position and had an appropriate L- shape inside the rectosigmoid colon. A gush of liquid stool started draining. I personally interpretted the fluroscopic images. - There was mild inflammation in the rectum. Impression: - Complete occlusion of the previously placed colonic stent due to heavy tumor ingrowth. A new 10 cm colonic stent was placed inside the occluded stent with stool drainage at the end of the procedure. Recommendation: - [facility]. - Avoid Opioids. - Keep NG to low intermittent suction. - Obtain KUB tomorrow, if the colon is decompressed and patient had adequate bowel movements then can removed NG tube and start on liquid diet. - Follow post colonic stent instructions and special diet to avoid stent occlusion and use Miralax BID for bowel regimen once discharged home. Senia Woodward MD 02/28/2019 11:56:05 PM Note Initiated On: 02/28/2019 9:47 PM Number of Addenda: 0 I attest to the content of the Intraoperative Record and orders documented therein, exceptions below {[id number]}
[2019-03-01] MEDS: CHECK FENTANYL PATCH PLACEMENT SCH ×4 (00:02→23:48)
[2019-03-01] MEDS: MoRPHine SULFATE 4 MG/ML 1 ML CARP\\VIAL IV PRN ×4 (02:47→20:45)
--- NOTE | 2019-03-01 05:05 | Fluoroscopy Report ---
FL pelvis 1-2V CLINICAL HISTORY: 64 years-old Female presenting with OBSTRUCTION. TECHNIQUE: 7 fluoroscopic image(s) recorded as part of an intraoperative procedure. COMPARISON: CT from 02/28/2019. FINDINGS/IMPRESSION: Redemonstration of the stent at the rectosigmoid junction. Excreted contrast noted in the urinary efrain dder. A guidewire was passed through the stent into the sigmoid colon with a endoscope in place in th e rectum. A catheter was subsequently advanced into the distal descending colon, which was opacified with contrast. Subsequently, a second stent was placed over a more extended length extending along th e entire sigmoid colon and into the upper rectum. Please see surgical report for further details. Dose area product (mGy.cm^2): 13.93. Fluoroscopy time: 3 minutes 8.9 seconds. Number or time of high level fluoroscopy (HLF), digital spot, or digital subtraction images: 0. ACT 112: Negative or not required by law. Electronically signed by: Hunter Ochoa M.D. 03/01/2019 5:04 AM
[2019-03-01] MEDS: SODIUM CHLORIDE 0.9% 1000ML 1,000 ML IV SCH ×2 (07:04→16:57)
[2019-03-01 08:00] LABS: Albumin Level 1.6 gm/dl (3.4-5.0); BUN Creatinine Ratio 45.7 (10-20); Calcium 7.6 mg/dl (8.5-10.1); Creatinine Clr Calc Pharmacy 40.6 ml/min; Est GFR (African American) 67.5; Est GFR (Non-African American) 58.2; Magnesium 2.3 mg/dl (1.8-2.4); Potassium 3.2 mmol/L (3.5-5.1)
[2019-03-01 08:03] LABS: Albumin Globulin Ratio 0.4 (0.9-2); Bilirubin,Total 0.6 mg/dl (0.2-1); Globulin 4.2 gm/dl (2.5-4.0); Total Protein 5.8 gm/dl (6.4-8.2)
[2019-03-01] MEDS: ENOXAPARIN INJ 60 MG/0.6 ML SYR SQ SCH ×2 (08:45→20:21)
[2019-03-01] MEDS: PARoxetine HCl 10 MG TAB PO SCH (08:45)
[2019-03-01] MEDS: allopurinoL 300 MG TAB PO SCH (08:46)
[2019-03-01] MEDS: TIOTROPIUM BROMIDE 5 PUFF/90 MCG INH INH SCH (08:48)
[2019-03-01] MEDS: BUDESONIDE/FORMOTEROL FUMARATE 160/4.5 60 PUFFS/INHALER INH SCH (08:48)
--- NOTE | 2019-03-01 08:48 | Surgery Progress Note ---
Date of Service March 01, 2019 Assessment & Plan (1) Bowel obstruction: Good results with interventions Can likely remove NGT and begin clears soon Not a surgical candidate (2) Obstruction, colon: Subjective Patient clinically improved with NGT and colonic decompression Appreciate Dr Qiu's intervention Patient feels better after good result with NGT Passing liquid BMs Review of Systems Constitutional: no fever and no chills Respiratory: no dyspnea and no dyspnea on exertion Cardiovascular: no chest pain Gastrointestinal: + change in bowel habits (diarrhea expected after stent) and + diarrhea/loose stools; no abdominal pain, no nausea and no vomiting Genitourinary: no dysuria Musculoskeletal: no back pain Neurologic: + generalized weakness; no localized weakness Psychiatric: no behavioral changes Endocrine: + change in body appearance (cachectic); no fatigue Physical Exam Constitutional: + thin and + cachectic Eyes: PERRL, conjunctivae normal, anicteric sclerae Neck: trachea midline Respiratory: normal respiratory effort, lungs clear to auscultation Cardiovascular: RRR, no murmur, no edema Gastrointestinal (Abdomen): Inspection/Auscultation: + abdomen distended (improved) and normal bowel sounds Percussion/Palpation: abdomen nontender, no guarding, abdomen not rigid and no hernia Musculoskeletal: Head/Neck/Chest: normocephalic and head atraumatic Skin: no rashes, warm and dry Results & Data Vital Signs (Past 12 Hours) Vital Signs Temp Pulse Pulse Pulse Resp BP BP 03/01/19 07:16 36.4 C L 105 H 14 113/68 03/01/19 02:50 36.3 C L 105 H 19 110/70 03/01/19 01:53 36.7 C 100 H 20 92/54 L 03/01/19 00:53 36.4 C L 110 H 20 110/70 03/01/19 00:20 36.4 C L 111 H 20 108/71 02/28/19 23:35 37.0 C 102 H 26 H 111/71 02/28/19 23:25 101 H 24 119/77 02/28/19 23:15 103 H 23 116/79 02/28/19 23:07 37.6 C H 110 H 16 122/76 Pulse Ox 03/01/19 07:16 94 03/01/19 02:50 100 03/01/19 01:53 98 03/01/19 00:53 91 03/01/19 00:20 96 02/28/19 23:35 96 02/28/19 23:25 97 02/28/19 23:15 97 02/28/19 23:07 100
--- NOTE | 2019-03-01 10:20 | XRay Report ---
XR KUB/Abdomen 1 view CLINICAL HISTORY: 64 years-old Female presenting with follow up of decompression. TECHNIQUE: Single supine view of the abdomen was obtained. COMPARISON: CT from 02/28/2019 and plain radiograph from 01/01/2019. FINDINGS: Right nephrostomy tube in place. Nasogastric tube terminates in the distal stomach. Overlapping stent s in the rectosigmoid region, one of which is new from prior. Oral contrast projects over the left mi d abdomen possibly within large bowel. Mild gaseous distention of central loops of bowel, possibly sm all bowel. Anastomotic suture line noted in the left mid abdomen. No gross pneumoperitoneum align for supine technique. Allowing for bowel gas and stool, no calcifications to suggest nephrolithiasis. Excreted contrast not ed in the urinary bladder. Degenerative changes of the spine. Lung bases clear. IMPRESSION: 1. Gaseous distention of central loops of what is suspected to represent small bowel. Some degree of obstruction or ileus is suspected. Follow-up advised. 2. Overlapping rectosigmoid stents, one of which is new from prior. 3. Appropriately positioned nasogastric tube. ACT 112: Negative or not required by law. Electronically signed by: Hunter Ochoa M.D. 03/01/2019 10:19 AM
--- NOTE | 2019-03-01 10:31 | Gastroenterology Progress Note ---
Date of Service March 01, 2019 Assessment & Plan (1) Obstruction, colon: 64 years old female patient with metastatic neuroendocrine tumor, Colonic obstruction due to rectosigmoid mass, s/p colonic stenting in the past, presenting with abdominal pain, distention, nausea and vomiting. CT scan showed high grade colonic obstruction at the prior colonic stent now status post repeat stent inside of stent with improvement. -Avoid Opioids. - Keep NG but given Xray today, can clamp it and if no change or concern for SBO/active symptoms then start liquid diet. - Obtain KUB tomorrow - Follow post colonic stent instructions and special diet to avoid stent occlusion and use Miralax BID for bowel regimen once discharged home. Subjective Patient dramatically feels better today, passing liquid stool. KUB reviewed Physical Exam Constitutional: WD/WN, vitals as above Cardiovascular: RRR, no murmur, no edema Gastrointestinal (Abdomen): normal bowel sounds, soft, nontender, no hepatosplenomegaly Results & Data Vital Signs (Past 12 Hours) Vital Signs Temp Pulse Pulse Pulse Resp BP BP 03/01/19 07:16 36.4 C L 105 H 14 113/68 03/01/19 02:50 36.3 C L 105 H 19 110/70 03/01/19 01:53 36.7 C 100 H 20 92/54 L 03/01/19 00:53 36.4 C L 110 H 20 110/70 03/01/19 00:20 36.4 C L 111 H 20 108/71 02/28/19 23:35 37.0 C 102 H 26 H 111/71 02/28/19 23:25 101 H 24 119/77 02/28/19 23:15 103 H 23 116/79 02/28/19 23:07 37.6 C H 110 H 16 122/76 Pulse Ox 03/01/19 07:16 94 03/01/19 02:50 100 03/01/19 01:53 98 03/01/19 00:53 91 03/01/19 00:20 96 02/28/19 23:35 96 02/28/19 23:25 97 02/28/19 23:15 97 02/28/19 23:07 100
--- NOTE | 2019-03-01 10:43 | Urology Consultation ---
Date of Consultation March 01, 2019 Assessment & Plan (1) Hydronephrosis, left: Moderate hydronephrosis in the setting of metastatic colon/neuroendocrine tumor and an acute colonic obstruction Creatinine appropriate Making decent urine now Right nephrostomy tube in placeatrophic kidney on the right At present, given the colonic decompression, I think it is best to observe, if she has acute renal failure we could reimage to rule out progressive obstruction If she remains asymptomatic and her creatinine remains appropriate, I favor observation I suspect some degree of this hydronephrosis was related to her acute abdominal pathology and not all related to her chronic pathology Will follow History of Present Illness Attending Physician: Oli Doyle MD History of Present Illness Unfortunate 64-year-old female with a complex history of colon cancer/neuroendocrine Metastatic disease Chronic right hydronephrosis managed with a right nephrostomy tube Admission yesterday secondary to colonic obstruction Subsequent colonic stent placement, NG tube placement Substantial improvement from a subjective standpoint Moderately full bladder, moderate hydronephrosis on the left at the time of imagingpre-colonic intervention Reports that she has been voiding adequately this morning No left CVA tenderness Allergies Allergy/AdvReac Type Severity Reaction Status Date / Time No Known Allergies Allergy Verified 02/28/19 13:40 Home Medications Home Medications Medication Instructions Recorded Confirmed Type albuterol sulfate [ProAir HFA] 2 puff INHALATION Q6H PRN 04/24/18 02/28/19 History paroxetine HCl 30 mg PO QAM 04/24/18 02/28/19 History Symbicort 1 puff INHALATION QAM 05/25/18 02/28/19 History simethicone [Gas Relief] 80 mg PO DIRECTED PRN 10/13/18 02/28/19 History cyclobenzaprine 10 mg PO TID PRN #90 tab 10/20/18 02/28/19 Rx lorazepam 0.5 mg PO BID PRN 11/04/18 02/28/19 History enoxaparin 50 mg SUBCUT Q12H 30 Days #30 ml 01/04/19 02/28/19 Rx Spiriva Respimat 2 puff INHALATION QAM 02/28/19 02/28/19 History allopurinol 300 mg PO DAILY 02/28/19 02/28/19 History diphenoxylate-atropine 1 tab PO Q4H PRN 02/28/19 02/28/19 History fentanyl 12 mcg TRANSDERMAL Q72H 02/28/19 02/28/19 History loperamide [Imodium A-D] 2 mg PO Q4H PRN 02/28/19 02/28/19 History oxycodone 0.25 mg PO Q4H PRN 02/28/19 02/28/19 History Patient History Medical History Colon cancer (Chronic) S/P right hemicolectomy on 03/23/2017 (by Dr. Cheng). 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 S/P neoadjuvant modified FOLFOX 6 chemotherapy x 5 -Oxaliplatin induced the liver toxicity, received 5-Fluorouracil leucovorin x 7. Last cycle received on 02/12/2018. S/P right hemicolectomy on 03/23/2017 (by Dr. Cheng). 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 KRAS and BRAF mutation-->negative. 04/2018: -recurrent high-grade neuroendocrine carcinoma involving the retroperitoneal lymph regan region causing right hydronephrosis, S/P percutaneous nephrostomy drainage. -IVC thrombus, pulmonary embolism. - Essential thrombocythemia diagnosed in 2005, JAK2 mutation positive platelet count was over 1 million at that time the diagnosis. She is on hydroxyurea for that." Pulmonary embolism (Chronic) Stenosis colon s/p colonic stent Stricture of colon Thrombocytosis (Chronic) Surgical History H/O rotator cuff surgery (Chronic) History of arthroscopy of left knee (Chronic) History of partial surgical removal of colon (Chronic) Nephrostomy status Right nephrostomy tube in place S/P removal of right ovary (Chronic) Family History Grandmother (Paternal) , of childbirth No problems noted. Grandfather (Paternal) , of lung cancer at age 7 No problems noted. Father , of protsate cancer No problems noted. Mother , of breas cancer with metastasis to lung and brain No problems noted. Brother Age: 63 Prostate cancer Brother Age: 57 Prostate cancer Sister Age: 50 No problems noted. Daughter Age: 27 No problems noted. 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: No Beliefs That Will Affect Care: None marital status: Current Living Situation: Spouse Other Information That Helps Us Care for You: No Feels Safe at Home: Yes Safety Concerns: Feels Safe At This Time Smoking Status: Former smoker Tobacco Type: cigarettes ; Cigarettes Per Day: 1.5 ppd X 20 years ; Do You Dip or Chew Tobacco: No ; Smoking End Date: 1999 ; Second Hand Exposure: No ; Tobacco Cessation Education Requested by Patient: No Hx Alcohol Use: No Hx Substance Use: No Physical Exam Constitutional: + thin, + cachectic, well groomed and comfortable Eyes: PERRL, conjunctivae normal, anicteric sclerae ENMT: Ears: no hearing impairment Respiratory: normal respiratory effort; no respiratory distress Cardiovascular: Rate/Rhythm: regular rate and regular rhythm Gastrointestinal (Abdomen): Moderately firm, not drastically distended No CVA tenderness on the right or the left Right nephrostomy tube draining clear urine from the right, no erythema or infectious signs around the tube Musculoskeletal: Head/Neck/Chest: + head abnormal to inspection and normocephalic Skin: no rashes, warm and dry normal turgor Genitourinary: no CVA tenderness Results & Data Vital Signs (Past 12 Hours) Vital Signs Temp Pulse Pulse Pulse Resp BP BP 03/01/19 07:16 36.4 C L 105 H 14 113/68 03/01/19 02:50 36.3 C L 105 H 19 110/70 03/01/19 01:53 36.7 C 100 H 20 92/54 L 03/01/19 00:53 36.4 C L 110 H 20 110/70 03/01/19 00:20 36.4 C L 111 H 20 108/71 02/28/19 23:35 37.0 C 102 H 26 H 111/71 02/28/19 23:25 101 H 24 119/77 02/28/19 23:15 103 H 23 116/79 02/28/19 23:07 37.6 C H 110 H 16 122/76 Pulse Ox 03/01/19 07:16 94 03/01/19 02:50 100 03/01/19 01:53 98 03/01/19 00:53 91 03/01/19 00:20 96 02/28/19 23:35 96 02/28/19 23:25 97 02/28/19 23:15 97 02/28/19 23:07 100 PG Care Time/CCT Total # of Minutes Spent Total Time Spent with Patient: Total time spent is greater than 50% in coordination of care (as documented) at patient's floor/unit and/or counseling patient:
[2019-03-01] MEDS ORDERED: DAPTOMYCIN CONSULT ACTIVE PRN (15:18)
[2019-03-01] MEDS ORDERED: DAPTOmycin 275 MG in SYRINGE 0 ML IV SCH (16:00)
[2019-03-01] MEDS: POTASSIUM CHLORIDE / WTR 10 MEQ/100 ML PLCT IV SCH ×2 (16:57→21:55)
--- NOTE | 2019-03-01 17:15 | Hospitalist Progress Note ---
Date of Service March 01, 2019 Assessment & Plan (1) Obstruction, colon: (1) Bowel obstruction: (2) Stricture of colon: (3) Neuroendocrine carcinoma: - s/p Colonoscopy 02/28/19, replacement of stent - KUB: 1. Gaseous distention of central loops of what is suspected to represent small bowel. Some degree of obstruction or ileus is suspected. Follow-up advised. 2. Overlapping rectosigmoid stents, one of which is new from prior. 3. Appropriately positioned nasogastric tube. - had nausea after trying clear liquids this AM keep NPO for now PRN antiemetics D5NSS, TPN - monitor closely Possible Bacteremia - Blood cultures: 1/2 gram positive cocci - afebrile, no leukocytosis - will cover with IV Dapto ff up culture (4) Hydronephrosis, left: -CT ABD/pelvis showing moderate hydronephrosis on the left; likely secondary to tumor burden -Has nephrostomy tube on the right that was placed for obstruction secondary to tumor burden -Urology consulted crea stable continue observation for now (5) IVC thrombosis: (6) Pulmonary embolism: -On therapeutic dose Lovenox, will continue (7) COPD (chronic obstructive pulmonary disease): -No signs of acute exacerbation -Continue home inhalers (8) DVT prophylaxis: -On therapeutic dose Lovenox case discussed with Subjective ff up for small bowel obstruction seen resting in bed, comfortable sitting up , in good spirits NG tube draining bilious fluids denies abdominal pain, nausea no fever/chills denies other symptoms Review of Systems Review of Systems: All systems reviewed & are unremarkable except as noted in HPI & below Physical Exam Physical Exam: General- oriented x 3, not in distress, speaks in sentences with no effort or accessory muscle use thin Head- atraumatic Eyes- PERRL, EOMI, anicteric ENT- oropharynx clear Neck- supple, no JVD, no adenopathy, no thyromegaly; carotids +2/2, no bruits appreciated Lungs- clear to auscultation bilaterally, no rales/wheezes Heart- normal rate, regular rhythm; no murmur, no gallop, no rub appreciated Abdomen- normal bowel sounds, nondistended, soft, nontender, no masses or hepatosplenomegaly Nephrostomy tube in place, right: yellow urine Extremities- no pretibial edema, no calf tenderness; peripheral pulses intact Neuro- alert, oriented x 3; CN 2-12 grossly intact; motor 5/5 bilaterally;sensation 100% on all extremities; no other gross focal neurologic deficits Skin- warm & dry Results & Data Vital Signs (Past 12 Hours) Vital Signs Temp Pulse Pulse Resp BP Pulse Ox 03/01/19 16:18 36.6 C 111 H 16 107/68 91 03/01/19 07:16 36.4 C L 105 H 14 113/68 94 Laboratory Results Laboratory Results - last 24 hr 02/28/19 02/28/19 03/01/19 17:30 19:15 07:23 Sodium 143 Potassium 3.2 L Chloride 107 Carbon Dioxide 26 Anion Gap 10.0 BUN 47 H Creatinine 1.03 Est Cr Clr Drug Dosing 40.6 Est GFR ( Amer) 67.5 Est GFR (Non-Af Amer) 58.2 BUN/Creatinine Ratio 45.7 H Glucose 73 POC Glucose Lactate 2.8 H* Calcium 7.6 L Phosphorus 5.0 H Magnesium 2.3 Total Bilirubin 0.6 AST 71 H ALT 20 Alkaline Phosphatase 363 H Total Protein 5.8 L Albumin 1.6 L Globulin 4.2 H Albumin/Globulin Ratio 0.4 L Urine Color Dark Yellow Urine Appearance Clear Urine pH 5.0 Ur Specific [place] > 1.045 H Urine Protein Trace H Urine Glucose (UA) Negative Urine Ketones Negative Urine Blood Negative Urine Nitrite Negative Urine Bilirubin Negative Urine Urobilinogen Negative Ur Leukocyte Esterase Trace H Urine WBC (Auto) 1-5 Urine RBC (Auto) 0-4 U Hyaline Cast (Auto) 1-5 U Epithel Cells (Auto) 10-20 H Urine Bacteria (Auto) Negative Urine Yeast Not Reportable 03/01/19 17:10 Sodium Potassium Chloride Carbon Dioxide Anion Gap BUN Creatinine Est Cr Clr Drug Dosing Est GFR ( Amer) Est GFR (Non-Af Amer) BUN/Creatinine Ratio Glucose POC Glucose 41 L* Lactate Calcium Phosphorus Magnesium Total Bilirubin AST ALT Alkaline Phosphatase Total Protein Albumin Globulin Albumin/Globulin Ratio Urine Color Urine Appearance Urine pH Ur Specific [place] Urine Protein Urine Glucose (UA) Urine Ketones Urine Blood Urine Nitrite Urine Bilirubin Urine Urobilinogen Ur Leukocyte Esterase Urine WBC (Auto) Urine RBC (Auto) U Hyaline Cast (Auto) U Epithel Cells (Auto) Urine Bacteria (Auto) Urine Yeast
[2019-03-01] MEDS ORDERED: DEXTROSE 50% 50 ML SYRINGE IV ONE ×2 (17:23→17:32)
[2019-03-01] MEDS ORDERED: CENTRAL PN IV SCH (20:00)
[2019-03-01] MEDS: ONDANSETRON INJ 2 MG/ML 2 ML VIAL IV PRN (20:30)
[2019-03-01] MEDS: D5NSS + 20MEQ KCL 20 MEQ/1,000 ML BAG IV SCH (20:52)
[2019-03-02] MEDS: MoRPHine SULFATE 4 MG/ML 1 ML CARP\\VIAL IV PRN ×4 (02:10→21:34)
[2019-03-02] MEDS: ONDANSETRON INJ 2 MG/ML 2 ML VIAL IV PRN ×2 (02:33→19:26)
[2019-03-02 07:09] LABS: Creatinine Clr Calc Pharmacy 30.1 ml/min; Est GFR (Non-African American) 40.5
[2019-03-02] MEDS: ENOXAPARIN INJ 60 MG/0.6 ML SYR SQ SCH (08:16)
[2019-03-02] MEDS: HYDROmorphone INJ 0.5 MG/0.5 ML SYR IV PRN ×3 (08:17→19:26)
[2019-03-02] MEDS: CHECK FENTANYL PATCH PLACEMENT SCH ×3 (08:17→23:38)
[2019-03-02] MEDS: STOP TPN ORDER SCH (08:18)
[2019-03-02] MEDS: BUDESONIDE/FORMOTEROL FUMARATE 160/4.5 60 PUFFS/INHALER INH SCH (08:22)
[2019-03-02] MEDS: TIOTROPIUM BROMIDE 5 PUFF/90 MCG INH INH SCH (08:22)
[2019-03-02] MEDS: PARoxetine HCl 10 MG TAB PO SCH (08:22)
[2019-03-02] MEDS: allopurinoL 300 MG TAB PO SCH (09:10)
[2019-03-02] MEDS ORDERED: ENOXAPARIN INJ 60 MG/0.6 ML SYR SQ SCH (09:15)
[2019-03-02] MEDS: D5NSS + 20MEQ KCL 20 MEQ/1,000 ML BAG IV SCH ×2 (10:11→23:38)
--- NOTE | 2019-03-02 10:35 | Urology Progress Note ---
Date of Service March 02, 2019 Assessment & Plan (1) Hydronephrosis, left: Moderate left hydronephrosis, observe for now Other acute issues are more pressing than the hydro- Elevated creatinine today is likely more fluid related then obstructive She is due for a right nephrostomy change in [place] on the , presuming she is discharged she will keep that appointment We will continue to observe for now Subjective Obstruction right nephrostomy tube overnightcleared with a saline flush, good urine output since that time Also has been voiding through her urethra Denies any dysuria or hematuria Continues to struggle with bowel issues, had some diarrhea overnight NG tube output persists Creatinine elevated this morning, acute dehydration and fluid shifting is likely the culprit Review of Systems Constitutional: no fever and no chills Gastrointestinal: + abdominal pain and + problem reported Genitourinary: no dysuria, no urinary frequency and no urinary hesitancy Physical Exam Physical Exam: NG tube in place No apparent distress Afebrile Tachycardic, borderline hypotensive Abdomen somewhat firm, non-acute Nephrostomy draining clear urine Results & Data Vital Signs (Past 12 Hours) Vital Signs Temp Pulse Pulse Resp BP BP Pulse Ox 03/02/19 07:22 36.9 C 108 H 14 96/57 L 97 03/01/19 23:10 36.6 C 104 H 20 98/60 L 95 PG Care Time/CCT Total # of Minutes Spent Total Time Spent with Patient: Total time spent is greater than 50% in coordination of care (as documented) at patient's floor/unit and/or counseling patient:
[2019-03-02 11:08] LABS: BUN Creatinine Ratio 44.9 (10-20); Calcium 7.7 mg/dl (8.5-10.1); Creatinine Clr Calc Pharmacy 28.6 ml/min; Est GFR (African American) 44.3; Est GFR (Non-African American) 38.2; Potassium 3.6 mmol/L (3.5-5.1)
--- NOTE | 2019-03-02 11:17 | Hospitalist Progress Note ---
Date of Service March 02, 2019 Assessment & Plan (1) Obstruction, colon: (1) Bowel obstruction: (2) Stricture of colon: (3) Neuroendocrine carcinoma: - s/p Colonoscopy 02/28/19, replacement of stent - KUB: 1. Gaseous distention of central loops of what is suspected to represent small bowel. Some degree of obstruction or ileus is suspected. Follow-up advised. 2. Overlapping rectosigmoid stents, one of which is new from prior. 3. Appropriately positioned nasogastric tube. -Still having some nausea keep NPO for now PRN antiemetics D5NSS, TPN - monitor closely -Repeat KUB ordered: Showing persistent small bowel obstruction Discussed with Dr. Polanco, recommend to repeat CT without contrast today Possible Bacteremia - Blood cultures: 1/2 gram positive cocci - afebrile, no leukocytosis - will cover with IV Dapto ff up culture (4) Hydronephrosis, left: -CT ABD/pelvis showing moderate hydronephrosis on the left; likely secondary to tumor burden -Has nephrostomy tube on the right that was placed for obstruction secondary to tumor burden -Urology consulted crea to 1.4 IV fluids for possible component of prerenal etiology continue observation for now (5) IVC thrombosis: (6) Pulmonary embolism: -On therapeutic dose Lovenox, will continue (7) COPD (chronic obstructive pulmonary disease): -No signs of acute exacerbation -Continue home inhalers (8) DVT prophylaxis: -On therapeutic dose Lovenox case discussed in detail at length with patient and her at bedside They are understanding, agreeable, comfortable with plan of care All questions answered Subjective Follow-up small bowel obstruction, neuroendocrine carcinoma with metastasis Was having lower abdominal and back pain morning, improved with Dilaudid Received IV Zofran early in the morning, nausea is well controlled is morning Still NG tube with suction, tolerating ice chips so far No shortness of breath, chest pain, palpitations, dizziness Review of Systems Review of Systems: All systems reviewed & are unremarkable except as noted in HPI & below Physical Exam Physical Exam: General- oriented x 3, not in distress, speaks in sentences with no effort or accessory muscle use Eyes- anicteric Nose-NG tube in place with bilious output Neck- no JVD Lungs- clear breath sounds bilaterally, no crackles, no wheezing bilaterally Heart- normal rate, regular rhythm; no murmurs Abdomen-hypoactive bowel sounds, nondistended, soft, nontender Extremities- no pretibial edema, no calf tenderness Neuro- alert, oriented x 3; no gross focal neurologic deficits Skin- warm & dry Results & Data Vital Signs (Past 12 Hours) Vital Signs Temp Pulse Resp BP Pulse Ox 03/02/19 07:22 36.9 C 108 H 14 96/57 L 97 Laboratory Results Laboratory Results - last 24 hr 03/01/19 03/01/19 03/01/19 17:10 17:53 23:52 Sodium Potassium Chloride Carbon Dioxide Anion Gap BUN Creatinine Est Cr Clr Drug Dosing Est GFR ( Amer) Est GFR (Non-Af Amer) BUN/Creatinine Ratio Glucose POC Glucose 41 L* 112 H 213 H Calcium Iron 03/02/19 03/02/19 03/02/19 06:04 06:18 10:36 Sodium 147 H Potassium 3.6 Chloride 114 H Carbon Dioxide 27 Anion Gap 6.0 BUN 66 H Creatinine 1.39 H D 1.46 H Est Cr Clr Drug Dosing 30.1 28.6 Est GFR ( Amer) 47.0 44.3 Est GFR (Non-Af Amer) 40.5 38.2 BUN/Creatinine Ratio 44.9 H Glucose 176 H POC Glucose 199 H Calcium 7.7 L Iron 25 L 03/02/19 12:04 Sodium Potassium Chloride Carbon Dioxide Anion Gap BUN Creatinine Est Cr Clr Drug Dosing Est GFR ( Amer) Est GFR (Non-Af Amer) BUN/Creatinine Ratio Glucose POC Glucose 176 H Calcium Iron
--- NOTE | 2019-03-02 11:47 | Gastroenterology Progress Note ---
Date of Service March 02, 2019 Assessment & Plan (1) Obstruction, colon: 64 years old female patient with metastatic neuroendocrine tumor, Colonic obstruction due to rectosigmoid mass, s/p colonic stenting in the past, presenting with abdominal pain, distention, nausea and vomiting. CT scan showed high grade colonic obstruction at the prior colonic stent now status post repeat stent inside of stent with improvement. -Avoid Opioids. - Keep NG but given Xray today, but can clamp it and if no change or concern for SBO/active symptoms then start liquid diet. Slowly - Obtain KUB today - Follow post colonic stent instructions and special diet to avoid stent occlusion and use Miralax BID for bowel regimen once discharged home. Subjective Patient had NG tube clamped yesterday, drank a significant amount of liquids became nauseated, NG tube put back on to low intermittent suction. Still having loose stools Physical Exam Physical Exam: Cachectic Heart rate regular Lung clear Abdomen mildly protuberant, soft nontender normal active sounds Thin extremities Jovial No neurologic deficits Results & Data Vital Signs (Past 12 Hours) Vital Signs Temp Pulse Resp BP Pulse Ox 03/02/19 07:22 36.9 C 108 H 14 96/57 L 97
[2019-03-02] MEDS: fentaNYL 25 MCG/HR TDSY TD SCH (12:00)
--- NOTE | 2019-03-02 12:44 | Surgery Progress Note ---
Date of Service March 02, 2019 Assessment & Plan (1) Obstruction, colon: ngt replace remove as soon as tolerated advance diet as tolerated Present on Admission?: Yes (2) Neuroendocrine carcinoma metastatic to intra-abdominal lymph node: not a surgical candidate will sign off Present on Admission?: Yes Subjective events of yesterday noted ngt in place passing liquid stool Review of Systems Constitutional: no fever and no chills Respiratory: no dyspnea Cardiovascular: no chest pain Gastrointestinal: + nausea and + diarrhea/loose stools; no abdominal pain and no vomiting Genitourinary: no dysuria Musculoskeletal: no back pain Integumentary: no rash Physical Exam Constitutional: + cachectic Neck: trachea midline Respiratory: normal respiratory effort, lungs clear to auscultation Cardiovascular: RRR, no murmur, no edema Gastrointestinal (Abdomen): Inspection/Auscultation: + abdomen distended; + abnormal bowel sounds Percussion/Palpation: + abdomen tender Musculoskeletal: Head/Neck/Chest: normocephalic and head atraumatic Skin: no rashes, warm and dry Results & Data Vital Signs (Past 12 Hours) Vital Signs Temp Pulse Resp BP Pulse Ox 03/02/19 07:22 36.9 C 108 H 14 96/57 L 97
--- NOTE | 2019-03-02 13:42 | XRay Report ---
KUB CLINICAL HISTORY: follow up of colonic obstruction COMPARISON STUDY: CT of the abdomen and pelvis February 28, 2019. KUB March 01, 2019. FINDINGS: Tip of nasogastric tube is within the distal body of stomach. Rectosigmoid stent is unchang ed in position. Contrast within the bladder is from recent contrast-enhanced CT. Surgical staple line s are noted. A loop of small bowel within the left mid abdomen measures 4.6 cm in caliber. Of note, f luid-filled small bowel loops may be occult by radiography. IMPRESSION: Findings suggestive of a persistent small bowel obstruction. ACT 112: Negative or not required by law. Electronically signed by: Yuri Ojeda M.D. 03/02/2019 1:41 PM
--- NOTE | 2019-03-02 16:22 | CT Scan Report ---
CT OF THE ABDOMEN AND PELVIS WITHOUT CONTRAST CLINICAL HISTORY: Follow up bowel obstruction. Metastatic colon cancer. COMPARISON STUDY: CT of the abdomen and pelvis February 28, 2019. KUB performed earlier today. TECHNIQUE: Axial images of the abdomen and pelvis were obtained without IV contrast. Images were revi ewed in the axial, sagittal, and coronal planes. Automated exposure control was utilized for the ney dy. A dose lowering technique was utilized adhering to the principles of ALARA. FINDINGS: Imaged portions of the lower chest demonstrate multiple enlarged posterior mediastinal lymp h nodes. Multiple lung metastases are again noted. Left lower lobe airspace opacity has developed sin ce prior CT. Tip of nasogastric tube is within the distal body of the stomach. A right nephrostomy is in place. Right renal atrophy is again noted. Mild left hydronephrosis is unchanged. Innumerable guanako er metastases are similar to CT of February 28, 2019. [id number] amount of ascites is unchange d. Patient is status post right hemicolectomy. Interval placement of an additional stent within the r ectosigmoid is noted. Colonic dilatation has resolved. Small bowel dilatation has improved. Small bow el is now mildly dilated, measuring up to 3.6 cm in caliber. Small bowel is fluid-filled as is the re maining portions of the colon. Perirectal infiltration is unchanged. An enlarged right iliac node, me asuring 3.3 cm is again noted. Numerous additional retroperitoneal pathologic lymph nodes are present . Evidence for peritoneal carcinomatosis is better depicted on prior contrast enhanced exam. IMPRESSION: 1. Interval placement of a more proximal rectosigmoid stent and nasogastric tube with improvement in small bowel dilatation and resolution of colonic dilatation since prior CT of February 28, 2019. Pers istent mild small bowel dilatation. 2. Otherwise, no significant change since CT of February 28, 2019 with extensive metastatic disease, as described above. 3. Bibasilar opacities, left greater than right, which favors pneumonia/aspiration. ACT 112: Negative or not required by law. Electronically signed by: Yuri Ojeda M.D. 03/02/2019 4:20 PM
[2019-03-03] MEDS: HYDROmorphone INJ 0.5 MG/0.5 ML SYR IV PRN ×5 (00:36→23:55)
[2019-03-03] MEDS: MoRPHine SULFATE 4 MG/ML 1 ML CARP\\VIAL IV PRN ×2 (03:50→13:13)
[2019-03-03 06:57] LABS: Creatinine Clr Calc Pharmacy 31.9 ml/min; Est GFR (African American) 50.4; Est GFR (Non-African American) 43.5
[2019-03-03] MEDS: ONDANSETRON INJ 2 MG/ML 2 ML VIAL IV PRN (07:54)
[2019-03-03] MEDS: CHECK FENTANYL PATCH PLACEMENT SCH ×3 (07:54→23:56)
[2019-03-03] MEDS ORDERED: CLINDAMYCIN CONSULT ACTIVE PRN (08:28)
[2019-03-03] MEDS ORDERED: SODIUM CHLORIDE 0.9% 500 ML IV SCH (08:30)
[2019-03-03] MEDS: STOP TPN ORDER SCH (08:37)
[2019-03-03] MEDS: BUDESONIDE/FORMOTEROL FUMARATE 160/4.5 60 PUFFS/INHALER INH SCH (08:38)
[2019-03-03] MEDS: TIOTROPIUM BROMIDE 5 PUFF/90 MCG INH INH SCH (08:38)
[2019-03-03] MEDS: HEPARIN 100 UNIT/ML 5ML FLUSH FLUSH PRN (08:59)
[2019-03-03] MEDS ORDERED: ENOXAPARIN INJ 60 MG/0.6 ML SYR SQ SCH (09:00)
[2019-03-03] MEDS: cefTRIAXone SODIUM 2,000 MG in DEXTROSE 5% 50 ML IV SCH (09:18)
[2019-03-03] MEDS: ENOXAPARIN INJ 60 MG/0.6 ML SYR SQ SCH ×2 (09:18→20:49)
[2019-03-03] MEDS: allopurinoL 300 MG TAB PO SCH (09:28)
[2019-03-03] MEDS: PARoxetine HCl 10 MG TAB PO SCH (09:28)
[2019-03-03] MEDS ORDERED: CLINDAMYCIN 600 MG in DEXTROSE 5% 50 ML IV SCH (10:00)
[2019-03-03 10:09] LABS: Calcium 7.2 mg/dl (8.5-10.1); Est GFR (African American) 60.3; Magnesium 2.7 mg/dl (1.8-2.4)
--- NOTE | 2019-03-03 10:11 | Gastroenterology Progress Note ---
Date of Service March 03, 2019 Assessment & Plan (1) Obstruction, colon: Pt is a 64 y/o female w metastatic neuroendocrine tumor, bowel obstructions due to tumor burden, s/p colonic stent replacement on 02/28. She is having persistent SBO symptoms, didn't tolerate NGT clamping. CT yesterday showed upstream dilation above level of stent - KUB today - NPO, keep NGT on LIS - Avoid narcotics - Consider repeating CT scan w contrast w contrast tomorrow - Recommend Palliative Care evaluation Supervising Physician Co-Signing Physician Notes Attending attestation I have seen, examined this patient, and agree with the findings and above by our mid-level provider DEJUAN Franco, with the following additions -Reviewed imaging carefully closely, it appears that the stent is in good position and is been successful in alleviating the colonic and most distal dilatation, however she still has some dilated loops of bowel more upstream and given her presence of extensive carcinomatosis would be concerned that she has adhesive/metastatic disease in the more mid abdomen area that is not amenable to any procedural modalities. -She is TPN dependent, and I think the goal at the most would be that we could allow her to tolerate liquids, I did discuss the possibility that she could require and/or have the consideration of a venting PEG. May be a bit too early to make that decision, however she would like to get home for the holidays. Options would include foraging for tomorrow with a venting PEG, versus continuation of getting time and to see if resolves on its own. -She certainly is a high anesthesia risk, will reevaluate tomorrow Dr. Miguel Landry will be rounding who placed the stent. And we will see what x-ray today and tomorrow looks like as well as her symptoms after having had her NG tube clamped. Subjective Pt feels uncomfortable due to abd distension. Passing small amt of flatus. Denies any N/V, NGT on LIS. Output was >4L yesterday though she is drinking PO. She hasn't passed any stools today, last BM yesterday, small diarrhea like per her report. Review of Systems Review of Systems: All systems reviewed & are unremarkable except as noted in HPI & below Physical Exam Constitutional: + ill appearing, + thin, well groomed and cooperative Eyes: PERRL, conjunctivae normal, anicteric sclerae ENMT: external ear and nose normal, oropharynx normal NGT in place, LIS Respiratory: normal respiratory effort, lungs clear to auscultation Cardiovascular: RRR, no murmur, no edema Gastrointestinal (Abdomen): Inspection/Auscultation: + abdomen distended Percussion/Palpation: abdomen nontender Skin: no rashes, warm and dry no jaundice Neurologic: Motor/Sensory: no asterixis Psychiatric: A+Ox3, euthymic affect Lymphatic: + lymphedema (non pitting, generalized edema on bilateral LE ) Results & Data Vital Signs (Past 12 Hours) Vital Signs Temp Pulse Pulse Resp BP BP Pulse Ox 03/03/19 07:50 90/58 L 03/03/19 07:44 37.3 C 120 H 18 83/54 L 03/02/19 23:00 36.8 C 110 H 20 102/70 100
--- NOTE | 2019-03-03 10:31 | Urology Progress Note ---
Date of Service March 03, 2019 Assessment & Plan (1) Hydronephrosis, left: 64yo F with metastatic colon ca/ neuroendocrine with moderate left hydronephrosis, right nephrostomy tube Cr improving this AM, no acute surgical intervention required at this time. Continue care for more pressure GI issues. She is due for a right nephrostomy change in [place] on the acute issues with allow. Thank you for allowing us to participate in the acute care of Mr. Araujo. Please reconsult us with additional questions, concerns or changes in patient status. Subjective Pt sitting up in bed, NGT intact, conversing with family member. Denies any new issues. Still with significant GI output. Cr improved this AM. Still with tachycardia, soft BP. Review of Systems Review of Systems: All systems reviewed & are unremarkable except as noted in HPI & below Physical Exam Constitutional: + frail appearing; no acute distress and not ill appearing Eyes: no nystagmus ENMT: Ears: no hearing impairment Neck: trachea midline Respiratory: no respiratory distress and no cough Cardiovascular: Vessels: no JVD Chest (Breasts): Chest: normal inspection of chest Gastrointestinal (Abdomen): Inspection/Auscultation: abdomen not distended and no abdominal edema Percussion/Palpation: abdomen nontender Musculoskeletal: Head/Neck/Chest: normocephalic and head atraumatic Skin: no rashes, warm and dry right nephrostomy intact Neurologic: awake; not confused and not obtunded Psychiatric: Orientation: alert and oriented x 3 Eye Contact: good eye contact Affect: no depressed affect Lymphatic: no lymphadenopathy and no lymphedema Results & Data Vital Signs (Past 12 Hours) Vital Signs Temp Pulse Pulse Resp BP BP Pulse Ox 03/03/19 07:50 90/58 L 03/03/19 07:44 37.3 C 120 H 18 83/54 L 03/02/19 23:00 36.8 C 110 H 20 102/70 100 PG Care Time/CCT Total # of Minutes Spent Total Time Spent with Patient: Total time spent is greater than 50% in coordinat ion of care (as documented) at patient's floor/unit and/or counseling patient:
--- NOTE | 2019-03-03 10:55 | Infectious Disease Consult ---
Date of Consultation March 03, 2019 Assessment & Plan (1) Gram positive sepsis: repeat blood cultures x 2 today. will need echo to r/o veg. suspect GI translocation, no evidence clinically of port infection. If repeat blood cultures and echo negative, would give 14 days IV rocephin from first negative culture. will stop clinda. History of Present Illness Attending Physician: Oli Doyle MD pt admitted with vomitting and weakness, has known neuroendocrine tumor, ct with obstrution, underwent colonoscopy and stent on 02/28, tolerated well. no f/c at home, afebrile since admission. she is on chronic tpn via right chest wall port, present for years. no pain, redness at port, functioning well. blood cultures in ER, [facility] set growing S. intermedius, repeat cultures done this am. She is on clinda and ctx, tolerating well. wbc normal. creat 1.3, UA and urine culture negative. ngt in place, bilious drainage. no abd pain. no gu symptoms, no cp, sob, cough. Allergies Allergy/AdvReac Type Severity Reaction Status Date / Time No Known Allergies Allergy Verified 02/28/19 13:40 Home Medications Home Medications Medication Instructions Recorded Confirmed Type albuterol sulfate [ProAir HFA] 2 puff INHALATION Q6H PRN 04/24/18 02/28/19 History paroxetine HCl 30 mg PO QAM 04/24/18 02/28/19 History Symbicort 1 puff INHALATION QAM 05/25/18 02/28/19 History simethicone [Gas Relief] 80 mg PO DIRECTED PRN 10/13/18 02/28/19 History cyclobenzaprine 10 mg PO TID PRN #90 tab 10/20/18 02/28/19 Rx lorazepam 0.5 mg PO BID PRN 11/04/18 02/28/19 History enoxaparin 50 mg SUBCUT Q12H 30 Days #30 ml 01/04/19 02/28/19 Rx Spiriva Respimat 2 puff INHALATION QAM 02/28/19 02/28/19 History allopurinol 300 mg PO DAILY 02/28/19 02/28/19 History diphenoxylate-atropine 1 tab PO Q4H PRN 02/28/19 02/28/19 History fentanyl 12 mcg TRANSDERMAL Q72H 02/28/19 02/28/19 History loperamide [Imodium A-D] 2 mg PO Q4H PRN 02/28/19 02/28/19 History oxycodone 0.25 mg PO Q4H PRN 02/28/19 02/28/19 History Patient History Medical History Colon cancer (Chronic) S/P right hemicolectomy on 03/23/2017 (by Dr. Cheng). 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 S/P neoadjuvant modified FOLFOX 6 chemotherapy x 5 -Oxaliplatin induced the liver toxicity, received 5-Fluorouracil leucovorin x 7. Last cycle received on 02/12/2018. S/P right hemicolectomy on 03/23/2017 (by Dr. Cheng). 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 KRAS and BRAF mutation-->negative. 04/2018: -recurrent high-grade neuroendocrine carcinoma involving the retroperitoneal lymph regan region causing right hydronephrosis, S/P percutaneous nephrostomy drainage. -IVC thrombus, pulmonary embolism. - Essential thrombocythemia diagnosed in 2005, JAK2 mutation positive platelet count was over 1 million at that time the diagnosis. She is on hydroxyurea for that." Pulmonary embolism (Chronic) Stenosis colon s/p colonic stent Stricture of colon Thrombocytosis (Chronic) Surgical History H/O rotator cuff surgery (Chronic) History of arthroscopy of left knee (Chronic) History of partial surgical removal of colon (Chronic) Nephrostomy status Right nephrostomy tube in place S/P removal of right ovary (Chronic) Family History Grandmother (Paternal) , of childbirth No problems noted. Grandfather (Paternal) , of lung cancer at age 7 No problems noted. Father , of protsate cancer No problems noted. Mother , of breas cancer with metastasis to lung and brain No problems noted. Brother Age: 63 Prostate cancer Brother Age: 57 Prostate cancer Sister Age: 50 No problems noted. Daughter Age: 27 No problems noted. 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: No Beliefs That Will Affect Care: None marital status: Current Living Situation: Spouse Other Information That Helps Us Care for You: No Feels Safe at Home: Yes Safety Concerns: Feels Safe At This Time Smoking Status: Former smoker Tobacco Type: cigarettes ; Cigarettes Per Day: 1.5 ppd X 20 years ; Do You Dip or Chew Tobacco: No ; Smoking End Date: 1999 ; Second Hand Exposure: No ; Tobacco Cessation Education Requested by Patient: No Hx Alcohol Use: No Hx Substance Use: No Review of Systems Review of Systems: All systems reviewed & are unremarkable except as noted in HPI & below Physical Exam Constitutional: WD/WN, vitals as above Eyes: PERRL, conjunctivae normal, anicteric sclerae ENMT: external ear and nose normal, oropharynx normal Neck: normal visual inspection Respiratory: normal respiratory effort, lungs clear to auscultation Cardiovascular: RRR, no murmur, no edema Gastrointestinal (Abdomen): normal bowel sounds, soft, nontender, no hepatosplenomegaly Musculoskeletal: no cyanosis or clubbing, extremities motor strength 5/5 Skin: no rashes, warm and dry port dressing c/d/i, no warmth, no eryhtema non tender Psychiatric: A+Ox3, euthymic affect Results & Data Vital Signs (Past 12 Hours) Vital Signs Temp Pulse Pulse Resp BP BP Pulse Ox 03/03/19 07:50 90/58 L 03/03/19 07:44 37.3 C 120 H 18 83/54 L 03/02/19 23:00 36.8 C 110 H 20 102/70 100 Laboratory Results Microbiology 02/28/19 12:45 Blood Aerobic Blood Culture - Preliminary No growth in Aerobic bottle after 48 hours. 02/28/19 12:45 Blood Anaerobic Blood Culture - Preliminary No growth in Anaerobic bottle after 48 hours. 02/28/19 13:41 Blood Aerobic Blood Culture - Preliminary No growth in Aerobic bottle after 48 hours. 02/28/19 13:41 Blood Anaerobic Blood Culture - Preliminary Streptococcus intermedius 02/28/19 17:30 Urine,Clean Catch Urine Culture - Final Three types of organisms present, all moderate counts. Repeat collection recommended. No further identifications or sensitivities to follow. PG Care Time/CCT Total # of Minutes Spent Total Time Spent with Patient: Total time spent is greater than 50% in coordination of care (as documented) at patient's floor/unit and/or counseling patient:
[2019-03-03] MEDS: D5NSS + 20MEQ KCL 20 MEQ/1,000 ML BAG IV SCH (11:10)
[2019-03-03] MEDS ORDERED: DEXTROSE 10% 1,000 ML IV SCH (11:30)
--- NOTE | 2019-03-03 11:34 | Pharmacy Report ---
Pharmacy PN Initial Consult - Date of Service March 03, 2019 - Scope Pharmacy has been consulted to manage parenteral nutrition orders and order appropriate labs. As part of the Nutrition Support Team guidelines, pharmacy will work in conjunction with dietary when determining the patients caloric needs. - Subjective The patient is a 64 year old F admitted on 02/28/19 14:55 for SBO. Patient is to receive parenteral nutrition for chronic TPN in setting of kidney d ysfunction. - Objective Height: 5 ft 1 in Weight: 45.4 kg Intake & Output (Last 24Hrs): Intake & Output 03/01/19 03/02/19 03/03/19 03/04/19 06:59 06:59 06:59 06:59 Intake Total 2100 / 2100 1905.416 / 7373.356 8876.00 / 1370.00 1489 / 1489 Output Total 475 / 475 5075 / 5075 4675 / 4675 Balance 1625 / 1625 -3169.584 / -3169.584 -3305.00 / -3305.00 1489 / 1489 Weight 45.4 kg 45.4 kg Laboratory Data (Last 24 Hrs):: 03/03/19 03/03/19 06:17 09:03 Sodium 155 H D Potassium 4.0 Chloride 126 H Carbon Dioxide 27 BUN 63 H Creatinine 1.31 H 1.13 Glucose 120 H Calcium 7.2 L Phosphorus 3.0 Magnesium 2.7 H Nutrition Assessment:: Please refer to the Notes section of the EMR for the most recent electroplating sales representative note. - Assessment Ms Araujo is a 64 y/o F on chronic home TPN. Spoke with Jamar at [facility] to confirm formula as well as lipid amounts on Sunday and . - Plan For day 1 of PN administration, the following will be ordered: Macronutrients Amino acids 75 grams/day Dextrose 200 grams/day Lipids 50 grams/day (receives on Mondays and ) Sterile Water 577 mL (adjusted based upon presence of Lipids or not) Micronutrients Combined electrolytes -- mL - contains 35 mEq Na, 20 meq K, 4.5 mEq Ca, 5 mEq Mg, 35 mEq Cl, 29.5 mEq acetate per 20 mL Sodium phosphate 12 MMol Sodium chloride 81 mEq Sodium acetate 80 mEq Potassium phosphate 12 mMol Potassium chloride 90 mEq Potassium acetate -- mEq Magnesium sulfate -- mEq Calcium gluconate 10 mEq Multivitamins 10 mL Trace Elements 1 mL Additional additives: pepcid 20 mg, thiamine 100 mg, folic acid 1 mg, Total volume 1720 mL to be infused over 12 hrs will provide 1480 kcal/day Labs to be ordered per PN order protocol Pharmacy will follow and adjust parenteral nutrition orders on a daily basis. Thank you.
[2019-03-03] MEDS ORDERED: TPN/PPN CONSULT PHARMACY PRN (11:36)
--- NOTE | 2019-03-03 12:09 | XRay Report ---
XR KUB/Abdomen 1 view CLINICAL HISTORY: 64 years-old Female presenting with re-eval SBO. TECHNIQUE: Single supine view of the abdomen was obtained. COMPARISON: CT and plain radiograph from 03/02/2019. FINDINGS: [address]. Redemonstration of the right nephrostomy tube and nasogas tric tube. Nonobstructive bowel gas pattern. Anastomotic suture lines noted in the left mid abdomen. No gross pneumoperitoneum align for the supine technique. Allowing for bowel gas and stool, no calcifications to suggest nephrolithiasis. Degenerative changes of the spine. IMPRESSION: 1. No radiographic evidence of bowel obstruction on the current exam. ACT 112: Negative or not required by law. Electronically signed by: Hunter Ochoa M.D. 03/03/2019 12:07 PM
[2019-03-03] MEDS ORDERED: FUROSEMIDE 20 MG in SYRINGE 0 ML IV ONE (13:00)
--- NOTE | 2019-03-03 15:49 | Palliative Care Consultation ---
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 Last immunotherapy was under the care of Dr. Fermín Chung--treatment not working and disease is progressing. Patient has undergone colonic stents. In the ED, CT ABD/pelvis shows high-grade obstruction at or just above colonic stent. She underwent repeat colonic stenting on 02/28, but unfortunately no improvement of the bowel obstruction. NGT is placed and is hooked to LIS. Patient has had bowel obstructions in the past as well. GI is consulted for possible palliative venting g-tube placement. Patient is TPN- dependent at home, but is still fully functional at home where she lives with her . Palliative care is consulted to discuss goals of care. -Met with patient in room 357 this afternoon-- no family at bedside. Patient is sitting on edge of bed, pleasant and talkative. No discomforts at this time. NGT is hooked to LIS. -Patient is optimistic and wants to have the venting g-tube placed, which I agree with for palliative purposes. Risk of obstruction is obviously high. -Patient does want to continue with her TPN at home, but does not want to continue with chemo or immunotherapy. She needs to discuss this with her oncologist, and daughter. If patient wants to continue TPN, will not be able to go on hospice quite yet. Hospice cannot provide TPN or the labs associated with it for a long period of time, maybe only for a few days. -Would be recommended to go home with home health until patient declines further and is ready to stop TPN, then go on hospice care. Patient agrees that she doesn't feel she needs hospice right now. -Discussed code status. Patient wants to remain a full code at this time, but will discuss further with her and look over her living will at home. -Overall, goal is for comfort and quality of life. Hopefully patient can get venting g-tube and go home with her TPN and current plan. If she needs follow-up with Dr. Reynoso for pain or symptom management, can call [phone]. Once ready for hospice, oncologist or PCP could make referral. -Will follow up tomorrow when present to introduce palliative and see if there are further questions/concerns. (2) Obstruction, colon: (3) Neuroendocrine carcinoma metastatic to liver: Supervising Physician Co-Signing Physician Notes Chart reviewed, patient seen and examined. Collaborated with DEJUAN Salmeron. Patient with SBO due to tumor-previous stent with tumor overgrowth-second stent placed inside initial stent on 02/28 with good results. Patient reports positive loose stools, positive gas PE: Patient awake and alert, no acute distress. Cachectic HEENT: EOMI, hearing within normal limits. NG tube in place-on intermittent suction Respirations: Unlabored CV: Tachycardic Abdomen: Distended, nontender, diminished bowel sounds-positive bowel sounds on left upper and left lower quadrant. Neuro: Alert and oriented x4 Agree with above note, assessment and plan as per DEJUAN Salmeron. Patient is eager to discuss option of a venting [id number] that she would benefit if this can be placed. Will continue to follow and assist patient and with medical decision making. 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 Last immunotherapy was under the care of Dr. Fermín Chung--treatment not working and disease is progressing. Patient has undergone colonic stents. In the ED, CT ABD/pelvis shows high-grade obstruction at or just above colonic stent. She underwent repeat colonic stenting on 02/28, but unfortunately no improvement of the bowel obstruction. NGT is placed and is hooked to LIS. Patient has had bowel obstructions in the past as well. GI is consulted for possible palliative venting g-tube placement. Patient is TPN- dependent at home, but is still fully functional at home where she lives with her . Palliative care is consulted to discuss goals of care. Thank you kindly for this consult. Palliative care team will follow as needed. Allergies Allergy/AdvReac Type Severity Reaction Status Date / Time No Known Allergies Allergy Verified 02/28/19 13:40 Home Medications Home Medications Medication Instructions Recorded Confirmed Type albuterol sulfate [ProAir HFA] 2 puff INHALATION Q6H PRN 04/24/18 02/28/19 History paroxetine HCl 30 mg PO QAM 04/24/18 02/28/19 History Symbicort 1 puff INHALATION QAM 05/25/18 02/28/19 History simethicone [Gas Relief] 80 mg PO DIRECTED PRN 10/13/18 02/28/19 History cyclobenzaprine 10 mg PO TID PRN #90 tab 10/20/18 02/28/19 Rx lorazepam 0.5 mg PO BID PRN 11/04/18 02/28/19 History enoxaparin 50 mg SUBCUT Q12H 30 Days #30 ml 01/04/19 02/28/19 Rx Spiriva Respimat 2 puff INHALATION QAM 02/28/19 02/28/19 History allopurinol 300 mg PO DAILY 02/28/19 02/28/19 History diphenoxylate-atropine 1 tab PO Q4H PRN 02/28/19 02/28/19 History fentanyl 12 mcg TRANSDERMAL Q72H 02/28/19 02/28/19 History loperamide [Imodium A-D] 2 mg PO Q4H PRN 02/28/19 02/28/19 History oxycodone 0.25 mg PO Q4H PRN 02/28/19 02/28/19 History Patient History Medical History (Updated 03/03/19 @ 15:46 by DEJUAN Woodruff) Colon cancer (Chronic) S/P right hemicolectomy on 03/23/2017 (by Dr. Cheng). 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 S/P neoadjuvant modified FOLFOX 6 chemotherapy x 5 -Oxaliplatin induced the liver toxicity, received 5-Fluorouracil leucovorin x 7. Last cycle received on 02/12/2018. S/P right hemicolectomy on 03/23/2017 (by Dr. Cheng). 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 KRAS and BRAF mutation-->negative. 04/2018: -recurrent high-grade neuroendocrine carcinoma involving the retroperitoneal lymph regan region causing right hydronephrosis, S/P percutaneous nephrostomy drainage. -IVC thrombus, pulmonary embolism. - Essential thrombocythemia diagnosed in 2005, JAK2 mutation positive platelet count was over 1 million at that time the diagnosis. She is on hydroxyurea for that." Pulmonary embolism (Chronic) Stenosis colon s/p colonic stent Stricture of colon Thrombocytosis (Chronic) Surgical History H/O rotator cuff surgery (Chronic) History of arthroscopy of left knee (Chronic) History of partial surgical removal of colon (Chronic) Nephrostomy status Right nephrostomy tube in place S/P removal of right ovary (Chronic) Family History Grandmother (Paternal) , of childbirth No problems noted. Grandfather (Paternal) , of lung cancer at age 7 No problems noted. Father , of protsate cancer No problems noted. Mother , of breas cancer with metastasis to lung and brain No problems noted. Brother Age: 63 Prostate cancer Brother Age: 57 Prostate cancer Sister Age: 50 No problems noted. Daughter Age: 27 No problems noted. Other No pertinent family history Social History Preferred Language: Yoruba Communication Ability: Effective Mangle Tender Required: No Beliefs That Will Affect Care: None marital status: Current Living Situation: Spouse Other Information That Helps Us Care for You: No Feels Safe at Home: Yes Safety Concerns: Feels Safe At This Time Smoking Status: Former smoker Tobacco Type: cigarettes ; Cigarettes Per Day: 1.5 ppd X 20 years ; Do You Dip or Chew Tobacco: No ; Smoking End Date: 1999 ; Second Hand Exposure: No ; Tobacco Cessation Education Requested by Patient: No Hx Alcohol Use: No Hx Substance Use: No Review of Systems Review of Systems: Const: + generalized weakness ENMT: No dysphagia Resp: No SOB, no cough Cardio: No chest pain, + BLE edema-chronic GI: + abdominal pain, no nausea while NGT hooked to LIS; + small amount of flatus and small amount liquid stool MS: No musculoskeletal pain Neuro: No confusion Psych: No anxiety, no depression Physical Exam Constitutional: + cachectic and + frail appearing; no acute distress ENMT: external ear and nose normal, oropharynx normal Neck: normal visual inspection Respiratory: normal respiratory effort, lungs clear to auscultation Auscultation: + diminished lung sounds Cardiovascular: Rate/Rhythm: regular rate and regular rhythm Extremities: + edema (+2 pitting to BLE) Gastrointestinal (Abdomen): Inspection/Auscultation: + abdomen distended (mildly distended) and + hypoactive bowel sounds (only heart on right side of abdomen, absent on left) Percussion/Palpation: + abdomen not soft (firm) Neurologic: moves all extremities and awake; not confused Psychiatric: A+Ox3, euthymic affect Insight: good insight Results & Data Vital Signs (Past 12 Hours) Vital Signs Temp Pulse Pulse Resp BP 03/03/19 11:05 121 H 100/63 03/03/19 07:50 90/58 L 03/03/19 07:44 37.3 C 120 H 18 83/54 L Time Spent Midlevel 70 minutes with >50% of the time spent at bedside with patient discussing condition and GOC.
[2019-03-03] MEDS ORDERED: DAPTOmycin 275 MG in SYRINGE 0 ML IV SCH (16:00)
--- NOTE | 2019-03-03 16:53 | Hospitalist Progress Note ---
Date of Service March 03, 2019 Assessment & Plan (1) Obstruction, colon: (1) Bowel obstruction: (2) Stricture of colon: (3) Neuroendocrine carcinoma: - s/p Colonoscopy 02/28/19, replacement of rectosigmoid stent -repeat KUB: 1. Gaseous distention of central loops of what is suspected to represent small bowel. Some degree of obstruction or ileus is suspected. Follow-up advised. 2. Overlapping rectosigmoid stents, one of which is new from prior. 3. Appropriately positioned nasogastric tube. -Nausea uncontrolled with PRN antiemetics CT abdomen pelvis noted Repeat KUB ordered per GI keep NPO for now PRN antiemetics -Plan for possible PEG tube placement tomorrow Streptococcus intermedius bacteremia - Blood cultures: 03/13 Streptococcus intermedius -ID consulted -Recommend echocardiogram Repeat blood cultures 03/03/2019 -If negative will need 14 days of IV ceftriaxone from first negative blood culture Hydronephrosis, left: -CT ABD/pelvis showing moderate hydronephrosis on the left; likely secondary to tumor burden -Has nephrostomy tube on the right that was placed for obstruction secondary to tumor burden -Urology consulted Creatinine back to baseline Hypernatremia -Discussed with pharmacy, they will adjust TPN today -Nephrology also consulted IVC thrombosis: Pulmonary embolism: -On therapeutic dose Lovenox, will continue COPD (chronic obstructive pulmonary disease): -No signs of acute exacerbation -Continue home inhalers DVT prophylaxis: -On therapeutic dose Lovenox case discussed in detail at length with patient She is understanding, agreeable, comfortable with plan of care All questions answered Subjective Follow-up for small bowel obstruction, bacteremia Seen resting in bed, comfortable, no distress NGT in place draining bilious fluid Tolerating ice chips with some Gatorade States nausea is well controlled, no abdominal pain also improved today Patient is in good spirits, very pleasant No other symptoms Review of Systems Review of Systems: All systems reviewed & are unremarkable except as noted in HPI & below Physical Exam Physical Exam: General- oriented x 3, not in distress, speaks in sentences with no effort or accessory muscle use Eyes- anicteric Neck- no JVD Lungs- clear breath sounds bilaterally Heart-mild tachycardia, regular rhythm; no murmurs Abdomen-hypoactive bowel sounds, nondistended, soft, nontender Extremities-mild pretibial edema, no calf tenderness Neuro- alert, oriented x 3; no gross focal neurologic deficits Skin- warm & dry Results & Data Vital Signs (Past 12 Hours) Vital Signs Temp Pulse Pulse Resp BP 03/03/19 16:11 36.8 C 118 H 16 93/66 L 03/03/19 11:05 121 H 100/63 03/03/19 07:50 90/58 L 03/03/19 07:44 37.3 C 120 H 18 83/54 L Laboratory Results Laboratory Results - last 24 hr 03/02/19 03/02/19 03/03/19 18:03 23:47 05:51 Sodium Potassium Chloride Carbon Dioxide Anion Gap BUN Creatinine Est Cr Clr Drug Dosing Est GFR ( Amer) Est GFR (Non-Af Amer) BUN/Creatinine Ratio Glucose POC Glucose 129 H 169 H 180 H Calcium Phosphorus Magnesium 03/03/19 03/03/19 03/03/19 06:17 09:03 12:18 Sodium 155 H D Potassium 4.0 Chloride 126 H Carbon Dioxide 27 Anion Gap 2.0 L BUN 63 H Creatinine 1.31 H 1.13 Est Cr Clr Drug Dosing 31.9 37.0 Est GFR ( Amer) 50.4 60.3 Est GFR (Non-Af Amer) 43.5 52.0 BUN/Creatinine Ratio 56.0 H Glucose 120 H POC Glucose 116 H Calcium 7.2 L Phosphorus 3.0 Magnesium 2.7 H
--- NOTE | 2019-03-03 17:32 | Nephrology Consultation ---
Date of Consultation March 03, 2019 Assessment & Plan (1) Dehydration with hypernatremia: iatrogenic hypernatremia d/t sodium chloride loading to treat NGT losses which are hypotonic to NS; she is 6L negative since presentation and has lost nearly 12 L from upper GI tract; 2.9L free water deficit -repeat bmp now -started D5W at 150 mL hourly overnight w/ goal of giving just over half of free water deficit as of this AM (likely worse now) by morning -pharmacy to add free water to TPN for tomorrow evening as well -some of her edema may well be from salt load; note progressive hypoalbuminemia as well and may need TPN adjustment to address Present on Admission?: No (2) Hypotension due to hypovolemia: believe hypotension, tachycardia from dehydration; pt asymptomatic; not floridly septic at least in terms of sx; on lovenox so VTE unlikely -check orthostatics -check hgb now -hydrate as above Present on Admission?: No (3) Hydronephrosis, left: urology following; relates more to acute bowel obstruction per their assessment -daily bmp and cont strict I/O Present on Admission?: Yes History of Present Illness Reason for Consultation: hypernatremia on TPN Requesting Physician: Dr Doyle Attending Physician: Oli Doyle MD History of Present Illness 64 y/o F whom I'm asked to see for hypernatremia in the setting of TPN dependence after she was admitted here on 02/28 for a bowel obstruction in the setting of 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 Her sodium was 139 at 02/28 presentation; actually w/ hx of mild hyponatremia (was 121 on 02/17); since admission sNa has risen progressively to 147 yesterday, 155 today. also w/ marked hyperchloremia at 126 today. baseline creatinine 0.8-1.0: she was at baseline on presentation, peaked at 1.5 on 03/02, then today back to 1.1. she presented on 02/28 with emesis, abdominal pain, bright red bleeding SD. also w/ hx of atrophic R kidney and chronic R hydronephrosis due per pt to mets encasing / obstructing R ureter s/p R nephrostomy tube, PE/IVC thrombosis, thrombocytosis, s/p R hemicolectomy 03/2017, TPN dependence, copd. admission imaging showed high grade obstruction just above colonic stent as well as moderate L hydronephrosis. she underwent emergent colonoscopy w/ in stent restenting. urology evaluated pt and felt L hydronephrosis related more to acute bowel issues than to other issues. also peripheral blood cultures 1/2 from presentation grew Staph intermedius-inf dzs following and recommends rocephin, TTE, f/u cxs. GI is following and pt for consideration of PEG placement in am to allow her to vent upper GI drainage this route instead of NGT at home. Pharmacy is following for TPN and aware of hypernatremia; TPN for today remains per covering pharmacist pt's OP regimen. She is also getting aggressive fluid resuscitation d/t large output >> she had 2.7 L in today w/ 6.1L out, including 5L of gastric drainage and 1.1L UOP. pt states she feels well, is ambulating better, denies sob or orthostatic sx. edema new since arrival and progressive. Allergies Allergy/AdvReac Type Severity Reaction Status Date / Time No Known Allergies Allergy Verified 02/28/19 13:40 Home Medications Home Medications Medication Instructions Recorded Confirmed Type albuterol sulfate [ProAir HFA] 2 puff INHALATION Q6H PRN 04/24/18 02/28/19 History paroxetine HCl 30 mg PO QAM 04/24/18 02/28/19 History Symbicort 1 puff INHALATION QAM 05/25/18 02/28/19 History simethicone [Gas Relief] 80 mg PO DIRECTED PRN 10/13/18 02/28/19 History cyclobenzaprine 10 mg PO TID PRN #90 tab 10/20/18 02/28/19 Rx lorazepam 0.5 mg PO BID PRN 11/04/18 02/28/19 History enoxaparin 50 mg SUBCUT Q12H 30 Days #30 ml 01/04/19 02/28/19 Rx Spiriva Respimat 2 puff INHALATION QAM 02/28/19 02/28/19 History allopurinol 300 mg PO DAILY 02/28/19 02/28/19 History diphenoxylate-atropine 1 tab PO Q4H PRN 02/28/19 02/28/19 History fentanyl 12 mcg TRANSDERMAL Q72H 02/28/19 02/28/19 History loperamide [Imodium A-D] 2 mg PO Q4H PRN 02/28/19 02/28/19 History oxycodone 0.25 mg PO Q4H PRN 02/28/19 02/28/19 History Patient History Medical History (Updated 03/03/19 @ 17:53 by Odalis Colby MD, PhD) Colon cancer (Chronic) S/P right hemicolectomy on 03/23/2017 (by Dr. Cheng). 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 S/P neoadjuvant modified FOLFOX 6 chemotherapy x 5 -Oxaliplatin induced the liver toxicity, received 5-Fluorouracil leucovorin x 7. Last cycle received on 02/12/2018. S/P right hemicolectomy on 03/23/2017 (by Dr. Cheng). 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 KRAS and BRAF mutation-->negative. 04/2018: -recurrent high-grade neuroendocrine carcinoma involving the retroperitoneal lymph regan region causing right hydronephrosis, S/P percutaneous nephrostomy drainage. -IVC thrombus, pulmonary embolism. - Essential thrombocythemia diagnosed in 2005, JAK2 mutation positive platelet count was over 1 million at that time the diagnosis. She is on hydroxyurea for that." Pulmonary embolism (Chronic) Stenosis colon s/p colonic stent Stricture of colon Thrombocytosis (Chronic) Surgical History H/O rotator cuff surgery (Chronic) History of arthroscopy of left knee (Chronic) History of partial surgical removal of colon (Chronic) Nephrostomy status Right nephrostomy tube in place S/P removal of right ovary (Chronic) Family History Grandmother (Paternal) , of childbirth No problems noted. Grandfather (Paternal) , of lung cancer at age 7 No problems noted. Father , of protsate cancer No problems noted. Mother , of breas cancer with metastasis to lung and brain No problems noted. Brother Age: 63 Prostate cancer Brother Age: 57 Prostate cancer Sister Age: 50 No problems noted. Daughter Age: 27 No problems noted. Other No pertinent family history Social History Preferred Language: Micronesian Communication Ability: Effective Inside Outside Sales Representative Required: No Beliefs That Will Affect Care: None marital status: Current Living Situation: Spouse Other Information That Helps Us Care for You: No Feels Safe at Home: Yes Safety Concerns: Feels Safe At This Time Smoking Status: Former smoker Tobacco Type: cigarettes ; Cigarettes Per Day: 1.5 ppd X 20 years ; Do You Dip or Chew Tobacco: No ; Smoking End Date: 1999 ; Second Hand Exposure: No ; Tobacco Cessation Education Requested by Patient: No Hx Alcohol Use: No Hx Substance Use: No Review of Systems Review of Systems: All systems reviewed & are unremarkable except as noted in HPI & below Constitutional: no body aches and no fatigue Cardiovascular: + edema (new and progressive since admission); no dyspnea on exertion and no palpitations Gastrointestinal: no abdominal pain and no cramping states that bright red blood SD was present prior to admission; has since stopped Genitourinary: no dysuria, no urinary urgency and no decreased urination Physical Exam Constitutional: well developed, + cachectic, cooperative and + malnourished; no acute distress (ambulatory w/o asst/ on RA) and + not appropriately hydrated (dry MM, NGT present) Eyes: EOM intact bilaterally ENMT: Ears: no external ear abnormality Nose: no external nose abnormality Mouth: + muffled voice (hoarse) and + dry oral mucous membranes Neck: no nuchal rigidity Respiratory: normal respiratory effort Auscultation: lungs clear to auscultation bilaterally and + diminished lung sounds Cardiovascular: Rate/Rhythm: regular rhythm and + tachycardic Extremities: + edema (4+ R pedal and 3+ L pedal; 2-3 + BLE R>L; some proximal thighs; in teds) Gastrointestinal (Abdomen): Percussion/Palpation: abdomen soft; abdomen nontender Musculoskeletal: Extremities: strength 5/5 throughout Skin: no rashes, warm and dry Neurologic: roper, fluent speech, no tremor Psychiatric: A+Ox3, euthymic affect Speech: normal rate/rhythm/volume of speech Genitourinary: R nephrostomy w/ clear yellow urine Results & Data Vital Signs (Past 12 Hours) Vital Signs Temp Pulse Pulse Resp BP 03/03/19 16:11 36.8 C 118 H 16 93/66 L 03/03/19 11:05 121 H 100/63 03/03/19 07:50 90/58 L 03/03/19 07:44 37.3 C 120 H 18 83/54 L Laboratory Results 02/28/19 12:45 03/03/19 09:[address] abd/pelvis 03/02 FINDINGS: Imaged portions of the lower chest demonstrate multiple enlarged posterior mediastinal lymph nodes. Multiple lung metastases are again noted. Left lower lobe airspace opacity has developed since prior CT. Tip of nasogastric tube is within the distal body of the stomach. A right nephrostomy is in place. Right renal atrophy is again noted. Mild left hydronephrosis is unchanged. Innumerable liver metastases are similar to CT of February 28, 2019. [id number] amount of ascites is unchanged. Patient is status post right hemicolectomy. Interval placement of an additional stent within the rectosigmoid is noted. Colonic dilatation has resolved. Small bowel dilatation has improved. Small bowel is now mildly dilated, measuring up to 3.6 cm in caliber. Small bowel is fluid-filled as is the remaining portions of the colon. Perirectal infiltration is unchanged. An enlarged right iliac node, measuring 3.3 cm is again noted. Numerous additional retroperitoneal pathologic lymph nodes are present. Evidence for peritoneal carcinomatosis is better depicted on prior contrast enhanced exam. IMPRESSION: 1. Interval placement of a more proximal rectosigmoid stent and nasogastric tube with improvement in small bowel dilatation and resolution of colonic dilatation since prior CT of February 28, 2019. Persistent mild small bowel dilatation. 2. Otherwise, no significant change since CT of February 28, 2019 with extensive metastatic disease, as described above. 3. Bibasilar opacities, left greater than right, which favors pneumonia/aspiration.
[2019-03-03] MEDS ORDERED: DEXTROSE 5% 1,000 ML IV SCH (17:51)
[2019-03-03 18:22] LABS: Hematocrit (blood only) 28.4 % (37-47); Hemoglobin 8.6 g/dL (12.0-16.0); Mean Corpuscular Hemoglobin 25.7 pg (25-34); Mean Corpuscular Hgb Conc 30.3 g/dL (32-36); Mean Platelet Volume 9.7 fL (7.4-10.4); Nucleated RBC # (auto) 0.13 K/uL (0-0); Nucleated RBC % (auto) 0.9 %; Platelet Count 409 K/uL (130-400); RDW Coefficient of Variation 16.7 % (11.5-14.5); RDW Standard Deviation 51.6 fL (36.4-46.3); Red Blood Count 3.34 M/uL (4.2-5.4); White Blood Count 13.49 K/uL (4.8-10.8)
[2019-03-03 18:46] LABS: Est GFR (African American) 39.3; Est GFR (Non-African American) 33.9; Potassium 4.3 mmol/L (3.5-5.1)
[2019-03-03 19:18] LABS: ALC (manual) 0.94 K/uL (1.2-3.4); ANC (manual) 10.54 K/uL (1.4-6.5); Lymphocytes # (manual) 0.94 K/uL (1.2-3.4); Monocytes # (manual) 1.89 K/uL (0.11-0.59); Neutrophils # (manual) 10.54 K/uL (1.4-6.5); Neutrophils % (manual) 78.1 %; Promyelocytes # (manual) 0.12 K/uL (0-0); Target Cells 1+; Toxic Granulation 1+
[2019-03-03 19:32] LABS: Myelocytes % (manual) 0.9 %
[2019-03-03] MEDS: DEXTROSE 5% 1,000 ML IV SCH (19:44)
[2019-03-03] MEDS ORDERED: CENTRAL PN IV SCH (20:00)
[2019-03-03] MEDS ORDERED: TPN IV SCH (20:00)
[2019-03-03] MEDS: CENTRAL PN IV SCH ×2 (20:37→22:13)
[2019-03-03] MEDS: TPN IV SCH ×2 (20:37→22:13)
[2019-03-03] MEDS: [UNRECOGNIZED DRUG - NUTRITION] SCH (21:50)
[2019-03-04] MEDS: DEXTROSE 5% 1,000 ML IV SCH ×4 (02:18→21:38)
[2019-03-04] MEDS: HYDROmorphone INJ 0.5 MG/0.5 ML SYR IV PRN ×4 (04:00→20:52)
[2019-03-04 07:06] LABS: BUN Creatinine Ratio 47.4 (10-20); Calcium 7.6 mg/dl (8.5-10.1); Creatinine Clr Calc Pharmacy 28.2 ml/min; Est GFR (African American) 43.5; Est GFR (Non-African American) 37.6; Magnesium 2.4 mg/dl (1.8-2.4); Potassium 4.4 mmol/L (3.5-5.1)
[2019-03-04 07:11] LABS: Phosphorus 3.9 mg/dl (2.5-4.9)
[2019-03-04] MEDS: [UNRECOGNIZED DRUG - REMARK] SCH (07:17)
[2019-03-04] MEDS: HEPARIN 100 UNIT/ML 5ML FLUSH FLUSH PRN (08:11)
[2019-03-04] MEDS: CHECK FENTANYL PATCH PLACEMENT SCH ×3 (08:17→23:19)
[2019-03-04] MEDS: STOP TPN ORDER SCH (08:36)
[2019-03-04] MEDS: ENOXAPARIN INJ 60 MG/0.6 ML SYR SQ SCH (08:37)
--- NOTE | 2019-03-04 08:39 | XRay Report ---
XR KUB/Abdomen 1 view CLINICAL HISTORY: 64 years-old Female presenting with re-eval SBO. TECHNIQUE: Single supine view of the abdomen was obtained. COMPARISON: 03/03/2019. FINDINGS: Nasogastric tube, right nephrostomy tube, and 2 rect[address] remain in place. Anastomotic sutu re lines again noted in left mid abdomen. Nonobstructive bowel gas pattern. No gross pneumoperitoneum . Somewhat unusual appearance of the bowel gas pattern in the right abdomen. It is difficult to exclu de pneumatosis. Gastric wall thickening may also be present. Allowing for bowel gas and stool, no calcifications to suggest nephrolithiasis. Degenerative changes of the spine. IMPRESSION: 1. Unusual appearance of the bowel gas in the right mid abdomen. It is difficult to exclude pneumato sis. Correlate clinically. Attention on follow-up with short-term imaging suggested. 2. Possible gastric wall thickening. 3. Tubes and stents remain in place. 4. No gross radiographic evidence of a bowel obstruction. ACT 112: Negative or not required by law. Electronically signed by: Hunter Ochoa M.D. 03/04/2019 8:38 AM
[2019-03-04] MEDS: cefTRIAXone SODIUM 2,000 MG in DEXTROSE 5% 50 ML IV SCH (08:40)
[2019-03-04] MEDS: PARoxetine HCl 10 MG TAB PO SCH (08:40)
[2019-03-04] MEDS: TIOTROPIUM BROMIDE 5 PUFF/90 MCG INH INH SCH (08:41)
[2019-03-04] MEDS: allopurinoL 300 MG TAB PO SCH (08:41)
[2019-03-04] MEDS: BUDESONIDE/FORMOTEROL FUMARATE 160/4.5 60 PUFFS/INHALER INH SCH (08:41)
--- NOTE | 2019-03-04 09:46 | Infectious Disease Progress Nt ---
Date of Service March 04, 2019 Assessment & Plan (1) Gram positive sepsis: repeat blood cultures pending. will need echo to r/o veg. suspect GI translocation, no evidence clinically of port infection. If repeat blood cultures and echo negative, would give 14 days IV rocephin from first negative culture. I will be away until 03/17/2019, if any ongoing ID concerns, would suggest transfer. Subjective pt remains afebrile. on rocephin, tolerating well. wbc decreased to 14. Repeat blood cultures pending, echo not done yet. Results & Data Vital Signs (Past 12 Hours) Vital Signs Temp Pulse Resp BP Pulse Ox 03/04/19 08:03 36.8 C 106 H 16 88/53 L 96 03/03/19 22:47 36.5 C 97 H 16 103/61 97 Laboratory Results Microbiology 02/28/19 12:45 Blood Aerobic Blood Culture - Preliminary No growth in Aerobic bottle after 48 hours. 02/28/19 12:45 Blood Anaerobic Blood Culture - Preliminary No growth in Anaerobic bottle after 48 hours. 02/28/19 13:41 Blood Aerobic Blood Culture - Preliminary No growth in Aerobic bottle after 48 hours. 02/28/19 13:41 Blood Anaerobic Blood Culture - Preliminary Streptococcus intermedius 02/28/19 17:30 Urine,Clean Catch Urine Culture - Final Three types of organisms present, all moderate counts. Repeat collection recommended. No further identifications or sensitivities to follow. PG Care Time/CCT Total # of Minutes Spent Total Time Spent with Patient: Total time spent is greater than 50% in coordination of care (as documented) at patient's floor/unit and/or counseling patient:
--- NOTE | 2019-03-04 10:13 | Palliative Care Progress Note ---
Date of Service March 04, 2019 Assessment & Plan (1) Goals of care, counseling/discussion: -64 year old female patient with metastatic neuroendocrine carcinoma of the colon with mets to liver, presented to the hospital with recurrent small bowel obstruction. Last immunotherapy was under the care of Dr. Fermín Chung--treatment not working and disease is progressing. Patient has undergone colonic stents. In the ED, CT ABD/pelvis shows high-grade obstruction at or just above colonic stent. She underwent repeat colonic stenting on 02/28, but unfortunately no improvement of the bowel obstruction. NGT is placed and is hooked to LIS. Patient has had bowel obstructions in the past as well. GI is consulted for possible palliative venting g-tube placement. Patient is TPN- dependent at home, but is still fully functional at home where she lives with her . Palliative care is consulted to discuss goals of care. -Patient lying in her bed in no apparent distress. Patient , Ritesh at the bedside. NGT remains hooked up to LIS with dark bile output. -Prior to entering the room, s/w DEJUAN Wills regarding venting G-tube placement which, at this time, is not advisable due to the risk vs benefit. The patient has ascites which would not allow the G-tube to heal and would consistently ooze being more of a risk burden. At this time, the patient is not a surgical candidate. Goal to remove NGT and start liquids and hopefully advance diet as tolerated, focusing on comfort. -This information was relayed to the patient and her and they were disappointed, but accepting of this news. -The patients was tearful during the encounter. Both the patient and leah de la cruz stated that they realize their options are limited. We discussed her options at length. Returning home is their main goal. -They just found out that their only child is and due in September. She is realistic that she may not live until then, but would like to try, all while focusing on her comfort as well. -We discussed returning home with home health being able to continue TPN and tra nsitioning to Hospice when her symptoms progress. Update: 1230 PM -I returned to the patients room after she had an ECHO at the bedside. -We discussed CODE STATUS at length. The patient stated that she did not want resuscitated, but then later on in the conversation became tearful and stated she wants to live to see her grandbaby be born in September. Patient to remain a Full Code at this time. -We talked at length about transitioning goals to if we don't know if we will live to see her grandbaby be born, focusing on enjoying her daughters , feeling her belly, baby kicking etc. and pt became tearful during this conversation. -We discussed a POLSt form which would be helpful prior to discharge. -From a pain management standpoint, will D/C IV Morphine and continue Dilaudid to get a better understanding of full opioid use. Patient also has a Fentanyl patch 25mcg. Would consider increasing Fentanyl patch if IV opioid use increases. Goal to transition to oral/SL Dilaudid prior to discharge. -They do not have a goal to be home for [place] and would rather wait a few days to make sure she is stablized and comfortable prior to discharge. -I talked with case management who will discuss discharge planning options further. Palliative care will follow. -PPS: 40% (2) Obstruction, colon: (3) Neuroendocrine carcinoma metastatic to liver: Subjective Pt lying in her bed, denying pain. Pt reports (-) nausea, just dry mouth. She states "I want to drink" + diarrhea, jelly mucus consistency See A/P for further details. Review of Systems Review of Systems: Const: + generalized weakness ENMT: No dysphagia Resp: No SOB, no cough Cardio: No chest pain, + BLE edema-chronic GI: (-) nausea small amount liquid jelly consistency stool MS: No musculoskeletal pain Neuro: No confusion Psych: No anxiety, no depression Physical Exam Constitutional: + ill appearing, + thin, cooperative and comfortable Respiratory: normal respiratory effort, lungs clear to auscultation Cardiovascular: Rate/Rhythm: regular rate and regular rhythm Extremities: + pedal edema and + edema (+2 bilateral LE) Gastrointestinal (Abdomen): Percussion/Palpation: abdomen soft and + ascites Skin: no rashes, warm and dry Genitourinary: right nephrostomy drain in place Results & Data Vital Signs (Past 12 Hours) Vital Signs Temp Pulse Resp BP Pulse Ox 03/04/19 08:03 36.8 C 106 H 16 88/53 L 96 03/03/19 22:47 36.5 C 97 H 16 103/61 97 Supervising Physician Co-Signing Physician Notes Chart reviewed, patient seen and examined-no friends or family at bedside. Collaborated with DEJUAN June as well as attending physician Dr. Doyle Patient had NG clamped-tolerated well, NG tube now removed. Patient seen by GI-they were not willing to put in a venting G-tube in a patient with ascites and carcinomatosis. I have experience with a similar patient with similar circumstances-there is a md pediatric allergist at [place] [facility] who is willing to put in venting G-tube is in the presence of ascites and carcinomatosis for comfort. Gave information to patient. PE: NAD HEENT: EOMI, hearing within normal limits Respirations: Unlabored, no rhonchi or rales CV: Regular rate, positive lower extremity edema Abdomen: Distended, firm, diminished bowel sounds, nontender to light palpation Neuro: Alert and oriented x4 Agree with above note, assessment and plan as per DEJUAN June- hopefully patient can be discharged home soon once electrolytes balanced to con tinue TPN. PG Care Time/CCT Total # of Minutes Spent Total Time Spent with Patient: Total time spent is greater than 50% in coordination of care (as documented) at patient's floor/unit and/or counseling patient: 65 Prolonged Care Time Prolonged Care Time: Yes Total Prolonged Care Time: 60 Time Spent Midlevel Total time spent 65 minutes with > 50% of that time spent assessing symptoms, discussing goals of care and code status, and discharge planning with IDT Attending Spent 30 minutes in addition to the 65 minutes spent by DEJUAN for a total of 95 minutes with greater than 50% of the time spent at bedside discussing treatment options as well as goals of care. Critical Care Time Prolonged Care Time Prolonged Care Time: Yes Total Prolonged Care Time: 60 95
[2019-03-04] MEDS: MoRPHine SULFATE 4 MG/ML 1 ML CARP\\VIAL IV PRN (11:03)
--- NOTE | 2019-03-04 12:20 | Gastroenterology Progress Note ---
Date of Service March 04, 2019 Assessment & Plan (1) Obstruction, colon: Colon obstruction resolved with addition of second stent, though still at risk for future obstructions due to tumor burden. We have been asked to provide an opinion regarding placement of a venting PEG tube. She is not a candidate for PEG as persons with ascites do no not heal after placement of the tube placing them at risk for abdominal wall infection/abscess. DC NG, Trial of liquids, if does well then slowly advance diet. Should stay on low fiber, soft, easy to digest diet. Present on Admission?: Yes Supervising Physician Co-Signing Physician Notes I performed a history and physical examination of the patient, including specifically on physical exam - soft, nontender abdomen. I have discussed the patient's management with David. Please refer to the nurse practitioner's note for the documented findings and plan of care. Colonic obstruction resolved. Remove NG and advance diet as tolerated. Recall GI if needed. Subjective Ms. Guadalupe Araujo is a 64 yr old female with metastatic neuroendocrine tumor. Admitted with obstructive symptoms and second colon stent was placed with improvement in symptoms. Review of Systems Review of Systems: ROS: Gen: + weakness, denies fevers, + weight loss Eyes: No eye redness, or pain, no recent vision changes Resp: No SOB, no cough Cardio: No palpitations/irregular beats, no chest pain GI: Much improvement in abdominal pain since admission. Trial of clamping NG w/u nausea or vomiting : Denies pain on urination Skin: No jaundice, itching or new rashes Physical Exam Constitutional: WD/WN, vitals as above + ill appearing and + thin Eyes: PERRL, conjunctivae normal, anicteric sclerae ENMT: external ear and nose normal, oropharynx normal Neck: trachea midline, no thyromegaly Respiratory: normal respiratory effort, lungs clear to auscultation Cardiovascular: Rate/Rhythm: regular rate and regular rhythm bilateral lowe r leg 2+ edema Gastrointestinal (Abdomen): Percussion/Palpation: abdomen soft; abdomen nontender mildly distended, mild ascites, non taunt Skin: no rashes, warm and dry pale, dry Neurologic: PERRL, EOMI, accommodation nl, no face palsy, no dysarthria Psychiatric: A+Ox3, euthymic affect Results & Data Vital Signs (Past 12 Hours) Vital Signs Temp Pulse Resp BP Pulse Ox 03/04/19 08:03 36.8 C 106 H 16 88/53 L 96
[2019-03-04] MEDS: ONDANSETRON INJ 2 MG/ML 2 ML VIAL IV PRN (14:13)
[2019-03-04 17:17] LABS: BUN Creatinine Ratio 44.9 (10-20); Calcium 7.7 mg/dl (8.5-10.1); Creatinine Clr Calc Pharmacy 27.7 ml/min; Est GFR (African American) 42.5; Est GFR (Non-African American) 36.7; Potassium 4.1 mmol/L (3.5-5.1)
--- NOTE | 2019-03-04 18:05 | Nephrology Progress Note ---
Date of Service March 04, 2019 Assessment & Plan (1) Dehydration with hypernatremia: iatrogenic hypernatremia d/t sodium chloride loading to treat NGT losses which are hypotonic to NS; she was yesterday 6L negative since presentation and by this evening we have improved that to 4 L negative -repeat bmp from 1700 shows improved sNa after running it at 200 mL hourly most of day and slightly lower rate last evening -will lower D5W to 80 mL/hr -repat bmp in AM -concern for increasing ascites on exam >> ? if will need to consider tap -pharmacy to add free water to TPN for evening as well -some of her edema may well be from salt load; note progressive hypoalbuminemia as well and may need TPN adjustment to address (2) Hypotension due to hypovolemia: believe hypotension, tachycardia from dehydration; pt asymptomatic; not floridly septic at least in terms of sx; on lovenox so VTE unlikely -persistent, not much improved -hydrate as above (3) Hydronephrosis, left: urology following; relates more to acute bowel obstruction per their assessment -daily bmp and cont strict I/O Subjective denies pain, sob; endorses increased abdominal distension and increased LE edema to hips now; no n/v Review of Systems Review of Systems: All systems reviewed & are unremarkable except as noted in HPI & below Physical Exam Constitutional: well developed, + cachectic, cooperative and + malnourished; no acute distress (ambulatory w/o asst/ on RA) and + not appropriately hydrated (dry MM, NGT present) Eyes: EOM intact bilaterally ENMT: Ears: no external ear abnormality Nose: no external nose abnormality Mouth: + muffled voice (hoarse) and + dry oral mucous membranes Neck: no nuchal rigidity Respiratory: normal respiratory effort Auscultation: lungs clear to auscultation bilaterally and + diminished lung sounds Cardiovascular: Rate/Rhythm: regular rhythm and + tachycardic Extremities: + edema (4+ R pedal and 3+ L pedal; 2-3 + BLE R>L; some proximal thighs; in teds) Gastrointestinal (Abdomen): Inspection/Auscultation: + abdomen distended Percussion/Palpation: abdomen soft and + ascites; abdomen nontender Musculoskeletal: Extremities: strength 5/5 throughout Skin: no rashes, warm and dry Neurologic: roper, no tremor Psychiatric: A+Ox3, euthymic affect Speech: normal rate/rhythm/volume of speech Results & Data Vital Signs (Past 12 Hours) Vital Signs Temp Pulse Resp BP Pulse Ox 03/04/19 15:27 36.3 C L 97 H 18 103/70 95 03/04/19 08:03 36.8 C 106 H 16 88/53 L 96 Laboratory Results 03/03/19 18:11 03/04/19 16:45 Diagnostic Findings kub 1. Unusual appearance of the bowel gas in the right mid abdomen. It is difficult to exclude pneumatosis. Correlate clinically. Attention on follow-up with short-term imaging suggested. 2. Possible gastric wall thickening. 3. Tubes and stents remain in place. 4. No gross radiographic evidence of a bowel obstruction.
--- NOTE | 2019-03-04 18:51 | Hospitalist Progress Note ---
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 per GI, NG tube removed, clear liquids ordered tolerating Pepsi, Gatorade so far - monitor closely - Palliative care consulted patient still prefers to go home with TPN, case management on board, working on getting home health services then transition to hospice at home when patient is ready Streptococcus intermedius bacteremia - Blood cultures: 03/13 Streptococcus intermedius Repeat blood cultures 03/03/2019 -ID consulted -Recommend echocardiogram: no vegetation noted -If negative repeat blood culture, will need 14 days of IV ceftriaxone from first negative blood culture (patient has a port) Hypernatremia - Nephrology consulted D5W ordered - Na improving - TPN also adjusted by Pharmacy discuss with Pharmacy if TPN formulation needs to be change upon discharge Hydronephrosis, left: -CT ABD/pelvis showing moderate hydronephrosis on the left; likely secondary to tumor burden -Has nephrostomy tube on the right that was placed for obstruction secondary to tumor burden -Urology consulted Creatinine increased to 1.4-1.5 monitor IVC thrombosis: Pulmonary embolism: - usually On therapeutic dose Lovenox 50mg BID changed to daily if GFR < 30, monitor daily COPD (chronic obstructive pulmonary disease): -No signs of acute exacerbation -Continue home inhalers DVT prophylaxis: -On therapeutic dose Lovenox case discussed with patient and family in detail at length with patient they are understanding, agreeable, comfortable with plan of care All questions answered Subjective ff up for SBO family at bedside seen sitting up in bed, comfortable, in good spirit NG tube removed earlier, tolerating so far, taking sips of Pepsi, reports mild bloatedness no pain, nausea no chills no chest pain, SOB, palpitations, dizziness no other symptoms Review of Systems Review of Systems: All systems reviewed & are unremarkable except as noted in HPI & below Physical Exam Physical Exam: General- oriented x 3, not in distress, speaks in sentences with no effort or accessory muscle use Eyes- anicteric Neck- no JVD Lungs- clear breath sounds bilaterally, no rales/wheezes Heart- normal rate, regular rhythm; no murmurs Abdomen- (+) mild bowel sounds, nondistended, soft, nontender Extremities- (+) lower leg edema, no calf tenderness Neuro- alert, oriented x 3; no gross focal neurologic deficits Skin- warm & dry Results & Data Vital Signs (Past 12 Hours) Vital Signs Temp Pulse Resp BP Pulse Ox 03/04/19 15:27 36.3 C L 97 H 18 103/70 95 03/04/19 08:03 36.8 C 106 H 16 88/53 L 96
[2019-03-04] MEDS: TPN IV SCH (20:46)
[2019-03-04] MEDS: CENTRAL PN IV SCH (20:46)
[2019-03-04] MEDS: [UNRECOGNIZED DRUG - NUTRITION] SCH (21:39)
[2019-03-05] MEDS: HYDROmorphone INJ 0.5 MG/0.5 ML SYR IV PRN ×7 (00:10→19:19)
[2019-03-05] MEDS: ONDANSETRON INJ 2 MG/ML 2 ML VIAL IV PRN ×3 (05:29→19:19)
[2019-03-05] MEDS: [UNRECOGNIZED DRUG - REMARK] SCH (07:17)
[2019-03-05] MEDS: CHECK FENTANYL PATCH PLACEMENT SCH ×3 (07:28→23:42)
[2019-03-05] MEDS: METOCLOPRAMIDE HCL INJ 5 MG/ML 2 ML VIAL IV PRN ×3 (07:28→21:26)
[2019-03-05 08:00] LABS: BUN Creatinine Ratio 50.7 (10-20); Calcium 7.9 mg/dl (8.5-10.1); Est GFR (African American) 54.4; Potassium 3.9 mmol/L (3.5-5.1)
[2019-03-05 08:18] LABS: Phosphorus 3.3 mg/dl (2.5-4.9)
[2019-03-05] MEDS: CENTRAL PN IV SCH (08:41)
[2019-03-05] MEDS: TPN IV SCH (08:41)
[2019-03-05] MEDS: DEXTROSE 5% 1,000 ML IV SCH ×2 (08:42→17:34)
[2019-03-05] MEDS: STOP TPN ORDER SCH (08:42)
[2019-03-05] MEDS: cefTRIAXone SODIUM 2,000 MG in DEXTROSE 5% 50 ML IV SCH (08:45)
[2019-03-05] MEDS: PARoxetine HCl 10 MG TAB PO SCH (08:48)
[2019-03-05] MEDS: ENOXAPARIN INJ 60 MG/0.6 ML SYR SQ SCH (08:48)
[2019-03-05] MEDS: allopurinoL 300 MG TAB PO SCH (08:48)
[2019-03-05] MEDS: BUDESONIDE/FORMOTEROL FUMARATE 160/4.5 60 PUFFS/INHALER INH SCH (08:49)
[2019-03-05] MEDS: TIOTROPIUM BROMIDE 5 PUFF/90 MCG INH INH SCH (08:50)
--- NOTE | 2019-03-05 10:54 | Hospitalist Progress Note ---
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 As per GI, NG tube removed, clear liquids ordered Tolerating clear liquids orally and has been having bowel movement Symptomatically much better Palliative care consulted Patient still prefers to go home with TPN, case management on board, working on getting home health services then transition to hospice at home when patient is ready Streptococcus intermedius bacteremia Blood cultures: 03/13 Streptococcus intermedius Repeat blood cultures 03/03/2019 ID consulted-appreciate input and recommendation Recommend echocardiogram: no vegetation noted If negative repeat blood culture, will need 14 days of IV ceftriaxone from first negative blood culture (patient has a port) Hypernatremia Nephrology consulted D5W ordered as per nephrology TPN also adjusted by Pharmacy Sodium level has been normalized Bilateral leg edema Likely secondary to hypoalbuminemia Complicated by decreasing mobility Advised to elevate the legs while in bed and increase mobility Discussed with the patient Hydronephrosis, left: -CT ABD/pelvis showing moderate hydronephrosis on the left; likely secondary to tumor burden -Has nephrostomy tube on the right that was placed for obstruction secondary to tumor burden -Urology consulted: Appreciate input and recommendations -Creatinine increased to 1.4-1.5 IVC thrombosis: Pulmonary embolism: - usually On therapeutic dose Lovenox 50mg BID changed to daily if GFR < 30, monitor daily COPD (chronic obstructive pulmonary disease): -No signs of acute exacerbation -Continue home inhalers DVT prophylaxis: -On therapeutic dose Lovenox case discussed with patient and family in detail at length with patient they are understanding, agreeable, comfortable with plan of care All questions answered Subjective 03/05 The patient was seen and examined in medical floor She is status post right hemicolectomy on 03/23/2017 for CA of the colon with 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, not surgically resectable She was admitted with colonic obstruction and required colonoscopy with stent placement for decompression She has been on TPN as an outpatient Her obstructive symptoms are much better with less abdominal distention and bowel movement She complains to have more swelling of the legs Review of Systems Review of Systems: All systems reviewed and are unremarkable except as noted below Constitutional: + fatigue, + weakness and + weight loss Eyes: as per Subjective / HPI Gastrointestinal: + bloating and + cramping (Occasional); no abdominal pain, no nausea and no vomiting Physical Exam Physical Exam: Lying in bed with minimal discomfort Constitutional: + ill appearing and + thin; no acute distress Eyes: PERRL, conjunctivae normal, anicteric sclerae ENMT: external ear and nose normal, oropharynx normal Neck: trachea midline, no thyromegaly Respiratory: normal respiratory effort; no respiratory distress Auscultation: lungs clear to auscultation bilaterally Cardiovascular: Rate/Rhythm: regular rate and regular rhythm Heart Sounds: no murmur Extremities: + edema (Has bilateral lower extremity edema up to the upper thighs) Gastrointestinal (Abdomen): Inspection/Auscultation: + abdomen distended (Soft) and normal bowel sounds (Decreased) Percussion/Palpation: + abdomen tender (Minimally tender) and abdomen soft Musculoskeletal: No acute arthritis in any of the joints Results & Data Vital Signs (Past 12 Hours) Vital Signs Temp Pulse Resp BP BP Pulse Ox 03/05/19 08:20 36.5 C 97 H 18 109/76 95 03/04/19 23:00 36.3 C L 97 H 18 88/62 L 95 Laboratory Results [facility] 03/04/19 03/05/19 16:45 06:58 Sodium 146 H 143 Potassium 4.1 3.9 Chloride 113 H 111 H Carbon Dioxide 25 27 BUN 68 H 62 H Creatinine 1.51 H 1.23 H Glucose 144 H 151 H Calcium 7.7 L 7.9 L Medications Administered Current Inpatient Medications Acetaminophen (Tylenol) 650 mg PO Q4H PRN PRN Reason: pain/fever Stop: 03/30/19 17:16 Allopurinol (Zyloprim) 300 mg PO DAILY [facility] Stop: 03/31/19 08:59 Last Admin: 03/05/19 08:48 Dose: 300 mg Documented by: Budesonide/Formoterol Fumarate (Symbicort 160mcg/4.5mcg) 1 puffs INH QAM [facility] Stop: 03/31/19 08:59 Last Admin: 03/05/19 08:49 Dose: 1 puffs Documented by: Cyclobenzaprine HCl (Flexeril) 10 mg PO TID PRN PRN Reason: MUSCLE SPASM Stop: 03/30/19 17:22 Enoxaparin Sodium (Lovenox) 50 mg SQ DAILY [facility] Stop: 04/04/19 08:59 Last Admin: 03/05/19 08:48 Dose: 50 mg Documented by: Fentanyl (Duragesic) 25 mcg TD Q72H [facility] Stop: 03/16/19 11:59 Last Admin: 03/02/19 12:00 Dose: 25 mcg Documented by: Heparin Sodium (Porcine) (Heparin Sod 100 Unit/Ml Flush) 5 ml FLUSH PRN PRN PRN Reason: Flush Stop: 04/02/19 08:18 Last Admin: 03/04/19 08:11 Dose: 5 ml Documented by: Hydromorphone HCl (Dilaudid) 0.5 mg IV Q3H PRN PRN Reason: Pain Stop: 03/16/19 07:36 Last Admin: 03/05/19 08:50 Dose: 0.5 mg Documented by: Ceftriaxone Sodium 2,000 mg/ (Dextrose) 70 mls @ 140 mls/hr IV Q24H [facility] Stop: 03/17/19 08:59 Last Infusion: 03/05/19 09:18 Dose: Infused Documented by: Dextrose (D10w) 1,000 mls @ 0 mls/hr IV .Q0M [facility] Stop: 04/02/19 11:29 Nutrition (Parenteral) 1,700 (ml/ TPN BAG) 1,700 mls @ 75 mls/hr IV .[id number] [facility]; Protocol Stop: 03/06/19 07:59 Metoclopramide HCl (Reglan) 5 mg IV Q6H PRN PRN Reason: nausea/vomiting Stop: 03/30/19 17:16 Last Admin: 03/05/19 07:28 Dose: 5 mg Documented by: Miscellaneous (Stop Order) 1 ea N/A DAILY@0800 [facility] Stop: 04/01/19 07:59 Last Admin: 03/05/19 08:42 Dose: 1 ea Documented by: Sydnicellaneous (Fentanyl Patch Remove & Waste) 1 ea N/A Q72H [facility] Stop: 04/01/19 11:58 Last Admin: 03/02/19 12:00 Dose: 1 ea Documented by: Miscellaneous (Fentanyl Patch Check Placement) 1 ea N/A QS [facility] Stop: 04/01/19 15:59 Last Admin: 03/05/19 07:28 Dose: 1 ea Documented by: Miscellaneous (Pending Order) 1 ea N/A DAILY@2100 [facility] Stop: 04/02/19 20:59 Last Admin: 03/04/19 21:39 Dose: 1 ea Documented by: Miscellaneous (Pending Order) 1 ea N/A DAILY@0700 [facility] Stop: 04/03/19 06:59 Last Admin: 03/05/19 07:17 Dose: 1 ea Documented by: Miscellaneous Information (Pharmacy Tpn/Ppn Consult Active) 1 ea N/A UD PRN PRN Reason: Consult Stop: 04/02/19 11:35 Ondansetron HCl (Zofran) 4 mg IV Q6H PRN PRN Reason: nausea/vomiting Stop: 03/30/19 17:16 Last Admin: 03/05/19 05:29 Dose: 4 mg Documented by: Paroxetine HCl (Paroxetine Hcl) 30 mg PO QAM [facility] Stop: 03/31/19 08:59 Last Admin: 03/05/19 08:48 Dose: 30 mg Documented by: Tiotropium [place] (Spiriva) 1 puffs INH QAM [facility] Stop: 03/31/19 08:59 Last Admin: 03/05/19 08:50 Dose: 1 puffs Documented by:
[2019-03-05] MEDS: fentaNYL 25 MCG/HR TDSY TD SCH (11:54)
[2019-03-05 16:28] LABS: Creatinine Clr Calc Pharmacy 28.4 ml/min; Est GFR (African American) 43.9; Est GFR (Non-African American) 37.9
--- NOTE | 2019-03-05 16:39 | Nephrology Progress Note ---
Date of Service March 05, 2019 Assessment & Plan (1) Dehydration with hypernatremia: iatrogenic hypernatremia d/t sodium chloride loading to treat NGT losses which are hypotonic to NS; NGT out now -stopped D5W d/t progressive overload but creat this afternoon worse > will resume at slow rate -repat bmp in AM -concern for increasing ascites on exam >> ? if will need to consider tap -pharmacy to add low tonicity fluid to TPN -some of her edema may well be from salt load; note progressive hypoalbuminemia as well and may need TPN adjustment to address (2) Hypotension due to hypovolemia: believe hypotension, tachycardia from dehydration; pt asymptomatic; not floridly septic at least in terms of sx; on lovenox so VTE unlikely -persistent, not much improved -hydrate as above (3) Hydronephrosis, left: urology following; relates more to acute bowel obstruction per their assessment -daily bmp and cont strict I/O Subjective some uncontrolled pain at time I saw her; more abdominal distension but not uncomfortable; no sob; edema unchanged; no voiding difficulties did have emesis x 1 this am Review of Systems Review of Systems: All systems reviewed & are unremarkable except as noted in HPI & below Physical Exam Constitutional: well developed, + cachectic, cooperative and + malnourished; no acute distress (ambulatory w/o asst/ on RA) and + not appropriately hydrated (dry MM) Eyes: EOM intact bilaterally ENMT: Ears: no external ear abnormality Nose: no external nose abnormality Mouth: + muffled voice (hoarse) and + dry oral mucous membranes Neck: no nuchal rigidity Respiratory: normal respiratory effort Auscultation: lungs clear to auscultation bilaterally and + diminished lung sounds Cardiovascular: Rate/Rhythm: regular rhythm and + tachycardic Extremities: + edema (4+ R pedal and 3+ L pedal; 2-3 + BLE R>L; some proximal thighs) Gastrointestinal (Abdomen): Inspection/Auscultation: + abdomen distended Percussion/Palpation: abdomen soft and + ascites; abdomen nontender Musculoskeletal: Extremities: strength 5/5 throughout Skin: no rashes, warm and dry Neurologic: roper, fluent speech, no tremor Psychiatric: A+Ox3, euthymic affect Speech: normal rate/rhythm/volume of speech Results & Data Vital Signs (Past 12 Hours) Vital Signs Temp Pulse Resp BP Pulse Ox 03/05/19 15:17 36.3 C L 104 H 16 100/74 98 03/05/19 08:20 36.5 C 97 H 18 109/76 95 Laboratory Results 03/03/19 18:11 03/05/19 15:47
[2019-03-05] MEDS ORDERED: DEXTROSE 5% 1,000 ML IV SCH (16:45)
[2019-03-05] MEDS ORDERED: CENTRAL PN IV SCH (20:00)
[2019-03-05] MEDS ORDERED: TPN IV SCH (20:00)
[2019-03-05] MEDS: [UNRECOGNIZED DRUG - NUTRITION] SCH (21:20)
[2019-03-06] MEDS: ONDANSETRON INJ 2 MG/ML 2 ML VIAL IV PRN ×4 (01:05→23:38)
[2019-03-06] MEDS: HYDROmorphone INJ 0.5 MG/0.5 ML SYR IV PRN ×6 (01:05→20:36)
[2019-03-06] MEDS: METOCLOPRAMIDE HCL INJ 5 MG/ML 2 ML VIAL IV PRN ×2 (04:53→11:27)
[2019-03-06 05:04] LABS: Hematocrit (blood only) 26.3 % (37-47); Hemoglobin 8.1 g/dL (12.0-16.0); Mean Corpuscular Hemoglobin 26.2 pg (25-34); Mean Corpuscular Hgb Conc 30.8 g/dL (32-36); Mean Corpuscular Volume 85.1 fL (80-100); Mean Platelet Volume 9.8 fL (7.4-10.4); Nucleated RBC # (auto) 0.19 K/uL (0-0); Nucleated RBC % (auto) 1.3 %; Platelet Count 431 K/uL (130-400); RDW Coefficient of Variation 16.7 % (11.5-14.5); Red Blood Count 3.09 M/uL (4.2-5.4); White Blood Count 14.79 K/uL (4.8-10.8)
[2019-03-06 05:25] LABS: Basophils # (auto) 0.07 K/uL (0-0.2); Basophils % (auto) 0.5 %; Eosinophils # (auto) 0.04 K/uL (0-0.5); Eosinophils % (auto) 0.3 %; Hypochromasia Present; Immature Granulocytes # (auto) 0.99 K/uL (0.00-0.02); Immature Granulocytes % (auto) 6.7 %; Lymphocytes # (auto) 0.39 K/uL (1.2-3.4); Lymphocytes % (auto) 2.6 %; Monocytes # (auto) 1.11 K/uL (0.11-0.59); Monocytes % (auto) 7.5 %; Neutrophils # (auto) 12.19 K/uL (1.4-6.5); Neutrophils % (auto) 82.4 %; Polychromasia 1+; Toxic Granulation 1+
[2019-03-06 05:30] LABS: Albumin Level 1.3 gm/dl (3.4-5.0); BUN Creatinine Ratio 38.4 (10-20); Calcium 7.8 mg/dl (8.5-10.1); Est GFR (African American) 40.5; Magnesium 2.2 mg/dl (1.8-2.4); Potassium 4.1 mmol/L (3.5-5.1)
[2019-03-06 05:44] LABS: Albumin Globulin Ratio 0.3 (0.9-2); Bilirubin,Total 0.3 mg/dl (0.2-1); Globulin 4.3 gm/dl (2.5-4.0); Phosphorus 4.1 mg/dl (2.5-4.9); Total Protein 5.6 gm/dl (6.4-8.2)
[2019-03-06] MEDS: [UNRECOGNIZED DRUG - REMARK] SCH (06:36)
[2019-03-06] MEDS: CHECK FENTANYL PATCH PLACEMENT SCH ×3 (08:30→23:38)
[2019-03-06] MEDS: STOP TPN ORDER SCH (08:30)
[2019-03-06] MEDS: cefTRIAXone SODIUM 2,000 MG in DEXTROSE 5% 50 ML IV SCH (08:31)
[2019-03-06] MEDS: ENOXAPARIN INJ 60 MG/0.6 ML SYR SQ SCH (08:31)
[2019-03-06] MEDS: allopurinoL 300 MG TAB PO SCH (08:34)
[2019-03-06] MEDS: PARoxetine HCl 10 MG TAB PO SCH (08:34)
[2019-03-06] MEDS: BUDESONIDE/FORMOTEROL FUMARATE 160/4.5 60 PUFFS/INHALER INH SCH (08:35)
[2019-03-06] MEDS: TIOTROPIUM BROMIDE 5 PUFF/90 MCG INH INH SCH (09:20)
[2019-03-06] MEDS: DEXTROSE 5% 1,000 ML IV SCH (13:12)
--- NOTE | 2019-03-06 13:16 | Hospitalist Progress Note ---
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 As per GI, NG tube removed, clear liquids ordered Tolerating clear liquids orally and has been having bowel movement Symptomatically much better Remains stable as of today and back to her baseline Palliative care consulted Patient still prefers to go home with TPN, case management on board, working on getting home health services then transition to hospice at home when patient is ready Streptococcus intermedius bacteremia Blood cultures: 03/13 Streptococcus intermedius Repeat blood cultures 03/03/2019 ID consulted-appreciate input and recommendation Recommend echocardiogram: no vegetation noted If negative repeat blood culture, will need 14 days of IV ceftriaxone from first negative blood culture (patient has a port) Hypernatremia Nephrology consulted D5W ordered as per nephrology TPN also adjusted by Pharmacy Sodium level has been normalized 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 with scenic arts supervisor and she is ready to be discharged Bilateral leg edema Likely secondary to hypoalbuminemia Complicated by decreasing mobility Advised to elevate the legs while in bed and increase mobility Discussed with the patient Leg edema has been improving Hydronephrosis, left: -CT ABD/pelvis showing moderate hydronephrosis on the left; likely secondary to tumor burden -Has nephrostomy tube on the right that was placed for obstruction secondary to tumor burden -Urology consulted: Appreciate input and recommendations -Creatinine increased to 1.4-1.5 Creatinine slightly up today at 1.57 IVC thrombosis: Pulmonary embolism: - usually On therapeutic dose Lovenox 50mg BID changed to daily if GFR < 30, monitor daily COPD (chronic obstructive pulmonary disease): -No signs of acute exacerbation -Continue home inhalers DVT prophylaxis: -On therapeutic dose Lovenox Discussed with the daughter in detail The patient seems to be at her baseline and wants to go home We will get PT evaluation today and if okay she can be discharged this afternoon Social service for home health nurse and subsequent transfer to hospice care at home Subjective 03/05 The patient was seen and examined in medical floor She is status post right hemicolectomy on 03/23/2017 for CA of the colon with 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, not surgically resectable She was admitted with colonic obstruction and required colonoscopy with stent placement for decompression She has been on TPN as an outpatient Her obstructive symptoms are much better with less abdominal distention and bowel movement She complains to have more swelling of the legs 03/06 The patient was seen and examined in medical floor She remains stable and the leg swelling has been improving Denies any abdominal discomfort and bowel has been moving Abdomen seems to be distended but soft Review of Systems Review of Systems: All systems reviewed and are unremarkable except as noted below Constitutional: + fatigue, + weakness and + weight loss Eyes: as per Subjective / HPI Gastrointestinal: + bloating and + cramping (Occasional); no abdominal pain, no nausea and no vomiting Physical Exam Physical Exam: Lying in bed without any acute distress Constitutional: + ill appearing and + thin; no acute distress Eyes: PERRL, conjunctivae normal, anicteric sclerae ENMT: external ear and nose normal, oropharynx normal Neck: trachea midline, no thyromegaly Respiratory: normal respiratory effort; no respiratory distress Auscultation: lungs clear to auscultation bilaterally Cardiovascular: Rate/Rhythm: regular rate and regular rhythm Heart Sounds: no murmur Extremities: + edema (Has bilateral lower extremity edema up to the upper thighs) Gastrointestinal (Abdomen): Inspection/Auscultation: + abdomen distended (Soft) and normal bowel sounds (Decreased) Percussion/Palpation: + abdomen tender (Minimally tender) and abdomen soft Musculoskeletal: No acute arthritis involving any of the joints Lymphatic: no cervical or axillary lymphadenopathy Results & Data Vital Signs (Past 12 Hours) Vital Signs Temp Pulse Resp BP Pulse Ox 03/06/19 07:35 36.4 C L 89 19 127/85 96 Laboratory Results Short CBC 03/06/19 Range/Units 04:44 WBC 14.79 H (4.8-10.8) K/uL Hgb 8.1 L (12.0-16.0) g/dL Hct 26.3 L (37-47) % Plt Count 431 H (130-400) K/uL BMP 03/05/19 03/06/19 15:47 04:44 Sodium 138 Potassium 4.1 Chloride 104 Carbon Dioxide 28 BUN 60 H Creatinine 1.47 H 1.57 H Glucose 129 H Calcium 7.8 L Liver Function 03/06/19 Range/Units 04:44 Total Bilirubin 0.3 (0.2-1) mg/dl AST 80 H (15-37) U/L ALT 24 (12-78) U/L Alkaline Phosphatase 307 H (45-117) U/L Albumin 1.3 L (3.4-5.0) gm/dl Medications Administered Current Inpatient Medications Acetaminophen (Tylenol) 650 mg PO Q4H PRN PRN Reason: pain/fever Stop: 03/30/19 17:16 Allopurinol (Zyloprim) 300 mg PO DAILY [facility] Stop: 03/31/19 08:59 Last Admin: 03/06/19 08:34 Dose: 300 mg Documented by: Budesonide/Formoterol Fumarate (Symbicort 160mcg/4.5mcg) 1 puffs INH QAM [facility] Stop: 03/31/19 08:59 Last Admin: 03/06/19 08:35 Dose: 1 puffs Documented by: Cyclobenzaprine HCl (Flexeril) 10 mg PO TID PRN PRN Reason: MUSCLE SPASM Stop: 03/30/19 17:22 Enoxaparin Sodium (Lovenox) 50 mg SQ DAILY [facility] Stop: 04/04/19 08:59 Last Admin: 03/06/19 08:31 Dose: 50 mg Documented by: Fentanyl (Duragesic) 25 mcg TD Q72H [facility] Stop: 03/16/19 11:59 Last Admin: 03/05/19 11:54 Dose: 25 mcg Documented by: Heparin Sodium (Porcine) (Heparin Sod 100 Unit/Ml Flush) 5 ml FLUSH PRN PRN PRN Reason: Flush Stop: 04/02/19 08:18 Last Admin: 03/04/19 08:11 Dose: 5 ml Documented by: Hydromorphone HCl (Dilaudid) 0.5 mg IV Q3H PRN PRN Reason: Pain Stop: 03/16/19 07:36 Last Admin: 03/06/19 11:27 Dose: 0.5 mg Documented by: Ceftriaxone Sodium 2,000 mg/ (Dextrose) 70 mls @ 140 mls/hr IV Q24H [facility] Stop: 03/17/19 08:59 Last Infusion: 03/06/19 09:20 Dose: Infused Documented by: Dextrose (D10w) 1,000 mls @ 0 mls/hr IV .Q0M [facility] Stop: 04/02/19 11:29 Dextrose (D5w) 1,000 mls @ 50 mls/hr IV .Q20H [facility] Stop: 04/04/19 16:44 Last Infusion: 03/06/19 10:40 Dose: Infused Documented by: Nutrition (Parenteral) 1,700 (ml/ TPN BAG) 1,700 mls @ 65 mls/hr IV .Q24H [facility]; Protocol Stop: 03/07/19 08:00 Metoclopramide HCl (Reglan) 5 mg IV Q6H PRN PRN Reason: nausea/vomiting Stop: 03/30/19 17:16 Last Admin: 03/06/19 11:27 Dose: 5 mg Documented by: Miscellaneous (Stop Order) 1 ea N/A DAILY@0800 [facility] Stop: 04/01/19 07:59 Last Admin: 03/06/19 08:30 Dose: 1 ea Documented by: Miscellaneous (Fentanyl Patch Remove & Waste) 1 ea N/A Q72H [facility] Stop: 04/01/19 11:58 Last Admin: 03/05/19 11:55 Dose: 1 ea Documented by: Miscellaneous (Fentanyl Patch Check Placement) 1 ea N/A QS [facility] Stop: 04/01/19 15:59 Last Admin: 03/06/19 08:30 Dose: 1 ea Documented by: Miscellaneous (Pending Order) 1 ea N/A DAILY@2100 [facility] Stop: 04/02/19 20:59 Last Admin: 03/05/19 21:20 Dose: 1 ea Documented by: Miscellaneous (Pending Order) 1 ea N/A DAILY@0700 [facility] Stop: 04/03/19 06:59 Last Admin: 03/06/19 06:36 Dose: 1 ea Documented by: Miscellaneous Information (Pharmacy Tpn/Ppn Consult Active) 1 ea N/A UD PRN PRN Reason: Consult Stop: 04/02/19 11:35 Ondansetron HCl (Zofran) 4 mg IV Q6H PRN PRN Reason: nausea/vomiting Stop: 03/30/19 17:16 Last Admin: 03/06/19 08:01 Dose: 4 mg Documented by: Paroxetine HCl (Paroxetine Hcl) 30 mg PO QAM [facility] Stop: 03/31/19 08:59 Last Admin: 03/06/19 08:34 Dose: 30 mg Documented by: Tiotropium [place] (Spiriva) 1 puffs INH [facility] Stop: 03/31/19 08:59 Last Admin: 03/06/19 09:20 Dose: 1 puffs Documented by:
[2019-03-06] MEDS: TPN IV SCH ×2 (19:54→21:22)
[2019-03-06] MEDS: CENTRAL PN IV SCH ×2 (19:54→21:22)
[2019-03-06] MEDS: [UNRECOGNIZED DRUG - NUTRITION] SCH (21:07)
[2019-03-07] MEDS: METOCLOPRAMIDE HCL INJ 5 MG/ML 2 ML VIAL IV PRN ×4 (00:33→21:03)
[2019-03-07] MEDS: HYDROmorphone INJ 0.5 MG/0.5 ML SYR IV PRN ×6 (02:47→23:48)
[2019-03-07 07:03] LABS: BUN Creatinine Ratio 42.2 (10-20); Calcium 7.9 mg/dl (8.5-10.1); Creatinine Clr Calc Pharmacy 32.6 ml/min; Est GFR (African American) 48.6; Magnesium 2.1 mg/dl (1.8-2.4); Potassium 3.9 mmol/L (3.5-5.1)
[2019-03-07 07:05] LABS: Phosphorus 3.6 mg/dl (2.5-4.9)
[2019-03-07] MEDS: [UNRECOGNIZED DRUG - REMARK] SCH (07:22)
[2019-03-07] MEDS: STOP TPN ORDER SCH (07:25)
[2019-03-07] MEDS: CENTRAL PN IV SCH (07:25)
[2019-03-07] MEDS: TPN IV SCH (07:25)
[2019-03-07] MEDS: HEPARIN 100 UNIT/ML 5ML FLUSH FLUSH PRN (07:30)
[2019-03-07] MEDS: ONDANSETRON INJ 2 MG/ML 2 ML VIAL IV PRN ×2 (07:30→13:15)
[2019-03-07] MEDS: DEXTROSE 5% 1,000 ML IV SCH (07:30)
[2019-03-07] MEDS: CHECK FENTANYL PATCH PLACEMENT SCH ×3 (07:30→23:49)
[2019-03-07] MEDS: PARoxetine HCl 10 MG TAB PO SCH (08:52)
[2019-03-07] MEDS: ENOXAPARIN INJ 60 MG/0.6 ML SYR SQ SCH (08:52)
[2019-03-07] MEDS: BUDESONIDE/FORMOTEROL FUMARATE 160/4.5 60 PUFFS/INHALER INH SCH (08:53)
[2019-03-07] MEDS: TIOTROPIUM BROMIDE 5 PUFF/90 MCG INH INH SCH (08:53)
[2019-03-07] MEDS: allopurinoL 300 MG TAB PO SCH (08:53)
[2019-03-07] MEDS: cefTRIAXone SODIUM 2,000 MG in DEXTROSE 5% 50 ML IV SCH (08:54)
--- NOTE | 2019-03-07 15:53 | Hospitalist Progress Note ---
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 As per GI, NG tube removed, clear liquids ordered Tolerating clear liquids orally and has been having bowel movement Symptomatically much better Remains stable as of today and back to her baseline Has been complaining of diarrhea since this morning and getting generally weak and lethargic Profuse diarrhea Likely secondary to use of intravenous antibiotic and rule out any C. difficile colitis Could be due to post obstructive diarrhea We will hold TPN for today and check electrolytes tomorrow Palliative care consulted Patient still prefers to go home with TPN, case management on board, working on getting home health services then transition to hospice at home when patient is ready Patient is very depressed, thinking about withholding TPN and discussing with the family members Discussed with palliative care, they will try to talk to the patient for further management Streptococcus intermedius bacteremia Blood cultures: 03/13 Streptococcus intermedius Repeat blood cultures 03/03/2019 ID consulted-appreciate input and recommendation Recommend echocardiogram: no vegetation noted If negative repeat blood culture, will need 14 days of IV ceftriaxone from first negative blood culture (patient has a port) Hypernatremia Nephrology consulted D5W ordered as per nephrology TPN also adjusted by Pharmacy Sodium level has been normalized Discussed with binder coverstitch and she is ready to be discharged Bilateral leg edema Likely secondary to hypoalbuminemia Complicated by decreasing mobility Advised to elevate the legs while in bed and increase mobility Discussed with the patient Leg edema has been improving Hydronephrosis, left: -CT ABD/pelvis showing moderate hydronephrosis on the left; likely secondary to tumor burden -Has nephrostomy tube on the right that was placed for obstruction secondary to tumor burden -Urology consulted: Appreciate input and recommendations -Creatinine increased to 1.4-1.5 Creatinine slightly up today at 1.57 IVC thrombosis: Pulmonary embolism: - usually On therapeutic dose Lovenox 50mg BID changed to daily if GFR < 30, monitor daily COPD (chronic obstructive pulmonary disease): -No signs of acute exacerbation -Continue home inhalers DVT prophylaxis: -On therapeutic dose Lovenox Discussed with the daughter in detail The patient seems to be at her baseline and wants to go home We will get PT evaluation today and if okay she can be discharged this afternoon Social service for home health nurse and subsequent transfer to hospice care at home Discussed with the family members Prognosis remains poor Subjective 03/05 The patient was seen and examined in medical floor She is status post right hemicolectomy on 03/23/2017 for CA of the colon with 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, not surgically resectable She was admitted with colonic obstruction and required colonoscopy with stent placement for decompression She has been on TPN as an outpatient Her obstructive symptoms are much better with less abdominal distention and bowel movement She complains to have more swelling of the legs 03/06 The patient was seen and examined in medical floor She remains stable and the leg swelling has been improving Denies any abdominal discomfort and bowel has been moving Abdomen seems to be distended but soft 03/07 The patient was seen and examined in medical floor in presence of the and the daughter She has been complaining of diarrhea mostly since this morning Remains generally weak and lethargic Is not tolerating TPN and not getting any physical therapy Review of Systems Review of Systems: All systems reviewed and are unremarkable except as noted below Constitutional: + fatigue, + weakness and + weight loss Eyes: as per Subjective / HPI Gastrointestinal: + bloating and + cramping (Occasional); no abdominal pain, no nausea and no vomiting Physical Exam Physical Exam: Lying in bed with moderate discomfort Constitutional: + ill appearing and + thin; no acute distress Eyes: PERRL, conjunctivae normal, anicteric sclerae ENMT: external ear and nose normal, oropharynx normal Neck: trachea midline, no thyromegaly Respiratory: normal respiratory effort; no respiratory distress Auscultation: lungs clear to auscultation bilaterally Cardiovascular: Rate/Rhythm: regular rate and regular rhythm Heart Sounds: no murmur Extremities: + edema (Has bilateral lower extremity edema up to the upper thighs) Gastrointestinal (Abdomen): Inspection/Auscultation: + abdomen distended (Soft) and normal bowel sounds (Decreased) Percussion/Palpation: + abdomen tender (Minimally tender) and abdomen soft Musculoskeletal: No acute arthritis in any joints Lymphatic: no cervical or axillary lymphadenopathy Results & Data Vital Signs (Past 12 Hours) Vital Signs Temp Pulse Resp BP Pulse Ox 03/07/19 15:20 36.7 C 101 H 16 107/67 93 03/07/19 08:18 36.7 C 80 16 107/67 93 Laboratory Results BMP 03/07/19 06:14 Sodium 134 L Potassium 3.9 Chloride 97 L Carbon Dioxide 32 BUN 57 H Creatinine 1.35 H Glucose 145 H Calcium 7.9 L Medications Administered Current Inpatient Medications Acetaminophen (Tylenol) 650 mg PO Q4H PRN PRN Reason: pain/fever Stop: 03/30/19 17:16 Allopurinol (Zyloprim) 300 mg PO DAILY VERONICA Stop: 03/31/19 08:59 Last Admin: 03/07/19 08:53 Dose: 300 mg Documented by: Budesonide/Formoterol Fumarate (Symbicort 160mcg/4.5mcg) 1 puffs INH QAM VERONICA Stop: 03/31/19 08:59 Last Admin: 03/07/19 08:53 Dose: 1 puffs Documented by: Cyclobenzaprine HCl (Flexeril) 10 mg PO TID PRN PRN Reason: MUSCLE SPASM Stop: 03/30/19 17:22 Enoxaparin Sodium (Lovenox) 50 mg SQ DAILY [facility] Stop: 04/04/19 08:59 Last Admin: 03/07/19 08:52 Dose: 50 mg Documented by: Fentanyl (Duragesic) 25 mcg TD Q72H [facility] Stop: 03/16/19 11:59 Last Admin: 03/05/19 11:54 Dose: 25 mcg Documented by: Heparin Sodium (Porcine) (Heparin Sod 100 Unit/Ml Flush) 5 ml FLUSH PRN PRN PRN Reason: Flush Stop: 04/02/19 08:18 Last Admin: 03/07/19 07:30 Dose: 5 ml Documented by: Hydromorphone HCl (Dilaudid) 0.5 mg IV Q3H PRN PRN Reason: Pain Stop: 03/16/19 07:36 Last Admin: 03/07/19 13:15 Dose: 0.5 mg Documented by: Ceftriaxone Sodium 2,000 mg/ (Dextrose) 70 mls @ 140 mls/hr IV Q24H VERONICA Stop: 03/17/19 08:59 Last Infusion: 03/07/19 09:24 Dose: Infused Documented by: Dextrose (D10w) 1,000 mls @ 0 mls/hr IV .Q0M [facility] Stop: 04/02/19 11:29 Nutrition (Parenteral) 1,700 (ml/ TPN BAG) 1,700 mls @ 65 mls/hr IV .Q24H [facility]; Protocol Stop: 03/08/19 08:00 Metoclopramide HCl (Reglan) 5 mg IV Q6H PRN PRN Reason: nausea/vomiting Stop: 03/30/19 17:16 Last Admin: 03/07/19 15:22 Dose: 5 mg Documented by: Miscellaneous (Stop Order) 1 ea N/A DAILY@0800 [facility] Stop: 04/01/19 07:59 Last Admin: 03/07/19 07:25 Dose: 1 ea Documented by: Miscellaneous (Fentanyl Patch Remove & Waste) 1 ea N/A Q72H [facility] Stop: 04/01/19 11:58 Last Admin: 03/05/19 11:55 Dose: 1 ea Documented by: Miscellaneous (Fentanyl Patch Check Placement) 1 ea N/A QS [facility] Stop: 04/01/19 15:59 Last Admin: 03/07/19 15:22 Dose: 1 ea Documented by: Miscellaneous (Pending Order) 1 ea N/A DAILY@2100 [facility] Stop: 04/02/19 20:59 Last Admin: 03/06/19 21:07 Dose: 1 ea Documented by: Miscellaneous (Pending Order) 1 ea N/A DAILY@0700 [facility] Stop: 04/03/19 06:59 Last Admin: 03/07/19 07:22 Dose: 1 ea Documented by: Miscellaneous Information (Pharmacy Tpn/Ppn Consult Active) 1 ea N/A UD PRN PRN Reason: Consult Stop: 04/02/19 11:35 Ondansetron HCl (Zofran) 4 mg IV Q6H PRN PRN Reason: nausea/vomiting Stop: 03/30/19 17:16 Last Admin: 03/07/19 13:15 Dose: 4 mg Documented by: Paroxetine HCl (Paroxetine Hcl) 30 mg PO [facility] Stop: 03/31/19 08:59 Last Admin: 03/07/19 08:52 Dose: 30 mg Documented by: Tiotropium [place] (Spiriva) 1 puffs INH [facility] Stop: 03/31/19 08:59 Last Admin: 03/07/19 08:53 Dose: 1 puffs Documented by:
[2019-03-07] MEDS ORDERED: CENTRAL PN IV SCH (20:00)
[2019-03-07] MEDS ORDERED: TPN IV SCH (20:00)
[2019-03-08] MEDS: HYDROmorphone INJ 0.5 MG/0.5 ML SYR IV PRN ×4 (05:06→15:17)
[2019-03-08 05:55] LABS: Hematocrit (blood only) 26.2 % (37-47); Hemoglobin 8.3 g/dL (12.0-16.0); Mean Corpuscular Hgb Conc 31.7 g/dL (32-36); Mean Corpuscular Volume 82.1 fL (80-100); Mean Platelet Volume 10.3 fL (7.4-10.4); Nucleated RBC # (auto) 0.12 K/uL (0-0); Nucleated RBC % (auto) 0.7 %; Platelet Count 414 K/uL (130-400); RDW Coefficient of Variation 16.6 % (11.5-14.5); RDW Standard Deviation 49.6 fL (36.4-46.3); Red Blood Count 3.19 M/uL (4.2-5.4); White Blood Count 18.08 K/uL (4.8-10.8)
[2019-03-08 06:27] LABS: Albumin Level 1.3 gm/dl (3.4-5.0); BUN Creatinine Ratio 38.9 (10-20); Calcium 8.3 mg/dl (8.5-10.1); Creatinine Clr Calc Pharmacy 29.5 ml/min; Est GFR (African American) 43.2; Est GFR (Non-African American) 37.3; Magnesium 2.3 mg/dl (1.8-2.4); Potassium 3.7 mmol/L (3.5-5.1)
[2019-03-08 06:43] LABS: Albumin Globulin Ratio 0.3 (0.9-2); Bilirubin,Total 0.5 mg/dl (0.2-1); Globulin 4.2 gm/dl (2.5-4.0); Phosphorus 5.6 mg/dl (2.5-4.9); Total Protein 5.5 gm/dl (6.4-8.2)
[2019-03-08 06:47] LABS: Basophils # (auto) 0.04 K/uL (0-0.2); Basophils % (auto) 0.2 %; Eosinophils # (auto) 0.02 K/uL (0-0.5); Eosinophils % (auto) 0.1 %; Immature Granulocytes # (auto) 0.61 K/uL (0.00-0.02); Immature Granulocytes % (auto) 3.4 %; Lymphocytes # (auto) 0.52 K/uL (1.2-3.4); Lymphocytes % (auto) 2.9 %; Monocytes # (auto) 1.06 K/uL (0.11-0.59); Monocytes % (auto) 5.9 %; Neutrophils # (auto) 15.83 K/uL (1.4-6.5); Neutrophils % (auto) 87.5 %
[2019-03-08] MEDS: METOCLOPRAMIDE HCL INJ 5 MG/ML 2 ML VIAL IV PRN ×2 (08:00→21:40)
[2019-03-08] MEDS: CHECK FENTANYL PATCH PLACEMENT SCH ×3 (08:03→23:28)
[2019-03-08] MEDS: HEPARIN 100 UNIT/ML 5ML FLUSH FLUSH PRN (09:26)
[2019-03-08] MEDS: BUDESONIDE/FORMOTEROL FUMARATE 160/4.5 60 PUFFS/INHALER INH SCH (09:32)
[2019-03-08] MEDS: PARoxetine HCl 10 MG TAB PO SCH (09:32)
[2019-03-08] MEDS: allopurinoL 300 MG TAB PO SCH (09:32)
[2019-03-08] MEDS: TIOTROPIUM BROMIDE 5 PUFF/90 MCG INH INH SCH (09:33)
[2019-03-08] MEDS: cefTRIAXone SODIUM 2,000 MG in DEXTROSE 5% 50 ML IV SCH (09:57)
[2019-03-08] MEDS: ENOXAPARIN INJ 60 MG/0.6 ML SYR SQ SCH (10:03)
[2019-03-08] MEDS: fentaNYL 50 MCG/HR TDSY TD SCH (10:37)
[2019-03-08] MEDS: MoRPHine SULFATE 5 MG/0.25 ML UDP PO PRN ×3 (10:40→21:40)
--- NOTE | 2019-03-08 15:19 | Hospitalist Progress Note ---
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 As per GI, NG tube removed, clear liquids ordered Tolerating clear liquids orally and has been having bowel movement Symptomatically much better Remains stable as of today and back to her baseline Has been complaining of diarrhea since this morning and getting generally weak and lethargic Profuse diarrhea Likely secondary to use of intravenous antibiotic and rule out any C. difficile colitis Could be due to post obstructive diarrhea We will hold TPN for today and check electrolytes tomorrow C Diff-negative Palliative care consulted Patient still prefers to go home with TPN, case management on board, working on getting home health services then transition to hospice at home when patient is ready Patient is very depressed, thinking about withholding TPN and discussing with the family members Discussed with palliative care, they will try to talk to the patient for further management Streptococcus intermedius bacteremia Blood cultures: 03/13 Streptococcus intermedius Repeat blood cultures 03/03/2019 ID consulted-appreciate input and recommendation Recommend echocardiogram: no vegetation noted If negative repeat blood culture, will need 14 days of IV ceftriaxone from first negative blood culture (patient has a port) Hypernatremia Nephrology consulted D5W ordered as per nephrology TPN also adjusted by Pharmacy Sodium level has been normalized Discussed with center aisle cashier and she is ready to be discharged Bilateral leg edema Likely secondary to hypoalbuminemia Complicated by decreasing mobility Advised to elevate the legs while in bed and increase mobility Discussed with the patient Leg edema has been improving Hydronephrosis, left: -CT ABD/pelvis showing moderate hydronephrosis on the left; likely secondary to tumor burden -Has nephrostomy tube on the right that was placed for obstruction secondary to tumor burden -Urology consulted: Appreciate input and recommendations -Creatinine increased to 1.4-1.5 Creatinine slightly up today at 1.57 IVC thrombosis: Pulmonary embolism: - usually On therapeutic dose Lovenox 50mg BID changed to daily if GFR < 30, monitor daily COPD (chronic obstructive pulmonary disease): -No signs of acute exacerbation -Continue home inhalers DVT prophylaxis: -On therapeutic dose Lovenox Discussed with the daughter in detail The patient seems to be at her baseline and wants to go home We will get PT evaluation today and if okay she can be discharged this afternoon Social service for home health nurse and subsequent transfer to hospice care at home Discussed with the family members The dose of fentanyl has been increased to 50 mcg Roxanol has been prescribed as needed, continue intravenous Dilaudid as needed Phenergan intravenously was given to improve nausea and/or vomiting on top of metoclopramide Prognosis remains poor (2) Comfort measures only status: Detailed discussion with the patient and the family members has been going on for the last few days She decided to go for comfort care at this time Does not under try anymore TPN and wants to have more pain medications Discussed with the family members and they are all agreeable with the decision She was made DNR, TPN and other labs were discontinued She will still have antibiotic and current medications Prognosis remains poor Subjective 03/05 The patient was seen and examined in medical floor She is status post right hemicolectomy on 03/23/2017 for CA of the colon with 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, not surgically resectable She was admitted with colonic obstruction and required colonoscopy with stent placement for decompression She has been on TPN as an outpatient Her obstructive symptoms are much better with less abdominal distention and bowel movement She complains to have more swelling of the legs 03/06 The patient was seen and examined in medical floor She remains stable and the leg swelling has been improving Denies any abdominal discomfort and bowel has been moving Abdomen seems to be distended but soft 03/07 The patient was seen and examined in medical floor in presence of the and the daughter She has been complaining of diarrhea mostly since this morning Remains generally weak and lethargic Is not tolerating TPN and not getting any physical therapy 03/08 The patient was seen and examined in presence of the family members She has been feeling a little worse today with increasing abdominal distention with increasing pain, nausea and vomiting She does not want to have any more TPN and wants to have adequate pain relief and be comfortable Discussed with the family members and we are all agreeable to her decision She was made DNR as well Review of Systems Review of Systems: All systems reviewed and are unremarkable except as noted below Constitutional: + fatigue, + weakness and + weight loss Eyes: as per Subjective / HPI Gastrointestinal: + bloating and + cramping (Occasional); no abdominal pain, no nausea and no vomiting Physical Exam Physical Exam: Lying in bed without any significant symptoms Constitutional: + ill appearing and + thin; no acute distress Eyes: PERRL, conjunctivae normal, anicteric sclerae ENMT: external ear and nose normal, oropharynx normal Neck: trachea midline, no thyromegaly Respiratory: normal respiratory effort; no respiratory distress Auscultation: lungs clear to auscultation bilaterally Cardiovascular: Rate/Rhythm: regular rate and regular rhythm Heart Sounds: no murmur Extremities: + edema (Has bilateral lower extremity edema up to the upper thighs) Gastrointestinal (Abdomen): Inspection/Auscultation: + abdomen distended (Soft) and normal bowel sounds (Decreased) Percussion/Palpation: + abdomen tender (Minimally tender) and abdomen soft Lymphatic: no cervical or axillary lymphadenopathy Results & Data Vital Signs (Past 12 Hours) Vital Signs Temp Pulse Resp BP Pulse Ox 03/08/19 14:57 36.3 C L 99 H 17 112/75 95 03/08/19 07:34 36.5 C 99 H 16 105/70 94
[2019-03-08] MEDS: PROMETHAZINE HCL 12.5 MG in SODIUM CHLORIDE 0.9% 50 ML IV PRN (15:53)
[2019-03-09] MEDS: HYDROmorphone INJ 0.5 MG/0.5 ML SYR IV PRN ×4 (00:27→18:58)
[2019-03-09] MEDS: MoRPHine SULFATE 5 MG/0.25 ML UDP PO PRN ×2 (03:46→08:42)
[2019-03-09] MEDS: METOCLOPRAMIDE HCL INJ 5 MG/ML 2 ML VIAL IV PRN ×2 (03:48→19:38)
[2019-03-09 05:59] LABS: BUN Creatinine Ratio 35.8 (10-20); Calcium 8.1 mg/dl (8.5-10.1); Creatinine Clr Calc Pharmacy 25.2 ml/min; Est GFR (African American) 35.5; Est GFR (Non-African American) 30.7; Potassium 3.5 mmol/L (3.5-5.1)
[2019-03-09] MEDS: D5W AND NSS 1,000 ML IV SCH (07:14)
[2019-03-09] MEDS: cefTRIAXone SODIUM 2,000 MG in DEXTROSE 5% 50 ML IV SCH (09:46)
[2019-03-09] MEDS: CHECK FENTANYL PATCH PLACEMENT SCH ×3 (09:46→23:49)
[2019-03-09] MEDS: allopurinoL 300 MG TAB PO SCH (10:02)
[2019-03-09] MEDS: PARoxetine HCl 10 MG TAB PO SCH (10:02)
[2019-03-09] MEDS: BUDESONIDE/FORMOTEROL FUMARATE 160/4.5 60 PUFFS/INHALER INH SCH (10:03)
[2019-03-09] MEDS: TIOTROPIUM BROMIDE 5 PUFF/90 MCG INH INH SCH (10:03)
[2019-03-09] MEDS: ENOXAPARIN INJ 60 MG/0.6 ML SYR SQ SCH (10:04)
--- NOTE | 2019-03-09 10:15 | Nephrology Progress Note ---
Date of Service March 09, 2019 Assessment & Plan (1) Hypotension due to hypovolemia: believe hypotension, tachycardia from dehydration; pt asymptomatic; not floridly septic at least in terms of sx; on lovenox so VTE unlikely -persistent, not much improved -Agree with IV fluids (2) Hydronephrosis, left: urology following; relates more to acute bowel obstruction per their assessment -daily bmp and cont strict I/O (3) NELSY (acute kidney injury): Due to prerenal azotemia. Patient was net -2 L. Continue IV fluids at 75 mL/h. Patient is interested in going home with hospice. Renal will sign off. Please call if additional questions or concerns. Subjective Patient complains of abdominal pain. She has a nephrostomy tube on the right and is making urine. She was net -2 L yesterday. Creatinine up trending to 1.7 today. No shortness of breath. was at the bedside Review of Systems Review of Systems: All systems reviewed & are unremarkable except as noted in HPI & below Physical Exam Physical Exam: General exam: Cachectic, no acute distress HEENT: Pupils are equal and reactive to light Neck: No JVD, neck is supple trachea is midline Respiratory system: Clear breath sounds bilaterally. Gastrointestinal: Abdomen is distended, tender, bowel sounds are present. Nephrostomy tube on the right CVS: Regular rate and rhythm. No murmurs, rubs or gallops Musculoskeletal: No joint or muscle tenderness Extremities: Non tender, 1+ edema, peripheral pulses are present Neuro: Oriented, no tremors, no focal neurological deficits Skin: No rashes Results & Data Vital Signs (Past 12 Hours) Vital Signs Temp Pulse Resp BP Pulse Ox 03/09/19 07:25 36.4 C L 98 H 16 106/72 90 03/08/19 22:55 36.5 C 104 H 16 123/82 94 Laboratory Results Laboratory Results - last 24 hr 03/09/19 03/09/19 05:19 06:35 Sodium 135 L Potassium 3.5 Chloride 89 L Carbon Dioxide 32 Anion Gap 14.0 H BUN 63 H Creatinine 1.75 H Est Cr Clr Drug Dosing 25.2 Est GFR ( Amer) 35.5 Est GFR (Non-Af Amer) 30.7 BUN/Creatinine Ratio 35.8 H Glucose 64 L POC Glucose 63 L* Calcium 8.1 L
[2019-03-09] MEDS: HEPARIN 100 UNIT/ML 5ML FLUSH FLUSH PRN (10:19)
[2019-03-09] MEDS ORDERED: LORazepam 1 MG TAB SL PRN (10:29)
[2019-03-09] MEDS: MoRPHine SULFATE 10 MG/0.5 ML UDP PO SCH ×3 (11:12→22:16)
--- NOTE | 2019-03-09 13:51 | Hospitalist Progress Note ---
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 As per GI, NG tube removed, clear liquids ordered Tolerating clear liquids orally and has been having bowel movement Symptomatically much better Remains stable as of today and back to her baseline Has been complaining of diarrhea since this morning and getting generally weak and lethargic Condition is deteriorating Symptomatic bowel obstruction with increasing pain We will continue supportive care Profuse diarrhea Likely secondary to use of intravenous antibiotic and rule out any C. difficile colitis Could be due to post obstructive diarrhea We will hold TPN for today and check electrolytes tomorrow C Diff-negative Palliative care consulted Patient still prefers to go home with TPN, case management on board, working on getting home health services then transition to hospice at home when patient is ready Patient is very depressed, thinking about withholding TPN and discussing with the family members Discussed with palliative care, they will try to talk to the patient for further management Streptococcus intermedius bacteremia Blood cultures: 03/13 Streptococcus intermedius Repeat blood cultures 03/03/2019 ID consulted-appreciate input and recommendation Recommend echocardiogram: no vegetation noted If negative repeat blood culture, will need 14 days of IV ceftriaxone from first negative blood culture (patient has a port) Hypernatremia Nephrology consulted D5W ordered as per nephrology TPN also adjusted by Pharmacy Sodium level has been normalized Discussed with frame and scrap crusher and she is ready to be discharged Cell Inspector signed off Bilateral leg edema Likely secondary to hypoalbuminemia Complicated by decreasing mobility Advised to elevate the legs while in bed and increase mobility Discussed with the patient Leg edema has been improving Hydronephrosis, left: -CT ABD/pelvis showing moderate hydronephrosis on the left; likely secondary to tumor burden -Has nephrostomy tube on the right that was placed for obstruction secondary to tumor burden -Urology consulted: Appreciate input and recommendations -Creatinine increased to 1.4-1.5 Creatinine slightly up today at 1.57 No more labs to be done IVC thrombosis: Pulmonary embolism: - usually On therapeutic dose Lovenox 50mg BID changed to daily if GFR < 30, monitor daily COPD (chronic obstructive pulmonary disease): -No signs of acute exacerbation -Continue home inhalers DVT prophylaxis: -On therapeutic dose Lovenox Discussed with the daughter in detail The patient seems to be at her baseline and wants to go home We will get PT evaluation today and if okay she can be discharged this afternoon Social service for home health nurse and subsequent transfer to hospice care at home Discussed with the family members The dose of fentanyl has been increased to 50 mcg Roxanol has been prescribed as needed, continue intravenous Dilaudid as needed Phenergan intravenously was given to improve nausea and/or vomiting on top of metoclopramide Prognosis remains poor (2) Comfort measures only status: Detailed discussion with the patient and the family members has been going on for the last few days She decided to go for comfort care at this time Does not under try anymore TPN and wants to have more pain medications Discussed with the family members and they are all agreeable with the decision She was made DNR, TPN and other labs were discontinued She will still have antibiotic and current medications Prognosis remains poor 03/09 The patient was given regular dose of pain medications on top of PRN She was started with the sublingual Ativan to decrease anxiety She did not want to have any TPN but considering some IV fluid to maintain blood glucose level She will have Lovenox as usual and antibiotic as per her choice No more labs to be drawn Will discuss with social service for possible home with home hospice depending on how she does tomorrow Subjective 03/05 The patient was seen and examined in medical floor She is status post right hemicolectomy on 03/23/2017 for CA of the colon with 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, not surgically resectable She was admitted with colonic obstruction and required colonoscopy with stent placement for decompression She has been on TPN as an outpatient Her obstructive symptoms are much better with less abdominal distention and bowel movement She complains to have more swelling of the legs 03/06 The patient was seen and examined in medical floor She remains stable and the leg swelling has been improving Denies any abdominal discomfort and bowel has been moving Abdomen seems to be distended but soft 03/07 The patient was seen and examined in medical floor in presence of the and the daughter She has been complaining of diarrhea mostly since this morning Remains generally weak and lethargic Is not tolerating TPN and not getting any physical therapy 03/08 The patient was seen and examined in presence of the family members She has been feeling a little worse today with increasing abdominal distention with increasing pain, nausea and vomiting She does not want to have any more TPN and wants to have adequate pain relief and be comfortable Discussed with the family members and we are all agreeable to her decision She was made DNR as well 03/09 The patient was seen and examined in presence of the She has been doing well Complaints to have ongoing pain and nausea but no vomiting Weakness persists Review of Systems Review of Systems: All systems reviewed and are unremarkable except as noted below Constitutional: + fatigue, + weakness and + weight loss Eyes: as per Subjective / HPI Gastrointestinal: + bloating and + cramping (Occasional); no abdominal pain, no nausea and no vomiting Physical Exam Physical Exam: Lying in bed with moderate distress secondary to pain and anxiety Constitutional: + ill appearing, + thin and + cachectic; no acute distress Eyes: PERRL, conjunctivae normal, anicteric sclerae ENMT: external ear and nose normal, oropharynx normal Neck: trachea midline, no thyromegaly Respiratory: + respiratory distress (Minimal shortness of breath at rest) Auscultation: lungs clear to auscultation bilaterally Cardiovascular: Rate/Rhythm: regular rate and regular rhythm Heart Sounds: no murmur Extremities: + edema (Has bilateral lower extremity edema up to the upper thighs) Gastrointestinal (Abdomen): Inspection/Auscultation: + abdomen distended and normal bowel sounds (Decreased) Percussion/Palpation: + abdomen tender (Minimally tender) and abdomen soft Lymphatic: no cervical or axillary lymphadenopathy Results & Data Vital Signs (Past 12 Hours) Vital Signs Temp Pulse Resp BP Pulse Ox 03/09/19 07:25 36.4 C L 98 H 16 106/72 90
[2019-03-09] MEDS: CYCLOBENZAPRINE HCL 10 MG TAB PO PRN ×2 (15:30→23:54)
[2019-03-10] MEDS: D5W AND NSS 1,000 ML IV SCH ×2 (01:43→19:55)
[2019-03-10] MEDS: HYDROmorphone INJ 0.5 MG/0.5 ML SYR IV PRN ×2 (01:46→09:09)
[2019-03-10] MEDS: MoRPHine SULFATE 10 MG/0.5 ML UDP PO SCH (05:47)
[2019-03-10] MEDS: PARoxetine HCl 10 MG TAB PO SCH (09:08)
[2019-03-10] MEDS: ENOXAPARIN INJ 60 MG/0.6 ML SYR SQ SCH (09:09)
[2019-03-10] MEDS: TIOTROPIUM BROMIDE 5 PUFF/90 MCG INH INH SCH (09:10)
[2019-03-10] MEDS: BUDESONIDE/FORMOTEROL FUMARATE 160/4.5 60 PUFFS/INHALER INH SCH (09:10)
[2019-03-10] MEDS: cefTRIAXone SODIUM 2,000 MG in DEXTROSE 5% 50 ML IV SCH (09:13)
[2019-03-10] MEDS: CHECK FENTANYL PATCH PLACEMENT SCH ×3 (09:21→23:38)
[2019-03-10] MEDS: METOCLOPRAMIDE HCL INJ 5 MG/ML 2 ML VIAL IV PRN ×2 (09:44→23:38)
[2019-03-10] MEDS: MoRPHine SULFATE 10 MG/0.5 ML UDP PO PRN ×4 (10:41→23:37)
[2019-03-10] MEDS: PROMETHAZINE HCL 12.5 MG in SODIUM CHLORIDE 0.9% 50 ML IV PRN (13:11)
--- NOTE | 2019-03-10 13:50 | Palliative Care Progress Note ---
Date of Service March 10, 2019 Assessment & Plan (1) Goals of care, counseling/discussion: -Patient's pain is controlled with IV Dilaudid and Roxanol. Patient is drowsy-- could be from Dilaudid. Patient and agreed she tolerated the Roxanol well, so I will discontinue the IV Dilaudid and just continue the Roxanol 10mg PO Q3h PRN pain or SOB. -Will switch Zofran to ODT. Also consider some Decadron for nausea if Zofran ineffective. She is also taking IV Compazine, but unable to take anything by mouth. Try oral Zofran. -Talked at length with patient and , as well as with case management. Goal is for comfort and to transition home. Patient DOES want to continue with IV fluids as she is unable to take anything at all by mouth. She also wants to finish her course of IV Rocephin for pneumonia. -Working with case management and [facility] to come up with plan for her. She may need to go home with home health first, then transition to hospice. Or hospice agency may be okay with short-term course of abx and IV fluids since patient's life expectancy is so limited. customer liaison is to meet with patient/family this afternoon. -We will continue to follow. (2) Obstruction, colon: (3) Neuroendocrine carcinoma metastatic to liver: Subjective Patient is a little more drowsy today. Denies pain since she is taking morphine but continues to have N/V, even with ice chips. Multiple visits with patient, her Dirk, and case management. Review of Systems Review of Systems: Const: + generalized weakness ENMT: No dysphagia Resp: No SOB, no cough Cardio: No chest pain, + BLE edema-chronic GI: no abdominal pain, + nausea/vomiting even with ice chips; + small amount of flatus and small amount liquid stool MS: No musculoskeletal pain Neuro: No confusion Psych: No anxiety Physical Exam Constitutional: + cachectic and + frail appearing; no acute distress ENMT: external ear and nose normal, oropharynx normal Neck: normal visual inspection Respiratory: normal respiratory effort, lungs clear to auscultation Auscultation: + diminished lung sounds Cardiovascular: Rate/Rhythm: regular rate and regular rhythm Extremities: + edema (+2 pitting to BLE) Gastrointestinal (Abdomen): Inspection/Auscultation: + abdomen distended (mildly distended) and + hypoactive bowel sounds (only heart on right side of abdomen, absent on left) Percussion/Palpation: + abdomen not soft (firm) Neurologic: moves all extremities and awake; not confused Psychiatric: A+Ox3, euthymic affect Orientation: + not alert (mildly drowsy) Results & Data Vital Signs (Past 12 Hours) Vital Signs Temp Pulse Resp BP Pulse Ox 03/10/19 07:49 36.3 C L 94 H 18 99/62 L 93 Supervising Physician Co-Signing Physician Notes Chart reviewed, patient seen and examined. Collaborated with DEJUAN Salmeron Patient's and brother at bedside. PE: Patient awake and alert, no acute distress HEENT: EOMI, hearing within normal limits Respirations: Unlabored, on room air CV: Tachycardic, no edema Abdomen: Distended, no tenderness to light palpation, rare bowel sounds right l ower quadrant, overall diminished bowel sounds Extremities: Cachectic, full range of motion Neuro: Alert and oriented x4 Agree with above note, assessment and plan as per DEJUAN Salmeron. Plan is for discharge home tomorrow under hospice care-can continue IV hydration, will complete course of IV antibiotics. PG Care Time/CCT Prolonged Care Time Prolonged Care Time: Yes Total Prolonged Care Time: 65 Time Spent Midlevel 65 minutes with >50% of time spent at bedside with patient and family discussing condition and GOC.
[2019-03-10] MEDS ORDERED: ONDANSETRON 4 MG OD TAB PO PRN (14:08)
--- NOTE | 2019-03-10 16:19 | Hospitalist Progress Note ---
Date of Service March 10, 2019 Assessment & Plan (1) Obstruction, colon: (1) Bowel obstruction: (2) Stricture of colon: (3) Neuroendocrine carcinoma: - s/p Colonoscopy 02/28/19, replacement of rectosigmoid stent - PEG tube cancelled and is contraindicated - repeat KUB 03/04:No gross radiographic evidence of a bowel obstruction. As per GI, NG tube removed, clear liquids ordered Tolerating clear liquids orally and has been having bowel movement Symptomatically much better Remains stable as of today and back to her baseline Has been complaining of diarrhea since this morning and getting generally weak and lethargic Condition is deteriorating Symptomatic bowel obstruction with increasing pain We will continue supportive care Remains critical but otherwise stable We will continue intravenous antibiotic as per patient choice Will increase pain medications-appreciate palliative input and recommendation Hospice service consulted and patient will be going home tomorrow Profuse diarrhea Likely secondary to use of intravenous antibiotic and rule out any C. difficile colitis Could be due to post obstructive diarrhea We will hold TPN for today and check electrolytes tomorrow C Diff-negative Palliative care consulted Patient still prefers to go home with TPN, case management on board, working on getting home health services then transition to hospice at home when patient is ready Patient is very depressed, thinking about withholding TPN and discussing with the family members Discussed with palliative care, they will try to talk to the patient for further management Appreciate input and recommendation Streptococcus intermedius bacteremia Blood cultures: 1/2 Streptococcus intermedius Repeat blood cultures 03/03/2019 ID consulted-appreciate input and recommendation Recommend echocardiogram: no vegetation noted If negative repeat blood culture, will need 14 days of IV ceftriaxone from first negative blood culture (patient has a port) Hypernatremia Nephrology consulted D5W ordered as per nephrology TPN also adjusted by Pharmacy Sodium level has been normalized Discussed with display fabrication supervisor and she is ready to be discharged Manager Editorial signed off Bilateral leg edema Likely secondary to hypoalbuminemia Complicated by decreasing mobility Advised to elevate the legs while in bed and increase mobility Discussed with the patient Leg edema has been improving Hydronephrosis, left: -CT ABD/pelvis showing moderate hydronephrosis on the left; likely secondary to tumor burden -Has nephrostomy tube on the right that was placed for obstruction secondary to tumor burden -Urology consulted: Appreciate input and recommendations -Creatinine increased to 1.4-1.5 Creatinine slightly up today at 1.57 No more labs to be done IVC thrombosis: Pulmonary embolism: - usually On therapeutic dose Lovenox 50mg BID changed to daily if GFR < 30, monitor daily COPD (chronic obstructive pulmonary disease): -No signs of acute exacerbation -Continue home inhalers DVT prophylaxis: -On therapeutic dose Lovenox Discussed with the daughter in detail The patient seems to be at her baseline and wants to go home We will get PT evaluation today and if okay she can be discharged this afternoon Social service for home health nurse and subsequent transfer to hospice care at home Discussed with the family members The dose of fentanyl has been increased to 50 mcg Roxanol has been prescribed as needed, continue intravenous Dilaudid as needed Phenergan intravenously was given to improve nausea and/or vomiting on top of metoclopramide Prognosis remains poor (2) Comfort measures only status: Detailed discussion with the patient and the family members has been going on for the last few days She decided to go for comfort care at this time Does not under try anymore TPN and wants to have more pain medications Discussed with the family members and they are all agreeable with the decision She was made DNR, TPN and other labs were discontinued She will still have antibiotic and current medications Prognosis remains poor 03/09 The patient was given regular dose of pain medications on top of PRN She was started with the sublingual Ativan to decrease anxiety She did not want to have any TPN but considering some IV fluid to maintain blood glucose level She will have Lovenox as usual and antibiotic as per her choice No more labs to be drawn Will discuss with social service for possible home with home hospice depending on how she does tomorrow 03/10 Discussed with the patient, family member and the social service Pain medications have been increased IV medicine has been changed to oral Likely to be discharged tomorrow on home hospice. Prognosis remains very poor Subjective 03/05 The patient was seen and examined in medical floor She is status post right hemicolectomy on 03/23/2017 for CA of the colon with 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, not surgically resectable She was admitted with colonic obstruction and required colonoscopy with stent placement for decompression She has been on TPN as an outpatient Her obstructive symptoms are much better with less abdominal distention and bowel movement She complains to have more swelling of the legs 03/06 The patient was seen and examined in medical floor She remains stable and the leg swelling has been improving Denies any abdominal discomfort and bowel has been moving Abdomen seems to be distended but soft 03/07 The patient was seen and examined in medical floor in presence of the and the daughter She has been complaining of diarrhea mostly since this morning Remains generally weak and lethargic Is not tolerating TPN and not getting any physical therapy 03/08 The patient was seen and examined in presence of the family members She has been feeling a little worse today with increasing abdominal distention with increasing pain, nausea and vomiting She does not want to have any more TPN and wants to have adequate pain relief and be comfortable Discussed with the family members and we are all agreeable to her decision She was made DNR as well 03/09 The patient was seen and examined in presence of the She has been doing well Complaints to have ongoing pain and nausea but no vomiting Weakness persists 03/10 The patient was seen and examined in medical floor in presence of the and the daughter She complains to have increasing pain and nausea She plans to go home with home hospice Denies any significant symptoms Review of Systems Review of Systems: All systems reviewed and are unremarkable except as noted below Constitutional: + fatigue, + weakness and + weight loss Eyes: as per Subjective / HPI Gastrointestinal: + bloating and + cramping (Occasional); no abdominal pain, no nausea and no vomiting Physical Exam Physical Exam: Lying in bed with moderate discomfort secondary to pain, abdominal distention with nausea Constitutional: + ill appearing, + thin and + cachectic; no acute distress Eyes: PERRL, conjunctivae normal, anicteric sclerae ENMT: external ear and nose normal, oropharynx normal Neck: trachea midline, no thyromegaly Respiratory: + respiratory distress (Minimal shortness of breath at rest) Auscultation: + diminished lung sounds Cardiovascular: Rate/Rhythm: regular rate and regular rhythm Heart Sounds: no murmur Extremities: + edema (Has bilateral lower extremity edema up to the upper thighs) Gastrointestinal (Abdomen): Inspection/Auscultation: + abdomen distended and normal bowel sounds (Diminished) Percussion/Palpation: + abdomen tender (Mini cari tender) and + abdomen rigid Musculoskeletal: No acute arthritis in any joints Neurologic: Alert and awake and oriented. Generally very weak and lethargic Lymphatic: no cervical or axillary lymphadenopathy Results & Data Vital Signs (Past 12 Hours) Vital Signs Temp Pulse Resp BP Pulse Ox 03/10/19 15:44 36.5 C 106 H 12 103/69 92 03/10/19 07:49 36.3 C L 94 H 18 99/62 L 93
[2019-03-10 23:31] VITALS: PULSE 97; TEMP 98.2; O2SAT 95
[2019-03-11] MEDS: MoRPHine SULFATE 10 MG/0.5 ML UDP PO PRN ×5 (02:37→14:47)
[2019-03-11 07:11] VITALS: BP 87/58
[2019-03-11] MEDS: CHECK FENTANYL PATCH PLACEMENT SCH (08:36)
[2019-03-11] MEDS: cefTRIAXone SODIUM 2,000 MG in DEXTROSE 5% 50 ML IV SCH (08:36)
[2019-03-11] MEDS: ENOXAPARIN INJ 60 MG/0.6 ML SYR SQ SCH (08:41)
[2019-03-11] MEDS: BUDESONIDE/FORMOTEROL FUMARATE 160/4.5 60 PUFFS/INHALER INH SCH (08:42)
[2019-03-11] MEDS: TIOTROPIUM BROMIDE 5 PUFF/90 MCG INH INH SCH (09:23)
--- NOTE | 2019-03-11 10:39 | Hospitalist Progress Note ---
Date of Service March 11, 2019 Assessment & Plan (1) Obstruction, colon: (1) Bowel obstruction: (2) Stricture of colon: (3) Neuroendocrine carcinoma: - s/p Colonoscopy 02/28/19, replacement of rectosigmoid stent - PEG tube cancelled and is contraindicated - repeat KUB 03/04:No gross radiographic evidence of a bowel obstruction. As per GI, NG tube removed, clear liquids ordered Tolerating clear liquids orally and has been having bowel movement Symptomatically much better Remains stable as of today and back to her baseline Has been complaining of diarrhea since this morning and getting generally weak and lethargic Condition is deteriorating Symptomatic bowel obstruction with increasing pain We will continue supportive care Remains critical but otherwise stable We will continue intravenous antibiotic as per patient choice Will increase pain medications-appreciate palliative input and recommendation Her pain is reasonably controlled She will be discharged home with home hospice this morning Discussed in detail with the family members and the patient Profuse diarrhea Likely secondary to use of intravenous antibiotic and rule out any C. difficile colitis Could be due to post obstructive diarrhea We will hold TPN for today and check electrolytes tomorrow C Diff-negative Diarrhea seems to be under control Palliative care consulted Patient still prefers to go home with TPN, case management on board, working on getting home health services then transition to hospice at home when patient is ready Patient is very depressed, thinking about withholding TPN and discussing with the family members Discussed with palliative care, they will try to talk to the patient for further management Appreciate input and recommendation Streptococcus intermedius bacteremia Blood cultures: 1/2 Streptococcus intermedius Repeat blood cultures 03/03/2019 ID consulted-appreciate input and recommendation Recommend echocardiogram: no vegetation noted If negative repeat blood culture, will need 14 days of IV ceftriaxone from first negative blood culture (patient has a port) Wanted to have intravenous antibiotic to finish the course Hypernatremia Nephrology consulted D5W ordered as per nephrology TPN also adjusted by Pharmacy Sodium level has been normalized Discussed with curb attendant and she is ready to be discharged Software Engineering Project Manager signed off Bilateral leg edema Likely secondary to hypoalbuminemia Complicated by decreasing mobility Advised to elevate the legs while in bed and increase mobility Discussed with the patient Bilateral leg edema is improved Hydronephrosis, left: -CT ABD/pelvis showing moderate hydronephrosis on the left; likely secondary to tumor burden -Has nephrostomy tube on the right that was placed for obstruction secondary to tumor burden -Urology consulted: Appreciate input and recommendations -Creatinine increased to 1.4-1.5 Creatinine slightly up today at 1.57 No more labs to be done IVC thrombosis: Pulmonary embolism: - usually On therapeutic dose Lovenox 50mg BID changed to daily if GFR < 30, monitor daily COPD (chronic obstructive pulmonary disease): -No signs of acute exacerbation -Continue home inhalers DVT prophylaxis: -On therapeutic dose Lovenox Discussed with the daughter in detail The patient seems to be at her baseline and wants to go home We will get PT evaluation today and if okay she can be discharged this afternoon Social service for home health nurse and subsequent transfer to hospice care at home Discussed with the family members The dose of fentanyl has been increased to 50 mcg Roxanol has been prescribed as needed, continue intravenous Dilaudid as needed Phenergan intravenously was given to improve nausea and/or vomiting on top of metoclopramide Prognosis remains poor (2) Comfort measures only status: Detailed discussion with the patient and the family members has been going on for the last few days She decided to go for comfort care at this time Does not under try anymore TPN and wants to have more pain medications Discussed with the family members and they are all agreeable with the decision She was made DNR, TPN and other labs were discontinued She will still have antibiotic and current medications Prognosis remains poor 03/09 The patient was given regular dose of pain medications on top of PRN She was started with the sublingual Ativan to decrease anxiety She did not want to have any TPN but considering some IV fluid to maintain blood glucose level She will have Lovenox as usual and antibiotic as per her choice No more labs to be drawn Will discuss with social service for possible home with home hospice depending on how she does tomorrow 03/10 Discussed with the patient, family member and the social service Pain medications have been increased IV medicine has been changed to oral Likely to be discharged tomorrow on home hospice. Prognosis remains very poor 03/11 Discussed with the hospice nurse, social service, the patient and the family members She will be discharged home with home hospice this morning All of her questions were answered Subjective 03/05 The patient was seen and examined in medical floor She is status post right hemicolectomy on 03/23/2017 for CA of the colon with 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, not surgically resectable She was admitted with colonic obstruction and required colonoscopy with stent placement for decompression She has been on TPN as an outpatient Her obstructive symptoms are much better with less abdominal distention and bowel movement She complains to have more swelling of the legs 03/06 The patient was seen and examined in medical floor She remains stable and the leg swelling has been improving Denies any abdominal discomfort and bowel has been moving Abdomen seems to be distended but soft 03/07 The patient was seen and examined in medical floor in presence of the and the daughter She has been complaining of diarrhea mostly since this morning Remains generally weak and lethargic Is not tolerating TPN and not getting any physical therapy 03/08 The patient was seen and examined in presence of the family members She has been feeling a little worse today with increasing abdominal distention with increasing pain, nausea and vomiting She does not want to have any more TPN and wants to have adequate pain relief and be comfortable Discussed with the family members and we are all agreeable to her decision She was made DNR as well 03/09 The patient was seen and examined in presence of the She has been doing well Complaints to have ongoing pain and nausea but no vomiting Weakness persists 03/10 The patient was seen and examined in medical floor in presence of the and the daughter She complains to have increasing pain and nausea She plans to go home with home hospice Denies any significant symptoms 03/11 Patient was seen and examined in presence of the family members She feels a lot better today and denies any significant symptoms Complains to have some pain left side of the abdomen which seems to be colicky Denies any chest pain and/or palpitation, any shortness of breath Her abdomen is not much distended, still having loose stool but the nausea is controlled Her leg edema is improved to Ready to be discharged home with hospice Review of Systems Review of Systems: All systems reviewed and are unremarkable except as noted below Constitutional: + fatigue, + weakness and + weight loss Eyes: as per Subjective / HPI Gastrointestinal: + bloating and + cramping (Occasional); no abdominal pain, no nausea and no vomiting Physical Exam Physical Exam: Lying in bed without significant symptoms Constitutional: + ill appearing, + thin and + cachectic; no acute distress Eyes: PERRL, conjunctivae normal, anicteric sclerae ENMT: external ear and nose normal, oropharynx normal Neck: trachea midline, no thyromegaly Respiratory: no respiratory distress and no labored breathing Auscultation: lungs clear to auscultation bilaterally Cardiovascular: Rate/Rhythm: regular rate and regular rhythm Heart Sounds: no murmur Extremities: + edema (Trace edema bilaterally) Gastrointestinal (Abdomen): Inspection/Auscultation: + abdomen distended and normal bowel sounds (Diminished) Percussion/Palpation: + abdomen tender (Minimally tender) and + abdomen rigid Musculoskeletal: No acute arthritis in any joints Lymphatic: no cervical or axillary lymphadenopathy Results & Data Vital Signs (Past 12 Hours) Vital Signs Temp Pulse Pulse Resp BP BP Pulse Ox 03/11/19 07:10 97 H 16 87/58 L 95 03/10/19 23:30 36.8 C 97 H 14 100/66 95
[2019-03-11] MEDS: fentaNYL 50 MCG/HR TDSY TD SCH (10:57)
[2019-03-11] MEDS: HEPARIN 100 UNIT/ML 5ML FLUSH FLUSH PRN (14:48)
--- NOTE | 2019-03-11 17:19 | Discharge Summary ---
Date of Service March 11, 2019 Admission HPI Per Admitting Provider 64-year-old female who presents the ED for evaluation of vomiting and abdominal pain. Patient has history of diffusely metastatic neuroendocrine carcinoma with extensive tumor burden on the colon s/p prior colonic stent. Patient also has very minimal p.o. intake and has been TPN dependent. Patient reports she always has some degree of nausea and vomiting at baseline however it has been increasing over the past 1 week. She also has noted increasing abdominal distention. She reports multiple episodes of diarrhea. She has been having some bright red bleeding per rectum however reports this is chronic for her secondary to her colonic stent. Bleeding has not increased from baseline. She denies hematemesis and coffee-ground emesis. No chest pain or shortness of breath. Denies lightheadedness, dizziness, diaphoresis, syncopal events. No fevers or chills. Patient has right nephrostomy tube, reports that urine has been somewhat darker in color however not cloudy or foul-smelling. Denies any other urinary symptoms. In the ED, CT ABD/pelvis shows high-grade obstruction at or just above colonic stent. Patient is hemodynamically stable. Initial lactate mildly elevated 2.6 with repeat being 2.3. Patient was given IV diphenhydramine, IV Reglan, IV morphine, IVF. Admission Exam Per Admitting Provider Constitutional: + thin; no acute distress Eyes: PERRL, conjunctivae normal, anicteric sclerae ENMT: external ear and nose normal, oropharynx normal Respiratory: normal respiratory effort, lungs clear to auscultation Cardiovascular: Rate/Rhythm: regular rate and regular rhythm Vessels: normal peripheral pulses Extremities: + edema (+2 edema BLE) Gastrointestinal (Abdomen): Inspection/Auscultation: + abdomen distended; + abnormal bowel sounds (Minimal bowel sounds present) Percussion/Palpation: + abdomen tender (Diffuse) and + abdomen rigid; no guarding and no hepatosplenomegaly Musculoskeletal: no cyanosis or clubbing, extremities motor strength 5/5 Skin: no rashes, warm and dry Neurologic: PERRL, EOMI, accommodation nl, no face palsy, no dysarthria Psychiatric: A+Ox3, euthymic affect Principal Diagnosis Neuroendocrine carcinoma of the colon with recurrent bowel obstructions and status post colonic stent placement, cancer related pain, Streptococcus intermedius bacteremia, hyponatremia, hydronephrosis of left kidney, history of pulmonary embolism, COPD Discharge Exam Constitutional + ill appearing, + thin and + cachectic; no acute distress Eyes PERRL, conjunctivae normal, anicteric sclerae ENMT external ear and nose normal, oropharynx normal Neck trachea midline, no thyromegaly Respiratory no respiratory distress and no labored breathing Auscultation: lungs clear to auscultation bilaterally Cardiovascular Rate/Rhythm: regular rate and regular rhythm Heart Sounds: no murmur Extremities: + edema (Trace edema bilaterally) Gastrointestinal (Abdomen) Inspection/Auscultation: + abdomen distended and normal bowel sounds (Diminished) Percussion/Palpation: + abdomen tender (Minimally tender) and + abdomen rigid Lymphatic no cervical or axillary lymphadenopathy Discharge Data Allergies Allergy/AdvReac Type Severity Reaction Status Date / Time No Known Allergies Allergy Verified 02/28/19 13:40 Consultations 02/28/19 14:06 ED Decision to Admit Stat 02/28/19 17:17 Consult General Surgery Routine Consult Palliative Care Routine 02/28/19 17:18 Consult Gastroenterology Routine 02/28/19 18:21 Consult Urology Routine 03/03/19 08:36 Consult Infectious Diseases Routine 03/03/19 10:34 Consult Nephrology Routine Procedures Performed Operation Date: 02/28/19 09:20 Actual Procedures p Colonoscopy with Urgent Decompression, with Stent Placement(Not Applicable) - Senia Woodward MD Ordered Studies 02/28/19 12:24 CT abd pelvis IV con only Stat 02/28/19 21:00 FL pelvis 1-2V Routine 03/02/19 15:12 CT abd pelvis wo con Routine Hospital Course (1) Obstruction, colon: (1) Bowel obstruction: (2) Stricture of colon: (3) Neuroendocrine carcinoma: - s/p Colonoscopy 02/28/19, replacement of rectosigmoid stent - PEG tube cancelled and is contraindicated - repeat KUB 03/04:No gross radiographic evidence of a bowel obstruction. As per GI, NG tube removed, clear liquids ordered Tolerating clear liquids orally and has been having bowel movement Symptomatically much better Remains stable as of today and back to her baseline Has been complaining of diarrhea since this morning and getting generally weak and lethargic Condition is deteriorating Symptomatic bowel obstruction with increasing pain We will continue supportive care Remains critical but otherwise stable We will continue intravenous antibiotic as per patient choice Will increase pain medications-appreciate palliative input and recommendation Her pain is reasonably controlled She will be discharged home with home hospice this morning Discussed in detail with the family members and the patient Profuse diarrhea Likely secondary to use of intravenous antibiotic and rule out any C. difficile colitis Could be due to post obstructive diarrhea We will hold TPN for today and check electrolytes tomorrow C Diff-negative Diarrhea seems to be under control Palliative care consulted Patient still prefers to go home with TPN, case management on board, working on getting home health services then transition to hospice at home when patient is ready Patient is very depressed, thinking about withholding TPN and discussing with the family members Discussed with palliative care, they will try to talk to the patient for further management Appreciate input and recommendation Streptococcus intermedius bacteremia Blood cultures: 03/13 Streptococcus intermedius Repeat blood cultures 03/03/2019 ID consulted-appreciate input and recommendation Recommend echocardiogram: no vegetation noted If negative repeat blood culture, will need 14 days of IV ceftriaxone from first negative blood culture (patient has a port) Wanted to have intravenous antibiotic to finish the course Hypernatremia Nephrology consulted D5W ordered as per nephrology TPN also adjusted by Pharmacy Sodium level has been normalized Discussed with bail bonding agent and she is ready to be discharged Picking Table Worker signed off Bilateral leg edema Likely secondary to hypoalbuminemia Complicated by decreasing mobility Advised to elevate the legs while in bed and increase mobility Discussed with the patient Bilateral leg edema is improved Hydronephrosis, left: -CT ABD/pelvis showing moderate hydronephrosis on the left; likely secondary to tumor burden -Has nephrostomy tube on the right that was placed for obstruction secondary to tumor burden -Urology consulted: Appreciate input and recommendations -Creatinine increased to 1.4-1.5 Creatinine slightly up today at 1.57 No more labs to be done IVC thrombosis: Pulmonary embolism: - usually On therapeutic dose Lovenox 50mg BID changed to daily if GFR < 30, monitor daily COPD (chronic obstructive pulmonary disease): -No signs of acute exacerbation -Continue home inhalers DVT prophylaxis: -On therapeutic dose Lovenox Discussed with the daughter in detail The patient seems to be at her baseline and wants to go home We will get PT evaluation today and if okay she can be discharged this afternoon Social service for home health nurse and subsequent transfer to hospice care at home Discussed with the family members The dose of fentanyl has been increased to 50 mcg Roxanol has been prescribed as needed, continue intravenous Dilaudid as needed Phenergan intravenously was given to improve nausea and/or vomiting on top of metoclopramide Prognosis remains poor (2) Comfort measures only status: Detailed discussion with the patient and the family members has been going on for the last few days She decided to go for comfort care at this time Does not under try anymore TPN and wants to have more pain medications Discussed with the family members and they are all agreeable with the decision She was made DNR, TPN and other labs were discontinued She will still have antibiotic and current medications Prognosis remains poor 03/09 The patient was given regular dose of pain medications on top of PRN She was started with the sublingual Ativan to decrease anxiety She did not want to have any TPN but considering some IV fluid to maintain blood glucose level She will have Lovenox as usual and antibiotic as per her choice No more labs to be drawn Will discuss with social service for possible home with home hospice depending on how she does tomorrow 03/10 Discussed with the patient, family member and the social service Pain medications have been increased IV medicine has been changed to oral Likely to be discharged tomorrow on home hospice. 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 and status post colonic stent placement, cancer related pain, Streptococcus intermedius bacteremia, hyponatremia, hydronephrosis of left kidney, history of pulmonary embolism, COPD Condition on Discharge: Fair Activity: Resume your previous activity Non-emergency contact: Transportation Modeler Call non-emergency contact if: you have any medication questions Follow-up/Referrals: Zahida Mcgill DO [Primary Care Provider] - 03/11/19 10:45 am (You will be under the care of hospice team) Diet: Clear liquid Diet Comment: Only clear liquids as tolerated Addtl Attending Provider Instructions: Please take precaution to avoid falls Continue pain medications as prescribed She will also get dextrose with normal saline infusion to treat hypoglycemia and intravenous ceftriaxone to finish the course Pending Studies at Discharge: No Stand-Alone Forms: My [facility] Medications and DC Order Prescriptions: New fentanyl 50 mcg/hr Patch 72 Hour 50 mcg transdermal Q3D@1030 Qty: 3 RF: 0 morphine concentrate 100 mg/5 mL (20 mg/mL) Solution 10 mg PO Q3H PRN (Reason: pain) 5 Days Qty: 15 RF: 0 lorazepam 1 mg Tablet 1 mg sublingual Q3H PRN (Reason: anxiety) 5 Days Qty: 20 RF: 0 ondansetron 4 mg Tablet,Disintegrating 4 mg PO Q6H PRN (Reason: nausea and vomiting) 10 Days Qty: 30 RF: 0 Continued albuterol sulfate [ProAir HFA] 90 mcg/actuation Hfa Aerosol Inhaler 2 puff INHALATION Q6H PRN (Reason: Shortness Of Breath Or Wheezing) RF: 0 Symbicort 160-4.5 mcg/actuation Hfa Aerosol Inhaler 1 puff INHALATION QAM RF: 0 simethicone [Gas Relief] 80 mg Tablet,Chewable 80 mg PO DIRECTED PRN (Reason: FOR GAS RELIEF) RF: 0 cyclobenzaprine 10 mg tablet 10 mg PO TID PRN (Reason: muscle spasm) Qty: 90 RF: 3 loperamide [Imodium A-D] 2 mg Tablet 2 mg PO Q4H PRN (Reason: Diarrhea) RF: 0 diphenoxylate-atropine 2.5-0.025 mg tablet 1 tab PO Q4H PRN (Reason: Diarrhea) RF: 0 Spiriva Respimat 2.5 mcg/actuation mist 2 puff INHALATION QAM RF: 0 enoxaparin 60 mg/0.6 mL Syringe 50 mg subcut Q12H 30 Days Qty: 30 RF: 2 Discontinued paroxetine HCl 20 mg tablet 30 mg PO QAM RF: 0 oxycodone 20 mg/mL concentrate 0.25 mg PO Q4H PRN (Reason: Pain) RF: 0 fentanyl 12 mcg/hr patch 72 hour 12 mcg transdermal Q72H RF: 0 allopurinol 300 mg tablet 300 mg PO DAILY RF: 0 lorazepam 0.5 mg tablet 0.5 mg PO BID PRN (Reason: Sleep) RF: 0 Discharge Orders: Discharge Order (Routine); Ordered 03/11/19 Ordered By: Madelaine Morgan/Other Patient Handouts: Hospice Pain Management Admission Data Admit Date/Time: 02/28/19 14:55 Attending Provider: Madelaine Herrera Admit Provider: Shea Schneider Primary Care Provider: Zahida Mcgill Other Providers: Shea Schneider ; Davon Telles ; Lilo Reynoso ; Senia Woodward ; Austin Guerra ; Kizzy Torre ; Odalis Colby ; [facility] ; Oli Doyle Other Interventions: Discharge Summary Assessment (RN) Last Done: 03/11/19 11:36 DC Date/Time DO NOT enter until pt leaves facility: 03/11/19 15:11
--- NOTE | 2019-03-18 15:01 | Coding Query ---
SEPSIS To promote full compliance with coding requirements relating to patient care, physician participation is requested in all cases of resource forester uncertainty. Please assist us with the question(s) below: In responding to this query, please exercise your independent professional judgement. The fact that a question is asked does not imply that any particular answer is desired or expected. We appreciate your clarification on this issue. Throughout the medical record, you have clearly documented a localized infection and your patient has clinical evidence of a generalized sepsis or severe sepsis. The term urosepsis is a nonspecific entity and is coded as an UTI. If the patient has sepsis, severe sepsis, from an urinary source or some other source, please clarify in your response below. The medical record reflects the following clinical findings: Patient admitted with increased tumor burden in large intestine causing obstruction. Progress notes document Septicemia; DS documents Bacteremia due to Strep Intermedius- with cultures revealing Strep Intermedius. Plesae check below the diagnosis that was treated pertaining to the positive blood cultures. Thank you ! [facility]RISTOFER [facility] ____ (+ )Bacteremia (Nonspecific laboratory finding of bacteria in the blood) Specify Organism ( +) Present on Admission ( ) Not present on admission ( ) Unable to clinically determine ( ) Septicemia (Systemic disease associated with the presence of pathogenic microorganisms in the blood): Specify Organism ( ) Present on Admission ( ) Not present on admission ( ) Unable to clinically determine ( ) Sepsis Specify Organism Specify Associated Condition/Diagnosis ( ) Present on Admission ( ) Not present on admission ( ) Unable to clinically determine ( ) Severe Sepsis (Sepsis associated with acute organ dysfunction) Specify Organism Specify Associated Condition/Diagnosis ( ) Present on Admission ( ) Not present on admission ( ) Unable to clinically determine ( ) Septic Shock (Severe sepsis with acute circulatory failure, unexplained by other causes) ( ) Present on Admission ( ) Not present on admission ( ) Unable to clinically determine (+ ) Other, patient has: The patient had the following diagnoses: 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
== END 2019-03-11 15:11 | disposition hospice, home (50) | DRG 388 ==
LOC: ED 11:58 → SUATTDRO 14:55 → 3W 14:55